=== PATIENT | female | born 1980 ===

== ENCOUNTER 2016-03-19 | Inpatient (IN) | END 2017-03-18 23:59 | disposition other institution (70) | DRG 189 | DX: J96.10 Chronic respiratory failure, unspecified whether with hypoxia or hypercapnia (principal); R40.3 Persistent vegetative state; R53.2 Functional quadriplegia; Z93.0 Tracheostomy status; R13.10 Dysphagia, unspecified; S12.000S Unspecified displaced fracture of first cervical vertebra, sequela; S12.100S Unspecified displaced fracture of second cervical vertebra, sequela; S12.200S Unspecified displaced fracture of third cervical vertebra, sequela; S12.300S Unspecified displaced fracture of fourth cervical vertebra, sequela; V89.2XXS Person injured in unspecified motor-vehicle accident, traffic, sequela; Z86.74 Personal history of sudden cardiac arrest; Z88.0 Allergy status to penicillin; Z93.1 Gastrostomy status; Z87.820 Personal history of traumatic brain injury; K21.9 Gastro-esophageal reflux disease without esophagitis; M24.50 Contracture, unspecified joint; I25.10 Atherosclerotic heart disease of native coronary artery without angina pectoris; D53.9 Nutritional anemia, unspecified; Z87.440 Personal history of urinary (tract) infections ==

== ENCOUNTER 2017-03-19 | Inpatient (IN) | END 2018-03-18 11:59 | disposition other institution (70) | DRG 189 | DX: J96.10 Chronic respiratory failure, unspecified whether with hypoxia or hypercapnia (principal); R53.2 Functional quadriplegia; R40.3 Persistent vegetative state; G93.40 Encephalopathy, unspecified; L03.113 Cellulitis of right upper limb; N39.0 Urinary tract infection, site not specified; R47.01 Aphasia; Z93.0 Tracheostomy status; R13.10 Dysphagia, unspecified; S12.000S Unspecified displaced fracture of first cervical vertebra, sequela; S12.100S Unspecified displaced fracture of second cervical vertebra, sequela; S12.200S Unspecified displaced fracture of third cervical vertebra, sequela; S12.300S Unspecified displaced fracture of fourth cervical vertebra, sequela; V89.2XXS Person injured in unspecified motor-vehicle accident, traffic, sequela; Z86.74 Personal history of sudden cardiac arrest; Z88.0 Allergy status to penicillin; Z93.1 Gastrostomy status; Z87.820 Personal history of traumatic brain injury; K21.9 Gastro-esophageal reflux disease without esophagitis; M24.50 Contracture, unspecified joint; I25.10 Atherosclerotic heart disease of native coronary artery without angina pectoris; D53.9 Nutritional anemia, unspecified; Z87.440 Personal history of urinary (tract) infections; D69.6 Thrombocytopenia, unspecified; K59.00 Constipation, unspecified; K80.20 Calculus of gallbladder without cholecystitis without obstruction; R21 Rash and other nonspecific skin eruption ==

== ENCOUNTER 2018-03-19 | Inpatient (IN) | END 2019-03-18 23:59 | disposition still patient (30) | DRG 189 | DX: J96.10 Chronic respiratory failure, unspecified whether with hypoxia or hypercapnia (principal); R53.2 Functional quadriplegia; R40.3 Persistent vegetative state; G93.40 Encephalopathy, unspecified; R47.01 Aphasia; Z93.0 Tracheostomy status; R13.10 Dysphagia, unspecified; S12.000S Unspecified displaced fracture of first cervical vertebra, sequela; S12.100S Unspecified displaced fracture of second cervical vertebra, sequela; S12.200S Unspecified displaced fracture of third cervical vertebra, sequela; S12.300S Unspecified displaced fracture of fourth cervical vertebra, sequela; V89.2XXS Person injured in unspecified motor-vehicle accident, traffic, sequela; Z86.74 Personal history of sudden cardiac arrest; Z88.0 Allergy status to penicillin; Z93.1 Gastrostomy status; Z87.820 Personal history of traumatic brain injury; K21.9 Gastro-esophageal reflux disease without esophagitis; M24.50 Contracture, unspecified joint; I25.10 Atherosclerotic heart disease of native coronary artery without angina pectoris; D53.9 Nutritional anemia, unspecified; Z87.440 Personal history of urinary (tract) infections; D69.6 Thrombocytopenia, unspecified; R21 Rash and other nonspecific skin eruption ==

== ENCOUNTER → 2020-03-18 23:59 | Inpatient (IN) | payer OTHER, MEDICARE ==
[2019-03-20] MEDS: MIDODRINE 10 MG PEG SCH ×2 (14:20→21:37)
[2019-03-20 14:34] VITALS: BP 103/61
[2019-03-20] MEDS: ACETAMINOPHEN 650 MG/20 ML UDC- SA PATIENTS-PAIN ONLY PEG SCH (16:42)
[2019-03-20] MEDS: TIZANIDINE HCL 4 MG TABLET PEG SCH (16:43)
[2019-03-20 20:00] VITALS: BP 102/64
[2019-03-20] MEDS: HYDROGEN PEROXIDE 3% 118 ML BOTTLE TP SCH (20:42)
[2019-03-20] MEDS: FERROUS SULFATE 330 MG/7.5 ML UDC- FOR SA ONLY GT SCH (21:33)
[2019-03-20] MEDS: NUTRISOURCE FIBER 4 GM PACKET PEG SCH (21:33)
[2019-03-20] MEDS: Z GUARD REMEDY PASTE 57 GM TUBE TOP SCH (21:36)
[2019-03-20] MEDS: PROTEIN SUPPLEMENT (PROSTAT) 30 ML LIQUID PEG SCH (21:36)
[2019-03-21] MEDS: TWOCAL HN 1,000 ML LIQUID PEG PRN (05:33)
[2019-03-21] MEDS: MIDODRINE 10 MG PEG SCH ×3 (05:34→21:02)
[2019-03-21] MEDS: OMEPRAZOLE 20 MG CAPSULE.DR GT SCH (05:34)
[2019-03-21 05:36] VITALS: BP 106/66
[2019-03-21] MEDS: TIZANIDINE HCL 4 MG TABLET PEG SCH ×2 (08:09→16:17)
[2019-03-21] MEDS: NUTRISOURCE FIBER 4 GM PACKET PEG SCH ×2 (08:09→20:03)
[2019-03-21] MEDS: PROTEIN SUPPLEMENT (PROSTAT) 30 ML LIQUID PEG SCH ×2 (08:09→20:03)
[2019-03-21] MEDS: FERROUS SULFATE 330 MG/7.5 ML UDC- FOR SA ONLY GT SCH ×2 (08:09→20:03)
[2019-03-21] MEDS: Z GUARD REMEDY PASTE 57 GM TUBE TOP SCH ×2 (08:10→20:03)
[2019-03-21] MEDS: HYDROGEN PEROXIDE 3% 118 ML BOTTLE TP SCH ×2 (09:57→21:40)
[2019-03-21 11:26] VITALS: BP 97/56
[2019-03-21] MEDS: ACETAMINOPHEN 650 MG/20 ML UDC- SA PATIENTS-PAIN ONLY PEG SCH (16:17)
[2019-03-21 20:16] VITALS: BP 91/48
[2019-03-22] MEDS: MULTIVIT, IRON, MIN NO. 8, FA TABLET GT SCH (05:35)
[2019-03-22] MEDS: MIDODRINE 10 MG PEG SCH ×3 (05:35→21:11)
[2019-03-22] MEDS: OMEPRAZOLE 20 MG CAPSULE.DR GT SCH (05:35)
[2019-03-22 07:47] VITALS: BP 93/57
[2019-03-22] MEDS: FERROUS SULFATE 330 MG/7.5 ML UDC- FOR SA ONLY GT SCH ×2 (09:05→20:19)
[2019-03-22] MEDS: Z GUARD REMEDY PASTE 57 GM TUBE TOP SCH ×2 (09:05→20:19)
[2019-03-22] MEDS: NUTRISOURCE FIBER 4 GM PACKET PEG SCH ×2 (09:05→20:19)
[2019-03-22] MEDS: PROTEIN SUPPLEMENT (PROSTAT) 30 ML LIQUID PEG SCH ×2 (09:05→20:19)
[2019-03-22] MEDS: TIZANIDINE HCL 4 MG TABLET PEG SCH ×2 (09:05→16:07)
[2019-03-22] MEDS: HYDROGEN PEROXIDE 3% 118 ML BOTTLE TP SCH ×2 (10:30→21:57)
[2019-03-22 13:30] VITALS: BP 91/54
[2019-03-22] MEDS: ACETAMINOPHEN 650 MG/20 ML UDC- SA PATIENTS-PAIN ONLY PEG SCH (16:08)
[2019-03-22] MEDS: TRIAMCINOLONE ACET 0.1% OINT 15 GM TUBE TP PRN (16:09)
[2019-03-22 20:16] VITALS: BP 113/69
--- NOTE | 2019-03-22 21:11 | NUR ---
2200 MIDODRINE 10MG TABLET HELD ORDERED DUE TO SBP GREATER THAN 110. BP IS 113/69, 66 HR. WILL CONTINUE TO MONITOR
[2019-03-22] MEDS: TWOCAL HN 1,000 ML LIQUID PEG PRN (21:49)
[2019-03-23] MEDS: OMEPRAZOLE 20 MG CAPSULE.DR GT SCH (05:36)
[2019-03-23] MEDS: MIDODRINE 10 MG PEG SCH ×3 (05:36→21:15)
[2019-03-23] MEDS: HYDROGEN PEROXIDE 3% 118 ML BOTTLE TP SCH ×2 (07:51→20:43)
[2019-03-23 08:03] VITALS: BP 122/71
[2019-03-23] MEDS: NUTRISOURCE FIBER 4 GM PACKET PEG SCH ×2 (08:58→21:15)
[2019-03-23] MEDS: Z GUARD REMEDY PASTE 57 GM TUBE TOP SCH ×2 (08:58→21:15)
[2019-03-23] MEDS: FERROUS SULFATE 330 MG/7.5 ML UDC- FOR SA ONLY GT SCH ×2 (08:58→21:15)
[2019-03-23] MEDS: PROTEIN SUPPLEMENT (PROSTAT) 30 ML LIQUID PEG SCH ×2 (08:58→21:15)
[2019-03-23] MEDS: TIZANIDINE HCL 4 MG TABLET PEG SCH ×2 (08:58→17:17)
[2019-03-23] MEDS: ACETAMINOPHEN 650 MG/20 ML UDC- SA PATIENTS-PAIN ONLY PEG SCH (17:17)
[2019-03-23 20:26] VITALS: BP 102/63
[2019-03-23] MEDS: DOCUSATE SODIUM 100 MG/10 ML LIQUID UDC GT PRN (21:15)
[2019-03-24] MEDS: OMEPRAZOLE 20 MG CAPSULE.DR GT SCH (05:39)
[2019-03-24] MEDS: MIDODRINE 10 MG PEG SCH ×3 (05:39→22:08)
[2019-03-24] MEDS: MULTIVIT, IRON, MIN NO. 8, FA TABLET GT SCH (05:40)
[2019-03-24 08:00] VITALS: BP 104/62
[2019-03-24] MEDS: TIZANIDINE HCL 4 MG TABLET PEG SCH ×2 (08:18→17:45)
[2019-03-24] MEDS: FERROUS SULFATE 330 MG/7.5 ML UDC- FOR SA ONLY GT SCH ×2 (08:18→20:46)
[2019-03-24] MEDS: NUTRISOURCE FIBER 4 GM PACKET PEG SCH ×2 (08:18→20:46)
[2019-03-24] MEDS: Z GUARD REMEDY PASTE 57 GM TUBE TOP SCH ×2 (08:18→20:46)
[2019-03-24] MEDS: PROTEIN SUPPLEMENT (PROSTAT) 30 ML LIQUID PEG SCH ×2 (08:18→20:46)
[2019-03-24] MEDS: HYDROGEN PEROXIDE 3% 118 ML BOTTLE TP SCH ×2 (09:00→21:18)
[2019-03-24] MEDS: ACETAMINOPHEN 650 MG/20 ML UDC- SA PATIENTS-PAIN ONLY PEG SCH (17:45)
[2019-03-24 20:05] VITALS: BP 100/60
[2019-03-25] MEDS: MIDODRINE 10 MG PEG SCH ×3 (05:49→21:48)
[2019-03-25] MEDS: OMEPRAZOLE 20 MG CAPSULE.DR GT SCH (05:49)
[2019-03-25 08:00] VITALS: BP 111/68
[2019-03-25] MEDS: HYDROGEN PEROXIDE 3% 118 ML BOTTLE TP SCH ×2 (09:00→21:27)
[2019-03-25] MEDS: FERROUS SULFATE 330 MG/7.5 ML UDC- FOR SA ONLY GT SCH ×2 (09:00→21:47)
[2019-03-25] MEDS: PROTEIN SUPPLEMENT (PROSTAT) 30 ML LIQUID PEG SCH ×2 (09:00→21:48)
[2019-03-25] MEDS: NUTRISOURCE FIBER 4 GM PACKET PEG SCH ×2 (09:00→21:48)
[2019-03-25] MEDS: TIZANIDINE HCL 4 MG TABLET PEG SCH ×2 (09:00→17:59)
[2019-03-25] MEDS: Z GUARD REMEDY PASTE 57 GM TUBE TOP SCH ×2 (09:00→21:48)
[2019-03-25] MEDS: ACETAMINOPHEN 650 MG/20 ML UDC- SA PATIENTS-PAIN ONLY PEG SCH (17:59)
[2019-03-25 19:51] VITALS: BP 100/57
[2019-03-26] MEDS: MULTIVIT, IRON, MIN NO. 8, FA TABLET GT SCH (06:15)
[2019-03-26] MEDS: OMEPRAZOLE 20 MG CAPSULE.DR GT SCH (06:15)
[2019-03-26] MEDS: MIDODRINE 10 MG PEG SCH ×3 (06:15→22:06)
[2019-03-26 08:00] VITALS: BP 109/64
[2019-03-26] MEDS: FERROUS SULFATE 330 MG/7.5 ML UDC- FOR SA ONLY GT SCH ×2 (08:14→21:00)
[2019-03-26] MEDS: Z GUARD REMEDY PASTE 57 GM TUBE TOP SCH ×2 (08:14→21:00)
[2019-03-26] MEDS: TIZANIDINE HCL 4 MG TABLET PEG SCH ×2 (08:14→17:13)
[2019-03-26] MEDS: NUTRISOURCE FIBER 4 GM PACKET PEG SCH ×2 (08:14→21:00)
[2019-03-26] MEDS: PROTEIN SUPPLEMENT (PROSTAT) 30 ML LIQUID PEG SCH ×2 (08:14→21:00)
[2019-03-26] MEDS: HYDROGEN PEROXIDE 3% 118 ML BOTTLE TP SCH ×2 (09:23→20:52)
--- NOTE | 2019-03-26 15:05 | NUR ---
1:45pm: JEY met with patient's mother Morena today and obtained signatures on all annual admission paperwork for patient's new chart. The paperwork included: Conditions of Admission, Patient Rights Acknowledgement, An Important Message from Medicare about your Rights, Documentation of Preferred Intensity of Care, Voluntary Prior Express Consent Form, Race and Ethnicity Patient Self-Identification, and the [facility] Agreement. JEY offered Morena a copy of the signed forms, and Morena declined stating that she has copies from previous signings. For assessment/quarterly information, see patient's previous chart #[id number].
[2019-03-26] MEDS: ACETAMINOPHEN 650 MG/20 ML UDC- SA PATIENTS-PAIN ONLY PEG SCH (17:13)
[2019-03-26 20:02] VITALS: BP 97/53
[2019-03-27] MEDS: TWOCAL HN 1,000 ML LIQUID PEG PRN (04:00)
[2019-03-27] MEDS: OMEPRAZOLE 20 MG CAPSULE.DR GT SCH (05:59)
[2019-03-27] MEDS: MIDODRINE 10 MG PEG SCH ×3 (06:00→21:38)
[2019-03-27 08:04] VITALS: BP 111/54
[2019-03-27] MEDS: PROTEIN SUPPLEMENT (PROSTAT) 30 ML LIQUID PEG SCH ×2 (08:55→21:37)
[2019-03-27] MEDS: NUTRISOURCE FIBER 4 GM PACKET PEG SCH ×2 (08:55→21:37)
[2019-03-27] MEDS: FERROUS SULFATE 330 MG/7.5 ML UDC- FOR SA ONLY GT SCH ×2 (08:55→21:37)
[2019-03-27] MEDS: Z GUARD REMEDY PASTE 57 GM TUBE TOP SCH ×2 (08:55→21:37)
[2019-03-27] MEDS: TIZANIDINE HCL 4 MG TABLET PEG SCH ×2 (08:55→16:11)
[2019-03-27] MEDS: HYDROGEN PEROXIDE 3% 118 ML BOTTLE TP SCH ×2 (09:00→21:00)
[2019-03-27 14:23] VITALS: BP 96/53
[2019-03-27] MEDS: ACETAMINOPHEN 650 MG/20 ML UDC- SA PATIENTS-PAIN ONLY PEG SCH (16:11)
[2019-03-27] MEDS: POLYVINYL ALCOHOL OPHT DROPS 15 ML BOTTLE EACHEYE PRN (17:06)
[2019-03-27] MEDS: TRIAMCINOLONE ACET 0.1% OINT 15 GM TUBE TP PRN (17:06)
[2019-03-27 20:34] VITALS: BP 106/61
[2019-03-28] MEDS: MIDODRINE 10 MG PEG SCH ×3 (05:58→21:40)
[2019-03-28] MEDS: OMEPRAZOLE 20 MG CAPSULE.DR GT SCH (05:58)
[2019-03-28] MEDS: MULTIVIT, IRON, MIN NO. 8, FA TABLET GT SCH (05:59)
[2019-03-28 08:05] VITALS: BP 97/57
[2019-03-28] MEDS: Z GUARD REMEDY PASTE 57 GM TUBE TOP SCH ×2 (08:33→21:40)
[2019-03-28] MEDS: NUTRISOURCE FIBER 4 GM PACKET PEG SCH ×2 (08:33→21:40)
[2019-03-28] MEDS: FERROUS SULFATE 330 MG/7.5 ML UDC- FOR SA ONLY GT SCH ×2 (08:33→21:40)
[2019-03-28] MEDS: TIZANIDINE HCL 4 MG TABLET PEG SCH ×2 (08:33→16:31)
[2019-03-28] MEDS: PROTEIN SUPPLEMENT (PROSTAT) 30 ML LIQUID PEG SCH ×2 (08:33→21:40)
[2019-03-28] MEDS: HYDROGEN PEROXIDE 3% 118 ML BOTTLE TP SCH ×2 (09:00→21:17)
[2019-03-28 14:48] VITALS: BP 98/64
[2019-03-28] MEDS: ACETAMINOPHEN 650 MG/20 ML UDC- SA PATIENTS-PAIN ONLY PEG SCH (16:31)
[2019-03-28 20:07] VITALS: BP 99/55
[2019-03-29] MEDS: TWOCAL HN 1,000 ML LIQUID PEG PRN (04:33)
[2019-03-29] MEDS: MIDODRINE 10 MG PEG SCH ×3 (05:13→21:24)
[2019-03-29] MEDS: OMEPRAZOLE 20 MG CAPSULE.DR GT SCH (05:13)
[2019-03-29 08:00] VITALS: BP 117/64
[2019-03-29] MEDS: FERROUS SULFATE 330 MG/7.5 ML UDC- FOR SA ONLY GT SCH ×2 (08:30→21:21)
[2019-03-29] MEDS: PROTEIN SUPPLEMENT (PROSTAT) 30 ML LIQUID PEG SCH ×2 (08:30→21:22)
[2019-03-29] MEDS: Z GUARD REMEDY PASTE 57 GM TUBE TOP SCH ×2 (08:30→21:22)
[2019-03-29] MEDS: TIZANIDINE HCL 4 MG TABLET PEG SCH ×2 (08:30→17:36)
[2019-03-29] MEDS: NUTRISOURCE FIBER 4 GM PACKET PEG SCH ×2 (08:30→21:22)
[2019-03-29] MEDS: POLYVINYL ALCOHOL OPHT DROPS 15 ML BOTTLE EACHEYE PRN (08:30)
[2019-03-29] MEDS: TRIAMCINOLONE ACET 0.1% OINT 15 GM TUBE TP PRN (08:31)
[2019-03-29] MEDS: HYDROGEN PEROXIDE 3% 118 ML BOTTLE TP SCH ×2 (09:39→20:54)
[2019-03-29 10:34] VITALS: BP 117/64
[2019-03-29 14:13] VITALS: BP 98/60
[2019-03-29] MEDS: ACETAMINOPHEN 650 MG/20 ML UDC- SA PATIENTS-PAIN ONLY PEG SCH (17:36)
[2019-03-30] MEDS: MULTIVIT, IRON, MIN NO. 8, FA TABLET GT SCH (06:07)
[2019-03-30] MEDS: OMEPRAZOLE 20 MG CAPSULE.DR GT SCH (06:07)
[2019-03-30] MEDS: MIDODRINE 10 MG PEG SCH ×3 (06:07→21:10)
[2019-03-30 08:00] VITALS: BP 101/66
[2019-03-30] MEDS: Z GUARD REMEDY PASTE 57 GM TUBE TOP SCH ×2 (08:44→21:10)
[2019-03-30] MEDS: TIZANIDINE HCL 4 MG TABLET PEG SCH ×2 (08:44→16:56)
[2019-03-30] MEDS: NUTRISOURCE FIBER 4 GM PACKET PEG SCH ×2 (08:44→21:10)
[2019-03-30] MEDS: FERROUS SULFATE 330 MG/7.5 ML UDC- FOR SA ONLY GT SCH ×2 (08:44→21:10)
[2019-03-30] MEDS: PROTEIN SUPPLEMENT (PROSTAT) 30 ML LIQUID PEG SCH ×2 (08:44→21:10)
[2019-03-30] MEDS: HYDROGEN PEROXIDE 3% 118 ML BOTTLE TP SCH ×2 (10:06→20:52)
[2019-03-30] MEDS: ACETAMINOPHEN 650 MG/20 ML UDC- SA PATIENTS-PAIN ONLY PEG SCH (16:56)
[2019-03-30 19:53] VITALS: BP 97/49
[2019-03-31] MEDS: OMEPRAZOLE 20 MG CAPSULE.DR GT SCH (05:35)
[2019-03-31] MEDS: MIDODRINE 10 MG PEG SCH ×3 (05:35→22:00)
[2019-03-31 08:00] VITALS: BP 109/66
[2019-03-31] MEDS: HYDROGEN PEROXIDE 3% 118 ML BOTTLE TP SCH ×2 (09:00→20:16)
[2019-03-31] MEDS: FERROUS SULFATE 330 MG/7.5 ML UDC- FOR SA ONLY GT SCH ×2 (09:32→21:50)
[2019-03-31] MEDS: Z GUARD REMEDY PASTE 57 GM TUBE TOP SCH ×2 (09:32→21:50)
[2019-03-31] MEDS: PROTEIN SUPPLEMENT (PROSTAT) 30 ML LIQUID PEG SCH ×2 (09:32→21:50)
[2019-03-31] MEDS: TIZANIDINE HCL 4 MG TABLET PEG SCH ×2 (09:32→16:34)
[2019-03-31] MEDS: NUTRISOURCE FIBER 4 GM PACKET PEG SCH ×2 (09:32→21:50)
[2019-03-31 14:44] VITALS: BP 109/60
--- NOTE | 2019-03-31 15:42 | NUR ---
SW notified patient's mother Morena via email that the next IDT meeting for the patient is scheduled for 04/08/2019 at 11am.
[2019-03-31] MEDS: ACETAMINOPHEN 650 MG/20 ML UDC- SA PATIENTS-PAIN ONLY PEG SCH (16:34)
[2019-03-31 20:21] VITALS: BP 97/50
[2019-04-01 05:05] VITALS: BP 97/58
[2019-04-01] MEDS: OMEPRAZOLE 20 MG CAPSULE.DR GT SCH (05:09)
[2019-04-01] MEDS: MIDODRINE 10 MG PEG SCH ×3 (05:09→21:51)
[2019-04-01] MEDS: MULTIVIT, IRON, MIN NO. 8, FA TABLET GT SCH (05:37)
[2019-04-01 08:00] VITALS: BP 113/73
[2019-04-01] MEDS: NUTRISOURCE FIBER 4 GM PACKET PEG SCH ×2 (08:49→21:51)
[2019-04-01] MEDS: TIZANIDINE HCL 4 MG TABLET PEG SCH ×2 (08:49→16:00)
[2019-04-01] MEDS: FERROUS SULFATE 330 MG/7.5 ML UDC- FOR SA ONLY GT SCH ×2 (08:49→21:51)
[2019-04-01] MEDS: PROTEIN SUPPLEMENT (PROSTAT) 30 ML LIQUID PEG SCH ×2 (08:49→21:51)
[2019-04-01] MEDS: Z GUARD REMEDY PASTE 57 GM TUBE TOP SCH ×2 (08:49→21:51)
[2019-04-01] MEDS: HYDROGEN PEROXIDE 3% 118 ML BOTTLE TP SCH ×2 (09:00→20:56)
[2019-04-01] MEDS: ACETAMINOPHEN 650 MG/20 ML UDC- SA PATIENTS-PAIN ONLY PEG SCH (16:00)
[2019-04-01 19:47] VITALS: BP 91/60
[2019-04-02] MEDS: MIDODRINE 10 MG PEG SCH ×3 (06:05→22:22)
[2019-04-02] MEDS: OMEPRAZOLE 20 MG CAPSULE.DR GT SCH (06:05)
[2019-04-02 07:56] VITALS: BP 91/45
[2019-04-02] MEDS: TIZANIDINE HCL 4 MG TABLET PEG SCH ×2 (08:42→16:08)
[2019-04-02] MEDS: NUTRISOURCE FIBER 4 GM PACKET PEG SCH ×2 (08:42→20:32)
[2019-04-02] MEDS: PROTEIN SUPPLEMENT (PROSTAT) 30 ML LIQUID PEG SCH ×2 (08:42→20:33)
[2019-04-02] MEDS: Z GUARD REMEDY PASTE 57 GM TUBE TOP SCH ×2 (08:42→20:33)
[2019-04-02] MEDS: FERROUS SULFATE 330 MG/7.5 ML UDC- FOR SA ONLY GT SCH ×2 (08:42→20:27)
[2019-04-02] MEDS: HYDROGEN PEROXIDE 3% 118 ML BOTTLE TP SCH ×2 (08:57→21:10)
[2019-04-02] MEDS: ACETAMINOPHEN 650 MG/20 ML UDC- SA PATIENTS-PAIN ONLY PEG SCH (16:08)
[2019-04-02 20:09] VITALS: BP 93/51
[2019-04-03] MEDS: OMEPRAZOLE 20 MG CAPSULE.DR GT SCH (05:11)
[2019-04-03] MEDS: MIDODRINE 10 MG PEG SCH ×3 (05:12→21:48)
[2019-04-03] MEDS: MULTIVIT, IRON, MIN NO. 8, FA TABLET GT SCH (05:31)
[2019-04-03 08:00] VITALS: BP 120/60
[2019-04-03] MEDS: TIZANIDINE HCL 4 MG TABLET PEG SCH ×2 (08:52→17:28)
[2019-04-03] MEDS: PROTEIN SUPPLEMENT (PROSTAT) 30 ML LIQUID PEG SCH ×2 (08:52→20:33)
[2019-04-03] MEDS: FERROUS SULFATE 330 MG/7.5 ML UDC- FOR SA ONLY GT SCH ×2 (08:52→20:33)
[2019-04-03] MEDS: NUTRISOURCE FIBER 4 GM PACKET PEG SCH ×2 (08:52→20:33)
[2019-04-03] MEDS: Z GUARD REMEDY PASTE 57 GM TUBE TOP SCH ×2 (08:53→20:33)
[2019-04-03] MEDS: HYDROGEN PEROXIDE 3% 118 ML BOTTLE TP SCH ×2 (09:50→21:26)
[2019-04-03 14:17] VITALS: BP 109/58
[2019-04-03] MEDS: ACETAMINOPHEN 650 MG/20 ML UDC- SA PATIENTS-PAIN ONLY PEG SCH (17:28)
[2019-04-03] MEDS: POLYVINYL ALCOHOL OPHT DROPS 15 ML BOTTLE EACHEYE PRN (18:41)
[2019-04-03 20:19] VITALS: BP 125/69
[2019-04-04] MEDS: TWOCAL HN 1,000 ML LIQUID PEG PRN (04:19)
[2019-04-04] MEDS: OMEPRAZOLE 20 MG CAPSULE.DR GT SCH (05:37)
[2019-04-04] MEDS: MIDODRINE 10 MG PEG SCH ×3 (05:37→22:43)
[2019-04-04 08:00] VITALS: BP 110/64
[2019-04-04] MEDS: FERROUS SULFATE 330 MG/7.5 ML UDC- FOR SA ONLY GT SCH ×2 (08:35→20:18)
[2019-04-04] MEDS: NUTRISOURCE FIBER 4 GM PACKET PEG SCH ×2 (08:36→20:18)
[2019-04-04] MEDS: TIZANIDINE HCL 4 MG TABLET PEG SCH ×2 (08:36→17:06)
[2019-04-04] MEDS: PROTEIN SUPPLEMENT (PROSTAT) 30 ML LIQUID PEG SCH ×2 (08:36→20:18)
[2019-04-04] MEDS: Z GUARD REMEDY PASTE 57 GM TUBE TOP SCH ×2 (08:37→20:18)
[2019-04-04] MEDS: HYDROGEN PEROXIDE 3% 118 ML BOTTLE TP SCH ×2 (10:00→21:27)
[2019-04-04] MEDS: ACETAMINOPHEN 650 MG/20 ML UDC- SA PATIENTS-PAIN ONLY PEG SCH (17:06)
[2019-04-04 20:49] VITALS: BP 110/61
[2019-04-05] MEDS: MIDODRINE 10 MG PEG SCH ×3 (05:15→21:23)
[2019-04-05] MEDS: OMEPRAZOLE 20 MG CAPSULE.DR GT SCH (05:15)
[2019-04-05 05:16] VITALS: BP 94/54
[2019-04-05] MEDS: MULTIVIT, IRON, MIN NO. 8, FA TABLET GT SCH (06:02)
[2019-04-05 08:00] VITALS: BP 110/61
[2019-04-05] MEDS: HYDROGEN PEROXIDE 3% 118 ML BOTTLE TP SCH ×2 (08:06→21:02)
[2019-04-05] MEDS: PROTEIN SUPPLEMENT (PROSTAT) 30 ML LIQUID PEG SCH ×2 (08:16→20:15)
[2019-04-05] MEDS: Z GUARD REMEDY PASTE 57 GM TUBE TOP SCH ×2 (08:16→20:15)
[2019-04-05] MEDS: TIZANIDINE HCL 4 MG TABLET PEG SCH ×2 (08:16→17:37)
[2019-04-05] MEDS: NUTRISOURCE FIBER 4 GM PACKET PEG SCH ×2 (08:16→20:15)
[2019-04-05] MEDS: FERROUS SULFATE 330 MG/7.5 ML UDC- FOR SA ONLY GT SCH ×2 (08:16→20:15)
[2019-04-05 13:00] VITALS: BP 122/74
[2019-04-05] MEDS: ACETAMINOPHEN 650 MG/20 ML UDC- SA PATIENTS-PAIN ONLY PEG SCH (17:37)
[2019-04-05 20:19] VITALS: BP 106/57
[2019-04-06] MEDS: TWOCAL HN 1,000 ML LIQUID PEG PRN (02:11)
[2019-04-06] MEDS: TRIAMCINOLONE ACET 0.1% OINT 15 GM TUBE TP PRN (04:19)
[2019-04-06] MEDS: MIDODRINE 10 MG PEG SCH ×3 (05:23→21:39)
[2019-04-06] MEDS: OMEPRAZOLE 20 MG CAPSULE.DR GT SCH (05:23)
[2019-04-06 05:24] VITALS: BP 120/63
[2019-04-06] MEDS: PROTEIN SUPPLEMENT (PROSTAT) 30 ML LIQUID PEG SCH ×2 (08:17→20:40)
[2019-04-06] MEDS: NUTRISOURCE FIBER 4 GM PACKET PEG SCH ×2 (08:17→20:40)
[2019-04-06] MEDS: TIZANIDINE HCL 4 MG TABLET PEG SCH ×2 (08:17→17:04)
[2019-04-06] MEDS: Z GUARD REMEDY PASTE 57 GM TUBE TOP SCH ×2 (08:17→20:40)
[2019-04-06] MEDS: FERROUS SULFATE 330 MG/7.5 ML UDC- FOR SA ONLY GT SCH ×2 (08:17→20:40)
[2019-04-06 08:30] VITALS: BP 112/67
[2019-04-06] MEDS: HYDROGEN PEROXIDE 3% 118 ML BOTTLE TP SCH ×2 (10:00→20:50)
[2019-04-06 13:30] VITALS: BP 106/64
[2019-04-06] MEDS: ACETAMINOPHEN 650 MG/20 ML UDC- SA PATIENTS-PAIN ONLY PEG SCH (17:04)
[2019-04-06 20:42] VITALS: BP 101/54
[2019-04-07] MEDS: OMEPRAZOLE 20 MG CAPSULE.DR GT SCH (05:07)
[2019-04-07 05:08] VITALS: BP 114/64
[2019-04-07] MEDS: MIDODRINE 10 MG PEG SCH ×3 (05:08→21:33)
[2019-04-07] MEDS: MULTIVIT, IRON, MIN NO. 8, FA TABLET GT SCH (06:09)
[2019-04-07 08:00] VITALS: BP 114/63
[2019-04-07] MEDS: HYDROGEN PEROXIDE 3% 118 ML BOTTLE TP SCH ×2 (09:00→21:09)
[2019-04-07] MEDS: PROTEIN SUPPLEMENT (PROSTAT) 30 ML LIQUID PEG SCH ×2 (09:03→21:33)
[2019-04-07] MEDS: NUTRISOURCE FIBER 4 GM PACKET PEG SCH ×2 (09:03→21:33)
[2019-04-07] MEDS: FERROUS SULFATE 330 MG/7.5 ML UDC- FOR SA ONLY GT SCH ×2 (09:03→21:33)
[2019-04-07] MEDS: TIZANIDINE HCL 4 MG TABLET PEG SCH ×2 (09:04→16:04)
[2019-04-07] MEDS: Z GUARD REMEDY PASTE 57 GM TUBE TOP SCH ×2 (09:04→21:33)
[2019-04-07 14:04] VITALS: BP 92/59
[2019-04-07] MEDS: POLYVINYL ALCOHOL OPHT DROPS 15 ML BOTTLE EACHEYE PRN (16:05)
[2019-04-07] MEDS: ACETAMINOPHEN 650 MG/20 ML UDC- SA PATIENTS-PAIN ONLY PEG SCH (16:05)
[2019-04-07] MEDS: TRIAMCINOLONE ACET 0.1% OINT 15 GM TUBE TP PRN (16:05)
[2019-04-07 20:37] VITALS: BP 111/59
[2019-04-08 06:04] VITALS: BP 107/62
[2019-04-08] MEDS: OMEPRAZOLE 20 MG CAPSULE.DR GT SCH (06:04)
[2019-04-08] MEDS: MIDODRINE 10 MG PEG SCH ×3 (06:04→21:57)
[2019-04-08] MEDS: TWOCAL HN 1,000 ML LIQUID PEG PRN (06:07)
[2019-04-08 08:00] VITALS: BP 122/62
[2019-04-08] MEDS: TIZANIDINE HCL 4 MG TABLET PEG SCH ×2 (08:51→16:23)
[2019-04-08] MEDS: NUTRISOURCE FIBER 4 GM PACKET PEG SCH ×2 (08:51→21:56)
[2019-04-08] MEDS: FERROUS SULFATE 330 MG/7.5 ML UDC- FOR SA ONLY GT SCH ×2 (08:51→21:56)
[2019-04-08] MEDS: TRIAMCINOLONE ACET 0.1% OINT 15 GM TUBE TP PRN (08:51)
[2019-04-08] MEDS: Z GUARD REMEDY PASTE 57 GM TUBE TOP SCH ×2 (08:51→21:57)
[2019-04-08] MEDS: PROTEIN SUPPLEMENT (PROSTAT) 30 ML LIQUID PEG SCH ×2 (08:51→21:57)
[2019-04-08] MEDS: HYDROGEN PEROXIDE 3% 118 ML BOTTLE TP SCH ×2 (09:00→21:13)
[2019-04-08 14:26] VITALS: BP 98/60
--- NOTE | 2019-04-08 14:56 | NUR ---
INTERDISCIPLINARY PLAN OF CARE CONFERENCE was held today. Patient's mother Morena was invited to the meeting, but this SW was informed by BENTLEY Wolfe this morning that Morena called and informed Yaneth that she would not be able to attend the meeting, and that she had no concerns at this time. Dr. Caraballo and the Interdisciplinary Team reviewed the current plan of care in detail. RN reported on patient's current medical condition. No major changes in condition were reported. See RN IDT conference notes. See also all other disciplines IDT notes and physician's progress notes for additional details.
[2019-04-08] MEDS: ACETAMINOPHEN 650 MG/20 ML UDC- SA PATIENTS-PAIN ONLY PEG SCH (16:24)
[2019-04-08 23:38] VITALS: BP 94/45
[2019-04-09] MEDS: MULTIVIT, IRON, MIN NO. 8, FA TABLET GT SCH (06:07)
[2019-04-09] MEDS: MIDODRINE 10 MG PEG SCH ×3 (06:07→22:12)
[2019-04-09] MEDS: OMEPRAZOLE 20 MG CAPSULE.DR GT SCH (06:07)
[2019-04-09 08:00] VITALS: BP 121/71
[2019-04-09] MEDS: PROTEIN SUPPLEMENT (PROSTAT) 30 ML LIQUID PEG SCH ×2 (08:55→21:00)
[2019-04-09] MEDS: TIZANIDINE HCL 4 MG TABLET PEG SCH ×2 (08:55→17:01)
[2019-04-09] MEDS: FERROUS SULFATE 330 MG/7.5 ML UDC- FOR SA ONLY GT SCH ×2 (08:55→21:00)
[2019-04-09] MEDS: NUTRISOURCE FIBER 4 GM PACKET PEG SCH ×2 (08:55→21:00)
[2019-04-09] MEDS: Z GUARD REMEDY PASTE 57 GM TUBE TOP SCH ×2 (08:56→21:00)
[2019-04-09] MEDS: HYDROGEN PEROXIDE 3% 118 ML BOTTLE TP SCH ×2 (09:00→20:59)
[2019-04-09 13:56] VITALS: BP 98/50
[2019-04-09] MEDS: ACETAMINOPHEN 650 MG/20 ML UDC- SA PATIENTS-PAIN ONLY PEG SCH (17:01)
[2019-04-09 20:25] VITALS: BP 90/53
[2019-04-10] MEDS: MIDODRINE 10 MG PEG SCH ×3 (05:03→22:26)
[2019-04-10] MEDS: OMEPRAZOLE 20 MG CAPSULE.DR GT SCH (05:03)
[2019-04-10] MEDS: TWOCAL HN 1,000 ML LIQUID PEG PRN (06:07)
[2019-04-10 08:30] VITALS: BP 120/70
[2019-04-10] MEDS: Z GUARD REMEDY PASTE 57 GM TUBE TOP SCH ×2 (08:40→20:29)
[2019-04-10] MEDS: TIZANIDINE HCL 4 MG TABLET PEG SCH ×2 (08:40→17:17)
[2019-04-10] MEDS: NUTRISOURCE FIBER 4 GM PACKET PEG SCH ×2 (08:40→20:29)
[2019-04-10] MEDS: FERROUS SULFATE 330 MG/7.5 ML UDC- FOR SA ONLY GT SCH ×2 (08:40→20:29)
[2019-04-10] MEDS: PROTEIN SUPPLEMENT (PROSTAT) 30 ML LIQUID PEG SCH ×2 (08:40→20:29)
[2019-04-10] MEDS: HYDROGEN PEROXIDE 3% 118 ML BOTTLE TP SCH ×2 (09:46→20:53)
[2019-04-10 14:22] VITALS: BP 94/67
[2019-04-10] MEDS: ACETAMINOPHEN 650 MG/20 ML UDC- SA PATIENTS-PAIN ONLY PEG SCH (17:17)
[2019-04-10 20:52] VITALS: BP 91/60
[2019-04-11] MEDS: MIDODRINE 10 MG PEG SCH ×3 (05:41→21:48)
[2019-04-11] MEDS: MULTIVIT, IRON, MIN NO. 8, FA TABLET GT SCH (05:41)
[2019-04-11] MEDS: OMEPRAZOLE 20 MG CAPSULE.DR GT SCH (05:41)
[2019-04-11 08:03] VITALS: BP 101/56
[2019-04-11] MEDS: Z GUARD REMEDY PASTE 57 GM TUBE TOP SCH ×2 (08:30→20:12)
[2019-04-11] MEDS: TIZANIDINE HCL 4 MG TABLET PEG SCH ×2 (08:30→17:20)
[2019-04-11] MEDS: NUTRISOURCE FIBER 4 GM PACKET PEG SCH ×2 (08:30→20:12)
[2019-04-11] MEDS: FERROUS SULFATE 330 MG/7.5 ML UDC- FOR SA ONLY GT SCH ×2 (08:30→20:12)
[2019-04-11] MEDS: PROTEIN SUPPLEMENT (PROSTAT) 30 ML LIQUID PEG SCH ×2 (08:30→20:12)
[2019-04-11] MEDS: HYDROGEN PEROXIDE 3% 118 ML BOTTLE TP SCH ×2 (09:00→20:55)
[2019-04-11 14:00] VITALS: BP 90/62
[2019-04-11] MEDS: ACETAMINOPHEN 650 MG/20 ML UDC- SA PATIENTS-PAIN ONLY PEG SCH (17:20)
[2019-04-11 20:49] VITALS: BP 95/53
[2019-04-12] MEDS: MIDODRINE 10 MG PEG SCH ×3 (05:06→21:12)
[2019-04-12] MEDS: OMEPRAZOLE 20 MG CAPSULE.DR GT SCH (05:06)
[2019-04-12] MEDS: TWOCAL HN 1,000 ML LIQUID PEG PRN (05:07)
[2019-04-12 08:03] VITALS: BP 127/94
[2019-04-12] MEDS: TIZANIDINE HCL 4 MG TABLET PEG SCH ×2 (09:09→16:44)
[2019-04-12] MEDS: FERROUS SULFATE 330 MG/7.5 ML UDC- FOR SA ONLY GT SCH ×2 (09:09→21:10)
[2019-04-12] MEDS: PROTEIN SUPPLEMENT (PROSTAT) 30 ML LIQUID PEG SCH ×2 (09:09→21:10)
[2019-04-12] MEDS: Z GUARD REMEDY PASTE 57 GM TUBE TOP SCH ×2 (09:09→21:12)
[2019-04-12] MEDS: NUTRISOURCE FIBER 4 GM PACKET PEG SCH ×2 (09:09→21:10)
[2019-04-12] MEDS: HYDROGEN PEROXIDE 3% 118 ML BOTTLE TP SCH ×2 (09:21→21:12)
[2019-04-12 14:12] VITALS: BP 111/63
[2019-04-12] MEDS: ACETAMINOPHEN 650 MG/20 ML UDC- SA PATIENTS-PAIN ONLY PEG SCH (16:44)
[2019-04-12 20:44] VITALS: BP 96/57
[2019-04-13] MEDS: MIDODRINE 10 MG PEG SCH ×3 (05:18→22:00)
[2019-04-13] MEDS: OMEPRAZOLE 20 MG CAPSULE.DR GT SCH (05:18)
[2019-04-13] MEDS: MULTIVIT, IRON, MIN NO. 8, FA TABLET GT SCH (05:33)
[2019-04-13] MEDS: HYDROGEN PEROXIDE 3% 118 ML BOTTLE TP SCH ×2 (08:30→20:57)
[2019-04-13] MEDS: NUTRISOURCE FIBER 4 GM PACKET PEG SCH ×2 (08:43→20:38)
[2019-04-13] MEDS: PROTEIN SUPPLEMENT (PROSTAT) 30 ML LIQUID PEG SCH ×2 (08:43→20:38)
[2019-04-13] MEDS: TIZANIDINE HCL 4 MG TABLET PEG SCH ×2 (08:43→16:42)
[2019-04-13] MEDS: Z GUARD REMEDY PASTE 57 GM TUBE TOP SCH ×2 (08:43→20:38)
[2019-04-13] MEDS: FERROUS SULFATE 330 MG/7.5 ML UDC- FOR SA ONLY GT SCH ×2 (08:43→20:38)
[2019-04-13 11:00] VITALS: BP 104/65
[2019-04-13] MEDS: ACETAMINOPHEN 650 MG/20 ML UDC- SA PATIENTS-PAIN ONLY PEG SCH (16:42)
[2019-04-13 21:11] VITALS: BP 118/60
[2019-04-14] MEDS: MIDODRINE 10 MG PEG SCH ×3 (05:32→21:47)
[2019-04-14] MEDS: OMEPRAZOLE 20 MG CAPSULE.DR GT SCH (05:32)
[2019-04-14] MEDS: TWOCAL HN 1,000 ML LIQUID PEG PRN (05:32)
[2019-04-14 08:00] VITALS: BP 122/49
--- NOTE | 2019-04-14 08:41 | NUR ---
Pharmacy Update from 04/08/19 IDT Meeting VS: Temp 98.2 BP 107/62 HR 86 LABS: (from 09/13/18, no new labs) Wbc 8.5 H/H 13/39.5 Plt 226 Na 137 K 3.9 Cl 102 CO2 27 BUN/SCr 12/0.5 BS 90 Ca 8.7 phos 3.3 Mg 2.1 MEDICATION USE REVIEWED: > Pt not on any anti-epileptic or anti-psych medications > Pt on Midodrine 10mg q8hr ATC with parameters for hold SBP >110 > PRN MED USAGE: (Dec) Tylenol for pain used x 3 Tylenol for temp used x 0 Artificial tears used x 2 Docusate PRN x2 NEW ORDERS NOTED: > NA Patient reviewed and discussed at IDT with no medication issues at this time, remains stable on current medications. No further rx recs at this time, will continue to follow
[2019-04-14] MEDS: HYDROGEN PEROXIDE 3% 118 ML BOTTLE TP SCH ×2 (09:00→21:52)
--- NOTE | 2019-04-14 09:07 | NUR ---
SEEN AND EXAMINED BY LORENZO Jones AND WITH DIONISIOO.
[2019-04-14] MEDS: FERROUS SULFATE 330 MG/7.5 ML UDC- FOR SA ONLY GT SCH ×2 (09:39→20:39)
[2019-04-14] MEDS: NUTRISOURCE FIBER 4 GM PACKET PEG SCH ×2 (09:39→20:39)
[2019-04-14] MEDS: PROTEIN SUPPLEMENT (PROSTAT) 30 ML LIQUID PEG SCH ×2 (09:39→20:39)
[2019-04-14] MEDS: TIZANIDINE HCL 4 MG TABLET PEG SCH ×2 (09:39→17:00)
[2019-04-14] MEDS: Z GUARD REMEDY PASTE 57 GM TUBE TOP SCH ×2 (09:40→20:39)
--- NOTE | 2019-04-14 16:25 | NUR ---
4:05pm: Patient's mother Morena came in to meet with this SW today. Morena informed this SW that she plans to move to the [facility] area in the next month or two, and would like to move the patient closer to her once she moves. Morena asked this SW if SW can provide her with a list of subacute facilities in the following areas: [facility], [place], and [place]. SW agreed to look into these resources and provided them to Morena in order to Morena to explore her options and pick a subacute facility that she would want the patient to be transferred to. Morena expressed agreement.
[2019-04-14] MEDS: ACETAMINOPHEN 650 MG/20 ML UDC- SA PATIENTS-PAIN ONLY PEG SCH (17:00)
[2019-04-14 22:10] VITALS: BP 100/65
[2019-04-15] MEDS: MIDODRINE 10 MG PEG SCH ×3 (05:01→21:12)
[2019-04-15] MEDS: OMEPRAZOLE 20 MG CAPSULE.DR GT SCH (05:01)
[2019-04-15] MEDS: MULTIVIT, IRON, MIN NO. 8, FA TABLET GT SCH (06:06)
[2019-04-15 08:00] VITALS: BP 104/63
[2019-04-15] MEDS: HYDROGEN PEROXIDE 3% 118 ML BOTTLE TP SCH ×2 (09:00→21:07)
[2019-04-15] MEDS: TIZANIDINE HCL 4 MG TABLET PEG SCH ×2 (09:26→17:35)
[2019-04-15] MEDS: NUTRISOURCE FIBER 4 GM PACKET PEG SCH ×2 (09:26→21:11)
[2019-04-15] MEDS: Z GUARD REMEDY PASTE 57 GM TUBE TOP SCH ×2 (09:26→21:12)
[2019-04-15] MEDS: PROTEIN SUPPLEMENT (PROSTAT) 30 ML LIQUID PEG SCH ×2 (09:26→21:12)
[2019-04-15] MEDS: FERROUS SULFATE 330 MG/7.5 ML UDC- FOR SA ONLY GT SCH ×2 (09:26→21:12)
--- NOTE | 2019-04-15 11:08 | NUR ---
JEY received a voicemail message this morning from Wendy at Dr. Santana's office [phone], who stated that Dr. Santana will be coming in later today for patient's annual eye exam. JEY called patient's mother Morena [phone] and asked her if she was fine with patient having an eye exam by the irish moss gatherer. Morena stated that she was fine with patient getting an eye exam, but that she did not want patient to be assessed for eyeglasses because it was not something that patient would benefit from. JEY expressed understanding. JEY to inform Dr. Santana of above during eye exam.
--- NOTE | 2019-04-15 11:41 | NUR ---
JEY informed Cloth Finisher Pj Artis that patient's mother Morena is requesting to transfer patient to another subacute facility that will be closer to the city that she will be moving to, which will be [place]. Pj expressed understanding. JEY also spoke with GHULAM Gunter to Dr. Wu, and informed her of patient's mother's request to transfer patient to another subacute closer to her once she moves to [place]. Doris expressed understanding. SW to work with patient's mother, physician's, and interdisciplinary team for all discharge planning arrangements.
--- NOTE | 2019-04-15 14:51 | NUR ---
Patient seen today by Dr. Santana for her routine eye exam. See optometry notes for details.
[2019-04-15] MEDS: ACETAMINOPHEN 650 MG/20 ML UDC- SA PATIENTS-PAIN ONLY PEG SCH (17:35)
[2019-04-15 20:03] VITALS: BP 106/62
[2019-04-16] MEDS: TWOCAL HN 1,000 ML LIQUID PEG PRN (05:25)
[2019-04-16] MEDS: MIDODRINE 10 MG PEG SCH ×3 (05:25→22:51)
[2019-04-16] MEDS: OMEPRAZOLE 20 MG CAPSULE.DR GT SCH (05:25)
[2019-04-16] MEDS: HYDROGEN PEROXIDE 3% 118 ML BOTTLE TP SCH ×2 (08:16→21:07)
[2019-04-16] MEDS: PROTEIN SUPPLEMENT (PROSTAT) 30 ML LIQUID PEG SCH ×2 (09:25→20:06)
[2019-04-16] MEDS: NUTRISOURCE FIBER 4 GM PACKET PEG SCH ×2 (09:25→20:06)
[2019-04-16] MEDS: FERROUS SULFATE 330 MG/7.5 ML UDC- FOR SA ONLY GT SCH ×2 (09:25→20:06)
[2019-04-16] MEDS: Z GUARD REMEDY PASTE 57 GM TUBE TOP SCH ×2 (09:26→20:06)
[2019-04-16] MEDS: TIZANIDINE HCL 4 MG TABLET PEG SCH ×2 (09:26→16:14)
[2019-04-16] MEDS: TRIAMCINOLONE ACET 0.1% OINT 15 GM TUBE TP PRN (09:26)
[2019-04-16] MEDS: POLYVINYL ALCOHOL OPHT DROPS 15 ML BOTTLE EACHEYE PRN (09:26)
[2019-04-16] MEDS: ACETAMINOPHEN 650 MG/20 ML UDC- SA PATIENTS-PAIN ONLY PEG PRN (09:27)
[2019-04-16 14:14] VITALS: BP 93/52
[2019-04-16 14:55] VITALS: BP 117/55
[2019-04-16] MEDS: ACETAMINOPHEN 650 MG/20 ML UDC- SA PATIENTS-PAIN ONLY PEG SCH (16:15)
[2019-04-16 20:00] VITALS: BP 90/47
[2019-04-17] MEDS: OMEPRAZOLE 20 MG CAPSULE.DR GT SCH (05:07)
[2019-04-17] MEDS: MIDODRINE 10 MG PEG SCH ×3 (05:07→22:20)
[2019-04-17] MEDS: MULTIVIT, IRON, MIN NO. 8, FA TABLET GT SCH (05:40)
[2019-04-17] MEDS: TWOCAL HN 1,000 ML LIQUID PEG PRN (05:41)
[2019-04-17 08:30] VITALS: BP 107/60
[2019-04-17] MEDS: NUTRISOURCE FIBER 4 GM PACKET PEG SCH ×2 (08:33→20:50)
[2019-04-17] MEDS: PROTEIN SUPPLEMENT (PROSTAT) 30 ML LIQUID PEG SCH ×2 (08:33→20:50)
[2019-04-17] MEDS: TIZANIDINE HCL 4 MG TABLET PEG SCH ×2 (08:33→17:05)
[2019-04-17] MEDS: FERROUS SULFATE 330 MG/7.5 ML UDC- FOR SA ONLY GT SCH ×2 (08:33→20:50)
[2019-04-17] MEDS: Z GUARD REMEDY PASTE 57 GM TUBE TOP SCH ×2 (08:33→20:50)
[2019-04-17] MEDS: HYDROGEN PEROXIDE 3% 118 ML BOTTLE TP SCH ×2 (09:31→21:56)
[2019-04-17] MEDS: ACETAMINOPHEN 650 MG/20 ML UDC- SA PATIENTS-PAIN ONLY PEG SCH (17:05)
[2019-04-17 22:16] VITALS: BP 96/54
[2019-04-18] MEDS: TWOCAL HN 1,000 ML LIQUID PEG PRN (01:02)
[2019-04-18] MEDS: OMEPRAZOLE 20 MG CAPSULE.DR GT SCH (05:36)
[2019-04-18] MEDS: MIDODRINE 10 MG PEG SCH ×3 (05:36→21:12)
[2019-04-18 05:37] VITALS: BP 98/63
[2019-04-18 08:02] VITALS: BP 101/59
[2019-04-18] MEDS: TIZANIDINE HCL 4 MG TABLET PEG SCH ×2 (08:30→17:18)
[2019-04-18] MEDS: NUTRISOURCE FIBER 4 GM PACKET PEG SCH ×2 (08:30→20:41)
[2019-04-18] MEDS: Z GUARD REMEDY PASTE 57 GM TUBE TOP SCH ×2 (08:30→20:41)
[2019-04-18] MEDS: FERROUS SULFATE 330 MG/7.5 ML UDC- FOR SA ONLY GT SCH ×2 (08:30→20:40)
[2019-04-18] MEDS: PROTEIN SUPPLEMENT (PROSTAT) 30 ML LIQUID PEG SCH ×2 (08:30→20:41)
[2019-04-18] MEDS: HYDROGEN PEROXIDE 3% 118 ML BOTTLE TP SCH ×2 (10:30→21:00)
[2019-04-18] MEDS: ACETAMINOPHEN 650 MG/20 ML UDC- SA PATIENTS-PAIN ONLY PEG SCH (17:18)
[2019-04-18 21:12] VITALS: BP 96/51
[2019-04-19 05:31] VITALS: BP 92/60
[2019-04-19] MEDS: MIDODRINE 10 MG PEG SCH ×3 (05:31→22:02)
[2019-04-19] MEDS: MULTIVIT, IRON, MIN NO. 8, FA TABLET GT SCH (05:31)
[2019-04-19] MEDS: OMEPRAZOLE 20 MG CAPSULE.DR GT SCH (05:31)
[2019-04-19 08:03] VITALS: BP 104/54
[2019-04-19] MEDS: Z GUARD REMEDY PASTE 57 GM TUBE TOP SCH ×2 (09:03→21:00)
[2019-04-19] MEDS: PROTEIN SUPPLEMENT (PROSTAT) 30 ML LIQUID PEG SCH ×2 (09:03→21:00)
[2019-04-19] MEDS: NUTRISOURCE FIBER 4 GM PACKET PEG SCH ×2 (09:03→21:00)
[2019-04-19] MEDS: TIZANIDINE HCL 4 MG TABLET PEG SCH ×2 (09:03→16:59)
[2019-04-19] MEDS: FERROUS SULFATE 330 MG/7.5 ML UDC- FOR SA ONLY GT SCH ×2 (09:03→21:00)
[2019-04-19] MEDS: HYDROGEN PEROXIDE 3% 118 ML BOTTLE TP SCH ×2 (09:56→21:28)
[2019-04-19 14:00] VITALS: BP 111/64
[2019-04-19] MEDS: ACETAMINOPHEN 650 MG/20 ML UDC- SA PATIENTS-PAIN ONLY PEG SCH (16:59)
[2019-04-19 21:00] VITALS: BP 91/47
[2019-04-20] MEDS: TWOCAL HN 1,000 ML LIQUID PEG PRN (04:25)
[2019-04-20 05:17] VITALS: BP 98/52
[2019-04-20] MEDS: OMEPRAZOLE 20 MG CAPSULE.DR GT SCH (05:17)
[2019-04-20] MEDS: MIDODRINE 10 MG PEG SCH ×3 (05:17→21:04)
[2019-04-20 08:03] VITALS: BP 94/63
[2019-04-20] MEDS: Z GUARD REMEDY PASTE 57 GM TUBE TOP SCH ×2 (08:59→20:56)
[2019-04-20] MEDS: PROTEIN SUPPLEMENT (PROSTAT) 30 ML LIQUID PEG SCH ×2 (08:59→20:55)
[2019-04-20] MEDS: FERROUS SULFATE 330 MG/7.5 ML UDC- FOR SA ONLY GT SCH ×2 (08:59→20:55)
[2019-04-20] MEDS: TIZANIDINE HCL 4 MG TABLET PEG SCH ×2 (08:59→17:49)
[2019-04-20] MEDS: NUTRISOURCE FIBER 4 GM PACKET PEG SCH ×2 (08:59→20:55)
[2019-04-20] MEDS: HYDROGEN PEROXIDE 3% 118 ML BOTTLE TP SCH ×2 (09:00→20:56)
[2019-04-20 13:09] VITALS: BP 117/70
[2019-04-20] MEDS: ACETAMINOPHEN 650 MG/20 ML UDC- SA PATIENTS-PAIN ONLY PEG SCH (17:49)
[2019-04-20 23:00] VITALS: BP 105/51
[2019-04-21] MEDS: MIDODRINE 10 MG PEG SCH ×3 (05:05→22:04)
[2019-04-21] MEDS: OMEPRAZOLE 20 MG CAPSULE.DR GT SCH (05:05)
[2019-04-21] MEDS: MULTIVIT, IRON, MIN NO. 8, FA TABLET GT SCH (05:42)
[2019-04-21 08:00] VITALS: BP 99/57
[2019-04-21] MEDS: HYDROGEN PEROXIDE 3% 118 ML BOTTLE TP SCH ×2 (09:00→21:09)
[2019-04-21] MEDS: FERROUS SULFATE 330 MG/7.5 ML UDC- FOR SA ONLY GT SCH ×2 (09:15→21:00)
[2019-04-21] MEDS: PROTEIN SUPPLEMENT (PROSTAT) 30 ML LIQUID PEG SCH ×2 (09:16→21:00)
[2019-04-21] MEDS: NUTRISOURCE FIBER 4 GM PACKET PEG SCH ×2 (09:16→21:00)
[2019-04-21] MEDS: Z GUARD REMEDY PASTE 57 GM TUBE TOP SCH ×2 (09:16→21:00)
[2019-04-21] MEDS: TIZANIDINE HCL 4 MG TABLET PEG SCH ×2 (09:16→17:34)
[2019-04-21 14:12] VITALS: BP 98/64
[2019-04-21] MEDS: ACETAMINOPHEN 650 MG/20 ML UDC- SA PATIENTS-PAIN ONLY PEG SCH (17:34)
[2019-04-21 19:49] VITALS: BP 94/51
--- NOTE | 2019-04-21 20:00 | NUR ---
VSS 98.4-72-18 BP 99/57. SATS 100%. COLOR GOOD. PATIENT IS NONVERBAL WITH EYES OPEN. BOBBILEY #4 TRACHED TO 28% TRACH MIST MASK. SKIN WARM, DRY, AND INTACT. NO CPR. ABDOMEN SOFTLY DISTENDED WITH +BOWEL SOUNDS. G TUBE INTACT AND PATENT FOR TWACOMA 2.0 @ 25 CC/HOUR--[id number]--MHVUIDC CONTINUES WITHOUT INTERRUPTION. INCONTINENT OF BOWEL AND BLADDER. NO SIGNS OF ACUTE CARDIAC/RESPIRATORY DISTRESS OR SUPPRESSION.
[2019-04-22] MEDS: MIDODRINE 10 MG PEG SCH ×3 (06:32→21:58)
[2019-04-22] MEDS: OMEPRAZOLE 20 MG CAPSULE.DR GT SCH (06:32)
[2019-04-22 08:00] VITALS: BP 113/68
[2019-04-22] MEDS: Z GUARD REMEDY PASTE 57 GM TUBE TOP SCH ×2 (09:00→21:58)
[2019-04-22] MEDS: NUTRISOURCE FIBER 4 GM PACKET PEG SCH ×2 (09:00→21:58)
[2019-04-22] MEDS: FERROUS SULFATE 330 MG/7.5 ML UDC- FOR SA ONLY GT SCH ×2 (09:00→21:58)
[2019-04-22] MEDS: HYDROGEN PEROXIDE 3% 118 ML BOTTLE TP SCH ×2 (09:00→21:29)
[2019-04-22] MEDS: TIZANIDINE HCL 4 MG TABLET PEG SCH ×2 (09:00→16:26)
[2019-04-22] MEDS: PROTEIN SUPPLEMENT (PROSTAT) 30 ML LIQUID PEG SCH ×2 (09:00→21:58)
--- NOTE | 2019-04-22 15:33 | NUR ---
JEY met with patient's mother Morena today. JEY and Morena further discussed Morena's plan to move, and in turn Morena's plan to move patient to a subacute facility closer to where Morena moves ([facility]). JEY provided Morena with a list of [facility] Subacute Providers for the entire [facility], highlighting the ones that are located in [facility]: 1) [facility], [address] [place] 2) [facility], [address] [place] 3) [facility], [address] [place] 4) [facility], [address] 5) [facility], [address] [place] 6) [facility], [address] A copy of the above list was filed in patient's file in this SW's office. Morena stated that she was looking at the month of June as a possible time frame of when she would want to try and move patient to another facility. JEY informed patient's mother to visit the facilities before making any decision to transfer the patient in order to make sure she is able to choose the facility of her liking, and Morena expressed understanding and agreement.
[2019-04-22] MEDS: ACETAMINOPHEN 650 MG/20 ML UDC- SA PATIENTS-PAIN ONLY PEG SCH (16:26)
[2019-04-22 22:53] VITALS: BP 109/64
[2019-04-23] MEDS: MIDODRINE 10 MG PEG SCH ×3 (05:31→21:41)
[2019-04-23] MEDS: OMEPRAZOLE 20 MG CAPSULE.DR GT SCH (05:31)
[2019-04-23] MEDS: MULTIVIT, IRON, MIN NO. 8, FA TABLET GT SCH (05:31)
[2019-04-23 05:32] VITALS: BP 98/65
[2019-04-23 08:00] VITALS: BP 120/65
[2019-04-23] MEDS: HYDROGEN PEROXIDE 3% 118 ML BOTTLE TP SCH ×2 (08:01→20:54)
[2019-04-23] MEDS: NUTRISOURCE FIBER 4 GM PACKET PEG SCH ×2 (09:01→21:41)
[2019-04-23] MEDS: PROTEIN SUPPLEMENT (PROSTAT) 30 ML LIQUID PEG SCH ×2 (09:01→21:41)
[2019-04-23] MEDS: TIZANIDINE HCL 4 MG TABLET PEG SCH ×2 (09:01→16:21)
[2019-04-23] MEDS: FERROUS SULFATE 330 MG/7.5 ML UDC- FOR SA ONLY GT SCH ×2 (09:01→21:41)
[2019-04-23] MEDS: Z GUARD REMEDY PASTE 57 GM TUBE TOP SCH ×2 (09:02→21:41)
[2019-04-23] MEDS: ACETAMINOPHEN 650 MG/20 ML UDC- SA PATIENTS-PAIN ONLY PEG SCH (16:21)
[2019-04-23 20:05] VITALS: BP 90/55
[2019-04-24 05:14] VITALS: BP 106/57
[2019-04-24] MEDS: TWOCAL HN 1,000 ML LIQUID PEG PRN (05:22)
[2019-04-24] MEDS: OMEPRAZOLE 20 MG CAPSULE.DR GT SCH (06:07)
[2019-04-24] MEDS: MIDODRINE 10 MG PEG SCH ×3 (06:07→21:25)
[2019-04-24] MEDS: DOCUSATE SODIUM 100 MG/10 ML LIQUID UDC GT PRN (06:31)
[2019-04-24 08:00] VITALS: BP 117/60
[2019-04-24] MEDS: HYDROGEN PEROXIDE 3% 118 ML BOTTLE TP SCH ×2 (09:00→21:33)
[2019-04-24] MEDS: FERROUS SULFATE 330 MG/7.5 ML UDC- FOR SA ONLY GT SCH ×2 (09:11→21:25)
[2019-04-24] MEDS: PROTEIN SUPPLEMENT (PROSTAT) 30 ML LIQUID PEG SCH ×2 (09:12→21:25)
[2019-04-24] MEDS: TIZANIDINE HCL 4 MG TABLET PEG SCH ×2 (09:12→16:15)
[2019-04-24] MEDS: NUTRISOURCE FIBER 4 GM PACKET PEG SCH ×2 (09:12→21:25)
[2019-04-24] MEDS: Z GUARD REMEDY PASTE 57 GM TUBE TOP SCH ×2 (09:12→21:25)
[2019-04-24 14:25] VITALS: BP 93/51
[2019-04-24] MEDS: ACETAMINOPHEN 650 MG/20 ML UDC- SA PATIENTS-PAIN ONLY PEG SCH (16:14)
[2019-04-24 20:26] VITALS: BP 102/53
[2019-04-25 05:32] VITALS: BP 102/78
[2019-04-25] MEDS: OMEPRAZOLE 20 MG CAPSULE.DR GT SCH (06:00)
[2019-04-25] MEDS: MULTIVIT, IRON, MIN NO. 8, FA TABLET GT SCH (06:00)
[2019-04-25] MEDS: MIDODRINE 10 MG PEG SCH ×3 (06:00→21:21)
[2019-04-25] MEDS: Z GUARD REMEDY PASTE 57 GM TUBE TOP SCH ×2 (08:27→21:21)
[2019-04-25] MEDS: NUTRISOURCE FIBER 4 GM PACKET PEG SCH ×2 (08:27→21:21)
[2019-04-25] MEDS: FERROUS SULFATE 330 MG/7.5 ML UDC- FOR SA ONLY GT SCH ×2 (08:27→21:21)
[2019-04-25] MEDS: PROTEIN SUPPLEMENT (PROSTAT) 30 ML LIQUID PEG SCH ×2 (08:27→21:21)
[2019-04-25] MEDS: TIZANIDINE HCL 4 MG TABLET PEG SCH ×2 (08:27→17:36)
[2019-04-25] MEDS: TRIAMCINOLONE ACET 0.1% OINT 15 GM TUBE TP PRN (08:28)
[2019-04-25] MEDS: POLYVINYL ALCOHOL OPHT DROPS 15 ML BOTTLE EACHEYE PRN (08:29)
[2019-04-25] MEDS: HYDROGEN PEROXIDE 3% 118 ML BOTTLE TP SCH ×2 (09:06→20:31)
[2019-04-25 14:14] VITALS: BP 97/56
[2019-04-25] MEDS: ACETAMINOPHEN 650 MG/20 ML UDC- SA PATIENTS-PAIN ONLY PEG SCH (17:36)
[2019-04-25 20:57] VITALS: BP 112/53
--- NOTE | 2019-04-25 21:22 | NUR ---
2200 MIDODRINE 10MG TABLET NOT GIVEN ORDERED DUE TO SBP GREATER THAN 110. BP IS 112/53, HR IS 83. NO S/S OF PAIN OR DISCOMFORT. NO FACIAL GRIMACING. WILL CONTINUE TO MONITOR.
[2019-04-25] MEDS: TWOCAL HN 1,000 ML LIQUID PEG PRN (21:51)
[2019-04-26] MEDS: MIDODRINE 10 MG PEG SCH ×3 (05:07→21:56)
[2019-04-26] MEDS: OMEPRAZOLE 20 MG CAPSULE.DR GT SCH (05:07)
[2019-04-26 08:30] VITALS: BP 111/62
[2019-04-26] MEDS: HYDROGEN PEROXIDE 3% 118 ML BOTTLE TP SCH ×2 (09:00→21:00)
[2019-04-26] MEDS: PROTEIN SUPPLEMENT (PROSTAT) 30 ML LIQUID PEG SCH ×2 (09:05→20:11)
[2019-04-26] MEDS: Z GUARD REMEDY PASTE 57 GM TUBE TOP SCH ×2 (09:05→20:11)
[2019-04-26] MEDS: NUTRISOURCE FIBER 4 GM PACKET PEG SCH ×2 (09:05→20:11)
[2019-04-26] MEDS: FERROUS SULFATE 330 MG/7.5 ML UDC- FOR SA ONLY GT SCH ×2 (09:05→20:11)
[2019-04-26] MEDS: TIZANIDINE HCL 4 MG TABLET PEG SCH ×2 (09:05→16:14)
[2019-04-26] MEDS: ACETAMINOPHEN 650 MG/20 ML UDC- SA PATIENTS-PAIN ONLY PEG SCH (16:14)
[2019-04-26] MEDS: TRIAMCINOLONE ACET 0.1% OINT 15 GM TUBE TP PRN (16:14)
[2019-04-26] MEDS: POLYVINYL ALCOHOL OPHT DROPS 15 ML BOTTLE EACHEYE PRN (16:14)
[2019-04-26 19:59] VITALS: BP 110/57
[2019-04-27] MEDS: OMEPRAZOLE 20 MG CAPSULE.DR GT SCH (05:44)
[2019-04-27] MEDS: MIDODRINE 10 MG PEG SCH ×3 (05:44→21:17)
[2019-04-27] MEDS: MULTIVIT, IRON, MIN NO. 8, FA TABLET GT SCH (05:46)
[2019-04-27] MEDS: DOCUSATE SODIUM 100 MG/10 ML LIQUID UDC GT PRN (06:27)
[2019-04-27 08:00] VITALS: BP 104/62
[2019-04-27] MEDS: HYDROGEN PEROXIDE 3% 118 ML BOTTLE TP SCH ×2 (08:03→20:50)
[2019-04-27] MEDS: PROTEIN SUPPLEMENT (PROSTAT) 30 ML LIQUID PEG SCH ×2 (08:32→20:06)
[2019-04-27] MEDS: FERROUS SULFATE 330 MG/7.5 ML UDC- FOR SA ONLY GT SCH ×2 (08:32→20:06)
[2019-04-27] MEDS: NUTRISOURCE FIBER 4 GM PACKET PEG SCH ×2 (08:32→20:06)
[2019-04-27] MEDS: Z GUARD REMEDY PASTE 57 GM TUBE TOP SCH ×2 (08:32→20:07)
[2019-04-27] MEDS: TIZANIDINE HCL 4 MG TABLET PEG SCH ×2 (08:32→16:42)
[2019-04-27] MEDS: ACETAMINOPHEN 650 MG/20 ML UDC- SA PATIENTS-PAIN ONLY PEG SCH (16:42)
[2019-04-27 19:41] VITALS: BP 98/54
[2019-04-28] MEDS: OMEPRAZOLE 20 MG CAPSULE.DR GT SCH (05:19)
[2019-04-28] MEDS: MIDODRINE 10 MG PEG SCH ×3 (05:19→22:21)
[2019-04-28 08:00] VITALS: BP 110/65
[2019-04-28] MEDS: TIZANIDINE HCL 4 MG TABLET PEG SCH ×2 (08:57→17:51)
[2019-04-28] MEDS: NUTRISOURCE FIBER 4 GM PACKET PEG SCH ×2 (08:57→21:00)
[2019-04-28] MEDS: FERROUS SULFATE 330 MG/7.5 ML UDC- FOR SA ONLY GT SCH ×2 (08:57→21:00)
[2019-04-28] MEDS: Z GUARD REMEDY PASTE 57 GM TUBE TOP SCH ×2 (08:57→21:00)
[2019-04-28] MEDS: PROTEIN SUPPLEMENT (PROSTAT) 30 ML LIQUID PEG SCH ×2 (08:57→21:00)
[2019-04-28] MEDS: HYDROGEN PEROXIDE 3% 118 ML BOTTLE TP SCH ×2 (09:59→21:09)
--- NOTE | 2019-04-28 14:02 | NUR ---
SW notified patient's mother Morena via email that the next IDT meeting for the patient has been scheduled for 05/06/2019 at 11am.
[2019-04-28] MEDS: ACETAMINOPHEN 650 MG/20 ML UDC- SA PATIENTS-PAIN ONLY PEG SCH (17:51)
[2019-04-28 20:02] VITALS: BP 93/53
[2019-04-29 06:19] VITALS: BP 103/62
[2019-04-29] MEDS: MULTIVIT, IRON, MIN NO. 8, FA TABLET GT SCH (06:19)
[2019-04-29] MEDS: MIDODRINE 10 MG PEG SCH ×3 (06:19→21:28)
[2019-04-29] MEDS: OMEPRAZOLE 20 MG CAPSULE.DR GT SCH (06:19)
[2019-04-29] MEDS: DOCUSATE SODIUM 100 MG/10 ML LIQUID UDC GT PRN (06:40)
[2019-04-29 08:00] VITALS: BP 111/51
--- NOTE | 2019-04-29 08:20 | NUR ---
New orders noted for dulcolax 10 mg supp per rectum daily prn for constipation.
[2019-04-29] MEDS: HYDROGEN PEROXIDE 3% 118 ML BOTTLE TP SCH ×2 (09:00→20:42)
[2019-04-29] MEDS: Z GUARD REMEDY PASTE 57 GM TUBE TOP SCH ×2 (09:14→20:12)
[2019-04-29] MEDS: NUTRISOURCE FIBER 4 GM PACKET PEG SCH ×2 (09:14→20:12)
[2019-04-29] MEDS: TIZANIDINE HCL 4 MG TABLET PEG SCH ×2 (09:14→16:11)
[2019-04-29] MEDS: FERROUS SULFATE 330 MG/7.5 ML UDC- FOR SA ONLY GT SCH ×2 (09:14→20:12)
[2019-04-29] MEDS: PROTEIN SUPPLEMENT (PROSTAT) 30 ML LIQUID PEG SCH ×2 (09:14→20:12)
[2019-04-29] MEDS: BISACODYL 10 MG SUPP.RECT RC PRN (09:15)
[2019-04-29 13:40] VITALS: BP 93/58
[2019-04-29] MEDS: TWOCAL HN 1,000 ML LIQUID PEG PRN (16:11)
[2019-04-29] MEDS: ACETAMINOPHEN 650 MG/20 ML UDC- SA PATIENTS-PAIN ONLY PEG SCH (16:12)
[2019-04-29 19:37] VITALS: BP 112/53
[2019-04-30] MEDS: OMEPRAZOLE 20 MG CAPSULE.DR GT SCH (05:22)
[2019-04-30] MEDS: MIDODRINE 10 MG PEG SCH ×3 (05:22→21:04)
[2019-04-30 08:00] VITALS: BP 93/55
[2019-04-30] MEDS: TIZANIDINE HCL 4 MG TABLET PEG SCH ×2 (08:21→16:37)
[2019-04-30] MEDS: Z GUARD REMEDY PASTE 57 GM TUBE TOP SCH ×2 (08:21→20:07)
[2019-04-30] MEDS: PROTEIN SUPPLEMENT (PROSTAT) 30 ML LIQUID PEG SCH ×2 (08:21→20:06)
[2019-04-30] MEDS: FERROUS SULFATE 330 MG/7.5 ML UDC- FOR SA ONLY GT SCH ×2 (08:21→20:06)
[2019-04-30] MEDS: NUTRISOURCE FIBER 4 GM PACKET PEG SCH ×2 (08:21→20:06)
[2019-04-30] MEDS: HYDROGEN PEROXIDE 3% 118 ML BOTTLE TP SCH ×2 (09:00→21:34)
[2019-04-30 13:51] VITALS: BP 98/60
[2019-04-30] MEDS: ACETAMINOPHEN 650 MG/20 ML UDC- SA PATIENTS-PAIN ONLY PEG SCH (16:38)
[2019-04-30 20:00] VITALS: BP 90/58
[2019-05-01] MEDS: OMEPRAZOLE 20 MG CAPSULE.DR GT SCH (05:20)
[2019-05-01] MEDS: MIDODRINE 10 MG PEG SCH ×3 (05:21→21:47)
[2019-05-01] MEDS: MULTIVIT, IRON, MIN NO. 8, FA TABLET GT SCH (05:36)
[2019-05-01 08:00] VITALS: BP 104/61
[2019-05-01] MEDS: FERROUS SULFATE 330 MG/7.5 ML UDC- FOR SA ONLY GT SCH ×2 (09:13→21:47)
[2019-05-01] MEDS: Z GUARD REMEDY PASTE 57 GM TUBE TOP SCH ×2 (09:14→21:47)
[2019-05-01] MEDS: TIZANIDINE HCL 4 MG TABLET PEG SCH ×2 (09:14→16:40)
[2019-05-01] MEDS: NUTRISOURCE FIBER 4 GM PACKET PEG SCH ×2 (09:14→21:47)
[2019-05-01] MEDS: PROTEIN SUPPLEMENT (PROSTAT) 30 ML LIQUID PEG SCH ×2 (09:14→21:47)
[2019-05-01] MEDS: HYDROGEN PEROXIDE 3% 118 ML BOTTLE TP SCH ×2 (09:40→21:06)
[2019-05-01 14:43] VITALS: BP 128/66
[2019-05-01] MEDS: ACETAMINOPHEN 650 MG/20 ML UDC- SA PATIENTS-PAIN ONLY PEG SCH (16:40)
[2019-05-01] MEDS: TWOCAL HN 1,000 ML LIQUID PEG PRN (17:55)
[2019-05-01 19:58] VITALS: BP 110/66
[2019-05-02] MEDS: MIDODRINE 10 MG PEG SCH ×3 (06:00→21:07)
[2019-05-02] MEDS: OMEPRAZOLE 20 MG CAPSULE.DR GT SCH (06:22)
[2019-05-02 06:23] VITALS: BP 112/58
[2019-05-02 08:05] VITALS: BP 116/57
[2019-05-02] MEDS: TIZANIDINE HCL 4 MG TABLET PEG SCH ×2 (08:14→16:08)
[2019-05-02] MEDS: FERROUS SULFATE 330 MG/7.5 ML UDC- FOR SA ONLY GT SCH ×2 (08:14→21:07)
[2019-05-02] MEDS: PROTEIN SUPPLEMENT (PROSTAT) 30 ML LIQUID PEG SCH ×2 (08:14→21:07)
[2019-05-02] MEDS: NUTRISOURCE FIBER 4 GM PACKET PEG SCH ×2 (08:14→21:07)
[2019-05-02] MEDS: Z GUARD REMEDY PASTE 57 GM TUBE TOP SCH ×2 (08:14→21:07)
[2019-05-02] MEDS: HYDROGEN PEROXIDE 3% 118 ML BOTTLE TP SCH ×2 (09:00→20:31)
[2019-05-02 11:30] VITALS: BP 116/57
[2019-05-02] MEDS: ACETAMINOPHEN 650 MG/20 ML UDC- SA PATIENTS-PAIN ONLY PEG SCH (16:08)
--- NOTE | 2019-05-02 16:54 | NUR ---
JEY met with patient's mother Morena, to follow-up on discharge planning. Morena stated that she has decided not to move the patient to a facility in [facility], and instead will continue to keep patient at [facility]. Morena asked this SW if discharge planning can be cancelled, and SW stated that she will notify clinic charge nurse to inform the patient's physician about cancelling discharge planning. Morena expressed agreement and thanked this SW. JEY met with clinic charge nurse Ernie, and informed him that patient's mother has decided against moving patient to another facility and asked Ernie if he can notify the patient's physician about the cancellation in discharge. Ernie expressed agreement. JEY also met with Metal Filer Pj Artis and informed him of above.
[2019-05-02 19:51] VITALS: BP 117/73
[2019-05-03] MEDS: MIDODRINE 10 MG PEG SCH ×3 (05:01→21:03)
[2019-05-03] MEDS: OMEPRAZOLE 20 MG CAPSULE.DR GT SCH (05:01)
[2019-05-03] MEDS: MULTIVIT, IRON, MIN NO. 8, FA TABLET GT SCH (05:37)
[2019-05-03 08:00] VITALS: BP 110/64
[2019-05-03] MEDS: Z GUARD REMEDY PASTE 57 GM TUBE TOP SCH ×2 (08:42→21:03)
[2019-05-03] MEDS: TIZANIDINE HCL 4 MG TABLET PEG SCH ×2 (08:42→16:03)
[2019-05-03] MEDS: NUTRISOURCE FIBER 4 GM PACKET PEG SCH ×2 (08:42→21:03)
[2019-05-03] MEDS: PROTEIN SUPPLEMENT (PROSTAT) 30 ML LIQUID PEG SCH ×2 (08:42→21:03)
[2019-05-03] MEDS: FERROUS SULFATE 330 MG/7.5 ML UDC- FOR SA ONLY GT SCH ×2 (08:42→21:03)
[2019-05-03] MEDS: HYDROGEN PEROXIDE 3% 118 ML BOTTLE TP SCH ×2 (09:00→21:35)
[2019-05-03 13:28] VITALS: BP 122/70
[2019-05-03] MEDS: TWOCAL HN 1,000 ML LIQUID PEG PRN (14:56)
[2019-05-03] MEDS: ACETAMINOPHEN 650 MG/20 ML UDC- SA PATIENTS-PAIN ONLY PEG SCH (16:03)
[2019-05-03 20:51] VITALS: BP 123/66
[2019-05-04] MEDS: OMEPRAZOLE 20 MG CAPSULE.DR GT SCH (05:03)
[2019-05-04] MEDS: MIDODRINE 10 MG PEG SCH ×3 (05:04→21:12)
[2019-05-04 08:04] VITALS: BP 98/62
[2019-05-04] MEDS: NUTRISOURCE FIBER 4 GM PACKET PEG SCH ×2 (08:50→21:11)
[2019-05-04] MEDS: FERROUS SULFATE 330 MG/7.5 ML UDC- FOR SA ONLY GT SCH ×2 (08:50→21:11)
[2019-05-04] MEDS: PROTEIN SUPPLEMENT (PROSTAT) 30 ML LIQUID PEG SCH ×2 (08:50→21:11)
[2019-05-04] MEDS: TIZANIDINE HCL 4 MG TABLET PEG SCH ×2 (08:50→16:15)
[2019-05-04] MEDS: Z GUARD REMEDY PASTE 57 GM TUBE TOP SCH ×2 (08:50→21:12)
[2019-05-04] MEDS: HYDROGEN PEROXIDE 3% 118 ML BOTTLE TP SCH ×2 (09:00→20:30)
[2019-05-04 14:00] VITALS: BP 104/56
[2019-05-04] MEDS: ACETAMINOPHEN 650 MG/20 ML UDC- SA PATIENTS-PAIN ONLY PEG SCH (16:15)
[2019-05-04 20:20] VITALS: BP 100/60
[2019-05-05] MEDS: TWOCAL HN 1,000 ML LIQUID PEG PRN (03:48)
[2019-05-05] MEDS: MIDODRINE 10 MG PEG SCH ×3 (05:06→21:22)
[2019-05-05] MEDS: OMEPRAZOLE 20 MG CAPSULE.DR GT SCH (05:06)
[2019-05-05] MEDS: MULTIVIT, IRON, MIN NO. 8, FA TABLET GT SCH (06:03)
--- NOTE | 2019-05-05 07:45 | NUR ---
Seen by Doris PARMAR, notified mother's patient decided not to continue with discharge planning, order given to d/c discharge planning.
[2019-05-05 08:04] VITALS: BP 108/59
[2019-05-05] MEDS: HYDROGEN PEROXIDE 3% 118 ML BOTTLE TP SCH ×2 (08:10→21:00)
[2019-05-05] MEDS: FERROUS SULFATE 330 MG/7.5 ML UDC- FOR SA ONLY GT SCH ×2 (08:35→21:22)
[2019-05-05] MEDS: TIZANIDINE HCL 4 MG TABLET PEG SCH ×2 (08:36→17:08)
[2019-05-05] MEDS: PROTEIN SUPPLEMENT (PROSTAT) 30 ML LIQUID PEG SCH ×2 (08:36→21:22)
[2019-05-05] MEDS: Z GUARD REMEDY PASTE 57 GM TUBE TOP SCH ×2 (08:36→21:22)
[2019-05-05] MEDS: NUTRISOURCE FIBER 4 GM PACKET PEG SCH ×2 (08:36→21:22)
[2019-05-05 14:50] VITALS: BP 106/67
[2019-05-05] MEDS: diphenhydrAMINE 25 MG/10 ML UDC GT PRN (16:00)
--- NOTE | 2019-05-05 16:51 | NUR ---
Rashes noted, after cream bought by Mother was applied, Dr. Alarcon notified, Benadryl 25mg pgt q6hrs prn ordered, will continue monitoring.
[2019-05-05] MEDS: ACETAMINOPHEN 650 MG/20 ML UDC- SA PATIENTS-PAIN ONLY PEG SCH (17:08)
[2019-05-05] MEDS: TRIAMCINOLONE ACET 0.1% OINT 15 GM TUBE TP PRN (17:09)
[2019-05-05 21:13] VITALS: BP 117/71
[2019-05-06] MEDS: MIDODRINE 10 MG PEG SCH ×3 (05:11→21:45)
[2019-05-06] MEDS: OMEPRAZOLE 20 MG CAPSULE.DR GT SCH (05:11)
[2019-05-06 08:05] VITALS: BP 113/65
[2019-05-06] MEDS: diphenhydrAMINE 25 MG/10 ML UDC GT PRN ×3 (08:31→20:00)
[2019-05-06] MEDS: PROTEIN SUPPLEMENT (PROSTAT) 30 ML LIQUID PEG SCH ×2 (08:31→21:43)
[2019-05-06] MEDS: TIZANIDINE HCL 4 MG TABLET PEG SCH ×2 (08:31→16:23)
[2019-05-06] MEDS: FERROUS SULFATE 330 MG/7.5 ML UDC- FOR SA ONLY GT SCH ×2 (08:31→21:43)
[2019-05-06] MEDS: NUTRISOURCE FIBER 4 GM PACKET PEG SCH ×2 (08:31→21:43)
[2019-05-06] MEDS: Z GUARD REMEDY PASTE 57 GM TUBE TOP SCH ×2 (08:32→21:44)
[2019-05-06] MEDS: HYDROGEN PEROXIDE 3% 118 ML BOTTLE TP SCH ×2 (09:44→21:10)
--- NOTE | 2019-05-06 10:10 | NUR ---
patient continues with rashes on face and neck, Benadryl given as ordered, mother aware, will continued monitoring.
[2019-05-06 13:40] VITALS: BP 101/70
[2019-05-06] MEDS: TRIAMCINOLONE ACET 0.1% OINT 15 GM TUBE TP PRN (14:05)
--- NOTE | 2019-05-06 14:27 | NUR ---
Pharmacy Update from Today's 05/06/19 IDT Meeting VS: Temp 97.7 BP 117/71 HR 78 LABS: (from 09/13/18, no new labs) Wbc 8.5 H/H 13/39.5 Plt 226 Na 137 K 3.9 Cl 102 CO2 27 BUN/SCr 12/0.5 BS 90 Ca 8.7 phos 3.3 Mg 2.1 MEDICATION USE REVIEWED: > Pt not on any anti-epileptic or anti-psych medications > Pt on Midodrine 10mg q8hr ATC with parameters for hold SBP >110 > PRN MED USAGE: (Mar) Tylenol for pain used x 0 Tylenol for temp used x 0 Artificial tears used x 4 Docusate PRN x1 Bisacodyl PRN used x 1 (added 04/29) Benadryl PRN used x 1 (added 05/05) NEW ORDERS NOTED: > Benadryl 25mg PRN added 05/05. Pt noted with mild facial rash after being OOP with mother. Per mother, she applied moisterizer which may have caused rash. Currently resolving Patient reviewed and discussed at IDT with no medication issues at this time, remains stable on current medications. Rx inquired on mother's moisterizing product and rec'd for f/u with mother not to apply own products without first asking staff/pharmacy. Although not medicated, derm sensitivity reactions still may occur. Team in agreement, aware and follows as well. Benadryl effective per RNs. Will monitor
--- NOTE | 2019-05-06 14:59 | NUR ---
INTERDISCIPLINARY PLAN OF CARE CONFERENCE was held today. Patient's mother Morena was unable to attend the meeting. Dr. Caraballo and the Interdisciplinary Team reviewed the current plan of care in detail. RN reported on patient's current medical condition and treatment for facial rashes. No major changes were reported in patient's condition. See RN IDT conference notes. SW reported that patient's mother's has changed her mind with wanting to transfer patient to a subacute facility in the [place] area, therefore DC planning orders have been cancelled at this time. See all disciplines IDT notes and physician's progress notes for additional details.
[2019-05-06] MEDS: ACETAMINOPHEN 650 MG/20 ML UDC- SA PATIENTS-PAIN ONLY PEG SCH (16:23)
[2019-05-06 20:19] VITALS: BP 116/67
[2019-05-07] MEDS: diphenhydrAMINE 25 MG/10 ML UDC GT PRN ×2 (03:30→10:30)
[2019-05-07] MEDS: OMEPRAZOLE 20 MG CAPSULE.DR GT SCH (05:30)
[2019-05-07] MEDS: MIDODRINE 10 MG PEG SCH ×3 (05:33→22:23)
[2019-05-07] MEDS: MULTIVIT, IRON, MIN NO. 8, FA TABLET GT SCH (05:33)
[2019-05-07 08:05] VITALS: BP 110/62
[2019-05-07] MEDS: TRIAMCINOLONE ACET 0.1% OINT 15 GM TUBE TP PRN (08:19)
[2019-05-07] MEDS: TIZANIDINE HCL 4 MG TABLET PEG SCH ×2 (08:19→16:48)
[2019-05-07] MEDS: FERROUS SULFATE 330 MG/7.5 ML UDC- FOR SA ONLY GT SCH ×2 (08:19→20:51)
[2019-05-07] MEDS: NUTRISOURCE FIBER 4 GM PACKET PEG SCH ×2 (08:19→20:52)
[2019-05-07] MEDS: Z GUARD REMEDY PASTE 57 GM TUBE TOP SCH ×2 (08:19→20:52)
[2019-05-07] MEDS: PROTEIN SUPPLEMENT (PROSTAT) 30 ML LIQUID PEG SCH ×2 (08:19→20:52)
[2019-05-07] MEDS: HYDROGEN PEROXIDE 3% 118 ML BOTTLE TP SCH ×2 (09:00→21:42)
[2019-05-07 14:05] VITALS: BP 107/60
[2019-05-07] MEDS: ACETAMINOPHEN 650 MG/20 ML UDC- SA PATIENTS-PAIN ONLY PEG SCH (16:48)
--- NOTE | 2019-05-07 18:00 | NUR ---
on close observation for rashes on face .
[2019-05-07 20:08] VITALS: BP 100/59
[2019-05-08] MEDS: MIDODRINE 10 MG PEG SCH ×3 (05:17→21:49)
[2019-05-08] MEDS: OMEPRAZOLE 20 MG CAPSULE.DR GT SCH (05:17)
[2019-05-08 08:06] VITALS: BP 98/60
[2019-05-08] MEDS: TIZANIDINE HCL 4 MG TABLET PEG SCH ×2 (08:17→17:04)
[2019-05-08] MEDS: FERROUS SULFATE 330 MG/7.5 ML UDC- FOR SA ONLY GT SCH ×2 (08:17→20:28)
[2019-05-08] MEDS: NUTRISOURCE FIBER 4 GM PACKET PEG SCH ×2 (08:17→20:28)
[2019-05-08] MEDS: PROTEIN SUPPLEMENT (PROSTAT) 30 ML LIQUID PEG SCH ×2 (08:17→20:28)
[2019-05-08] MEDS: Z GUARD REMEDY PASTE 57 GM TUBE TOP SCH ×2 (08:17→20:28)
[2019-05-08] MEDS: HYDROGEN PEROXIDE 3% 118 ML BOTTLE TP SCH ×2 (09:00→21:55)
[2019-05-08] MEDS: ACETAMINOPHEN 650 MG/20 ML UDC- SA PATIENTS-PAIN ONLY PEG SCH (17:04)
[2019-05-08 20:17] VITALS: BP 111/68
[2019-05-09] MEDS: TWOCAL HN 1,000 ML LIQUID PEG PRN (04:49)
[2019-05-09 05:07] VITALS: BP 102/65
[2019-05-09] MEDS: MIDODRINE 10 MG PEG SCH ×3 (05:07→21:37)
[2019-05-09] MEDS: OMEPRAZOLE 20 MG CAPSULE.DR GT SCH (05:07)
[2019-05-09] MEDS: MULTIVIT, IRON, MIN NO. 8, FA TABLET GT SCH (06:04)
[2019-05-09 08:06] VITALS: BP 103/66
[2019-05-09] MEDS: PROTEIN SUPPLEMENT (PROSTAT) 30 ML LIQUID PEG SCH ×2 (08:55→20:26)
[2019-05-09] MEDS: TIZANIDINE HCL 4 MG TABLET PEG SCH ×2 (08:55→17:09)
[2019-05-09] MEDS: NUTRISOURCE FIBER 4 GM PACKET PEG SCH ×2 (08:55→20:26)
[2019-05-09] MEDS: Z GUARD REMEDY PASTE 57 GM TUBE TOP SCH ×2 (08:55→20:26)
[2019-05-09] MEDS: FERROUS SULFATE 330 MG/7.5 ML UDC- FOR SA ONLY GT SCH ×2 (08:55→20:26)
[2019-05-09] MEDS: HYDROGEN PEROXIDE 3% 118 ML BOTTLE TP SCH ×2 (09:18→20:35)
[2019-05-09] MEDS: ACETAMINOPHEN 650 MG/20 ML UDC- SA PATIENTS-PAIN ONLY PEG SCH (17:09)
[2019-05-09 20:23] VITALS: BP 117/59
[2019-05-10 05:51] VITALS: BP 95/51
[2019-05-10] MEDS: MIDODRINE 10 MG PEG SCH ×3 (05:51→21:08)
[2019-05-10] MEDS: OMEPRAZOLE 20 MG CAPSULE.DR GT SCH (05:51)
[2019-05-10] MEDS: HYDROGEN PEROXIDE 3% 118 ML BOTTLE TP SCH ×2 (07:47→21:00)
[2019-05-10 08:02] VITALS: BP 111/64
[2019-05-10] MEDS: NUTRISOURCE FIBER 4 GM PACKET PEG SCH ×2 (08:40→20:29)
[2019-05-10] MEDS: FERROUS SULFATE 330 MG/7.5 ML UDC- FOR SA ONLY GT SCH ×2 (08:40→20:29)
[2019-05-10] MEDS: PROTEIN SUPPLEMENT (PROSTAT) 30 ML LIQUID PEG SCH ×2 (08:40→20:29)
[2019-05-10] MEDS: Z GUARD REMEDY PASTE 57 GM TUBE TOP SCH ×2 (08:42→20:29)
[2019-05-10] MEDS: TIZANIDINE HCL 4 MG TABLET PEG SCH ×2 (08:42→17:20)
[2019-05-10] MEDS: ACETAMINOPHEN 650 MG/20 ML UDC- SA PATIENTS-PAIN ONLY PEG SCH (17:20)
[2019-05-10 20:19] VITALS: BP 108/66
[2019-05-10] MEDS: TWOCAL HN 1,000 ML LIQUID PEG PRN (20:32)
[2019-05-11 05:07] VITALS: BP 103/63
[2019-05-11] MEDS: OMEPRAZOLE 20 MG CAPSULE.DR GT SCH (05:07)
[2019-05-11] MEDS: MIDODRINE 10 MG PEG SCH ×3 (05:07→22:00)
[2019-05-11] MEDS: MULTIVIT, IRON, MIN NO. 8, FA TABLET GT SCH (05:33)
[2019-05-11 08:00] VITALS: BP 99/63
[2019-05-11] MEDS: FERROUS SULFATE 330 MG/7.5 ML UDC- FOR SA ONLY GT SCH ×2 (09:10→20:43)
[2019-05-11] MEDS: PROTEIN SUPPLEMENT (PROSTAT) 30 ML LIQUID PEG SCH ×2 (09:10→20:43)
[2019-05-11] MEDS: NUTRISOURCE FIBER 4 GM PACKET PEG SCH ×2 (09:10→20:43)
[2019-05-11] MEDS: Z GUARD REMEDY PASTE 57 GM TUBE TOP SCH ×2 (09:11→20:43)
[2019-05-11] MEDS: TIZANIDINE HCL 4 MG TABLET PEG SCH ×2 (09:11→16:42)
[2019-05-11] MEDS: HYDROGEN PEROXIDE 3% 118 ML BOTTLE TP SCH ×2 (09:45→21:23)
--- NOTE | 2019-05-11 12:00 | NUR ---
SEEN BY YADIEL Prieto AND WITH DIONISIOO.
[2019-05-11] MEDS: ACETAMINOPHEN 650 MG/20 ML UDC- SA PATIENTS-PAIN ONLY PEG SCH (16:41)
[2019-05-11 20:34] VITALS: BP 123/71
[2019-05-12] MEDS: OMEPRAZOLE 20 MG CAPSULE.DR GT SCH (05:15)
[2019-05-12] MEDS: MIDODRINE 10 MG PEG SCH ×3 (05:16→21:08)
[2019-05-12 08:00] VITALS: BP 118/70
--- NOTE | 2019-05-12 08:34 | NUR ---
SEEN AND EXAMINED BY LORENZO Jones AND WITH DIONISIOO.
[2019-05-12] MEDS: HYDROGEN PEROXIDE 3% 118 ML BOTTLE TP SCH ×2 (09:00→21:09)
[2019-05-12] MEDS: NUTRISOURCE FIBER 4 GM PACKET PEG SCH ×2 (09:09→21:08)
[2019-05-12] MEDS: TIZANIDINE HCL 4 MG TABLET PEG SCH ×2 (09:09→17:11)
[2019-05-12] MEDS: PROTEIN SUPPLEMENT (PROSTAT) 30 ML LIQUID PEG SCH ×2 (09:09→21:08)
[2019-05-12] MEDS: FERROUS SULFATE 330 MG/7.5 ML UDC- FOR SA ONLY GT SCH ×2 (09:09→21:08)
[2019-05-12] MEDS: Z GUARD REMEDY PASTE 57 GM TUBE TOP SCH ×2 (09:10→21:08)
[2019-05-12] MEDS: ACETAMINOPHEN 650 MG/20 ML UDC- SA PATIENTS-PAIN ONLY PEG SCH (17:11)
[2019-05-12] MEDS: TWOCAL HN 1,000 ML LIQUID PEG PRN (18:06)
[2019-05-12 20:45] VITALS: BP 109/50
[2019-05-13] MEDS: OMEPRAZOLE 20 MG CAPSULE.DR GT SCH (05:35)
[2019-05-13] MEDS: MIDODRINE 10 MG PEG SCH ×3 (05:35→21:48)
[2019-05-13] MEDS: MULTIVIT, IRON, MIN NO. 8, FA TABLET GT SCH (05:36)
[2019-05-13 08:00] VITALS: BP 106/65
[2019-05-13] MEDS: NUTRISOURCE FIBER 4 GM PACKET PEG SCH ×2 (08:32→21:47)
[2019-05-13] MEDS: TIZANIDINE HCL 4 MG TABLET PEG SCH ×2 (08:32→17:11)
[2019-05-13] MEDS: FERROUS SULFATE 330 MG/7.5 ML UDC- FOR SA ONLY GT SCH ×2 (08:32→21:47)
[2019-05-13] MEDS: PROTEIN SUPPLEMENT (PROSTAT) 30 ML LIQUID PEG SCH ×2 (08:32→21:47)
[2019-05-13] MEDS: Z GUARD REMEDY PASTE 57 GM TUBE TOP SCH ×2 (08:33→21:47)
[2019-05-13] MEDS: HYDROGEN PEROXIDE 3% 118 ML BOTTLE TP SCH ×2 (09:00→21:04)
[2019-05-13] MEDS: ACETAMINOPHEN 650 MG/20 ML UDC- SA PATIENTS-PAIN ONLY PEG SCH (17:11)
[2019-05-13 20:17] VITALS: BP 116/59
[2019-05-14] MEDS: MIDODRINE 10 MG PEG SCH ×3 (05:28→21:21)
[2019-05-14] MEDS: OMEPRAZOLE 20 MG CAPSULE.DR GT SCH (05:28)
[2019-05-14 08:00] VITALS: BP 120/63
[2019-05-14] MEDS: FERROUS SULFATE 330 MG/7.5 ML UDC- FOR SA ONLY GT SCH ×2 (08:41→21:20)
[2019-05-14] MEDS: NUTRISOURCE FIBER 4 GM PACKET PEG SCH ×2 (08:42→21:20)
[2019-05-14] MEDS: TIZANIDINE HCL 4 MG TABLET PEG SCH ×2 (08:42→16:45)
[2019-05-14] MEDS: PROTEIN SUPPLEMENT (PROSTAT) 30 ML LIQUID PEG SCH ×2 (08:42→21:20)
[2019-05-14] MEDS: Z GUARD REMEDY PASTE 57 GM TUBE TOP SCH ×2 (08:42→21:20)
[2019-05-14] MEDS: HYDROGEN PEROXIDE 3% 118 ML BOTTLE TP SCH ×2 (09:51→20:51)
[2019-05-14] MEDS: TWOCAL HN 1,000 ML LIQUID PEG PRN (16:45)
[2019-05-14] MEDS: ACETAMINOPHEN 650 MG/20 ML UDC- SA PATIENTS-PAIN ONLY PEG SCH (16:45)
[2019-05-14 20:56] VITALS: BP 116/65
[2019-05-15 05:43] VITALS: BP 127/65
[2019-05-15] MEDS: OMEPRAZOLE 20 MG CAPSULE.DR GT SCH (05:44)
[2019-05-15] MEDS: MIDODRINE 10 MG PEG SCH ×3 (05:44→21:42)
[2019-05-15] MEDS: MULTIVIT, IRON, MIN NO. 8, FA TABLET GT SCH (05:45)
[2019-05-15 08:00] VITALS: BP 119/63
[2019-05-15] MEDS: HYDROGEN PEROXIDE 3% 118 ML BOTTLE TP SCH ×2 (09:06→21:50)
[2019-05-15] MEDS: PROTEIN SUPPLEMENT (PROSTAT) 30 ML LIQUID PEG SCH ×2 (09:20→21:41)
[2019-05-15] MEDS: NUTRISOURCE FIBER 4 GM PACKET PEG SCH ×2 (09:20→21:41)
[2019-05-15] MEDS: TIZANIDINE HCL 4 MG TABLET PEG SCH ×2 (09:20→17:17)
[2019-05-15] MEDS: Z GUARD REMEDY PASTE 57 GM TUBE TOP SCH ×2 (09:20→21:41)
[2019-05-15] MEDS: FERROUS SULFATE 330 MG/7.5 ML UDC- FOR SA ONLY GT SCH ×2 (09:20→21:41)
[2019-05-15] MEDS: ACETAMINOPHEN 650 MG/20 ML UDC- SA PATIENTS-PAIN ONLY PEG SCH (17:17)
[2019-05-15 20:33] VITALS: BP 118/74
[2019-05-16 05:44] VITALS: BP 106/53
[2019-05-16] MEDS: MIDODRINE 10 MG PEG SCH ×3 (05:54→21:20)
[2019-05-16] MEDS: OMEPRAZOLE 20 MG CAPSULE.DR GT SCH (05:54)
[2019-05-16] MEDS: TIZANIDINE HCL 4 MG TABLET PEG SCH ×2 (08:22→17:24)
[2019-05-16] MEDS: FERROUS SULFATE 330 MG/7.5 ML UDC- FOR SA ONLY GT SCH ×2 (08:22→20:28)
[2019-05-16] MEDS: NUTRISOURCE FIBER 4 GM PACKET PEG SCH ×2 (08:22→20:28)
[2019-05-16] MEDS: PROTEIN SUPPLEMENT (PROSTAT) 30 ML LIQUID PEG SCH ×2 (08:22→20:28)
[2019-05-16] MEDS: Z GUARD REMEDY PASTE 57 GM TUBE TOP SCH ×2 (08:23→20:28)
[2019-05-16] MEDS: HYDROGEN PEROXIDE 3% 118 ML BOTTLE TP SCH ×2 (09:00→21:23)
[2019-05-16 11:37] VITALS: BP 98/57
--- NOTE | 2019-05-16 16:38 | NUR ---
SW met with patient's mother Morena today and provided her with patient's annual [facility] Redetermination Form, which this SW received via mail earlier this week. The form is due back to [facility] by 06/27/2019. Morena stated she would complete the form. About 30 minutes later, Morena returned the completed form to this SW. SW will mail the completed form to [facility].
[2019-05-16] MEDS: ACETAMINOPHEN 650 MG/20 ML UDC- SA PATIENTS-PAIN ONLY PEG SCH (17:24)
[2019-05-16] MEDS: TWOCAL HN 1,000 ML LIQUID PEG PRN (17:24)
[2019-05-16 19:59] VITALS: BP 90/57
[2019-05-17] MEDS: OMEPRAZOLE 20 MG CAPSULE.DR GT SCH (05:37)
[2019-05-17] MEDS: MULTIVIT, IRON, MIN NO. 8, FA TABLET GT SCH (05:37)
[2019-05-17] MEDS: MIDODRINE 10 MG PEG SCH ×3 (05:37→21:10)
[2019-05-17] MEDS: HYDROGEN PEROXIDE 3% 118 ML BOTTLE TP SCH ×2 (08:27→21:00)
[2019-05-17] MEDS: Z GUARD REMEDY PASTE 57 GM TUBE TOP SCH ×2 (08:42→20:07)
[2019-05-17] MEDS: NUTRISOURCE FIBER 4 GM PACKET PEG SCH ×2 (08:42→20:07)
[2019-05-17] MEDS: TIZANIDINE HCL 4 MG TABLET PEG SCH ×2 (08:42→16:34)
[2019-05-17] MEDS: PROTEIN SUPPLEMENT (PROSTAT) 30 ML LIQUID PEG SCH ×2 (08:42→20:07)
[2019-05-17] MEDS: FERROUS SULFATE 330 MG/7.5 ML UDC- FOR SA ONLY GT SCH ×2 (08:42→20:07)
--- NOTE | 2019-05-17 11:00 | NUR ---
Seen by Dr. Wu, with no new orders.
[2019-05-17 11:40] VITALS: BP 101/55
[2019-05-17] MEDS: ACETAMINOPHEN 650 MG/20 ML UDC- SA PATIENTS-PAIN ONLY PEG SCH (16:34)
[2019-05-17 22:40] VITALS: BP 98/58
[2019-05-18] MEDS: MIDODRINE 10 MG PEG SCH ×3 (05:08→21:18)
[2019-05-18] MEDS: OMEPRAZOLE 20 MG CAPSULE.DR GT SCH (05:08)
[2019-05-18 08:09] VITALS: BP 104/65
[2019-05-18] MEDS: TIZANIDINE HCL 4 MG TABLET PEG SCH ×2 (09:20→17:10)
[2019-05-18] MEDS: Z GUARD REMEDY PASTE 57 GM TUBE TOP SCH ×2 (09:20→20:03)
[2019-05-18] MEDS: FERROUS SULFATE 330 MG/7.5 ML UDC- FOR SA ONLY GT SCH ×2 (09:20→20:03)
[2019-05-18] MEDS: PROTEIN SUPPLEMENT (PROSTAT) 30 ML LIQUID PEG SCH ×2 (09:20→20:03)
[2019-05-18] MEDS: NUTRISOURCE FIBER 4 GM PACKET PEG SCH ×2 (09:20→20:03)
[2019-05-18] MEDS: HYDROGEN PEROXIDE 3% 118 ML BOTTLE TP SCH ×2 (10:49→20:38)
[2019-05-18] MEDS: TWOCAL HN 1,000 ML LIQUID PEG PRN (15:55)
[2019-05-18] MEDS: ACETAMINOPHEN 650 MG/20 ML UDC- SA PATIENTS-PAIN ONLY PEG SCH (17:10)
[2019-05-18 22:27] VITALS: BP 92/51
[2019-05-19] MEDS: MIDODRINE 10 MG PEG SCH ×3 (05:41→21:49)
[2019-05-19] MEDS: OMEPRAZOLE 20 MG CAPSULE.DR GT SCH (05:41)
[2019-05-19] MEDS: MULTIVIT, IRON, MIN NO. 8, FA TABLET GT SCH (05:41)
[2019-05-19 08:00] VITALS: BP 107/63
[2019-05-19] MEDS: FERROUS SULFATE 330 MG/7.5 ML UDC- FOR SA ONLY GT SCH ×2 (08:29→20:32)
[2019-05-19] MEDS: Z GUARD REMEDY PASTE 57 GM TUBE TOP SCH ×2 (08:30→20:32)
[2019-05-19] MEDS: TIZANIDINE HCL 4 MG TABLET PEG SCH ×2 (08:30→16:21)
[2019-05-19] MEDS: PROTEIN SUPPLEMENT (PROSTAT) 30 ML LIQUID PEG SCH ×2 (08:30→20:32)
[2019-05-19] MEDS: TRIAMCINOLONE ACET 0.1% OINT 15 GM TUBE TP PRN (08:30)
[2019-05-19] MEDS: NUTRISOURCE FIBER 4 GM PACKET PEG SCH ×2 (08:30→20:32)
[2019-05-19] MEDS: POLYVINYL ALCOHOL OPHT DROPS 15 ML BOTTLE EACHEYE PRN (08:31)
[2019-05-19] MEDS: HYDROGEN PEROXIDE 3% 118 ML BOTTLE TP SCH ×2 (09:00→21:02)
[2019-05-19 14:25] VITALS: BP 93/51
[2019-05-19] MEDS: ACETAMINOPHEN 650 MG/20 ML UDC- SA PATIENTS-PAIN ONLY PEG SCH (16:22)
--- NOTE | 2019-05-19 16:32 | NUR ---
SW mailed patient's annual [facility] Redetermination Form today. The form was mailed to: [facility] [address] [address] A copy of the form was filed in patient's file in this SW's office.
[2019-05-19 23:13] VITALS: BP 98/46
[2019-05-20] MEDS: OMEPRAZOLE 20 MG CAPSULE.DR GT SCH (05:06)
[2019-05-20] MEDS: MIDODRINE 10 MG PEG SCH ×3 (05:07→21:37)
[2019-05-20 08:00] VITALS: BP 99/62
[2019-05-20] MEDS: HYDROGEN PEROXIDE 3% 118 ML BOTTLE TP SCH ×2 (08:07→21:57)
[2019-05-20] MEDS: NUTRISOURCE FIBER 4 GM PACKET PEG SCH ×2 (08:20→21:37)
[2019-05-20] MEDS: PROTEIN SUPPLEMENT (PROSTAT) 30 ML LIQUID PEG SCH ×2 (08:20→21:37)
[2019-05-20] MEDS: Z GUARD REMEDY PASTE 57 GM TUBE TOP SCH ×2 (08:20→21:37)
[2019-05-20] MEDS: TRIAMCINOLONE ACET 0.1% OINT 15 GM TUBE TP PRN (08:20)
[2019-05-20] MEDS: TIZANIDINE HCL 4 MG TABLET PEG SCH ×2 (08:20→16:05)
[2019-05-20] MEDS: FERROUS SULFATE 330 MG/7.5 ML UDC- FOR SA ONLY GT SCH ×2 (08:20→21:37)
[2019-05-20] MEDS: POLYVINYL ALCOHOL OPHT DROPS 15 ML BOTTLE EACHEYE PRN (08:21)
[2019-05-20 13:15] VITALS: BP 90/63
[2019-05-20] MEDS: TWOCAL HN 1,000 ML LIQUID PEG PRN (13:16)
[2019-05-20] MEDS: ACETAMINOPHEN 650 MG/20 ML UDC- SA PATIENTS-PAIN ONLY PEG SCH (16:06)
[2019-05-20 20:00] VITALS: BP 111/67
--- NOTE | 2019-05-20 22:00 | NUR ---
Midodrine 10 mg held b/p 111/67
[2019-05-21] MEDS: MIDODRINE 10 MG PEG SCH ×3 (05:32→22:02)
[2019-05-21] MEDS: OMEPRAZOLE 20 MG CAPSULE.DR GT SCH (05:32)
[2019-05-21] MEDS: MULTIVIT, IRON, MIN NO. 8, FA TABLET GT SCH (05:33)
[2019-05-21] MEDS: HYDROGEN PEROXIDE 3% 118 ML BOTTLE TP SCH ×2 (07:42→21:23)
[2019-05-21 08:00] VITALS: BP 110/67
[2019-05-21] MEDS: NUTRISOURCE FIBER 4 GM PACKET PEG SCH ×2 (08:11→21:00)
[2019-05-21] MEDS: PROTEIN SUPPLEMENT (PROSTAT) 30 ML LIQUID PEG SCH ×2 (08:11→21:00)
[2019-05-21] MEDS: Z GUARD REMEDY PASTE 57 GM TUBE TOP SCH ×2 (08:11→21:00)
[2019-05-21] MEDS: TIZANIDINE HCL 4 MG TABLET PEG SCH ×2 (08:11→16:23)
[2019-05-21] MEDS: FERROUS SULFATE 330 MG/7.5 ML UDC- FOR SA ONLY GT SCH ×2 (08:11→21:00)
[2019-05-21] MEDS: ACETAMINOPHEN 650 MG/20 ML UDC- SA PATIENTS-PAIN ONLY PEG SCH (16:23)
[2019-05-21 21:15] VITALS: BP 100/59
[2019-05-22] MEDS: OMEPRAZOLE 20 MG CAPSULE.DR GT SCH (05:34)
[2019-05-22] MEDS: MIDODRINE 10 MG PEG SCH ×3 (05:34→22:07)
[2019-05-22 07:30] VITALS: BP 109/62
[2019-05-22] MEDS: NUTRISOURCE FIBER 4 GM PACKET PEG SCH ×2 (08:39→20:22)
[2019-05-22] MEDS: FERROUS SULFATE 330 MG/7.5 ML UDC- FOR SA ONLY GT SCH ×2 (08:39→20:22)
[2019-05-22] MEDS: PROTEIN SUPPLEMENT (PROSTAT) 30 ML LIQUID PEG SCH ×2 (08:39→20:22)
[2019-05-22] MEDS: TIZANIDINE HCL 4 MG TABLET PEG SCH ×2 (08:39→17:00)
[2019-05-22] MEDS: Z GUARD REMEDY PASTE 57 GM TUBE TOP SCH ×2 (08:40→20:22)
[2019-05-22] MEDS: HYDROGEN PEROXIDE 3% 118 ML BOTTLE TP SCH ×2 (08:50→20:32)
[2019-05-22] MEDS: ACETAMINOPHEN 650 MG/20 ML UDC- SA PATIENTS-PAIN ONLY PEG SCH (17:00)
--- NOTE | 2019-05-22 19:05 | NUR ---
SEEN BY DR. FRANK AND NNO.
[2019-05-22 20:00] VITALS: BP 93/56
[2019-05-23] MEDS: TWOCAL HN 1,000 ML LIQUID PEG PRN (01:20)
[2019-05-23] MEDS: OMEPRAZOLE 20 MG CAPSULE.DR GT SCH (06:04)
[2019-05-23] MEDS: MULTIVIT, IRON, MIN NO. 8, FA TABLET GT SCH (06:04)
[2019-05-23] MEDS: MIDODRINE 10 MG PEG SCH ×3 (06:04→21:26)
[2019-05-23 08:30] VITALS: BP 102/62
[2019-05-23] MEDS: PROTEIN SUPPLEMENT (PROSTAT) 30 ML LIQUID PEG SCH ×2 (08:39→21:26)
[2019-05-23] MEDS: TIZANIDINE HCL 4 MG TABLET PEG SCH ×2 (08:39→16:07)
[2019-05-23] MEDS: FERROUS SULFATE 330 MG/7.5 ML UDC- FOR SA ONLY GT SCH ×2 (08:39→21:26)
[2019-05-23] MEDS: NUTRISOURCE FIBER 4 GM PACKET PEG SCH ×2 (08:39→21:26)
[2019-05-23] MEDS: Z GUARD REMEDY PASTE 57 GM TUBE TOP SCH ×2 (08:39→21:26)
[2019-05-23] MEDS: HYDROGEN PEROXIDE 3% 118 ML BOTTLE TP SCH ×2 (09:00→21:32)
[2019-05-23] MEDS: ACETAMINOPHEN 650 MG/20 ML UDC- SA PATIENTS-PAIN ONLY PEG SCH (16:07)
[2019-05-23 20:08] VITALS: BP 117/65
[2019-05-24 05:04] VITALS: BP 112/65
[2019-05-24] MEDS: OMEPRAZOLE 20 MG CAPSULE.DR GT SCH (05:04)
[2019-05-24] MEDS: MIDODRINE 10 MG PEG SCH ×3 (05:04→22:00)
[2019-05-24] MEDS: HYDROGEN PEROXIDE 3% 118 ML BOTTLE TP SCH ×2 (07:49→21:45)
[2019-05-24 08:30] VITALS: BP 105/61
[2019-05-24] MEDS: FERROUS SULFATE 330 MG/7.5 ML UDC- FOR SA ONLY GT SCH ×2 (08:52→20:43)
[2019-05-24] MEDS: NUTRISOURCE FIBER 4 GM PACKET PEG SCH ×2 (08:52→20:43)
[2019-05-24] MEDS: PROTEIN SUPPLEMENT (PROSTAT) 30 ML LIQUID PEG SCH ×2 (08:54→20:43)
[2019-05-24] MEDS: TIZANIDINE HCL 4 MG TABLET PEG SCH ×2 (08:55→16:29)
[2019-05-24] MEDS: Z GUARD REMEDY PASTE 57 GM TUBE TOP SCH ×2 (08:55→20:43)
[2019-05-24 13:30] VITALS: BP 98/55
[2019-05-24] MEDS: ACETAMINOPHEN 650 MG/20 ML UDC- SA PATIENTS-PAIN ONLY PEG SCH (16:29)
[2019-05-24 20:18] VITALS: BP 127/54
[2019-05-25 05:17] VITALS: BP 122/70
[2019-05-25] MEDS: OMEPRAZOLE 20 MG CAPSULE.DR GT SCH (05:17)
[2019-05-25] MEDS: MIDODRINE 10 MG PEG SCH ×3 (05:17→21:37)
[2019-05-25] MEDS: MULTIVIT, IRON, MIN NO. 8, FA TABLET GT SCH (06:21)
[2019-05-25 08:00] VITALS: BP 112/71
[2019-05-25] MEDS: TIZANIDINE HCL 4 MG TABLET PEG SCH ×2 (08:07→16:07)
[2019-05-25] MEDS: NUTRISOURCE FIBER 4 GM PACKET PEG SCH ×2 (08:07→21:36)
[2019-05-25] MEDS: PROTEIN SUPPLEMENT (PROSTAT) 30 ML LIQUID PEG SCH ×2 (08:07→21:36)
[2019-05-25] MEDS: FERROUS SULFATE 330 MG/7.5 ML UDC- FOR SA ONLY GT SCH ×2 (08:07→21:36)
[2019-05-25] MEDS: Z GUARD REMEDY PASTE 57 GM TUBE TOP SCH ×2 (08:08→21:37)
[2019-05-25] MEDS: HYDROGEN PEROXIDE 3% 118 ML BOTTLE TP SCH ×2 (08:48→20:58)
[2019-05-25] MEDS: ACETAMINOPHEN 650 MG/20 ML UDC- SA PATIENTS-PAIN ONLY PEG SCH (16:07)
[2019-05-25] MEDS: TWOCAL HN 1,000 ML LIQUID PEG PRN (17:35)
[2019-05-25 20:35] VITALS: BP 91/51
[2019-05-26] MEDS: OMEPRAZOLE 20 MG CAPSULE.DR GT SCH (05:38)
[2019-05-26] MEDS: MIDODRINE 10 MG PEG SCH ×3 (05:39→21:41)
[2019-05-26 08:00] VITALS: BP 107/60
[2019-05-26] MEDS: PROTEIN SUPPLEMENT (PROSTAT) 30 ML LIQUID PEG SCH ×2 (08:33→21:40)
[2019-05-26] MEDS: NUTRISOURCE FIBER 4 GM PACKET PEG SCH ×2 (08:33→21:40)
[2019-05-26] MEDS: FERROUS SULFATE 330 MG/7.5 ML UDC- FOR SA ONLY GT SCH ×2 (08:33→21:40)
[2019-05-26] MEDS: Z GUARD REMEDY PASTE 57 GM TUBE TOP SCH ×2 (08:34→21:41)
[2019-05-26] MEDS: TIZANIDINE HCL 4 MG TABLET PEG SCH ×2 (08:34→16:49)
[2019-05-26] MEDS: HYDROGEN PEROXIDE 3% 118 ML BOTTLE TP SCH ×2 (09:44→21:04)
[2019-05-26] MEDS: ACETAMINOPHEN 650 MG/20 ML UDC- SA PATIENTS-PAIN ONLY PEG SCH (16:49)
[2019-05-26 20:00] VITALS: BP 96/49
[2019-05-27] MEDS: MIDODRINE 10 MG PEG SCH ×3 (05:50→21:44)
[2019-05-27] MEDS: OMEPRAZOLE 20 MG CAPSULE.DR GT SCH (05:50)
[2019-05-27] MEDS: MULTIVIT, IRON, MIN NO. 8, FA TABLET GT SCH (05:50)
[2019-05-27 08:00] VITALS: BP 105/59
[2019-05-27] MEDS: FERROUS SULFATE 330 MG/7.5 ML UDC- FOR SA ONLY GT SCH ×2 (08:30→21:43)
[2019-05-27] MEDS: TIZANIDINE HCL 4 MG TABLET PEG SCH ×2 (08:31→16:47)
[2019-05-27] MEDS: Z GUARD REMEDY PASTE 57 GM TUBE TOP SCH ×2 (08:31→21:43)
[2019-05-27] MEDS: NUTRISOURCE FIBER 4 GM PACKET PEG SCH ×2 (08:31→21:43)
[2019-05-27] MEDS: PROTEIN SUPPLEMENT (PROSTAT) 30 ML LIQUID PEG SCH ×2 (08:31→21:43)
[2019-05-27] MEDS: HYDROGEN PEROXIDE 3% 118 ML BOTTLE TP SCH ×2 (09:45→20:50)
[2019-05-27] MEDS: ACETAMINOPHEN 650 MG/20 ML UDC- SA PATIENTS-PAIN ONLY PEG SCH (16:47)
[2019-05-27 19:36] VITALS: BP 96/62
[2019-05-28] MEDS: MIDODRINE 10 MG PEG SCH ×3 (05:25→21:23)
[2019-05-28] MEDS: OMEPRAZOLE 20 MG CAPSULE.DR GT SCH (05:25)
[2019-05-28] MEDS: TWOCAL HN 1,000 ML LIQUID PEG PRN (07:21)
[2019-05-28] MEDS: HYDROGEN PEROXIDE 3% 118 ML BOTTLE TP SCH ×2 (07:40→20:44)
[2019-05-28] MEDS: TIZANIDINE HCL 4 MG TABLET PEG SCH ×2 (08:30→16:28)
[2019-05-28] MEDS: Z GUARD REMEDY PASTE 57 GM TUBE TOP SCH ×2 (08:30→20:57)
[2019-05-28] MEDS: NUTRISOURCE FIBER 4 GM PACKET PEG SCH ×2 (08:30→20:57)
[2019-05-28] MEDS: PROTEIN SUPPLEMENT (PROSTAT) 30 ML LIQUID PEG SCH ×2 (08:30→20:57)
[2019-05-28] MEDS: FERROUS SULFATE 330 MG/7.5 ML UDC- FOR SA ONLY GT SCH ×2 (08:30→20:57)
[2019-05-28 11:42] VITALS: BP 107/52
[2019-05-28] MEDS: ACETAMINOPHEN 650 MG/20 ML UDC- SA PATIENTS-PAIN ONLY PEG SCH (16:28)
[2019-05-28 20:22] VITALS: BP 112/67
[2019-05-29 05:00] VITALS: BP 119/75
[2019-05-29] MEDS: MULTIVIT, IRON, MIN NO. 8, FA TABLET GT SCH (05:36)
[2019-05-29] MEDS: OMEPRAZOLE 20 MG CAPSULE.DR GT SCH (05:36)
[2019-05-29] MEDS: MIDODRINE 10 MG PEG SCH ×3 (05:37→22:00)
[2019-05-29 08:04] VITALS: BP 110/58
[2019-05-29] MEDS: FERROUS SULFATE 330 MG/7.5 ML UDC- FOR SA ONLY GT SCH ×2 (08:30→20:53)
[2019-05-29] MEDS: NUTRISOURCE FIBER 4 GM PACKET PEG SCH ×2 (08:30→20:53)
[2019-05-29] MEDS: PROTEIN SUPPLEMENT (PROSTAT) 30 ML LIQUID PEG SCH ×2 (08:31→20:53)
[2019-05-29] MEDS: TIZANIDINE HCL 4 MG TABLET PEG SCH ×2 (08:32→16:31)
[2019-05-29] MEDS: Z GUARD REMEDY PASTE 57 GM TUBE TOP SCH ×2 (08:32→20:53)
[2019-05-29] MEDS: HYDROGEN PEROXIDE 3% 118 ML BOTTLE TP SCH ×2 (09:53→21:22)
[2019-05-29] MEDS: ACETAMINOPHEN 650 MG/20 ML UDC- SA PATIENTS-PAIN ONLY PEG SCH (16:30)
[2019-05-29 20:25] VITALS: BP 114/66
[2019-05-30] MEDS: TWOCAL HN 1,000 ML LIQUID PEG PRN (04:49)
[2019-05-30] MEDS: OMEPRAZOLE 20 MG CAPSULE.DR GT SCH (05:13)
[2019-05-30 05:14] VITALS: BP 103/60
[2019-05-30] MEDS: MIDODRINE 10 MG PEG SCH ×3 (05:14→22:01)
[2019-05-30 08:03] VITALS: BP 106/53
[2019-05-30] MEDS: FERROUS SULFATE 330 MG/7.5 ML UDC- FOR SA ONLY GT SCH ×2 (08:55→20:45)
[2019-05-30] MEDS: NUTRISOURCE FIBER 4 GM PACKET PEG SCH ×2 (08:55→20:45)
[2019-05-30] MEDS: PROTEIN SUPPLEMENT (PROSTAT) 30 ML LIQUID PEG SCH ×2 (08:56→20:45)
[2019-05-30] MEDS: TIZANIDINE HCL 4 MG TABLET PEG SCH ×2 (08:57→17:24)
[2019-05-30] MEDS: Z GUARD REMEDY PASTE 57 GM TUBE TOP SCH ×2 (08:57→20:45)
[2019-05-30] MEDS: HYDROGEN PEROXIDE 3% 118 ML BOTTLE TP SCH ×2 (09:00→21:23)
[2019-05-30] MEDS: ACETAMINOPHEN 650 MG/20 ML UDC- SA PATIENTS-PAIN ONLY PEG SCH (17:24)
--- NOTE | 2019-05-30 19:08 | NUR ---
This SW spoke with patient's mother Morena [phone] and informed her that per CDC and [facility] decision to minimize the risk of subacute residents becoming sick with the COVID-19 virus, visitation to [facility] will be suspended, effective immediately, and until further notice. Morena expressed understanding.
[2019-05-30 21:59] VITALS: BP 91/57
[2019-05-31] MEDS: OMEPRAZOLE 20 MG CAPSULE.DR GT SCH (05:16)
[2019-05-31] MEDS: MIDODRINE 10 MG PEG SCH ×3 (05:16→21:49)
[2019-05-31 05:17] VITALS: BP 102/60
[2019-05-31] MEDS: BISACODYL 10 MG SUPP.RECT RC PRN (05:22)
[2019-05-31] MEDS: MULTIVIT, IRON, MIN NO. 8, FA TABLET GT SCH (05:53)
--- NOTE | 2019-05-31 08:00 | NUR ---
No respiratory distress noted ,afebrile temp 98.2,no changes of condition.
[2019-05-31] MEDS: FERROUS SULFATE 330 MG/7.5 ML UDC- FOR SA ONLY GT SCH ×2 (08:56→21:48)
[2019-05-31] MEDS: NUTRISOURCE FIBER 4 GM PACKET PEG SCH ×2 (08:57→21:48)
[2019-05-31] MEDS: Z GUARD REMEDY PASTE 57 GM TUBE TOP SCH ×2 (08:57→21:48)
[2019-05-31] MEDS: TIZANIDINE HCL 4 MG TABLET PEG SCH ×2 (08:57→16:30)
[2019-05-31] MEDS: PROTEIN SUPPLEMENT (PROSTAT) 30 ML LIQUID PEG SCH ×2 (08:57→21:48)
[2019-05-31] MEDS: HYDROGEN PEROXIDE 3% 118 ML BOTTLE TP SCH ×2 (10:10→22:20)
[2019-05-31 13:59] VITALS: BP 98/61
[2019-05-31] MEDS: ACETAMINOPHEN 650 MG/20 ML UDC- SA PATIENTS-PAIN ONLY PEG SCH (16:30)
[2019-05-31 18:07] VITALS: BP 99/58
--- NOTE | 2019-05-31 21:45 | NUR ---
Temperature is 98.3, trach is intact and patent, no respiratory distress noted, 02 sat is 99% on 28% fi02, kept clean and comfortable.
[2019-05-31 22:04] VITALS: BP 98/58
[2019-06-01] MEDS: TWOCAL HN 1,000 ML LIQUID PEG PRN (03:53)
[2019-06-01 05:48] VITALS: BP 90/54
[2019-06-01] MEDS: OMEPRAZOLE 20 MG CAPSULE.DR GT SCH (05:48)
[2019-06-01] MEDS: MIDODRINE 10 MG PEG SCH ×3 (05:48→22:27)
[2019-06-01 08:30] VITALS: BP 103/65
[2019-06-01] MEDS: NUTRISOURCE FIBER 4 GM PACKET PEG SCH ×2 (09:32→20:43)
[2019-06-01] MEDS: Z GUARD REMEDY PASTE 57 GM TUBE TOP SCH ×2 (09:32→20:43)
[2019-06-01] MEDS: TIZANIDINE HCL 4 MG TABLET PEG SCH ×2 (09:32→17:45)
[2019-06-01] MEDS: PROTEIN SUPPLEMENT (PROSTAT) 30 ML LIQUID PEG SCH ×2 (09:32→20:43)
[2019-06-01] MEDS: FERROUS SULFATE 330 MG/7.5 ML UDC- FOR SA ONLY GT SCH ×2 (09:32→20:43)
[2019-06-01] MEDS: HYDROGEN PEROXIDE 3% 118 ML BOTTLE TP SCH ×2 (11:00→20:54)
--- NOTE | 2019-06-01 17:40 | NUR ---
Afebrile temp 97.7,no respiratory distress noted,suctioned as needed,enteral feeding tolerated well,no gastric residual noted,condition unchanged.
[2019-06-01] MEDS: ACETAMINOPHEN 650 MG/20 ML UDC- SA PATIENTS-PAIN ONLY PEG SCH (17:45)
--- NOTE | 2019-06-01 22:25 | NUR ---
Afebrile, temperature is 98.7 Fahrenheit, trach is intact and patent, 02 sat is 99%, no respiratory distress noted, kept clean and comfortable.
[2019-06-01 23:00] VITALS: BP 94/55
[2019-06-02] MEDS: OMEPRAZOLE 20 MG CAPSULE.DR GT SCH (05:06)
[2019-06-02] MEDS: MIDODRINE 10 MG PEG SCH ×3 (05:07→21:46)
[2019-06-02] MEDS: MULTIVIT, IRON, MIN NO. 8, FA TABLET GT SCH (05:42)
[2019-06-02] MEDS: NUTRISOURCE FIBER 4 GM PACKET PEG SCH ×2 (08:29→20:57)
[2019-06-02] MEDS: Z GUARD REMEDY PASTE 57 GM TUBE TOP SCH ×2 (08:29→20:57)
[2019-06-02] MEDS: FERROUS SULFATE 330 MG/7.5 ML UDC- FOR SA ONLY GT SCH ×2 (08:29→20:57)
[2019-06-02] MEDS: PROTEIN SUPPLEMENT (PROSTAT) 30 ML LIQUID PEG SCH ×2 (08:29→20:57)
[2019-06-02] MEDS: TIZANIDINE HCL 4 MG TABLET PEG SCH ×2 (08:29→17:19)
[2019-06-02 08:30] VITALS: BP 99/61
[2019-06-02] MEDS: HYDROGEN PEROXIDE 3% 118 ML BOTTLE TP SCH ×2 (09:40→20:52)
--- NOTE | 2019-06-02 11:27 | NUR ---
JEY received patient's annual Adolescent Psychiatrist Payee Report form today. JEY notified Logan Tuan in the accounting department and forwarded the form to him via interoffice mail.
--- NOTE | 2019-06-02 14:49 | NUR ---
Patient stable, no acute respiratory distress noted, repositioned q2hrs for comfort.
[2019-06-02] MEDS: ACETAMINOPHEN 650 MG/20 ML UDC- SA PATIENTS-PAIN ONLY PEG SCH (17:20)
[2019-06-02 20:32] VITALS: BP 105/62
--- NOTE | 2019-06-02 21:45 | NUR ---
Temperature is 98.4, no SOB, no signs of any respiratory distress noted, 02 sat is 100% on 28% fi02. Patient is stable, turned and repositioned, kept clean and comfortable.
[2019-06-03] MEDS: MIDODRINE 10 MG PEG SCH ×3 (05:23→21:12)
[2019-06-03] MEDS: OMEPRAZOLE 20 MG CAPSULE.DR GT SCH (05:23)
[2019-06-03] MEDS: HYDROGEN PEROXIDE 3% 118 ML BOTTLE TP SCH ×2 (08:23→20:54)
[2019-06-03] MEDS: Z GUARD REMEDY PASTE 57 GM TUBE TOP SCH ×2 (08:26→21:12)
[2019-06-03] MEDS: NUTRISOURCE FIBER 4 GM PACKET PEG SCH ×2 (08:26→21:12)
[2019-06-03] MEDS: TIZANIDINE HCL 4 MG TABLET PEG SCH ×2 (08:26→17:00)
[2019-06-03] MEDS: PROTEIN SUPPLEMENT (PROSTAT) 30 ML LIQUID PEG SCH ×2 (08:26→21:12)
[2019-06-03] MEDS: FERROUS SULFATE 330 MG/7.5 ML UDC- FOR SA ONLY GT SCH ×2 (08:26→21:12)
[2019-06-03] MEDS: ACETAMINOPHEN 650 MG/20 ML UDC- SA PATIENTS-PAIN ONLY PEG SCH (17:00)
[2019-06-03] MEDS: TWOCAL HN 1,000 ML LIQUID PEG PRN (18:14)
--- NOTE | 2019-06-03 18:32 | NUR ---
No acute respiratory distress ,trach connected to p mist 28 %,no increase secretions,afebrile temperature 98.4.
[2019-06-03 20:00] VITALS: BP 111/68
[2019-06-04] MEDS: MIDODRINE 10 MG PEG SCH ×3 (05:18→22:18)
[2019-06-04] MEDS: OMEPRAZOLE 20 MG CAPSULE.DR GT SCH (05:18)
[2019-06-04 05:23] VITALS: BP 107/68
[2019-06-04] MEDS: MULTIVIT, IRON, MIN NO. 8, FA TABLET GT SCH (05:38)
[2019-06-04] MEDS: FERROUS SULFATE 330 MG/7.5 ML UDC- FOR SA ONLY GT SCH ×2 (08:23→20:55)
[2019-06-04] MEDS: Z GUARD REMEDY PASTE 57 GM TUBE TOP SCH ×2 (08:24→20:55)
[2019-06-04] MEDS: PROTEIN SUPPLEMENT (PROSTAT) 30 ML LIQUID PEG SCH ×2 (08:24→20:55)
[2019-06-04] MEDS: TIZANIDINE HCL 4 MG TABLET PEG SCH ×2 (08:24→16:48)
[2019-06-04] MEDS: NUTRISOURCE FIBER 4 GM PACKET PEG SCH ×2 (08:24→20:55)
[2019-06-04] MEDS: HYDROGEN PEROXIDE 3% 118 ML BOTTLE TP SCH ×2 (09:24→21:59)
[2019-06-04 11:48] VITALS: BP 120/67
[2019-06-04 14:25] VITALS: BP 99/56
[2019-06-04] MEDS: ACETAMINOPHEN 650 MG/20 ML UDC- SA PATIENTS-PAIN ONLY PEG SCH (16:48)
--- NOTE | 2019-06-04 18:36 | NUR ---
In stable condition,no respiratory distress,trach connected to p mist,afebrile temp 97.3.Bedside phone call by mother.assisted by the nurse.
[2019-06-04 20:00] VITALS: BP 99/61
[2019-06-05] MEDS: OMEPRAZOLE 20 MG CAPSULE.DR GT SCH (05:41)
[2019-06-05] MEDS: MIDODRINE 10 MG PEG SCH ×3 (05:41→21:52)
[2019-06-05 05:54] VITALS: BP 116/57
[2019-06-05 08:30] VITALS: BP 106/68
[2019-06-05] MEDS: FERROUS SULFATE 330 MG/7.5 ML UDC- FOR SA ONLY GT SCH ×2 (08:53→21:51)
[2019-06-05] MEDS: TIZANIDINE HCL 4 MG TABLET PEG SCH ×2 (08:54→16:26)
[2019-06-05] MEDS: Z GUARD REMEDY PASTE 57 GM TUBE TOP SCH ×2 (08:54→21:51)
[2019-06-05] MEDS: NUTRISOURCE FIBER 4 GM PACKET PEG SCH ×2 (08:54→21:51)
[2019-06-05] MEDS: PROTEIN SUPPLEMENT (PROSTAT) 30 ML LIQUID PEG SCH ×2 (08:54→21:51)
[2019-06-05] MEDS: HYDROGEN PEROXIDE 3% 118 ML BOTTLE TP SCH ×2 (09:50→21:37)
[2019-06-05 14:34] VITALS: BP 97/63
--- NOTE | 2019-06-05 15:13 | NUR ---
9:05am: JEY received a call from Danna Mckee, medical case manager at [facility], requesting information on patient's trust account/bank statement. Danna asked if this SW could fax her the patient's most recent bank statement and most current bank balance. JEY stated that she will work with the business office in order to obtain this information and then will fax it to her. Danna provided SW with her fax number, . Danna also asked that SW put the patient's on the fax face sheet and Danna's ID number [id number]. Danna provided this SW with the call center phone number [phone] and stated that a message can be left for Danna at the call center and that she would then return the call the next business day. JEY contacted budget accountant Logan Gonsales and Solution Director Morenita Quispe and informed them both of the information request stated above. Logan Dickerson and Morenita stated that they would provide SW with this information as soon as possible. Once JEY receives this information, JEY will then fax it to Danna Mckee at [facility].
[2019-06-05] MEDS: ACETAMINOPHEN 650 MG/20 ML UDC- SA PATIENTS-PAIN ONLY PEG SCH (16:25)
[2019-06-05] MEDS: TWOCAL HN 1,000 ML LIQUID PEG PRN (17:05)
[2019-06-05 20:00] VITALS: BP 106/54
[2019-06-06 05:05] VITALS: BP 115/70
[2019-06-06] MEDS: MIDODRINE 10 MG PEG SCH ×3 (05:38→21:08)
[2019-06-06] MEDS: OMEPRAZOLE 20 MG CAPSULE.DR GT SCH (05:38)
[2019-06-06] MEDS: MULTIVIT, IRON, MIN NO. 8, FA TABLET GT SCH (05:39)
[2019-06-06 08:02] VITALS: BP 99/62
[2019-06-06] MEDS: FERROUS SULFATE 330 MG/7.5 ML UDC- FOR SA ONLY GT SCH ×2 (09:18→20:20)
[2019-06-06] MEDS: Z GUARD REMEDY PASTE 57 GM TUBE TOP SCH ×2 (09:19→20:20)
[2019-06-06] MEDS: PROTEIN SUPPLEMENT (PROSTAT) 30 ML LIQUID PEG SCH ×2 (09:19→20:20)
[2019-06-06] MEDS: TIZANIDINE HCL 4 MG TABLET PEG SCH ×2 (09:19→17:33)
[2019-06-06] MEDS: NUTRISOURCE FIBER 4 GM PACKET PEG SCH ×2 (09:19→20:20)
[2019-06-06] MEDS: HYDROGEN PEROXIDE 3% 118 ML BOTTLE TP SCH ×2 (09:56→21:15)
[2019-06-06] MEDS: ACETAMINOPHEN 650 MG/20 ML UDC- SA PATIENTS-PAIN ONLY PEG SCH (17:33)
--- NOTE | 2019-06-06 18:07 | NUR ---
JEY received a copy of patient's April bank statement and a copy of the most recent SOC payment, dated 06/03/2019. JEY faxed this information to Danna Mckee at [facility] (fax # [phone]), per her request during phone call with this JEY yesterday (see SS note dated 06/04). Addendum: 06/06/19 at 1809 by LOS KHANNA Bank statement and copy of most recent SOC payment was received from CFO [employer].
[2019-06-06] MEDS: BISACODYL 10 MG SUPP.RECT RC PRN (18:48)
[2019-06-06 20:00] VITALS: BP 96/59
[2019-06-07] MEDS: OMEPRAZOLE 20 MG CAPSULE.DR GT SCH (05:28)
[2019-06-07] MEDS: MIDODRINE 10 MG PEG SCH ×3 (05:28→21:46)
[2019-06-07 07:59] VITALS: BP 108/57
[2019-06-07] MEDS: FERROUS SULFATE 330 MG/7.5 ML UDC- FOR SA ONLY GT SCH ×2 (09:00→21:44)
[2019-06-07] MEDS: HYDROGEN PEROXIDE 3% 118 ML BOTTLE TP SCH ×2 (09:00→20:57)
[2019-06-07] MEDS: PROTEIN SUPPLEMENT (PROSTAT) 30 ML LIQUID PEG SCH ×2 (09:01→21:44)
[2019-06-07] MEDS: Z GUARD REMEDY PASTE 57 GM TUBE TOP SCH ×2 (09:01→21:44)
[2019-06-07] MEDS: TIZANIDINE HCL 4 MG TABLET PEG SCH ×2 (09:01→17:22)
[2019-06-07] MEDS: NUTRISOURCE FIBER 4 GM PACKET PEG SCH ×2 (09:01→21:44)
--- NOTE | 2019-06-07 13:00 | NUR ---
SEEN BY DR. LYNNE AND WITH NNO.
[2019-06-07] MEDS: ACETAMINOPHEN 650 MG/20 ML UDC- SA PATIENTS-PAIN ONLY PEG SCH (17:22)
[2019-06-07 20:32] VITALS: BP 95/59
[2019-06-08] MEDS: MIDODRINE 10 MG PEG SCH ×3 (05:44→22:00)
[2019-06-08] MEDS: TWOCAL HN 1,000 ML LIQUID PEG PRN (05:45)
[2019-06-08] MEDS: MULTIVIT, IRON, MIN NO. 8, FA TABLET GT SCH (05:45)
[2019-06-08] MEDS: OMEPRAZOLE 20 MG CAPSULE.DR GT SCH (05:45)
[2019-06-08 08:00] VITALS: BP 121/61
[2019-06-08] MEDS: TIZANIDINE HCL 4 MG TABLET PEG SCH ×2 (08:12→17:28)
[2019-06-08] MEDS: NUTRISOURCE FIBER 4 GM PACKET PEG SCH ×2 (08:12→20:57)
[2019-06-08] MEDS: PROTEIN SUPPLEMENT (PROSTAT) 30 ML LIQUID PEG SCH ×2 (08:12→20:57)
[2019-06-08] MEDS: FERROUS SULFATE 330 MG/7.5 ML UDC- FOR SA ONLY GT SCH ×2 (08:12→20:57)
[2019-06-08] MEDS: Z GUARD REMEDY PASTE 57 GM TUBE TOP SCH ×2 (08:12→20:57)
--- NOTE | 2019-06-08 08:39 | NUR ---
SEEN BY ALICIA COTTO N.P. AND WITH NNO.
[2019-06-08] MEDS: HYDROGEN PEROXIDE 3% 118 ML BOTTLE TP SCH ×2 (09:10→21:15)
[2019-06-08] MEDS: ACETAMINOPHEN 650 MG/20 ML UDC- SA PATIENTS-PAIN ONLY PEG SCH (17:28)
[2019-06-08 20:57] VITALS: BP 120/62
[2019-06-09] MEDS: OMEPRAZOLE 20 MG CAPSULE.DR GT SCH (05:00)
[2019-06-09] MEDS: MIDODRINE 10 MG PEG SCH ×3 (05:01→21:03)
[2019-06-09 08:00] VITALS: BP 114/68
[2019-06-09] MEDS: FERROUS SULFATE 330 MG/7.5 ML UDC- FOR SA ONLY GT SCH ×2 (08:32→21:01)
[2019-06-09] MEDS: NUTRISOURCE FIBER 4 GM PACKET PEG SCH ×2 (08:32→21:01)
[2019-06-09] MEDS: PROTEIN SUPPLEMENT (PROSTAT) 30 ML LIQUID PEG SCH ×2 (08:32→21:02)
[2019-06-09] MEDS: TIZANIDINE HCL 4 MG TABLET PEG SCH ×2 (08:32→16:01)
[2019-06-09] MEDS: Z GUARD REMEDY PASTE 57 GM TUBE TOP SCH ×2 (08:32→21:02)
[2019-06-09] MEDS: HYDROGEN PEROXIDE 3% 118 ML BOTTLE TP SCH ×2 (09:00→21:00)
[2019-06-09] MEDS: ACETAMINOPHEN 650 MG/20 ML UDC- SA PATIENTS-PAIN ONLY PEG SCH (16:01)
[2019-06-09 20:57] VITALS: BP 113/67
[2019-06-10] MEDS: TWOCAL HN 1,000 ML LIQUID PEG PRN (02:51)
[2019-06-10] MEDS: OMEPRAZOLE 20 MG CAPSULE.DR GT SCH (05:08)
[2019-06-10] MEDS: MIDODRINE 10 MG PEG SCH ×3 (05:09→21:17)
[2019-06-10] MEDS: MULTIVIT, IRON, MIN NO. 8, FA TABLET GT SCH (05:33)
[2019-06-10 08:00] VITALS: BP 119/70
[2019-06-10] MEDS: FERROUS SULFATE 330 MG/7.5 ML UDC- FOR SA ONLY GT SCH ×2 (08:27→21:15)
[2019-06-10] MEDS: PROTEIN SUPPLEMENT (PROSTAT) 30 ML LIQUID PEG SCH ×2 (08:28→21:16)
[2019-06-10] MEDS: TIZANIDINE HCL 4 MG TABLET PEG SCH ×2 (08:28→17:17)
[2019-06-10] MEDS: NUTRISOURCE FIBER 4 GM PACKET PEG SCH ×2 (08:28→21:16)
[2019-06-10] MEDS: Z GUARD REMEDY PASTE 57 GM TUBE TOP SCH ×2 (08:28→21:16)
[2019-06-10] MEDS: HYDROGEN PEROXIDE 3% 118 ML BOTTLE TP SCH ×2 (09:00→20:57)
[2019-06-10 14:28] VITALS: BP 98/63
--- NOTE | 2019-06-10 15:27 | NUR ---
Pharmacy Update from Today's 06/10/19 IDT Meeting VS: Temp 98.5 BP 119/70 HR 101 LABS: (from 09/13/18, no new labs) Wbc 8.5 H/H 13/39.5 Plt 226 Na 137 K 3.9 Cl 102 CO2 27 BUN/SCr 12/0.5 BS 90 Ca 8.7 phos 3.3 Mg 2.1 MEDICATION USE REVIEWED: > Pt not on any anti-epileptic or anti-psych medications > Pt on Midodrine 10mg q8hr ATC with parameters for hold SBP >110 > PRN MED USAGE: (Apr) Tylenol for pain used x 0 Tylenol for temp used x 0 Artificial tears used x 2 Docusate PRN x 3 Bisacodyl PRN used x 1 Benadryl PRN used x 6 (for resolved rxn from family's moisterizer while OOP) NEW ORDERS NOTED: > NA Patient reviewed and discussed at IDT with no medication issues at this time, remains stable on current medications. No further recommendations per rx at this time. Will continue to follow
--- NOTE | 2019-06-10 15:46 | NUR ---
INTERDISCIPLINARY PLAN OF CARE CONFERENCE was held today. Patient's mother was unable to attend the meeting, however had informed this SW via email that she did not have any concerns at this time. Dr. Caraballo and the Interdisciplinary Team reviewed the current plan of care in detail. RN reported on patient's medical condition. See RN IDT conference notes. No major changes in condition were reported. See also all other disciplines IDT notes and physician's progress notes for additional details.
[2019-06-10] MEDS: ACETAMINOPHEN 650 MG/20 ML UDC- SA PATIENTS-PAIN ONLY PEG SCH (17:17)
[2019-06-10 20:17] VITALS: BP 113/60
[2019-06-11] MEDS: OMEPRAZOLE 20 MG CAPSULE.DR GT SCH (05:43)
[2019-06-11] MEDS: MIDODRINE 10 MG PEG SCH ×3 (05:43→21:44)
[2019-06-11 08:05] VITALS: BP 94/60
[2019-06-11] MEDS: HYDROGEN PEROXIDE 3% 118 ML BOTTLE TP SCH ×2 (08:27→20:46)
[2019-06-11] MEDS: PROTEIN SUPPLEMENT (PROSTAT) 30 ML LIQUID PEG SCH ×2 (09:00→21:44)
[2019-06-11] MEDS: TIZANIDINE HCL 4 MG TABLET PEG SCH ×2 (09:00→16:31)
[2019-06-11] MEDS: FERROUS SULFATE 330 MG/7.5 ML UDC- FOR SA ONLY GT SCH ×2 (09:00→21:44)
[2019-06-11] MEDS: Z GUARD REMEDY PASTE 57 GM TUBE TOP SCH ×2 (09:00→21:44)
[2019-06-11] MEDS: NUTRISOURCE FIBER 4 GM PACKET PEG SCH ×2 (09:00→21:44)
[2019-06-11] MEDS: ACETAMINOPHEN 650 MG/20 ML UDC- SA PATIENTS-PAIN ONLY PEG SCH (16:31)
[2019-06-11] MEDS: DOCUSATE SODIUM 100 MG/10 ML LIQUID UDC GT PRN (18:49)
[2019-06-11 20:51] VITALS: BP 107/65
[2019-06-11 21:44] VITALS: BP 107/65
[2019-06-12] MEDS: MIDODRINE 10 MG PEG SCH ×3 (05:08→21:25)
[2019-06-12] MEDS: OMEPRAZOLE 20 MG CAPSULE.DR GT SCH (05:08)
[2019-06-12 05:09] VITALS: BP 100/60
[2019-06-12] MEDS: MULTIVIT, IRON, MIN NO. 8, FA TABLET GT SCH (06:59)
[2019-06-12 08:08] VITALS: BP 105/62
[2019-06-12] MEDS: Z GUARD REMEDY PASTE 57 GM TUBE TOP SCH ×2 (08:20→21:25)
[2019-06-12] MEDS: NUTRISOURCE FIBER 4 GM PACKET PEG SCH ×2 (08:20→21:25)
[2019-06-12] MEDS: PROTEIN SUPPLEMENT (PROSTAT) 30 ML LIQUID PEG SCH ×2 (08:20→21:25)
[2019-06-12] MEDS: TIZANIDINE HCL 4 MG TABLET PEG SCH ×2 (08:20→17:39)
[2019-06-12] MEDS: FERROUS SULFATE 330 MG/7.5 ML UDC- FOR SA ONLY GT SCH ×2 (08:20→21:25)
[2019-06-12] MEDS: HYDROGEN PEROXIDE 3% 118 ML BOTTLE TP SCH ×2 (09:00→20:49)
[2019-06-12 14:39] VITALS: BP 103/64
--- NOTE | 2019-06-12 15:02 | NUR ---
JEY spoke with patient's mother Morena today [phone] to check in on how she was doing with the current pandemic, and if she had any concerns/questions regarding the patient. Morena stated she was doing well, and was remaining at home and avoiding any social contact. Morena stated being in contact with the nurses on a daily basis in order to check in on her daughter, and not having any concerns at this time. Morena expressed gratitude to this SW and all the nurses for taking such good care of her daughter during this time that she cannot come to visit her. SW thanked Morena for her kind words and stated that she would relay this message to the nurses. SW reminded Morena of the option to video chat, and Morena stated she wanted to do so. JEY referred Morena to patient's nurse Maryann, who coordinated the video chat between Morena and the patient.
[2019-06-12] MEDS: ACETAMINOPHEN 650 MG/20 ML UDC- SA PATIENTS-PAIN ONLY PEG SCH (17:39)
[2019-06-12 20:15] VITALS: BP 92/54
[2019-06-13] MEDS: OMEPRAZOLE 20 MG CAPSULE.DR GT SCH (05:49)
[2019-06-13] MEDS: MIDODRINE 10 MG PEG SCH ×3 (05:49→22:00)
[2019-06-13] MEDS: FERROUS SULFATE 330 MG/7.5 ML UDC- FOR SA ONLY GT SCH ×2 (08:41→21:00)
[2019-06-13] MEDS: PROTEIN SUPPLEMENT (PROSTAT) 30 ML LIQUID PEG SCH ×2 (08:41→21:00)
[2019-06-13] MEDS: NUTRISOURCE FIBER 4 GM PACKET PEG SCH ×2 (08:41→21:00)
[2019-06-13] MEDS: TIZANIDINE HCL 4 MG TABLET PEG SCH ×2 (08:41→17:20)
[2019-06-13] MEDS: Z GUARD REMEDY PASTE 57 GM TUBE TOP SCH ×2 (08:41→21:00)
[2019-06-13] MEDS: HYDROGEN PEROXIDE 3% 118 ML BOTTLE TP SCH ×2 (09:00→20:57)
[2019-06-13 14:48] VITALS: BP 95/55
--- NOTE | 2019-06-13 16:16 | NUR ---
This and Subacute Maintenance Pipefitter Pio Boone provided an update to patient's mother Morena via email that per advisement from [facility], [facility], and CDC, visitation restrictions will continue to remain in place for all termite exterminator care facilities in order to protect the health and safety of residents and staff. Therefore [facility] will continue to restrict all visitations, until further notice.
[2019-06-13] MEDS: ACETAMINOPHEN 650 MG/20 ML UDC- SA PATIENTS-PAIN ONLY PEG SCH (17:21)
[2019-06-13 20:20] VITALS: BP 108/64
[2019-06-13 22:00] VITALS: BP 98/61
[2019-06-14] MEDS: OMEPRAZOLE 20 MG CAPSULE.DR GT SCH (05:27)
[2019-06-14] MEDS: MIDODRINE 10 MG PEG SCH ×3 (05:28→22:03)
[2019-06-14 05:33] VITALS: BP 94/56
[2019-06-14] MEDS: MULTIVIT, IRON, MIN NO. 8, FA TABLET GT SCH (05:33)
[2019-06-14] MEDS: HYDROGEN PEROXIDE 3% 118 ML BOTTLE TP SCH ×2 (08:10→21:10)
[2019-06-14] MEDS: FERROUS SULFATE 330 MG/7.5 ML UDC- FOR SA ONLY GT SCH ×2 (09:01→21:00)
[2019-06-14] MEDS: NUTRISOURCE FIBER 4 GM PACKET PEG SCH ×2 (09:01→21:00)
[2019-06-14] MEDS: PROTEIN SUPPLEMENT (PROSTAT) 30 ML LIQUID PEG SCH ×2 (09:01→21:00)
[2019-06-14] MEDS: Z GUARD REMEDY PASTE 57 GM TUBE TOP SCH ×2 (09:01→21:00)
[2019-06-14] MEDS: TIZANIDINE HCL 4 MG TABLET PEG SCH ×2 (09:01→17:17)
[2019-06-14] MEDS: TWOCAL HN 1,000 ML LIQUID PEG PRN (09:19)
[2019-06-14 10:30] VITALS: BP 95/59
[2019-06-14 14:08] VITALS: BP 85/45
[2019-06-14] MEDS: ACETAMINOPHEN 650 MG/20 ML UDC- SA PATIENTS-PAIN ONLY PEG SCH (17:17)
[2019-06-14 20:20] VITALS: BP 98/61
[2019-06-15 05:04] VITALS: BP 93/55
[2019-06-15] MEDS: MIDODRINE 10 MG PEG SCH ×3 (05:07→21:29)
[2019-06-15] MEDS: OMEPRAZOLE 20 MG CAPSULE.DR GT SCH (05:07)
[2019-06-15 08:03] VITALS: BP 109/60
[2019-06-15] MEDS: HYDROGEN PEROXIDE 3% 118 ML BOTTLE TP SCH ×2 (08:29→20:27)
[2019-06-15] MEDS: Z GUARD REMEDY PASTE 57 GM TUBE TOP SCH ×2 (09:01→21:29)
[2019-06-15] MEDS: NUTRISOURCE FIBER 4 GM PACKET PEG SCH ×2 (09:01→21:29)
[2019-06-15] MEDS: TIZANIDINE HCL 4 MG TABLET PEG SCH ×2 (09:01→17:45)
[2019-06-15] MEDS: PROTEIN SUPPLEMENT (PROSTAT) 30 ML LIQUID PEG SCH ×2 (09:01→21:29)
[2019-06-15] MEDS: FERROUS SULFATE 330 MG/7.5 ML UDC- FOR SA ONLY GT SCH ×2 (09:01→21:29)
[2019-06-15] MEDS: ACETAMINOPHEN 650 MG/20 ML UDC- SA PATIENTS-PAIN ONLY PEG SCH (17:45)
[2019-06-15 20:09] VITALS: BP 107/63
[2019-06-16] MEDS: MIDODRINE 10 MG PEG SCH ×3 (06:00→21:07)
[2019-06-16] MEDS: MULTIVIT, IRON, MIN NO. 8, FA TABLET GT SCH (06:10)
[2019-06-16] MEDS: OMEPRAZOLE 20 MG CAPSULE.DR GT SCH (06:10)
[2019-06-16 08:05] VITALS: BP 107/59
[2019-06-16] MEDS: NUTRISOURCE FIBER 4 GM PACKET PEG SCH ×2 (08:34→21:07)
[2019-06-16] MEDS: Z GUARD REMEDY PASTE 57 GM TUBE TOP SCH ×2 (08:34→21:07)
[2019-06-16] MEDS: TIZANIDINE HCL 4 MG TABLET PEG SCH ×2 (08:34→17:00)
[2019-06-16] MEDS: FERROUS SULFATE 330 MG/7.5 ML UDC- FOR SA ONLY GT SCH ×2 (08:34→21:06)
[2019-06-16] MEDS: PROTEIN SUPPLEMENT (PROSTAT) 30 ML LIQUID PEG SCH ×2 (08:34→21:07)
[2019-06-16] MEDS: HYDROGEN PEROXIDE 3% 118 ML BOTTLE TP SCH ×2 (09:36→20:48)
[2019-06-16] MEDS: ACETAMINOPHEN 650 MG/20 ML UDC- SA PATIENTS-PAIN ONLY PEG SCH (17:00)
[2019-06-16] MEDS: TWOCAL HN 1,000 ML LIQUID PEG PRN (18:14)
[2019-06-16 20:28] VITALS: BP 100/57
[2019-06-17] MEDS: OMEPRAZOLE 20 MG CAPSULE.DR GT SCH (05:06)
[2019-06-17] MEDS: MIDODRINE 10 MG PEG SCH ×3 (05:06→21:24)
[2019-06-17 08:05] VITALS: BP 101/51
--- NOTE | 2019-06-17 08:30 | NUR ---
Seen and examined by Rosalind LANE,no new orders .
[2019-06-17] MEDS: HYDROGEN PEROXIDE 3% 118 ML BOTTLE TP SCH ×2 (09:35→21:53)
[2019-06-17] MEDS: PROTEIN SUPPLEMENT (PROSTAT) 30 ML LIQUID PEG SCH ×2 (09:54→21:24)
[2019-06-17] MEDS: FERROUS SULFATE 330 MG/7.5 ML UDC- FOR SA ONLY GT SCH ×2 (09:54→21:23)
[2019-06-17] MEDS: NUTRISOURCE FIBER 4 GM PACKET PEG SCH ×2 (09:54→21:23)
[2019-06-17] MEDS: TIZANIDINE HCL 4 MG TABLET PEG SCH ×2 (09:54→17:00)
[2019-06-17] MEDS: Z GUARD REMEDY PASTE 57 GM TUBE TOP SCH ×2 (09:54→21:24)
[2019-06-17] MEDS: ACETAMINOPHEN 650 MG/20 ML UDC- SA PATIENTS-PAIN ONLY PEG SCH (17:00)
[2019-06-17] MEDS: BISACODYL 10 MG SUPP.RECT RC PRN (18:20)
[2019-06-17 20:59] VITALS: BP 95/54
[2019-06-18] MEDS: TWOCAL HN 1,000 ML LIQUID PEG PRN (05:00)
[2019-06-18] MEDS: MULTIVIT, IRON, MIN NO. 8, FA TABLET GT SCH (05:45)
[2019-06-18] MEDS: MIDODRINE 10 MG PEG SCH ×3 (05:45→21:32)
[2019-06-18] MEDS: OMEPRAZOLE 20 MG CAPSULE.DR GT SCH (05:45)
[2019-06-18] MEDS: NUTRISOURCE FIBER 4 GM PACKET PEG SCH ×2 (08:45→21:31)
[2019-06-18] MEDS: FERROUS SULFATE 330 MG/7.5 ML UDC- FOR SA ONLY GT SCH ×2 (08:45→21:31)
[2019-06-18] MEDS: Z GUARD REMEDY PASTE 57 GM TUBE TOP SCH ×2 (08:45→21:32)
[2019-06-18] MEDS: TIZANIDINE HCL 4 MG TABLET PEG SCH ×2 (08:45→16:50)
[2019-06-18] MEDS: PROTEIN SUPPLEMENT (PROSTAT) 30 ML LIQUID PEG SCH ×2 (08:45→21:32)
[2019-06-18] MEDS: HYDROGEN PEROXIDE 3% 118 ML BOTTLE TP SCH ×2 (09:46→21:34)
[2019-06-18 11:52] VITALS: BP 115/55
--- NOTE | 2019-06-18 14:00 | NUR ---
Ip Paralegal care done by Dr Morfin.
[2019-06-18] MEDS: ACETAMINOPHEN 650 MG/20 ML UDC- SA PATIENTS-PAIN ONLY PEG SCH (16:50)
--- NOTE | 2019-06-18 18:16 | NUR ---
Seen and examined by Dr Wu with no new orders.
[2019-06-18 20:41] VITALS: BP 91/51
[2019-06-19] MEDS: MIDODRINE 10 MG PEG SCH ×3 (05:57→21:42)
[2019-06-19] MEDS: OMEPRAZOLE 20 MG CAPSULE.DR GT SCH (05:57)
[2019-06-19 08:06] VITALS: BP 109/60
[2019-06-19] MEDS: TIZANIDINE HCL 4 MG TABLET PEG SCH ×2 (08:36→17:22)
[2019-06-19] MEDS: FERROUS SULFATE 330 MG/7.5 ML UDC- FOR SA ONLY GT SCH ×2 (08:36→21:40)
[2019-06-19] MEDS: NUTRISOURCE FIBER 4 GM PACKET PEG SCH ×2 (08:36→21:41)
[2019-06-19] MEDS: Z GUARD REMEDY PASTE 57 GM TUBE TOP SCH ×2 (08:36→21:41)
[2019-06-19] MEDS: PROTEIN SUPPLEMENT (PROSTAT) 30 ML LIQUID PEG SCH ×2 (08:36→21:41)
[2019-06-19] MEDS: HYDROGEN PEROXIDE 3% 118 ML BOTTLE TP SCH ×2 (10:00→20:58)
[2019-06-19] MEDS: ACETAMINOPHEN 650 MG/20 ML UDC- SA PATIENTS-PAIN ONLY PEG SCH (17:22)
[2019-06-19 20:56] VITALS: BP 108/60
[2019-06-20] MEDS: TWOCAL HN 1,000 ML LIQUID PEG PRN (05:11)
[2019-06-20] MEDS: MULTIVIT, IRON, MIN NO. 8, FA TABLET GT SCH (05:49)
[2019-06-20] MEDS: OMEPRAZOLE 20 MG CAPSULE.DR GT SCH (05:49)
[2019-06-20] MEDS: MIDODRINE 10 MG PEG SCH ×3 (05:49→21:06)
[2019-06-20] MEDS: NUTRISOURCE FIBER 4 GM PACKET PEG SCH ×2 (08:16→20:07)
[2019-06-20] MEDS: FERROUS SULFATE 330 MG/7.5 ML UDC- FOR SA ONLY GT SCH ×2 (08:16→20:07)
[2019-06-20] MEDS: Z GUARD REMEDY PASTE 57 GM TUBE TOP SCH ×2 (08:16→20:07)
[2019-06-20] MEDS: TIZANIDINE HCL 4 MG TABLET PEG SCH ×2 (08:16→17:06)
[2019-06-20] MEDS: PROTEIN SUPPLEMENT (PROSTAT) 30 ML LIQUID PEG SCH ×2 (08:16→20:07)
[2019-06-20] MEDS: HYDROGEN PEROXIDE 3% 118 ML BOTTLE TP SCH ×2 (09:00→21:21)
--- NOTE | 2019-06-20 09:58 | NUR ---
SEEN BY ALICIA COTTO N.P. AND WITH NNO.
[2019-06-20] MEDS: ACETAMINOPHEN 650 MG/20 ML UDC- SA PATIENTS-PAIN ONLY PEG SCH (17:06)
[2019-06-20 20:34] VITALS: BP 123/61
--- NOTE | 2019-06-20 21:07 | NUR ---
2200 MIDODRINE 10MG TABLET HELD DUE TO SBP GREATER THAN 110 ORDERED. BP: 123/61, HR: 71. WILL CONTINUE TO MONITOR.
[2019-06-21] MEDS: OMEPRAZOLE 20 MG CAPSULE.DR GT SCH (05:31)
[2019-06-21] MEDS: MIDODRINE 10 MG PEG SCH ×3 (05:31→21:04)
[2019-06-21] MEDS: BISACODYL 10 MG SUPP.RECT RC PRN (06:32)
[2019-06-21 08:00] VITALS: BP 107/64
[2019-06-21] MEDS: HYDROGEN PEROXIDE 3% 118 ML BOTTLE TP SCH ×2 (08:10→19:20)
[2019-06-21] MEDS: NUTRISOURCE FIBER 4 GM PACKET PEG SCH ×2 (08:33→20:05)
[2019-06-21] MEDS: PROTEIN SUPPLEMENT (PROSTAT) 30 ML LIQUID PEG SCH ×2 (08:33→20:05)
[2019-06-21] MEDS: FERROUS SULFATE 330 MG/7.5 ML UDC- FOR SA ONLY GT SCH ×2 (08:33→20:05)
[2019-06-21] MEDS: Z GUARD REMEDY PASTE 57 GM TUBE TOP SCH ×2 (08:33→20:05)
[2019-06-21] MEDS: TIZANIDINE HCL 4 MG TABLET PEG SCH ×2 (08:33→16:48)
--- NOTE | 2019-06-21 16:45 | NUR ---
Pt's mother had a face time with her daughter, with no complaints noted. Pt. remains comfortable and with no significant changes.
[2019-06-21] MEDS: ACETAMINOPHEN 650 MG/20 ML UDC- SA PATIENTS-PAIN ONLY PEG SCH (16:48)
[2019-06-21 19:48] VITALS: BP 128/69
--- NOTE | 2019-06-21 21:04 | NUR ---
2200 MIDODRINE 10MG TABLET HELD ORDERED DUE TO SBP GREATER THAN 110. BP: 128/69, HR: 81. WILL CONTINUE TO MONITOR.
--- NOTE | 2019-06-21 21:44 | NUR ---
Seen and examined by Marta Guerin NP with no new orders.
[2019-06-21] MEDS: TWOCAL HN 1,000 ML LIQUID PEG PRN (23:00)
[2019-06-22] MEDS: OMEPRAZOLE 20 MG CAPSULE.DR GT SCH (05:40)
[2019-06-22] MEDS: MIDODRINE 10 MG PEG SCH ×3 (05:40→21:08)
[2019-06-22] MEDS: MULTIVIT, IRON, MIN NO. 8, FA TABLET GT SCH (05:41)
[2019-06-22 08:05] VITALS: BP 113/62
[2019-06-22] MEDS: PROTEIN SUPPLEMENT (PROSTAT) 30 ML LIQUID PEG SCH ×2 (08:44→20:04)
[2019-06-22] MEDS: FERROUS SULFATE 330 MG/7.5 ML UDC- FOR SA ONLY GT SCH ×2 (08:44→20:04)
[2019-06-22] MEDS: TIZANIDINE HCL 4 MG TABLET PEG SCH ×2 (08:44→17:00)
[2019-06-22] MEDS: Z GUARD REMEDY PASTE 57 GM TUBE TOP SCH ×2 (08:44→20:04)
[2019-06-22] MEDS: NUTRISOURCE FIBER 4 GM PACKET PEG SCH ×2 (08:44→20:04)
[2019-06-22] MEDS: HYDROGEN PEROXIDE 3% 118 ML BOTTLE TP SCH ×2 (09:24→20:23)
--- NOTE | 2019-06-22 16:30 | NUR ---
Face time provided for the pt. and her mother, no complaints. Pt. remains comfortable and with no significant changes noted.
[2019-06-22] MEDS: ACETAMINOPHEN 650 MG/20 ML UDC- SA PATIENTS-PAIN ONLY PEG SCH (17:00)
[2019-06-22 20:04] VITALS: BP 111/74
[2019-06-23] MEDS: MIDODRINE 10 MG PEG SCH ×3 (05:44→22:17)
[2019-06-23] MEDS: OMEPRAZOLE 20 MG CAPSULE.DR GT SCH (05:44)
[2019-06-23 08:05] VITALS: BP 113/62
[2019-06-23] MEDS: FERROUS SULFATE 330 MG/7.5 ML UDC- FOR SA ONLY GT SCH ×2 (09:14→20:51)
[2019-06-23] MEDS: PROTEIN SUPPLEMENT (PROSTAT) 30 ML LIQUID PEG SCH ×2 (09:14→20:51)
[2019-06-23] MEDS: NUTRISOURCE FIBER 4 GM PACKET PEG SCH ×2 (09:14→20:51)
[2019-06-23] MEDS: Z GUARD REMEDY PASTE 57 GM TUBE TOP SCH ×2 (09:15→20:52)
[2019-06-23] MEDS: TIZANIDINE HCL 4 MG TABLET PEG SCH ×2 (09:15→16:34)
[2019-06-23] MEDS: HYDROGEN PEROXIDE 3% 118 ML BOTTLE TP SCH ×2 (09:15→21:07)
--- NOTE | 2019-06-23 10:24 | NUR ---
SEEN AND ASSESSED BY DR. LYNNE AND WITH NNO.
[2019-06-23] MEDS: ACETAMINOPHEN 650 MG/20 ML UDC- SA PATIENTS-PAIN ONLY PEG SCH (16:33)
[2019-06-23 19:58] VITALS: BP 91/56
[2019-06-23 22:00] VITALS: BP 97/58
[2019-06-24] MEDS: TWOCAL HN 1,000 ML LIQUID PEG PRN (05:00)
[2019-06-24] MEDS: OMEPRAZOLE 20 MG CAPSULE.DR GT SCH (05:15)
[2019-06-24] MEDS: MIDODRINE 10 MG PEG SCH ×3 (05:15→21:17)
[2019-06-24] MEDS: MULTIVIT, IRON, MIN NO. 8, FA TABLET GT SCH (05:16)
[2019-06-24 05:17] VITALS: BP 100/52
[2019-06-24 08:03] VITALS: BP 119/71
[2019-06-24] MEDS: FERROUS SULFATE 330 MG/7.5 ML UDC- FOR SA ONLY GT SCH ×2 (08:57→20:23)
[2019-06-24] MEDS: NUTRISOURCE FIBER 4 GM PACKET PEG SCH ×2 (08:57→20:23)
[2019-06-24] MEDS: Z GUARD REMEDY PASTE 57 GM TUBE TOP SCH ×2 (08:58→20:23)
[2019-06-24] MEDS: TIZANIDINE HCL 4 MG TABLET PEG SCH ×2 (08:58→16:59)
[2019-06-24] MEDS: PROTEIN SUPPLEMENT (PROSTAT) 30 ML LIQUID PEG SCH ×2 (08:58→20:23)
[2019-06-24] MEDS: HYDROGEN PEROXIDE 3% 118 ML BOTTLE TP SCH ×2 (09:43→21:13)
[2019-06-24] MEDS: ACETAMINOPHEN 650 MG/20 ML UDC- SA PATIENTS-PAIN ONLY PEG SCH (16:59)
[2019-06-24] MEDS: DOCUSATE SODIUM 100 MG/10 ML LIQUID UDC GT PRN (18:59)
[2019-06-24] MEDS: BISACODYL 10 MG SUPP.RECT RC PRN (19:01)
[2019-06-24] MEDS: TRIAMCINOLONE ACET 0.1% OINT 15 GM TUBE TP PRN (19:03)
[2019-06-24 20:18] VITALS: BP 101/50
[2019-06-25] MEDS: MIDODRINE 10 MG PEG SCH ×3 (05:11→21:46)
[2019-06-25] MEDS: OMEPRAZOLE 20 MG CAPSULE.DR GT SCH (05:11)
[2019-06-25] MEDS: FERROUS SULFATE 330 MG/7.5 ML UDC- FOR SA ONLY GT SCH ×2 (08:54→21:45)
[2019-06-25] MEDS: Z GUARD REMEDY PASTE 57 GM TUBE TOP SCH ×2 (08:55→21:46)
[2019-06-25] MEDS: NUTRISOURCE FIBER 4 GM PACKET PEG SCH ×2 (08:55→21:45)
[2019-06-25] MEDS: PROTEIN SUPPLEMENT (PROSTAT) 30 ML LIQUID PEG SCH ×2 (08:55→21:46)
[2019-06-25] MEDS: TIZANIDINE HCL 4 MG TABLET PEG SCH ×2 (08:55→16:46)
[2019-06-25] MEDS: HYDROGEN PEROXIDE 3% 118 ML BOTTLE TP SCH ×2 (09:40→21:37)
[2019-06-25 16:45] VITALS: BP 106/58
[2019-06-25] MEDS: ACETAMINOPHEN 650 MG/20 ML UDC- SA PATIENTS-PAIN ONLY PEG SCH (16:46)
[2019-06-25 20:24] VITALS: BP 107/57
[2019-06-26 05:30] VITALS: BP 89/57
[2019-06-26] MEDS: MULTIVIT, IRON, MIN NO. 8, FA TABLET GT SCH (05:48)
[2019-06-26] MEDS: OMEPRAZOLE 20 MG CAPSULE.DR GT SCH (05:48)
[2019-06-26] MEDS: MIDODRINE 10 MG PEG SCH ×3 (05:48→22:12)
[2019-06-26 07:30] VITALS: BP 110/50
[2019-06-26] MEDS: HYDROGEN PEROXIDE 3% 118 ML BOTTLE TP SCH ×2 (08:31→21:09)
[2019-06-26] MEDS: Z GUARD REMEDY PASTE 57 GM TUBE TOP SCH ×2 (09:36→21:00)
[2019-06-26] MEDS: TIZANIDINE HCL 4 MG TABLET PEG SCH ×2 (09:36→16:10)
[2019-06-26] MEDS: NUTRISOURCE FIBER 4 GM PACKET PEG SCH ×2 (09:36→21:00)
[2019-06-26] MEDS: PROTEIN SUPPLEMENT (PROSTAT) 30 ML LIQUID PEG SCH ×2 (09:36→21:00)
[2019-06-26] MEDS: FERROUS SULFATE 330 MG/7.5 ML UDC- FOR SA ONLY GT SCH ×2 (09:41→21:00)
[2019-06-26] MEDS: ACETAMINOPHEN 650 MG/20 ML UDC- SA PATIENTS-PAIN ONLY PEG SCH (16:10)
--- NOTE | 2019-06-26 16:38 | NUR ---
2:10pm: JEY called patient's mother Morena [phone], in response to an email Morena had sent this SW. JEY was able to connect with Morena, and Morena was receptive to talking to this SW. Morena wanted to discuss some of the things she had been seeing in the media regarding LTC facilities and the spread of COVID-19. This SW allowed Morena to express her thoughts and feelings, validated Morena's feelings, and assured Morena that the facility continues to take all necessary precautions to ensure the safety of the patients and the staff. Morena expressed gratitude to this SW for "giving me some piece of mind", and stated "I'm glad to hear that everyone is doing well there. SW then checked in with Morena to see how she was doing, and whether she needed any community resources for herself. Morena stated she was doing well, and had everything she needed. Morena stated she was doing little projects throughout the house to keep herself busy, and was in constant communication with her son, who is supportive of her. SW reminded Morena to continue to use phone calls and FaceTime as a way to remain in contact with the patient, and Morena said that she was greatly for the FaceTime because "I can see that my daughter is well". Morena thanked this SW for her time. SW reminded Morena that SW is available for any further questions or concerns she may have, and Morena expressed understanding.
[2019-06-26 20:12] VITALS: BP 105/67
[2019-06-27] MEDS: OMEPRAZOLE 20 MG CAPSULE.DR GT SCH (05:17)
[2019-06-27 05:18] VITALS: BP 110/63
[2019-06-27] MEDS: MIDODRINE 10 MG PEG SCH ×3 (05:18→22:18)
[2019-06-27] MEDS: Z GUARD REMEDY PASTE 57 GM TUBE TOP SCH ×2 (08:42→21:00)
[2019-06-27] MEDS: PROTEIN SUPPLEMENT (PROSTAT) 30 ML LIQUID PEG SCH ×2 (08:42→21:00)
[2019-06-27] MEDS: TIZANIDINE HCL 4 MG TABLET PEG SCH ×2 (08:42→17:36)
[2019-06-27] MEDS: NUTRISOURCE FIBER 4 GM PACKET PEG SCH ×2 (08:42→21:00)
[2019-06-27] MEDS: FERROUS SULFATE 330 MG/7.5 ML UDC- FOR SA ONLY GT SCH ×2 (08:42→21:00)
[2019-06-27 08:45] VITALS: BP 124/72
[2019-06-27] MEDS: HYDROGEN PEROXIDE 3% 118 ML BOTTLE TP SCH ×2 (09:14→21:17)
--- NOTE | 2019-06-27 15:00 | NUR ---
nursing notes: provided facetime for patient with mother.
[2019-06-27 15:13] VITALS: BP 102/68
[2019-06-27] MEDS: BISACODYL 10 MG SUPP.RECT RC PRN (15:55)
[2019-06-27] MEDS: ACETAMINOPHEN 650 MG/20 ML UDC- SA PATIENTS-PAIN ONLY PEG SCH (17:36)
[2019-06-27 22:00] VITALS: BP 90/47
[2019-06-28] MEDS: MIDODRINE 10 MG PEG SCH ×3 (05:15→21:45)
[2019-06-28] MEDS: OMEPRAZOLE 20 MG CAPSULE.DR GT SCH (05:15)
[2019-06-28] MEDS: TWOCAL HN 1,000 ML LIQUID PEG PRN (05:15)
[2019-06-28] MEDS: MULTIVIT, IRON, MIN NO. 8, FA TABLET GT SCH (06:21)
[2019-06-28 06:22] VITALS: BP 100/53
[2019-06-28] MEDS: HYDROGEN PEROXIDE 3% 118 ML BOTTLE TP SCH ×2 (07:55→21:23)
[2019-06-28] MEDS: TIZANIDINE HCL 4 MG TABLET PEG SCH ×2 (08:00→16:25)
[2019-06-28] MEDS: FERROUS SULFATE 330 MG/7.5 ML UDC- FOR SA ONLY GT SCH ×2 (08:00→21:45)
[2019-06-28] MEDS: NUTRISOURCE FIBER 4 GM PACKET PEG SCH ×2 (08:00→21:45)
[2019-06-28] MEDS: PROTEIN SUPPLEMENT (PROSTAT) 30 ML LIQUID PEG SCH ×2 (08:00→21:45)
[2019-06-28] MEDS: Z GUARD REMEDY PASTE 57 GM TUBE TOP SCH ×2 (08:01→21:45)
[2019-06-28 08:02] VITALS: BP 119/57
[2019-06-28 14:17] VITALS: BP 111/70
--- NOTE | 2019-06-28 15:40 | NUR ---
nursing notes: provided facetime for patient with mother. patient stable, no signs of pain or distress noted at this time.
[2019-06-28] MEDS: ACETAMINOPHEN 650 MG/20 ML UDC- SA PATIENTS-PAIN ONLY PEG SCH (16:25)
[2019-06-28 22:33] VITALS: BP 98/54
[2019-06-29] MEDS: MIDODRINE 10 MG PEG SCH ×3 (05:12→21:16)
[2019-06-29] MEDS: OMEPRAZOLE 20 MG CAPSULE.DR GT SCH (05:12)
[2019-06-29 05:47] VITALS: BP 100/64
[2019-06-29 08:00] VITALS: BP 109/60
[2019-06-29] MEDS: FERROUS SULFATE 330 MG/7.5 ML UDC- FOR SA ONLY GT SCH ×2 (08:27→21:16)
[2019-06-29] MEDS: NUTRISOURCE FIBER 4 GM PACKET PEG SCH ×2 (08:27→21:16)
[2019-06-29] MEDS: PROTEIN SUPPLEMENT (PROSTAT) 30 ML LIQUID PEG SCH ×2 (08:28→21:16)
[2019-06-29] MEDS: Z GUARD REMEDY PASTE 57 GM TUBE TOP SCH ×2 (08:28→21:16)
[2019-06-29] MEDS: TIZANIDINE HCL 4 MG TABLET PEG SCH ×2 (08:28→17:00)
[2019-06-29] MEDS: HYDROGEN PEROXIDE 3% 118 ML BOTTLE TP SCH ×2 (09:25→21:46)
[2019-06-29] MEDS: ACETAMINOPHEN 650 MG/20 ML UDC- SA PATIENTS-PAIN ONLY PEG SCH (17:00)
[2019-06-29 22:53] VITALS: BP 90/46
[2019-06-30] MEDS: OMEPRAZOLE 20 MG CAPSULE.DR GT SCH (05:21)
[2019-06-30] MEDS: TWOCAL HN 1,000 ML LIQUID PEG PRN (05:21)
[2019-06-30] MEDS: MIDODRINE 10 MG PEG SCH ×3 (05:21→21:26)
[2019-06-30] MEDS: MULTIVIT, IRON, MIN NO. 8, FA TABLET GT SCH (05:40)
[2019-06-30 08:00] VITALS: BP 101/62
[2019-06-30] MEDS: TIZANIDINE HCL 4 MG TABLET PEG SCH ×2 (08:52→16:31)
[2019-06-30] MEDS: NUTRISOURCE FIBER 4 GM PACKET PEG SCH ×2 (08:52→20:18)
[2019-06-30] MEDS: PROTEIN SUPPLEMENT (PROSTAT) 30 ML LIQUID PEG SCH ×2 (08:52→20:18)
[2019-06-30] MEDS: Z GUARD REMEDY PASTE 57 GM TUBE TOP SCH ×2 (08:52→20:18)
[2019-06-30] MEDS: FERROUS SULFATE 330 MG/7.5 ML UDC- FOR SA ONLY GT SCH ×2 (08:52→20:18)
[2019-06-30] MEDS: HYDROGEN PEROXIDE 3% 118 ML BOTTLE TP SCH ×2 (09:51→21:13)
[2019-06-30 14:28] VITALS: BP 120/71
[2019-06-30] MEDS: ACETAMINOPHEN 650 MG/20 ML UDC- SA PATIENTS-PAIN ONLY PEG SCH (16:31)
[2019-06-30 20:24] VITALS: BP 134/68
[2019-07-01] MEDS: OMEPRAZOLE 20 MG CAPSULE.DR GT SCH (05:11)
[2019-07-01] MEDS: MIDODRINE 10 MG PEG SCH ×3 (05:11→21:45)
[2019-07-01] MEDS: TIZANIDINE HCL 4 MG TABLET PEG SCH ×2 (08:03→17:25)
[2019-07-01] MEDS: NUTRISOURCE FIBER 4 GM PACKET PEG SCH ×2 (08:03→21:45)
[2019-07-01] MEDS: FERROUS SULFATE 330 MG/7.5 ML UDC- FOR SA ONLY GT SCH ×2 (08:03→21:45)
[2019-07-01] MEDS: Z GUARD REMEDY PASTE 57 GM TUBE TOP SCH ×2 (08:03→21:45)
[2019-07-01] MEDS: PROTEIN SUPPLEMENT (PROSTAT) 30 ML LIQUID PEG SCH ×2 (08:03→21:45)
[2019-07-01 08:05] VITALS: BP 115/58
[2019-07-01] MEDS: HYDROGEN PEROXIDE 3% 118 ML BOTTLE TP SCH ×2 (09:00→20:28)
--- NOTE | 2019-07-01 16:04 | NUR ---
JEY notified patient's mother Morena via email that the next IDT meeting for the patient has been scheduled for 07/08/2019 at 11am. JEY asked Morena to respond to this SW and let her know if Morena would like to participate in the meeting via conference call. JEY waiting to hear back from Morena.
[2019-07-01] MEDS: ACETAMINOPHEN 650 MG/20 ML UDC- SA PATIENTS-PAIN ONLY PEG SCH (17:25)
[2019-07-01 22:08] VITALS: BP 97/60
[2019-07-02] MEDS: OMEPRAZOLE 20 MG CAPSULE.DR GT SCH (05:23)
[2019-07-02] MEDS: MIDODRINE 10 MG PEG SCH ×3 (05:23→21:39)
[2019-07-02 05:24] VITALS: BP 99/59
[2019-07-02] MEDS: MULTIVIT, IRON, MIN NO. 8, FA TABLET GT SCH (05:31)
[2019-07-02] MEDS: TWOCAL HN 1,000 ML LIQUID PEG PRN (05:31)
[2019-07-02 08:00] VITALS: BP 119/60
[2019-07-02] MEDS: FERROUS SULFATE 330 MG/7.5 ML UDC- FOR SA ONLY GT SCH ×2 (08:26→21:37)
[2019-07-02] MEDS: NUTRISOURCE FIBER 4 GM PACKET PEG SCH ×2 (08:27→21:37)
[2019-07-02] MEDS: TIZANIDINE HCL 4 MG TABLET PEG SCH ×2 (08:27→17:32)
[2019-07-02] MEDS: PROTEIN SUPPLEMENT (PROSTAT) 30 ML LIQUID PEG SCH ×2 (08:27→21:37)
[2019-07-02] MEDS: Z GUARD REMEDY PASTE 57 GM TUBE TOP SCH ×2 (08:29→21:39)
[2019-07-02] MEDS: HYDROGEN PEROXIDE 3% 118 ML BOTTLE TP SCH ×2 (09:50→21:16)
[2019-07-02 14:07] VITALS: BP 96/54
[2019-07-02] MEDS: ACETAMINOPHEN 650 MG/20 ML UDC- SA PATIENTS-PAIN ONLY PEG SCH (17:32)
[2019-07-02 20:00] VITALS: BP 107/61
[2019-07-03 05:00] VITALS: BP 118/63
[2019-07-03] MEDS: MIDODRINE 10 MG PEG SCH ×3 (06:03→21:46)
[2019-07-03] MEDS: OMEPRAZOLE 20 MG CAPSULE.DR GT SCH (06:03)
[2019-07-03] MEDS: HYDROGEN PEROXIDE 3% 118 ML BOTTLE TP SCH ×2 (07:45→21:08)
[2019-07-03] MEDS: FERROUS SULFATE 330 MG/7.5 ML UDC- FOR SA ONLY GT SCH ×2 (08:00→21:46)
[2019-07-03] MEDS: NUTRISOURCE FIBER 4 GM PACKET PEG SCH ×2 (08:01→21:46)
[2019-07-03] MEDS: TIZANIDINE HCL 4 MG TABLET PEG SCH ×2 (08:01→17:03)
[2019-07-03] MEDS: Z GUARD REMEDY PASTE 57 GM TUBE TOP SCH ×2 (08:01→21:46)
[2019-07-03] MEDS: PROTEIN SUPPLEMENT (PROSTAT) 30 ML LIQUID PEG SCH ×2 (08:01→21:46)
--- NOTE | 2019-07-03 12:02 | NUR ---
JEY received an email from patient's mother Morena, in response to the email this JEY had sent Morena yesterday notifying her of the IDT meeting. Morena stated that she had no concerns or questions at this time for the meeting, and was very appreciative of everything the staff was doing to take care of the patient during this time that Morena is not able to visit.
[2019-07-03 14:21] VITALS: BP 98/51
--- NOTE | 2019-07-03 16:17 | NUR ---
Provided FT for pt with mother, Morena.
[2019-07-03] MEDS: ACETAMINOPHEN 650 MG/20 ML UDC- SA PATIENTS-PAIN ONLY PEG SCH (17:03)
[2019-07-03 20:00] VITALS: BP_SYST 113
[2019-07-04] MEDS: TWOCAL HN 1,000 ML LIQUID PEG PRN (04:28)
[2019-07-04] MEDS: OMEPRAZOLE 20 MG CAPSULE.DR GT SCH (05:57)
[2019-07-04] MEDS: MIDODRINE 10 MG PEG SCH ×3 (05:57→21:09)
[2019-07-04 05:58] VITALS: BP 130/78
[2019-07-04] MEDS: MULTIVIT, IRON, MIN NO. 8, FA TABLET GT SCH (05:58)
[2019-07-04 08:04] VITALS: BP 107/69
[2019-07-04] MEDS: Z GUARD REMEDY PASTE 57 GM TUBE TOP SCH ×2 (08:31→20:06)
[2019-07-04] MEDS: HYDROGEN PEROXIDE 3% 118 ML BOTTLE TP SCH ×2 (08:31→21:23)
[2019-07-04] MEDS: NUTRISOURCE FIBER 4 GM PACKET PEG SCH ×2 (08:31→20:06)
[2019-07-04] MEDS: PROTEIN SUPPLEMENT (PROSTAT) 30 ML LIQUID PEG SCH ×2 (08:31→20:06)
[2019-07-04] MEDS: TIZANIDINE HCL 4 MG TABLET PEG SCH ×2 (08:32→16:43)
[2019-07-04] MEDS: FERROUS SULFATE 330 MG/7.5 ML UDC- FOR SA ONLY GT SCH ×2 (08:33→20:06)
[2019-07-04] MEDS: ACETAMINOPHEN 650 MG/20 ML UDC- SA PATIENTS-PAIN ONLY PEG SCH (16:41)
[2019-07-04 20:10] VITALS: BP 131/75
--- NOTE | 2019-07-04 21:10 | NUR ---
2200 MIDODRINE 10MG TABLET HELD ORDERED DUE TO SBP GREATER THAN 110. BP" 131/75, HR: 88. WILL CONTINUE TO MONITOR.
[2019-07-05] MEDS: OMEPRAZOLE 20 MG CAPSULE.DR GT SCH (05:28)
[2019-07-05] MEDS: MIDODRINE 10 MG PEG SCH ×3 (05:28→21:08)
[2019-07-05 07:44] VITALS: BP 99/55
[2019-07-05] MEDS: FERROUS SULFATE 330 MG/7.5 ML UDC- FOR SA ONLY GT SCH ×2 (08:24→20:08)
[2019-07-05] MEDS: Z GUARD REMEDY PASTE 57 GM TUBE TOP SCH ×2 (08:24→20:08)
[2019-07-05] MEDS: NUTRISOURCE FIBER 4 GM PACKET PEG SCH ×2 (08:24→20:08)
[2019-07-05] MEDS: PROTEIN SUPPLEMENT (PROSTAT) 30 ML LIQUID PEG SCH ×2 (08:24→20:08)
[2019-07-05] MEDS: TIZANIDINE HCL 4 MG TABLET PEG SCH ×2 (08:24→17:06)
[2019-07-05] MEDS: HYDROGEN PEROXIDE 3% 118 ML BOTTLE TP SCH ×2 (09:00→20:51)
--- NOTE | 2019-07-05 14:10 | NUR ---
Provided face time for pt. and her mother with no complaints noted. Pt. remains comfortable and with signs of pain noted.
[2019-07-05] MEDS: ACETAMINOPHEN 650 MG/20 ML UDC- SA PATIENTS-PAIN ONLY PEG SCH (17:06)
[2019-07-05 19:45] VITALS: BP 120/64
--- NOTE | 2019-07-05 21:08 | NUR ---
2200 MIDODRINE 10MG TABLET HELD ORDERED DUE TO SBP GREATER THAN 110. BP: 120/64, HR: 76. WILL CONTINUE TO MONITOR.
[2019-07-06] MEDS: TWOCAL HN 1,000 ML LIQUID PEG PRN (03:11)
[2019-07-06] MEDS: OMEPRAZOLE 20 MG CAPSULE.DR GT SCH (05:41)
[2019-07-06] MEDS: MIDODRINE 10 MG PEG SCH ×3 (05:41→21:12)
[2019-07-06] MEDS: MULTIVIT, IRON, MIN NO. 8, FA TABLET GT SCH (05:41)
--- NOTE | 2019-07-06 05:41 | NUR ---
0600 MIDODRINE 10MG TABLET HELD ORDERED DUE TO SBP GREATER THAN 110. BP: 111/74, HR:82. WILL CONTINUE TO MONITOR.
[2019-07-06 08:00] VITALS: BP 110/58
[2019-07-06] MEDS: HYDROGEN PEROXIDE 3% 118 ML BOTTLE TP SCH ×2 (09:00→21:17)
[2019-07-06] MEDS: Z GUARD REMEDY PASTE 57 GM TUBE TOP SCH ×2 (09:24→20:04)
[2019-07-06] MEDS: PROTEIN SUPPLEMENT (PROSTAT) 30 ML LIQUID PEG SCH ×2 (09:24→20:04)
[2019-07-06] MEDS: NUTRISOURCE FIBER 4 GM PACKET PEG SCH ×2 (09:24→20:04)
[2019-07-06] MEDS: TIZANIDINE HCL 4 MG TABLET PEG SCH ×2 (09:27→16:34)
[2019-07-06] MEDS: FERROUS SULFATE 330 MG/7.5 ML UDC- FOR SA ONLY GT SCH ×2 (09:29→20:04)
[2019-07-06 13:52] VITALS: BP 104/65
--- NOTE | 2019-07-06 16:31 | NUR ---
Pt able to Skype with Mother. All needs attended to promptly. Will continue to monitor.
[2019-07-06] MEDS: ACETAMINOPHEN 650 MG/20 ML UDC- SA PATIENTS-PAIN ONLY PEG SCH (16:35)
[2019-07-06 19:55] VITALS: BP 121/75
--- NOTE | 2019-07-06 21:13 | NUR ---
2200 MIDODRINE 10MG TABLET HELD ORDERED DUE TO SBP GREATER THAN 110. BP: 121/75, HR: 69. WILL CONTINUE TO MONITOR.
[2019-07-06 22:33] VITALS: BP 131/76
[2019-07-07] VITALS (11 sets, daily range): BP systolic 98–130; BP diastolic 65–77
[2019-07-07] MEDS: OMEPRAZOLE 20 MG CAPSULE.DR GT SCH (05:28)
[2019-07-07] MEDS: MIDODRINE 10 MG PEG SCH ×4 (05:28→21:20)
[2019-07-07] MEDS: HYDROGEN PEROXIDE 3% 118 ML BOTTLE TP SCH ×2 (09:00→21:18)
[2019-07-07] MEDS: PROTEIN SUPPLEMENT (PROSTAT) 30 ML LIQUID PEG SCH ×2 (09:20→21:18)
[2019-07-07] MEDS: TIZANIDINE HCL 4 MG TABLET PEG SCH ×2 (09:20→18:00)
[2019-07-07] MEDS: NUTRISOURCE FIBER 4 GM PACKET PEG SCH ×2 (09:20→21:18)
[2019-07-07] MEDS: FERROUS SULFATE 330 MG/7.5 ML UDC- FOR SA ONLY GT SCH ×2 (09:20→21:18)
[2019-07-07] MEDS: Z GUARD REMEDY PASTE 57 GM TUBE TOP SCH ×2 (09:20→21:18)
[2019-07-07] MEDS: ACETAMINOPHEN 650 MG/20 ML UDC- SA PATIENTS-PAIN ONLY PEG SCH (18:00)
[2019-07-08] MEDS: OMEPRAZOLE 20 MG CAPSULE.DR GT SCH (05:20)
[2019-07-08] MEDS: MIDODRINE 10 MG PEG SCH ×3 (05:20→21:51)
[2019-07-08] MEDS: MULTIVIT, IRON, MIN NO. 8, FA TABLET GT SCH (05:48)
[2019-07-08 08:00] VITALS: BP 116/74
[2019-07-08] MEDS: TIZANIDINE HCL 4 MG TABLET PEG SCH ×2 (08:33→16:59)
[2019-07-08] MEDS: PROTEIN SUPPLEMENT (PROSTAT) 30 ML LIQUID PEG SCH ×2 (08:33→21:51)
[2019-07-08] MEDS: FERROUS SULFATE 330 MG/7.5 ML UDC- FOR SA ONLY GT SCH ×2 (08:33→21:51)
[2019-07-08] MEDS: NUTRISOURCE FIBER 4 GM PACKET PEG SCH ×2 (08:33→21:51)
[2019-07-08] MEDS: Z GUARD REMEDY PASTE 57 GM TUBE TOP SCH ×2 (08:33→21:51)
[2019-07-08] MEDS: HYDROGEN PEROXIDE 3% 118 ML BOTTLE TP SCH ×2 (09:00→21:24)
[2019-07-08 14:10] VITALS: BP 114/63
[2019-07-08] MEDS: TWOCAL HN 1,000 ML LIQUID PEG PRN (14:28)
--- NOTE | 2019-07-08 14:40 | NUR ---
INTERDISCIPLINARY PLAN OF CARE CONFERENCE was held today. Patient's mother informed this SW that she had no concerns and therefore did not participate in the meeting. Dr. Caraballo and the Interdisciplinary Team reviewed the current plan of care in detail. RN reported on patient's medical condition. See RN IDT conference notes. No major changes in condition were reported. See also all other disciplines IDT notes and physician's progress notes for additional details.
--- NOTE | 2019-07-08 15:27 | NUR ---
Pharmacy Update from Today's 07/08/19 IDT Meeting VS: Temp 98.2 BP 114/68 HR 81 LABS: (from 09/13/18, no new labs) Wbc 8.5 H/H 13/39.5 Plt 226 Na 137 K 3.9 Cl 102 CO2 27 BUN/SCr 12/0.5 BS 90 Ca 8.7 phos 3.3 Mg 2.1 MEDICATION USE REVIEWED: > Pt not on any anti-epileptic or anti-psych medications > Pt on Midodrine 10mg q8hr ATC with parameters for hold SBP >110 > PRN MED USAGE: (May) Tylenol for pain used x 0 Tylenol for temp used x 0 Artificial tears used x 2 Docusate PRN x 1 Bisacodyl PRN used x 2 Benadryl PRN used x 0 (for resolved rxn from family's moisterizer while OOP) NEW ORDERS NOTED: > NA Patient reviewed and discussed at IDT with no medication issues at this time, remains stable on current medications. No further recommendations per rx at this time. Will continue to follow
[2019-07-08] MEDS: ACETAMINOPHEN 650 MG/20 ML UDC- SA PATIENTS-PAIN ONLY PEG SCH (16:59)
[2019-07-08 20:07] VITALS: BP 113/68
--- NOTE | 2019-07-08 21:52 | NUR ---
Midodrine 10mg held b/p 113/68
[2019-07-09] MEDS: ACETAMINOPHEN 650 MG/20 ML UDC- SA PATIENTS-PAIN ONLY PEG PRN ×2 (03:30→08:36)
[2019-07-09] MEDS: MIDODRINE 10 MG PEG SCH ×3 (05:54→21:58)
[2019-07-09] MEDS: OMEPRAZOLE 20 MG CAPSULE.DR GT SCH (05:54)
[2019-07-09 08:00] VITALS: BP 121/76
--- NOTE | 2019-07-09 08:00 | NUR ---
patient in bed with one coughing episode noted, temperature 97.6 at this time. no sob noted,saturation 99%. will continue monitoring.
--- NOTE | 2019-07-09 08:00 | NUR ---
Reported by the night nurse Tic ,noted pt has some cough during the night will report to Dr sierra.
[2019-07-09] MEDS: PROTEIN SUPPLEMENT (PROSTAT) 30 ML LIQUID PEG SCH ×2 (08:35→21:58)
[2019-07-09] MEDS: NUTRISOURCE FIBER 4 GM PACKET PEG SCH ×2 (08:35→21:58)
[2019-07-09] MEDS: TIZANIDINE HCL 4 MG TABLET PEG SCH ×2 (08:35→16:52)
[2019-07-09] MEDS: FERROUS SULFATE 330 MG/7.5 ML UDC- FOR SA ONLY GT SCH ×2 (08:35→21:58)
[2019-07-09] MEDS: Z GUARD REMEDY PASTE 57 GM TUBE TOP SCH ×2 (08:35→21:58)
[2019-07-09] MEDS: HYDROGEN PEROXIDE 3% 118 ML BOTTLE TP SCH ×2 (09:00→20:49)
--- NOTE | 2019-07-09 09:00 | NUR ---
Dr Wu aware of pt condition,episodes of cough ,with new orders noted and carried out.
--- NOTE | 2019-07-09 09:30 | NUR ---
Spoke to nabil Pt's mom regarding pt condition,with on and off cough,increase HR ,and temp 99.2 last night,aware of Dr Wu's new orders,she agreed with the plan of care.
[2019-07-09 09:52] LABS: BASOPHILS % (AUTO) 0.4 % (0.0-2.0); EOSINOPHILS % (AUTO) 0.4 % (0.0-7.0); HEMOGLOBIN 13.1 g/dL (10.9-14.3); LYMPHOCYTES # (AUTO) 1.2 K/uL (20.0-40.0); LYMPHOCYTES % (AUTO) 15.6 % (20.5-51.5); MEAN CORPUSCULAR HEMOGLOBIN 31.5 uug (24.7-32.8); MEAN CORPUSCULAR HGB CONC 34 g/dL (32.3-35.6); MONOCYTES # (AUTO) 0.5 K/uL (2.0-10.0); NEUTROPHILS # (AUTO) 5.7 K/uL (1.8-8.9); NEUTROPHILS % (AUTO) 76.6 % (38.5-71.5); PLATELET COUNT (AUTO) 219 K/uL (179-408); RED BLOOD CELL COUNT(AUTO) 4.15 MIL/uL (3.63-4.92); WHITE BLOOD COUNT (AUTO) 7.5 K/uL (3.8-11.8)
[2019-07-09 10:50] LABS: BILIRUBIN,TOTAL 0.7 mg/dL (0.2-1.0); CREATININE 0.6 mg/dL (0.6-1.3); POTASSIUM 3.5 mmol/L (3.5-5.1); TOTAL PROTEIN, SERUM 7.5 g/dL (6.4-8.2)
[2019-07-09] MEDS: TRIAMCINOLONE ACET 0.1% OINT 15 GM TUBE TP PRN (10:56)
[2019-07-09] MEDS: POLYVINYL ALCOHOL OPHT DROPS 15 ML BOTTLE EACHEYE PRN (10:56)
[2019-07-09 11:13] LABS: *BILIRUBIN,URIN NEGATIVE (NEGATIVE); *BLOOD, URINE NEGATIVE (NEGATIVE); *CLARITY,URINE CLEAR (CLEAR); *COLOR,URINE YELLOW (YELLOW); *KETONES,URINE NEGATIVE (NEGATIVE); LEUKOCYTE ESTERASE ,URINE NEGATIVE (NEGATIVE); NITRITE, URINE NEGATIVE (NEGATIVE); UGLUCOSE NEGATIVE (NEGATIVE)
[2019-07-09 11:25] LABS: BACTERIA,URINE NONE SEEN /HPF (NONE SEEN); RBC,URINE 0-3 /HPF (0-3); SQUAMOUS EPITHELIAL CELL,UR FEW /HPF (NONE SEEN); URINE AMORPHOUS URATE FEW /HPF; WBC,URINE 0-3 /HPF (0-3)
[2019-07-09 11:26] LABS: MUCUS,URINE FEW /LPF (0-FEW)
--- NOTE | 2019-07-09 13:39 | NUR ---
11:16am: JEY received a call from patient's mother Morena [phone], who expressed "I'm not too well today" after learning from the nurse that patient has a low grade fever today and a cough (see RN notes). Morena expressed the need to reach out to this SW just to express her feelings and for some social support. SW allowed Morena to express her feelings, validated Morena's feelings, and also provided supportive counseling. Morena inquired about what testing will be done for the patient in order to identify the reason for her fever and cough. JEY stated that SW was informed by nursing that the patient's doctor was aware of patient's symptoms and that the doctor has orders test that the doctor felt were necessary at this time, and that nursing would contact Morena with all test results once they were completed. Morena expressed understanding and agreement. Morena also thanked SW for her time, and expressed feeling better and supported after having the opportunity to speak with this SW. SW reminded Morena that SW is available for ongoing support, as needed, and Morena expressed understanding and thanked this SW. SW also to follow-up, as needed.
[2019-07-09 14:00] VITALS: BP 109/70
--- NOTE | 2019-07-09 14:14 | NUR ---
Dr Wu aware of the labs results,and CXR result,no new orders noted.Spoke to Morena,pt's mom aware of the cxr and labs results,and aware we going to monitor closely.
[2019-07-09] MEDS: ACETAMINOPHEN 650 MG/20 ML UDC- SA PATIENTS-PAIN ONLY PEG SCH (16:53)
--- NOTE | 2019-07-09 18:30 | NUR ---
patient's temperature 98.8, HR 91, no sob noted, no coughing episode noted at this time. will continue monitoring.
[2019-07-09 20:03] VITALS: BP 97/59
[2019-07-10] MEDS: TWOCAL HN 1,000 ML LIQUID PEG PRN (06:00)
[2019-07-10] MEDS: OMEPRAZOLE 20 MG CAPSULE.DR GT SCH (06:08)
[2019-07-10] MEDS: MIDODRINE 10 MG PEG SCH ×3 (06:08→22:09)
[2019-07-10] MEDS: MULTIVIT, IRON, MIN NO. 8, FA TABLET GT SCH (06:09)
[2019-07-10 08:00] VITALS: BP 103/59
[2019-07-10] MEDS: PROTEIN SUPPLEMENT (PROSTAT) 30 ML LIQUID PEG SCH ×2 (08:35→21:00)
[2019-07-10] MEDS: NUTRISOURCE FIBER 4 GM PACKET PEG SCH ×2 (08:35→21:00)
[2019-07-10] MEDS: HYDROGEN PEROXIDE 3% 118 ML BOTTLE TP SCH ×2 (08:35→20:47)
[2019-07-10] MEDS: Z GUARD REMEDY PASTE 57 GM TUBE TOP SCH ×2 (08:35→21:00)
[2019-07-10] MEDS: FERROUS SULFATE 330 MG/7.5 ML UDC- FOR SA ONLY GT SCH ×2 (08:35→21:00)
[2019-07-10] MEDS: TIZANIDINE HCL 4 MG TABLET PEG SCH ×2 (08:36→17:15)
[2019-07-10] MEDS: ACETAMINOPHEN 650 MG/20 ML UDC- SA PATIENTS-PAIN ONLY PEG SCH (17:15)
[2019-07-10 20:07] VITALS: BP 104/61
[2019-07-11] MEDS: OMEPRAZOLE 20 MG CAPSULE.DR GT SCH (05:24)
[2019-07-11] MEDS: MIDODRINE 10 MG PEG SCH ×3 (05:25→21:28)
--- NOTE | 2019-07-11 05:27 | NUR ---
held jono b/p 115/62
[2019-07-11 08:03] VITALS: BP 105/64
[2019-07-11 08:05] VITALS: BP 101/57
[2019-07-11] MEDS: Z GUARD REMEDY PASTE 57 GM TUBE TOP SCH ×2 (08:28→20:51)
[2019-07-11] MEDS: NUTRISOURCE FIBER 4 GM PACKET PEG SCH ×2 (08:28→20:51)
[2019-07-11] MEDS: FERROUS SULFATE 330 MG/7.5 ML UDC- FOR SA ONLY GT SCH ×2 (08:28→20:50)
[2019-07-11] MEDS: TIZANIDINE HCL 4 MG TABLET PEG SCH ×2 (08:28→17:07)
[2019-07-11] MEDS: PROTEIN SUPPLEMENT (PROSTAT) 30 ML LIQUID PEG SCH ×2 (08:28→20:51)
[2019-07-11] MEDS: HYDROGEN PEROXIDE 3% 118 ML BOTTLE TP SCH ×2 (09:34→20:51)
[2019-07-11] MEDS: ACETAMINOPHEN 650 MG/20 ML UDC- SA PATIENTS-PAIN ONLY PEG SCH (17:07)
[2019-07-11 20:01] VITALS: BP 99/61
[2019-07-12] MEDS: OMEPRAZOLE 20 MG CAPSULE.DR GT SCH (05:53)
[2019-07-12] MEDS: MULTIVIT, IRON, MIN NO. 8, FA TABLET GT SCH (05:54)
[2019-07-12] MEDS: MIDODRINE 10 MG PEG SCH ×3 (05:54→22:04)
[2019-07-12 08:00] VITALS: BP 110/67
[2019-07-12] MEDS: HYDROGEN PEROXIDE 3% 118 ML BOTTLE TP SCH ×2 (08:24→21:22)
[2019-07-12] MEDS: NUTRISOURCE FIBER 4 GM PACKET PEG SCH ×2 (08:44→20:18)
[2019-07-12] MEDS: FERROUS SULFATE 330 MG/7.5 ML UDC- FOR SA ONLY GT SCH ×2 (08:44→20:18)
[2019-07-12] MEDS: PROTEIN SUPPLEMENT (PROSTAT) 30 ML LIQUID PEG SCH ×2 (08:44→20:18)
[2019-07-12] MEDS: Z GUARD REMEDY PASTE 57 GM TUBE TOP SCH ×2 (08:44→20:18)
[2019-07-12] MEDS: TIZANIDINE HCL 4 MG TABLET PEG SCH ×2 (08:44→16:00)
[2019-07-12] MEDS: ACETAMINOPHEN 650 MG/20 ML UDC- SA PATIENTS-PAIN ONLY PEG SCH (16:00)
[2019-07-12 19:52] VITALS: BP 100/62
[2019-07-13] MEDS: MIDODRINE 10 MG PEG SCH ×3 (05:35→21:21)
[2019-07-13] MEDS: OMEPRAZOLE 20 MG CAPSULE.DR GT SCH (05:35)
[2019-07-13 05:36] VITALS: BP 107/66
[2019-07-13 08:05] VITALS: BP 113/68
[2019-07-13] MEDS: HYDROGEN PEROXIDE 3% 118 ML BOTTLE TP SCH ×2 (08:20→21:21)
[2019-07-13] MEDS: FERROUS SULFATE 330 MG/7.5 ML UDC- FOR SA ONLY GT SCH ×2 (09:13→21:20)
[2019-07-13] MEDS: NUTRISOURCE FIBER 4 GM PACKET PEG SCH ×2 (09:13→21:20)
[2019-07-13] MEDS: PROTEIN SUPPLEMENT (PROSTAT) 30 ML LIQUID PEG SCH ×2 (09:13→21:20)
[2019-07-13] MEDS: Z GUARD REMEDY PASTE 57 GM TUBE TOP SCH ×2 (09:13→21:20)
[2019-07-13] MEDS: TIZANIDINE HCL 4 MG TABLET PEG SCH ×2 (09:13→17:00)
[2019-07-13] MEDS: ACETAMINOPHEN 650 MG/20 ML UDC- SA PATIENTS-PAIN ONLY PEG SCH (17:00)
[2019-07-13 20:57] VITALS: BP 112/67
[2019-07-14] MEDS: MIDODRINE 10 MG PEG SCH ×3 (06:00→21:50)
[2019-07-14] MEDS: MULTIVIT, IRON, MIN NO. 8, FA TABLET GT SCH (06:03)
[2019-07-14] MEDS: OMEPRAZOLE 20 MG CAPSULE.DR GT SCH (06:03)
[2019-07-14] MEDS: TWOCAL HN 1,000 ML LIQUID PEG PRN (06:56)
[2019-07-14 08:05] VITALS: BP 121/62
[2019-07-14] MEDS: NUTRISOURCE FIBER 4 GM PACKET PEG SCH ×2 (08:28→21:49)
[2019-07-14] MEDS: TIZANIDINE HCL 4 MG TABLET PEG SCH ×2 (08:28→17:00)
[2019-07-14] MEDS: PROTEIN SUPPLEMENT (PROSTAT) 30 ML LIQUID PEG SCH ×2 (08:28→21:50)
[2019-07-14] MEDS: FERROUS SULFATE 330 MG/7.5 ML UDC- FOR SA ONLY GT SCH ×2 (08:28→21:49)
[2019-07-14] MEDS: Z GUARD REMEDY PASTE 57 GM TUBE TOP SCH ×2 (08:29→21:50)
[2019-07-14] MEDS: HYDROGEN PEROXIDE 3% 118 ML BOTTLE TP SCH ×2 (09:11→21:36)
--- NOTE | 2019-07-14 09:33 | NUR ---
Seen by Batsheva Velasco, no new orders given at this time.
[2019-07-14] MEDS: ACETAMINOPHEN 650 MG/20 ML UDC- SA PATIENTS-PAIN ONLY PEG SCH (17:00)
[2019-07-14 20:23] VITALS: BP 123/62
[2019-07-15] MEDS: OMEPRAZOLE 20 MG CAPSULE.DR GT SCH (05:33)
[2019-07-15] MEDS: MIDODRINE 10 MG PEG SCH ×4 (05:33→21:24)
[2019-07-15 08:05] VITALS: BP 113/68
[2019-07-15] MEDS: PROTEIN SUPPLEMENT (PROSTAT) 30 ML LIQUID PEG SCH ×2 (08:50→21:19)
[2019-07-15] MEDS: NUTRISOURCE FIBER 4 GM PACKET PEG SCH ×2 (08:50→21:19)
[2019-07-15] MEDS: FERROUS SULFATE 330 MG/7.5 ML UDC- FOR SA ONLY GT SCH ×2 (08:50→21:19)
[2019-07-15] MEDS: Z GUARD REMEDY PASTE 57 GM TUBE TOP SCH ×2 (08:51→21:19)
[2019-07-15] MEDS: TIZANIDINE HCL 4 MG TABLET PEG SCH ×2 (08:51→16:47)
[2019-07-15] MEDS: HYDROGEN PEROXIDE 3% 118 ML BOTTLE TP SCH ×2 (09:41→21:37)
[2019-07-15] MEDS: ACETAMINOPHEN 650 MG/20 ML UDC- SA PATIENTS-PAIN ONLY PEG SCH (16:47)
[2019-07-15 20:17] VITALS: BP 114/65
[2019-07-16] MEDS: MIDODRINE 10 MG PEG SCH ×3 (05:20→22:03)
[2019-07-16] MEDS: OMEPRAZOLE 20 MG CAPSULE.DR GT SCH (05:20)
[2019-07-16] MEDS: MULTIVIT, IRON, MIN NO. 8, FA TABLET GT SCH (06:49)
[2019-07-16] MEDS: TWOCAL HN 1,000 ML LIQUID PEG PRN (06:51)
[2019-07-16] MEDS: FERROUS SULFATE 330 MG/7.5 ML UDC- FOR SA ONLY GT SCH ×2 (08:32→21:00)
[2019-07-16] MEDS: TIZANIDINE HCL 4 MG TABLET PEG SCH ×2 (08:33→17:03)
[2019-07-16] MEDS: NUTRISOURCE FIBER 4 GM PACKET PEG SCH ×2 (08:33→21:00)
[2019-07-16] MEDS: PROTEIN SUPPLEMENT (PROSTAT) 30 ML LIQUID PEG SCH ×2 (08:33→21:00)
[2019-07-16] MEDS: Z GUARD REMEDY PASTE 57 GM TUBE TOP SCH ×2 (08:34→21:00)
[2019-07-16] MEDS: HYDROGEN PEROXIDE 3% 118 ML BOTTLE TP SCH ×2 (09:02→20:56)
[2019-07-16 10:59] VITALS: BP 119/74
[2019-07-16] MEDS: ACETAMINOPHEN 650 MG/20 ML UDC- SA PATIENTS-PAIN ONLY PEG SCH (17:02)
[2019-07-16 21:36] VITALS: BP 105/51
[2019-07-16 22:04] VITALS: BP 105/51
--- NOTE | 2019-07-16 22:45 | NUR ---
Noted with menstrual flow at this time, no signs of any pain or discomfort noted, kept clean and comfortable.
[2019-07-17] MEDS: OMEPRAZOLE 20 MG CAPSULE.DR GT SCH (05:22)
[2019-07-17] MEDS: MIDODRINE 10 MG PEG SCH ×3 (05:22→22:02)
[2019-07-17 07:40] VITALS: BP 105/65
[2019-07-17] MEDS: Z GUARD REMEDY PASTE 57 GM TUBE TOP SCH ×2 (09:00→21:00)
[2019-07-17] MEDS: PROTEIN SUPPLEMENT (PROSTAT) 30 ML LIQUID PEG SCH ×2 (09:00→21:00)
[2019-07-17] MEDS: HYDROGEN PEROXIDE 3% 118 ML BOTTLE TP SCH ×2 (09:00→21:17)
[2019-07-17] MEDS: FERROUS SULFATE 330 MG/7.5 ML UDC- FOR SA ONLY GT SCH ×2 (09:00→21:00)
[2019-07-17] MEDS: NUTRISOURCE FIBER 4 GM PACKET PEG SCH ×2 (09:00→21:00)
[2019-07-17] MEDS: TIZANIDINE HCL 4 MG TABLET PEG SCH ×2 (09:00→17:22)
--- NOTE | 2019-07-17 09:20 | NUR ---
SEEN BY YADIEL Doll AND WITH DIONISIOO.
[2019-07-17] MEDS: ACETAMINOPHEN 650 MG/20 ML UDC- SA PATIENTS-PAIN ONLY PEG SCH (17:22)
[2019-07-17 20:08] VITALS: BP 88/51
[2019-07-18] MEDS: TWOCAL HN 1,000 ML LIQUID PEG PRN (02:52)
[2019-07-18 05:28] VITALS: BP 98/58
[2019-07-18] MEDS: MIDODRINE 10 MG PEG SCH ×3 (05:28→21:45)
[2019-07-18] MEDS: OMEPRAZOLE 20 MG CAPSULE.DR GT SCH (05:28)
[2019-07-18] MEDS: MULTIVIT, IRON, MIN NO. 8, FA TABLET GT SCH (05:31)
[2019-07-18 08:02] VITALS: BP 88/40
[2019-07-18] MEDS: PROTEIN SUPPLEMENT (PROSTAT) 30 ML LIQUID PEG SCH ×2 (08:28→21:45)
[2019-07-18] MEDS: Z GUARD REMEDY PASTE 57 GM TUBE TOP SCH ×2 (08:28→21:45)
[2019-07-18] MEDS: NUTRISOURCE FIBER 4 GM PACKET PEG SCH ×2 (08:28→21:45)
[2019-07-18] MEDS: TIZANIDINE HCL 4 MG TABLET PEG SCH ×2 (08:32→16:59)
[2019-07-18] MEDS: FERROUS SULFATE 330 MG/7.5 ML UDC- FOR SA ONLY GT SCH ×2 (08:33→21:45)
[2019-07-18] MEDS: HYDROGEN PEROXIDE 3% 118 ML BOTTLE TP SCH ×2 (09:59→21:44)
[2019-07-18 11:28] VITALS: BP 88/40
[2019-07-18] MEDS: ACETAMINOPHEN 650 MG/20 ML UDC- SA PATIENTS-PAIN ONLY PEG PRN (13:55)
--- NOTE | 2019-07-18 14:30 | NUR ---
Provided FaceTime for Pt with her family. Pt repositioned for comfort. Will continue to monitor.
--- NOTE | 2019-07-18 15:00 | NUR ---
SEEN BY DR. LYNNE AND WITH NNO.
[2019-07-18] MEDS: ACETAMINOPHEN 650 MG/20 ML UDC- SA PATIENTS-PAIN ONLY PEG SCH (17:00)
[2019-07-18 20:00] VITALS: BP 84/46
[2019-07-18 21:45] VITALS: BP 94/56
[2019-07-19 05:30] VITALS: BP 98/56
[2019-07-19] MEDS: OMEPRAZOLE 20 MG CAPSULE.DR GT SCH (05:30)
[2019-07-19] MEDS: MIDODRINE 10 MG PEG SCH ×3 (05:30→21:11)
[2019-07-19] MEDS: HYDROGEN PEROXIDE 3% 118 ML BOTTLE TP SCH ×2 (08:45→21:53)
[2019-07-19] MEDS: TIZANIDINE HCL 4 MG TABLET PEG SCH ×2 (08:51→17:56)
[2019-07-19] MEDS: NUTRISOURCE FIBER 4 GM PACKET PEG SCH ×2 (08:51→21:11)
[2019-07-19] MEDS: Z GUARD REMEDY PASTE 57 GM TUBE TOP SCH ×2 (08:51→21:11)
[2019-07-19] MEDS: FERROUS SULFATE 330 MG/7.5 ML UDC- FOR SA ONLY GT SCH ×2 (08:51→21:11)
[2019-07-19] MEDS: PROTEIN SUPPLEMENT (PROSTAT) 30 ML LIQUID PEG SCH ×2 (08:51→21:11)
[2019-07-19 12:07] VITALS: BP 104/58
[2019-07-19 13:57] VITALS: BP 118/65
[2019-07-19] MEDS: ACETAMINOPHEN 650 MG/20 ML UDC- SA PATIENTS-PAIN ONLY PEG SCH (17:56)
[2019-07-19 20:00] VITALS: BP 100/52
[2019-07-20] MEDS: TWOCAL HN 1,000 ML LIQUID PEG PRN (02:38)
[2019-07-20 05:05] VITALS: BP 102/60
[2019-07-20] MEDS: MIDODRINE 10 MG PEG SCH ×3 (05:05→21:54)
[2019-07-20] MEDS: OMEPRAZOLE 20 MG CAPSULE.DR GT SCH (05:05)
[2019-07-20] MEDS: MULTIVIT, IRON, MIN NO. 8, FA TABLET GT SCH (05:30)
[2019-07-20 08:07] VITALS: BP 124/68
[2019-07-20] MEDS: HYDROGEN PEROXIDE 3% 118 ML BOTTLE TP SCH ×2 (08:41→21:24)
[2019-07-20] MEDS: FERROUS SULFATE 330 MG/7.5 ML UDC- FOR SA ONLY GT SCH ×2 (08:46→21:54)
[2019-07-20] MEDS: NUTRISOURCE FIBER 4 GM PACKET PEG SCH ×2 (08:46→21:54)
[2019-07-20] MEDS: PROTEIN SUPPLEMENT (PROSTAT) 30 ML LIQUID PEG SCH ×2 (08:46→21:54)
[2019-07-20] MEDS: Z GUARD REMEDY PASTE 57 GM TUBE TOP SCH ×2 (08:46→21:54)
[2019-07-20] MEDS: TIZANIDINE HCL 4 MG TABLET PEG SCH ×2 (08:46→17:27)
--- NOTE | 2019-07-20 09:06 | NUR ---
SEEN BY YADIEL Prieto AND WITH DIONISIOO.
--- NOTE | 2019-07-20 15:15 | NUR ---
Provided face time to pt and her mother with no complaints noted. Kept pt. clean and comfortable with no signs of pain noted
[2019-07-20] MEDS: ACETAMINOPHEN 650 MG/20 ML UDC- SA PATIENTS-PAIN ONLY PEG SCH (17:27)
[2019-07-20 20:28] VITALS: BP 92/56
[2019-07-21] MEDS: OMEPRAZOLE 20 MG CAPSULE.DR GT SCH (05:06)
[2019-07-21] MEDS: MIDODRINE 10 MG PEG SCH ×3 (05:35→21:54)
[2019-07-21 07:56] VITALS: BP 109/62
[2019-07-21] MEDS: Z GUARD REMEDY PASTE 57 GM TUBE TOP SCH ×2 (08:21→21:54)
[2019-07-21] MEDS: NUTRISOURCE FIBER 4 GM PACKET PEG SCH ×2 (08:21→21:54)
[2019-07-21] MEDS: TIZANIDINE HCL 4 MG TABLET PEG SCH ×2 (08:21→16:20)
[2019-07-21] MEDS: PROTEIN SUPPLEMENT (PROSTAT) 30 ML LIQUID PEG SCH ×2 (08:21→21:54)
[2019-07-21] MEDS: FERROUS SULFATE 330 MG/7.5 ML UDC- FOR SA ONLY GT SCH ×2 (08:21→21:54)
[2019-07-21] MEDS: HYDROGEN PEROXIDE 3% 118 ML BOTTLE TP SCH ×2 (09:00→21:28)
--- NOTE | 2019-07-21 11:55 | NUR ---
SEEN BY DR. LYNNE AND WITH NNO.
[2019-07-21] MEDS: ACETAMINOPHEN 650 MG/20 ML UDC- SA PATIENTS-PAIN ONLY PEG SCH (16:20)
[2019-07-21 20:30] VITALS: BP 113/57
[2019-07-22] MEDS: TWOCAL HN 1,000 ML LIQUID PEG PRN (04:28)
[2019-07-22] MEDS: MIDODRINE 10 MG PEG SCH ×3 (05:36→21:09)
[2019-07-22] MEDS: OMEPRAZOLE 20 MG CAPSULE.DR GT SCH (05:36)
[2019-07-22] MEDS: MULTIVIT, IRON, MIN NO. 8, FA TABLET GT SCH (05:36)
[2019-07-22 07:32] VITALS: BP 118/69
[2019-07-22] MEDS: Z GUARD REMEDY PASTE 57 GM TUBE TOP SCH ×2 (09:00→21:08)
[2019-07-22] MEDS: PROTEIN SUPPLEMENT (PROSTAT) 30 ML LIQUID PEG SCH ×2 (09:00→21:08)
[2019-07-22] MEDS: FERROUS SULFATE 330 MG/7.5 ML UDC- FOR SA ONLY GT SCH ×2 (09:00→21:08)
[2019-07-22] MEDS: TIZANIDINE HCL 4 MG TABLET PEG SCH ×2 (09:00→17:00)
[2019-07-22] MEDS: NUTRISOURCE FIBER 4 GM PACKET PEG SCH ×2 (09:00→21:08)
[2019-07-22] MEDS: HYDROGEN PEROXIDE 3% 118 ML BOTTLE TP SCH ×2 (09:57→20:42)
[2019-07-22 13:36] VITALS: BP 86/52
[2019-07-22] MEDS: ACETAMINOPHEN 650 MG/20 ML UDC- SA PATIENTS-PAIN ONLY PEG SCH (17:00)
[2019-07-22 20:00] VITALS: BP 110/63
[2019-07-23] MEDS: OMEPRAZOLE 20 MG CAPSULE.DR GT SCH (05:14)
[2019-07-23] MEDS: MIDODRINE 10 MG PEG SCH ×3 (05:14→22:00)
[2019-07-23] MEDS: HYDROGEN PEROXIDE 3% 118 ML BOTTLE TP SCH ×2 (07:45→21:39)
[2019-07-23 07:52] VITALS: BP 120/63
[2019-07-23 07:54] VITALS: BP 118/66
[2019-07-23] MEDS: FERROUS SULFATE 330 MG/7.5 ML UDC- FOR SA ONLY GT SCH ×2 (08:23→21:59)
[2019-07-23] MEDS: TIZANIDINE HCL 4 MG TABLET PEG SCH ×2 (08:24→17:35)
[2019-07-23] MEDS: PROTEIN SUPPLEMENT (PROSTAT) 30 ML LIQUID PEG SCH ×2 (08:24→21:59)
[2019-07-23] MEDS: NUTRISOURCE FIBER 4 GM PACKET PEG SCH ×2 (08:24→21:59)
[2019-07-23] MEDS: Z GUARD REMEDY PASTE 57 GM TUBE TOP SCH ×2 (08:25→21:59)
--- NOTE | 2019-07-23 11:53 | NUR ---
SW received a Notice of Action letter from [facility], providing information on changes to patient's share of cost. JEY scanned and email this letter to Logan Gonsales in the accounting department. Original letter was filed in patient's file in this SW's office.
[2019-07-23 14:35] VITALS: BP 100/64
--- NOTE | 2019-07-23 16:30 | NUR ---
Facetime provided with mother at this time.
[2019-07-23] MEDS: ACETAMINOPHEN 650 MG/20 ML UDC- SA PATIENTS-PAIN ONLY PEG SCH (17:35)
[2019-07-23 20:00] VITALS: BP 106/68
[2019-07-24] MEDS: OMEPRAZOLE 20 MG CAPSULE.DR GT SCH (05:05)
[2019-07-24] MEDS: MIDODRINE 10 MG PEG SCH ×3 (05:05→21:27)
[2019-07-24] MEDS: MULTIVIT, IRON, MIN NO. 8, FA TABLET GT SCH (05:05)
[2019-07-24 07:51] VITALS: BP 99/60
[2019-07-24] MEDS: PROTEIN SUPPLEMENT (PROSTAT) 30 ML LIQUID PEG SCH ×2 (08:01→21:27)
[2019-07-24] MEDS: Z GUARD REMEDY PASTE 57 GM TUBE TOP SCH ×2 (08:01→21:27)
[2019-07-24] MEDS: FERROUS SULFATE 330 MG/7.5 ML UDC- FOR SA ONLY GT SCH ×2 (08:01→21:27)
[2019-07-24] MEDS: TIZANIDINE HCL 4 MG TABLET PEG SCH ×2 (08:01→17:29)
[2019-07-24] MEDS: NUTRISOURCE FIBER 4 GM PACKET PEG SCH ×2 (08:01→21:27)
[2019-07-24] MEDS: HYDROGEN PEROXIDE 3% 118 ML BOTTLE TP SCH ×2 (10:00→21:01)
[2019-07-24] MEDS: TWOCAL HN 1,000 ML LIQUID PEG PRN (11:47)
--- NOTE | 2019-07-24 16:00 | NUR ---
Provided FaceTime with pt's mother, Morena at this time.
[2019-07-24] MEDS: ACETAMINOPHEN 650 MG/20 ML UDC- SA PATIENTS-PAIN ONLY PEG SCH (17:30)
[2019-07-24 20:00] VITALS: BP 109/71
[2019-07-25 05:07] VITALS: BP 101/67
[2019-07-25] MEDS: OMEPRAZOLE 20 MG CAPSULE.DR GT SCH (05:08)
[2019-07-25] MEDS: MIDODRINE 10 MG PEG SCH ×3 (05:08→21:32)
[2019-07-25] MEDS: HYDROGEN PEROXIDE 3% 118 ML BOTTLE TP SCH ×2 (08:22→21:18)
[2019-07-25] MEDS: FERROUS SULFATE 330 MG/7.5 ML UDC- FOR SA ONLY GT SCH ×2 (08:51→21:32)
[2019-07-25] MEDS: NUTRISOURCE FIBER 4 GM PACKET PEG SCH ×2 (08:51→21:32)
[2019-07-25] MEDS: PROTEIN SUPPLEMENT (PROSTAT) 30 ML LIQUID PEG SCH ×2 (08:59→21:32)
[2019-07-25] MEDS: TIZANIDINE HCL 4 MG TABLET PEG SCH ×2 (08:59→17:10)
[2019-07-25] MEDS: Z GUARD REMEDY PASTE 57 GM TUBE TOP SCH ×2 (09:00→21:32)
[2019-07-25 12:09] VITALS: BP 108/57
[2019-07-25 12:11] VITALS: BP 108/57
--- NOTE | 2019-07-25 16:30 | NUR ---
Provided facetime to Pt with mother Morena.
[2019-07-25] MEDS: ACETAMINOPHEN 650 MG/20 ML UDC- SA PATIENTS-PAIN ONLY PEG SCH (17:10)
[2019-07-25 20:22] VITALS: BP 93/48
[2019-07-26 05:22] VITALS: BP 108/62
[2019-07-26] MEDS: MIDODRINE 10 MG PEG SCH ×3 (05:22→21:49)
[2019-07-26] MEDS: OMEPRAZOLE 20 MG CAPSULE.DR GT SCH (05:22)
[2019-07-26] MEDS: MULTIVIT, IRON, MIN NO. 8, FA TABLET GT SCH (05:35)
[2019-07-26 07:56] VITALS: BP 106/58
[2019-07-26] MEDS: HYDROGEN PEROXIDE 3% 118 ML BOTTLE TP SCH ×2 (08:47→21:40)
[2019-07-26] MEDS: TIZANIDINE HCL 4 MG TABLET PEG SCH ×2 (09:40→17:59)
[2019-07-26] MEDS: PROTEIN SUPPLEMENT (PROSTAT) 30 ML LIQUID PEG SCH ×2 (09:40→21:49)
[2019-07-26] MEDS: NUTRISOURCE FIBER 4 GM PACKET PEG SCH ×2 (09:40→21:49)
[2019-07-26] MEDS: FERROUS SULFATE 330 MG/7.5 ML UDC- FOR SA ONLY GT SCH ×2 (09:40→21:49)
[2019-07-26] MEDS: Z GUARD REMEDY PASTE 57 GM TUBE TOP SCH ×2 (09:41→21:49)
[2019-07-26] MEDS: TWOCAL HN 1,000 ML LIQUID PEG PRN (13:03)
--- NOTE | 2019-07-26 16:30 | NUR ---
Provided facetime for Patient with mother Morena.
[2019-07-26] MEDS: ACETAMINOPHEN 650 MG/20 ML UDC- SA PATIENTS-PAIN ONLY PEG SCH (17:58)
[2019-07-26 22:29] VITALS: BP 91/50
[2019-07-27 05:07] VITALS: BP 99/54
[2019-07-27] MEDS: MIDODRINE 10 MG PEG SCH ×3 (05:07→22:11)
[2019-07-27] MEDS: OMEPRAZOLE 20 MG CAPSULE.DR GT SCH (05:07)
[2019-07-27 07:52] VITALS: BP 113/71
[2019-07-27] MEDS: HYDROGEN PEROXIDE 3% 118 ML BOTTLE TP SCH ×2 (08:05→20:47)
[2019-07-27] MEDS: TIZANIDINE HCL 4 MG TABLET PEG SCH ×2 (09:38→17:14)
[2019-07-27] MEDS: Z GUARD REMEDY PASTE 57 GM TUBE TOP SCH ×2 (09:38→20:47)
[2019-07-27] MEDS: NUTRISOURCE FIBER 4 GM PACKET PEG SCH ×2 (09:38→20:47)
[2019-07-27] MEDS: FERROUS SULFATE 330 MG/7.5 ML UDC- FOR SA ONLY GT SCH ×2 (09:38→20:47)
[2019-07-27] MEDS: PROTEIN SUPPLEMENT (PROSTAT) 30 ML LIQUID PEG SCH ×2 (09:38→20:47)
--- NOTE | 2019-07-27 15:30 | NUR ---
Provided facetime to patient with mother Morena.
[2019-07-27] MEDS: ACETAMINOPHEN 650 MG/20 ML UDC- SA PATIENTS-PAIN ONLY PEG SCH (17:14)
[2019-07-27 22:38] VITALS: BP 93/52
[2019-07-28] MEDS: MIDODRINE 10 MG PEG SCH ×3 (06:00→21:12)
[2019-07-28] MEDS: OMEPRAZOLE 20 MG CAPSULE.DR GT SCH (06:44)
[2019-07-28] MEDS: MULTIVIT, IRON, MIN NO. 8, FA TABLET GT SCH (06:44)
[2019-07-28 07:35] VITALS: BP 102/66
[2019-07-28] MEDS: PROTEIN SUPPLEMENT (PROSTAT) 30 ML LIQUID PEG SCH ×2 (08:27→21:12)
[2019-07-28] MEDS: NUTRISOURCE FIBER 4 GM PACKET PEG SCH ×2 (08:27→21:12)
[2019-07-28] MEDS: Z GUARD REMEDY PASTE 57 GM TUBE TOP SCH ×2 (08:27→21:12)
[2019-07-28] MEDS: TIZANIDINE HCL 4 MG TABLET PEG SCH ×2 (08:27→16:00)
[2019-07-28] MEDS: FERROUS SULFATE 330 MG/7.5 ML UDC- FOR SA ONLY GT SCH ×2 (08:27→21:11)
[2019-07-28] MEDS: HYDROGEN PEROXIDE 3% 118 ML BOTTLE TP SCH ×2 (09:12→21:05)
--- NOTE | 2019-07-28 09:30 | NUR ---
Seen by Batsheva Velasco with no new order.
--- NOTE | 2019-07-28 10:00 | NUR ---
Seen Marta Kulkarni, with no new order.
[2019-07-28 14:21] VITALS: BP 109/60
[2019-07-28] MEDS: ACETAMINOPHEN 650 MG/20 ML UDC- SA PATIENTS-PAIN ONLY PEG SCH (16:00)
--- NOTE | 2019-07-28 16:00 | NUR ---
Ft done with pt's mother.
[2019-07-28] MEDS: POLYVINYL ALCOHOL OPHT DROPS 15 ML BOTTLE EACHEYE PRN (17:06)
[2019-07-28] MEDS: TRIAMCINOLONE ACET 0.1% OINT 15 GM TUBE TP PRN (17:06)
[2019-07-28 20:02] VITALS: BP 99/54
[2019-07-28] MEDS: TWOCAL HN 1,000 ML LIQUID PEG PRN (22:43)
[2019-07-29] MEDS: OMEPRAZOLE 20 MG CAPSULE.DR GT SCH (05:43)
[2019-07-29] MEDS: MIDODRINE 10 MG PEG SCH ×3 (05:44→21:25)
[2019-07-29 06:50] VITALS: BP 116/63
[2019-07-29 07:31] VITALS: BP 118/63
[2019-07-29] MEDS: Z GUARD REMEDY PASTE 57 GM TUBE TOP SCH ×2 (08:54→21:25)
[2019-07-29] MEDS: PROTEIN SUPPLEMENT (PROSTAT) 30 ML LIQUID PEG SCH ×2 (08:54→21:24)
[2019-07-29] MEDS: TIZANIDINE HCL 4 MG TABLET PEG SCH ×2 (08:54→17:00)
[2019-07-29] MEDS: NUTRISOURCE FIBER 4 GM PACKET PEG SCH ×2 (08:54→21:24)
[2019-07-29] MEDS: FERROUS SULFATE 330 MG/7.5 ML UDC- FOR SA ONLY GT SCH ×2 (08:54→21:24)
[2019-07-29] MEDS: HYDROGEN PEROXIDE 3% 118 ML BOTTLE TP SCH ×2 (09:29→20:54)
[2019-07-29 13:00] VITALS: BP 96/55
--- NOTE | 2019-07-29 13:38 | NUR ---
12:03pm: JEY emailed patient's mother Morena and informed her that the next IDT meeting for the patient has been scheduled for 08/05/2019 at 11am. JEY asked Morena to let this SW know if Morena would like to participate in the meeting via speaker phone.
--- NOTE | 2019-07-29 14:03 | NUR ---
JEY received an email response back from patient's mother Morena, stating that she would like to participate in the IDT meeting on 08/05/19. JEY sent Morena another email, asking her to be available between 11am-12pm on 08/04 in order to receive the call when JEY contacts Morena during the meeting.
--- NOTE | 2019-07-29 15:45 | NUR ---
FT DONE WITH PT'S MOTHER.
[2019-07-29] MEDS: ACETAMINOPHEN 650 MG/20 ML UDC- SA PATIENTS-PAIN ONLY PEG SCH (17:00)
[2019-07-29] MEDS: POLYVINYL ALCOHOL OPHT DROPS 15 ML BOTTLE EACHEYE PRN (17:13)
[2019-07-29] MEDS: TRIAMCINOLONE ACET 0.1% OINT 15 GM TUBE TP PRN (17:13)
[2019-07-29 20:03] VITALS: BP 91/50
[2019-07-30] MEDS: MIDODRINE 10 MG PEG SCH ×3 (05:25→22:07)
[2019-07-30] MEDS: OMEPRAZOLE 20 MG CAPSULE.DR GT SCH (05:25)
[2019-07-30 05:26] VITALS: BP 115/61
[2019-07-30] MEDS: MULTIVIT, IRON, MIN NO. 8, FA TABLET GT SCH (05:39)
[2019-07-30 07:48] VITALS: BP 104/57
[2019-07-30] MEDS: FERROUS SULFATE 330 MG/7.5 ML UDC- FOR SA ONLY GT SCH ×2 (08:25→20:38)
[2019-07-30] MEDS: TIZANIDINE HCL 4 MG TABLET PEG SCH ×2 (08:26→17:00)
[2019-07-30] MEDS: PROTEIN SUPPLEMENT (PROSTAT) 30 ML LIQUID PEG SCH ×2 (08:26→20:38)
[2019-07-30] MEDS: Z GUARD REMEDY PASTE 57 GM TUBE TOP SCH ×2 (08:26→20:38)
[2019-07-30] MEDS: NUTRISOURCE FIBER 4 GM PACKET PEG SCH ×2 (08:26→20:38)
[2019-07-30] MEDS: HYDROGEN PEROXIDE 3% 118 ML BOTTLE TP SCH ×2 (08:28→20:39)
[2019-07-30 14:34] VITALS: BP 99/60
[2019-07-30] MEDS: ACETAMINOPHEN 650 MG/20 ML UDC- SA PATIENTS-PAIN ONLY PEG SCH (17:00)
[2019-07-30] MEDS: TRIAMCINOLONE ACET 0.1% OINT 15 GM TUBE TP PRN (17:10)
[2019-07-30 19:57] VITALS: BP 92/51
[2019-07-31] MEDS: TWOCAL HN 1,000 ML LIQUID PEG PRN (02:25)
[2019-07-31] MEDS: MIDODRINE 10 MG PEG SCH ×3 (05:09→22:02)
[2019-07-31] MEDS: OMEPRAZOLE 20 MG CAPSULE.DR GT SCH (05:09)
[2019-07-31 07:38] VITALS: BP 92/57
[2019-07-31] MEDS: Z GUARD REMEDY PASTE 57 GM TUBE TOP SCH ×2 (08:06→20:05)
[2019-07-31] MEDS: PROTEIN SUPPLEMENT (PROSTAT) 30 ML LIQUID PEG SCH ×2 (08:06→20:05)
[2019-07-31] MEDS: NUTRISOURCE FIBER 4 GM PACKET PEG SCH ×2 (08:06→20:05)
[2019-07-31] MEDS: FERROUS SULFATE 330 MG/7.5 ML UDC- FOR SA ONLY GT SCH ×2 (08:06→20:05)
[2019-07-31] MEDS: TIZANIDINE HCL 4 MG TABLET PEG SCH ×2 (08:06→16:57)
[2019-07-31] MEDS: HYDROGEN PEROXIDE 3% 118 ML BOTTLE TP SCH ×2 (09:00→21:06)
--- NOTE | 2019-07-31 09:10 | NUR ---
PT. SEEN AND EXAMINED BY DR. LYNNE AND WITH NNO.
--- NOTE | 2019-07-31 11:12 | NUR ---
JEY called patient's mother Morena [phone] this morning in response to an email message Morena had sent this SW, inquiring about updates on the visitation restrictions for subacute. SW checked in on Morena to see how she was continuing to cope during the current pandemic. Morena described some of her feelings and thoughts, along with some of the psychosocial stressors associated with her son's family that she has been dealing with. SW allowed time for Morena to express herself, providing validation and supportive counseling. JEY also provided education on feelings of loss and grief associated with a crisis, and the effects social isolation can have on an individuals mental and emotional well-being. Morena was receptive to the education and supportive counseling provided, and appropriately engaged in the dialogue, sharing feelings and life experiences. JEY explored strategies that Morena has been using to help support her mental and emotional well-being, and Morena described turning to restorationist, being in regular contact with friends by telephone, and virtual get-togethers with hoahaoism members have been very helpful . JEY commended Morena on her efforts, and encouraged her to continue using these strategies. JEY then addressed Morena's questions pertaining to the visitation restrictions, stating that at this time [facility] has not provided any updates on when the restrictions would be lifted. Morena expressed understanding, and stated that although it has been difficult for her to be away from her daughter, she was very appreciative of the staff's ongoing efforts with taking care of her daughter and keeping her safe. Morena also expressed gratitude for the daily video chats that she is able to do with her daughter, which she states "seeing my daughter being taken care of so well gives me peace of mind". JEY thanked Morena for her positive feedback. Morena thanked JEY for her time and support. JEY reminded Morena that JEY will call her again on Friday 08/04 in order for Morena to participate in the IDT meeting. Morena expressed agreement. JEY will continue to be available to Morena, as needed.
[2019-07-31 14:18] VITALS: BP 100/58
--- NOTE | 2019-07-31 16:45 | NUR ---
provided facetime for patient with mother. patient stable no signs of pain or discomfort noted at this time.
[2019-07-31] MEDS: ACETAMINOPHEN 650 MG/20 ML UDC- SA PATIENTS-PAIN ONLY PEG SCH (16:57)
[2019-07-31 20:00] VITALS: BP 103/57
[2019-08-01] MEDS: MIDODRINE 10 MG PEG SCH ×3 (05:19→21:19)
[2019-08-01] MEDS: OMEPRAZOLE 20 MG CAPSULE.DR GT SCH (05:19)
[2019-08-01 05:20] VITALS: BP 108/45
[2019-08-01] MEDS: MULTIVIT, IRON, MIN NO. 8, FA TABLET GT SCH (05:30)
[2019-08-01 07:51] VITALS: BP 95/53
[2019-08-01] MEDS: HYDROGEN PEROXIDE 3% 118 ML BOTTLE TP SCH ×2 (08:16→21:06)
[2019-08-01] MEDS: NUTRISOURCE FIBER 4 GM PACKET PEG SCH ×2 (08:32→20:26)
[2019-08-01] MEDS: PROTEIN SUPPLEMENT (PROSTAT) 30 ML LIQUID PEG SCH ×2 (08:32→20:26)
[2019-08-01] MEDS: TIZANIDINE HCL 4 MG TABLET PEG SCH ×2 (08:33→16:10)
[2019-08-01] MEDS: Z GUARD REMEDY PASTE 57 GM TUBE TOP SCH ×2 (08:33→20:26)
[2019-08-01] MEDS: FERROUS SULFATE 330 MG/7.5 ML UDC- FOR SA ONLY GT SCH ×2 (08:33→20:26)
[2019-08-01] MEDS: ACETAMINOPHEN 650 MG/20 ML UDC- SA PATIENTS-PAIN ONLY PEG SCH (16:10)
[2019-08-01 20:00] VITALS: BP 120/70
--- NOTE | 2019-08-01 21:19 | NUR ---
2200 MIDODRINE 10MG TABLET VIA GT HELD ORDERED DUE TO SBP GREATER THAN 110. BP: 138/70, HR: 55. WILL CONTINUE TO MONITOR.
[2019-08-01] MEDS: TWOCAL HN 1,000 ML LIQUID PEG PRN (23:15)
[2019-08-02] MEDS: MIDODRINE 10 MG PEG SCH ×3 (05:17→21:20)
[2019-08-02] MEDS: OMEPRAZOLE 20 MG CAPSULE.DR GT SCH (05:17)
[2019-08-02 07:47] VITALS: BP 98/56
[2019-08-02] MEDS: HYDROGEN PEROXIDE 3% 118 ML BOTTLE TP SCH ×2 (08:36→21:00)
[2019-08-02] MEDS: FERROUS SULFATE 330 MG/7.5 ML UDC- FOR SA ONLY GT SCH ×2 (09:05→20:40)
[2019-08-02] MEDS: TIZANIDINE HCL 4 MG TABLET PEG SCH ×2 (09:06→17:13)
[2019-08-02] MEDS: NUTRISOURCE FIBER 4 GM PACKET PEG SCH ×2 (09:06→20:40)
[2019-08-02] MEDS: PROTEIN SUPPLEMENT (PROSTAT) 30 ML LIQUID PEG SCH ×2 (09:06→20:40)
[2019-08-02] MEDS: Z GUARD REMEDY PASTE 57 GM TUBE TOP SCH ×2 (09:06→20:40)
[2019-08-02] MEDS: ACETAMINOPHEN 650 MG/20 ML UDC- SA PATIENTS-PAIN ONLY PEG SCH (17:13)
[2019-08-02 20:21] VITALS: BP 124/68
--- NOTE | 2019-08-02 21:20 | NUR ---
2200 MIDODRINE 10MG TABLET HELD ORDERED DUE TO SBP GREATER THAN 110. BP: 124/68, HR: 70. WILL CONTINUE TO MONITOR.
[2019-08-03] MEDS: OMEPRAZOLE 20 MG CAPSULE.DR GT SCH (05:36)
[2019-08-03] MEDS: MIDODRINE 10 MG PEG SCH ×3 (05:36→21:14)
[2019-08-03] MEDS: MULTIVIT, IRON, MIN NO. 8, FA TABLET GT SCH (05:37)
[2019-08-03 07:32] VITALS: BP 111/64
[2019-08-03] MEDS: FERROUS SULFATE 330 MG/7.5 ML UDC- FOR SA ONLY GT SCH ×2 (08:26→20:42)
[2019-08-03] MEDS: NUTRISOURCE FIBER 4 GM PACKET PEG SCH ×2 (08:27→20:42)
[2019-08-03] MEDS: Z GUARD REMEDY PASTE 57 GM TUBE TOP SCH ×2 (08:27→20:42)
[2019-08-03] MEDS: PROTEIN SUPPLEMENT (PROSTAT) 30 ML LIQUID PEG SCH ×2 (08:27→20:42)
[2019-08-03] MEDS: TIZANIDINE HCL 4 MG TABLET PEG SCH ×2 (08:27→16:33)
[2019-08-03] MEDS: HYDROGEN PEROXIDE 3% 118 ML BOTTLE TP SCH ×2 (09:00→21:09)
[2019-08-03] MEDS: ACETAMINOPHEN 650 MG/20 ML UDC- SA PATIENTS-PAIN ONLY PEG SCH (16:33)
[2019-08-03] MEDS: TWOCAL HN 1,000 ML LIQUID PEG PRN (19:17)
[2019-08-03 20:43] VITALS: BP 102/69
[2019-08-04] MEDS: MIDODRINE 10 MG PEG SCH ×3 (05:24→21:31)
[2019-08-04] MEDS: OMEPRAZOLE 20 MG CAPSULE.DR GT SCH (05:24)
[2019-08-04 07:46] VITALS: BP 120/67
[2019-08-04] MEDS: FERROUS SULFATE 330 MG/7.5 ML UDC- FOR SA ONLY GT SCH ×2 (08:03→21:30)
[2019-08-04] MEDS: PROTEIN SUPPLEMENT (PROSTAT) 30 ML LIQUID PEG SCH ×2 (08:04→21:30)
[2019-08-04] MEDS: Z GUARD REMEDY PASTE 57 GM TUBE TOP SCH ×2 (08:04→21:30)
[2019-08-04] MEDS: NUTRISOURCE FIBER 4 GM PACKET PEG SCH ×2 (08:04→21:30)
[2019-08-04] MEDS: TIZANIDINE HCL 4 MG TABLET PEG SCH ×2 (08:04→17:16)
[2019-08-04] MEDS: HYDROGEN PEROXIDE 3% 118 ML BOTTLE TP SCH ×2 (09:06→21:28)
--- NOTE | 2019-08-04 09:54 | NUR ---
SEEN BY ALICIA MILES [facility].
--- NOTE | 2019-08-04 12:13 | NUR ---
JEY sent patient's mother Morena an email informing her that effective August 04, video chats with the patient will be done through ZOOM.
[2019-08-04] MEDS: ACETAMINOPHEN 650 MG/20 ML UDC- SA PATIENTS-PAIN ONLY PEG SCH (17:16)
[2019-08-04 20:30] VITALS: BP 99/63
[2019-08-05] MEDS: MIDODRINE 10 MG PEG SCH ×3 (05:05→21:39)
[2019-08-05] MEDS: OMEPRAZOLE 20 MG CAPSULE.DR GT SCH (05:05)
[2019-08-05] MEDS: MULTIVIT, IRON, MIN NO. 8, FA TABLET GT SCH (05:06)
[2019-08-05 07:38] VITALS: BP 113/67
[2019-08-05] MEDS: FERROUS SULFATE 330 MG/7.5 ML UDC- FOR SA ONLY GT SCH ×2 (08:15→21:38)
[2019-08-05] MEDS: TIZANIDINE HCL 4 MG TABLET PEG SCH ×2 (08:16→17:44)
[2019-08-05] MEDS: NUTRISOURCE FIBER 4 GM PACKET PEG SCH ×2 (08:16→21:38)
[2019-08-05] MEDS: Z GUARD REMEDY PASTE 57 GM TUBE TOP SCH ×2 (08:16→21:39)
[2019-08-05] MEDS: PROTEIN SUPPLEMENT (PROSTAT) 30 ML LIQUID PEG SCH ×2 (08:16→21:38)
[2019-08-05] MEDS: HYDROGEN PEROXIDE 3% 118 ML BOTTLE TP SCH ×2 (09:47→19:09)
--- NOTE | 2019-08-05 10:25 | NUR ---
SW received a voicemail message from patient's mother Morena stating that she would not be available to participate in today's IDT meeting, even thought she had agreed to do so last week. In the same voicemail message, Morena expressed not having any concerns and stated being thankful for the ongoing care that staff have been providing the patient.
--- NOTE | 2019-08-05 13:00 | NUR ---
INTERDISCIPLINARY PLAN OF CARE CONFERENCE was held today. Patient's mother Morena was not available to participate in the meeting. Dr. Caraballo and the Interdisciplinary Team reviewed the current plan of care in detail. RN reported on patient's current medical condition, stating there were not major change in patient's condition. See RN IDT conference notes. See all also other disciplines IDT notes and physician's progress notes for additional details.
[2019-08-05 14:37] VITALS: BP 98/57
--- NOTE | 2019-08-05 14:41 | NUR ---
Pharmacy Update from Today's 08/05/19 IDT Meeting VS: Temp 98.7 BP 113/67 HR 84 LABS: (from 07/09/19) Wbc 7.5 H/H 13.1/39 Plt 219 Na 135 K 3.5 Cl 100 CO2 30 BUN/SCr 16/0.6 BS 100 Ca 8.9 MEDICATION USE REVIEWED: > Pt not on any anti-epileptic or anti-psych medications > Pt on Midodrine 10mg q8hr ATC with parameters for hold SBP >110 > PRN MED USAGE: (June) Tylenol for pain used x 2 Tylenol for temp used x 0 Artificial tears used x 1 Docusate PRN x 0 Bisacodyl PRN used x 3 Benadryl PRN used x 0 (for resolved rxn from family's moisturizer while OOP) NEW ORDERS NOTED: > NA Patient reviewed and discussed at IDT with no medication issues at this time, remains stable on current medications. Rx recommended for benadryl PRN d/c as originally ordered for a possible reaction to family's home brought moisturizer while OOP, since resolved and likely no longer needed. facilities planner noted, will f/u with primary MD for d/c orders as appropriate. No other recs at this time, will continue to follow
--- NOTE | 2019-08-05 16:16 | NUR ---
Video chat provided with pt's mother at this time.
[2019-08-05] MEDS: ACETAMINOPHEN 650 MG/20 ML UDC- SA PATIENTS-PAIN ONLY PEG SCH (17:44)
[2019-08-05] MEDS: TWOCAL HN 1,000 ML LIQUID PEG PRN (17:59)
[2019-08-05 20:05] VITALS: BP 109/51
[2019-08-06] MEDS: MIDODRINE 10 MG PEG SCH ×3 (06:00→21:49)
[2019-08-06] MEDS: OMEPRAZOLE 20 MG CAPSULE.DR GT SCH (06:06)
--- NOTE | 2019-08-06 06:07 | NUR ---
Midodrine 10 mg gtube held B/P1
[2019-08-06 07:47] VITALS: BP 103/72
[2019-08-06] MEDS: FERROUS SULFATE 330 MG/7.5 ML UDC- FOR SA ONLY GT SCH ×2 (08:10→21:49)
[2019-08-06] MEDS: Z GUARD REMEDY PASTE 57 GM TUBE TOP SCH ×2 (08:11→21:49)
[2019-08-06] MEDS: PROTEIN SUPPLEMENT (PROSTAT) 30 ML LIQUID PEG SCH ×2 (08:11→21:49)
[2019-08-06] MEDS: TIZANIDINE HCL 4 MG TABLET PEG SCH ×2 (08:11→17:20)
[2019-08-06] MEDS: NUTRISOURCE FIBER 4 GM PACKET PEG SCH ×2 (08:11→21:49)
[2019-08-06] MEDS: HYDROGEN PEROXIDE 3% 118 ML BOTTLE TP SCH ×2 (09:23→21:45)
[2019-08-06 14:16] VITALS: BP 105/60
[2019-08-06] MEDS: ACETAMINOPHEN 650 MG/20 ML UDC- SA PATIENTS-PAIN ONLY PEG SCH (17:20)
[2019-08-06 20:02] VITALS: BP 106/53
[2019-08-07] MEDS: MULTIVIT, IRON, MIN NO. 8, FA TABLET GT SCH (06:06)
[2019-08-07] MEDS: OMEPRAZOLE 20 MG CAPSULE.DR GT SCH (06:06)
[2019-08-07] MEDS: MIDODRINE 10 MG PEG SCH ×3 (06:06→21:46)
[2019-08-07 07:38] VITALS: BP 107/53
[2019-08-07] MEDS: PROTEIN SUPPLEMENT (PROSTAT) 30 ML LIQUID PEG SCH ×2 (08:43→21:46)
[2019-08-07] MEDS: Z GUARD REMEDY PASTE 57 GM TUBE TOP SCH ×2 (08:43→21:46)
[2019-08-07] MEDS: FERROUS SULFATE 330 MG/7.5 ML UDC- FOR SA ONLY GT SCH ×2 (08:43→21:46)
[2019-08-07] MEDS: TIZANIDINE HCL 4 MG TABLET PEG SCH ×2 (08:43→17:31)
[2019-08-07] MEDS: NUTRISOURCE FIBER 4 GM PACKET PEG SCH ×2 (08:43→21:46)
[2019-08-07] MEDS: HYDROGEN PEROXIDE 3% 118 ML BOTTLE TP SCH ×2 (09:00→21:14)
--- NOTE | 2019-08-07 16:00 | NUR ---
Resident provided video chat with her mother with no problems, pt remains comfortable with no signs of pain or discomfort.
[2019-08-07] MEDS: ACETAMINOPHEN 650 MG/20 ML UDC- SA PATIENTS-PAIN ONLY PEG SCH (17:31)
[2019-08-07 20:11] VITALS: BP 99/60
[2019-08-08] MEDS: MIDODRINE 10 MG PEG SCH ×3 (05:27→21:05)
[2019-08-08] MEDS: OMEPRAZOLE 20 MG CAPSULE.DR GT SCH (05:27)
[2019-08-08 07:28] VITALS: BP 112/69
[2019-08-08] MEDS: TIZANIDINE HCL 4 MG TABLET PEG SCH ×2 (09:12→17:02)
[2019-08-08] MEDS: PROTEIN SUPPLEMENT (PROSTAT) 30 ML LIQUID PEG SCH ×2 (09:12→21:05)
[2019-08-08] MEDS: Z GUARD REMEDY PASTE 57 GM TUBE TOP SCH ×2 (09:12→21:05)
[2019-08-08] MEDS: NUTRISOURCE FIBER 4 GM PACKET PEG SCH ×2 (09:12→21:05)
[2019-08-08] MEDS: FERROUS SULFATE 330 MG/7.5 ML UDC- FOR SA ONLY GT SCH ×2 (09:12→21:05)
[2019-08-08] MEDS: HYDROGEN PEROXIDE 3% 118 ML BOTTLE TP SCH ×2 (09:28→21:10)
--- NOTE | 2019-08-08 14:00 | NUR ---
Provided video chat to pt. and his with no problem, kept pt. clean and comfortable no signs of pain or discomfort noted.
[2019-08-08] MEDS: ACETAMINOPHEN 650 MG/20 ML UDC- SA PATIENTS-PAIN ONLY PEG SCH (17:02)
--- NOTE | 2019-08-08 17:41 | NUR ---
Seen by Dr. Alarcon with no new order.
[2019-08-08 20:22] VITALS: BP 99/69
[2019-08-09] MEDS: MIDODRINE 10 MG PEG SCH ×3 (06:00→21:19)
[2019-08-09] MEDS: OMEPRAZOLE 20 MG CAPSULE.DR GT SCH (06:18)
[2019-08-09] MEDS: MULTIVIT, IRON, MIN NO. 8, FA TABLET GT SCH (06:19)
[2019-08-09 06:47] VITALS: BP 117/67
[2019-08-09 08:02] VITALS: BP 108/61
[2019-08-09] MEDS: NUTRISOURCE FIBER 4 GM PACKET PEG SCH ×2 (08:57→21:18)
[2019-08-09] MEDS: FERROUS SULFATE 330 MG/7.5 ML UDC- FOR SA ONLY GT SCH ×2 (08:57→21:18)
[2019-08-09] MEDS: PROTEIN SUPPLEMENT (PROSTAT) 30 ML LIQUID PEG SCH ×2 (08:57→21:18)
[2019-08-09] MEDS: Z GUARD REMEDY PASTE 57 GM TUBE TOP SCH ×2 (08:58→21:18)
[2019-08-09] MEDS: TIZANIDINE HCL 4 MG TABLET PEG SCH ×2 (08:58→17:25)
[2019-08-09] MEDS: HYDROGEN PEROXIDE 3% 118 ML BOTTLE TP SCH ×2 (10:10→21:23)
[2019-08-09 13:00] VITALS: BP 94/64
--- NOTE | 2019-08-09 15:45 | NUR ---
video chat done with pt's mother Morena.
[2019-08-09] MEDS: ACETAMINOPHEN 650 MG/20 ML UDC- SA PATIENTS-PAIN ONLY PEG SCH (17:25)
[2019-08-09] MEDS: TWOCAL HN 1,000 ML LIQUID PEG PRN (17:45)
[2019-08-09 19:47] VITALS: BP 100/61
[2019-08-10 05:06] VITALS: BP 97/61
[2019-08-10] MEDS: MIDODRINE 10 MG PEG SCH ×3 (05:06→21:20)
[2019-08-10] MEDS: OMEPRAZOLE 20 MG CAPSULE.DR GT SCH (05:06)
[2019-08-10 07:30] VITALS: BP 107/55
[2019-08-10] MEDS: Z GUARD REMEDY PASTE 57 GM TUBE TOP SCH ×2 (09:12→21:20)
[2019-08-10] MEDS: ACETAMINOPHEN 650 MG/20 ML UDC- SA PATIENTS-PAIN ONLY PEG SCH ×2 (09:12→17:00)
[2019-08-10] MEDS: TIZANIDINE HCL 4 MG TABLET PEG SCH ×2 (09:12→17:00)
[2019-08-10] MEDS: NUTRISOURCE FIBER 4 GM PACKET PEG SCH ×2 (09:12→21:19)
[2019-08-10] MEDS: FERROUS SULFATE 330 MG/7.5 ML UDC- FOR SA ONLY GT SCH ×2 (09:12→21:19)
[2019-08-10] MEDS: PROTEIN SUPPLEMENT (PROSTAT) 30 ML LIQUID PEG SCH ×2 (09:12→21:20)
[2019-08-10] MEDS: HYDROGEN PEROXIDE 3% 118 ML BOTTLE TP SCH ×2 (09:46→20:36)
--- NOTE | 2019-08-10 18:49 | NUR ---
Pt. v/s WNL. No respiratory distress at this time. Video chat provided. Family appreciated the effort.
[2019-08-10 21:09] VITALS: BP 108/60
[2019-08-11] MEDS: MIDODRINE 10 MG PEG SCH ×3 (05:10→21:26)
[2019-08-11] MEDS: OMEPRAZOLE 20 MG CAPSULE.DR GT SCH (05:10)
[2019-08-11] MEDS: MULTIVIT, IRON, MIN NO. 8, FA TABLET GT SCH (05:30)
[2019-08-11] MEDS: TWOCAL HN 1,000 ML LIQUID PEG PRN (06:37)
[2019-08-11 07:27] VITALS: BP 124/68
[2019-08-11] MEDS: TIZANIDINE HCL 4 MG TABLET PEG SCH ×2 (08:59→17:48)
[2019-08-11] MEDS: PROTEIN SUPPLEMENT (PROSTAT) 30 ML LIQUID PEG SCH ×2 (08:59→21:25)
[2019-08-11] MEDS: NUTRISOURCE FIBER 4 GM PACKET PEG SCH ×2 (08:59→21:25)
[2019-08-11] MEDS: FERROUS SULFATE 330 MG/7.5 ML UDC- FOR SA ONLY GT SCH ×2 (08:59→21:25)
[2019-08-11] MEDS: Z GUARD REMEDY PASTE 57 GM TUBE TOP SCH ×2 (08:59→21:25)
[2019-08-11] MEDS: HYDROGEN PEROXIDE 3% 118 ML BOTTLE TP SCH ×2 (09:22→21:44)
--- NOTE | 2019-08-11 16:39 | NUR ---
Pt.'s v/s WNL. Pt is comfortable and no respiratory distress at this time. Video chat provided with the family. Family expressed appreciation with the effort done.
[2019-08-11 21:03] VITALS: BP 110/67
[2019-08-12] MEDS: OMEPRAZOLE 20 MG CAPSULE.DR GT SCH (05:45)
[2019-08-12] MEDS: MIDODRINE 10 MG PEG SCH ×3 (05:45→21:28)
[2019-08-12 07:22] VITALS: BP 101/66
[2019-08-12] MEDS: FERROUS SULFATE 330 MG/7.5 ML UDC- FOR SA ONLY GT SCH ×2 (09:12→21:28)
[2019-08-12] MEDS: PROTEIN SUPPLEMENT (PROSTAT) 30 ML LIQUID PEG SCH ×2 (09:12→21:28)
[2019-08-12] MEDS: NUTRISOURCE FIBER 4 GM PACKET PEG SCH ×2 (09:12→21:28)
[2019-08-12] MEDS: Z GUARD REMEDY PASTE 57 GM TUBE TOP SCH ×2 (09:13→21:28)
[2019-08-12] MEDS: TIZANIDINE HCL 4 MG TABLET PEG SCH ×2 (09:13→17:56)
[2019-08-12] MEDS: HYDROGEN PEROXIDE 3% 118 ML BOTTLE TP SCH ×2 (09:19→20:39)
--- NOTE | 2019-08-12 16:29 | NUR ---
Pt.'s vital signs w/in normal range. No s/s of respiratory distress at this time. Video chat provided with the family. Family verbalized appreciation of all the efforts done by the staff.
[2019-08-12] MEDS: ACETAMINOPHEN 650 MG/20 ML UDC- SA PATIENTS-PAIN ONLY PEG SCH (17:56)
[2019-08-12 20:21] VITALS: BP 113/80
[2019-08-13] MEDS: TWOCAL HN 1,000 ML LIQUID PEG PRN (02:12)
[2019-08-13] MEDS: MIDODRINE 10 MG PEG SCH ×3 (05:04→22:27)
[2019-08-13] MEDS: OMEPRAZOLE 20 MG CAPSULE.DR GT SCH (05:04)
[2019-08-13] MEDS: MULTIVIT, IRON, MIN NO. 8, FA TABLET GT SCH (05:46)
[2019-08-13 07:56] VITALS: BP 96/59
[2019-08-13] MEDS: PROTEIN SUPPLEMENT (PROSTAT) 30 ML LIQUID PEG SCH ×2 (08:56→20:41)
[2019-08-13] MEDS: NUTRISOURCE FIBER 4 GM PACKET PEG SCH ×2 (08:56→20:41)
[2019-08-13] MEDS: Z GUARD REMEDY PASTE 57 GM TUBE TOP SCH ×2 (08:56→20:41)
[2019-08-13] MEDS: TIZANIDINE HCL 4 MG TABLET PEG SCH ×2 (08:56→17:00)
[2019-08-13] MEDS: FERROUS SULFATE 330 MG/7.5 ML UDC- FOR SA ONLY GT SCH ×2 (08:56→20:41)
[2019-08-13] MEDS: HYDROGEN PEROXIDE 3% 118 ML BOTTLE TP SCH ×2 (10:00→21:12)
[2019-08-13] MEDS: ACETAMINOPHEN 650 MG/20 ML UDC- SA PATIENTS-PAIN ONLY PEG SCH (17:00)
--- NOTE | 2019-08-13 17:10 | NUR ---
New orders to do the Baseline [facility] Covid 19 test requirement.
[2019-08-13 20:00] VITALS: BP 94/61
[2019-08-14] MEDS: MIDODRINE 10 MG PEG SCH ×3 (05:29→21:36)
[2019-08-14] MEDS: OMEPRAZOLE 20 MG CAPSULE.DR GT SCH (05:29)
[2019-08-14 07:55] VITALS: BP 105/65
[2019-08-14] MEDS: PROTEIN SUPPLEMENT (PROSTAT) 30 ML LIQUID PEG SCH ×2 (09:15→21:35)
[2019-08-14] MEDS: FERROUS SULFATE 330 MG/7.5 ML UDC- FOR SA ONLY GT SCH ×2 (09:15→21:35)
[2019-08-14] MEDS: TIZANIDINE HCL 4 MG TABLET PEG SCH ×2 (09:15→16:10)
[2019-08-14] MEDS: NUTRISOURCE FIBER 4 GM PACKET PEG SCH ×2 (09:15→21:35)
[2019-08-14] MEDS: Z GUARD REMEDY PASTE 57 GM TUBE TOP SCH ×2 (09:15→21:35)
[2019-08-14] MEDS: HYDROGEN PEROXIDE 3% 118 ML BOTTLE TP SCH ×2 (09:23→21:28)
[2019-08-14] MEDS: ACETAMINOPHEN 650 MG/20 ML UDC- SA PATIENTS-PAIN ONLY PEG SCH (16:10)
[2019-08-14 20:00] VITALS: BP 116/66
[2019-08-15] MEDS: TWOCAL HN 1,000 ML LIQUID PEG PRN (03:49)
[2019-08-15 05:19] VITALS: BP 98/60
[2019-08-15] MEDS: MIDODRINE 10 MG PEG SCH ×3 (05:21→21:33)
[2019-08-15] MEDS: OMEPRAZOLE 20 MG CAPSULE.DR GT SCH (05:21)
[2019-08-15] MEDS: MULTIVIT, IRON, MIN NO. 8, FA TABLET GT SCH (05:32)
[2019-08-15 07:48] VITALS: BP 112/67
[2019-08-15] MEDS: FERROUS SULFATE 330 MG/7.5 ML UDC- FOR SA ONLY GT SCH ×2 (08:25→21:33)
[2019-08-15] MEDS: NUTRISOURCE FIBER 4 GM PACKET PEG SCH ×2 (08:26→21:33)
[2019-08-15] MEDS: PROTEIN SUPPLEMENT (PROSTAT) 30 ML LIQUID PEG SCH ×2 (08:26→21:33)
[2019-08-15] MEDS: TIZANIDINE HCL 4 MG TABLET PEG SCH ×2 (08:26→17:42)
[2019-08-15] MEDS: Z GUARD REMEDY PASTE 57 GM TUBE TOP SCH ×2 (08:27→21:33)
[2019-08-15] MEDS: HYDROGEN PEROXIDE 3% 118 ML BOTTLE TP SCH ×2 (09:00→21:37)
--- NOTE | 2019-08-15 11:03 | NUR ---
PT. WAS NEGATIVE FOR COVID 19.
[2019-08-15] MEDS: ACETAMINOPHEN 650 MG/20 ML UDC- SA PATIENTS-PAIN ONLY PEG SCH (17:42)
[2019-08-15 20:03] VITALS: BP 97/60
[2019-08-16] MEDS: OMEPRAZOLE 20 MG CAPSULE.DR GT SCH (05:45)
[2019-08-16] MEDS: MIDODRINE 10 MG PEG SCH ×3 (05:45→21:31)
[2019-08-16 05:57] VITALS: BP 99/63
[2019-08-16] MEDS: HYDROGEN PEROXIDE 3% 118 ML BOTTLE TP SCH ×2 (07:16→21:00)
[2019-08-16 07:42] VITALS: BP 96/57
[2019-08-16] MEDS: FERROUS SULFATE 330 MG/7.5 ML UDC- FOR SA ONLY GT SCH ×2 (09:32→21:31)
[2019-08-16] MEDS: TIZANIDINE HCL 4 MG TABLET PEG SCH ×2 (09:32→17:15)
[2019-08-16] MEDS: Z GUARD REMEDY PASTE 57 GM TUBE TOP SCH ×2 (09:32→21:31)
[2019-08-16] MEDS: PROTEIN SUPPLEMENT (PROSTAT) 30 ML LIQUID PEG SCH ×2 (09:32→21:31)
[2019-08-16] MEDS: NUTRISOURCE FIBER 4 GM PACKET PEG SCH ×2 (09:32→21:31)
[2019-08-16] MEDS: ACETAMINOPHEN 650 MG/20 ML UDC- SA PATIENTS-PAIN ONLY PEG SCH (17:18)
[2019-08-16 19:55] VITALS: BP 108/69
[2019-08-17] MEDS: TWOCAL HN 1,000 ML LIQUID PEG PRN (02:40)
[2019-08-17] MEDS: OMEPRAZOLE 20 MG CAPSULE.DR GT SCH (05:18)
[2019-08-17] MEDS: MIDODRINE 10 MG PEG SCH ×3 (05:18→21:10)
[2019-08-17 05:19] VITALS: BP 112/70
[2019-08-17] MEDS: MULTIVIT, IRON, MIN NO. 8, FA TABLET GT SCH (05:55)
[2019-08-17 08:02] VITALS: BP 104/66
[2019-08-17] MEDS: FERROUS SULFATE 330 MG/7.5 ML UDC- FOR SA ONLY GT SCH ×2 (08:38→21:10)
[2019-08-17] MEDS: Z GUARD REMEDY PASTE 57 GM TUBE TOP SCH ×2 (08:39→21:10)
[2019-08-17] MEDS: NUTRISOURCE FIBER 4 GM PACKET PEG SCH ×2 (08:39→21:10)
[2019-08-17] MEDS: PROTEIN SUPPLEMENT (PROSTAT) 30 ML LIQUID PEG SCH ×2 (08:39→21:10)
[2019-08-17] MEDS: TIZANIDINE HCL 4 MG TABLET PEG SCH ×2 (08:39→16:55)
[2019-08-17] MEDS: HYDROGEN PEROXIDE 3% 118 ML BOTTLE TP SCH ×2 (09:12→21:27)
[2019-08-17] MEDS: ACETAMINOPHEN 650 MG/20 ML UDC- SA PATIENTS-PAIN ONLY PEG SCH (16:55)
[2019-08-17 19:54] VITALS: BP 99/61
[2019-08-18] MEDS: OMEPRAZOLE 20 MG CAPSULE.DR GT SCH (05:31)
[2019-08-18] MEDS: MIDODRINE 10 MG PEG SCH ×3 (05:31→21:03)
[2019-08-18 06:49] VITALS: BP 112/59
[2019-08-18 07:27] VITALS: BP 115/67
[2019-08-18] MEDS: FERROUS SULFATE 330 MG/7.5 ML UDC- FOR SA ONLY GT SCH ×2 (08:19→21:02)
[2019-08-18] MEDS: PROTEIN SUPPLEMENT (PROSTAT) 30 ML LIQUID PEG SCH ×2 (08:20→21:02)
[2019-08-18] MEDS: Z GUARD REMEDY PASTE 57 GM TUBE TOP SCH ×2 (08:20→21:02)
[2019-08-18] MEDS: NUTRISOURCE FIBER 4 GM PACKET PEG SCH ×2 (08:20→21:02)
[2019-08-18] MEDS: TIZANIDINE HCL 4 MG TABLET PEG SCH ×2 (08:20→16:38)
[2019-08-18] MEDS: HYDROGEN PEROXIDE 3% 118 ML BOTTLE TP SCH ×2 (09:39→21:39)
--- NOTE | 2019-08-18 16:00 | NUR ---
Assisted video chat with mother at this time.
[2019-08-18] MEDS: ACETAMINOPHEN 650 MG/20 ML UDC- SA PATIENTS-PAIN ONLY PEG SCH (16:38)
[2019-08-18 20:09] VITALS: BP 97/61
[2019-08-18] MEDS: NEOMY/BACITRA/POLYMYXIN B OINT UD PACKET TP SCH (21:03)
[2019-08-18] MEDS: TWOCAL HN 1,000 ML LIQUID PEG PRN (23:00)
[2019-08-19] MEDS: MULTIVIT, IRON, MIN NO. 8, FA TABLET GT SCH (06:33)
[2019-08-19] MEDS: OMEPRAZOLE 20 MG CAPSULE.DR GT SCH (06:33)
[2019-08-19] MEDS: MIDODRINE 10 MG PEG SCH ×3 (06:33→21:41)
[2019-08-19 07:33] VITALS: BP 99/59
[2019-08-19] MEDS: NUTRISOURCE FIBER 4 GM PACKET PEG SCH ×2 (08:58→21:40)
[2019-08-19] MEDS: PROTEIN SUPPLEMENT (PROSTAT) 30 ML LIQUID PEG SCH ×2 (08:58→21:40)
[2019-08-19] MEDS: NEOMY/BACITRA/POLYMYXIN B OINT UD PACKET TP SCH ×2 (08:58→21:41)
[2019-08-19] MEDS: FERROUS SULFATE 330 MG/7.5 ML UDC- FOR SA ONLY GT SCH ×2 (08:58→21:40)
[2019-08-19] MEDS: TIZANIDINE HCL 4 MG TABLET PEG SCH ×2 (08:58→17:04)
[2019-08-19] MEDS: Z GUARD REMEDY PASTE 57 GM TUBE TOP SCH ×2 (08:58→21:40)
[2019-08-19] MEDS: HYDROGEN PEROXIDE 3% 118 ML BOTTLE TP SCH ×2 (09:08→21:22)
--- NOTE | 2019-08-19 13:52 | NUR ---
11:17am: This SW contacted patient's mother Morena to check-in on her. Morena was receptive to speaking with this SW. Morena inquired about any updated regarding when the facility will be opened to visitors, and JEY stated that there have not been any changes made by [facility] regarding the visitations, and therefore the restrictions continue to remain in place. Morena expressed understanding and thanked staff for all there work with taking care of her daughter during these times, but also expressed missing her daughter. SW empathized with Morena, allowed Morena to express her thoughts and feelings. Morena also discussed her ongoing efforts with adjusting to her new social environment and life cycle transition. SW provided Morena with supportive counseling and commended her on her ongoing efforts. Towards the end of this conversation, nursing administrator Pio Boone joined the conversation. Pio spoke with Morena, and reported to her that during routine G-tube care this morning, a small lifeless insect was found in between the layers of the gauge used with the G-tube. Morena expressed gratitude to Pio for informing her of this. Pio explained that for precautionary purposes, patient's room would be thoroughly cleaned, per facility policy. Morena expressed understanding and thanked Pio for taking the necessary measures. Morena expressed the realization that this was not necessary a fault of the subacute facility, but that it could also have been a packing oversight from the rail doweling machine operator. Morena presented calm, and understanding, and thanked Pio for the information and the immediate response with tending to the matter.
[2019-08-19] MEDS: ACETAMINOPHEN 650 MG/20 ML UDC- SA PATIENTS-PAIN ONLY PEG SCH (17:04)
[2019-08-19 19:52] VITALS: BP 102/59
[2019-08-20] MEDS: MIDODRINE 10 MG PEG SCH ×3 (05:43→22:21)
[2019-08-20] MEDS: OMEPRAZOLE 20 MG CAPSULE.DR GT SCH (05:43)
[2019-08-20 05:44] VITALS: BP 109/78
[2019-08-20 07:47] VITALS: BP 110/60
[2019-08-20] MEDS: NEOMY/BACITRA/POLYMYXIN B OINT UD PACKET TP SCH ×2 (09:19→20:02)
[2019-08-20] MEDS: NUTRISOURCE FIBER 4 GM PACKET PEG SCH ×2 (09:19→20:02)
[2019-08-20] MEDS: Z GUARD REMEDY PASTE 57 GM TUBE TOP SCH ×2 (09:19→20:02)
[2019-08-20] MEDS: FERROUS SULFATE 330 MG/7.5 ML UDC- FOR SA ONLY GT SCH ×2 (09:19→20:02)
[2019-08-20] MEDS: TIZANIDINE HCL 4 MG TABLET PEG SCH ×2 (09:19→17:30)
[2019-08-20] MEDS: PROTEIN SUPPLEMENT (PROSTAT) 30 ML LIQUID PEG SCH ×2 (09:19→20:02)
[2019-08-20] MEDS: HYDROGEN PEROXIDE 3% 118 ML BOTTLE TP SCH ×2 (09:24→21:23)
--- NOTE | 2019-08-20 16:05 | NUR ---
Provided video chat for pt and her mother with no problems noted, kept pt clean and comfortable with no signs of pain noted.
[2019-08-20] MEDS: ACETAMINOPHEN 650 MG/20 ML UDC- SA PATIENTS-PAIN ONLY PEG SCH (17:30)
[2019-08-20 20:30] VITALS: BP 97/55
[2019-08-21] MEDS: MIDODRINE 10 MG PEG SCH ×3 (05:58→21:28)
[2019-08-21] MEDS: OMEPRAZOLE 20 MG CAPSULE.DR GT SCH (05:58)
[2019-08-21] MEDS: MULTIVIT, IRON, MIN NO. 8, FA TABLET GT SCH (05:58)
[2019-08-21 06:00] VITALS: BP 109/60
[2019-08-21 07:36] VITALS: BP 104/56
[2019-08-21] MEDS: FERROUS SULFATE 330 MG/7.5 ML UDC- FOR SA ONLY GT SCH ×2 (08:31→21:27)
[2019-08-21] MEDS: NUTRISOURCE FIBER 4 GM PACKET PEG SCH ×2 (08:31→21:27)
[2019-08-21] MEDS: TIZANIDINE HCL 4 MG TABLET PEG SCH ×2 (08:31→16:55)
[2019-08-21] MEDS: Z GUARD REMEDY PASTE 57 GM TUBE TOP SCH ×2 (08:31→21:28)
[2019-08-21] MEDS: PROTEIN SUPPLEMENT (PROSTAT) 30 ML LIQUID PEG SCH ×2 (08:31→21:27)
[2019-08-21] MEDS: NEOMY/BACITRA/POLYMYXIN B OINT UD PACKET TP SCH ×2 (08:31→21:28)
[2019-08-21] MEDS: HYDROGEN PEROXIDE 3% 118 ML BOTTLE TP SCH ×2 (10:00→21:30)
[2019-08-21] MEDS: ACETAMINOPHEN 650 MG/20 ML UDC- SA PATIENTS-PAIN ONLY PEG SCH (16:55)
[2019-08-21 20:00] VITALS: BP 90/51
[2019-08-22 06:14] VITALS: BP 95/58
[2019-08-22] MEDS: OMEPRAZOLE 20 MG CAPSULE.DR GT SCH (06:14)
[2019-08-22] MEDS: MIDODRINE 10 MG PEG SCH ×3 (06:14→21:08)
[2019-08-22 07:36] VITALS: BP 119/64
[2019-08-22] MEDS: TIZANIDINE HCL 4 MG TABLET PEG SCH ×2 (08:42→17:19)
[2019-08-22] MEDS: NUTRISOURCE FIBER 4 GM PACKET PEG SCH ×2 (08:42→20:09)
[2019-08-22] MEDS: PROTEIN SUPPLEMENT (PROSTAT) 30 ML LIQUID PEG SCH ×2 (08:42→20:09)
[2019-08-22] MEDS: FERROUS SULFATE 330 MG/7.5 ML UDC- FOR SA ONLY GT SCH ×2 (08:42→20:09)
[2019-08-22] MEDS: NEOMY/BACITRA/POLYMYXIN B OINT UD PACKET TP SCH ×2 (08:43→20:09)
[2019-08-22] MEDS: Z GUARD REMEDY PASTE 57 GM TUBE TOP SCH ×2 (08:43→20:09)
[2019-08-22] MEDS: HYDROGEN PEROXIDE 3% 118 ML BOTTLE TP SCH ×2 (09:00→21:25)
[2019-08-22] MEDS: ACETAMINOPHEN 650 MG/20 ML UDC- SA PATIENTS-PAIN ONLY PEG SCH (17:19)
[2019-08-22] MEDS: TWOCAL HN 1,000 ML LIQUID PEG PRN (17:39)
[2019-08-22 22:25] VITALS: BP 94/52
[2019-08-23] MEDS: MIDODRINE 10 MG PEG SCH ×3 (05:38→21:03)
[2019-08-23] MEDS: MULTIVIT, IRON, MIN NO. 8, FA TABLET GT SCH (05:38)
[2019-08-23] MEDS: OMEPRAZOLE 20 MG CAPSULE.DR GT SCH (06:03)
[2019-08-23] MEDS: HYDROGEN PEROXIDE 3% 118 ML BOTTLE TP SCH ×2 (07:17→21:45)
[2019-08-23 07:53] VITALS: BP 104/68
[2019-08-23] MEDS: FERROUS SULFATE 330 MG/7.5 ML UDC- FOR SA ONLY GT SCH ×2 (08:28→20:03)
[2019-08-23] MEDS: Z GUARD REMEDY PASTE 57 GM TUBE TOP SCH ×2 (08:28→20:03)
[2019-08-23] MEDS: NEOMY/BACITRA/POLYMYXIN B OINT UD PACKET TP SCH ×2 (08:28→20:03)
[2019-08-23] MEDS: TIZANIDINE HCL 4 MG TABLET PEG SCH ×2 (08:28→16:16)
[2019-08-23] MEDS: PROTEIN SUPPLEMENT (PROSTAT) 30 ML LIQUID PEG SCH ×2 (08:28→20:03)
[2019-08-23] MEDS: NUTRISOURCE FIBER 4 GM PACKET PEG SCH ×2 (08:28→20:03)
[2019-08-23 14:51] VITALS: BP 118/64
[2019-08-23] MEDS: ACETAMINOPHEN 650 MG/20 ML UDC- SA PATIENTS-PAIN ONLY PEG SCH (16:16)
[2019-08-23 22:36] VITALS: BP 95/48
[2019-08-24] MEDS: OMEPRAZOLE 20 MG CAPSULE.DR GT SCH (05:26)
[2019-08-24] MEDS: MIDODRINE 10 MG PEG SCH ×3 (05:26→21:10)
[2019-08-24 08:05] VITALS: BP 122/59
[2019-08-24] MEDS: PROTEIN SUPPLEMENT (PROSTAT) 30 ML LIQUID PEG SCH ×2 (08:30→20:43)
[2019-08-24] MEDS: TIZANIDINE HCL 4 MG TABLET PEG SCH ×2 (08:30→17:24)
[2019-08-24] MEDS: NUTRISOURCE FIBER 4 GM PACKET PEG SCH ×2 (08:30→20:43)
[2019-08-24] MEDS: FERROUS SULFATE 330 MG/7.5 ML UDC- FOR SA ONLY GT SCH ×2 (08:30→20:43)
[2019-08-24] MEDS: NEOMY/BACITRA/POLYMYXIN B OINT UD PACKET TP SCH ×2 (08:30→20:43)
[2019-08-24] MEDS: Z GUARD REMEDY PASTE 57 GM TUBE TOP SCH ×2 (08:30→20:43)
[2019-08-24] MEDS: BISACODYL 10 MG SUPP.RECT RC PRN (08:47)
[2019-08-24] MEDS: HYDROGEN PEROXIDE 3% 118 ML BOTTLE TP SCH ×2 (09:11→21:13)
[2019-08-24 13:57] VITALS: BP 112/60
[2019-08-24] MEDS: ACETAMINOPHEN 650 MG/20 ML UDC- SA PATIENTS-PAIN ONLY PEG SCH (17:24)
[2019-08-24] MEDS: TWOCAL HN 1,000 ML LIQUID PEG PRN (22:17)
[2019-08-24 22:38] VITALS: BP 93/55
[2019-08-25] MEDS: OMEPRAZOLE 20 MG CAPSULE.DR GT SCH (05:24)
[2019-08-25] MEDS: MIDODRINE 10 MG PEG SCH ×3 (05:24→21:47)
[2019-08-25] MEDS: MULTIVIT, IRON, MIN NO. 8, FA TABLET GT SCH (05:32)
[2019-08-25 07:32] VITALS: BP 105/66
[2019-08-25] MEDS: PROTEIN SUPPLEMENT (PROSTAT) 30 ML LIQUID PEG SCH ×2 (08:37→21:46)
[2019-08-25] MEDS: TIZANIDINE HCL 4 MG TABLET PEG SCH ×2 (08:37→17:10)
[2019-08-25] MEDS: FERROUS SULFATE 330 MG/7.5 ML UDC- FOR SA ONLY GT SCH ×2 (08:37→21:46)
[2019-08-25] MEDS: NUTRISOURCE FIBER 4 GM PACKET PEG SCH ×2 (08:37→21:46)
[2019-08-25] MEDS: TRIAMCINOLONE ACET 0.1% OINT 15 GM TUBE TP PRN (08:38)
[2019-08-25] MEDS: NEOMY/BACITRA/POLYMYXIN B OINT UD PACKET TP SCH ×2 (08:38→21:47)
[2019-08-25] MEDS: Z GUARD REMEDY PASTE 57 GM TUBE TOP SCH ×2 (08:38→21:46)
[2019-08-25] MEDS: HYDROGEN PEROXIDE 3% 118 ML BOTTLE TP SCH ×2 (09:00→21:22)
[2019-08-25 12:59] VITALS: BP 96/63
--- NOTE | 2019-08-25 15:30 | NUR ---
VIDEO CHAT DONE WITH PATIENT'S MOTHER AT THIS TIME.
[2019-08-25] MEDS: ACETAMINOPHEN 650 MG/20 ML UDC- SA PATIENTS-PAIN ONLY PEG SCH (17:11)
[2019-08-25 19:55] VITALS: BP 96/55
[2019-08-26] MEDS: MIDODRINE 10 MG PEG SCH ×3 (06:22→21:51)
[2019-08-26] MEDS: OMEPRAZOLE 20 MG CAPSULE.DR GT SCH (06:22)
[2019-08-26 06:23] VITALS: BP 108/70
[2019-08-26 08:04] VITALS: BP 114/68
[2019-08-26] MEDS: PROTEIN SUPPLEMENT (PROSTAT) 30 ML LIQUID PEG SCH ×2 (08:19→21:50)
[2019-08-26] MEDS: FERROUS SULFATE 330 MG/7.5 ML UDC- FOR SA ONLY GT SCH ×2 (08:19→21:49)
[2019-08-26] MEDS: NUTRISOURCE FIBER 4 GM PACKET PEG SCH ×2 (08:19→21:50)
[2019-08-26] MEDS: TIZANIDINE HCL 4 MG TABLET PEG SCH ×2 (08:20→16:32)
[2019-08-26] MEDS: TRIAMCINOLONE ACET 0.1% OINT 15 GM TUBE TP PRN (08:20)
[2019-08-26] MEDS: Z GUARD REMEDY PASTE 57 GM TUBE TOP SCH ×2 (08:20→21:50)
[2019-08-26] MEDS: NEOMY/BACITRA/POLYMYXIN B OINT UD PACKET TP SCH ×2 (08:20→21:50)
[2019-08-26] MEDS: POLYVINYL ALCOHOL OPHT DROPS 15 ML BOTTLE EACHEYE PRN (08:20)
[2019-08-26] MEDS: HYDROGEN PEROXIDE 3% 118 ML BOTTLE TP SCH ×2 (09:33→21:10)
[2019-08-26 14:30] VITALS: BP 105/70
--- NOTE | 2019-08-26 16:00 | NUR ---
video chat done with pt's mother at this time.
[2019-08-26] MEDS: ACETAMINOPHEN 650 MG/20 ML UDC- SA PATIENTS-PAIN ONLY PEG SCH (16:50)
[2019-08-26 19:54] VITALS: BP 91/50
[2019-08-27] MEDS: TWOCAL HN 1,000 ML LIQUID PEG PRN (05:15)
[2019-08-27] MEDS: OMEPRAZOLE 20 MG CAPSULE.DR GT SCH (05:45)
[2019-08-27] MEDS: MULTIVIT, IRON, MIN NO. 8, FA TABLET GT SCH (05:45)
[2019-08-27] MEDS: MIDODRINE 10 MG PEG SCH ×3 (05:45→22:06)
--- NOTE | 2019-08-27 07:15 | NUR ---
RIGHT ARM RASH NOTED, TRIAMCINOLONE 0.1 % OINTMENT APPLIED ORDERED. WILL CONTINUE MONITORING.
[2019-08-27] MEDS: TRIAMCINOLONE ACET 0.1% OINT 15 GM TUBE TP PRN (07:30)
[2019-08-27 07:57] VITALS: BP 95/51
[2019-08-27] MEDS: FERROUS SULFATE 330 MG/7.5 ML UDC- FOR SA ONLY GT SCH ×2 (08:40→21:00)
[2019-08-27] MEDS: Z GUARD REMEDY PASTE 57 GM TUBE TOP SCH ×2 (08:41→21:00)
[2019-08-27] MEDS: NUTRISOURCE FIBER 4 GM PACKET PEG SCH ×2 (08:41→21:00)
[2019-08-27] MEDS: NEOMY/BACITRA/POLYMYXIN B OINT UD PACKET TP SCH ×2 (08:41→21:00)
[2019-08-27] MEDS: PROTEIN SUPPLEMENT (PROSTAT) 30 ML LIQUID PEG SCH ×2 (08:41→21:00)
[2019-08-27] MEDS: TIZANIDINE HCL 4 MG TABLET PEG SCH ×2 (08:41→16:57)
[2019-08-27] MEDS: HYDROGEN PEROXIDE 3% 118 ML BOTTLE TP SCH ×2 (09:06→21:27)
[2019-08-27 14:20] VITALS: BP 95/60
--- NOTE | 2019-08-27 15:30 | NUR ---
video chat done with Morena patient's mother.
[2019-08-27] MEDS: ACETAMINOPHEN 650 MG/20 ML UDC- SA PATIENTS-PAIN ONLY PEG SCH (16:58)
[2019-08-27] MEDS: POLYVINYL ALCOHOL OPHT DROPS 15 ML BOTTLE EACHEYE PRN (16:58)
[2019-08-27 19:55] VITALS: BP 94/51
[2019-08-28] MEDS: OMEPRAZOLE 20 MG CAPSULE.DR GT SCH (05:43)
[2019-08-28] MEDS: MIDODRINE 10 MG PEG SCH ×3 (05:43→22:26)
[2019-08-28 07:49] VITALS: BP 96/54
[2019-08-28] MEDS: NUTRISOURCE FIBER 4 GM PACKET PEG SCH ×2 (08:27→20:03)
[2019-08-28] MEDS: Z GUARD REMEDY PASTE 57 GM TUBE TOP SCH ×2 (08:27→20:03)
[2019-08-28] MEDS: FERROUS SULFATE 330 MG/7.5 ML UDC- FOR SA ONLY GT SCH ×2 (08:27→20:03)
[2019-08-28] MEDS: TIZANIDINE HCL 4 MG TABLET PEG SCH ×2 (08:27→17:25)
[2019-08-28] MEDS: PROTEIN SUPPLEMENT (PROSTAT) 30 ML LIQUID PEG SCH ×2 (08:27→20:03)
[2019-08-28] MEDS: NEOMY/BACITRA/POLYMYXIN B OINT UD PACKET TP SCH ×2 (08:27→20:03)
[2019-08-28] MEDS: HYDROGEN PEROXIDE 3% 118 ML BOTTLE TP SCH ×2 (10:00→21:31)
[2019-08-28 13:52] VITALS: BP 99/66
[2019-08-28] MEDS: ACETAMINOPHEN 650 MG/20 ML UDC- SA PATIENTS-PAIN ONLY PEG SCH (17:25)
[2019-08-29] MEDS: TWOCAL HN 1,000 ML LIQUID PEG PRN (05:00)
[2019-08-29] MEDS: OMEPRAZOLE 20 MG CAPSULE.DR GT SCH (05:50)
[2019-08-29] MEDS: MULTIVIT, IRON, MIN NO. 8, FA TABLET GT SCH (05:50)
[2019-08-29] MEDS: MIDODRINE 10 MG PEG SCH ×3 (05:50→21:46)
[2019-08-29 07:47] VITALS: BP 102/53
[2019-08-29] MEDS: NUTRISOURCE FIBER 4 GM PACKET PEG SCH ×2 (08:28→21:45)
[2019-08-29] MEDS: TIZANIDINE HCL 4 MG TABLET PEG SCH ×2 (08:28→16:25)
[2019-08-29] MEDS: FERROUS SULFATE 330 MG/7.5 ML UDC- FOR SA ONLY GT SCH ×2 (08:28→21:45)
[2019-08-29] MEDS: PROTEIN SUPPLEMENT (PROSTAT) 30 ML LIQUID PEG SCH ×2 (08:28→21:45)
[2019-08-29] MEDS: Z GUARD REMEDY PASTE 57 GM TUBE TOP SCH ×2 (08:29→21:45)
[2019-08-29] MEDS: NEOMY/BACITRA/POLYMYXIN B OINT UD PACKET TP SCH ×2 (08:29→21:46)
[2019-08-29] MEDS: HYDROGEN PEROXIDE 3% 118 ML BOTTLE TP SCH ×2 (09:00→21:35)
[2019-08-29 14:14] VITALS: BP 92/56
[2019-08-29] MEDS: ACETAMINOPHEN 650 MG/20 ML UDC- SA PATIENTS-PAIN ONLY PEG SCH (16:25)
[2019-08-29 20:10] VITALS: BP 98/53
[2019-08-30] MEDS: OMEPRAZOLE 20 MG CAPSULE.DR GT SCH (06:55)
[2019-08-30] MEDS: MIDODRINE 10 MG PEG SCH ×3 (06:55→22:29)
[2019-08-30 07:13] VITALS: BP 106/58
[2019-08-30 07:46] VITALS: BP 94/57
[2019-08-30] MEDS: NUTRISOURCE FIBER 4 GM PACKET PEG SCH ×2 (09:01→20:46)
[2019-08-30] MEDS: PROTEIN SUPPLEMENT (PROSTAT) 30 ML LIQUID PEG SCH ×2 (09:01→20:46)
[2019-08-30] MEDS: FERROUS SULFATE 330 MG/7.5 ML UDC- FOR SA ONLY GT SCH ×2 (09:01→20:46)
[2019-08-30] MEDS: Z GUARD REMEDY PASTE 57 GM TUBE TOP SCH ×2 (09:02→20:46)
[2019-08-30] MEDS: TIZANIDINE HCL 4 MG TABLET PEG SCH ×2 (09:02→17:01)
[2019-08-30] MEDS: NEOMY/BACITRA/POLYMYXIN B OINT UD PACKET TP SCH ×2 (09:02→20:46)
[2019-08-30] MEDS: HYDROGEN PEROXIDE 3% 118 ML BOTTLE TP SCH ×2 (09:20→21:06)
[2019-08-30 13:00] VITALS: BP 97/57
[2019-08-30] MEDS: ACETAMINOPHEN 650 MG/20 ML UDC- SA PATIENTS-PAIN ONLY PEG SCH (17:01)
[2019-08-30 20:00] VITALS: BP 106/56
[2019-08-31] MEDS: MIDODRINE 10 MG PEG SCH ×3 (05:34→21:47)
[2019-08-31] MEDS: OMEPRAZOLE 20 MG CAPSULE.DR GT SCH (05:34)
[2019-08-31] MEDS: MULTIVIT, IRON, MIN NO. 8, FA TABLET GT SCH (05:34)
[2019-08-31] MEDS: TIZANIDINE HCL 4 MG TABLET PEG SCH ×2 (08:47→17:56)
[2019-08-31] MEDS: PROTEIN SUPPLEMENT (PROSTAT) 30 ML LIQUID PEG SCH ×2 (08:47→21:46)
[2019-08-31] MEDS: NUTRISOURCE FIBER 4 GM PACKET PEG SCH ×2 (08:47→21:46)
[2019-08-31] MEDS: FERROUS SULFATE 330 MG/7.5 ML UDC- FOR SA ONLY GT SCH ×2 (08:47→21:46)
[2019-08-31] MEDS: Z GUARD REMEDY PASTE 57 GM TUBE TOP SCH ×2 (08:47→21:46)
[2019-08-31] MEDS: NEOMY/BACITRA/POLYMYXIN B OINT UD PACKET TP SCH ×2 (08:48→21:47)
[2019-08-31 08:58] VITALS: BP 101/58
[2019-08-31] MEDS: HYDROGEN PEROXIDE 3% 118 ML BOTTLE TP SCH ×2 (09:51→21:45)
[2019-08-31] MEDS: ACETAMINOPHEN 650 MG/20 ML UDC- SA PATIENTS-PAIN ONLY PEG SCH (17:57)
[2019-08-31] MEDS: TWOCAL HN 1,000 ML LIQUID PEG PRN (17:59)
--- NOTE | 2019-08-31 18:17 | NUR ---
Pt stable stable at this time. No resp distress. Video chat provided with the family. Family verbalized gratitude.
[2019-08-31 21:04] VITALS: BP 100/52
[2019-09-01] MEDS: OMEPRAZOLE 20 MG CAPSULE.DR GT SCH (05:36)
[2019-09-01] MEDS: MIDODRINE 10 MG PEG SCH ×3 (05:36→21:20)
--- NOTE | 2019-09-01 06:26 | NUR ---
Seen by Marta Guerin NP with no new orders.
[2019-09-01 07:49] VITALS: BP 121/71
[2019-09-01] MEDS: PROTEIN SUPPLEMENT (PROSTAT) 30 ML LIQUID PEG SCH ×2 (08:47→21:19)
[2019-09-01] MEDS: FERROUS SULFATE 330 MG/7.5 ML UDC- FOR SA ONLY GT SCH ×2 (08:47→21:19)
[2019-09-01] MEDS: NUTRISOURCE FIBER 4 GM PACKET PEG SCH ×2 (08:47→21:19)
[2019-09-01] MEDS: NEOMY/BACITRA/POLYMYXIN B OINT UD PACKET TP SCH (08:48)
[2019-09-01] MEDS: TIZANIDINE HCL 4 MG TABLET PEG SCH ×2 (08:48→17:58)
[2019-09-01] MEDS: Z GUARD REMEDY PASTE 57 GM TUBE TOP SCH ×2 (08:48→21:20)
[2019-09-01] MEDS: HYDROGEN PEROXIDE 3% 118 ML BOTTLE TP SCH ×2 (10:00→21:38)
[2019-09-01] MEDS: ACETAMINOPHEN 650 MG/20 ML UDC- SA PATIENTS-PAIN ONLY PEG SCH (17:58)
[2019-09-01 20:43] VITALS: BP 102/56
[2019-09-02] MEDS: OMEPRAZOLE 20 MG CAPSULE.DR GT SCH (05:49)
[2019-09-02] MEDS: MIDODRINE 10 MG PEG SCH ×3 (05:49→21:24)
[2019-09-02] MEDS: MULTIVIT, IRON, MIN NO. 8, FA TABLET GT SCH (05:49)
[2019-09-02 07:53] VITALS: BP 105/58
[2019-09-02] MEDS: HYDROGEN PEROXIDE 3% 118 ML BOTTLE TP SCH ×2 (09:00→21:11)
[2019-09-02] MEDS: NUTRISOURCE FIBER 4 GM PACKET PEG SCH ×2 (09:04→21:23)
[2019-09-02] MEDS: FERROUS SULFATE 330 MG/7.5 ML UDC- FOR SA ONLY GT SCH ×2 (09:04→21:23)
[2019-09-02] MEDS: PROTEIN SUPPLEMENT (PROSTAT) 30 ML LIQUID PEG SCH ×2 (09:05→21:23)
[2019-09-02] MEDS: TIZANIDINE HCL 4 MG TABLET PEG SCH ×2 (09:05→16:57)
[2019-09-02] MEDS: Z GUARD REMEDY PASTE 57 GM TUBE TOP SCH ×2 (09:05→21:23)
--- NOTE | 2019-09-02 15:33 | NUR ---
JEY informed patient's mother Morena via email that the next IDT meeting for the patient is scheduled for 09/09/2019 at 11am. JEY asked Morena to replay to the email and let this SW know if Morena would like to participate in the meeting thru speaker phone.
--- NOTE | 2019-09-02 16:43 | NUR ---
Pt's v/s wnl. Video chat provided with the family. Family verbalized appreciation on the effort done of the whole staff.
[2019-09-02] MEDS: ACETAMINOPHEN 650 MG/20 ML UDC- SA PATIENTS-PAIN ONLY PEG SCH (16:56)
[2019-09-02 20:16] VITALS: BP 87/52
[2019-09-02 21:00] VITALS: BP 104/60
[2019-09-03] MEDS: MIDODRINE 10 MG PEG SCH ×3 (06:09→21:14)
[2019-09-03] MEDS: OMEPRAZOLE 20 MG CAPSULE.DR GT SCH (06:09)
[2019-09-03] MEDS: HYDROGEN PEROXIDE 3% 118 ML BOTTLE TP SCH ×2 (07:27→21:14)
[2019-09-03 07:38] VITALS: BP 101/59
[2019-09-03] MEDS: FERROUS SULFATE 330 MG/7.5 ML UDC- FOR SA ONLY GT SCH ×2 (09:01→21:14)
[2019-09-03] MEDS: NUTRISOURCE FIBER 4 GM PACKET PEG SCH ×2 (09:01→21:14)
[2019-09-03] MEDS: Z GUARD REMEDY PASTE 57 GM TUBE TOP SCH ×2 (09:02→21:14)
[2019-09-03] MEDS: TIZANIDINE HCL 4 MG TABLET PEG SCH ×2 (09:02→17:00)
[2019-09-03] MEDS: PROTEIN SUPPLEMENT (PROSTAT) 30 ML LIQUID PEG SCH ×2 (09:02→21:14)
--- NOTE | 2019-09-03 12:42 | NUR ---
JEY received patient's C D Still Operator Payee Report form from [facility]. JEY informed facility junior staff accountant Logan Gonsales via email regarding receipt of this form, and that this SW will be forwarding the form to him via interoffice mail, in order for Logan Dickerson to complete it. Logan Dickerson responded back via email stating that he will complete the form upon receipt. JEY put the form in the interoffice mail, addressed to Logan Gonsales.
--- NOTE | 2019-09-03 15:30 | NUR ---
VIDEO CHAT DONE VIA ZOOM X 5 MIN. WITH PT'S MOTHER.
[2019-09-03] MEDS: ACETAMINOPHEN 650 MG/20 ML UDC- SA PATIENTS-PAIN ONLY PEG SCH (17:59)
[2019-09-03 20:17] VITALS: BP 91/87
[2019-09-04 06:00] VITALS: BP 106/60
[2019-09-04] MEDS: OMEPRAZOLE 20 MG CAPSULE.DR GT SCH (06:38)
[2019-09-04] MEDS: MIDODRINE 10 MG PEG SCH ×3 (06:38→22:06)
[2019-09-04] MEDS: MULTIVIT, IRON, MIN NO. 8, FA TABLET GT SCH (06:38)
[2019-09-04 07:27] VITALS: BP 94/57
[2019-09-04] MEDS: NUTRISOURCE FIBER 4 GM PACKET PEG SCH ×2 (08:47→21:00)
[2019-09-04] MEDS: Z GUARD REMEDY PASTE 57 GM TUBE TOP SCH ×2 (08:49→21:00)
[2019-09-04] MEDS: FERROUS SULFATE 330 MG/7.5 ML UDC- FOR SA ONLY GT SCH ×2 (08:49→21:00)
[2019-09-04] MEDS: TIZANIDINE HCL 4 MG TABLET PEG SCH ×2 (08:49→16:13)
[2019-09-04] MEDS: PROTEIN SUPPLEMENT (PROSTAT) 30 ML LIQUID PEG SCH ×2 (08:52→21:00)
[2019-09-04] MEDS: HYDROGEN PEROXIDE 3% 118 ML BOTTLE TP SCH ×2 (10:00→21:00)
--- NOTE | 2019-09-04 10:28 | NUR ---
JEY informed patient mother Morena, via email, that patient received a stimulus check from the government, directly deposited into her trust account with the hospital. JEY also informed Morena that the money can by used to purchase any personal items or services for the patient that would be of support for her ongoing care at the subacute facility.
--- NOTE | 2019-09-04 11:36 | NUR ---
JEY received an email response back from patient's mother Morena, in response to the email this SW sent Morena earlier today regarding the stimulus check. Morena thanked this SW for notifying her regarding the stimulus check, and stated that she will look into items and services for her daughter that would be beneficial to her ongoing stay in the subacute facility. Morena stated she will let SW know once she comes up with some suggestions.
[2019-09-04] MEDS: ACETAMINOPHEN 650 MG/20 ML UDC- SA PATIENTS-PAIN ONLY PEG SCH (16:13)
[2019-09-04 20:03] VITALS: BP 100/66
[2019-09-05] MEDS: MIDODRINE 10 MG PEG SCH ×3 (06:21→21:49)
[2019-09-05] MEDS: OMEPRAZOLE 20 MG CAPSULE.DR GT SCH (06:21)
[2019-09-05 07:42] VITALS: BP 89/56
[2019-09-05] MEDS: NUTRISOURCE FIBER 4 GM PACKET PEG SCH ×2 (09:28→21:49)
[2019-09-05] MEDS: TIZANIDINE HCL 4 MG TABLET PEG SCH ×2 (09:28→17:15)
[2019-09-05] MEDS: PROTEIN SUPPLEMENT (PROSTAT) 30 ML LIQUID PEG SCH ×2 (09:28→21:49)
[2019-09-05] MEDS: FERROUS SULFATE 330 MG/7.5 ML UDC- FOR SA ONLY GT SCH ×2 (09:28→21:49)
[2019-09-05] MEDS: Z GUARD REMEDY PASTE 57 GM TUBE TOP SCH ×2 (09:30→21:49)
[2019-09-05] MEDS: HYDROGEN PEROXIDE 3% 118 ML BOTTLE TP SCH ×2 (09:52→21:18)
[2019-09-05] MEDS: ACETAMINOPHEN 650 MG/20 ML UDC- SA PATIENTS-PAIN ONLY PEG SCH (17:15)
[2019-09-05 22:15] VITALS: BP 98/48
[2019-09-06] MEDS: TWOCAL HN 1,000 ML LIQUID PEG PRN (04:00)
[2019-09-06] MEDS: MIDODRINE 10 MG PEG SCH ×3 (05:56→21:09)
[2019-09-06] MEDS: MULTIVIT, IRON, MIN NO. 8, FA TABLET GT SCH (05:56)
[2019-09-06] MEDS: OMEPRAZOLE 20 MG CAPSULE.DR GT SCH (05:56)
[2019-09-06 05:57] VITALS: BP 100/56
[2019-09-06] MEDS: NUTRISOURCE FIBER 4 GM PACKET PEG SCH ×2 (08:03→21:09)
[2019-09-06] MEDS: TIZANIDINE HCL 4 MG TABLET PEG SCH ×2 (08:03→17:21)
[2019-09-06] MEDS: FERROUS SULFATE 330 MG/7.5 ML UDC- FOR SA ONLY GT SCH ×2 (08:03→21:09)
[2019-09-06] MEDS: PROTEIN SUPPLEMENT (PROSTAT) 30 ML LIQUID PEG SCH ×2 (08:03→21:09)
[2019-09-06] MEDS: Z GUARD REMEDY PASTE 57 GM TUBE TOP SCH ×2 (08:03→21:09)
[2019-09-06] MEDS: HYDROGEN PEROXIDE 3% 118 ML BOTTLE TP SCH ×2 (09:00→21:00)
--- NOTE | 2019-09-06 16:30 | NUR ---
Assisted with video chat with pt's mother at this time.
[2019-09-06] MEDS: ACETAMINOPHEN 650 MG/20 ML UDC- SA PATIENTS-PAIN ONLY PEG SCH (17:21)
[2019-09-06 22:48] VITALS: BP 101/59
[2019-09-07] MEDS: OMEPRAZOLE 20 MG CAPSULE.DR GT SCH (05:02)
[2019-09-07] MEDS: MIDODRINE 10 MG PEG SCH ×3 (05:02→22:00)
[2019-09-07] MEDS: PROTEIN SUPPLEMENT (PROSTAT) 30 ML LIQUID PEG SCH ×2 (08:11→20:58)
[2019-09-07] MEDS: FERROUS SULFATE 330 MG/7.5 ML UDC- FOR SA ONLY GT SCH ×2 (08:11→20:58)
[2019-09-07] MEDS: TIZANIDINE HCL 4 MG TABLET PEG SCH ×2 (08:11→17:21)
[2019-09-07] MEDS: NUTRISOURCE FIBER 4 GM PACKET PEG SCH ×2 (08:11→20:58)
[2019-09-07] MEDS: Z GUARD REMEDY PASTE 57 GM TUBE TOP SCH ×2 (08:11→20:58)
[2019-09-07] MEDS: HYDROGEN PEROXIDE 3% 118 ML BOTTLE TP SCH ×2 (10:00→21:51)
[2019-09-07 14:33] VITALS: BP 105/58
[2019-09-07] MEDS: ACETAMINOPHEN 650 MG/20 ML UDC- SA PATIENTS-PAIN ONLY PEG SCH (17:21)
[2019-09-07 23:18] VITALS: BP 112/56
[2019-09-08] MEDS: MIDODRINE 10 MG PEG SCH ×3 (05:54→22:11)
[2019-09-08] MEDS: OMEPRAZOLE 20 MG CAPSULE.DR GT SCH (05:54)
[2019-09-08] MEDS: MULTIVIT, IRON, MIN NO. 8, FA TABLET GT SCH (05:54)
[2019-09-08 07:00] VITALS: BP 115/53
[2019-09-08 07:53] VITALS: BP 109/67
[2019-09-08] MEDS: Z GUARD REMEDY PASTE 57 GM TUBE TOP SCH ×2 (08:07→20:29)
[2019-09-08] MEDS: FERROUS SULFATE 330 MG/7.5 ML UDC- FOR SA ONLY GT SCH ×2 (08:07→20:29)
[2019-09-08] MEDS: NUTRISOURCE FIBER 4 GM PACKET PEG SCH ×2 (08:07→20:29)
[2019-09-08] MEDS: PROTEIN SUPPLEMENT (PROSTAT) 30 ML LIQUID PEG SCH ×2 (08:07→20:29)
[2019-09-08] MEDS: TIZANIDINE HCL 4 MG TABLET PEG SCH ×2 (08:07→17:27)
[2019-09-08] MEDS: HYDROGEN PEROXIDE 3% 118 ML BOTTLE TP SCH ×2 (09:00→21:29)
--- NOTE | 2019-09-08 14:22 | NUR ---
SW received another email from patient's mother Morena, who stated that she would like to look into the Eye tracking communication device for her daughter. Morena stated that she would like to use the stimulus check towards purchasing this device, and that once the visitation restrictions are lifted, she will work with this SW to coordinate the evaluation and purchasing of the Eye tracking communication device.
--- NOTE | 2019-09-08 15:15 | NUR ---
ZOOM MEETING PROVIDED TO PATIENT'S MOTHER, DEMETRICE.
[2019-09-08] MEDS: ACETAMINOPHEN 650 MG/20 ML UDC- SA PATIENTS-PAIN ONLY PEG SCH (17:27)
[2019-09-08 20:01] VITALS: BP 103/60
[2019-09-09] MEDS: MIDODRINE 10 MG PEG SCH ×3 (06:38→21:35)
[2019-09-09] MEDS: OMEPRAZOLE 20 MG CAPSULE.DR GT SCH (06:38)
[2019-09-09 06:57] VITALS: BP 109/52
[2019-09-09 07:43] VITALS: BP 114/65
[2019-09-09] MEDS: HYDROGEN PEROXIDE 3% 118 ML BOTTLE TP SCH ×2 (09:07→21:28)
[2019-09-09] MEDS: FERROUS SULFATE 330 MG/7.5 ML UDC- FOR SA ONLY GT SCH ×2 (09:24→21:34)
[2019-09-09] MEDS: PROTEIN SUPPLEMENT (PROSTAT) 30 ML LIQUID PEG SCH ×2 (09:24→21:34)
[2019-09-09] MEDS: NUTRISOURCE FIBER 4 GM PACKET PEG SCH ×2 (09:24→21:34)
[2019-09-09] MEDS: Z GUARD REMEDY PASTE 57 GM TUBE TOP SCH ×2 (09:26→21:35)
[2019-09-09] MEDS: TIZANIDINE HCL 4 MG TABLET PEG SCH ×2 (09:26→16:57)
--- NOTE | 2019-09-09 15:10 | NUR ---
INTERDISCIPLINARY PLAN OF CARE CONFERENCE was held today. Patient's mother was not available to participate in the meeting. Dr. Caraballo and the Interdisciplinary Team reviewed the current plan of care in detail. RN reported on patient's medical condition. No major changes in condition were reported. See RN IDT conference notes. See also all other disciplines IDT notes and physician's progress notes for additional details.
--- NOTE | 2019-09-09 16:10 | NUR ---
Zoom meeting provided for the patient and her mother.
--- NOTE | 2019-09-09 16:33 | NUR ---
Pharmacy Update from Today's 09/09/19 IDT Meeting VS: Temp 99 BP 115/53 HR 101 LABS: (from 07/09/19, no new labs) Wbc 7.5 H/H 13.1/39 Plt 219 Na 135 K 3.5 Cl 100 CO2 30 BUN/SCr 16/0.6 BS 100 Ca 8.9 MEDICATION USE REVIEWED: > Pt not on any anti-epileptic or anti-psych medications > Pt on Midodrine 10mg q8hr ATC with parameters for hold SBP >110 > PRN MED USAGE: (July) Tylenol for pain used x 1 Tylenol for temp used x 0 Artificial tears used x 2 Docusate PRN x 0 Bisacodyl PRN used x 0 Benadryl PRN used x 0 (for resolved rxn from family's moisturizer while OOP) NEW ORDERS NOTED: > Per Rx rec, Benadryl PRN d/c'd 08/11 Patient reviewed and discussed at IDT with no medication issues at this time, remains stable on current medications. PRN benadryl d/c'd per rx rec as was from temporary reaction of lotion from home now resolved. No further recommendations at this time, will continue to follow
[2019-09-09] MEDS: ACETAMINOPHEN 650 MG/20 ML UDC- SA PATIENTS-PAIN ONLY PEG SCH (17:53)
[2019-09-09 20:03] VITALS: BP 100/64
[2019-09-09 21:36] VITALS: BP 98/64
[2019-09-10] MEDS: OMEPRAZOLE 20 MG CAPSULE.DR GT SCH (05:13)
[2019-09-10] MEDS: MIDODRINE 10 MG PEG SCH ×3 (05:13→21:37)
[2019-09-10] MEDS: TWOCAL HN 1,000 ML LIQUID PEG PRN (05:13)
[2019-09-10] MEDS: MULTIVIT, IRON, MIN NO. 8, FA TABLET GT SCH (05:58)
[2019-09-10] MEDS: HYDROGEN PEROXIDE 3% 118 ML BOTTLE TP SCH ×2 (07:29→21:15)
[2019-09-10 07:50] VITALS: BP 111/65
[2019-09-10] MEDS: NUTRISOURCE FIBER 4 GM PACKET PEG SCH ×2 (08:03→21:37)
[2019-09-10] MEDS: PROTEIN SUPPLEMENT (PROSTAT) 30 ML LIQUID PEG SCH ×2 (08:03→21:37)
[2019-09-10] MEDS: Z GUARD REMEDY PASTE 57 GM TUBE TOP SCH ×2 (08:03→21:37)
[2019-09-10] MEDS: TIZANIDINE HCL 4 MG TABLET PEG SCH ×2 (08:04→17:00)
[2019-09-10] MEDS: FERROUS SULFATE 330 MG/7.5 ML UDC- FOR SA ONLY GT SCH ×2 (08:05→21:37)
[2019-09-10] MEDS: DOCUSATE SODIUM 100 MG/10 ML LIQUID UDC GT PRN (09:15)
--- NOTE | 2019-09-10 16:40 | NUR ---
Pt assisted to Zoom with her family/mother. All needs attended to, will continue to monitor.
[2019-09-10] MEDS: ACETAMINOPHEN 650 MG/20 ML UDC- SA PATIENTS-PAIN ONLY PEG SCH (17:00)
[2019-09-10 20:25] VITALS: BP 90/57
[2019-09-11 06:00] VITALS: BP 121/62
[2019-09-11] MEDS: MIDODRINE 10 MG PEG SCH ×3 (06:00→21:37)
[2019-09-11] MEDS: OMEPRAZOLE 20 MG CAPSULE.DR GT SCH (06:00)
[2019-09-11 07:41] VITALS: BP 112/63
[2019-09-11] MEDS: NUTRISOURCE FIBER 4 GM PACKET PEG SCH ×2 (09:07→21:37)
[2019-09-11] MEDS: Z GUARD REMEDY PASTE 57 GM TUBE TOP SCH ×2 (09:07→21:37)
[2019-09-11] MEDS: FERROUS SULFATE 330 MG/7.5 ML UDC- FOR SA ONLY GT SCH ×2 (09:07→21:37)
[2019-09-11] MEDS: TIZANIDINE HCL 4 MG TABLET PEG SCH ×2 (09:07→16:25)
[2019-09-11] MEDS: PROTEIN SUPPLEMENT (PROSTAT) 30 ML LIQUID PEG SCH ×2 (09:07→21:37)
[2019-09-11] MEDS: HYDROGEN PEROXIDE 3% 118 ML BOTTLE TP SCH ×2 (10:10→21:00)
--- NOTE | 2019-09-11 16:00 | NUR ---
Provided video chat to pt. and her mother with no problem, pt kept clean and comfortable, all needs attended and anticipated.
[2019-09-11] MEDS: ACETAMINOPHEN 650 MG/20 ML UDC- SA PATIENTS-PAIN ONLY PEG SCH (16:25)
[2019-09-11 20:00] VITALS: BP 91/57
[2019-09-12] MEDS: TWOCAL HN 1,000 ML LIQUID PEG PRN (05:24)
[2019-09-12] MEDS: OMEPRAZOLE 20 MG CAPSULE.DR GT SCH (05:27)
[2019-09-12] MEDS: MIDODRINE 10 MG PEG SCH ×3 (05:27→21:03)
[2019-09-12 05:30] VITALS: BP 86/65
[2019-09-12] MEDS: MULTIVIT, IRON, MIN NO. 8, FA TABLET GT SCH (05:57)
[2019-09-12 07:37] VITALS: BP 112/59
[2019-09-12] MEDS: FERROUS SULFATE 330 MG/7.5 ML UDC- FOR SA ONLY GT SCH ×2 (08:28→20:02)
[2019-09-12] MEDS: NUTRISOURCE FIBER 4 GM PACKET PEG SCH ×2 (08:28→20:02)
[2019-09-12] MEDS: PROTEIN SUPPLEMENT (PROSTAT) 30 ML LIQUID PEG SCH ×2 (08:29→20:02)
[2019-09-12] MEDS: TIZANIDINE HCL 4 MG TABLET PEG SCH ×2 (08:29→16:47)
[2019-09-12] MEDS: Z GUARD REMEDY PASTE 57 GM TUBE TOP SCH ×2 (08:30→20:02)
[2019-09-12] MEDS: HYDROGEN PEROXIDE 3% 118 ML BOTTLE TP SCH ×2 (09:50→19:00)
[2019-09-12 14:00] VITALS: BP 105/61
--- NOTE | 2019-09-12 16:00 | NUR ---
Video chat provided with pts mother.
[2019-09-12] MEDS: ACETAMINOPHEN 650 MG/20 ML UDC- SA PATIENTS-PAIN ONLY PEG SCH (16:48)
--- NOTE | 2019-09-12 18:00 | NUR ---
SEEN AND EXAMINED BY DR. FRANK AND WITH NNO.
[2019-09-12 20:16] VITALS: BP 116/59
--- NOTE | 2019-09-12 21:04 | NUR ---
2200 MIDODRINE 10MG TABLET HELD ORDERED DUE TO SBP GREATER THAN 110. BP: 116/59, HR: 73. WILL CONTINUE TO MONITOR.
[2019-09-13] MEDS: MIDODRINE 10 MG PEG SCH ×3 (05:13→21:17)
[2019-09-13] MEDS: OMEPRAZOLE 20 MG CAPSULE.DR GT SCH (05:13)
[2019-09-13 07:31] VITALS: BP 112/61
[2019-09-13] MEDS: HYDROGEN PEROXIDE 3% 118 ML BOTTLE TP SCH ×2 (07:56→21:56)
[2019-09-13] MEDS: TIZANIDINE HCL 4 MG TABLET PEG SCH ×2 (08:55→17:33)
[2019-09-13] MEDS: NUTRISOURCE FIBER 4 GM PACKET PEG SCH ×2 (08:55→20:04)
[2019-09-13] MEDS: Z GUARD REMEDY PASTE 57 GM TUBE TOP SCH ×2 (08:55→20:05)
[2019-09-13] MEDS: PROTEIN SUPPLEMENT (PROSTAT) 30 ML LIQUID PEG SCH ×2 (08:55→20:05)
[2019-09-13] MEDS: FERROUS SULFATE 330 MG/7.5 ML UDC- FOR SA ONLY GT SCH ×2 (08:55→20:04)
[2019-09-13] MEDS: ACETAMINOPHEN 650 MG/20 ML UDC- SA PATIENTS-PAIN ONLY PEG SCH (17:33)
[2019-09-13 20:22] VITALS: BP 99/62
[2019-09-13] MEDS: TWOCAL HN 1,000 ML LIQUID PEG PRN (22:40)
[2019-09-14] MEDS: MIDODRINE 10 MG PEG SCH ×3 (05:32→21:08)
[2019-09-14] MEDS: OMEPRAZOLE 20 MG CAPSULE.DR GT SCH (05:32)
[2019-09-14] MEDS: MULTIVIT, IRON, MIN NO. 8, FA TABLET GT SCH (05:32)
[2019-09-14 08:07] VITALS: BP 101/57
[2019-09-14] MEDS: HYDROGEN PEROXIDE 3% 118 ML BOTTLE TP SCH ×2 (08:18→21:18)
[2019-09-14] MEDS: FERROUS SULFATE 330 MG/7.5 ML UDC- FOR SA ONLY GT SCH ×2 (08:46→20:11)
[2019-09-14] MEDS: PROTEIN SUPPLEMENT (PROSTAT) 30 ML LIQUID PEG SCH ×2 (08:46→20:11)
[2019-09-14] MEDS: Z GUARD REMEDY PASTE 57 GM TUBE TOP SCH ×2 (08:46→20:11)
[2019-09-14] MEDS: TIZANIDINE HCL 4 MG TABLET PEG SCH ×2 (08:46→17:19)
[2019-09-14] MEDS: NUTRISOURCE FIBER 4 GM PACKET PEG SCH ×2 (08:46→20:11)
[2019-09-14] MEDS: ACETAMINOPHEN 650 MG/20 ML UDC- SA PATIENTS-PAIN ONLY PEG SCH (17:19)
[2019-09-14 20:04] VITALS: BP 93/54
[2019-09-15] MEDS: OMEPRAZOLE 20 MG CAPSULE.DR GT SCH (05:30)
[2019-09-15] MEDS: MIDODRINE 10 MG PEG SCH ×3 (05:30→21:40)
--- NOTE | 2019-09-15 05:30 | NUR ---
0600 MIDODRINE 10MG TABLET HELD ORDERED DUE TO SBP GREATER THAN 110. BP: 118/78, HR: 91. WILL CONTINUE TO MONITOR.
[2019-09-15 07:38] VITALS: BP 112/65
[2019-09-15] MEDS: FERROUS SULFATE 330 MG/7.5 ML UDC- FOR SA ONLY GT SCH ×2 (08:48→21:40)
[2019-09-15] MEDS: NUTRISOURCE FIBER 4 GM PACKET PEG SCH ×2 (08:48→21:40)
[2019-09-15] MEDS: PROTEIN SUPPLEMENT (PROSTAT) 30 ML LIQUID PEG SCH ×2 (08:48→21:40)
[2019-09-15] MEDS: Z GUARD REMEDY PASTE 57 GM TUBE TOP SCH ×2 (08:49→21:40)
[2019-09-15] MEDS: TIZANIDINE HCL 4 MG TABLET PEG SCH ×2 (08:49→17:16)
[2019-09-15] MEDS: HYDROGEN PEROXIDE 3% 118 ML BOTTLE TP SCH ×2 (09:00→21:19)
--- NOTE | 2019-09-15 10:00 | NUR ---
SEEN BY ALICIA COTTO N.P. AND WITH NNO.
[2019-09-15] MEDS: ACETAMINOPHEN 650 MG/20 ML UDC- SA PATIENTS-PAIN ONLY PEG SCH (17:16)
[2019-09-15 20:36] VITALS: BP 103/63
[2019-09-16] MEDS: TWOCAL HN 1,000 ML LIQUID PEG PRN (04:58)
[2019-09-16] MEDS: OMEPRAZOLE 20 MG CAPSULE.DR GT SCH (05:13)
[2019-09-16] MEDS: MULTIVIT, IRON, MIN NO. 8, FA TABLET GT SCH (05:13)
[2019-09-16] MEDS: MIDODRINE 10 MG PEG SCH ×3 (05:13→21:30)
[2019-09-16 05:14] VITALS: BP 98/61
[2019-09-16 07:28] VITALS: BP 108/66
[2019-09-16] MEDS: FERROUS SULFATE 330 MG/7.5 ML UDC- FOR SA ONLY GT SCH ×2 (08:43→21:28)
[2019-09-16] MEDS: NUTRISOURCE FIBER 4 GM PACKET PEG SCH ×2 (08:43→21:29)
[2019-09-16] MEDS: PROTEIN SUPPLEMENT (PROSTAT) 30 ML LIQUID PEG SCH ×2 (08:43→21:30)
[2019-09-16] MEDS: TIZANIDINE HCL 4 MG TABLET PEG SCH ×2 (08:43→17:00)
[2019-09-16] MEDS: Z GUARD REMEDY PASTE 57 GM TUBE TOP SCH ×2 (08:44→21:30)
[2019-09-16] MEDS: HYDROGEN PEROXIDE 3% 118 ML BOTTLE TP SCH ×2 (09:35→21:49)
[2019-09-16 14:30] VITALS: BP 107/65
--- NOTE | 2019-09-16 16:00 | NUR ---
Video chat assisted with pt's, mother.
[2019-09-16] MEDS: ACETAMINOPHEN 650 MG/20 ML UDC- SA PATIENTS-PAIN ONLY PEG SCH (17:00)
[2019-09-16 20:10] VITALS: BP 92/61
--- NOTE | 2019-09-16 20:23 | NUR ---
SEEN BY ALICIA COTTO N.P. AND WITH NNO.
[2019-09-17] MEDS: OMEPRAZOLE 20 MG CAPSULE.DR GT SCH (05:31)
[2019-09-17] MEDS: MIDODRINE 10 MG PEG SCH ×3 (05:31→22:00)
[2019-09-17] MEDS: FERROUS SULFATE 330 MG/7.5 ML UDC- FOR SA ONLY GT SCH ×2 (08:21→21:58)
[2019-09-17] MEDS: Z GUARD REMEDY PASTE 57 GM TUBE TOP SCH ×2 (08:22→21:59)
[2019-09-17] MEDS: PROTEIN SUPPLEMENT (PROSTAT) 30 ML LIQUID PEG SCH ×2 (08:22→21:59)
[2019-09-17] MEDS: TIZANIDINE HCL 4 MG TABLET PEG SCH ×2 (08:22→17:03)
[2019-09-17] MEDS: NUTRISOURCE FIBER 4 GM PACKET PEG SCH ×2 (08:22→21:59)
[2019-09-17] MEDS: HYDROGEN PEROXIDE 3% 118 ML BOTTLE TP SCH ×2 (08:45→21:25)
[2019-09-17 14:00] VITALS: BP 102/58
--- NOTE | 2019-09-17 16:15 | NUR ---
Video chat provided with pt's mother.
[2019-09-17] MEDS: ACETAMINOPHEN 650 MG/20 ML UDC- SA PATIENTS-PAIN ONLY PEG SCH (17:02)
[2019-09-17 20:29] VITALS: BP 113/65
[2019-09-18] MEDS: MIDODRINE 10 MG PEG SCH ×3 (05:28→21:49)
[2019-09-18] MEDS: OMEPRAZOLE 20 MG CAPSULE.DR GT SCH (05:28)
[2019-09-18] MEDS: TWOCAL HN 1,000 ML LIQUID PEG PRN (05:29)
[2019-09-18] MEDS: MULTIVIT, IRON, MIN NO. 8, FA TABLET GT SCH (05:30)
[2019-09-18 07:37] VITALS: BP 97/61
[2019-09-18] MEDS: HYDROGEN PEROXIDE 3% 118 ML BOTTLE TP SCH ×2 (09:00→19:08)
[2019-09-18] MEDS: FERROUS SULFATE 330 MG/7.5 ML UDC- FOR SA ONLY GT SCH ×2 (09:15→21:48)
[2019-09-18] MEDS: TIZANIDINE HCL 4 MG TABLET PEG SCH ×2 (09:15→17:03)
[2019-09-18] MEDS: PROTEIN SUPPLEMENT (PROSTAT) 30 ML LIQUID PEG SCH ×2 (09:15→21:48)
[2019-09-18] MEDS: NUTRISOURCE FIBER 4 GM PACKET PEG SCH ×2 (09:15→21:48)
[2019-09-18] MEDS: Z GUARD REMEDY PASTE 57 GM TUBE TOP SCH ×2 (09:16→21:48)
[2019-09-18 14:09] VITALS: BP 98/58
[2019-09-18] MEDS: ACETAMINOPHEN 650 MG/20 ML UDC- SA PATIENTS-PAIN ONLY PEG SCH (17:06)
[2019-09-18 19:46] VITALS: BP 96/56
[2019-09-19] MEDS: OMEPRAZOLE 20 MG CAPSULE.DR GT SCH (05:50)
[2019-09-19] MEDS: MIDODRINE 10 MG PEG SCH ×3 (05:50→21:47)
[2019-09-19 07:23] VITALS: BP 99/84
[2019-09-19] MEDS: FERROUS SULFATE 330 MG/7.5 ML UDC- FOR SA ONLY GT SCH ×2 (08:19→21:47)
[2019-09-19] MEDS: NUTRISOURCE FIBER 4 GM PACKET PEG SCH ×2 (08:21→21:47)
[2019-09-19] MEDS: PROTEIN SUPPLEMENT (PROSTAT) 30 ML LIQUID PEG SCH ×2 (08:21→21:47)
[2019-09-19] MEDS: TIZANIDINE HCL 4 MG TABLET PEG SCH ×2 (08:23→17:17)
[2019-09-19] MEDS: Z GUARD REMEDY PASTE 57 GM TUBE TOP SCH ×2 (08:24→21:47)
[2019-09-19] MEDS: HYDROGEN PEROXIDE 3% 118 ML BOTTLE TP SCH ×2 (10:00→21:45)
[2019-09-19] MEDS: ACETAMINOPHEN 650 MG/20 ML UDC- SA PATIENTS-PAIN ONLY PEG SCH (17:17)
[2019-09-19 22:00] VITALS: BP 95/48
[2019-09-20] MEDS: OMEPRAZOLE 20 MG CAPSULE.DR GT SCH (05:30)
[2019-09-20] MEDS: MIDODRINE 10 MG PEG SCH ×3 (05:30→21:02)
[2019-09-20] MEDS: MULTIVIT, IRON, MIN NO. 8, FA TABLET GT SCH (05:31)
[2019-09-20 06:00] VITALS: BP 103/56
[2019-09-20] MEDS: TWOCAL HN 1,000 ML LIQUID PEG PRN (06:42)
[2019-09-20] MEDS: PROTEIN SUPPLEMENT (PROSTAT) 30 ML LIQUID PEG SCH ×2 (08:00→20:52)
[2019-09-20] MEDS: NUTRISOURCE FIBER 4 GM PACKET PEG SCH ×2 (08:00→20:52)
[2019-09-20] MEDS: Z GUARD REMEDY PASTE 57 GM TUBE TOP SCH ×2 (08:00→20:52)
[2019-09-20] MEDS: TIZANIDINE HCL 4 MG TABLET PEG SCH ×2 (08:00→16:46)
[2019-09-20] MEDS: FERROUS SULFATE 330 MG/7.5 ML UDC- FOR SA ONLY GT SCH ×2 (08:00→20:52)
[2019-09-20] MEDS: HYDROGEN PEROXIDE 3% 118 ML BOTTLE TP SCH ×2 (09:50→21:50)
[2019-09-20 13:39] VITALS: BP 114/62
[2019-09-20] MEDS: ACETAMINOPHEN 650 MG/20 ML UDC- SA PATIENTS-PAIN ONLY PEG SCH (16:46)
[2019-09-20 23:25] VITALS: BP 98/57
[2019-09-21] MEDS: MIDODRINE 10 MG PEG SCH ×3 (05:13→21:51)
[2019-09-21] MEDS: OMEPRAZOLE 20 MG CAPSULE.DR GT SCH (05:13)
[2019-09-21 07:53] VITALS: BP 107/63
[2019-09-21] MEDS: PROTEIN SUPPLEMENT (PROSTAT) 30 ML LIQUID PEG SCH ×2 (08:42→21:50)
[2019-09-21] MEDS: NUTRISOURCE FIBER 4 GM PACKET PEG SCH ×2 (08:42→21:50)
[2019-09-21] MEDS: FERROUS SULFATE 330 MG/7.5 ML UDC- FOR SA ONLY GT SCH ×2 (08:42→21:50)
[2019-09-21] MEDS: Z GUARD REMEDY PASTE 57 GM TUBE TOP SCH ×2 (08:42→21:51)
[2019-09-21] MEDS: TIZANIDINE HCL 4 MG TABLET PEG SCH ×2 (08:42→16:38)
[2019-09-21] MEDS: HYDROGEN PEROXIDE 3% 118 ML BOTTLE TP SCH ×2 (09:00→21:18)
--- NOTE | 2019-09-21 10:50 | NUR ---
Seen by Marta LANE no new orders noted.
[2019-09-21 14:42] VITALS: BP 121/78
[2019-09-21] MEDS: ACETAMINOPHEN 650 MG/20 ML UDC- SA PATIENTS-PAIN ONLY PEG SCH (16:38)
[2019-09-21 20:31] VITALS: BP 105/62
[2019-09-22] MEDS: OMEPRAZOLE 20 MG CAPSULE.DR GT SCH (05:51)
[2019-09-22] MEDS: MIDODRINE 10 MG PEG SCH ×3 (05:52→21:14)
[2019-09-22] MEDS: MULTIVIT, IRON, MIN NO. 8, FA TABLET GT SCH (05:52)
[2019-09-22] MEDS: TWOCAL HN 1,000 ML LIQUID PEG PRN (06:52)
[2019-09-22 07:28] VITALS: BP 113/56
[2019-09-22] MEDS: FERROUS SULFATE 330 MG/7.5 ML UDC- FOR SA ONLY GT SCH ×2 (08:52→21:13)
[2019-09-22] MEDS: TIZANIDINE HCL 4 MG TABLET PEG SCH ×2 (08:53→17:00)
[2019-09-22] MEDS: NUTRISOURCE FIBER 4 GM PACKET PEG SCH ×2 (08:53→21:13)
[2019-09-22] MEDS: Z GUARD REMEDY PASTE 57 GM TUBE TOP SCH ×2 (08:53→21:14)
[2019-09-22] MEDS: PROTEIN SUPPLEMENT (PROSTAT) 30 ML LIQUID PEG SCH ×2 (08:53→21:13)
[2019-09-22] MEDS: HYDROGEN PEROXIDE 3% 118 ML BOTTLE TP SCH ×2 (09:00→21:47)
[2019-09-22 14:21] VITALS: BP 96/63
[2019-09-22] MEDS: ACETAMINOPHEN 650 MG/20 ML UDC- SA PATIENTS-PAIN ONLY PEG SCH (17:00)
[2019-09-22 20:15] VITALS: BP 104/63
[2019-09-23] MEDS: MIDODRINE 10 MG PEG SCH ×3 (05:33→21:55)
[2019-09-23] MEDS: OMEPRAZOLE 20 MG CAPSULE.DR GT SCH (05:33)
[2019-09-23 07:34] VITALS: BP 108/65
[2019-09-23] MEDS: NUTRISOURCE FIBER 4 GM PACKET PEG SCH ×2 (08:33→21:54)
[2019-09-23] MEDS: FERROUS SULFATE 330 MG/7.5 ML UDC- FOR SA ONLY GT SCH ×2 (08:33→21:54)
[2019-09-23] MEDS: PROTEIN SUPPLEMENT (PROSTAT) 30 ML LIQUID PEG SCH ×2 (08:33→21:54)
[2019-09-23] MEDS: Z GUARD REMEDY PASTE 57 GM TUBE TOP SCH ×2 (08:33→21:54)
[2019-09-23] MEDS: TIZANIDINE HCL 4 MG TABLET PEG SCH ×2 (08:33→16:30)
[2019-09-23] MEDS: HYDROGEN PEROXIDE 3% 118 ML BOTTLE TP SCH ×2 (09:38→21:00)
[2019-09-23 14:09] VITALS: BP 99/70
--- NOTE | 2019-09-23 16:00 | NUR ---
VIDEO CHAT DONE WITH PT'S MOTHER.
[2019-09-23] MEDS: ACETAMINOPHEN 650 MG/20 ML UDC- SA PATIENTS-PAIN ONLY PEG SCH (16:31)
[2019-09-23 20:22] VITALS: BP 98/58
[2019-09-24] MEDS: TWOCAL HN 1,000 ML LIQUID PEG PRN (02:46)
[2019-09-24] MEDS: OMEPRAZOLE 20 MG CAPSULE.DR GT SCH (05:52)
[2019-09-24] MEDS: MULTIVIT, IRON, MIN NO. 8, FA TABLET GT SCH (05:53)
[2019-09-24] MEDS: MIDODRINE 10 MG PEG SCH ×3 (05:53→21:50)
[2019-09-24 07:40] VITALS: BP 101/55
[2019-09-24] MEDS: PROTEIN SUPPLEMENT (PROSTAT) 30 ML LIQUID PEG SCH ×2 (08:34→21:49)
[2019-09-24] MEDS: Z GUARD REMEDY PASTE 57 GM TUBE TOP SCH ×2 (08:34→21:49)
[2019-09-24] MEDS: FERROUS SULFATE 330 MG/7.5 ML UDC- FOR SA ONLY GT SCH ×2 (08:34→21:49)
[2019-09-24] MEDS: TIZANIDINE HCL 4 MG TABLET PEG SCH ×2 (08:34→17:27)
[2019-09-24] MEDS: NUTRISOURCE FIBER 4 GM PACKET PEG SCH ×2 (08:34→21:49)
[2019-09-24] MEDS: HYDROGEN PEROXIDE 3% 118 ML BOTTLE TP SCH ×2 (09:00→21:51)
[2019-09-24 14:14] VITALS: BP 95/59
[2019-09-24] MEDS: ACETAMINOPHEN 650 MG/20 ML UDC- SA PATIENTS-PAIN ONLY PEG SCH (17:28)
[2019-09-24 20:00] VITALS: BP 106/62
[2019-09-25] MEDS: MIDODRINE 10 MG PEG SCH ×3 (06:13→21:52)
[2019-09-25] MEDS: OMEPRAZOLE 20 MG CAPSULE.DR GT SCH (06:13)
[2019-09-25 06:14] VITALS: BP 104/63
[2019-09-25 08:00] VITALS: BP 115/60
[2019-09-25] MEDS: PROTEIN SUPPLEMENT (PROSTAT) 30 ML LIQUID PEG SCH ×2 (08:40→21:51)
[2019-09-25] MEDS: NUTRISOURCE FIBER 4 GM PACKET PEG SCH ×2 (08:40→21:51)
[2019-09-25] MEDS: TIZANIDINE HCL 4 MG TABLET PEG SCH ×2 (08:40→17:27)
[2019-09-25] MEDS: FERROUS SULFATE 330 MG/7.5 ML UDC- FOR SA ONLY GT SCH ×2 (08:40→21:51)
[2019-09-25] MEDS: Z GUARD REMEDY PASTE 57 GM TUBE TOP SCH ×2 (08:40→21:52)
[2019-09-25] MEDS: HYDROGEN PEROXIDE 3% 118 ML BOTTLE TP SCH ×2 (09:00→21:25)
[2019-09-25 13:05] VITALS: BP 92/61
--- NOTE | 2019-09-25 16:00 | NUR ---
provided zoom time for patient with mother. patient stable no signs of pain or discomfort noted at this time, will continue to monitor.
[2019-09-25] MEDS: ACETAMINOPHEN 650 MG/20 ML UDC- SA PATIENTS-PAIN ONLY PEG SCH (17:27)
[2019-09-25 20:00] VITALS: BP 109/63
[2019-09-26] MEDS: TWOCAL HN 1,000 ML LIQUID PEG PRN (03:48)
[2019-09-26 05:22] VITALS: BP 111/63
[2019-09-26] MEDS: OMEPRAZOLE 20 MG CAPSULE.DR GT SCH (05:22)
[2019-09-26] MEDS: MIDODRINE 10 MG PEG SCH ×3 (05:22→21:42)
[2019-09-26] MEDS: MULTIVIT, IRON, MIN NO. 8, FA TABLET GT SCH (05:43)
[2019-09-26 07:32] VITALS: BP 110/64
[2019-09-26] MEDS: FERROUS SULFATE 330 MG/7.5 ML UDC- FOR SA ONLY GT SCH ×2 (08:21→21:41)
[2019-09-26] MEDS: NUTRISOURCE FIBER 4 GM PACKET PEG SCH ×2 (08:21→21:41)
[2019-09-26] MEDS: PROTEIN SUPPLEMENT (PROSTAT) 30 ML LIQUID PEG SCH ×2 (08:21→21:42)
[2019-09-26] MEDS: Z GUARD REMEDY PASTE 57 GM TUBE TOP SCH ×2 (08:21→21:42)
[2019-09-26] MEDS: TIZANIDINE HCL 4 MG TABLET PEG SCH ×2 (08:21→16:07)
--- NOTE | 2019-09-26 08:58 | NUR ---
SEEN AND EXAMINED BY ALICIA COTTO N.P. AND WITH NNO.
[2019-09-26] MEDS: HYDROGEN PEROXIDE 3% 118 ML BOTTLE TP SCH ×2 (09:00→21:37)
[2019-09-26 14:50] VITALS: BP 102/67
--- NOTE | 2019-09-26 16:00 | NUR ---
provided zoom time for patient with mother. patient stable no signs of pain or discomfort noted at this time will continue to monitor.
[2019-09-26] MEDS: ACETAMINOPHEN 650 MG/20 ML UDC- SA PATIENTS-PAIN ONLY PEG SCH (16:06)
[2019-09-26 20:00] VITALS: BP 109/71
[2019-09-27] MEDS: OMEPRAZOLE 20 MG CAPSULE.DR GT SCH (05:03)
[2019-09-27] MEDS: MIDODRINE 10 MG PEG SCH ×3 (05:03→21:45)
[2019-09-27 05:04] VITALS: BP 95/57
[2019-09-27 07:34] VITALS: BP 110/64
[2019-09-27] MEDS: PROTEIN SUPPLEMENT (PROSTAT) 30 ML LIQUID PEG SCH ×2 (08:22→21:44)
[2019-09-27] MEDS: FERROUS SULFATE 330 MG/7.5 ML UDC- FOR SA ONLY GT SCH ×2 (08:22→21:44)
[2019-09-27] MEDS: NUTRISOURCE FIBER 4 GM PACKET PEG SCH ×2 (08:22→21:44)
[2019-09-27] MEDS: TIZANIDINE HCL 4 MG TABLET PEG SCH ×2 (08:22→16:21)
[2019-09-27] MEDS: Z GUARD REMEDY PASTE 57 GM TUBE TOP SCH ×2 (08:23→21:45)
[2019-09-27] MEDS: HYDROGEN PEROXIDE 3% 118 ML BOTTLE TP SCH ×2 (09:14→21:12)
[2019-09-27 14:08] VITALS: BP 94/58
--- NOTE | 2019-09-27 16:00 | NUR ---
provided zoom for patient with mother. patient stable, no signs of pain or discomfort noted at this time. will continue to monitor.
[2019-09-27] MEDS: ACETAMINOPHEN 650 MG/20 ML UDC- SA PATIENTS-PAIN ONLY PEG SCH (16:21)
[2019-09-27 20:00] VITALS: BP 121/66
[2019-09-28] MEDS: TWOCAL HN 1,000 ML LIQUID PEG PRN (01:59)
[2019-09-28 05:15] VITALS: BP 107/62
[2019-09-28] MEDS: MIDODRINE 10 MG PEG SCH ×3 (05:15→22:05)
[2019-09-28] MEDS: OMEPRAZOLE 20 MG CAPSULE.DR GT SCH (05:15)
[2019-09-28] MEDS: MULTIVIT, IRON, MIN NO. 8, FA TABLET GT SCH (05:30)
[2019-09-28 07:46] VITALS: BP 119/74
[2019-09-28] MEDS: FERROUS SULFATE 330 MG/7.5 ML UDC- FOR SA ONLY GT SCH ×2 (08:36→20:45)
[2019-09-28] MEDS: NUTRISOURCE FIBER 4 GM PACKET PEG SCH ×2 (08:36→20:45)
[2019-09-28] MEDS: PROTEIN SUPPLEMENT (PROSTAT) 30 ML LIQUID PEG SCH ×2 (08:37→20:45)
[2019-09-28] MEDS: Z GUARD REMEDY PASTE 57 GM TUBE TOP SCH ×2 (08:38→20:45)
[2019-09-28] MEDS: TIZANIDINE HCL 4 MG TABLET PEG SCH ×2 (08:38→16:35)
[2019-09-28] MEDS: HYDROGEN PEROXIDE 3% 118 ML BOTTLE TP SCH ×2 (09:37→21:02)
--- NOTE | 2019-09-28 16:15 | NUR ---
provided zoom for patient with mother. patient stable, no signs of pain or discomfort noted at this time. will continue to monitor.
[2019-09-28] MEDS: ACETAMINOPHEN 650 MG/20 ML UDC- SA PATIENTS-PAIN ONLY PEG SCH (16:36)
[2019-09-28 20:03] VITALS: BP 95/55
[2019-09-29] MEDS: OMEPRAZOLE 20 MG CAPSULE.DR GT SCH (06:21)
[2019-09-29] MEDS: MIDODRINE 10 MG PEG SCH ×3 (06:21→22:05)
[2019-09-29 07:44] VITALS: BP 106/62
[2019-09-29] MEDS: HYDROGEN PEROXIDE 3% 118 ML BOTTLE TP SCH ×2 (08:09→21:16)
[2019-09-29] MEDS: TIZANIDINE HCL 4 MG TABLET PEG SCH ×2 (08:31→17:12)
[2019-09-29] MEDS: PROTEIN SUPPLEMENT (PROSTAT) 30 ML LIQUID PEG SCH ×2 (08:31→20:48)
[2019-09-29] MEDS: NUTRISOURCE FIBER 4 GM PACKET PEG SCH ×2 (08:31→20:48)
[2019-09-29] MEDS: FERROUS SULFATE 330 MG/7.5 ML UDC- FOR SA ONLY GT SCH ×2 (08:31→20:48)
[2019-09-29] MEDS: Z GUARD REMEDY PASTE 57 GM TUBE TOP SCH ×2 (08:31→20:48)
[2019-09-29] MEDS: ACETAMINOPHEN 650 MG/20 ML UDC- SA PATIENTS-PAIN ONLY PEG SCH (17:12)
--- NOTE | 2019-09-29 18:22 | NUR ---
ZOOM MEETING PROVIDED TO PATIENT'S MOTHER.
[2019-09-29 20:05] VITALS: BP 93/55
[2019-09-30] MEDS: OMEPRAZOLE 20 MG CAPSULE.DR GT SCH (06:10)
[2019-09-30] MEDS: MIDODRINE 10 MG PEG SCH ×3 (06:11→21:42)
[2019-09-30] MEDS: MULTIVIT, IRON, MIN NO. 8, FA TABLET GT SCH (06:11)
[2019-09-30 06:27] VITALS: BP 99/66
[2019-09-30] MEDS: TWOCAL HN 1,000 ML LIQUID PEG PRN (06:57)
[2019-09-30 07:28] VITALS: BP 109/59
[2019-09-30] MEDS: FERROUS SULFATE 330 MG/7.5 ML UDC- FOR SA ONLY GT SCH ×2 (08:26→21:41)
[2019-09-30] MEDS: Z GUARD REMEDY PASTE 57 GM TUBE TOP SCH ×2 (08:26→21:41)
[2019-09-30] MEDS: TIZANIDINE HCL 4 MG TABLET PEG SCH ×2 (08:26→17:18)
[2019-09-30] MEDS: PROTEIN SUPPLEMENT (PROSTAT) 30 ML LIQUID PEG SCH ×2 (08:26→21:41)
[2019-09-30] MEDS: NUTRISOURCE FIBER 4 GM PACKET PEG SCH ×2 (08:26→21:41)
[2019-09-30] MEDS: HYDROGEN PEROXIDE 3% 118 ML BOTTLE TP SCH ×2 (09:00→21:17)
[2019-09-30] MEDS: ACETAMINOPHEN 650 MG/20 ML UDC- SA PATIENTS-PAIN ONLY PEG SCH (17:18)
--- NOTE | 2019-09-30 18:23 | NUR ---
ZOOM MEETING PROVIDED TO PATIENT'S MOTHER.
[2019-09-30 19:54] VITALS: BP 95/59
[2019-10-01] MEDS: OMEPRAZOLE 20 MG CAPSULE.DR GT SCH (05:58)
[2019-10-01] MEDS: MIDODRINE 10 MG PEG SCH ×3 (05:58→21:46)
[2019-10-01 05:59] VITALS: BP 99/61
[2019-10-01 07:48] VITALS: BP 97/68
[2019-10-01] MEDS: HYDROGEN PEROXIDE 3% 118 ML BOTTLE TP SCH ×2 (08:18→21:00)
[2019-10-01] MEDS: FERROUS SULFATE 330 MG/7.5 ML UDC- FOR SA ONLY GT SCH ×2 (08:49→21:42)
[2019-10-01] MEDS: NUTRISOURCE FIBER 4 GM PACKET PEG SCH ×2 (08:50→21:43)
[2019-10-01] MEDS: PROTEIN SUPPLEMENT (PROSTAT) 30 ML LIQUID PEG SCH ×2 (08:50→21:43)
[2019-10-01] MEDS: TIZANIDINE HCL 4 MG TABLET PEG SCH ×2 (08:50→17:10)
[2019-10-01] MEDS: Z GUARD REMEDY PASTE 57 GM TUBE TOP SCH ×2 (08:52→21:46)
[2019-10-01] MEDS: ACETAMINOPHEN 650 MG/20 ML UDC- SA PATIENTS-PAIN ONLY PEG SCH (17:11)
[2019-10-01 20:08] VITALS: BP 102/56
[2019-10-02] MEDS: TWOCAL HN 1,000 ML LIQUID PEG PRN (03:04)
[2019-10-02 05:55] VITALS: BP 102/58
[2019-10-02] MEDS: OMEPRAZOLE 20 MG CAPSULE.DR GT SCH (05:57)
[2019-10-02] MEDS: MULTIVIT, IRON, MIN NO. 8, FA TABLET GT SCH (05:57)
[2019-10-02] MEDS: MIDODRINE 10 MG PEG SCH ×3 (05:57→21:51)
[2019-10-02 07:46] VITALS: BP 98/66
[2019-10-02] MEDS: NUTRISOURCE FIBER 4 GM PACKET PEG SCH ×2 (08:06→21:51)
[2019-10-02] MEDS: FERROUS SULFATE 330 MG/7.5 ML UDC- FOR SA ONLY GT SCH ×2 (08:06→21:51)
[2019-10-02] MEDS: PROTEIN SUPPLEMENT (PROSTAT) 30 ML LIQUID PEG SCH ×2 (08:06→21:51)
[2019-10-02] MEDS: TIZANIDINE HCL 4 MG TABLET PEG SCH ×2 (08:07→16:57)
[2019-10-02] MEDS: Z GUARD REMEDY PASTE 57 GM TUBE TOP SCH ×2 (08:08→21:51)
[2019-10-02] MEDS: HYDROGEN PEROXIDE 3% 118 ML BOTTLE TP SCH ×2 (09:35→21:47)
[2019-10-02] MEDS: ACETAMINOPHEN 650 MG/20 ML UDC- SA PATIENTS-PAIN ONLY PEG SCH (16:57)
[2019-10-02 20:34] VITALS: BP 100/65
--- NOTE | 2019-10-02 21:53 | NUR ---
NOTIFIED RESPONSIBLE REPUBLICAN, DEMETRICE RAMACHANDRAN, OF COVID-19 POSSIBLE EXPOSURE AND TESTING PLAN. RESPONSIBLE REPUBLICAN VERBALIZED UNDERSTANDING.
--- NOTE | 2019-10-03 02:00 | NUR ---
New order for COVID-19 test per [facility] COVID-19 requirement.
[2019-10-03] MEDS: MIDODRINE 10 MG PEG SCH ×3 (05:40→21:12)
[2019-10-03] MEDS: OMEPRAZOLE 20 MG CAPSULE.DR GT SCH (05:40)
[2019-10-03 05:41] VITALS: BP 103/60
[2019-10-03 07:53] VITALS: BP 98/58
[2019-10-03] MEDS: NUTRISOURCE FIBER 4 GM PACKET PEG SCH ×2 (08:46→20:07)
[2019-10-03] MEDS: PROTEIN SUPPLEMENT (PROSTAT) 30 ML LIQUID PEG SCH ×2 (08:46→20:07)
[2019-10-03] MEDS: FERROUS SULFATE 330 MG/7.5 ML UDC- FOR SA ONLY GT SCH ×2 (08:46→20:07)
[2019-10-03] MEDS: Z GUARD REMEDY PASTE 57 GM TUBE TOP SCH ×2 (08:47→20:07)
[2019-10-03] MEDS: TIZANIDINE HCL 4 MG TABLET PEG SCH ×2 (08:47→17:24)
[2019-10-03] MEDS: HYDROGEN PEROXIDE 3% 118 ML BOTTLE TP SCH ×2 (09:00→21:45)
[2019-10-03] MEDS: ACETAMINOPHEN 650 MG/20 ML UDC- SA PATIENTS-PAIN ONLY PEG SCH (17:24)
[2019-10-03 20:03] VITALS: BP 117/68
--- NOTE | 2019-10-03 21:13 | NUR ---
2200 MIDODRINE 10MG TABLET HELD ORDERED DUE TO SBP GREATER THAN 110. BP: 117/68, HR: 95. WILL CONTINUE TO MONITOR.
[2019-10-03] MEDS: TWOCAL HN 1,000 ML LIQUID PEG PRN (21:51)
[2019-10-04] MEDS: OMEPRAZOLE 20 MG CAPSULE.DR GT SCH (05:40)
[2019-10-04] MEDS: MIDODRINE 10 MG PEG SCH ×3 (05:40→21:05)
[2019-10-04] MEDS: MULTIVIT, IRON, MIN NO. 8, FA TABLET GT SCH (05:41)
[2019-10-04 08:00] VITALS: BP 113/64
[2019-10-04] MEDS: TIZANIDINE HCL 4 MG TABLET PEG SCH ×2 (09:35→17:57)
[2019-10-04] MEDS: NUTRISOURCE FIBER 4 GM PACKET PEG SCH ×2 (09:35→20:12)
[2019-10-04] MEDS: FERROUS SULFATE 330 MG/7.5 ML UDC- FOR SA ONLY GT SCH ×2 (09:35→20:12)
[2019-10-04] MEDS: PROTEIN SUPPLEMENT (PROSTAT) 30 ML LIQUID PEG SCH ×2 (09:35→20:12)
[2019-10-04] MEDS: Z GUARD REMEDY PASTE 57 GM TUBE TOP SCH ×2 (09:36→20:12)
[2019-10-04] MEDS: HYDROGEN PEROXIDE 3% 118 ML BOTTLE TP SCH ×2 (09:50→21:27)
[2019-10-04] MEDS: ACETAMINOPHEN 650 MG/20 ML UDC- SA PATIENTS-PAIN ONLY PEG SCH (17:57)
[2019-10-04 20:40] VITALS: BP 107/62
[2019-10-05] MEDS: MIDODRINE 10 MG PEG SCH ×3 (05:38→21:16)
[2019-10-05] MEDS: OMEPRAZOLE 20 MG CAPSULE.DR GT SCH (05:38)
[2019-10-05 07:46] VITALS: BP 108/61
[2019-10-05] MEDS: FERROUS SULFATE 330 MG/7.5 ML UDC- FOR SA ONLY GT SCH ×2 (08:05→20:11)
[2019-10-05] MEDS: Z GUARD REMEDY PASTE 57 GM TUBE TOP SCH ×2 (08:06→20:11)
[2019-10-05] MEDS: NUTRISOURCE FIBER 4 GM PACKET PEG SCH ×2 (08:06→20:11)
[2019-10-05] MEDS: TIZANIDINE HCL 4 MG TABLET PEG SCH ×2 (08:06→17:23)
[2019-10-05] MEDS: PROTEIN SUPPLEMENT (PROSTAT) 30 ML LIQUID PEG SCH ×2 (08:06→20:11)
[2019-10-05] MEDS: HYDROGEN PEROXIDE 3% 118 ML BOTTLE TP SCH ×2 (09:16→21:23)
[2019-10-05] MEDS: ACETAMINOPHEN 650 MG/20 ML UDC- SA PATIENTS-PAIN ONLY PEG SCH (17:23)
[2019-10-05 20:10] VITALS: BP 106/62
[2019-10-05] MEDS: TWOCAL HN 1,000 ML LIQUID PEG PRN (21:23)
[2019-10-06] MEDS: MULTIVIT, IRON, MIN NO. 8, FA TABLET GT SCH (05:32)
[2019-10-06] MEDS: MIDODRINE 10 MG PEG SCH ×3 (05:32→21:51)
[2019-10-06] MEDS: OMEPRAZOLE 20 MG CAPSULE.DR GT SCH (05:32)
[2019-10-06] MEDS: HYDROGEN PEROXIDE 3% 118 ML BOTTLE TP SCH ×2 (07:14→21:00)
[2019-10-06 07:42] VITALS: BP 96/63
[2019-10-06] MEDS: FERROUS SULFATE 330 MG/7.5 ML UDC- FOR SA ONLY GT SCH ×2 (08:32→21:50)
[2019-10-06] MEDS: NUTRISOURCE FIBER 4 GM PACKET PEG SCH ×2 (08:33→21:50)
[2019-10-06] MEDS: Z GUARD REMEDY PASTE 57 GM TUBE TOP SCH ×2 (08:33→21:50)
[2019-10-06] MEDS: TIZANIDINE HCL 4 MG TABLET PEG SCH ×2 (08:33→17:27)
[2019-10-06] MEDS: PROTEIN SUPPLEMENT (PROSTAT) 30 ML LIQUID PEG SCH ×2 (08:33→21:50)
--- NOTE | 2019-10-06 15:39 | NUR ---
ZOOM PROVIDED TO MOTHER
[2019-10-06] MEDS: ACETAMINOPHEN 650 MG/20 ML UDC- SA PATIENTS-PAIN ONLY PEG SCH (17:27)
[2019-10-06 20:23] VITALS: BP 105/55
[2019-10-07] MEDS: OMEPRAZOLE 20 MG CAPSULE.DR GT SCH (05:33)
[2019-10-07] MEDS: MIDODRINE 10 MG PEG SCH ×3 (05:36→21:18)
[2019-10-07 07:35] VITALS: BP 106/58
[2019-10-07] MEDS: FERROUS SULFATE 330 MG/7.5 ML UDC- FOR SA ONLY GT SCH ×2 (08:07→21:18)
[2019-10-07] MEDS: PROTEIN SUPPLEMENT (PROSTAT) 30 ML LIQUID PEG SCH ×2 (08:07→21:18)
[2019-10-07] MEDS: NUTRISOURCE FIBER 4 GM PACKET PEG SCH ×2 (08:07→21:18)
[2019-10-07] MEDS: TIZANIDINE HCL 4 MG TABLET PEG SCH ×2 (08:08→16:02)
[2019-10-07] MEDS: Z GUARD REMEDY PASTE 57 GM TUBE TOP SCH ×2 (08:08→21:18)
[2019-10-07] MEDS: HYDROGEN PEROXIDE 3% 118 ML BOTTLE TP SCH ×2 (09:50→21:04)
[2019-10-07 13:10] VITALS: BP 118/68
[2019-10-07] MEDS: ACETAMINOPHEN 650 MG/20 ML UDC- SA PATIENTS-PAIN ONLY PEG SCH (16:02)
--- NOTE | 2019-10-07 16:20 | NUR ---
Mother notified result was negative for covid19.
--- NOTE | 2019-10-07 17:09 | NUR ---
INTERDISCIPLINARY PLAN OF CARE CONFERENCE was held today. Patient's mother did not participate in the meeting. Dr. Caraballo and the Interdisciplinary team reviewed the current plan of care in detail. RN reported on patient's current medical condition, stating that there have been no changes in condition at this time. See RN IDT conference notes. See also all other disciplines IDT notes and physician's progress notes for additional details.
[2019-10-07 20:27] VITALS: BP 121/71
--- NOTE | 2019-10-07 21:18 | NUR ---
Pauly held b/p12
[2019-10-08] MEDS: TWOCAL HN 1,000 ML LIQUID PEG PRN (05:49)
[2019-10-08] MEDS: OMEPRAZOLE 20 MG CAPSULE.DR GT SCH (05:49)
[2019-10-08] MEDS: MULTIVIT, IRON, MIN NO. 8, FA TABLET GT SCH (05:49)
[2019-10-08] MEDS: MIDODRINE 10 MG PEG SCH ×3 (05:49→22:18)
[2019-10-08] MEDS: PROTEIN SUPPLEMENT (PROSTAT) 30 ML LIQUID PEG SCH ×2 (08:18→20:11)
[2019-10-08] MEDS: NUTRISOURCE FIBER 4 GM PACKET PEG SCH ×2 (08:18→20:11)
[2019-10-08] MEDS: TIZANIDINE HCL 4 MG TABLET PEG SCH ×2 (08:18→16:33)
[2019-10-08] MEDS: FERROUS SULFATE 330 MG/7.5 ML UDC- FOR SA ONLY GT SCH ×2 (08:18→20:11)
[2019-10-08] MEDS: Z GUARD REMEDY PASTE 57 GM TUBE TOP SCH ×2 (08:18→20:11)
[2019-10-08] MEDS: HYDROGEN PEROXIDE 3% 118 ML BOTTLE TP SCH ×2 (08:37→21:06)
[2019-10-08 10:00] VITALS: BP 107/63
--- NOTE | 2019-10-08 15:49 | NUR ---
NOTIFIED RESPONSIBLE CONSTITUTION PARTY, DEMETRICE RAMACHANDRAN, OF COVID-19 TESTING PLAN. RESPONSIBLE CONSTITUTION PARTY VERBALIZED UNDERSTANDING.
[2019-10-08] MEDS: ACETAMINOPHEN 650 MG/20 ML UDC- SA PATIENTS-PAIN ONLY PEG SCH (16:33)
--- NOTE | 2019-10-08 16:52 | NUR ---
New order for COVID-19 test per [facility] COVID-19 requirement.
[2019-10-08 20:00] VITALS: BP 102/66
--- NOTE | 2019-10-08 20:46 | NUR ---
paul elena n.p. was in, no new orders.
[2019-10-09] MEDS: OMEPRAZOLE 20 MG CAPSULE.DR GT SCH (05:34)
[2019-10-09] MEDS: MIDODRINE 10 MG PEG SCH ×3 (05:34→22:10)
[2019-10-09] MEDS: HYDROGEN PEROXIDE 3% 118 ML BOTTLE TP SCH ×2 (07:40→19:21)
[2019-10-09 07:46] VITALS: BP 110/62
[2019-10-09] MEDS: Z GUARD REMEDY PASTE 57 GM TUBE TOP SCH ×2 (08:33→20:07)
[2019-10-09] MEDS: PROTEIN SUPPLEMENT (PROSTAT) 30 ML LIQUID PEG SCH ×2 (08:33→20:07)
[2019-10-09] MEDS: TIZANIDINE HCL 4 MG TABLET PEG SCH ×2 (08:33→16:08)
[2019-10-09] MEDS: FERROUS SULFATE 330 MG/7.5 ML UDC- FOR SA ONLY GT SCH ×2 (08:33→20:07)
[2019-10-09] MEDS: NUTRISOURCE FIBER 4 GM PACKET PEG SCH ×2 (08:33→20:07)
--- NOTE | 2019-10-09 15:50 | NUR ---
Provided video chat to pt. and her mother with no problem, pt remains comfortable and all needs attended and anticipated.
[2019-10-09] MEDS: ACETAMINOPHEN 650 MG/20 ML UDC- SA PATIENTS-PAIN ONLY PEG SCH (16:08)
--- NOTE | 2019-10-09 19:13 | NUR ---
PT'S MOTHER AWARE AND IN AGREEMENT RE: COVID 19 TESTING TOMORROW.
[2019-10-09 20:19] VITALS: BP 101/67
[2019-10-10] MEDS: OMEPRAZOLE 20 MG CAPSULE.DR GT SCH (05:37)
[2019-10-10] MEDS: MIDODRINE 10 MG PEG SCH ×3 (05:37→22:29)
[2019-10-10] MEDS: MULTIVIT, IRON, MIN NO. 8, FA TABLET GT SCH (05:39)
[2019-10-10 08:28] VITALS: BP 120/63
[2019-10-10] MEDS: TIZANIDINE HCL 4 MG TABLET PEG SCH ×2 (08:45→17:06)
[2019-10-10] MEDS: BISACODYL 10 MG SUPP.RECT RC PRN (08:45)
[2019-10-10] MEDS: NUTRISOURCE FIBER 4 GM PACKET PEG SCH ×2 (08:45→21:00)
[2019-10-10] MEDS: PROTEIN SUPPLEMENT (PROSTAT) 30 ML LIQUID PEG SCH ×2 (08:45→21:00)
[2019-10-10] MEDS: FERROUS SULFATE 330 MG/7.5 ML UDC- FOR SA ONLY GT SCH ×2 (08:45→21:00)
[2019-10-10] MEDS: Z GUARD REMEDY PASTE 57 GM TUBE TOP SCH ×2 (08:45→21:00)
[2019-10-10] MEDS: HYDROGEN PEROXIDE 3% 118 ML BOTTLE TP SCH ×2 (09:39→21:59)
[2019-10-10] MEDS: TWOCAL HN 1,000 ML LIQUID PEG PRN (13:50)
[2019-10-10] MEDS: ACETAMINOPHEN 650 MG/20 ML UDC- SA PATIENTS-PAIN ONLY PEG SCH (17:06)
[2019-10-10 22:00] VITALS: BP 100/68
[2019-10-11] MEDS: MIDODRINE 10 MG PEG SCH ×3 (06:00→22:06)
[2019-10-11] MEDS: OMEPRAZOLE 20 MG CAPSULE.DR GT SCH (06:15)
[2019-10-11 07:39] VITALS: BP 105/66
[2019-10-11] MEDS: PROTEIN SUPPLEMENT (PROSTAT) 30 ML LIQUID PEG SCH ×2 (08:32→20:08)
[2019-10-11] MEDS: FERROUS SULFATE 330 MG/7.5 ML UDC- FOR SA ONLY GT SCH ×2 (08:32→20:06)
[2019-10-11] MEDS: NUTRISOURCE FIBER 4 GM PACKET PEG SCH ×2 (08:32→20:08)
[2019-10-11] MEDS: Z GUARD REMEDY PASTE 57 GM TUBE TOP SCH ×2 (08:33→20:08)
[2019-10-11] MEDS: TIZANIDINE HCL 4 MG TABLET PEG SCH ×2 (08:33→17:32)
[2019-10-11] MEDS: HYDROGEN PEROXIDE 3% 118 ML BOTTLE TP SCH ×2 (09:00→20:08)
[2019-10-11] MEDS: ACETAMINOPHEN 650 MG/20 ML UDC- SA PATIENTS-PAIN ONLY PEG SCH (17:32)
[2019-10-11 23:10] VITALS: BP 100/64
[2019-10-12] MEDS: OMEPRAZOLE 20 MG CAPSULE.DR GT SCH (05:51)
[2019-10-12] MEDS: MULTIVIT, IRON, MIN NO. 8, FA TABLET GT SCH (05:51)
[2019-10-12] MEDS: MIDODRINE 10 MG PEG SCH ×3 (05:55→21:51)
[2019-10-12 07:39] VITALS: BP 122/70
[2019-10-12] MEDS: NUTRISOURCE FIBER 4 GM PACKET PEG SCH ×2 (08:10→21:50)
[2019-10-12] MEDS: PROTEIN SUPPLEMENT (PROSTAT) 30 ML LIQUID PEG SCH ×2 (08:10→21:50)
[2019-10-12] MEDS: FERROUS SULFATE 330 MG/7.5 ML UDC- FOR SA ONLY GT SCH ×2 (08:10→21:50)
[2019-10-12] MEDS: TIZANIDINE HCL 4 MG TABLET PEG SCH ×2 (08:10→17:22)
[2019-10-12] MEDS: Z GUARD REMEDY PASTE 57 GM TUBE TOP SCH ×2 (08:11→21:50)
[2019-10-12] MEDS: HYDROGEN PEROXIDE 3% 118 ML BOTTLE TP SCH ×2 (09:00→21:02)
[2019-10-12] MEDS: TWOCAL HN 1,000 ML LIQUID PEG PRN (11:11)
--- NOTE | 2019-10-12 15:48 | NUR ---
zoom provided to mother.
--- NOTE | 2019-10-12 16:09 | NUR ---
PT'S MOTHER AWARE THAT PY. IS NEGATIVE FOR COVID 19.
[2019-10-12] MEDS: ACETAMINOPHEN 650 MG/20 ML UDC- SA PATIENTS-PAIN ONLY PEG SCH (17:22)
[2019-10-12 20:47] VITALS: BP 103/59
[2019-10-13] MEDS: OMEPRAZOLE 20 MG CAPSULE.DR GT SCH (05:33)
[2019-10-13] MEDS: MIDODRINE 10 MG PEG SCH ×3 (05:33→21:11)
[2019-10-13 07:45] VITALS: BP 107/59
[2019-10-13] MEDS: FERROUS SULFATE 330 MG/7.5 ML UDC- FOR SA ONLY GT SCH ×2 (08:05→21:10)
[2019-10-13] MEDS: NUTRISOURCE FIBER 4 GM PACKET PEG SCH ×2 (08:06→21:10)
[2019-10-13] MEDS: PROTEIN SUPPLEMENT (PROSTAT) 30 ML LIQUID PEG SCH ×2 (08:06→21:10)
[2019-10-13] MEDS: TIZANIDINE HCL 4 MG TABLET PEG SCH ×2 (08:06→16:38)
[2019-10-13] MEDS: Z GUARD REMEDY PASTE 57 GM TUBE TOP SCH ×2 (08:06→21:10)
[2019-10-13 08:13] VITALS: BP 107/59
--- NOTE | 2019-10-13 09:00 | NUR ---
SEEN BY DR. LYNNE AND WITH NNO.
[2019-10-13] MEDS: HYDROGEN PEROXIDE 3% 118 ML BOTTLE TP SCH ×2 (09:26→21:26)
[2019-10-13] MEDS: ACETAMINOPHEN 650 MG/20 ML UDC- SA PATIENTS-PAIN ONLY PEG SCH (16:38)
[2019-10-13 21:08] VITALS: BP 107/64
[2019-10-14] MEDS: TWOCAL HN 1,000 ML LIQUID PEG PRN (03:00)
[2019-10-14] MEDS: MULTIVIT, IRON, MIN NO. 8, FA TABLET GT SCH (06:27)
[2019-10-14] MEDS: OMEPRAZOLE 20 MG CAPSULE.DR GT SCH (06:27)
[2019-10-14] MEDS: MIDODRINE 10 MG PEG SCH ×3 (06:27→21:13)
[2019-10-14 07:43] VITALS: BP 106/64
[2019-10-14] MEDS: FERROUS SULFATE 330 MG/7.5 ML UDC- FOR SA ONLY GT SCH ×2 (08:38→21:12)
[2019-10-14] MEDS: NUTRISOURCE FIBER 4 GM PACKET PEG SCH ×2 (08:38→21:13)
[2019-10-14] MEDS: PROTEIN SUPPLEMENT (PROSTAT) 30 ML LIQUID PEG SCH ×2 (08:38→21:13)
[2019-10-14] MEDS: Z GUARD REMEDY PASTE 57 GM TUBE TOP SCH ×2 (08:38→21:13)
[2019-10-14] MEDS: TIZANIDINE HCL 4 MG TABLET PEG SCH ×2 (08:38→16:33)
[2019-10-14] MEDS: HYDROGEN PEROXIDE 3% 118 ML BOTTLE TP SCH ×2 (09:39→20:58)
[2019-10-14] MEDS: ACETAMINOPHEN 650 MG/20 ML UDC- SA PATIENTS-PAIN ONLY PEG SCH (16:33)
[2019-10-14 20:37] VITALS: BP 107/63
[2019-10-15] MEDS: OMEPRAZOLE 20 MG CAPSULE.DR GT SCH (05:05)
[2019-10-15] MEDS: MIDODRINE 10 MG PEG SCH ×3 (05:05→21:58)
[2019-10-15 07:45] VITALS: BP 123/57
[2019-10-15] MEDS: PROTEIN SUPPLEMENT (PROSTAT) 30 ML LIQUID PEG SCH ×2 (08:46→20:46)
[2019-10-15] MEDS: TIZANIDINE HCL 4 MG TABLET PEG SCH ×2 (08:46→16:07)
[2019-10-15] MEDS: FERROUS SULFATE 330 MG/7.5 ML UDC- FOR SA ONLY GT SCH ×2 (08:46→20:46)
[2019-10-15] MEDS: Z GUARD REMEDY PASTE 57 GM TUBE TOP SCH ×2 (08:46→20:47)
[2019-10-15] MEDS: NUTRISOURCE FIBER 4 GM PACKET PEG SCH ×2 (08:46→20:46)
[2019-10-15] MEDS: HYDROGEN PEROXIDE 3% 118 ML BOTTLE TP SCH ×2 (09:00→21:10)
[2019-10-15] MEDS: ACETAMINOPHEN 650 MG/20 ML UDC- SA PATIENTS-PAIN ONLY PEG SCH (16:07)
--- NOTE | 2019-10-15 16:40 | NUR ---
Provided video chat to pt. and her mother with no problem, pt. kept clean and comfortable, all needs attended and anticipated.
[2019-10-15 20:47] VITALS: BP 101/64
[2019-10-16] MEDS: OMEPRAZOLE 20 MG CAPSULE.DR GT SCH (05:37)
[2019-10-16] MEDS: MULTIVIT, IRON, MIN NO. 8, FA TABLET GT SCH (05:37)
[2019-10-16] MEDS: MIDODRINE 10 MG PEG SCH ×3 (05:37→22:25)
[2019-10-16 07:37] VITALS: BP 101/58
[2019-10-16] MEDS: FERROUS SULFATE 330 MG/7.5 ML UDC- FOR SA ONLY GT SCH ×2 (08:18→21:00)
[2019-10-16] MEDS: TIZANIDINE HCL 4 MG TABLET PEG SCH ×2 (08:19→16:59)
[2019-10-16] MEDS: PROTEIN SUPPLEMENT (PROSTAT) 30 ML LIQUID PEG SCH ×2 (08:19→21:00)
[2019-10-16] MEDS: NUTRISOURCE FIBER 4 GM PACKET PEG SCH ×2 (08:19→21:00)
[2019-10-16] MEDS: Z GUARD REMEDY PASTE 57 GM TUBE TOP SCH ×2 (08:20→21:00)
[2019-10-16] MEDS: HYDROGEN PEROXIDE 3% 118 ML BOTTLE TP SCH ×2 (09:50→21:29)
[2019-10-16 13:24] VITALS: BP 99/60
[2019-10-16] MEDS: ACETAMINOPHEN 650 MG/20 ML UDC- SA PATIENTS-PAIN ONLY PEG SCH (16:59)
[2019-10-16] MEDS: POLYVINYL ALCOHOL OPHT DROPS 15 ML BOTTLE EACHEYE PRN (17:00)
[2019-10-16] MEDS: TRIAMCINOLONE ACET 0.1% OINT 15 GM TUBE TP PRN (17:00)
[2019-10-16 20:00] VITALS: BP 103/70
[2019-10-16] MEDS: TWOCAL HN 1,000 ML LIQUID PEG PRN (20:00)
[2019-10-17] MEDS: OMEPRAZOLE 20 MG CAPSULE.DR GT SCH (05:24)
[2019-10-17] MEDS: MIDODRINE 10 MG PEG SCH ×3 (05:24→21:46)
[2019-10-17 05:25] VITALS: BP 104/61
[2019-10-17 07:30] VITALS: BP 111/69
[2019-10-17] MEDS: FERROUS SULFATE 330 MG/7.5 ML UDC- FOR SA ONLY GT SCH ×2 (08:13→21:46)
[2019-10-17] MEDS: Z GUARD REMEDY PASTE 57 GM TUBE TOP SCH ×2 (08:13→21:46)
[2019-10-17] MEDS: NUTRISOURCE FIBER 4 GM PACKET PEG SCH ×2 (08:13→21:46)
[2019-10-17] MEDS: TIZANIDINE HCL 4 MG TABLET PEG SCH ×2 (08:13→17:06)
[2019-10-17] MEDS: PROTEIN SUPPLEMENT (PROSTAT) 30 ML LIQUID PEG SCH ×2 (08:13→21:46)
[2019-10-17] MEDS: TRIAMCINOLONE ACET 0.1% OINT 15 GM TUBE TP PRN (08:14)
[2019-10-17] MEDS: HYDROGEN PEROXIDE 3% 118 ML BOTTLE TP SCH ×2 (09:50→21:40)
[2019-10-17 14:39] VITALS: BP 91/56
[2019-10-17] MEDS: ACETAMINOPHEN 650 MG/20 ML UDC- SA PATIENTS-PAIN ONLY PEG SCH (17:06)
[2019-10-17 21:47] VITALS: BP 98/56
[2019-10-17 22:47] VITALS: BP 98/56
[2019-10-18] MEDS: TWOCAL HN 1,000 ML LIQUID PEG PRN (02:37)
[2019-10-18 05:48] VITALS: BP 116/70
[2019-10-18] MEDS: OMEPRAZOLE 20 MG CAPSULE.DR GT SCH (05:48)
[2019-10-18] MEDS: MULTIVIT, IRON, MIN NO. 8, FA TABLET GT SCH (05:48)
[2019-10-18] MEDS: MIDODRINE 10 MG PEG SCH ×3 (05:48→21:23)
[2019-10-18 07:44] VITALS: BP 116/60
[2019-10-18] MEDS: PROTEIN SUPPLEMENT (PROSTAT) 30 ML LIQUID PEG SCH ×2 (08:46→21:23)
[2019-10-18] MEDS: Z GUARD REMEDY PASTE 57 GM TUBE TOP SCH ×2 (08:46→21:23)
[2019-10-18] MEDS: TIZANIDINE HCL 4 MG TABLET PEG SCH ×2 (08:46→16:02)
[2019-10-18] MEDS: FERROUS SULFATE 330 MG/7.5 ML UDC- FOR SA ONLY GT SCH ×2 (08:46→21:23)
[2019-10-18] MEDS: NUTRISOURCE FIBER 4 GM PACKET PEG SCH ×2 (08:46→21:23)
[2019-10-18] MEDS: HYDROGEN PEROXIDE 3% 118 ML BOTTLE TP SCH ×2 (09:42→21:40)
[2019-10-18 14:17] VITALS: BP 105/66
[2019-10-18] MEDS: ACETAMINOPHEN 650 MG/20 ML UDC- SA PATIENTS-PAIN ONLY PEG SCH (16:02)
[2019-10-18 21:00] VITALS: BP 104/59
[2019-10-18 23:02] VITALS: BP 104/59
[2019-10-19] MEDS: OMEPRAZOLE 20 MG CAPSULE.DR GT SCH (05:42)
[2019-10-19] MEDS: MIDODRINE 10 MG PEG SCH ×3 (05:42→22:46)
[2019-10-19 05:43] VITALS: BP 94/52
[2019-10-19 07:55] VITALS: BP 96/57
[2019-10-19] MEDS: NUTRISOURCE FIBER 4 GM PACKET PEG SCH ×2 (08:06→20:58)
[2019-10-19] MEDS: PROTEIN SUPPLEMENT (PROSTAT) 30 ML LIQUID PEG SCH ×2 (08:06→20:58)
[2019-10-19] MEDS: FERROUS SULFATE 330 MG/7.5 ML UDC- FOR SA ONLY GT SCH ×2 (08:06→20:58)
[2019-10-19] MEDS: Z GUARD REMEDY PASTE 57 GM TUBE TOP SCH ×2 (08:07→20:58)
[2019-10-19] MEDS: TIZANIDINE HCL 4 MG TABLET PEG SCH ×2 (08:07→17:45)
[2019-10-19] MEDS: HYDROGEN PEROXIDE 3% 118 ML BOTTLE TP SCH ×2 (09:00→21:50)
--- NOTE | 2019-10-19 16:39 | NUR ---
ZOOM PROVIDED TO MOTHER.
[2019-10-19] MEDS: ACETAMINOPHEN 650 MG/20 ML UDC- SA PATIENTS-PAIN ONLY PEG SCH (17:45)
[2019-10-19 22:37] VITALS: BP 108/55
[2019-10-20] MEDS: MIDODRINE 10 MG PEG SCH ×3 (05:37→22:00)
[2019-10-20] MEDS: OMEPRAZOLE 20 MG CAPSULE.DR GT SCH (05:37)
[2019-10-20] MEDS: MULTIVIT, IRON, MIN NO. 8, FA TABLET GT SCH (05:37)
[2019-10-20 07:40] VITALS: BP 121/74
[2019-10-20] MEDS: FERROUS SULFATE 330 MG/7.5 ML UDC- FOR SA ONLY GT SCH ×2 (08:21→20:41)
[2019-10-20] MEDS: NUTRISOURCE FIBER 4 GM PACKET PEG SCH ×2 (08:21→20:41)
[2019-10-20] MEDS: TIZANIDINE HCL 4 MG TABLET PEG SCH ×2 (08:22→17:17)
[2019-10-20] MEDS: Z GUARD REMEDY PASTE 57 GM TUBE TOP SCH ×2 (08:22→20:41)
[2019-10-20] MEDS: PROTEIN SUPPLEMENT (PROSTAT) 30 ML LIQUID PEG SCH ×2 (08:22→20:41)
[2019-10-20] MEDS: TWOCAL HN 1,000 ML LIQUID PEG PRN (08:45)
[2019-10-20] MEDS: HYDROGEN PEROXIDE 3% 118 ML BOTTLE TP SCH ×2 (09:17→21:21)
[2019-10-20] MEDS: ACETAMINOPHEN 650 MG/20 ML UDC- SA PATIENTS-PAIN ONLY PEG SCH (17:17)
[2019-10-20 20:18] VITALS: BP 115/67
[2019-10-21] MEDS: OMEPRAZOLE 20 MG CAPSULE.DR GT SCH (05:16)
[2019-10-21] MEDS: MIDODRINE 10 MG PEG SCH ×3 (05:16→21:56)
[2019-10-21 06:00] VITALS: BP 107/63
[2019-10-21 07:41] VITALS: BP 105/68
[2019-10-21] MEDS: NUTRISOURCE FIBER 4 GM PACKET PEG SCH ×2 (08:49→21:56)
[2019-10-21] MEDS: Z GUARD REMEDY PASTE 57 GM TUBE TOP SCH ×2 (08:49→21:56)
[2019-10-21] MEDS: FERROUS SULFATE 330 MG/7.5 ML UDC- FOR SA ONLY GT SCH ×2 (08:49→21:56)
[2019-10-21] MEDS: PROTEIN SUPPLEMENT (PROSTAT) 30 ML LIQUID PEG SCH ×2 (08:49→21:56)
[2019-10-21] MEDS: TIZANIDINE HCL 4 MG TABLET PEG SCH ×2 (08:49→16:27)
[2019-10-21] MEDS: HYDROGEN PEROXIDE 3% 118 ML BOTTLE TP SCH ×2 (09:00→20:58)
[2019-10-21] MEDS: ACETAMINOPHEN 650 MG/20 ML UDC- SA PATIENTS-PAIN ONLY PEG SCH (16:27)
[2019-10-21 20:23] VITALS: BP 117/59
[2019-10-22] MEDS: TWOCAL HN 1,000 ML LIQUID PEG PRN (04:00)
[2019-10-22] MEDS: OMEPRAZOLE 20 MG CAPSULE.DR GT SCH (05:17)
[2019-10-22 05:20] VITALS: BP 114/67
[2019-10-22] MEDS: MIDODRINE 10 MG PEG SCH ×3 (05:20→21:50)
[2019-10-22] MEDS: MULTIVIT, IRON, MIN NO. 8, FA TABLET GT SCH (05:30)
[2019-10-22 08:00] VITALS: BP 108/57
[2019-10-22] MEDS: HYDROGEN PEROXIDE 3% 118 ML BOTTLE TP SCH ×2 (09:00→21:45)
[2019-10-22] MEDS: NUTRISOURCE FIBER 4 GM PACKET PEG SCH ×2 (09:05→21:50)
[2019-10-22] MEDS: FERROUS SULFATE 330 MG/7.5 ML UDC- FOR SA ONLY GT SCH ×2 (09:05→21:50)
[2019-10-22] MEDS: PROTEIN SUPPLEMENT (PROSTAT) 30 ML LIQUID PEG SCH ×2 (09:05→21:50)
[2019-10-22] MEDS: DOCUSATE SODIUM 100 MG/10 ML LIQUID UDC GT SCH (09:05)
[2019-10-22] MEDS: Z GUARD REMEDY PASTE 57 GM TUBE TOP SCH ×2 (09:06→21:50)
[2019-10-22] MEDS: TIZANIDINE HCL 4 MG TABLET PEG SCH ×2 (09:06→17:02)
[2019-10-22 14:45] VITALS: BP 117/64
[2019-10-22] MEDS: ACETAMINOPHEN 650 MG/20 ML UDC- SA PATIENTS-PAIN ONLY PEG SCH (17:02)
[2019-10-22 20:18] VITALS: BP 94/57
[2019-10-23 05:07] VITALS: BP 97/60
[2019-10-23] MEDS: MIDODRINE 10 MG PEG SCH ×3 (05:25→21:59)
[2019-10-23] MEDS: OMEPRAZOLE 20 MG CAPSULE.DR GT SCH (05:25)
[2019-10-23 07:42] VITALS: BP 121/63
[2019-10-23] MEDS: NUTRISOURCE FIBER 4 GM PACKET PEG SCH ×2 (08:23→21:59)
[2019-10-23] MEDS: DOCUSATE SODIUM 100 MG/10 ML LIQUID UDC GT SCH (08:23)
[2019-10-23] MEDS: FERROUS SULFATE 330 MG/7.5 ML UDC- FOR SA ONLY GT SCH ×2 (08:23→21:59)
[2019-10-23] MEDS: PROTEIN SUPPLEMENT (PROSTAT) 30 ML LIQUID PEG SCH ×2 (08:24→21:59)
[2019-10-23] MEDS: Z GUARD REMEDY PASTE 57 GM TUBE TOP SCH ×2 (08:24→21:59)
[2019-10-23] MEDS: TIZANIDINE HCL 4 MG TABLET PEG SCH ×2 (08:24→16:12)
[2019-10-23] MEDS: HYDROGEN PEROXIDE 3% 118 ML BOTTLE TP SCH ×2 (09:50→21:53)
[2019-10-23 13:30] VITALS: BP 92/60
[2019-10-23] MEDS: ACETAMINOPHEN 650 MG/20 ML UDC- SA PATIENTS-PAIN ONLY PEG SCH (16:12)
[2019-10-23 20:00] VITALS: BP 109/66
[2019-10-24] MEDS: TWOCAL HN 1,000 ML LIQUID PEG PRN (06:03)
[2019-10-24] MEDS: OMEPRAZOLE 20 MG CAPSULE.DR GT SCH (06:03)
[2019-10-24] MEDS: MULTIVIT, IRON, MIN NO. 8, FA TABLET GT SCH (06:03)
[2019-10-24] MEDS: MIDODRINE 10 MG PEG SCH ×3 (06:03→21:19)
[2019-10-24 07:46] VITALS: BP 104/65
[2019-10-24] MEDS: DOCUSATE SODIUM 100 MG/10 ML LIQUID UDC GT SCH (08:45)
[2019-10-24] MEDS: FERROUS SULFATE 330 MG/7.5 ML UDC- FOR SA ONLY GT SCH ×2 (08:45→20:13)
[2019-10-24] MEDS: NUTRISOURCE FIBER 4 GM PACKET PEG SCH ×2 (08:46→20:13)
[2019-10-24] MEDS: PROTEIN SUPPLEMENT (PROSTAT) 30 ML LIQUID PEG SCH ×2 (08:47→20:13)
[2019-10-24] MEDS: Z GUARD REMEDY PASTE 57 GM TUBE TOP SCH ×2 (08:48→20:13)
[2019-10-24] MEDS: TIZANIDINE HCL 4 MG TABLET PEG SCH ×2 (08:48→17:12)
[2019-10-24] MEDS: HYDROGEN PEROXIDE 3% 118 ML BOTTLE TP SCH ×2 (09:24→21:00)
[2019-10-24] MEDS: ACETAMINOPHEN 650 MG/20 ML UDC- SA PATIENTS-PAIN ONLY PEG SCH (17:12)
--- NOTE | 2019-10-24 17:20 | NUR ---
SEEN BY DR. LYNNE AND WITH NNO.
--- NOTE | 2019-10-24 17:28 | NUR ---
zoom meeting provided to patient's mother.
[2019-10-24 20:00] VITALS: BP 100/56
[2019-10-25] MEDS: OMEPRAZOLE 20 MG CAPSULE.DR GT SCH (05:32)
[2019-10-25] MEDS: MIDODRINE 10 MG PEG SCH ×3 (05:32→21:24)
[2019-10-25 07:49] VITALS: BP 109/62
[2019-10-25] MEDS: HYDROGEN PEROXIDE 3% 118 ML BOTTLE TP SCH ×2 (09:00→21:23)
[2019-10-25] MEDS: NUTRISOURCE FIBER 4 GM PACKET PEG SCH ×2 (09:59→21:23)
[2019-10-25] MEDS: DOCUSATE SODIUM 100 MG/10 ML LIQUID UDC GT SCH (09:59)
[2019-10-25] MEDS: TIZANIDINE HCL 4 MG TABLET PEG SCH ×2 (09:59→17:34)
[2019-10-25] MEDS: FERROUS SULFATE 330 MG/7.5 ML UDC- FOR SA ONLY GT SCH ×2 (09:59→21:23)
[2019-10-25] MEDS: PROTEIN SUPPLEMENT (PROSTAT) 30 ML LIQUID PEG SCH ×2 (09:59→21:23)
[2019-10-25] MEDS: Z GUARD REMEDY PASTE 57 GM TUBE TOP SCH ×2 (09:59→21:23)
[2019-10-25] MEDS: ACETAMINOPHEN 650 MG/20 ML UDC- SA PATIENTS-PAIN ONLY PEG SCH (17:34)
[2019-10-25 20:19] VITALS: BP 131/51
[2019-10-26] MEDS: OMEPRAZOLE 20 MG CAPSULE.DR GT SCH (05:08)
[2019-10-26] MEDS: MULTIVIT, IRON, MIN NO. 8, FA TABLET GT SCH (05:08)
[2019-10-26] MEDS: MIDODRINE 10 MG PEG SCH ×3 (05:09→22:00)
[2019-10-26 05:10] VITALS: BP 95/58
[2019-10-26 07:37] VITALS: BP 102/52
[2019-10-26] MEDS: FERROUS SULFATE 330 MG/7.5 ML UDC- FOR SA ONLY GT SCH ×2 (08:38→20:57)
[2019-10-26] MEDS: DOCUSATE SODIUM 100 MG/10 ML LIQUID UDC GT SCH (08:38)
[2019-10-26] MEDS: NUTRISOURCE FIBER 4 GM PACKET PEG SCH ×2 (08:39→20:57)
[2019-10-26] MEDS: PROTEIN SUPPLEMENT (PROSTAT) 30 ML LIQUID PEG SCH ×2 (08:39→20:57)
[2019-10-26] MEDS: Z GUARD REMEDY PASTE 57 GM TUBE TOP SCH ×2 (08:40→20:57)
[2019-10-26] MEDS: TIZANIDINE HCL 4 MG TABLET PEG SCH ×2 (08:40→17:24)
[2019-10-26] MEDS: HYDROGEN PEROXIDE 3% 118 ML BOTTLE TP SCH ×2 (09:16→21:13)
--- NOTE | 2019-10-26 15:30 | NUR ---
Provided video chat to pt and her mother with no problem noted, Kept pt. clean and comfortable, all needs attended.
[2019-10-26] MEDS: ACETAMINOPHEN 650 MG/20 ML UDC- SA PATIENTS-PAIN ONLY PEG SCH (17:24)
[2019-10-26 20:14] VITALS: BP 126/64
[2019-10-27] MEDS: OMEPRAZOLE 20 MG CAPSULE.DR GT SCH (05:22)
[2019-10-27] MEDS: MIDODRINE 10 MG PEG SCH ×3 (05:23→22:27)
[2019-10-27 06:47] VITALS: BP 100/60
[2019-10-27 07:49] VITALS: BP 104/63
[2019-10-27] MEDS: Z GUARD REMEDY PASTE 57 GM TUBE TOP SCH ×2 (08:17→20:51)
[2019-10-27] MEDS: TIZANIDINE HCL 4 MG TABLET PEG SCH ×2 (08:17→16:13)
[2019-10-27] MEDS: NUTRISOURCE FIBER 4 GM PACKET PEG SCH ×2 (08:17→20:51)
[2019-10-27] MEDS: PROTEIN SUPPLEMENT (PROSTAT) 30 ML LIQUID PEG SCH ×2 (08:17→20:51)
[2019-10-27] MEDS: FERROUS SULFATE 330 MG/7.5 ML UDC- FOR SA ONLY GT SCH ×2 (08:17→20:51)
[2019-10-27] MEDS: DOCUSATE SODIUM 100 MG/10 ML LIQUID UDC GT SCH (08:17)
[2019-10-27] MEDS: HYDROGEN PEROXIDE 3% 118 ML BOTTLE TP SCH ×2 (09:00→20:50)
[2019-10-27] MEDS: ACETAMINOPHEN 650 MG/20 ML UDC- SA PATIENTS-PAIN ONLY PEG SCH (16:13)
[2019-10-27 20:35] VITALS: BP 103/64
[2019-10-28] MEDS: OMEPRAZOLE 20 MG CAPSULE.DR GT SCH (05:11)
[2019-10-28] MEDS: MIDODRINE 10 MG PEG SCH ×3 (05:11→21:54)
[2019-10-28] MEDS: MULTIVIT, IRON, MIN NO. 8, FA TABLET GT SCH (06:39)
[2019-10-28] MEDS: TWOCAL HN 1,000 ML LIQUID PEG PRN (06:54)
[2019-10-28 07:25] VITALS: BP 106/62
[2019-10-28] MEDS: Z GUARD REMEDY PASTE 57 GM TUBE TOP SCH ×2 (08:23→20:01)
[2019-10-28] MEDS: NUTRISOURCE FIBER 4 GM PACKET PEG SCH ×2 (08:23→20:00)
[2019-10-28] MEDS: FERROUS SULFATE 330 MG/7.5 ML UDC- FOR SA ONLY GT SCH ×2 (08:23→20:00)
[2019-10-28] MEDS: DOCUSATE SODIUM 100 MG/10 ML LIQUID UDC GT SCH (08:23)
[2019-10-28] MEDS: PROTEIN SUPPLEMENT (PROSTAT) 30 ML LIQUID PEG SCH ×2 (08:23→20:00)
[2019-10-28] MEDS: TIZANIDINE HCL 4 MG TABLET PEG SCH ×2 (08:23→16:39)
--- NOTE | 2019-10-28 08:30 | NUR ---
Seen and examined by Dr Wu with no new orders noted.
[2019-10-28] MEDS: HYDROGEN PEROXIDE 3% 118 ML BOTTLE TP SCH ×2 (09:36→21:04)
[2019-10-28] MEDS: ACETAMINOPHEN 650 MG/20 ML UDC- SA PATIENTS-PAIN ONLY PEG SCH (16:39)
[2019-10-28 20:00] VITALS: BP 102/61
[2019-10-29] MEDS: OMEPRAZOLE 20 MG CAPSULE.DR GT SCH (05:26)
[2019-10-29] MEDS: MIDODRINE 10 MG PEG SCH ×3 (05:26→22:15)
[2019-10-29] MEDS: TIZANIDINE HCL 4 MG TABLET PEG SCH ×2 (08:36→16:09)
[2019-10-29] MEDS: NUTRISOURCE FIBER 4 GM PACKET PEG SCH ×2 (08:36→20:06)
[2019-10-29] MEDS: PROTEIN SUPPLEMENT (PROSTAT) 30 ML LIQUID PEG SCH ×2 (08:36→20:06)
[2019-10-29] MEDS: FERROUS SULFATE 330 MG/7.5 ML UDC- FOR SA ONLY GT SCH ×2 (08:36→20:06)
[2019-10-29] MEDS: DOCUSATE SODIUM 100 MG/10 ML LIQUID UDC GT SCH (08:36)
[2019-10-29] MEDS: Z GUARD REMEDY PASTE 57 GM TUBE TOP SCH ×2 (08:36→20:06)
[2019-10-29] MEDS: HYDROGEN PEROXIDE 3% 118 ML BOTTLE TP SCH ×2 (09:52→21:45)
[2019-10-29 12:22] VITALS: BP 107/71
[2019-10-29] MEDS: ACETAMINOPHEN 650 MG/20 ML UDC- SA PATIENTS-PAIN ONLY PEG SCH (16:09)
[2019-10-29 20:09] VITALS: BP 101/59
[2019-10-30] MEDS: TWOCAL HN 1,000 ML LIQUID PEG PRN (05:00)
[2019-10-30] MEDS: MIDODRINE 10 MG PEG SCH ×3 (05:35→21:59)
[2019-10-30] MEDS: MULTIVIT, IRON, MIN NO. 8, FA TABLET GT SCH (05:35)
[2019-10-30] MEDS: OMEPRAZOLE 20 MG CAPSULE.DR GT SCH (05:35)
[2019-10-30] MEDS: HYDROGEN PEROXIDE 3% 118 ML BOTTLE TP SCH ×2 (07:16→20:52)
[2019-10-30 07:30] VITALS: BP 92/51
[2019-10-30] MEDS: NUTRISOURCE FIBER 4 GM PACKET PEG SCH ×2 (08:37→20:01)
[2019-10-30] MEDS: TIZANIDINE HCL 4 MG TABLET PEG SCH ×2 (08:37→17:10)
[2019-10-30] MEDS: FERROUS SULFATE 330 MG/7.5 ML UDC- FOR SA ONLY GT SCH ×2 (08:37→20:01)
[2019-10-30] MEDS: PROTEIN SUPPLEMENT (PROSTAT) 30 ML LIQUID PEG SCH ×2 (08:37→20:01)
[2019-10-30] MEDS: DOCUSATE SODIUM 100 MG/10 ML LIQUID UDC GT SCH (08:37)
[2019-10-30] MEDS: Z GUARD REMEDY PASTE 57 GM TUBE TOP SCH ×2 (08:37→20:01)
--- NOTE | 2019-10-30 15:00 | NUR ---
Provided video chat to pt and her mother with no problem noted, pt remians comfortable, all needs attended and anticipated.
[2019-10-30] MEDS: ACETAMINOPHEN 650 MG/20 ML UDC- SA PATIENTS-PAIN ONLY PEG SCH (17:10)
[2019-10-30 20:00] VITALS: BP 93/51
[2019-10-31] MEDS: MIDODRINE 10 MG PEG SCH ×3 (05:42→21:04)
[2019-10-31] MEDS: OMEPRAZOLE 20 MG CAPSULE.DR GT SCH (05:42)
[2019-10-31 07:29] VITALS: BP 113/69
[2019-10-31] MEDS: NUTRISOURCE FIBER 4 GM PACKET PEG SCH ×2 (08:36→20:03)
[2019-10-31] MEDS: FERROUS SULFATE 330 MG/7.5 ML UDC- FOR SA ONLY GT SCH ×2 (08:36→20:03)
[2019-10-31] MEDS: TIZANIDINE HCL 4 MG TABLET PEG SCH ×2 (08:36→17:17)
[2019-10-31] MEDS: DOCUSATE SODIUM 100 MG/10 ML LIQUID UDC GT SCH (08:36)
[2019-10-31] MEDS: PROTEIN SUPPLEMENT (PROSTAT) 30 ML LIQUID PEG SCH ×2 (08:36→20:03)
[2019-10-31] MEDS: Z GUARD REMEDY PASTE 57 GM TUBE TOP SCH ×2 (08:37→20:03)
[2019-10-31] MEDS: HYDROGEN PEROXIDE 3% 118 ML BOTTLE TP SCH ×2 (09:00→21:45)
[2019-10-31] MEDS: ACETAMINOPHEN 650 MG/20 ML UDC- SA PATIENTS-PAIN ONLY PEG SCH (17:17)
[2019-10-31 20:17] VITALS: BP 98/57
[2019-10-31] MEDS: TWOCAL HN 1,000 ML LIQUID PEG PRN (22:22)
[2019-11-01] MEDS: OMEPRAZOLE 20 MG CAPSULE.DR GT SCH (05:32)
[2019-11-01] MEDS: MULTIVIT, IRON, MIN NO. 8, FA TABLET GT SCH (05:32)
[2019-11-01] MEDS: MIDODRINE 10 MG PEG SCH ×3 (05:32→21:20)
[2019-11-01 07:57] VITALS: BP 120/64
[2019-11-01] MEDS: NUTRISOURCE FIBER 4 GM PACKET PEG SCH ×2 (08:46→21:20)
[2019-11-01] MEDS: Z GUARD REMEDY PASTE 57 GM TUBE TOP SCH ×2 (08:46→21:20)
[2019-11-01] MEDS: FERROUS SULFATE 330 MG/7.5 ML UDC- FOR SA ONLY GT SCH ×2 (08:46→21:20)
[2019-11-01] MEDS: DOCUSATE SODIUM 100 MG/10 ML LIQUID UDC GT SCH (08:46)
[2019-11-01] MEDS: PROTEIN SUPPLEMENT (PROSTAT) 30 ML LIQUID PEG SCH ×2 (08:46→21:20)
[2019-11-01] MEDS: TIZANIDINE HCL 4 MG TABLET PEG SCH ×2 (08:46→16:39)
[2019-11-01] MEDS: HYDROGEN PEROXIDE 3% 118 ML BOTTLE TP SCH ×2 (08:48→21:48)
[2019-11-01 14:42] VITALS: BP 98/56
--- NOTE | 2019-11-01 16:35 | NUR ---
Assisted video chat with pt's mother at this time. Mother was thankful and happy with staff for caring for pt.
[2019-11-01] MEDS: ACETAMINOPHEN 650 MG/20 ML UDC- SA PATIENTS-PAIN ONLY PEG SCH (16:39)
--- NOTE | 2019-11-01 17:44 | NUR ---
Mother informed result for covid19 test was negative.
[2019-11-01 20:00] VITALS: BP 91/58
[2019-11-02 06:15] VITALS: BP 95/56
[2019-11-02] MEDS: OMEPRAZOLE 20 MG CAPSULE.DR GT SCH (06:15)
[2019-11-02] MEDS: MIDODRINE 10 MG PEG SCH ×3 (06:15→21:48)
[2019-11-02 07:34] VITALS: BP 100/60
[2019-11-02] MEDS: DOCUSATE SODIUM 100 MG/10 ML LIQUID UDC GT SCH (08:55)
[2019-11-02] MEDS: Z GUARD REMEDY PASTE 57 GM TUBE TOP SCH ×2 (08:56→21:48)
[2019-11-02] MEDS: PROTEIN SUPPLEMENT (PROSTAT) 30 ML LIQUID PEG SCH ×2 (08:56→21:48)
[2019-11-02] MEDS: NUTRISOURCE FIBER 4 GM PACKET PEG SCH ×2 (08:56→21:48)
[2019-11-02] MEDS: TIZANIDINE HCL 4 MG TABLET PEG SCH ×2 (08:56→17:14)
[2019-11-02] MEDS: FERROUS SULFATE 330 MG/7.5 ML UDC- FOR SA ONLY GT SCH ×2 (08:56→21:48)
[2019-11-02] MEDS: HYDROGEN PEROXIDE 3% 118 ML BOTTLE TP SCH ×2 (09:30→20:40)
--- NOTE | 2019-11-02 15:31 | NUR ---
ZOOM PROVIDED TO MOTHER.
--- NOTE | 2019-11-02 16:32 | NUR ---
Covid19 test done.
[2019-11-02] MEDS: ACETAMINOPHEN 650 MG/20 ML UDC- SA PATIENTS-PAIN ONLY PEG SCH (17:14)
[2019-11-02] MEDS: TWOCAL HN 1,000 ML LIQUID PEG PRN (18:22)
[2019-11-02 20:06] VITALS: BP 95/53
[2019-11-03] MEDS: MIDODRINE 10 MG PEG SCH ×3 (05:07→21:41)
[2019-11-03] MEDS: OMEPRAZOLE 20 MG CAPSULE.DR GT SCH (05:07)
[2019-11-03] MEDS: MULTIVIT, IRON, MIN NO. 8, FA TABLET GT SCH (05:42)
[2019-11-03] MEDS: HYDROGEN PEROXIDE 3% 118 ML BOTTLE TP SCH ×2 (07:30→20:55)
[2019-11-03 07:37] VITALS: BP 112/64
[2019-11-03] MEDS: DOCUSATE SODIUM 100 MG/10 ML LIQUID UDC GT SCH (08:29)
[2019-11-03] MEDS: TIZANIDINE HCL 4 MG TABLET PEG SCH ×2 (08:29→17:11)
[2019-11-03] MEDS: NUTRISOURCE FIBER 4 GM PACKET PEG SCH ×2 (08:29→21:40)
[2019-11-03] MEDS: PROTEIN SUPPLEMENT (PROSTAT) 30 ML LIQUID PEG SCH ×2 (08:29→21:41)
[2019-11-03] MEDS: FERROUS SULFATE 330 MG/7.5 ML UDC- FOR SA ONLY GT SCH ×2 (08:29→21:40)
[2019-11-03] MEDS: Z GUARD REMEDY PASTE 57 GM TUBE TOP SCH ×2 (08:29→21:41)
--- NOTE | 2019-11-03 16:05 | NUR ---
JEY called patient's mother Morena [phone] and informed her of possible COVID-19 exposure and testing plan for the current week and next week, as mandated by [facility] regulations. Morena expressed understanding and appreciation for the call and the information provided.
--- NOTE | 2019-11-03 17:03 | NUR ---
JEY received a form from [facility], titled Request for Information form. JEY notified Logan Gonsales in the accounting department, and JEY forwarded the form to him via interoffice mail.
[2019-11-03] MEDS: ACETAMINOPHEN 650 MG/20 ML UDC- SA PATIENTS-PAIN ONLY PEG SCH (17:11)
[2019-11-03 20:16] VITALS: BP 103/58
[2019-11-04] MEDS: OMEPRAZOLE 20 MG CAPSULE.DR GT SCH (05:48)
[2019-11-04] MEDS: MIDODRINE 10 MG PEG SCH ×3 (05:48→21:51)
[2019-11-04 07:24] VITALS: BP 92/60
[2019-11-04] MEDS: FERROUS SULFATE 330 MG/7.5 ML UDC- FOR SA ONLY GT SCH ×2 (08:27→21:51)
[2019-11-04] MEDS: NUTRISOURCE FIBER 4 GM PACKET PEG SCH ×2 (08:27→21:51)
[2019-11-04] MEDS: PROTEIN SUPPLEMENT (PROSTAT) 30 ML LIQUID PEG SCH ×2 (08:28→21:51)
[2019-11-04] MEDS: Z GUARD REMEDY PASTE 57 GM TUBE TOP SCH ×2 (08:29→21:51)
[2019-11-04] MEDS: TIZANIDINE HCL 4 MG TABLET PEG SCH ×2 (08:29→17:27)
[2019-11-04] MEDS: DOCUSATE SODIUM 100 MG/10 ML LIQUID UDC GT SCH (08:33)
[2019-11-04] MEDS: HYDROGEN PEROXIDE 3% 118 ML BOTTLE TP SCH ×2 (09:38→21:40)
[2019-11-04 14:45] VITALS: BP 114/65
[2019-11-04] MEDS: TWOCAL HN 1,000 ML LIQUID PEG PRN (15:37)
--- NOTE | 2019-11-04 16:00 | NUR ---
Provided zoom chat to pt. and her mother with no problem, pt. kept clean and comfortable, all needs attended and anticipated.
[2019-11-04] MEDS: ACETAMINOPHEN 650 MG/20 ML UDC- SA PATIENTS-PAIN ONLY PEG SCH (17:27)
--- NOTE | 2019-11-04 17:58 | NUR ---
Pt's Mother Morena informed results for Covid 19 are negative.
[2019-11-04 20:00] VITALS: BP 95/47
[2019-11-05] MEDS: MULTIVIT, IRON, MIN NO. 8, FA TABLET GT SCH (05:34)
[2019-11-05] MEDS: OMEPRAZOLE 20 MG CAPSULE.DR GT SCH (05:34)
[2019-11-05] MEDS: MIDODRINE 10 MG PEG SCH ×3 (05:34→21:09)
[2019-11-05 08:00] VITALS: BP 98/60
[2019-11-05] MEDS: DOCUSATE SODIUM 100 MG/10 ML LIQUID UDC GT SCH (08:07)
[2019-11-05] MEDS: FERROUS SULFATE 330 MG/7.5 ML UDC- FOR SA ONLY GT SCH ×2 (08:08→20:38)
[2019-11-05] MEDS: NUTRISOURCE FIBER 4 GM PACKET PEG SCH ×2 (08:08→20:39)
[2019-11-05] MEDS: Z GUARD REMEDY PASTE 57 GM TUBE TOP SCH ×2 (08:08→20:39)
[2019-11-05] MEDS: TIZANIDINE HCL 4 MG TABLET PEG SCH ×2 (08:08→16:45)
[2019-11-05] MEDS: PROTEIN SUPPLEMENT (PROSTAT) 30 ML LIQUID PEG SCH ×2 (08:08→20:39)
[2019-11-05] MEDS: HYDROGEN PEROXIDE 3% 118 ML BOTTLE TP SCH ×2 (09:55→20:08)
[2019-11-05 14:24] VITALS: BP 98/57
--- NOTE | 2019-11-05 15:30 | NUR ---
JEY sent patient's mother Morena an email informing her that the next IDT meeting for the patient is scheduled for 11/05/2019 at 11am, and inviting her to join the meeting through speaker phone. JEY will wait to hear back from Morena about whether she is available to participate.
--- NOTE | 2019-11-05 16:00 | NUR ---
Assisted with video chat with mother at this time. Mother, was thankful and happy with staff regarding pt's quality of care for her daughter.
[2019-11-05] MEDS: ACETAMINOPHEN 650 MG/20 ML UDC- SA PATIENTS-PAIN ONLY PEG SCH (16:45)
[2019-11-05 20:54] VITALS: BP 107/63
[2019-11-06] MEDS: TWOCAL HN 1,000 ML LIQUID PEG PRN (03:39)
[2019-11-06] MEDS: MIDODRINE 10 MG PEG SCH ×3 (05:14→21:58)
[2019-11-06] MEDS: OMEPRAZOLE 20 MG CAPSULE.DR GT SCH (05:14)
[2019-11-06 07:54] VITALS: BP 116/64
[2019-11-06] MEDS: NUTRISOURCE FIBER 4 GM PACKET PEG SCH ×2 (08:26→21:57)
[2019-11-06] MEDS: Z GUARD REMEDY PASTE 57 GM TUBE TOP SCH ×2 (08:26→21:57)
[2019-11-06] MEDS: DOCUSATE SODIUM 100 MG/10 ML LIQUID UDC GT SCH (08:26)
[2019-11-06] MEDS: TIZANIDINE HCL 4 MG TABLET PEG SCH ×2 (08:26→17:01)
[2019-11-06] MEDS: PROTEIN SUPPLEMENT (PROSTAT) 30 ML LIQUID PEG SCH ×2 (08:26→21:57)
[2019-11-06] MEDS: FERROUS SULFATE 330 MG/7.5 ML UDC- FOR SA ONLY GT SCH ×2 (08:26→21:57)
[2019-11-06] MEDS: HYDROGEN PEROXIDE 3% 118 ML BOTTLE TP SCH ×2 (09:00→21:03)
[2019-11-06 14:19] VITALS: BP 95/56
[2019-11-06] MEDS: ACETAMINOPHEN 650 MG/20 ML UDC- SA PATIENTS-PAIN ONLY PEG SCH (17:01)
[2019-11-06 20:00] VITALS: BP 106/58
[2019-11-07 05:28] VITALS: BP 98/54
[2019-11-07] MEDS: MIDODRINE 10 MG PEG SCH ×3 (05:28→21:42)
[2019-11-07] MEDS: OMEPRAZOLE 20 MG CAPSULE.DR GT SCH (05:28)
[2019-11-07] MEDS: MULTIVIT, IRON, MIN NO. 8, FA TABLET GT SCH (05:34)
[2019-11-07 07:36] VITALS: BP 116/60
[2019-11-07] MEDS: HYDROGEN PEROXIDE 3% 118 ML BOTTLE TP SCH ×2 (08:40→21:45)
[2019-11-07] MEDS: NUTRISOURCE FIBER 4 GM PACKET PEG SCH ×2 (08:48→21:42)
[2019-11-07] MEDS: DOCUSATE SODIUM 100 MG/10 ML LIQUID UDC GT SCH (08:48)
[2019-11-07] MEDS: FERROUS SULFATE 330 MG/7.5 ML UDC- FOR SA ONLY GT SCH ×2 (08:48→21:42)
[2019-11-07] MEDS: PROTEIN SUPPLEMENT (PROSTAT) 30 ML LIQUID PEG SCH ×2 (08:49→21:42)
[2019-11-07] MEDS: Z GUARD REMEDY PASTE 57 GM TUBE TOP SCH ×2 (08:50→21:42)
[2019-11-07] MEDS: TIZANIDINE HCL 4 MG TABLET PEG SCH ×2 (08:50→16:21)
--- NOTE | 2019-11-07 10:00 | NUR ---
SEEN BY ANGEL Prieto AND WITH DIONISIOO.
--- NOTE | 2019-11-07 15:00 | NUR ---
SEEN BY DR. LYNNE AND WITH NNO.
--- NOTE | 2019-11-07 16:02 | NUR ---
provided zoom time for patient with mother, patient stable, no signs of pain or distress noted. will continue to monitor.
[2019-11-07] MEDS: ACETAMINOPHEN 650 MG/20 ML UDC- SA PATIENTS-PAIN ONLY PEG SCH (16:23)
[2019-11-07 22:00] VITALS: BP 98/59
[2019-11-08] MEDS: TWOCAL HN 1,000 ML LIQUID PEG PRN (02:34)
[2019-11-08 05:25] VITALS: BP 102/60
[2019-11-08] MEDS: OMEPRAZOLE 20 MG CAPSULE.DR GT SCH (05:26)
[2019-11-08] MEDS: MIDODRINE 10 MG PEG SCH ×4 (05:26→21:31)
[2019-11-08 07:36] VITALS: BP 110/61
[2019-11-08] MEDS: HYDROGEN PEROXIDE 3% 118 ML BOTTLE TP SCH ×2 (08:10→21:26)
[2019-11-08] MEDS: NUTRISOURCE FIBER 4 GM PACKET PEG SCH ×2 (09:15→21:31)
[2019-11-08] MEDS: FERROUS SULFATE 330 MG/7.5 ML UDC- FOR SA ONLY GT SCH ×2 (09:15→21:31)
[2019-11-08] MEDS: PROTEIN SUPPLEMENT (PROSTAT) 30 ML LIQUID PEG SCH ×2 (09:15→21:31)
[2019-11-08] MEDS: DOCUSATE SODIUM 100 MG/10 ML LIQUID UDC GT SCH (09:15)
[2019-11-08] MEDS: TIZANIDINE HCL 4 MG TABLET PEG SCH ×2 (09:25→16:29)
[2019-11-08] MEDS: Z GUARD REMEDY PASTE 57 GM TUBE TOP SCH ×2 (09:25→21:31)
--- NOTE | 2019-11-08 15:45 | NUR ---
provided zoom time for patient with mother, patient stable, no signs of pain or distress noted. will continue to monitor.
[2019-11-08] MEDS: ACETAMINOPHEN 650 MG/20 ML UDC- SA PATIENTS-PAIN ONLY PEG SCH (16:29)
[2019-11-08 20:30] VITALS: BP 97/51
[2019-11-09] MEDS: OMEPRAZOLE 20 MG CAPSULE.DR GT SCH (05:20)
[2019-11-09] MEDS: MIDODRINE 10 MG PEG SCH ×3 (05:20→22:28)
[2019-11-09 05:21] VITALS: BP 103/59
[2019-11-09] MEDS: MULTIVIT, IRON, MIN NO. 8, FA TABLET GT SCH (05:38)
[2019-11-09 08:00] VITALS: BP 103/59
[2019-11-09] MEDS: HYDROGEN PEROXIDE 3% 118 ML BOTTLE TP SCH ×2 (08:42→19:11)
[2019-11-09] MEDS: DOCUSATE SODIUM 100 MG/10 ML LIQUID UDC GT SCH (08:48)
[2019-11-09] MEDS: FERROUS SULFATE 330 MG/7.5 ML UDC- FOR SA ONLY GT SCH ×2 (08:48→20:45)
[2019-11-09] MEDS: PROTEIN SUPPLEMENT (PROSTAT) 30 ML LIQUID PEG SCH ×2 (08:49→20:45)
[2019-11-09] MEDS: Z GUARD REMEDY PASTE 57 GM TUBE TOP SCH ×2 (08:49→20:45)
[2019-11-09] MEDS: TIZANIDINE HCL 4 MG TABLET PEG SCH ×2 (08:49→17:53)
[2019-11-09] MEDS: NUTRISOURCE FIBER 4 GM PACKET PEG SCH ×2 (08:49→20:45)
[2019-11-09] MEDS: ACETAMINOPHEN 650 MG/20 ML UDC- SA PATIENTS-PAIN ONLY PEG SCH (17:53)
[2019-11-09 20:46] VITALS: BP 108/60
[2019-11-10] MEDS: MIDODRINE 10 MG PEG SCH ×3 (05:41→21:02)
[2019-11-10] MEDS: OMEPRAZOLE 20 MG CAPSULE.DR GT SCH (05:41)
[2019-11-10 07:22] VITALS: BP 109/62
[2019-11-10 07:38] VITALS: BP 96/58
[2019-11-10] MEDS: PROTEIN SUPPLEMENT (PROSTAT) 30 ML LIQUID PEG SCH ×2 (09:00→21:02)
[2019-11-10] MEDS: FERROUS SULFATE 330 MG/7.5 ML UDC- FOR SA ONLY GT SCH ×2 (09:00→21:02)
[2019-11-10] MEDS: TIZANIDINE HCL 4 MG TABLET PEG SCH ×2 (09:00→17:00)
[2019-11-10] MEDS: NUTRISOURCE FIBER 4 GM PACKET PEG SCH ×2 (09:00→21:02)
[2019-11-10] MEDS: Z GUARD REMEDY PASTE 57 GM TUBE TOP SCH ×2 (09:00→21:02)
[2019-11-10] MEDS: DOCUSATE SODIUM 100 MG/10 ML LIQUID UDC GT SCH (09:00)
[2019-11-10] MEDS: HYDROGEN PEROXIDE 3% 118 ML BOTTLE TP SCH ×2 (09:34→21:07)
--- NOTE | 2019-11-10 15:30 | NUR ---
NEW ORDER CARRIED OUT FOR COVID 19 TEST.
--- NOTE | 2019-11-10 16:20 | NUR ---
Family was informed about the covid-19 test to be done with the pt. Family verbalized understanding.
[2019-11-10] MEDS: ACETAMINOPHEN 650 MG/20 ML UDC- SA PATIENTS-PAIN ONLY PEG SCH (17:00)
[2019-11-10 20:13] VITALS: BP 99/60
[2019-11-11] MEDS: MIDODRINE 10 MG PEG SCH ×3 (06:24→21:04)
[2019-11-11] MEDS: OMEPRAZOLE 20 MG CAPSULE.DR GT SCH (06:24)
[2019-11-11] MEDS: MULTIVIT, IRON, MIN NO. 8, FA TABLET GT SCH (06:25)
[2019-11-11 06:44] VITALS: BP 106/60
[2019-11-11 07:24] VITALS: BP 114/60
[2019-11-11] MEDS: HYDROGEN PEROXIDE 3% 118 ML BOTTLE TP SCH ×2 (09:07→20:51)
[2019-11-11] MEDS: TIZANIDINE HCL 4 MG TABLET PEG SCH ×2 (09:18→17:00)
[2019-11-11] MEDS: FERROUS SULFATE 330 MG/7.5 ML UDC- FOR SA ONLY GT SCH ×2 (09:18→20:50)
[2019-11-11] MEDS: PROTEIN SUPPLEMENT (PROSTAT) 30 ML LIQUID PEG SCH ×2 (09:18→20:51)
[2019-11-11] MEDS: Z GUARD REMEDY PASTE 57 GM TUBE TOP SCH ×2 (09:18→20:51)
[2019-11-11] MEDS: DOCUSATE SODIUM 100 MG/10 ML LIQUID UDC GT SCH (09:18)
[2019-11-11] MEDS: NUTRISOURCE FIBER 4 GM PACKET PEG SCH ×2 (09:18→20:51)
--- NOTE | 2019-11-11 15:42 | NUR ---
INTERDISCIPLINARY PLAN OF CARE CONFERENCE was held today. Patient's mother was not available to participate in the meeting. Dr. Caraballo and the Interdisciplinary Team reviewed the current plan of care in detail. RN reported on patient's medical condition. See RN IDT conference notes. No major changes in medical condition were reported by nursing or by other disciplines. See all other disciplines IDT notes and physician's progress notes for additional details.
[2019-11-11] MEDS: ACETAMINOPHEN 650 MG/20 ML UDC- SA PATIENTS-PAIN ONLY PEG SCH (17:00)
[2019-11-11 20:16] VITALS: BP 115/61
[2019-11-12] MEDS: OMEPRAZOLE 20 MG CAPSULE.DR GT SCH (05:05)
[2019-11-12] MEDS: MIDODRINE 10 MG PEG SCH ×3 (05:09→22:00)
[2019-11-12] MEDS: TWOCAL HN 1,000 ML LIQUID PEG PRN (05:09)
[2019-11-12 08:00] VITALS: BP 95/57
[2019-11-12] MEDS: DOCUSATE SODIUM 100 MG/10 ML LIQUID UDC GT SCH (08:41)
[2019-11-12] MEDS: NUTRISOURCE FIBER 4 GM PACKET PEG SCH ×2 (08:42→20:47)
[2019-11-12] MEDS: FERROUS SULFATE 330 MG/7.5 ML UDC- FOR SA ONLY GT SCH ×2 (08:42→20:47)
[2019-11-12] MEDS: Z GUARD REMEDY PASTE 57 GM TUBE TOP SCH ×2 (08:44→20:47)
[2019-11-12] MEDS: TIZANIDINE HCL 4 MG TABLET PEG SCH ×2 (08:44→17:18)
[2019-11-12] MEDS: PROTEIN SUPPLEMENT (PROSTAT) 30 ML LIQUID PEG SCH ×2 (08:44→20:47)
[2019-11-12] MEDS: HYDROGEN PEROXIDE 3% 118 ML BOTTLE TP SCH ×2 (09:00→20:53)
[2019-11-12] MEDS: ACETAMINOPHEN 650 MG/20 ML UDC- SA PATIENTS-PAIN ONLY PEG SCH (17:18)
--- NOTE | 2019-11-12 18:34 | NUR ---
Morena Duran's mother notified COVID 19 results is negative.
[2019-11-12 20:13] VITALS: BP 102/64
[2019-11-13 05:30] VITALS: BP 103/65
[2019-11-13] MEDS: MIDODRINE 10 MG PEG SCH ×3 (05:30→21:15)
[2019-11-13] MEDS: MULTIVIT, IRON, MIN NO. 8, FA TABLET GT SCH (05:30)
[2019-11-13] MEDS: OMEPRAZOLE 20 MG CAPSULE.DR GT SCH (05:30)
[2019-11-13 07:46] VITALS: BP 101/59
[2019-11-13] MEDS: Z GUARD REMEDY PASTE 57 GM TUBE TOP SCH ×2 (08:54→20:33)
[2019-11-13] MEDS: TIZANIDINE HCL 4 MG TABLET PEG SCH ×2 (08:54→17:14)
[2019-11-13] MEDS: FERROUS SULFATE 330 MG/7.5 ML UDC- FOR SA ONLY GT SCH ×2 (08:54→20:33)
[2019-11-13] MEDS: DOCUSATE SODIUM 100 MG/10 ML LIQUID UDC GT SCH (08:54)
[2019-11-13] MEDS: NUTRISOURCE FIBER 4 GM PACKET PEG SCH ×2 (08:54→20:33)
[2019-11-13] MEDS: PROTEIN SUPPLEMENT (PROSTAT) 30 ML LIQUID PEG SCH ×2 (08:54→20:33)
[2019-11-13] MEDS: HYDROGEN PEROXIDE 3% 118 ML BOTTLE TP SCH ×2 (10:00→20:33)
--- NOTE | 2019-11-13 16:30 | NUR ---
Provided video chat to pt. and her mother with no problem, pt. remains comfortable, all needs attended and anticipated.
[2019-11-13] MEDS: ACETAMINOPHEN 650 MG/20 ML UDC- SA PATIENTS-PAIN ONLY PEG SCH (17:14)
[2019-11-13 22:27] VITALS: BP 102/61
[2019-11-14 05:01] VITALS: BP 122/61
[2019-11-14] MEDS: MIDODRINE 10 MG PEG SCH ×3 (05:01→21:10)
[2019-11-14] MEDS: OMEPRAZOLE 20 MG CAPSULE.DR GT SCH (05:01)
[2019-11-14 07:50] VITALS: BP 131/74
[2019-11-14] MEDS: FERROUS SULFATE 330 MG/7.5 ML UDC- FOR SA ONLY GT SCH ×2 (08:26→20:11)
[2019-11-14] MEDS: DOCUSATE SODIUM 100 MG/10 ML LIQUID UDC GT SCH (08:26)
[2019-11-14] MEDS: PROTEIN SUPPLEMENT (PROSTAT) 30 ML LIQUID PEG SCH ×2 (08:27→20:11)
[2019-11-14] MEDS: TIZANIDINE HCL 4 MG TABLET PEG SCH ×2 (08:27→17:00)
[2019-11-14] MEDS: NUTRISOURCE FIBER 4 GM PACKET PEG SCH ×2 (08:27→20:11)
[2019-11-14] MEDS: Z GUARD REMEDY PASTE 57 GM TUBE TOP SCH ×2 (08:28→20:11)
[2019-11-14] MEDS: HYDROGEN PEROXIDE 3% 118 ML BOTTLE TP SCH ×2 (09:00→21:31)
[2019-11-14] MEDS: ACETAMINOPHEN 650 MG/20 ML UDC- SA PATIENTS-PAIN ONLY PEG SCH (17:00)
[2019-11-14 20:52] VITALS: BP 106/50
[2019-11-15] MEDS: OMEPRAZOLE 20 MG CAPSULE.DR GT SCH (05:36)
[2019-11-15] MEDS: MULTIVIT, IRON, MIN NO. 8, FA TABLET GT SCH (05:36)
[2019-11-15] MEDS: MIDODRINE 10 MG PEG SCH ×3 (05:36→21:10)
[2019-11-15 08:00] VITALS: BP 100/70
[2019-11-15] MEDS: DOCUSATE SODIUM 100 MG/10 ML LIQUID UDC GT SCH (08:52)
[2019-11-15] MEDS: FERROUS SULFATE 330 MG/7.5 ML UDC- FOR SA ONLY GT SCH ×2 (08:53→20:08)
[2019-11-15] MEDS: NUTRISOURCE FIBER 4 GM PACKET PEG SCH ×2 (08:53→20:09)
[2019-11-15] MEDS: Z GUARD REMEDY PASTE 57 GM TUBE TOP SCH ×2 (08:54→20:09)
[2019-11-15] MEDS: TIZANIDINE HCL 4 MG TABLET PEG SCH ×2 (08:54→17:50)
[2019-11-15] MEDS: PROTEIN SUPPLEMENT (PROSTAT) 30 ML LIQUID PEG SCH ×2 (08:54→20:09)
[2019-11-15] MEDS: HYDROGEN PEROXIDE 3% 118 ML BOTTLE TP SCH ×2 (09:00→21:22)
[2019-11-15] MEDS: ACETAMINOPHEN 650 MG/20 ML UDC- SA PATIENTS-PAIN ONLY PEG SCH (17:50)
[2019-11-15 20:05] VITALS: BP 102/64
[2019-11-15] MEDS: TWOCAL HN 1,000 ML LIQUID PEG PRN (22:49)
[2019-11-16] MEDS: MIDODRINE 10 MG PEG SCH ×3 (05:28→21:13)
[2019-11-16] MEDS: OMEPRAZOLE 20 MG CAPSULE.DR GT SCH (05:28)
[2019-11-16 08:08] VITALS: BP 96/60
[2019-11-16] MEDS: PROTEIN SUPPLEMENT (PROSTAT) 30 ML LIQUID PEG SCH ×2 (08:40→20:04)
[2019-11-16] MEDS: NUTRISOURCE FIBER 4 GM PACKET PEG SCH ×2 (08:40→20:04)
[2019-11-16] MEDS: TIZANIDINE HCL 4 MG TABLET PEG SCH ×2 (08:40→17:20)
[2019-11-16] MEDS: DOCUSATE SODIUM 100 MG/10 ML LIQUID UDC GT SCH (08:40)
[2019-11-16] MEDS: Z GUARD REMEDY PASTE 57 GM TUBE TOP SCH ×2 (08:40→20:04)
[2019-11-16] MEDS: FERROUS SULFATE 330 MG/7.5 ML UDC- FOR SA ONLY GT SCH ×2 (08:40→20:04)
[2019-11-16] MEDS: HYDROGEN PEROXIDE 3% 118 ML BOTTLE TP SCH ×2 (09:00→21:40)
[2019-11-16] MEDS: ACETAMINOPHEN 650 MG/20 ML UDC- SA PATIENTS-PAIN ONLY PEG SCH (17:20)
[2019-11-16 20:09] VITALS: BP 111/72
--- NOTE | 2019-11-16 21:13 | NUR ---
2200 MIDODRINE 10MG TABLET HELD ORDERED DUE TO SBP GREATER THAN 110. BP: 111/72, HR: 81. WILL CONTINUE TO MONITOR.
[2019-11-17] MEDS: OMEPRAZOLE 20 MG CAPSULE.DR GT SCH (05:30)
[2019-11-17] MEDS: MIDODRINE 10 MG PEG SCH ×3 (05:30→21:40)
[2019-11-17] MEDS: MULTIVIT, IRON, MIN NO. 8, FA TABLET GT SCH (05:31)
[2019-11-17 07:39] VITALS: BP 97/49
[2019-11-17] MEDS: HYDROGEN PEROXIDE 3% 118 ML BOTTLE TP SCH ×2 (07:45→21:57)
[2019-11-17] MEDS: DOCUSATE SODIUM 100 MG/10 ML LIQUID UDC GT SCH (08:36)
[2019-11-17] MEDS: PROTEIN SUPPLEMENT (PROSTAT) 30 ML LIQUID PEG SCH ×2 (08:36→21:39)
[2019-11-17] MEDS: FERROUS SULFATE 330 MG/7.5 ML UDC- FOR SA ONLY GT SCH ×2 (08:36→21:39)
[2019-11-17] MEDS: TIZANIDINE HCL 4 MG TABLET PEG SCH ×2 (08:36→16:36)
[2019-11-17] MEDS: Z GUARD REMEDY PASTE 57 GM TUBE TOP SCH ×2 (08:36→21:39)
[2019-11-17] MEDS: NUTRISOURCE FIBER 4 GM PACKET PEG SCH ×2 (08:36→21:39)
[2019-11-17] MEDS: ACETAMINOPHEN 650 MG/20 ML UDC- SA PATIENTS-PAIN ONLY PEG SCH (16:36)
[2019-11-17 20:05] VITALS: BP 92/54
[2019-11-18 05:50] VITALS: BP 100/55
[2019-11-18] MEDS: MIDODRINE 10 MG PEG SCH ×3 (05:50→22:19)
[2019-11-18] MEDS: OMEPRAZOLE 20 MG CAPSULE.DR GT SCH (05:50)
[2019-11-18] MEDS: TWOCAL HN 1,000 ML LIQUID PEG PRN (05:51)
[2019-11-18 07:42] VITALS: BP 109/66
[2019-11-18] MEDS: Z GUARD REMEDY PASTE 57 GM TUBE TOP SCH ×2 (09:08→20:14)
[2019-11-18] MEDS: DOCUSATE SODIUM 100 MG/10 ML LIQUID UDC GT SCH (09:08)
[2019-11-18] MEDS: PROTEIN SUPPLEMENT (PROSTAT) 30 ML LIQUID PEG SCH ×2 (09:08→20:14)
[2019-11-18] MEDS: TIZANIDINE HCL 4 MG TABLET PEG SCH ×2 (09:08→17:21)
[2019-11-18] MEDS: NUTRISOURCE FIBER 4 GM PACKET PEG SCH ×2 (09:08→20:14)
[2019-11-18] MEDS: FERROUS SULFATE 330 MG/7.5 ML UDC- FOR SA ONLY GT SCH ×2 (09:08→20:14)
[2019-11-18] MEDS: HYDROGEN PEROXIDE 3% 118 ML BOTTLE TP SCH ×2 (09:35→21:32)
--- NOTE | 2019-11-18 15:30 | NUR ---
Provided video chat to pt. and her mother with no problem, pt remains comfortable all needs attended and anticipated.
[2019-11-18] MEDS: ACETAMINOPHEN 650 MG/20 ML UDC- SA PATIENTS-PAIN ONLY PEG SCH (17:21)
[2019-11-18 20:02] VITALS: BP 100/60
[2019-11-19 06:00] VITALS: BP 104/60
[2019-11-19] MEDS: MIDODRINE 10 MG PEG SCH ×3 (06:43→22:56)
[2019-11-19] MEDS: OMEPRAZOLE 20 MG CAPSULE.DR GT SCH (06:43)
[2019-11-19] MEDS: MULTIVIT, IRON, MIN NO. 8, FA TABLET GT SCH (06:44)
[2019-11-19 08:07] VITALS: BP 106/58
[2019-11-19] MEDS: Z GUARD REMEDY PASTE 57 GM TUBE TOP SCH ×2 (08:44→20:23)
[2019-11-19] MEDS: DOCUSATE SODIUM 100 MG/10 ML LIQUID UDC GT SCH (08:44)
[2019-11-19] MEDS: NUTRISOURCE FIBER 4 GM PACKET PEG SCH ×2 (08:44→20:23)
[2019-11-19] MEDS: PROTEIN SUPPLEMENT (PROSTAT) 30 ML LIQUID PEG SCH ×2 (08:44→20:23)
[2019-11-19] MEDS: FERROUS SULFATE 330 MG/7.5 ML UDC- FOR SA ONLY GT SCH ×2 (08:44→20:23)
[2019-11-19] MEDS: TIZANIDINE HCL 4 MG TABLET PEG SCH ×2 (08:45→16:03)
[2019-11-19] MEDS: HYDROGEN PEROXIDE 3% 118 ML BOTTLE TP SCH ×2 (09:00→21:00)
[2019-11-19] MEDS: ACETAMINOPHEN 650 MG/20 ML UDC- SA PATIENTS-PAIN ONLY PEG SCH (16:04)
[2019-11-19 20:10] VITALS: BP 98/67
[2019-11-20 06:00] VITALS: BP 103/62
[2019-11-20] MEDS: MIDODRINE 10 MG PEG SCH ×3 (06:33→22:04)
[2019-11-20] MEDS: TWOCAL HN 1,000 ML LIQUID PEG PRN (06:33)
[2019-11-20] MEDS: OMEPRAZOLE 20 MG CAPSULE.DR GT SCH (06:33)
[2019-11-20 07:56] VITALS: BP 91/56
[2019-11-20] MEDS: DOCUSATE SODIUM 100 MG/10 ML LIQUID UDC GT SCH (08:57)
[2019-11-20] MEDS: NUTRISOURCE FIBER 4 GM PACKET PEG SCH ×2 (09:00→21:00)
[2019-11-20] MEDS: FERROUS SULFATE 330 MG/7.5 ML UDC- FOR SA ONLY GT SCH ×2 (09:00→21:00)
[2019-11-20] MEDS: PROTEIN SUPPLEMENT (PROSTAT) 30 ML LIQUID PEG SCH ×2 (09:00→21:00)
[2019-11-20] MEDS: HYDROGEN PEROXIDE 3% 118 ML BOTTLE TP SCH ×2 (09:00→21:09)
--- NOTE | 2019-11-20 09:00 | NUR ---
SEEN BY DR. LYNNE AND WITH NNO.
[2019-11-20] MEDS: Z GUARD REMEDY PASTE 57 GM TUBE TOP SCH ×2 (09:01→21:00)
[2019-11-20] MEDS: TIZANIDINE HCL 4 MG TABLET PEG SCH ×2 (09:01→16:20)
--- NOTE | 2019-11-20 16:10 | NUR ---
Provided video chat for patient and her mother.
[2019-11-20] MEDS: ACETAMINOPHEN 650 MG/20 ML UDC- SA PATIENTS-PAIN ONLY PEG SCH (16:20)
[2019-11-20 20:00] VITALS: BP 108/63
[2019-11-21 05:03] VITALS: BP 102/57
[2019-11-21] MEDS: MIDODRINE 10 MG PEG SCH ×3 (05:03→21:45)
[2019-11-21] MEDS: OMEPRAZOLE 20 MG CAPSULE.DR GT SCH (05:03)
[2019-11-21] MEDS: MULTIVIT, IRON, MIN NO. 8, FA TABLET GT SCH (05:37)
[2019-11-21 07:55] VITALS: BP 99/62
[2019-11-21] MEDS: NUTRISOURCE FIBER 4 GM PACKET PEG SCH ×2 (08:23→21:45)
[2019-11-21] MEDS: FERROUS SULFATE 330 MG/7.5 ML UDC- FOR SA ONLY GT SCH ×2 (08:23→21:45)
[2019-11-21] MEDS: TIZANIDINE HCL 4 MG TABLET PEG SCH ×2 (08:23→16:34)
[2019-11-21] MEDS: PROTEIN SUPPLEMENT (PROSTAT) 30 ML LIQUID PEG SCH ×2 (08:23→21:45)
[2019-11-21] MEDS: DOCUSATE SODIUM 100 MG/10 ML LIQUID UDC GT SCH (08:23)
[2019-11-21] MEDS: Z GUARD REMEDY PASTE 57 GM TUBE TOP SCH ×2 (08:24→21:45)
[2019-11-21] MEDS: HYDROGEN PEROXIDE 3% 118 ML BOTTLE TP SCH ×2 (09:00→21:45)
[2019-11-21] MEDS: ACETAMINOPHEN 650 MG/20 ML UDC- SA PATIENTS-PAIN ONLY PEG SCH (16:34)
[2019-11-21 23:11] VITALS: BP 96/48
[2019-11-22] MEDS: TWOCAL HN 1,000 ML LIQUID PEG PRN (03:40)
[2019-11-22] MEDS: OMEPRAZOLE 20 MG CAPSULE.DR GT SCH (05:29)
[2019-11-22] MEDS: MIDODRINE 10 MG PEG SCH ×3 (05:29→21:06)
[2019-11-22 05:30] VITALS: BP 100/58
[2019-11-22 07:45] VITALS: BP 120/63
[2019-11-22] MEDS: PROTEIN SUPPLEMENT (PROSTAT) 30 ML LIQUID PEG SCH ×2 (08:19→21:06)
[2019-11-22] MEDS: DOCUSATE SODIUM 100 MG/10 ML LIQUID UDC GT SCH (08:19)
[2019-11-22] MEDS: FERROUS SULFATE 330 MG/7.5 ML UDC- FOR SA ONLY GT SCH ×2 (08:19→21:06)
[2019-11-22] MEDS: NUTRISOURCE FIBER 4 GM PACKET PEG SCH ×2 (08:19→21:06)
[2019-11-22] MEDS: TIZANIDINE HCL 4 MG TABLET PEG SCH ×2 (08:20→16:01)
[2019-11-22] MEDS: Z GUARD REMEDY PASTE 57 GM TUBE TOP SCH ×2 (08:20→21:06)
[2019-11-22] MEDS: HYDROGEN PEROXIDE 3% 118 ML BOTTLE TP SCH ×2 (09:09→21:21)
[2019-11-22] MEDS: ACETAMINOPHEN 650 MG/20 ML UDC- SA PATIENTS-PAIN ONLY PEG SCH (16:01)
[2019-11-22 23:02] VITALS: BP 96/54
[2019-11-23] MEDS: MULTIVIT, IRON, MIN NO. 8, FA TABLET GT SCH (05:38)
[2019-11-23] MEDS: OMEPRAZOLE 20 MG CAPSULE.DR GT SCH (05:38)
[2019-11-23] MEDS: MIDODRINE 10 MG PEG SCH ×3 (05:38→22:30)
[2019-11-23 07:36] VITALS: BP 105/58
[2019-11-23] MEDS: DOCUSATE SODIUM 100 MG/10 ML LIQUID UDC GT SCH (08:28)
[2019-11-23] MEDS: PROTEIN SUPPLEMENT (PROSTAT) 30 ML LIQUID PEG SCH ×2 (08:29→20:47)
[2019-11-23] MEDS: NUTRISOURCE FIBER 4 GM PACKET PEG SCH ×2 (08:29→20:47)
[2019-11-23] MEDS: Z GUARD REMEDY PASTE 57 GM TUBE TOP SCH ×2 (08:29→20:48)
[2019-11-23] MEDS: FERROUS SULFATE 330 MG/7.5 ML UDC- FOR SA ONLY GT SCH ×2 (08:29→20:47)
[2019-11-23] MEDS: TIZANIDINE HCL 4 MG TABLET PEG SCH ×2 (08:29→17:24)
[2019-11-23] MEDS: HYDROGEN PEROXIDE 3% 118 ML BOTTLE TP SCH ×2 (08:52→21:33)
[2019-11-23] MEDS: ACETAMINOPHEN 650 MG/20 ML UDC- SA PATIENTS-PAIN ONLY PEG SCH (17:24)
[2019-11-23 23:14] VITALS: BP 93/50
[2019-11-24] MEDS: OMEPRAZOLE 20 MG CAPSULE.DR GT SCH (05:31)
[2019-11-24] MEDS: MIDODRINE 10 MG PEG SCH ×3 (05:31→21:32)
[2019-11-24] MEDS: TWOCAL HN 1,000 ML LIQUID PEG PRN (07:07)
[2019-11-24 07:37] VITALS: BP 120/79
[2019-11-24] MEDS: HYDROGEN PEROXIDE 3% 118 ML BOTTLE TP SCH ×2 (08:26→21:31)
[2019-11-24] MEDS: FERROUS SULFATE 330 MG/7.5 ML UDC- FOR SA ONLY GT SCH ×2 (08:40→20:51)
[2019-11-24] MEDS: DOCUSATE SODIUM 100 MG/10 ML LIQUID UDC GT SCH (08:40)
[2019-11-24] MEDS: NUTRISOURCE FIBER 4 GM PACKET PEG SCH ×2 (08:41→20:51)
[2019-11-24] MEDS: TIZANIDINE HCL 4 MG TABLET PEG SCH ×2 (08:41→16:16)
[2019-11-24] MEDS: PROTEIN SUPPLEMENT (PROSTAT) 30 ML LIQUID PEG SCH ×2 (08:41→20:51)
[2019-11-24] MEDS: Z GUARD REMEDY PASTE 57 GM TUBE TOP SCH ×2 (08:41→20:51)
--- NOTE | 2019-11-24 16:00 | NUR ---
ZOOM PROVIDED TO MOTHER
[2019-11-24] MEDS: ACETAMINOPHEN 650 MG/20 ML UDC- SA PATIENTS-PAIN ONLY PEG SCH (16:16)
[2019-11-24 20:19] VITALS: BP 114/65
[2019-11-24 20:24] VITALS: BP 101/52
[2019-11-25] MEDS: MULTIVIT, IRON, MIN NO. 8, FA TABLET GT SCH (04:48)
[2019-11-25] MEDS: OMEPRAZOLE 20 MG CAPSULE.DR GT SCH (04:48)
[2019-11-25] MEDS: MIDODRINE 10 MG PEG SCH ×3 (04:48→21:25)
[2019-11-25 06:19] VITALS: BP 101/61
[2019-11-25] MEDS: HYDROGEN PEROXIDE 3% 118 ML BOTTLE TP SCH ×2 (07:16→21:45)
[2019-11-25 07:24] VITALS: BP 114/71
[2019-11-25] MEDS: DOCUSATE SODIUM 100 MG/10 ML LIQUID UDC GT SCH (08:46)
[2019-11-25] MEDS: FERROUS SULFATE 330 MG/7.5 ML UDC- FOR SA ONLY GT SCH ×2 (08:47→21:25)
[2019-11-25] MEDS: PROTEIN SUPPLEMENT (PROSTAT) 30 ML LIQUID PEG SCH ×2 (08:47→21:25)
[2019-11-25] MEDS: NUTRISOURCE FIBER 4 GM PACKET PEG SCH ×2 (08:47→21:25)
[2019-11-25] MEDS: TIZANIDINE HCL 4 MG TABLET PEG SCH ×2 (08:48→17:00)
[2019-11-25] MEDS: Z GUARD REMEDY PASTE 57 GM TUBE TOP SCH ×2 (08:49→21:25)
[2019-11-25] MEDS: TRIAMCINOLONE ACET 0.1% OINT 15 GM TUBE TP PRN (08:49)
[2019-11-25 13:54] VITALS: BP 92/62
[2019-11-25] MEDS: ACETAMINOPHEN 650 MG/20 ML UDC- SA PATIENTS-PAIN ONLY PEG SCH (17:00)
[2019-11-25 20:00] VITALS: BP 79/51
--- NOTE | 2019-11-25 21:45 | NUR ---
Received patient in stable respiratory condition on cool aerosol 28% FiO2. No SOB noted. Trach care done. Airway is patent and secured. Ambubag and spare trach at bedside. Will continue to monitor.
[2019-11-26] MEDS: OMEPRAZOLE 20 MG CAPSULE.DR GT SCH (06:50)
[2019-11-26] MEDS: MIDODRINE 10 MG PEG SCH ×3 (06:50→22:26)
[2019-11-26 07:48] VITALS: BP 124/63
[2019-11-26] MEDS: DOCUSATE SODIUM 100 MG/10 ML LIQUID UDC GT SCH (08:20)
[2019-11-26] MEDS: FERROUS SULFATE 330 MG/7.5 ML UDC- FOR SA ONLY GT SCH ×2 (08:21→20:35)
[2019-11-26] MEDS: TIZANIDINE HCL 4 MG TABLET PEG SCH ×2 (08:21→16:06)
[2019-11-26] MEDS: NUTRISOURCE FIBER 4 GM PACKET PEG SCH ×2 (08:21→20:35)
[2019-11-26] MEDS: TRIAMCINOLONE ACET 0.1% OINT 15 GM TUBE TP PRN (08:21)
[2019-11-26] MEDS: PROTEIN SUPPLEMENT (PROSTAT) 30 ML LIQUID PEG SCH ×2 (08:21→20:35)
[2019-11-26] MEDS: Z GUARD REMEDY PASTE 57 GM TUBE TOP SCH ×2 (08:21→20:36)
[2019-11-26] MEDS: POLYVINYL ALCOHOL OPHT DROPS 15 ML BOTTLE EACHEYE PRN (08:22)
[2019-11-26] MEDS: HYDROGEN PEROXIDE 3% 118 ML BOTTLE TP SCH ×2 (09:00→19:18)
[2019-11-26 13:44] VITALS: BP 92/55
[2019-11-26] MEDS: TWOCAL HN 1,000 ML LIQUID PEG PRN (15:49)
[2019-11-26] MEDS: ACETAMINOPHEN 650 MG/20 ML UDC- SA PATIENTS-PAIN ONLY PEG SCH (16:07)
[2019-11-26 20:13] VITALS: BP 101/56
[2019-11-26 20:35] VITALS: BP 101/56
[2019-11-27] MEDS: OMEPRAZOLE 20 MG CAPSULE.DR GT SCH (06:03)
[2019-11-27] MEDS: MIDODRINE 10 MG PEG SCH ×3 (06:04→22:05)
[2019-11-27] MEDS: MULTIVIT, IRON, MIN NO. 8, FA TABLET GT SCH (06:04)
[2019-11-27 07:38] VITALS: BP 120/63
[2019-11-27] MEDS: DOCUSATE SODIUM 100 MG/10 ML LIQUID UDC GT SCH (09:10)
[2019-11-27] MEDS: PROTEIN SUPPLEMENT (PROSTAT) 30 ML LIQUID PEG SCH ×2 (09:10→21:00)
[2019-11-27] MEDS: Z GUARD REMEDY PASTE 57 GM TUBE TOP SCH ×2 (09:10→21:00)
[2019-11-27] MEDS: FERROUS SULFATE 330 MG/7.5 ML UDC- FOR SA ONLY GT SCH ×2 (09:10→21:00)
[2019-11-27] MEDS: NUTRISOURCE FIBER 4 GM PACKET PEG SCH ×2 (09:10→21:00)
[2019-11-27] MEDS: TIZANIDINE HCL 4 MG TABLET PEG SCH ×2 (09:10→17:15)
[2019-11-27] MEDS: HYDROGEN PEROXIDE 3% 118 ML BOTTLE TP SCH ×2 (09:46→21:08)
[2019-11-27 13:24] VITALS: BP 122/68
[2019-11-27] MEDS: ACETAMINOPHEN 650 MG/20 ML UDC- SA PATIENTS-PAIN ONLY PEG SCH (17:15)
[2019-11-27] MEDS: TRIAMCINOLONE ACET 0.1% OINT 15 GM TUBE TP PRN (18:05)
[2019-11-27 20:08] VITALS: BP 112/63
[2019-11-28] MEDS: OMEPRAZOLE 20 MG CAPSULE.DR GT SCH (05:41)
[2019-11-28] MEDS: MIDODRINE 10 MG PEG SCH ×3 (05:41→21:27)
[2019-11-28 07:37] VITALS: BP 117/62
[2019-11-28] MEDS: DOCUSATE SODIUM 100 MG/10 ML LIQUID UDC GT SCH (08:36)
[2019-11-28] MEDS: FERROUS SULFATE 330 MG/7.5 ML UDC- FOR SA ONLY GT SCH ×2 (08:36→21:27)
[2019-11-28] MEDS: NUTRISOURCE FIBER 4 GM PACKET PEG SCH ×2 (08:37→21:27)
[2019-11-28] MEDS: PROTEIN SUPPLEMENT (PROSTAT) 30 ML LIQUID PEG SCH ×2 (08:37→21:27)
[2019-11-28] MEDS: TIZANIDINE HCL 4 MG TABLET PEG SCH ×2 (08:37→17:50)
[2019-11-28] MEDS: Z GUARD REMEDY PASTE 57 GM TUBE TOP SCH ×2 (08:39→21:27)
[2019-11-28] MEDS: HYDROGEN PEROXIDE 3% 118 ML BOTTLE TP SCH ×2 (09:02→21:23)
[2019-11-28] MEDS: TWOCAL HN 1,000 ML LIQUID PEG PRN (12:00)
[2019-11-28] MEDS: ACETAMINOPHEN 650 MG/20 ML UDC- SA PATIENTS-PAIN ONLY PEG SCH (17:50)
[2019-11-28 20:11] VITALS: BP 90/56
[2019-11-29] MEDS: OMEPRAZOLE 20 MG CAPSULE.DR GT SCH (05:03)
[2019-11-29] MEDS: MIDODRINE 10 MG PEG SCH ×3 (05:03→22:00)
[2019-11-29] MEDS: MULTIVIT, IRON, MIN NO. 8, FA TABLET GT SCH (05:40)
[2019-11-29 08:06] VITALS: BP 116/64
[2019-11-29] MEDS: FERROUS SULFATE 330 MG/7.5 ML UDC- FOR SA ONLY GT SCH ×2 (09:03→20:31)
[2019-11-29] MEDS: DOCUSATE SODIUM 100 MG/10 ML LIQUID UDC GT SCH (09:03)
[2019-11-29] MEDS: NUTRISOURCE FIBER 4 GM PACKET PEG SCH ×2 (09:05→20:31)
[2019-11-29] MEDS: Z GUARD REMEDY PASTE 57 GM TUBE TOP SCH ×2 (09:06→20:32)
[2019-11-29] MEDS: PROTEIN SUPPLEMENT (PROSTAT) 30 ML LIQUID PEG SCH ×2 (09:06→20:31)
[2019-11-29] MEDS: TIZANIDINE HCL 4 MG TABLET PEG SCH ×2 (09:06→17:23)
[2019-11-29] MEDS: HYDROGEN PEROXIDE 3% 118 ML BOTTLE TP SCH ×2 (09:30→20:32)
[2019-11-29] MEDS: ACETAMINOPHEN 650 MG/20 ML UDC- SA PATIENTS-PAIN ONLY PEG SCH (17:23)
[2019-11-29 20:10] VITALS: BP 127/69
[2019-11-30] MEDS: OMEPRAZOLE 20 MG CAPSULE.DR GT SCH (05:03)
[2019-11-30] MEDS: MIDODRINE 10 MG PEG SCH ×3 (05:03→21:16)
[2019-11-30] MEDS: HYDROGEN PEROXIDE 3% 118 ML BOTTLE TP SCH ×2 (07:39→20:06)
[2019-11-30 07:41] VITALS: BP 114/63
[2019-11-30] MEDS: NUTRISOURCE FIBER 4 GM PACKET PEG SCH ×2 (08:35→20:06)
[2019-11-30] MEDS: FERROUS SULFATE 330 MG/7.5 ML UDC- FOR SA ONLY GT SCH ×2 (08:35→20:06)
[2019-11-30] MEDS: DOCUSATE SODIUM 100 MG/10 ML LIQUID UDC GT SCH (08:35)
[2019-11-30] MEDS: PROTEIN SUPPLEMENT (PROSTAT) 30 ML LIQUID PEG SCH ×2 (08:36→20:06)
[2019-11-30] MEDS: TIZANIDINE HCL 4 MG TABLET PEG SCH ×2 (08:36→17:19)
[2019-11-30] MEDS: Z GUARD REMEDY PASTE 57 GM TUBE TOP SCH ×2 (08:36→20:06)
[2019-11-30] MEDS: TWOCAL HN 1,000 ML LIQUID PEG PRN (13:12)
[2019-11-30] MEDS: ACETAMINOPHEN 650 MG/20 ML UDC- SA PATIENTS-PAIN ONLY PEG SCH (17:19)
[2019-11-30 20:10] VITALS: BP 101/64
[2019-12-01] MEDS: OMEPRAZOLE 20 MG CAPSULE.DR GT SCH (05:08)
[2019-12-01 05:23] VITALS: BP 112/68
[2019-12-01] MEDS: MIDODRINE 10 MG PEG SCH ×3 (05:23→21:22)
[2019-12-01] MEDS: MULTIVIT, IRON, MIN NO. 8, FA TABLET GT SCH (05:34)
[2019-12-01 07:52] VITALS: BP 112/50
[2019-12-01] MEDS: HYDROGEN PEROXIDE 3% 118 ML BOTTLE TP SCH ×2 (07:55→21:23)
[2019-12-01] MEDS: Z GUARD REMEDY PASTE 57 GM TUBE TOP SCH ×2 (08:36→21:21)
[2019-12-01] MEDS: NUTRISOURCE FIBER 4 GM PACKET PEG SCH ×2 (08:36→21:21)
[2019-12-01] MEDS: TIZANIDINE HCL 4 MG TABLET PEG SCH ×2 (08:36→16:39)
[2019-12-01] MEDS: PROTEIN SUPPLEMENT (PROSTAT) 30 ML LIQUID PEG SCH ×2 (08:36→21:21)
[2019-12-01] MEDS: FERROUS SULFATE 330 MG/7.5 ML UDC- FOR SA ONLY GT SCH ×2 (08:36→21:21)
[2019-12-01] MEDS: DOCUSATE SODIUM 100 MG/10 ML LIQUID UDC GT SCH (08:36)
[2019-12-01] MEDS: ACETAMINOPHEN 650 MG/20 ML UDC- SA PATIENTS-PAIN ONLY PEG SCH (16:39)
[2019-12-01 20:04] VITALS: BP 133/67
[2019-12-02] MEDS: OMEPRAZOLE 20 MG CAPSULE.DR GT SCH (06:18)
[2019-12-02] MEDS: MIDODRINE 10 MG PEG SCH ×3 (06:18→21:34)
[2019-12-02 07:30] VITALS: BP 108/61
[2019-12-02] MEDS: PROTEIN SUPPLEMENT (PROSTAT) 30 ML LIQUID PEG SCH ×2 (08:30→21:33)
[2019-12-02] MEDS: FERROUS SULFATE 330 MG/7.5 ML UDC- FOR SA ONLY GT SCH ×2 (08:30→21:33)
[2019-12-02] MEDS: TIZANIDINE HCL 4 MG TABLET PEG SCH ×2 (08:30→17:07)
[2019-12-02] MEDS: NUTRISOURCE FIBER 4 GM PACKET PEG SCH ×2 (08:30→21:33)
[2019-12-02] MEDS: Z GUARD REMEDY PASTE 57 GM TUBE TOP SCH ×2 (08:30→21:34)
[2019-12-02] MEDS: DOCUSATE SODIUM 100 MG/10 ML LIQUID UDC GT SCH (08:30)
[2019-12-02] MEDS: HYDROGEN PEROXIDE 3% 118 ML BOTTLE TP SCH ×2 (08:39→21:54)
--- NOTE | 2019-12-02 16:30 | NUR ---
Provided video chat to pt. and her mother with no problem, kept pt. clean and comfortable , all needs attended and anticipated.
[2019-12-02] MEDS: ACETAMINOPHEN 650 MG/20 ML UDC- SA PATIENTS-PAIN ONLY PEG SCH (17:07)
[2019-12-02 20:36] VITALS: BP 124/77
[2019-12-03] MEDS: MIDODRINE 10 MG PEG SCH ×3 (06:00→22:04)
[2019-12-03] MEDS: MULTIVIT, IRON, MIN NO. 8, FA TABLET GT SCH (06:11)
[2019-12-03] MEDS: OMEPRAZOLE 20 MG CAPSULE.DR GT SCH (06:11)
[2019-12-03 07:50] VITALS: BP 110/64
[2019-12-03] MEDS: DOCUSATE SODIUM 100 MG/10 ML LIQUID UDC GT SCH (08:28)
[2019-12-03] MEDS: NUTRISOURCE FIBER 4 GM PACKET PEG SCH ×2 (08:29→20:17)
[2019-12-03] MEDS: PROTEIN SUPPLEMENT (PROSTAT) 30 ML LIQUID PEG SCH ×2 (08:29→20:17)
[2019-12-03] MEDS: FERROUS SULFATE 330 MG/7.5 ML UDC- FOR SA ONLY GT SCH ×2 (08:29→20:17)
[2019-12-03] MEDS: Z GUARD REMEDY PASTE 57 GM TUBE TOP SCH ×2 (08:30→20:19)
[2019-12-03] MEDS: TIZANIDINE HCL 4 MG TABLET PEG SCH ×2 (08:30→16:12)
[2019-12-03] MEDS: HYDROGEN PEROXIDE 3% 118 ML BOTTLE TP SCH ×2 (09:15→21:06)
[2019-12-03] MEDS: ACETAMINOPHEN 650 MG/20 ML UDC- SA PATIENTS-PAIN ONLY PEG SCH (16:12)
[2019-12-03 20:00] VITALS: BP 91/51
[2019-12-04] MEDS: OMEPRAZOLE 20 MG CAPSULE.DR GT SCH (05:37)
[2019-12-04 05:38] VITALS: BP 95/53
[2019-12-04] MEDS: MIDODRINE 10 MG PEG SCH ×3 (05:38→21:42)
[2019-12-04 07:41] VITALS: BP 120/64
[2019-12-04] MEDS: DOCUSATE SODIUM 100 MG/10 ML LIQUID UDC GT SCH (08:24)
[2019-12-04] MEDS: PROTEIN SUPPLEMENT (PROSTAT) 30 ML LIQUID PEG SCH ×2 (08:30→21:42)
[2019-12-04] MEDS: NUTRISOURCE FIBER 4 GM PACKET PEG SCH ×2 (08:30→21:42)
[2019-12-04] MEDS: FERROUS SULFATE 330 MG/7.5 ML UDC- FOR SA ONLY GT SCH ×2 (08:30→21:41)
[2019-12-04] MEDS: TIZANIDINE HCL 4 MG TABLET PEG SCH ×2 (08:31→17:57)
[2019-12-04] MEDS: Z GUARD REMEDY PASTE 57 GM TUBE TOP SCH ×2 (08:32→21:42)
[2019-12-04] MEDS: HYDROGEN PEROXIDE 3% 118 ML BOTTLE TP SCH ×2 (10:00→21:50)
--- NOTE | 2019-12-04 12:33 | NUR ---
JEY called patient's mother Morena [phone], who was available to speak with this SW. JEY informed Morena that the next IDT meeting for the patient has been scheduled for 12/09/2019 at 11am. JEY asked Morena if she wanted to participate by speaker phone, and Morena stated that she would like to. JEY informed Morena to be available between 11am-12pm to receive this SW's call during the meeting. Morena expressed understanding and agreement. JEY also checked in with Morena to see how she was feeling, and if she had any concerns at this time. Morena stated that she did not have any concerns, and continues to be happy with the care the nurses are providing the patient. Morena stated that she is in communication with the nurses on a daily basis, and communicates with the patient via ZOOM almost every day. Morena stated that she has also found self-care activities that help her manage her thoughts and feelings during this pandemic. JEY commended Morena for her efforts with self-care. Morena expressed appreciation for all the nurses and the entire subacute staff. JEY thanked Morena for her feedback. JEY informed Morean that SW received a call from [facility] [employer] [facility] stating that patient's Medicare group has switched from [employer] to [employer], effective 10/18/2019. Morena stated that she can contact them and ask why the change had occurred since she hadn't authorized the switch. JEY provided Morena with the name and phone number of the solar sales representative and assessor from [employer] that contacted this SW: Zita, .
--- NOTE | 2019-12-04 17:31 | NUR ---
SEEN BY DR. FRANK AND WITH NNO.
[2019-12-04] MEDS: ACETAMINOPHEN 650 MG/20 ML UDC- SA PATIENTS-PAIN ONLY PEG SCH (17:57)
[2019-12-04 20:00] VITALS: BP 99/56
[2019-12-05] MEDS: OMEPRAZOLE 20 MG CAPSULE.DR GT SCH (05:03)
[2019-12-05 05:04] VITALS: BP 118/68
[2019-12-05] MEDS: MIDODRINE 10 MG PEG SCH ×3 (05:04→21:55)
[2019-12-05] MEDS: MULTIVIT, IRON, MIN NO. 8, FA TABLET GT SCH (05:31)
--- NOTE | 2019-12-05 07:30 | NUR ---
SEEN BY ALICIA COTTO N.P. AND WITH NNO.
[2019-12-05 07:51] VITALS: BP 103/64
[2019-12-05] MEDS: DOCUSATE SODIUM 100 MG/10 ML LIQUID UDC GT SCH (08:28)
[2019-12-05] MEDS: Z GUARD REMEDY PASTE 57 GM TUBE TOP SCH ×2 (08:28→21:55)
[2019-12-05] MEDS: TIZANIDINE HCL 4 MG TABLET PEG SCH ×2 (08:28→16:29)
[2019-12-05] MEDS: NUTRISOURCE FIBER 4 GM PACKET PEG SCH ×2 (08:28→21:54)
[2019-12-05] MEDS: FERROUS SULFATE 330 MG/7.5 ML UDC- FOR SA ONLY GT SCH ×2 (08:28→21:54)
[2019-12-05] MEDS: PROTEIN SUPPLEMENT (PROSTAT) 30 ML LIQUID PEG SCH ×2 (08:28→21:54)
[2019-12-05] MEDS: HYDROGEN PEROXIDE 3% 118 ML BOTTLE TP SCH ×2 (09:15→21:09)
--- NOTE | 2019-12-05 11:47 | NUR ---
Patient's mother Morena asked this SW to assist her with calling patient's insurance health plan to discuss the change in the health plan, from [employer] to [employer]. This SW and patient's mother Morena called [employer] [phone] and spoke with Skye Ferro. Skye Ferro informed this SW and Morena that patient is part of [facility], and transferred the call to the [facility] department [phone]. This SW and Morena spoke with Tayla in the [facility] department (call ID # [id number]), and explained to Tayla that patient's health plan was recently switched to [employer] without anyone's knowledge or authorization, and that patient's mother is requesting to reinstate patient's insurance back to how it was with [employer]. Patient's ID # was provided to Talya: [id number]. Tayla stated that there was no authorized front office representative listed in patient's file, and therefore Tayla would not be able to provide any information or make any changes to patient's file at this time. Tayla asked for proof of authorized representation. JEY stated that JEY can fax conservatorship paperwork to Tayla. Tayla expressed agreement, and stated that it would take 2-3 days to process the conservatorship paperwork that is submitted, and then this SW and Morena can call [employer] [facility] back in order to work on reinstating patient's insurance back to how it was before. aTyla provided the fax # [phone]. JEY faxed patient's conservatorship paperwork to [phone], ATTN: [employer] Department. SW and patient's mother Morena to follow-up next week.
--- NOTE | 2019-12-05 16:00 | NUR ---
SEEN BY DR. LYNNE AND WITH NNO.
--- NOTE | 2019-12-05 16:00 | NUR ---
zoom provided to pt's mother.
[2019-12-05] MEDS: ACETAMINOPHEN 650 MG/20 ML UDC- SA PATIENTS-PAIN ONLY PEG SCH (16:29)
[2019-12-05 20:04] VITALS: BP 104/61
[2019-12-06] MEDS: TWOCAL HN 1,000 ML LIQUID PEG PRN (03:04)
[2019-12-06] MEDS: MIDODRINE 10 MG PEG SCH ×3 (05:22→21:34)
[2019-12-06] MEDS: OMEPRAZOLE 20 MG CAPSULE.DR GT SCH (05:22)
[2019-12-06 05:23] VITALS: BP 107/62
[2019-12-06] MEDS: HYDROGEN PEROXIDE 3% 118 ML BOTTLE TP SCH ×2 (07:36→21:08)
[2019-12-06 08:00] VITALS: BP 105/62
[2019-12-06] MEDS: DOCUSATE SODIUM 100 MG/10 ML LIQUID UDC GT SCH (08:49)
[2019-12-06] MEDS: FERROUS SULFATE 330 MG/7.5 ML UDC- FOR SA ONLY GT SCH ×2 (08:50→21:34)
[2019-12-06] MEDS: NUTRISOURCE FIBER 4 GM PACKET PEG SCH ×2 (08:50→21:34)
[2019-12-06] MEDS: TIZANIDINE HCL 4 MG TABLET PEG SCH ×2 (08:50→16:23)
[2019-12-06] MEDS: PROTEIN SUPPLEMENT (PROSTAT) 30 ML LIQUID PEG SCH ×2 (08:50→21:34)
[2019-12-06] MEDS: Z GUARD REMEDY PASTE 57 GM TUBE TOP SCH ×2 (08:50→21:34)
[2019-12-06 14:25] VITALS: BP 98/56
--- NOTE | 2019-12-06 16:00 | NUR ---
Zoom provided with pt's mother.
[2019-12-06] MEDS: ACETAMINOPHEN 650 MG/20 ML UDC- SA PATIENTS-PAIN ONLY PEG SCH (16:23)
[2019-12-06 20:16] VITALS: BP 93/65
[2019-12-07 05:25] VITALS: BP 98/62
[2019-12-07] MEDS: MIDODRINE 10 MG PEG SCH ×3 (05:25→22:06)
[2019-12-07] MEDS: OMEPRAZOLE 20 MG CAPSULE.DR GT SCH (05:25)
[2019-12-07] MEDS: MULTIVIT, IRON, MIN NO. 8, FA TABLET GT SCH (05:32)
[2019-12-07 07:46] VITALS: BP 108/58
[2019-12-07] MEDS: TIZANIDINE HCL 4 MG TABLET PEG SCH ×2 (09:00→16:33)
[2019-12-07] MEDS: NUTRISOURCE FIBER 4 GM PACKET PEG SCH ×2 (09:00→21:00)
[2019-12-07] MEDS: FERROUS SULFATE 330 MG/7.5 ML UDC- FOR SA ONLY GT SCH ×2 (09:00→21:00)
[2019-12-07] MEDS: PROTEIN SUPPLEMENT (PROSTAT) 30 ML LIQUID PEG SCH ×2 (09:00→21:00)
[2019-12-07] MEDS: Z GUARD REMEDY PASTE 57 GM TUBE TOP SCH ×2 (09:00→21:00)
[2019-12-07] MEDS: HYDROGEN PEROXIDE 3% 118 ML BOTTLE TP SCH ×2 (09:00→20:36)
[2019-12-07] MEDS: DOCUSATE SODIUM 100 MG/10 ML LIQUID UDC GT SCH (09:00)
--- NOTE | 2019-12-07 15:45 | NUR ---
ZOOM VIRTUAL VIDEO WITH THE MOTHER AND PT'S BROTHER IN THE ROOM FOR A GOOD 20MINUTES. PT APPEARS TO BE TIRED.
[2019-12-07] MEDS: ACETAMINOPHEN 650 MG/20 ML UDC- SA PATIENTS-PAIN ONLY PEG SCH (16:33)
[2019-12-07 20:07] VITALS: BP 92/52
[2019-12-08] MEDS: OMEPRAZOLE 20 MG CAPSULE.DR GT SCH (05:45)
[2019-12-08] MEDS: MIDODRINE 10 MG PEG SCH ×3 (05:45→22:00)
[2019-12-08] MEDS: HYDROGEN PEROXIDE 3% 118 ML BOTTLE TP SCH ×2 (07:24→21:13)
[2019-12-08 07:27] VITALS: BP 114/70
[2019-12-08] MEDS: FERROUS SULFATE 330 MG/7.5 ML UDC- FOR SA ONLY GT SCH ×2 (08:50→21:00)
[2019-12-08] MEDS: DOCUSATE SODIUM 100 MG/10 ML LIQUID UDC GT SCH (08:50)
[2019-12-08] MEDS: TIZANIDINE HCL 4 MG TABLET PEG SCH ×2 (08:50→17:26)
[2019-12-08] MEDS: NUTRISOURCE FIBER 4 GM PACKET PEG SCH ×2 (08:50→21:00)
[2019-12-08] MEDS: PROTEIN SUPPLEMENT (PROSTAT) 30 ML LIQUID PEG SCH ×2 (08:50→21:00)
[2019-12-08] MEDS: Z GUARD REMEDY PASTE 57 GM TUBE TOP SCH ×2 (08:50→21:00)
[2019-12-08] MEDS: TWOCAL HN 1,000 ML LIQUID PEG PRN (12:53)
[2019-12-08] MEDS: ACETAMINOPHEN 650 MG/20 ML UDC- SA PATIENTS-PAIN ONLY PEG SCH (17:26)
[2019-12-08 20:03] VITALS: BP 118/59
[2019-12-09] MEDS: MIDODRINE 10 MG PEG SCH ×3 (05:39→21:01)
[2019-12-09] MEDS: MULTIVIT, IRON, MIN NO. 8, FA TABLET GT SCH (05:39)
[2019-12-09] MEDS: OMEPRAZOLE 20 MG CAPSULE.DR GT SCH (05:39)
[2019-12-09 07:02] VITALS: BP 108/62
[2019-12-09 07:27] VITALS: BP 122/78
[2019-12-09] MEDS: HYDROGEN PEROXIDE 3% 118 ML BOTTLE TP SCH ×2 (09:01→20:59)
[2019-12-09] MEDS: DOCUSATE SODIUM 100 MG/10 ML LIQUID UDC GT SCH (09:45)
[2019-12-09] MEDS: FERROUS SULFATE 330 MG/7.5 ML UDC- FOR SA ONLY GT SCH ×2 (09:45→20:59)
[2019-12-09] MEDS: PROTEIN SUPPLEMENT (PROSTAT) 30 ML LIQUID PEG SCH ×2 (09:45→20:59)
[2019-12-09] MEDS: TIZANIDINE HCL 4 MG TABLET PEG SCH ×2 (09:45→17:36)
[2019-12-09] MEDS: NUTRISOURCE FIBER 4 GM PACKET PEG SCH ×2 (09:45→20:59)
[2019-12-09] MEDS: Z GUARD REMEDY PASTE 57 GM TUBE TOP SCH ×2 (09:46→20:59)
--- NOTE | 2019-12-09 16:24 | NUR ---
INTERDISCIPLINARY PLAN OF CARE CONFERENCE was held today. Patient's mother Morena was contacted during the meeting, in order for her to participate by speaker phone, however Morena was not available. Dr. Caraballo and the Interdisciplinary Team reviewed the current plan of care in detail. RN reported on patient's medical condition. See RN IDT conference notes. No major changes in medical condition were reported by nursing or by other disciplines. See all other disciplines IDT notes and physician's progress notes for additional details.
[2019-12-09] MEDS: ACETAMINOPHEN 650 MG/20 ML UDC- SA PATIENTS-PAIN ONLY PEG SCH (17:36)
[2019-12-09 20:28] VITALS: BP 117/72
[2019-12-10] MEDS: TWOCAL HN 1,000 ML LIQUID PEG PRN (04:30)
[2019-12-10] MEDS: OMEPRAZOLE 20 MG CAPSULE.DR GT SCH (05:29)
[2019-12-10] MEDS: MIDODRINE 10 MG PEG SCH ×4 (05:29→21:33)
[2019-12-10 07:35] VITALS: BP 107/73
[2019-12-10] MEDS: HYDROGEN PEROXIDE 3% 118 ML BOTTLE TP SCH ×2 (08:26→20:48)
[2019-12-10] MEDS: NUTRISOURCE FIBER 4 GM PACKET PEG SCH ×2 (08:52→21:31)
[2019-12-10] MEDS: PROTEIN SUPPLEMENT (PROSTAT) 30 ML LIQUID PEG SCH ×2 (08:52→21:31)
[2019-12-10] MEDS: DOCUSATE SODIUM 100 MG/10 ML LIQUID UDC GT SCH (08:52)
[2019-12-10] MEDS: FERROUS SULFATE 330 MG/7.5 ML UDC- FOR SA ONLY GT SCH ×2 (08:52→21:31)
[2019-12-10] MEDS: TIZANIDINE HCL 4 MG TABLET PEG SCH ×2 (08:52→17:59)
[2019-12-10] MEDS: Z GUARD REMEDY PASTE 57 GM TUBE TOP SCH ×2 (08:52→21:31)
--- NOTE | 2019-12-10 11:30 | NUR ---
ZOOM VIRTUAL VIDEO WITH THE MOTHER AND PT'S BROTHER. PATIENT AWAKE NOT IN ANY DISTRESS
[2019-12-10] MEDS: ACETAMINOPHEN 650 MG/20 ML UDC- SA PATIENTS-PAIN ONLY PEG SCH (17:59)
[2019-12-10 20:37] VITALS: BP 105/62
[2019-12-11] MEDS: OMEPRAZOLE 20 MG CAPSULE.DR GT SCH (05:37)
[2019-12-11] MEDS: MULTIVIT, IRON, MIN NO. 8, FA TABLET GT SCH (05:37)
[2019-12-11] MEDS: MIDODRINE 10 MG PEG SCH ×3 (05:42→21:52)
[2019-12-11 07:30] VITALS: BP 105/60
[2019-12-11] MEDS: Z GUARD REMEDY PASTE 57 GM TUBE TOP SCH ×2 (09:00→21:52)
[2019-12-11] MEDS: FERROUS SULFATE 330 MG/7.5 ML UDC- FOR SA ONLY GT SCH ×2 (09:00→21:51)
[2019-12-11] MEDS: DOCUSATE SODIUM 100 MG/10 ML LIQUID UDC GT SCH (09:00)
[2019-12-11] MEDS: PROTEIN SUPPLEMENT (PROSTAT) 30 ML LIQUID PEG SCH ×2 (09:00→21:52)
[2019-12-11] MEDS: NUTRISOURCE FIBER 4 GM PACKET PEG SCH ×2 (09:00→21:51)
[2019-12-11] MEDS: TIZANIDINE HCL 4 MG TABLET PEG SCH ×2 (09:00→17:24)
[2019-12-11] MEDS: HYDROGEN PEROXIDE 3% 118 ML BOTTLE TP SCH ×2 (09:31→21:02)
[2019-12-11] MEDS: ACETAMINOPHEN 650 MG/20 ML UDC- SA PATIENTS-PAIN ONLY PEG SCH (17:24)
[2019-12-11 20:00] VITALS: BP 105/55
[2019-12-12] MEDS: TWOCAL HN 1,000 ML LIQUID PEG PRN (05:00)
[2019-12-12] MEDS: OMEPRAZOLE 20 MG CAPSULE.DR GT SCH (05:43)
[2019-12-12] MEDS: MIDODRINE 10 MG PEG SCH ×3 (05:43→21:14)
[2019-12-12 07:43] VITALS: BP 110/65
[2019-12-12] MEDS: PROTEIN SUPPLEMENT (PROSTAT) 30 ML LIQUID PEG SCH ×2 (08:52→20:07)
[2019-12-12] MEDS: TIZANIDINE HCL 4 MG TABLET PEG SCH ×2 (08:52→17:40)
[2019-12-12] MEDS: DOCUSATE SODIUM 100 MG/10 ML LIQUID UDC GT SCH (08:52)
[2019-12-12] MEDS: Z GUARD REMEDY PASTE 57 GM TUBE TOP SCH ×2 (08:52→20:07)
[2019-12-12] MEDS: FERROUS SULFATE 330 MG/7.5 ML UDC- FOR SA ONLY GT SCH ×2 (08:52→20:07)
[2019-12-12] MEDS: NUTRISOURCE FIBER 4 GM PACKET PEG SCH ×2 (08:52→20:07)
[2019-12-12] MEDS: HYDROGEN PEROXIDE 3% 118 ML BOTTLE TP SCH ×2 (08:57→21:45)
[2019-12-12] MEDS: ACETAMINOPHEN 650 MG/20 ML UDC- SA PATIENTS-PAIN ONLY PEG SCH (17:40)
[2019-12-12 20:10] VITALS: BP 97/47
--- NOTE | 2019-12-12 21:45 | NUR ---
Patient received in stable respiratory condition on cool aerosol 28% FiO2. Ambubag and spare trach at bedside. Airway is patent and secured. Suctioned PRN. No SOB noted. Will continue to monitor.
[2019-12-13] MEDS: MULTIVIT, IRON, MIN NO. 8, FA TABLET GT SCH (05:35)
[2019-12-13] MEDS: OMEPRAZOLE 20 MG CAPSULE.DR GT SCH (05:35)
[2019-12-13] MEDS: MIDODRINE 10 MG PEG SCH ×3 (05:35→21:14)
[2019-12-13 08:01] VITALS: BP 110/60
[2019-12-13] MEDS: DOCUSATE SODIUM 100 MG/10 ML LIQUID UDC GT SCH (08:16)
[2019-12-13] MEDS: FERROUS SULFATE 330 MG/7.5 ML UDC- FOR SA ONLY GT SCH ×2 (08:16→20:05)
[2019-12-13] MEDS: TIZANIDINE HCL 4 MG TABLET PEG SCH ×2 (08:26→17:39)
[2019-12-13] MEDS: PROTEIN SUPPLEMENT (PROSTAT) 30 ML LIQUID PEG SCH ×2 (08:26→20:05)
[2019-12-13] MEDS: Z GUARD REMEDY PASTE 57 GM TUBE TOP SCH ×2 (08:26→20:05)
[2019-12-13] MEDS: NUTRISOURCE FIBER 4 GM PACKET PEG SCH ×2 (08:26→20:05)
[2019-12-13] MEDS: HYDROGEN PEROXIDE 3% 118 ML BOTTLE TP SCH ×2 (10:00→21:33)
[2019-12-13] MEDS: ACETAMINOPHEN 650 MG/20 ML UDC- SA PATIENTS-PAIN ONLY PEG SCH (17:39)
[2019-12-13 20:19] VITALS: BP 90/49
[2019-12-14] MEDS: TWOCAL HN 1,000 ML LIQUID PEG PRN (03:00)
[2019-12-14] MEDS: MIDODRINE 10 MG PEG SCH ×3 (05:08→21:10)
[2019-12-14] MEDS: OMEPRAZOLE 20 MG CAPSULE.DR GT SCH (05:08)
[2019-12-14 07:44] VITALS: BP 110/63
[2019-12-14] MEDS: DOCUSATE SODIUM 100 MG/10 ML LIQUID UDC GT SCH (08:39)
[2019-12-14] MEDS: FERROUS SULFATE 330 MG/7.5 ML UDC- FOR SA ONLY GT SCH ×2 (08:39→20:06)
[2019-12-14] MEDS: NUTRISOURCE FIBER 4 GM PACKET PEG SCH ×2 (08:40→20:06)
[2019-12-14] MEDS: TIZANIDINE HCL 4 MG TABLET PEG SCH ×2 (08:40→17:07)
[2019-12-14] MEDS: PROTEIN SUPPLEMENT (PROSTAT) 30 ML LIQUID PEG SCH ×2 (08:40→20:06)
[2019-12-14] MEDS: Z GUARD REMEDY PASTE 57 GM TUBE TOP SCH ×2 (08:40→20:06)
[2019-12-14] MEDS: HYDROGEN PEROXIDE 3% 118 ML BOTTLE TP SCH ×2 (09:00→21:27)
[2019-12-14] MEDS: ACETAMINOPHEN 650 MG/20 ML UDC- SA PATIENTS-PAIN ONLY PEG SCH (17:07)
[2019-12-14 20:13] VITALS: BP 112/60
--- NOTE | 2019-12-14 21:10 | NUR ---
2200 MIDODRINE 10MG TABLET HELD ORDERED DUE TO SBP GREATER THAN 110. BP: 112/60, HR: 89. WILL CONTINUE TO MONITOR.
[2019-12-15] MEDS: OMEPRAZOLE 20 MG CAPSULE.DR GT SCH (05:38)
[2019-12-15] MEDS: MULTIVIT, IRON, MIN NO. 8, FA TABLET GT SCH (05:38)
[2019-12-15] MEDS: MIDODRINE 10 MG PEG SCH ×3 (05:38→22:00)
[2019-12-15 07:34] VITALS: BP 105/40
[2019-12-15] MEDS: PROTEIN SUPPLEMENT (PROSTAT) 30 ML LIQUID PEG SCH ×2 (08:24→20:15)
[2019-12-15] MEDS: FERROUS SULFATE 330 MG/7.5 ML UDC- FOR SA ONLY GT SCH ×2 (08:24→20:15)
[2019-12-15] MEDS: DOCUSATE SODIUM 100 MG/10 ML LIQUID UDC GT SCH (08:24)
[2019-12-15] MEDS: NUTRISOURCE FIBER 4 GM PACKET PEG SCH ×2 (08:24→20:15)
[2019-12-15] MEDS: Z GUARD REMEDY PASTE 57 GM TUBE TOP SCH ×2 (08:24→20:16)
[2019-12-15] MEDS: TIZANIDINE HCL 4 MG TABLET PEG SCH ×2 (08:24→17:07)
[2019-12-15] MEDS: HYDROGEN PEROXIDE 3% 118 ML BOTTLE TP SCH ×2 (09:00→20:16)
--- NOTE | 2019-12-15 16:30 | NUR ---
Provided video chat to pt. and her mother and brother with no problem noted, pt kept clean and comfortable.
[2019-12-15] MEDS: ACETAMINOPHEN 650 MG/20 ML UDC- SA PATIENTS-PAIN ONLY PEG SCH (17:07)
[2019-12-15 20:10] VITALS: BP 124/70
[2019-12-16] MEDS: MIDODRINE 10 MG PEG SCH ×3 (05:02→21:49)
[2019-12-16] MEDS: OMEPRAZOLE 20 MG CAPSULE.DR GT SCH (05:02)
[2019-12-16 07:26] VITALS: BP 118/68
[2019-12-16] MEDS: PROTEIN SUPPLEMENT (PROSTAT) 30 ML LIQUID PEG SCH ×2 (08:44→21:49)
[2019-12-16] MEDS: TIZANIDINE HCL 4 MG TABLET PEG SCH ×2 (08:44→17:23)
[2019-12-16] MEDS: FERROUS SULFATE 330 MG/7.5 ML UDC- FOR SA ONLY GT SCH ×2 (08:44→21:49)
[2019-12-16] MEDS: DOCUSATE SODIUM 100 MG/10 ML LIQUID UDC GT SCH (08:44)
[2019-12-16] MEDS: NUTRISOURCE FIBER 4 GM PACKET PEG SCH ×2 (08:44→21:49)
[2019-12-16] MEDS: Z GUARD REMEDY PASTE 57 GM TUBE TOP SCH ×2 (08:44→21:49)
[2019-12-16] MEDS: HYDROGEN PEROXIDE 3% 118 ML BOTTLE TP SCH ×2 (08:57→19:14)
--- NOTE | 2019-12-16 17:00 | NUR ---
,Per Mother is okay to give Flu shot to her daughter.
[2019-12-16] MEDS: ACETAMINOPHEN 650 MG/20 ML UDC- SA PATIENTS-PAIN ONLY PEG SCH (17:23)
[2019-12-16 20:55] VITALS: BP 101/69
[2019-12-17 05:02] VITALS: BP 110/62
[2019-12-17] MEDS: MULTIVIT, IRON, MIN NO. 8, FA TABLET GT SCH (05:44)
[2019-12-17] MEDS: MIDODRINE 10 MG PEG SCH ×3 (05:44→21:48)
[2019-12-17] MEDS: OMEPRAZOLE 20 MG CAPSULE.DR GT SCH (05:44)
[2019-12-17 07:26] VITALS: BP 108/69
[2019-12-17] MEDS: DOCUSATE SODIUM 100 MG/10 ML LIQUID UDC GT SCH (08:30)
[2019-12-17] MEDS: PROTEIN SUPPLEMENT (PROSTAT) 30 ML LIQUID PEG SCH ×2 (08:32→21:47)
[2019-12-17] MEDS: FERROUS SULFATE 330 MG/7.5 ML UDC- FOR SA ONLY GT SCH ×2 (08:32→21:47)
[2019-12-17] MEDS: NUTRISOURCE FIBER 4 GM PACKET PEG SCH ×2 (08:32→21:47)
[2019-12-17] MEDS: TIZANIDINE HCL 4 MG TABLET PEG SCH ×2 (08:34→16:31)
[2019-12-17] MEDS: Z GUARD REMEDY PASTE 57 GM TUBE TOP SCH ×2 (08:34→21:47)
[2019-12-17] MEDS: HYDROGEN PEROXIDE 3% 118 ML BOTTLE TP SCH ×2 (09:00→21:34)
[2019-12-17] MEDS: ACETAMINOPHEN 650 MG/20 ML UDC- SA PATIENTS-PAIN ONLY PEG SCH (16:31)
--- NOTE | 2019-12-17 16:33 | NUR ---
3:05pm: JEY assisted patient's mother Morena [phone] with following up on patient's insurance status. This SW and Morena had called [facility] department [phone] on 12/04 in order to reinstate patient's insurance with the same [facility] medical group, after patient's insurance had switched patient's medical group to [employer] without Morena's knowledge. This SW had faxed over conservatorship paperwork to [facility] on 12/04 in order to update patient's records and to establish Morena has patient's legal associate sales representative. JEY and Morena called [facility] [phone] and spoke with Michele. Michele confirmed that [facility] had been received and uploaded on 12/07, confirming Morena as the legal associate sales representative for the patient. This JEY and Morena then proceeded with requesting patient's insurance be reinstated with the same medical group that patient had prior to the change on 10/17. The previous medical group was [facility], which is what patient's mother Morena wanted reinstated. Michele entered this request into their system, however stated that at this time he would not be able to complete the processing of this request because the request needed to be forwarded to the enrollment department for review. Michele stated that the reason for the review was because the reinstatement of the previous medical group resulted in the change of the primary physician to Christina Guerin, [id number], [place], [place], , and therefore it needed to be reviewed and approved by the enrollment department. Morena and this SW expressed understanding. Michele stated that he has put in the change request to go into effect as of 12/18/2019, but it was pending the review process, which Michele stated could take 5-7 business days. Michele stated that he put in a request for a call back to either this SW or patient's mother Morena for the outcome of the review process. This SW and patient's mother Morena will wait for a call back. The reference number for this call is [id number].
[2019-12-17] MEDS: TWOCAL HN 1,000 ML LIQUID PEG PRN (17:17)
[2019-12-17 20:04] VITALS: BP 124/65
[2019-12-18] MEDS: OMEPRAZOLE 20 MG CAPSULE.DR GT SCH (05:58)
[2019-12-18] MEDS: MIDODRINE 10 MG PEG SCH ×3 (05:58→22:10)
[2019-12-18 05:59] VITALS: BP 107/66
[2019-12-18 08:04] VITALS: BP 103/67
[2019-12-18] MEDS: PROTEIN SUPPLEMENT (PROSTAT) 30 ML LIQUID PEG SCH ×2 (09:05→21:00)
[2019-12-18] MEDS: NUTRISOURCE FIBER 4 GM PACKET PEG SCH ×2 (09:05→21:00)
[2019-12-18] MEDS: Z GUARD REMEDY PASTE 57 GM TUBE TOP SCH ×2 (09:05→21:00)
[2019-12-18] MEDS: FERROUS SULFATE 330 MG/7.5 ML UDC- FOR SA ONLY GT SCH ×2 (09:05→21:00)
[2019-12-18] MEDS: DOCUSATE SODIUM 100 MG/10 ML LIQUID UDC GT SCH (09:05)
[2019-12-18] MEDS: TIZANIDINE HCL 4 MG TABLET PEG SCH ×2 (09:05→17:45)
[2019-12-18] MEDS: HYDROGEN PEROXIDE 3% 118 ML BOTTLE TP SCH ×2 (09:06→21:00)
--- NOTE | 2019-12-18 16:00 | NUR ---
had zoom time with mother at this time.
[2019-12-18] MEDS: ACETAMINOPHEN 650 MG/20 ML UDC- SA PATIENTS-PAIN ONLY PEG SCH (17:45)
--- NOTE | 2019-12-18 19:22 | NUR ---
NEW ORDER OBTAINED FROM DR. LYNNE FOR FLU VACCINE.
[2019-12-18 20:00] VITALS: BP 88/52
[2019-12-19] MEDS: MIDODRINE 10 MG PEG SCH ×3 (05:05→21:08)
[2019-12-19] MEDS: OMEPRAZOLE 20 MG CAPSULE.DR GT SCH (05:05)
[2019-12-19] MEDS: MULTIVIT, IRON, MIN NO. 8, FA TABLET GT SCH (06:37)
[2019-12-19 08:12] VITALS: BP 101/55
[2019-12-19] MEDS: DOCUSATE SODIUM 100 MG/10 ML LIQUID UDC GT SCH (08:15)
[2019-12-19] MEDS: NUTRISOURCE FIBER 4 GM PACKET PEG SCH ×2 (08:16→21:07)
[2019-12-19] MEDS: PROTEIN SUPPLEMENT (PROSTAT) 30 ML LIQUID PEG SCH ×2 (08:16→21:07)
[2019-12-19] MEDS: TIZANIDINE HCL 4 MG TABLET PEG SCH ×2 (08:16→16:43)
[2019-12-19] MEDS: FERROUS SULFATE 330 MG/7.5 ML UDC- FOR SA ONLY GT SCH ×2 (08:16→21:07)
[2019-12-19] MEDS: Z GUARD REMEDY PASTE 57 GM TUBE TOP SCH ×2 (08:17→21:08)
[2019-12-19] MEDS: HYDROGEN PEROXIDE 3% 118 ML BOTTLE TP SCH ×2 (09:17→19:24)
[2019-12-19 13:39] VITALS: BP 99/54
--- NOTE | 2019-12-19 14:00 | NUR ---
Video chat provided to pt's mother.
[2019-12-19] MEDS: ACETAMINOPHEN 650 MG/20 ML UDC- SA PATIENTS-PAIN ONLY PEG SCH (16:43)
--- NOTE | 2019-12-19 18:44 | NUR ---
NO A/R TO FLU VACCINE ,AFEBRILE.
[2019-12-19 22:29] VITALS: BP 102/61
--- NOTE | 2019-12-19 22:57 | NUR ---
Afebrile, no adverse reactions noted from the flu vaccine.
[2019-12-20] MEDS: OMEPRAZOLE 20 MG CAPSULE.DR GT SCH (05:35)
[2019-12-20] MEDS: MIDODRINE 10 MG PEG SCH ×3 (05:35→21:58)
[2019-12-20 07:20] VITALS: BP 101/53
[2019-12-20 07:42] VITALS: BP 100/66
[2019-12-20] MEDS: HYDROGEN PEROXIDE 3% 118 ML BOTTLE TP SCH ×2 (08:48→21:00)
[2019-12-20] MEDS: DOCUSATE SODIUM 100 MG/10 ML LIQUID UDC GT SCH (08:58)
[2019-12-20] MEDS: FERROUS SULFATE 330 MG/7.5 ML UDC- FOR SA ONLY GT SCH ×2 (08:58→20:08)
[2019-12-20] MEDS: NUTRISOURCE FIBER 4 GM PACKET PEG SCH ×2 (08:59→20:08)
[2019-12-20] MEDS: TIZANIDINE HCL 4 MG TABLET PEG SCH ×2 (08:59→16:34)
[2019-12-20] MEDS: PROTEIN SUPPLEMENT (PROSTAT) 30 ML LIQUID PEG SCH ×2 (08:59→20:08)
[2019-12-20] MEDS: Z GUARD REMEDY PASTE 57 GM TUBE TOP SCH ×2 (09:00→20:08)
[2019-12-20 14:15] VITALS: BP 100/60
--- NOTE | 2019-12-20 16:11 | NUR ---
Video chat provided with pt's mother.
[2019-12-20] MEDS: ACETAMINOPHEN 650 MG/20 ML UDC- SA PATIENTS-PAIN ONLY PEG SCH (16:34)
--- NOTE | 2019-12-20 18:00 | NUR ---
NO A/R TO FLU VACCINE ,AFEBRILE.
--- NOTE | 2019-12-20 21:52 | NUR ---
Afebrile, no adverse reactions from flu vaccine, no redness on injection site.
[2019-12-20 22:23] VITALS: BP 101/56
[2019-12-21 05:15] VITALS: BP 106/62
[2019-12-21] MEDS: MULTIVIT, IRON, MIN NO. 8, FA TABLET GT SCH (06:37)
[2019-12-21] MEDS: MIDODRINE 10 MG PEG SCH ×3 (06:37→21:06)
[2019-12-21] MEDS: OMEPRAZOLE 20 MG CAPSULE.DR GT SCH (06:37)
[2019-12-21 07:45] VITALS: BP 116/56
[2019-12-21] MEDS: Z GUARD REMEDY PASTE 57 GM TUBE TOP SCH ×2 (08:27→21:06)
[2019-12-21] MEDS: FERROUS SULFATE 330 MG/7.5 ML UDC- FOR SA ONLY GT SCH ×2 (08:27→21:06)
[2019-12-21] MEDS: DOCUSATE SODIUM 100 MG/10 ML LIQUID UDC GT SCH (08:27)
[2019-12-21] MEDS: TIZANIDINE HCL 4 MG TABLET PEG SCH ×2 (08:27→16:13)
[2019-12-21] MEDS: NUTRISOURCE FIBER 4 GM PACKET PEG SCH ×2 (08:27→21:06)
[2019-12-21] MEDS: PROTEIN SUPPLEMENT (PROSTAT) 30 ML LIQUID PEG SCH ×2 (08:27→21:06)
[2019-12-21] MEDS: HYDROGEN PEROXIDE 3% 118 ML BOTTLE TP SCH ×2 (09:09→21:40)
--- NOTE | 2019-12-21 13:27 | NUR ---
SEEN BY DR. LYNNE AND WITH NNO.
--- NOTE | 2019-12-21 13:51 | NUR ---
NO A/R TO FLU VACCINE ,AFEBRILE.
[2019-12-21] MEDS: ACETAMINOPHEN 650 MG/20 ML UDC- SA PATIENTS-PAIN ONLY PEG SCH (16:13)
[2019-12-21] MEDS: TWOCAL HN 1,000 ML LIQUID PEG PRN (16:13)
[2019-12-21 22:34] VITALS: BP 103/56
[2019-12-22] MEDS: MIDODRINE 10 MG PEG SCH ×3 (05:09→21:48)
[2019-12-22] MEDS: OMEPRAZOLE 20 MG CAPSULE.DR GT SCH (05:09)
--- NOTE | 2019-12-22 07:06 | NUR ---
No A/R to flu vaccine, afebrile.
[2019-12-22] MEDS: FERROUS SULFATE 330 MG/7.5 ML UDC- FOR SA ONLY GT SCH ×2 (08:24→21:48)
[2019-12-22] MEDS: DOCUSATE SODIUM 100 MG/10 ML LIQUID UDC GT SCH (08:24)
[2019-12-22] MEDS: PROTEIN SUPPLEMENT (PROSTAT) 30 ML LIQUID PEG SCH ×2 (08:25→21:48)
[2019-12-22] MEDS: NUTRISOURCE FIBER 4 GM PACKET PEG SCH ×2 (08:25→21:48)
[2019-12-22] MEDS: Z GUARD REMEDY PASTE 57 GM TUBE TOP SCH ×2 (08:26→21:48)
[2019-12-22] MEDS: TIZANIDINE HCL 4 MG TABLET PEG SCH ×2 (08:26→17:21)
[2019-12-22] MEDS: HYDROGEN PEROXIDE 3% 118 ML BOTTLE TP SCH ×2 (09:13→21:39)
--- NOTE | 2019-12-22 10:00 | NUR ---
SEEN BY YADIEL Doll AND WITH DIONISIOO.
[2019-12-22] MEDS: ACETAMINOPHEN 650 MG/20 ML UDC- SA PATIENTS-PAIN ONLY PEG SCH (17:21)
[2019-12-22 20:05] VITALS: BP 116/62
[2019-12-23] MEDS: MIDODRINE 10 MG PEG SCH ×3 (05:50→21:39)
[2019-12-23] MEDS: OMEPRAZOLE 20 MG CAPSULE.DR GT SCH (05:50)
[2019-12-23] MEDS: MULTIVIT, IRON, MIN NO. 8, FA TABLET GT SCH (05:50)
[2019-12-23 07:24] VITALS: BP 96/57
[2019-12-23] MEDS: DOCUSATE SODIUM 100 MG/10 ML LIQUID UDC GT SCH (08:15)
[2019-12-23] MEDS: FERROUS SULFATE 330 MG/7.5 ML UDC- FOR SA ONLY GT SCH ×2 (08:16→21:39)
[2019-12-23] MEDS: NUTRISOURCE FIBER 4 GM PACKET PEG SCH ×2 (08:16→21:39)
[2019-12-23] MEDS: PROTEIN SUPPLEMENT (PROSTAT) 30 ML LIQUID PEG SCH ×2 (08:16→21:39)
[2019-12-23] MEDS: Z GUARD REMEDY PASTE 57 GM TUBE TOP SCH ×2 (08:17→21:39)
[2019-12-23] MEDS: TIZANIDINE HCL 4 MG TABLET PEG SCH ×2 (08:17→16:46)
[2019-12-23] MEDS: HYDROGEN PEROXIDE 3% 118 ML BOTTLE TP SCH ×2 (09:26→21:22)
[2019-12-23 13:03] VITALS: BP 91/58
--- NOTE | 2019-12-23 13:30 | NUR ---
video chat done with patient's mother at this time.
[2019-12-23] MEDS: ACETAMINOPHEN 650 MG/20 ML UDC- SA PATIENTS-PAIN ONLY PEG SCH (16:47)
[2019-12-23] MEDS: POLYVINYL ALCOHOL OPHT DROPS 15 ML BOTTLE EACHEYE PRN (17:05)
[2019-12-23] MEDS: TRIAMCINOLONE ACET 0.1% OINT 15 GM TUBE TP PRN (17:05)
[2019-12-23 20:40] VITALS: BP 93/59
[2019-12-24] MEDS: TWOCAL HN 1,000 ML LIQUID PEG PRN (01:42)
[2019-12-24] MEDS: OMEPRAZOLE 20 MG CAPSULE.DR GT SCH (05:11)
[2019-12-24] MEDS: MIDODRINE 10 MG PEG SCH ×3 (05:11→21:28)
[2019-12-24] MEDS: HYDROGEN PEROXIDE 3% 118 ML BOTTLE TP SCH ×2 (07:10→21:40)
[2019-12-24 07:35] VITALS: BP 110/62
[2019-12-24] MEDS: NUTRISOURCE FIBER 4 GM PACKET PEG SCH ×2 (08:39→21:23)
[2019-12-24] MEDS: POLYVINYL ALCOHOL OPHT DROPS 15 ML BOTTLE EACHEYE PRN (08:39)
[2019-12-24] MEDS: Z GUARD REMEDY PASTE 57 GM TUBE TOP SCH ×2 (08:39→21:28)
[2019-12-24] MEDS: TIZANIDINE HCL 4 MG TABLET PEG SCH ×2 (08:39→16:31)
[2019-12-24] MEDS: DOCUSATE SODIUM 100 MG/10 ML LIQUID UDC GT SCH (08:39)
[2019-12-24] MEDS: TRIAMCINOLONE ACET 0.1% OINT 15 GM TUBE TP PRN (08:39)
[2019-12-24] MEDS: FERROUS SULFATE 330 MG/7.5 ML UDC- FOR SA ONLY GT SCH ×2 (08:39→21:23)
[2019-12-24] MEDS: PROTEIN SUPPLEMENT (PROSTAT) 30 ML LIQUID PEG SCH ×2 (08:39→21:23)
[2019-12-24 14:00] VITALS: BP 98/67
--- NOTE | 2019-12-24 14:30 | NUR ---
new orders noted for skin irritation above GT site.
[2019-12-24] MEDS: NEOMY/BACITRA/POLYMYXIN B OINT UD PACKET TP SCH ×2 (16:30→21:28)
[2019-12-24] MEDS: ACETAMINOPHEN 650 MG/20 ML UDC- SA PATIENTS-PAIN ONLY PEG SCH (16:31)
[2019-12-24 19:40] VITALS: BP 95/53
--- NOTE | 2019-12-24 22:11 | NUR ---
Seen and examined by Marta Guerin Np with no new orders.
[2019-12-25] MEDS: MIDODRINE 10 MG PEG SCH ×3 (05:18→22:00)
[2019-12-25] MEDS: OMEPRAZOLE 20 MG CAPSULE.DR GT SCH (05:18)
[2019-12-25] MEDS: MULTIVIT, IRON, MIN NO. 8, FA TABLET GT SCH (05:41)
[2019-12-25 07:21] VITALS: BP 110/64
[2019-12-25] MEDS: TIZANIDINE HCL 4 MG TABLET PEG SCH ×2 (09:03→17:11)
[2019-12-25] MEDS: DOCUSATE SODIUM 100 MG/10 ML LIQUID UDC GT SCH (09:03)
[2019-12-25] MEDS: NEOMY/BACITRA/POLYMYXIN B OINT UD PACKET TP SCH ×2 (09:03→20:36)
[2019-12-25] MEDS: NUTRISOURCE FIBER 4 GM PACKET PEG SCH ×2 (09:03→20:35)
[2019-12-25] MEDS: Z GUARD REMEDY PASTE 57 GM TUBE TOP SCH ×2 (09:03→20:35)
[2019-12-25] MEDS: PROTEIN SUPPLEMENT (PROSTAT) 30 ML LIQUID PEG SCH ×2 (09:03→20:35)
[2019-12-25] MEDS: FERROUS SULFATE 330 MG/7.5 ML UDC- FOR SA ONLY GT SCH ×2 (09:03→20:35)
[2019-12-25] MEDS: HYDROGEN PEROXIDE 3% 118 ML BOTTLE TP SCH ×2 (09:29→21:29)
[2019-12-25 14:00] VITALS: BP 99/57
[2019-12-25] MEDS: ACETAMINOPHEN 650 MG/20 ML UDC- SA PATIENTS-PAIN ONLY PEG SCH (17:11)
[2019-12-25 19:58] VITALS: BP 95/57
--- NOTE | 2019-12-25 20:40 | NUR ---
CALLED [employer], DEMETRICE RAMACHANDRAN ON [phone] AND INFORMED HER OF POSSIBLE COVID-19 EXPOSURE ON THE SUBACUTE UNIT AND THE FOLLOW UP TESTING PLAN FOR THE NEXT 14 DAYS, MANDATED BY [facility] REGULATIONS. ALSO NOTIFIED DEMETRICE THAT NURSING WILL CALL HER WITH THE RESULT IT BECOMES AVAILABLE. DEMETRICE EXPRESSED UNDERSTANDING.
--- NOTE | 2019-12-26 01:21 | NUR ---
Patient is afebrile, No respiratory distress noted, 02 sat is 98%, will continue monitor.
[2019-12-26] MEDS: OMEPRAZOLE 20 MG CAPSULE.DR GT SCH (06:12)
[2019-12-26] MEDS: MIDODRINE 10 MG PEG SCH ×3 (06:12→21:28)
[2019-12-26 06:13] VITALS: BP 104/63
[2019-12-26] MEDS: TWOCAL HN 1,000 ML LIQUID PEG PRN (06:59)
[2019-12-26] MEDS: HYDROGEN PEROXIDE 3% 118 ML BOTTLE TP SCH ×2 (07:26→21:50)
[2019-12-26 08:16] VITALS: BP 100/58
[2019-12-26] MEDS: TIZANIDINE HCL 4 MG TABLET PEG SCH ×2 (08:38→16:44)
[2019-12-26] MEDS: PROTEIN SUPPLEMENT (PROSTAT) 30 ML LIQUID PEG SCH ×2 (08:38→21:28)
[2019-12-26] MEDS: Z GUARD REMEDY PASTE 57 GM TUBE TOP SCH ×2 (08:38→21:28)
[2019-12-26] MEDS: FERROUS SULFATE 330 MG/7.5 ML UDC- FOR SA ONLY GT SCH ×2 (08:38→21:28)
[2019-12-26] MEDS: DOCUSATE SODIUM 100 MG/10 ML LIQUID UDC GT SCH (08:38)
[2019-12-26] MEDS: NEOMY/BACITRA/POLYMYXIN B OINT UD PACKET TP SCH ×2 (08:38→21:28)
[2019-12-26] MEDS: NUTRISOURCE FIBER 4 GM PACKET PEG SCH ×2 (08:38→21:28)
[2019-12-26 13:39] VITALS: BP 111/62
[2019-12-26] MEDS: ACETAMINOPHEN 650 MG/20 ML UDC- SA PATIENTS-PAIN ONLY PEG SCH (16:44)
[2019-12-26 20:10] VITALS: BP 100/58
[2019-12-27] MEDS: OMEPRAZOLE 20 MG CAPSULE.DR GT SCH (05:17)
[2019-12-27] MEDS: MIDODRINE 10 MG PEG SCH ×3 (05:17→22:13)
[2019-12-27] MEDS: MULTIVIT, IRON, MIN NO. 8, FA TABLET GT SCH (05:58)
[2019-12-27 07:33] VITALS: BP 111/66
[2019-12-27] MEDS: TIZANIDINE HCL 4 MG TABLET PEG SCH ×2 (08:10→17:28)
[2019-12-27] MEDS: FERROUS SULFATE 330 MG/7.5 ML UDC- FOR SA ONLY GT SCH ×2 (08:10→20:10)
[2019-12-27] MEDS: Z GUARD REMEDY PASTE 57 GM TUBE TOP SCH ×2 (08:10→20:10)
[2019-12-27] MEDS: NEOMY/BACITRA/POLYMYXIN B OINT UD PACKET TP SCH ×2 (08:10→20:10)
[2019-12-27] MEDS: DOCUSATE SODIUM 100 MG/10 ML LIQUID UDC GT SCH (08:10)
[2019-12-27] MEDS: PROTEIN SUPPLEMENT (PROSTAT) 30 ML LIQUID PEG SCH ×2 (08:10→20:10)
[2019-12-27] MEDS: NUTRISOURCE FIBER 4 GM PACKET PEG SCH ×2 (08:10→20:10)
[2019-12-27] MEDS: HYDROGEN PEROXIDE 3% 118 ML BOTTLE TP SCH ×2 (09:00→21:05)
[2019-12-27 14:22] VITALS: BP 93/59
[2019-12-27] MEDS: ACETAMINOPHEN 650 MG/20 ML UDC- SA PATIENTS-PAIN ONLY PEG SCH (17:28)
[2019-12-27 20:11] VITALS: BP 98/55
[2019-12-27 22:00] VITALS: BP 98/55
[2019-12-28] MEDS: TWOCAL HN 1,000 ML LIQUID PEG PRN (03:15)
[2019-12-28 05:13] VITALS: BP 100/58
[2019-12-28] MEDS: OMEPRAZOLE 20 MG CAPSULE.DR GT SCH (05:13)
[2019-12-28] MEDS: MIDODRINE 10 MG PEG SCH ×3 (05:13→21:02)
[2019-12-28] MEDS: HYDROGEN PEROXIDE 3% 118 ML BOTTLE TP SCH ×2 (07:41→21:30)
[2019-12-28 07:52] VITALS: BP 93/78
[2019-12-28] MEDS: DOCUSATE SODIUM 100 MG/10 ML LIQUID UDC GT SCH (09:09)
[2019-12-28] MEDS: FERROUS SULFATE 330 MG/7.5 ML UDC- FOR SA ONLY GT SCH ×2 (09:09→21:02)
[2019-12-28] MEDS: NEOMY/BACITRA/POLYMYXIN B OINT UD PACKET TP SCH ×2 (09:10→21:02)
[2019-12-28] MEDS: Z GUARD REMEDY PASTE 57 GM TUBE TOP SCH ×2 (09:10→21:02)
[2019-12-28] MEDS: PROTEIN SUPPLEMENT (PROSTAT) 30 ML LIQUID PEG SCH ×2 (09:10→21:02)
[2019-12-28] MEDS: TIZANIDINE HCL 4 MG TABLET PEG SCH ×2 (09:10→17:00)
[2019-12-28] MEDS: NUTRISOURCE FIBER 4 GM PACKET PEG SCH ×2 (09:10→21:02)
[2019-12-28] MEDS: ACETAMINOPHEN 650 MG/20 ML UDC- SA PATIENTS-PAIN ONLY PEG SCH (17:00)
[2019-12-28 20:14] VITALS: BP 90/59
[2019-12-29] MEDS: OMEPRAZOLE 20 MG CAPSULE.DR GT SCH (06:02)
[2019-12-29] MEDS: MIDODRINE 10 MG PEG SCH ×3 (06:02→21:09)
[2019-12-29] MEDS: MULTIVIT, IRON, MIN NO. 8, FA TABLET GT SCH (06:02)
[2019-12-29 07:10] VITALS: BP 102/62
[2019-12-29 07:32] VITALS: BP 114/61
[2019-12-29] MEDS: FERROUS SULFATE 330 MG/7.5 ML UDC- FOR SA ONLY GT SCH ×2 (08:45→21:09)
[2019-12-29] MEDS: NUTRISOURCE FIBER 4 GM PACKET PEG SCH ×2 (08:45→21:09)
[2019-12-29] MEDS: TIZANIDINE HCL 4 MG TABLET PEG SCH ×2 (08:45→17:53)
[2019-12-29] MEDS: PROTEIN SUPPLEMENT (PROSTAT) 30 ML LIQUID PEG SCH ×2 (08:45→21:09)
[2019-12-29] MEDS: NEOMY/BACITRA/POLYMYXIN B OINT UD PACKET TP SCH ×2 (08:45→21:09)
[2019-12-29] MEDS: DOCUSATE SODIUM 100 MG/10 ML LIQUID UDC GT SCH (08:45)
[2019-12-29] MEDS: Z GUARD REMEDY PASTE 57 GM TUBE TOP SCH ×2 (08:45→21:09)
[2019-12-29] MEDS: HYDROGEN PEROXIDE 3% 118 ML BOTTLE TP SCH ×2 (09:15→21:23)
[2019-12-29] MEDS: ACETAMINOPHEN 650 MG/20 ML UDC- SA PATIENTS-PAIN ONLY PEG SCH (17:53)
[2019-12-29 20:06] VITALS: BP 101/62
[2019-12-30] MEDS: MIDODRINE 10 MG PEG SCH ×3 (05:44→21:52)
[2019-12-30] MEDS: OMEPRAZOLE 20 MG CAPSULE.DR GT SCH (05:44)
[2019-12-30 07:07] VITALS: BP 113/66
[2019-12-30] MEDS: HYDROGEN PEROXIDE 3% 118 ML BOTTLE TP SCH ×2 (07:37→21:00)
[2019-12-30 07:54] VITALS: BP 106/52
[2019-12-30] MEDS: FERROUS SULFATE 330 MG/7.5 ML UDC- FOR SA ONLY GT SCH ×2 (08:20→21:49)
[2019-12-30] MEDS: PROTEIN SUPPLEMENT (PROSTAT) 30 ML LIQUID PEG SCH ×2 (08:20→21:51)
[2019-12-30] MEDS: NUTRISOURCE FIBER 4 GM PACKET PEG SCH ×2 (08:20→21:45)
[2019-12-30] MEDS: DOCUSATE SODIUM 100 MG/10 ML LIQUID UDC GT SCH (08:20)
[2019-12-30] MEDS: TIZANIDINE HCL 4 MG TABLET PEG SCH ×2 (08:20→17:44)
[2019-12-30] MEDS: NEOMY/BACITRA/POLYMYXIN B OINT UD PACKET TP SCH ×2 (08:21→21:52)
[2019-12-30] MEDS: Z GUARD REMEDY PASTE 57 GM TUBE TOP SCH ×2 (08:21→21:52)
[2019-12-30] MEDS: ACETAMINOPHEN 650 MG/20 ML UDC- SA PATIENTS-PAIN ONLY PEG SCH ×2 (17:45→18:45)
[2019-12-30 20:01] VITALS: BP 99/57
--- NOTE | 2019-12-30 21:06 | NUR ---
nabil nelson, mother notified covid 19 is negative.
[2019-12-31] MEDS: MIDODRINE 10 MG PEG SCH ×3 (05:47→21:33)
[2019-12-31] MEDS: MULTIVIT, IRON, MIN NO. 8, FA TABLET GT SCH (05:47)
[2019-12-31] MEDS: OMEPRAZOLE 20 MG CAPSULE.DR GT SCH (05:47)
[2019-12-31 05:48] VITALS: BP 112/62
--- NOTE | 2019-12-31 06:21 | NUR ---
marge elena n.p. was in, no new orders.
[2019-12-31 07:43] VITALS: BP 120/64
[2019-12-31] MEDS: FERROUS SULFATE 330 MG/7.5 ML UDC- FOR SA ONLY GT SCH ×2 (08:42→21:33)
[2019-12-31] MEDS: PROTEIN SUPPLEMENT (PROSTAT) 30 ML LIQUID PEG SCH ×2 (08:42→21:33)
[2019-12-31] MEDS: NUTRISOURCE FIBER 4 GM PACKET PEG SCH ×2 (08:42→21:33)
[2019-12-31] MEDS: Z GUARD REMEDY PASTE 57 GM TUBE TOP SCH ×2 (08:43→21:33)
[2019-12-31] MEDS: NEOMY/BACITRA/POLYMYXIN B OINT UD PACKET TP SCH ×2 (08:43→21:33)
[2019-12-31] MEDS: TIZANIDINE HCL 4 MG TABLET PEG SCH ×2 (08:43→17:10)
[2019-12-31] MEDS: HYDROGEN PEROXIDE 3% 118 ML BOTTLE TP SCH ×2 (09:00→09:29)
[2019-12-31] MEDS: DOCUSATE SODIUM 100 MG/10 ML LIQUID UDC GT SCH (09:03)
[2019-12-31] MEDS: ACETAMINOPHEN 650 MG/20 ML UDC- SA PATIENTS-PAIN ONLY PEG SCH (17:09)
[2019-12-31 19:47] VITALS: BP 92/48
[2020-01-01 05:14] VITALS: BP 102/56
[2020-01-01] MEDS: OMEPRAZOLE 20 MG CAPSULE.DR GT SCH (05:14)
[2020-01-01] MEDS: MIDODRINE 10 MG PEG SCH ×3 (05:14→21:52)
[2020-01-01 07:38] VITALS: BP 120/64
[2020-01-01] MEDS: HYDROGEN PEROXIDE 3% 118 ML BOTTLE TP SCH ×3 (08:31→21:13)
[2020-01-01] MEDS: TIZANIDINE HCL 4 MG TABLET PEG SCH ×2 (08:34→17:14)
[2020-01-01] MEDS: NUTRISOURCE FIBER 4 GM PACKET PEG SCH ×2 (08:34→21:52)
[2020-01-01] MEDS: Z GUARD REMEDY PASTE 57 GM TUBE TOP SCH ×2 (08:34→21:52)
[2020-01-01] MEDS: NEOMY/BACITRA/POLYMYXIN B OINT UD PACKET TP SCH ×2 (08:34→21:52)
[2020-01-01] MEDS: FERROUS SULFATE 330 MG/7.5 ML UDC- FOR SA ONLY GT SCH ×2 (08:34→21:52)
[2020-01-01] MEDS: DOCUSATE SODIUM 100 MG/10 ML LIQUID UDC GT SCH (08:34)
[2020-01-01] MEDS: PROTEIN SUPPLEMENT (PROSTAT) 30 ML LIQUID PEG SCH ×2 (08:34→21:52)
--- NOTE | 2020-01-01 16:10 | NUR ---
ZOOM VIRTUAL VIDEO WITH THE MOTHER
[2020-01-01] MEDS: ACETAMINOPHEN 650 MG/20 ML UDC- SA PATIENTS-PAIN ONLY PEG SCH (17:14)
--- NOTE | 2020-01-01 18:34 | NUR ---
SEEN BY DR. FRANK AND WITH NNO.
[2020-01-01 23:01] VITALS: BP 100/67
[2020-01-02] MEDS: TWOCAL HN 1,000 ML LIQUID PEG PRN (00:46)
[2020-01-02] MEDS: MULTIVIT, IRON, MIN NO. 8, FA TABLET GT SCH (05:41)
[2020-01-02] MEDS: OMEPRAZOLE 20 MG CAPSULE.DR GT SCH (05:41)
[2020-01-02] MEDS: MIDODRINE 10 MG PEG SCH ×3 (05:41→21:04)
[2020-01-02 07:51] VITALS: BP 103/66
[2020-01-02] MEDS: FERROUS SULFATE 330 MG/7.5 ML UDC- FOR SA ONLY GT SCH ×2 (08:16→20:06)
[2020-01-02] MEDS: DOCUSATE SODIUM 100 MG/10 ML LIQUID UDC GT SCH (08:16)
[2020-01-02] MEDS: TIZANIDINE HCL 4 MG TABLET PEG SCH ×2 (08:16→16:19)
[2020-01-02] MEDS: PROTEIN SUPPLEMENT (PROSTAT) 30 ML LIQUID PEG SCH ×2 (08:16→20:06)
[2020-01-02] MEDS: NUTRISOURCE FIBER 4 GM PACKET PEG SCH ×2 (08:16→20:06)
[2020-01-02] MEDS: Z GUARD REMEDY PASTE 57 GM TUBE TOP SCH ×2 (08:17→20:06)
[2020-01-02] MEDS: NEOMY/BACITRA/POLYMYXIN B OINT UD PACKET TP SCH ×2 (08:17→20:06)
[2020-01-02] MEDS: HYDROGEN PEROXIDE 3% 118 ML BOTTLE TP SCH ×2 (09:45→21:20)
[2020-01-02] MEDS: ACETAMINOPHEN 650 MG/20 ML UDC- SA PATIENTS-PAIN ONLY PEG SCH (16:19)
--- NOTE | 2020-01-02 18:51 | NUR ---
zoom meeting provided to PT's mother
[2020-01-02 22:31] VITALS: BP 98/58
[2020-01-03] MEDS: OMEPRAZOLE 20 MG CAPSULE.DR GT SCH (05:40)
[2020-01-03] MEDS: MIDODRINE 10 MG PEG SCH ×4 (05:40→21:20)
[2020-01-03 07:42] VITALS: BP 101/53
[2020-01-03] MEDS: DOCUSATE SODIUM 100 MG/10 ML LIQUID UDC GT SCH (08:55)
[2020-01-03] MEDS: FERROUS SULFATE 330 MG/7.5 ML UDC- FOR SA ONLY GT SCH ×2 (08:55→20:06)
[2020-01-03] MEDS: Z GUARD REMEDY PASTE 57 GM TUBE TOP SCH ×2 (08:56→20:06)
[2020-01-03] MEDS: NEOMY/BACITRA/POLYMYXIN B OINT UD PACKET TP SCH ×2 (08:56→20:06)
[2020-01-03] MEDS: TIZANIDINE HCL 4 MG TABLET PEG SCH ×2 (08:56→17:39)
[2020-01-03] MEDS: PROTEIN SUPPLEMENT (PROSTAT) 30 ML LIQUID PEG SCH ×2 (08:56→20:06)
[2020-01-03] MEDS: NUTRISOURCE FIBER 4 GM PACKET PEG SCH ×2 (08:56→20:06)
[2020-01-03] MEDS: HYDROGEN PEROXIDE 3% 118 ML BOTTLE TP SCH ×2 (09:15→19:35)
[2020-01-03] MEDS: ACETAMINOPHEN 650 MG/20 ML UDC- SA PATIENTS-PAIN ONLY PEG SCH (17:39)
[2020-01-03 23:00] VITALS: BP 93/52
[2020-01-04] MEDS: TWOCAL HN 1,000 ML LIQUID PEG PRN (04:22)
[2020-01-04] MEDS: OMEPRAZOLE 20 MG CAPSULE.DR GT SCH (05:42)
[2020-01-04] MEDS: MIDODRINE 10 MG PEG SCH ×3 (05:43→21:18)
[2020-01-04] MEDS: MULTIVIT, IRON, MIN NO. 8, FA TABLET GT SCH (05:43)
[2020-01-04 07:39] VITALS: BP 103/70
[2020-01-04] MEDS: DOCUSATE SODIUM 100 MG/10 ML LIQUID UDC GT SCH (08:44)
[2020-01-04] MEDS: NUTRISOURCE FIBER 4 GM PACKET PEG SCH ×2 (08:45→20:20)
[2020-01-04] MEDS: TIZANIDINE HCL 4 MG TABLET PEG SCH ×2 (08:45→17:22)
[2020-01-04] MEDS: PROTEIN SUPPLEMENT (PROSTAT) 30 ML LIQUID PEG SCH ×2 (08:45→20:20)
[2020-01-04] MEDS: FERROUS SULFATE 330 MG/7.5 ML UDC- FOR SA ONLY GT SCH ×2 (08:45→20:20)
[2020-01-04] MEDS: Z GUARD REMEDY PASTE 57 GM TUBE TOP SCH ×2 (08:46→20:20)
[2020-01-04] MEDS: NEOMY/BACITRA/POLYMYXIN B OINT UD PACKET TP SCH ×2 (08:46→20:20)
[2020-01-04] MEDS: HYDROGEN PEROXIDE 3% 118 ML BOTTLE TP SCH ×2 (09:08→21:03)
[2020-01-04] MEDS: ACETAMINOPHEN 650 MG/20 ML UDC- SA PATIENTS-PAIN ONLY PEG SCH (17:21)
[2020-01-04 22:51] VITALS: BP 93/56
[2020-01-05] MEDS: MIDODRINE 10 MG PEG SCH ×3 (05:50→21:20)
[2020-01-05] MEDS: OMEPRAZOLE 20 MG CAPSULE.DR GT SCH (05:50)
[2020-01-05] MEDS: BISACODYL 10 MG SUPP.RECT RC PRN (06:32)
[2020-01-05 07:41] VITALS: BP 104/58
[2020-01-05] MEDS: DOCUSATE SODIUM 100 MG/10 ML LIQUID UDC GT SCH (08:31)
[2020-01-05] MEDS: TIZANIDINE HCL 4 MG TABLET PEG SCH ×2 (08:31→17:24)
[2020-01-05] MEDS: FERROUS SULFATE 330 MG/7.5 ML UDC- FOR SA ONLY GT SCH ×2 (08:31→20:08)
[2020-01-05] MEDS: PROTEIN SUPPLEMENT (PROSTAT) 30 ML LIQUID PEG SCH ×2 (08:31→20:08)
[2020-01-05] MEDS: Z GUARD REMEDY PASTE 57 GM TUBE TOP SCH ×2 (08:31→20:08)
[2020-01-05] MEDS: NEOMY/BACITRA/POLYMYXIN B OINT UD PACKET TP SCH ×2 (08:31→20:08)
[2020-01-05] MEDS: NUTRISOURCE FIBER 4 GM PACKET PEG SCH ×2 (08:31→20:08)
[2020-01-05] MEDS: HYDROGEN PEROXIDE 3% 118 ML BOTTLE TP SCH ×2 (09:00→21:00)
[2020-01-05] MEDS: ACETAMINOPHEN 650 MG/20 ML UDC- SA PATIENTS-PAIN ONLY PEG SCH (17:23)
--- NOTE | 2020-01-05 18:46 | NUR ---
NEW ORDER WAS CARRIED OUT FROM DR. LYNNE FOR COVID 19 TEST PER [facility] REQUIREMENT.PT'S MOTHER IN AGREEMENT.
[2020-01-05 20:31] VITALS: BP 86/52
[2020-01-06] MEDS: MIDODRINE 10 MG PEG SCH ×3 (05:32→21:41)
[2020-01-06] MEDS: MULTIVIT, IRON, MIN NO. 8, FA TABLET GT SCH (05:32)
[2020-01-06] MEDS: TWOCAL HN 1,000 ML LIQUID PEG PRN (05:32)
[2020-01-06] MEDS: OMEPRAZOLE 20 MG CAPSULE.DR GT SCH (05:32)
[2020-01-06 07:29] VITALS: BP 112/53
[2020-01-06] MEDS: HYDROGEN PEROXIDE 3% 118 ML BOTTLE TP SCH ×2 (09:00→21:12)
[2020-01-06] MEDS: Z GUARD REMEDY PASTE 57 GM TUBE TOP SCH ×2 (09:35→21:41)
[2020-01-06] MEDS: PROTEIN SUPPLEMENT (PROSTAT) 30 ML LIQUID PEG SCH ×2 (09:35→21:40)
[2020-01-06] MEDS: FERROUS SULFATE 330 MG/7.5 ML UDC- FOR SA ONLY GT SCH ×2 (09:35→21:39)
[2020-01-06] MEDS: DOCUSATE SODIUM 100 MG/10 ML LIQUID UDC GT SCH (09:35)
[2020-01-06] MEDS: TIZANIDINE HCL 4 MG TABLET PEG SCH ×2 (09:35→16:13)
[2020-01-06] MEDS: NUTRISOURCE FIBER 4 GM PACKET PEG SCH ×2 (09:35→21:40)
[2020-01-06] MEDS: NEOMY/BACITRA/POLYMYXIN B OINT UD PACKET TP SCH (09:35)
--- NOTE | 2020-01-06 14:12 | NUR ---
JEY notified patient's mother Morena, via email, that the next IDT meeting for the patient is scheduled for 01/13/2020 at 11am. JEY invited Morena to participate in the meeting, and asked Morena to let this SW know if she would like to participate.
[2020-01-06] MEDS: ACETAMINOPHEN 650 MG/20 ML UDC- SA PATIENTS-PAIN ONLY PEG SCH (16:13)
--- NOTE | 2020-01-06 19:14 | NUR ---
Covid19 test results negative.
[2020-01-06 20:00] VITALS: BP 124/71
--- NOTE | 2020-01-06 21:41 | NUR ---
Midodrine 10 mg held B/P 124/71
[2020-01-07] MEDS: MIDODRINE 10 MG PEG SCH ×3 (05:23→22:00)
[2020-01-07] MEDS: OMEPRAZOLE 20 MG CAPSULE.DR GT SCH (05:23)
--- NOTE | 2020-01-07 06:43 | NUR ---
Afebrile, no signs of any distress, staff cut patient nails, no bleeding noted.
[2020-01-07 07:36] VITALS: BP 111/62
[2020-01-07] MEDS: FERROUS SULFATE 330 MG/7.5 ML UDC- FOR SA ONLY GT SCH ×2 (08:02→20:08)
[2020-01-07] MEDS: NUTRISOURCE FIBER 4 GM PACKET PEG SCH ×2 (08:02→20:08)
[2020-01-07] MEDS: DOCUSATE SODIUM 100 MG/10 ML LIQUID UDC GT SCH (08:02)
[2020-01-07] MEDS: Z GUARD REMEDY PASTE 57 GM TUBE TOP SCH ×2 (08:03→20:08)
[2020-01-07] MEDS: PROTEIN SUPPLEMENT (PROSTAT) 30 ML LIQUID PEG SCH ×2 (08:03→20:08)
[2020-01-07] MEDS: TIZANIDINE HCL 4 MG TABLET PEG SCH ×2 (08:03→16:45)
[2020-01-07] MEDS: HYDROGEN PEROXIDE 3% 118 ML BOTTLE TP SCH ×2 (09:00→21:40)
--- NOTE | 2020-01-07 12:08 | NUR ---
JEY received an email from patient's mother Morena, in response to the email this JEY had sent Morena on 01/05 inviting Morena to participate in the IDT meeting on 01/12. Morena stated that she will try to be available to participate in the meeting. JEY emailed Morena and asked her to be available between 11am-12pm to receive this JEY's call.
[2020-01-07] MEDS: ACETAMINOPHEN 650 MG/20 ML UDC- SA PATIENTS-PAIN ONLY PEG SCH (16:45)
[2020-01-07 20:00] VITALS: BP 119/66
--- NOTE | 2020-01-07 22:18 | NUR ---
Midodrine held B/P 119/66
[2020-01-08] MEDS: ACETAMINOPHEN 650 MG/20 ML UDC- SA PATIENTS-PAIN ONLY PEG PRN (03:53)
[2020-01-08] MEDS: TWOCAL HN 1,000 ML LIQUID PEG PRN (03:53)
[2020-01-08] MEDS: OMEPRAZOLE 20 MG CAPSULE.DR GT SCH (05:09)
[2020-01-08] MEDS: MIDODRINE 10 MG PEG SCH ×3 (05:09→21:30)
[2020-01-08] MEDS: MULTIVIT, IRON, MIN NO. 8, FA TABLET GT SCH (06:20)
[2020-01-08 07:37] VITALS: BP 99/56
[2020-01-08] MEDS: HYDROGEN PEROXIDE 3% 118 ML BOTTLE TP SCH ×2 (07:41→21:13)
[2020-01-08] MEDS: DOCUSATE SODIUM 100 MG/10 ML LIQUID UDC GT SCH (08:52)
[2020-01-08] MEDS: Z GUARD REMEDY PASTE 57 GM TUBE TOP SCH ×2 (08:52→21:30)
[2020-01-08] MEDS: PROTEIN SUPPLEMENT (PROSTAT) 30 ML LIQUID PEG SCH ×2 (08:52→21:30)
[2020-01-08] MEDS: NUTRISOURCE FIBER 4 GM PACKET PEG SCH ×2 (08:52→21:30)
[2020-01-08] MEDS: FERROUS SULFATE 330 MG/7.5 ML UDC- FOR SA ONLY GT SCH ×2 (08:52→21:30)
[2020-01-08] MEDS: TIZANIDINE HCL 4 MG TABLET PEG SCH ×2 (08:52→16:38)
[2020-01-08 13:07] VITALS: BP 112/57
[2020-01-08] MEDS: ACETAMINOPHEN 650 MG/20 ML UDC- SA PATIENTS-PAIN ONLY PEG SCH (16:38)
[2020-01-08 20:00] VITALS: BP 103/64
[2020-01-09] MEDS: MIDODRINE 10 MG PEG SCH ×3 (05:37→21:08)
[2020-01-09] MEDS: OMEPRAZOLE 20 MG CAPSULE.DR GT SCH (05:37)
[2020-01-09] MEDS: HYDROGEN PEROXIDE 3% 118 ML BOTTLE TP SCH ×2 (07:31→21:29)
[2020-01-09 07:32] VITALS: BP 101/68
[2020-01-09] MEDS: DOCUSATE SODIUM 100 MG/10 ML LIQUID UDC GT SCH (08:25)
[2020-01-09] MEDS: PROTEIN SUPPLEMENT (PROSTAT) 30 ML LIQUID PEG SCH ×2 (08:26→21:08)
[2020-01-09] MEDS: Z GUARD REMEDY PASTE 57 GM TUBE TOP SCH ×2 (08:26→21:08)
[2020-01-09] MEDS: NUTRISOURCE FIBER 4 GM PACKET PEG SCH ×2 (08:26→21:08)
[2020-01-09] MEDS: FERROUS SULFATE 330 MG/7.5 ML UDC- FOR SA ONLY GT SCH ×2 (08:26→21:08)
[2020-01-09] MEDS: TIZANIDINE HCL 4 MG TABLET PEG SCH ×2 (08:26→16:38)
[2020-01-09 14:17] VITALS: BP 106/63
--- NOTE | 2020-01-09 16:30 | NUR ---
Video chat done with pt's mother.
[2020-01-09] MEDS: ACETAMINOPHEN 650 MG/20 ML UDC- SA PATIENTS-PAIN ONLY PEG SCH (16:38)
[2020-01-09] MEDS: TWOCAL HN 1,000 ML LIQUID PEG PRN (18:22)
[2020-01-09 20:00] VITALS: BP 119/65
[2020-01-10] MEDS: OMEPRAZOLE 20 MG CAPSULE.DR GT SCH (05:24)
[2020-01-10] MEDS: MIDODRINE 10 MG PEG SCH ×3 (05:25→21:43)
[2020-01-10] MEDS: MULTIVIT, IRON, MIN NO. 8, FA TABLET GT SCH (05:36)
[2020-01-10 07:12] VITALS: BP 128/73
[2020-01-10 07:30] VITALS: BP 136/74
[2020-01-10] MEDS: DOCUSATE SODIUM 100 MG/10 ML LIQUID UDC GT SCH (08:45)
[2020-01-10] MEDS: FERROUS SULFATE 330 MG/7.5 ML UDC- FOR SA ONLY GT SCH ×2 (08:47→20:53)
[2020-01-10] MEDS: PROTEIN SUPPLEMENT (PROSTAT) 30 ML LIQUID PEG SCH ×2 (08:48→20:52)
[2020-01-10] MEDS: NUTRISOURCE FIBER 4 GM PACKET PEG SCH ×2 (08:48→20:52)
[2020-01-10] MEDS: TIZANIDINE HCL 4 MG TABLET PEG SCH ×2 (08:48→16:49)
[2020-01-10] MEDS: Z GUARD REMEDY PASTE 57 GM TUBE TOP SCH ×2 (08:49→20:52)
[2020-01-10] MEDS: HYDROGEN PEROXIDE 3% 118 ML BOTTLE TP SCH ×2 (09:00→21:28)
[2020-01-10 14:43] VITALS: BP 105/70
--- NOTE | 2020-01-10 15:30 | NUR ---
video chat done with pt's mother.
[2020-01-10] MEDS: TRIAMCINOLONE ACET 0.1% OINT 15 GM TUBE TP PRN (16:52)
[2020-01-10] MEDS: ACETAMINOPHEN 650 MG/20 ML UDC- SA PATIENTS-PAIN ONLY PEG SCH (16:52)
[2020-01-10 20:00] VITALS: BP 117/52
[2020-01-11] MEDS: MIDODRINE 10 MG PEG SCH ×3 (05:37→21:56)
[2020-01-11] MEDS: OMEPRAZOLE 20 MG CAPSULE.DR GT SCH (05:37)
[2020-01-11 08:24] VITALS: BP 95/56
[2020-01-11] MEDS: TIZANIDINE HCL 4 MG TABLET PEG SCH ×2 (08:39→16:12)
[2020-01-11] MEDS: NUTRISOURCE FIBER 4 GM PACKET PEG SCH ×2 (08:39→21:55)
[2020-01-11] MEDS: PROTEIN SUPPLEMENT (PROSTAT) 30 ML LIQUID PEG SCH ×2 (08:39→21:55)
[2020-01-11] MEDS: FERROUS SULFATE 330 MG/7.5 ML UDC- FOR SA ONLY GT SCH ×2 (08:39→21:55)
[2020-01-11] MEDS: DOCUSATE SODIUM 100 MG/10 ML LIQUID UDC GT SCH (08:39)
[2020-01-11] MEDS: Z GUARD REMEDY PASTE 57 GM TUBE TOP SCH ×2 (08:40→21:55)
[2020-01-11] MEDS: HYDROGEN PEROXIDE 3% 118 ML BOTTLE TP SCH ×2 (10:10→21:50)
[2020-01-11] MEDS: ACETAMINOPHEN 650 MG/20 ML UDC- SA PATIENTS-PAIN ONLY PEG SCH (16:12)
[2020-01-11 20:32] VITALS: BP 104/65
[2020-01-12] MEDS: OMEPRAZOLE 20 MG CAPSULE.DR GT SCH (05:32)
[2020-01-12] MEDS: MIDODRINE 10 MG PEG SCH ×3 (05:34→21:14)
[2020-01-12] MEDS: MULTIVIT, IRON, MIN NO. 8, FA TABLET GT SCH (05:35)
[2020-01-12 07:30] VITALS: BP 95/55
[2020-01-12] MEDS: DOCUSATE SODIUM 100 MG/10 ML LIQUID UDC GT SCH (08:10)
[2020-01-12] MEDS: FERROUS SULFATE 330 MG/7.5 ML UDC- FOR SA ONLY GT SCH ×2 (08:13→21:13)
[2020-01-12] MEDS: Z GUARD REMEDY PASTE 57 GM TUBE TOP SCH ×2 (08:14→21:13)
[2020-01-12] MEDS: NUTRISOURCE FIBER 4 GM PACKET PEG SCH ×2 (08:14→21:13)
[2020-01-12] MEDS: PROTEIN SUPPLEMENT (PROSTAT) 30 ML LIQUID PEG SCH ×2 (08:14→21:13)
[2020-01-12] MEDS: TIZANIDINE HCL 4 MG TABLET PEG SCH ×2 (08:14→16:17)
[2020-01-12] MEDS: HYDROGEN PEROXIDE 3% 118 ML BOTTLE TP SCH ×2 (09:00→21:43)
[2020-01-12] MEDS: ACETAMINOPHEN 650 MG/20 ML UDC- SA PATIENTS-PAIN ONLY PEG SCH (16:17)
[2020-01-12 22:36] VITALS: BP 103/50
[2020-01-13] MEDS: MIDODRINE 10 MG PEG SCH ×3 (05:58→21:37)
[2020-01-13] MEDS: OMEPRAZOLE 20 MG CAPSULE.DR GT SCH (05:58)
[2020-01-13] MEDS: HYDROGEN PEROXIDE 3% 118 ML BOTTLE TP SCH ×2 (07:09→21:58)
[2020-01-13 07:42] VITALS: BP 103/66
[2020-01-13] MEDS: TIZANIDINE HCL 4 MG TABLET PEG SCH ×2 (08:18→16:08)
[2020-01-13] MEDS: DOCUSATE SODIUM 100 MG/10 ML LIQUID UDC GT SCH (08:18)
[2020-01-13] MEDS: PROTEIN SUPPLEMENT (PROSTAT) 30 ML LIQUID PEG SCH ×2 (08:18→21:37)
[2020-01-13] MEDS: FERROUS SULFATE 330 MG/7.5 ML UDC- FOR SA ONLY GT SCH ×2 (08:18→21:37)
[2020-01-13] MEDS: NUTRISOURCE FIBER 4 GM PACKET PEG SCH ×2 (08:18→21:37)
[2020-01-13] MEDS: Z GUARD REMEDY PASTE 57 GM TUBE TOP SCH ×2 (08:18→21:37)
[2020-01-13 14:07] VITALS: BP 94/62
--- NOTE | 2020-01-13 15:43 | NUR ---
INTERDISCIPLINARY PLAN OF CARE CONFERENCE was held today. Patient's mother Morena was called during the meeting, but she was not available participate. Dr. Caraballo and the Interdisciplinary team reviewed the current plan of care in detail. RN reported on the patient's medical condition. No major changes in condition were reported by RN or by the other disciplines. See RN IDT conference notes. See also all other disciplines IDT notes and physician's progress notes for additional details.
[2020-01-13] MEDS: ACETAMINOPHEN 650 MG/20 ML UDC- SA PATIENTS-PAIN ONLY PEG SCH (16:08)
[2020-01-13 20:59] VITALS: BP 112/64
[2020-01-14] MEDS: TWOCAL HN 1,000 ML LIQUID PEG PRN (02:06)
[2020-01-14] MEDS: MIDODRINE 10 MG PEG SCH ×3 (05:36→22:00)
[2020-01-14] MEDS: OMEPRAZOLE 20 MG CAPSULE.DR GT SCH (05:36)
[2020-01-14] MEDS: MULTIVIT, IRON, MIN NO. 8, FA TABLET GT SCH (05:36)
[2020-01-14 07:50] VITALS: BP 114/64
[2020-01-14] MEDS: HYDROGEN PEROXIDE 3% 118 ML BOTTLE TP SCH ×2 (09:00→21:12)
[2020-01-14] MEDS: PROTEIN SUPPLEMENT (PROSTAT) 30 ML LIQUID PEG SCH ×2 (09:19→21:00)
[2020-01-14] MEDS: Z GUARD REMEDY PASTE 57 GM TUBE TOP SCH ×2 (09:19→21:00)
[2020-01-14] MEDS: DOCUSATE SODIUM 100 MG/10 ML LIQUID UDC GT SCH (09:19)
[2020-01-14] MEDS: NUTRISOURCE FIBER 4 GM PACKET PEG SCH ×2 (09:19→21:00)
[2020-01-14] MEDS: FERROUS SULFATE 330 MG/7.5 ML UDC- FOR SA ONLY GT SCH ×2 (09:19→21:00)
[2020-01-14] MEDS: TIZANIDINE HCL 4 MG TABLET PEG SCH ×2 (09:19→16:41)
[2020-01-14 12:57] VITALS: BP 109/68
--- NOTE | 2020-01-14 15:25 | NUR ---
video chat done with pt's mother.
[2020-01-14] MEDS: ACETAMINOPHEN 650 MG/20 ML UDC- SA PATIENTS-PAIN ONLY PEG SCH (16:45)
[2020-01-14 20:04] VITALS: BP 115/63
[2020-01-15] MEDS: OMEPRAZOLE 20 MG CAPSULE.DR GT SCH (06:00)
[2020-01-15] MEDS: MIDODRINE 10 MG PEG SCH ×3 (06:00→21:49)
[2020-01-15 07:59] VITALS: BP 106/61
[2020-01-15] MEDS: NUTRISOURCE FIBER 4 GM PACKET PEG SCH ×2 (08:22→20:04)
[2020-01-15] MEDS: FERROUS SULFATE 330 MG/7.5 ML UDC- FOR SA ONLY GT SCH ×2 (08:22→20:04)
[2020-01-15] MEDS: Z GUARD REMEDY PASTE 57 GM TUBE TOP SCH ×2 (08:22→20:04)
[2020-01-15] MEDS: DOCUSATE SODIUM 100 MG/10 ML LIQUID UDC GT SCH (08:22)
[2020-01-15] MEDS: TIZANIDINE HCL 4 MG TABLET PEG SCH ×2 (08:22→16:10)
[2020-01-15] MEDS: PROTEIN SUPPLEMENT (PROSTAT) 30 ML LIQUID PEG SCH ×2 (08:22→20:04)
[2020-01-15] MEDS: HYDROGEN PEROXIDE 3% 118 ML BOTTLE TP SCH ×2 (09:29→21:13)
[2020-01-15 13:58] VITALS: BP 108/55
[2020-01-15] MEDS: TWOCAL HN 1,000 ML LIQUID PEG PRN (13:58)
[2020-01-15] MEDS: ACETAMINOPHEN 650 MG/20 ML UDC- SA PATIENTS-PAIN ONLY PEG SCH (16:10)
[2020-01-15 22:09] VITALS: BP 95/61
[2020-01-16] MEDS: OMEPRAZOLE 20 MG CAPSULE.DR GT SCH (06:11)
[2020-01-16] MEDS: MIDODRINE 10 MG PEG SCH ×3 (06:11→21:09)
[2020-01-16] MEDS: MULTIVIT, IRON, MIN NO. 8, FA TABLET GT SCH (06:12)
[2020-01-16] MEDS: HYDROGEN PEROXIDE 3% 118 ML BOTTLE TP SCH ×2 (07:12→21:00)
[2020-01-16] MEDS: DOCUSATE SODIUM 100 MG/10 ML LIQUID UDC GT SCH (08:43)
[2020-01-16] MEDS: Z GUARD REMEDY PASTE 57 GM TUBE TOP SCH ×2 (08:43→21:09)
[2020-01-16] MEDS: TIZANIDINE HCL 4 MG TABLET PEG SCH ×2 (08:43→17:08)
[2020-01-16] MEDS: PROTEIN SUPPLEMENT (PROSTAT) 30 ML LIQUID PEG SCH ×2 (08:43→21:09)
[2020-01-16] MEDS: FERROUS SULFATE 330 MG/7.5 ML UDC- FOR SA ONLY GT SCH ×2 (08:43→21:09)
[2020-01-16] MEDS: NUTRISOURCE FIBER 4 GM PACKET PEG SCH ×2 (08:43→21:09)
[2020-01-16 14:05] VITALS: BP 117/60
[2020-01-16] MEDS: ACETAMINOPHEN 650 MG/20 ML UDC- SA PATIENTS-PAIN ONLY PEG SCH (17:08)
[2020-01-16 22:06] VITALS: BP 102/60
[2020-01-16] MEDS: TWOCAL HN 1,000 ML LIQUID PEG PRN (22:19)
[2020-01-17] MEDS: OMEPRAZOLE 20 MG CAPSULE.DR GT SCH (05:23)
[2020-01-17 06:05] VITALS: BP 109/62
[2020-01-17] MEDS: MIDODRINE 10 MG PEG SCH ×3 (06:05→22:28)
[2020-01-17 07:33] VITALS: BP 122/62
[2020-01-17] MEDS: HYDROGEN PEROXIDE 3% 118 ML BOTTLE TP SCH ×2 (07:45→21:32)
[2020-01-17] MEDS: DOCUSATE SODIUM 100 MG/10 ML LIQUID UDC GT SCH (08:32)
[2020-01-17] MEDS: FERROUS SULFATE 330 MG/7.5 ML UDC- FOR SA ONLY GT SCH ×2 (08:32→21:00)
[2020-01-17] MEDS: NUTRISOURCE FIBER 4 GM PACKET PEG SCH ×2 (08:33→21:00)
[2020-01-17] MEDS: PROTEIN SUPPLEMENT (PROSTAT) 30 ML LIQUID PEG SCH ×2 (08:33→21:00)
[2020-01-17] MEDS: TIZANIDINE HCL 4 MG TABLET PEG SCH ×2 (08:33→17:11)
[2020-01-17] MEDS: Z GUARD REMEDY PASTE 57 GM TUBE TOP SCH ×2 (08:34→21:00)
[2020-01-17] MEDS: TRIAMCINOLONE ACET 0.1% OINT 15 GM TUBE TP PRN (10:43)
[2020-01-17] MEDS: BISACODYL 10 MG SUPP.RECT RC PRN (10:43)
[2020-01-17 14:26] VITALS: BP 108/69
[2020-01-17] MEDS: ACETAMINOPHEN 650 MG/20 ML UDC- SA PATIENTS-PAIN ONLY PEG SCH (17:11)
[2020-01-17 22:32] VITALS: BP 98/55
[2020-01-18] MEDS: TWOCAL HN 1,000 ML LIQUID PEG PRN (04:20)
[2020-01-18] MEDS: MULTIVIT, IRON, MIN NO. 8, FA TABLET GT SCH (05:47)
[2020-01-18] MEDS: MIDODRINE 10 MG PEG SCH ×3 (05:47→21:04)
[2020-01-18] MEDS: OMEPRAZOLE 20 MG CAPSULE.DR GT SCH (05:47)
[2020-01-18 07:28] VITALS: BP 111/62
[2020-01-18] MEDS: HYDROGEN PEROXIDE 3% 118 ML BOTTLE TP SCH ×2 (07:54→21:08)
[2020-01-18] MEDS: DOCUSATE SODIUM 100 MG/10 ML LIQUID UDC GT SCH (08:31)
[2020-01-18] MEDS: Z GUARD REMEDY PASTE 57 GM TUBE TOP SCH ×2 (08:34→21:04)
[2020-01-18] MEDS: FERROUS SULFATE 330 MG/7.5 ML UDC- FOR SA ONLY GT SCH ×2 (08:34→21:03)
[2020-01-18] MEDS: NUTRISOURCE FIBER 4 GM PACKET PEG SCH ×2 (08:34→21:03)
[2020-01-18] MEDS: PROTEIN SUPPLEMENT (PROSTAT) 30 ML LIQUID PEG SCH ×2 (08:34→21:03)
[2020-01-18] MEDS: TIZANIDINE HCL 4 MG TABLET PEG SCH ×2 (08:34→17:04)
--- NOTE | 2020-01-18 15:27 | NUR ---
NEW ORDER WAS CARRIED OUT FROM DR. LYNNE FOR COVID 19 TEST PER [facility] REQUIREMENT AND PT'S MOTHER NOTIFIED AND IN AGREEMENT.
[2020-01-18] MEDS: ACETAMINOPHEN 650 MG/20 ML UDC- SA PATIENTS-PAIN ONLY PEG SCH (17:04)
--- NOTE | 2020-01-18 18:13 | NUR ---
Video chat provided with pt. and family. No concerns verbalized at this time. Will continue to monitor.
[2020-01-18 22:41] VITALS: BP 92/48
[2020-01-19] MEDS: OMEPRAZOLE 20 MG CAPSULE.DR GT SCH (05:47)
[2020-01-19] MEDS: MIDODRINE 10 MG PEG SCH ×3 (05:47→22:13)
[2020-01-19 07:01] VITALS: BP 105/51
[2020-01-19 08:00] VITALS: BP 115/64
[2020-01-19] MEDS: PROTEIN SUPPLEMENT (PROSTAT) 30 ML LIQUID PEG SCH ×2 (08:58→20:36)
[2020-01-19] MEDS: DOCUSATE SODIUM 100 MG/10 ML LIQUID UDC GT SCH (08:58)
[2020-01-19] MEDS: NUTRISOURCE FIBER 4 GM PACKET PEG SCH ×2 (08:58→20:36)
[2020-01-19] MEDS: TIZANIDINE HCL 4 MG TABLET PEG SCH ×2 (08:58→17:32)
[2020-01-19] MEDS: Z GUARD REMEDY PASTE 57 GM TUBE TOP SCH ×2 (08:58→20:36)
[2020-01-19] MEDS: FERROUS SULFATE 330 MG/7.5 ML UDC- FOR SA ONLY GT SCH ×2 (08:58→20:36)
[2020-01-19] MEDS: HYDROGEN PEROXIDE 3% 118 ML BOTTLE TP SCH ×2 (09:42→21:54)
--- NOTE | 2020-01-19 15:58 | NUR ---
PT'S MOTHER WAS NOTIFIED RE:NEGATIVE RESULT FOR COVID 19 TEST.
[2020-01-19] MEDS: ACETAMINOPHEN 650 MG/20 ML UDC- SA PATIENTS-PAIN ONLY PEG SCH (17:32)
--- NOTE | 2020-01-19 18:44 | NUR ---
Video chat provided with the pt. and family(mother). No concerns verbalized by the family.
[2020-01-19 22:26] VITALS: BP 95/51
[2020-01-20] MEDS: OMEPRAZOLE 20 MG CAPSULE.DR GT SCH (05:32)
[2020-01-20] MEDS: MIDODRINE 10 MG PEG SCH ×3 (05:32→21:56)
[2020-01-20] MEDS: MULTIVIT, IRON, MIN NO. 8, FA TABLET GT SCH (05:32)
[2020-01-20 07:00] VITALS: BP 106/62
[2020-01-20 07:37] VITALS: BP 126/59
[2020-01-20] MEDS: NUTRISOURCE FIBER 4 GM PACKET PEG SCH ×2 (08:48→21:56)
[2020-01-20] MEDS: PROTEIN SUPPLEMENT (PROSTAT) 30 ML LIQUID PEG SCH ×2 (08:48→21:56)
[2020-01-20] MEDS: TIZANIDINE HCL 4 MG TABLET PEG SCH ×2 (08:48→17:51)
[2020-01-20] MEDS: FERROUS SULFATE 330 MG/7.5 ML UDC- FOR SA ONLY GT SCH ×2 (08:48→21:56)
[2020-01-20] MEDS: Z GUARD REMEDY PASTE 57 GM TUBE TOP SCH ×2 (08:48→21:56)
[2020-01-20] MEDS: DOCUSATE SODIUM 100 MG/10 ML LIQUID UDC GT SCH (08:48)
[2020-01-20] MEDS: HYDROGEN PEROXIDE 3% 118 ML BOTTLE TP SCH ×2 (09:49→21:29)
[2020-01-20] MEDS: ACETAMINOPHEN 650 MG/20 ML UDC- SA PATIENTS-PAIN ONLY PEG SCH (17:51)
[2020-01-20] MEDS: TWOCAL HN 1,000 ML LIQUID PEG PRN (17:58)
[2020-01-20 20:05] VITALS: BP 89/48
[2020-01-21 03:36] VITALS: BP 120/58
[2020-01-21] MEDS: OMEPRAZOLE 20 MG CAPSULE.DR GT SCH (05:39)
[2020-01-21] MEDS: MIDODRINE 10 MG PEG SCH ×3 (05:39→21:52)
[2020-01-21 07:27] VITALS: BP 119/68
[2020-01-21] MEDS: HYDROGEN PEROXIDE 3% 118 ML BOTTLE TP SCH ×2 (08:10→20:36)
[2020-01-21] MEDS: FERROUS SULFATE 330 MG/7.5 ML UDC- FOR SA ONLY GT SCH ×2 (09:17→21:52)
[2020-01-21] MEDS: DOCUSATE SODIUM 100 MG/10 ML LIQUID UDC GT SCH (09:17)
[2020-01-21] MEDS: NUTRISOURCE FIBER 4 GM PACKET PEG SCH ×2 (09:18→21:52)
[2020-01-21] MEDS: PROTEIN SUPPLEMENT (PROSTAT) 30 ML LIQUID PEG SCH ×2 (09:18→21:52)
[2020-01-21] MEDS: TIZANIDINE HCL 4 MG TABLET PEG SCH ×2 (09:18→17:00)
[2020-01-21] MEDS: Z GUARD REMEDY PASTE 57 GM TUBE TOP SCH ×2 (09:20→21:52)
[2020-01-21 15:16] VITALS: BP 109/68
[2020-01-21] MEDS: ACETAMINOPHEN 650 MG/20 ML UDC- SA PATIENTS-PAIN ONLY PEG SCH (17:00)
[2020-01-21 20:00] VITALS: BP 121/70
[2020-01-22] MEDS: MIDODRINE 10 MG PEG SCH ×3 (05:26→21:41)
[2020-01-22] MEDS: OMEPRAZOLE 20 MG CAPSULE.DR GT SCH (05:26)
[2020-01-22] MEDS: MULTIVIT, IRON, MIN NO. 8, FA TABLET GT SCH (05:33)
[2020-01-22 07:33] VITALS: BP 90/58
[2020-01-22] MEDS: DOCUSATE SODIUM 100 MG/10 ML LIQUID UDC GT SCH (08:29)
[2020-01-22] MEDS: FERROUS SULFATE 330 MG/7.5 ML UDC- FOR SA ONLY GT SCH ×2 (08:29→21:41)
[2020-01-22] MEDS: NUTRISOURCE FIBER 4 GM PACKET PEG SCH ×2 (08:30→21:41)
[2020-01-22] MEDS: PROTEIN SUPPLEMENT (PROSTAT) 30 ML LIQUID PEG SCH ×2 (08:30→21:41)
[2020-01-22] MEDS: Z GUARD REMEDY PASTE 57 GM TUBE TOP SCH ×2 (08:31→21:41)
[2020-01-22] MEDS: TIZANIDINE HCL 4 MG TABLET PEG SCH ×2 (08:31→17:08)
[2020-01-22] MEDS: HYDROGEN PEROXIDE 3% 118 ML BOTTLE TP SCH ×2 (09:00→21:17)
[2020-01-22 13:19] VITALS: BP 113/64
[2020-01-22] MEDS: ACETAMINOPHEN 650 MG/20 ML UDC- SA PATIENTS-PAIN ONLY PEG SCH (17:08)
[2020-01-22 20:00] VITALS: BP 110/69
[2020-01-23 05:49] VITALS: BP 102/62
[2020-01-23] MEDS: OMEPRAZOLE 20 MG CAPSULE.DR GT SCH (05:49)
[2020-01-23] MEDS: MIDODRINE 10 MG PEG SCH ×3 (05:49→21:08)
[2020-01-23 07:41] VITALS: BP 102/55
[2020-01-23] MEDS: HYDROGEN PEROXIDE 3% 118 ML BOTTLE TP SCH ×2 (08:19→21:26)
[2020-01-23] MEDS: FERROUS SULFATE 330 MG/7.5 ML UDC- FOR SA ONLY GT SCH ×2 (08:23→20:09)
[2020-01-23] MEDS: DOCUSATE SODIUM 100 MG/10 ML LIQUID UDC GT SCH (08:23)
[2020-01-23] MEDS: NUTRISOURCE FIBER 4 GM PACKET PEG SCH ×2 (08:23→20:09)
[2020-01-23] MEDS: TIZANIDINE HCL 4 MG TABLET PEG SCH ×2 (08:23→16:22)
[2020-01-23] MEDS: Z GUARD REMEDY PASTE 57 GM TUBE TOP SCH ×2 (08:23→20:09)
[2020-01-23] MEDS: PROTEIN SUPPLEMENT (PROSTAT) 30 ML LIQUID PEG SCH ×2 (08:23→20:09)
[2020-01-23 13:23] VITALS: BP 116/63
[2020-01-23] MEDS: ACETAMINOPHEN 650 MG/20 ML UDC- SA PATIENTS-PAIN ONLY PEG SCH (16:22)
[2020-01-23 20:31] VITALS: BP 104/49
[2020-01-23] MEDS: TWOCAL HN 1,000 ML LIQUID PEG PRN (22:40)
[2020-01-24] MEDS: OMEPRAZOLE 20 MG CAPSULE.DR GT SCH (05:48)
[2020-01-24] MEDS: MIDODRINE 10 MG PEG SCH ×3 (05:48→21:05)
[2020-01-24] MEDS: MULTIVIT, IRON, MIN NO. 8, FA TABLET GT SCH (05:48)
[2020-01-24 07:45] VITALS: BP 111/68
[2020-01-24] MEDS: DOCUSATE SODIUM 100 MG/10 ML LIQUID UDC GT SCH (08:40)
[2020-01-24] MEDS: PROTEIN SUPPLEMENT (PROSTAT) 30 ML LIQUID PEG SCH ×2 (08:40→20:16)
[2020-01-24] MEDS: FERROUS SULFATE 330 MG/7.5 ML UDC- FOR SA ONLY GT SCH ×2 (08:40→20:16)
[2020-01-24] MEDS: NUTRISOURCE FIBER 4 GM PACKET PEG SCH ×2 (08:40→20:16)
[2020-01-24] MEDS: TIZANIDINE HCL 4 MG TABLET PEG SCH ×2 (08:40→16:37)
[2020-01-24] MEDS: Z GUARD REMEDY PASTE 57 GM TUBE TOP SCH ×2 (08:41→20:16)
[2020-01-24] MEDS: HYDROGEN PEROXIDE 3% 118 ML BOTTLE TP SCH ×2 (09:14→21:18)
[2020-01-24 13:05] VITALS: BP 106/69
[2020-01-24] MEDS: ACETAMINOPHEN 650 MG/20 ML UDC- SA PATIENTS-PAIN ONLY PEG SCH (16:37)
[2020-01-24 20:51] VITALS: BP 99/57
[2020-01-25] MEDS: MIDODRINE 10 MG PEG SCH ×3 (05:53→21:13)
[2020-01-25] MEDS: OMEPRAZOLE 20 MG CAPSULE.DR GT SCH (05:53)
[2020-01-25 07:56] VITALS: BP 117/61
[2020-01-25] MEDS: DOCUSATE SODIUM 100 MG/10 ML LIQUID UDC GT SCH (08:43)
[2020-01-25] MEDS: FERROUS SULFATE 330 MG/7.5 ML UDC- FOR SA ONLY GT SCH ×2 (08:43→20:08)
[2020-01-25] MEDS: PROTEIN SUPPLEMENT (PROSTAT) 30 ML LIQUID PEG SCH ×2 (08:44→20:08)
[2020-01-25] MEDS: TIZANIDINE HCL 4 MG TABLET PEG SCH ×2 (08:44→17:48)
[2020-01-25] MEDS: NUTRISOURCE FIBER 4 GM PACKET PEG SCH ×2 (08:44→20:08)
[2020-01-25] MEDS: Z GUARD REMEDY PASTE 57 GM TUBE TOP SCH ×2 (08:45→20:08)
[2020-01-25] MEDS: HYDROGEN PEROXIDE 3% 118 ML BOTTLE TP SCH ×2 (09:40→19:22)
[2020-01-25 13:42] VITALS: BP 98/56
--- NOTE | 2020-01-25 15:34 | NUR ---
Video chat provided with pts mother, Morena.
[2020-01-25] MEDS: ACETAMINOPHEN 650 MG/20 ML UDC- SA PATIENTS-PAIN ONLY PEG SCH (17:48)
[2020-01-25 18:30] VITALS: BP 88/55
--- NOTE | 2020-01-25 18:41 | NUR ---
Covid 19 test done today.per [facility] requirement.Responsible [employer] party notified.
[2020-01-25 19:25] VITALS: BP 88/55
[2020-01-26] MEDS: MIDODRINE 10 MG PEG SCH ×3 (05:55→22:00)
[2020-01-26] MEDS: MULTIVIT, IRON, MIN NO. 8, FA TABLET GT SCH (05:55)
[2020-01-26] MEDS: OMEPRAZOLE 20 MG CAPSULE.DR GT SCH (05:55)
[2020-01-26] MEDS: HYDROGEN PEROXIDE 3% 118 ML BOTTLE TP SCH ×2 (07:08→21:08)
[2020-01-26 07:39] VITALS: BP 120/69
[2020-01-26] MEDS: DOCUSATE SODIUM 100 MG/10 ML LIQUID UDC GT SCH (08:11)
[2020-01-26] MEDS: NUTRISOURCE FIBER 4 GM PACKET PEG SCH ×2 (08:12→20:23)
[2020-01-26] MEDS: PROTEIN SUPPLEMENT (PROSTAT) 30 ML LIQUID PEG SCH ×2 (08:12→20:23)
[2020-01-26] MEDS: TIZANIDINE HCL 4 MG TABLET PEG SCH ×2 (08:12→16:17)
[2020-01-26] MEDS: FERROUS SULFATE 330 MG/7.5 ML UDC- FOR SA ONLY GT SCH ×2 (08:12→20:23)
[2020-01-26] MEDS: Z GUARD REMEDY PASTE 57 GM TUBE TOP SCH ×2 (08:13→20:24)
[2020-01-26] MEDS: ACETAMINOPHEN 650 MG/20 ML UDC- SA PATIENTS-PAIN ONLY PEG SCH (16:17)
[2020-01-26 20:24] VITALS: BP 115/66
[2020-01-27] MEDS: OMEPRAZOLE 20 MG CAPSULE.DR GT SCH (05:26)
[2020-01-27] MEDS: MIDODRINE 10 MG PEG SCH ×3 (05:26→21:57)
[2020-01-27 07:44] VITALS: BP 101/62
--- NOTE | 2020-01-27 08:40 | NUR ---
SHIFT REPORT Recv'd report from night nurse. Pt. in stable condition with b/l arms wrapped around pillows. G-Tube intact and patent with no s/s of infection and feeding running at 25mL/hr. Bed low, bed alarm on, and call spencer within reach.
[2020-01-27] MEDS: TIZANIDINE HCL 4 MG TABLET PEG SCH ×2 (09:00→16:29)
[2020-01-27] MEDS: FERROUS SULFATE 330 MG/7.5 ML UDC- FOR SA ONLY GT SCH ×2 (09:00→21:57)
[2020-01-27] MEDS: DOCUSATE SODIUM 100 MG/10 ML LIQUID UDC GT SCH (09:00)
[2020-01-27] MEDS: NUTRISOURCE FIBER 4 GM PACKET PEG SCH ×2 (09:00→21:57)
[2020-01-27] MEDS: PROTEIN SUPPLEMENT (PROSTAT) 30 ML LIQUID PEG SCH ×2 (09:00→21:57)
[2020-01-27] MEDS: Z GUARD REMEDY PASTE 57 GM TUBE TOP SCH ×2 (09:00→21:57)
[2020-01-27] MEDS: HYDROGEN PEROXIDE 3% 118 ML BOTTLE TP SCH ×2 (09:00→21:00)
[2020-01-27] MEDS: ACETAMINOPHEN 650 MG/20 ML UDC- SA PATIENTS-PAIN ONLY PEG SCH (16:27)
--- NOTE | 2020-01-27 19:40 | NUR ---
END OF SHIFT REPORT Report given to Sirisha. Endorsed pt. in stable condition. No change in pt. status.
[2020-01-27 20:00] VITALS: BP 103/65
[2020-01-27] MEDS: TWOCAL HN 1,000 ML LIQUID PEG PRN (23:30)
[2020-01-28] MEDS: OMEPRAZOLE 20 MG CAPSULE.DR GT SCH (06:08)
[2020-01-28] MEDS: MULTIVIT, IRON, MIN NO. 8, FA TABLET GT SCH (06:09)
[2020-01-28] MEDS: MIDODRINE 10 MG PEG SCH ×3 (06:09→22:12)
[2020-01-28 07:46] VITALS: BP 105/65
[2020-01-28] MEDS: FERROUS SULFATE 330 MG/7.5 ML UDC- FOR SA ONLY GT SCH ×2 (09:34→21:00)
[2020-01-28] MEDS: TIZANIDINE HCL 4 MG TABLET PEG SCH ×2 (09:34→17:05)
[2020-01-28] MEDS: PROTEIN SUPPLEMENT (PROSTAT) 30 ML LIQUID PEG SCH ×2 (09:34→21:00)
[2020-01-28] MEDS: NUTRISOURCE FIBER 4 GM PACKET PEG SCH ×2 (09:34→21:00)
[2020-01-28] MEDS: DOCUSATE SODIUM 100 MG/10 ML LIQUID UDC GT SCH (09:34)
[2020-01-28] MEDS: Z GUARD REMEDY PASTE 57 GM TUBE TOP SCH ×2 (09:34→21:00)
[2020-01-28] MEDS: HYDROGEN PEROXIDE 3% 118 ML BOTTLE TP SCH ×2 (09:50→21:47)
--- NOTE | 2020-01-28 14:00 | NUR ---
nabil nelson, mother notified covid 19 is negative.
[2020-01-28] MEDS: ACETAMINOPHEN 650 MG/20 ML UDC- SA PATIENTS-PAIN ONLY PEG SCH (17:05)
[2020-01-28 22:51] VITALS: BP 107/51
[2020-01-29] MEDS: MIDODRINE 10 MG PEG SCH ×3 (05:53→21:47)
[2020-01-29] MEDS: OMEPRAZOLE 20 MG CAPSULE.DR GT SCH (05:53)
[2020-01-29 08:02] VITALS: BP 108/66
[2020-01-29] MEDS: PROTEIN SUPPLEMENT (PROSTAT) 30 ML LIQUID PEG SCH ×2 (09:32→21:46)
[2020-01-29] MEDS: TIZANIDINE HCL 4 MG TABLET PEG SCH ×2 (09:32→17:06)
[2020-01-29] MEDS: NUTRISOURCE FIBER 4 GM PACKET PEG SCH ×2 (09:32→21:46)
[2020-01-29] MEDS: DOCUSATE SODIUM 100 MG/10 ML LIQUID UDC GT SCH (09:32)
[2020-01-29] MEDS: Z GUARD REMEDY PASTE 57 GM TUBE TOP SCH ×2 (09:32→21:46)
[2020-01-29] MEDS: FERROUS SULFATE 330 MG/7.5 ML UDC- FOR SA ONLY GT SCH ×2 (09:32→21:46)
[2020-01-29] MEDS: HYDROGEN PEROXIDE 3% 118 ML BOTTLE TP SCH ×2 (09:59→21:37)
[2020-01-29] MEDS: ACETAMINOPHEN 650 MG/20 ML UDC- SA PATIENTS-PAIN ONLY PEG SCH (17:06)
[2020-01-29 22:40] VITALS: BP 108/75
[2020-01-30] MEDS: MIDODRINE 10 MG PEG SCH ×3 (05:39→21:30)
[2020-01-30] MEDS: OMEPRAZOLE 20 MG CAPSULE.DR GT SCH (05:39)
[2020-01-30] MEDS: MULTIVIT, IRON, MIN NO. 8, FA TABLET GT SCH (05:39)
[2020-01-30 07:37] VITALS: BP 98/74
[2020-01-30] MEDS: FERROUS SULFATE 330 MG/7.5 ML UDC- FOR SA ONLY GT SCH ×2 (08:16→21:29)
[2020-01-30] MEDS: DOCUSATE SODIUM 100 MG/10 ML LIQUID UDC GT SCH (08:16)
[2020-01-30] MEDS: NUTRISOURCE FIBER 4 GM PACKET PEG SCH ×2 (08:18→21:29)
[2020-01-30] MEDS: TIZANIDINE HCL 4 MG TABLET PEG SCH ×2 (08:19→17:09)
[2020-01-30] MEDS: Z GUARD REMEDY PASTE 57 GM TUBE TOP SCH ×2 (08:19→21:29)
[2020-01-30] MEDS: PROTEIN SUPPLEMENT (PROSTAT) 30 ML LIQUID PEG SCH ×2 (08:19→21:29)
[2020-01-30] MEDS: HYDROGEN PEROXIDE 3% 118 ML BOTTLE TP SCH ×2 (08:41→21:20)
--- NOTE | 2020-01-30 12:00 | NUR ---
SEEN BY DR. LYNNE AND WITH NNO.
[2020-01-30 14:28] VITALS: BP 102/56
[2020-01-30] MEDS: ACETAMINOPHEN 650 MG/20 ML UDC- SA PATIENTS-PAIN ONLY PEG SCH (17:12)
[2020-01-30 22:23] VITALS: BP 94/48
[2020-01-31 05:01] VITALS: BP 96/50
[2020-01-31] MEDS: OMEPRAZOLE 20 MG CAPSULE.DR GT SCH (05:02)
[2020-01-31] MEDS: MIDODRINE 10 MG PEG SCH ×3 (05:02→21:16)
[2020-01-31 07:41] VITALS: BP 97/65
[2020-01-31] MEDS: HYDROGEN PEROXIDE 3% 118 ML BOTTLE TP SCH ×2 (07:50→21:39)
[2020-01-31] MEDS: Z GUARD REMEDY PASTE 57 GM TUBE TOP SCH ×2 (09:00→21:16)
[2020-01-31] MEDS: DOCUSATE SODIUM 100 MG/10 ML LIQUID UDC GT SCH (09:59)
[2020-01-31] MEDS: FERROUS SULFATE 330 MG/7.5 ML UDC- FOR SA ONLY GT SCH ×2 (09:59→21:16)
[2020-01-31] MEDS: NUTRISOURCE FIBER 4 GM PACKET PEG SCH ×2 (09:59→21:16)
[2020-01-31] MEDS: PROTEIN SUPPLEMENT (PROSTAT) 30 ML LIQUID PEG SCH ×2 (09:59→21:16)
[2020-01-31] MEDS: TIZANIDINE HCL 4 MG TABLET PEG SCH ×2 (09:59→17:31)
[2020-01-31] MEDS: ACETAMINOPHEN 650 MG/20 ML UDC- SA PATIENTS-PAIN ONLY PEG SCH (17:31)
[2020-01-31 23:02] VITALS: BP 104/55
[2020-02-01] MEDS: MIDODRINE 10 MG PEG SCH ×3 (06:00→22:27)
[2020-02-01] MEDS: MULTIVIT, IRON, MIN NO. 8, FA TABLET GT SCH (06:12)
[2020-02-01] MEDS: OMEPRAZOLE 20 MG CAPSULE.DR GT SCH (06:12)
[2020-02-01 06:13] VITALS: BP 111/65
[2020-02-01 07:39] VITALS: BP 100/60
[2020-02-01] MEDS: HYDROGEN PEROXIDE 3% 118 ML BOTTLE TP SCH ×2 (07:45→20:21)
[2020-02-01] MEDS: DOCUSATE SODIUM 100 MG/10 ML LIQUID UDC GT SCH (09:07)
[2020-02-01] MEDS: FERROUS SULFATE 330 MG/7.5 ML UDC- FOR SA ONLY GT SCH ×2 (09:08→20:21)
[2020-02-01] MEDS: NUTRISOURCE FIBER 4 GM PACKET PEG SCH ×2 (09:09→20:21)
[2020-02-01] MEDS: PROTEIN SUPPLEMENT (PROSTAT) 30 ML LIQUID PEG SCH ×2 (09:09→20:21)
[2020-02-01] MEDS: Z GUARD REMEDY PASTE 57 GM TUBE TOP SCH ×2 (09:13→20:21)
[2020-02-01] MEDS: TIZANIDINE HCL 4 MG TABLET PEG SCH ×2 (09:13→17:45)
[2020-02-01] MEDS: ACETAMINOPHEN 650 MG/20 ML UDC- SA PATIENTS-PAIN ONLY PEG SCH (17:45)
[2020-02-01 19:56] VITALS: BP 90/49
[2020-02-02] MEDS: OMEPRAZOLE 20 MG CAPSULE.DR GT SCH (05:35)
[2020-02-02 05:38] VITALS: BP 113/53
[2020-02-02] MEDS: MIDODRINE 10 MG PEG SCH ×3 (05:38→21:22)
--- NOTE | 2020-02-02 07:13 | NUR ---
Will test patient for COVID-19 today.
[2020-02-02] MEDS: HYDROGEN PEROXIDE 3% 118 ML BOTTLE TP SCH ×2 (07:18→21:52)
[2020-02-02 07:31] VITALS: BP 112/60
[2020-02-02] MEDS: Z GUARD REMEDY PASTE 57 GM TUBE TOP SCH ×2 (09:23→21:22)
[2020-02-02] MEDS: DOCUSATE SODIUM 100 MG/10 ML LIQUID UDC GT SCH (09:23)
[2020-02-02] MEDS: TIZANIDINE HCL 4 MG TABLET PEG SCH ×2 (09:23→16:29)
[2020-02-02] MEDS: NUTRISOURCE FIBER 4 GM PACKET PEG SCH ×2 (09:23→21:22)
[2020-02-02] MEDS: PROTEIN SUPPLEMENT (PROSTAT) 30 ML LIQUID PEG SCH ×2 (09:23→21:22)
[2020-02-02] MEDS: FERROUS SULFATE 330 MG/7.5 ML UDC- FOR SA ONLY GT SCH ×2 (09:23→21:22)
--- NOTE | 2020-02-02 15:37 | NUR ---
PT. WAS SEEN NAD EXAMINED BY DR. LYNNE AND WITH NNO.
--- NOTE | 2020-02-02 16:15 | NUR ---
Provided video chat to pt and her mother with no problem noted. Pt remains comfortable, all needs attended and anticipated.
[2020-02-02] MEDS: ACETAMINOPHEN 650 MG/20 ML UDC- SA PATIENTS-PAIN ONLY PEG SCH (16:29)
--- NOTE | 2020-02-02 17:34 | NUR ---
NO COVID 19 TEST REQUIRED TODAY PER [facility] TODAY AND PT'S MOTHER AWARE.
[2020-02-02 19:51] VITALS: BP 97/55
[2020-02-03] MEDS: MIDODRINE 10 MG PEG SCH ×3 (06:07→21:17)
[2020-02-03] MEDS: OMEPRAZOLE 20 MG CAPSULE.DR GT SCH (06:07)
[2020-02-03] MEDS: MULTIVIT, IRON, MIN NO. 8, FA TABLET GT SCH (06:07)
[2020-02-03 07:30] VITALS: BP 114/60
[2020-02-03 08:00] VITALS: BP 114/60
[2020-02-03] MEDS: FERROUS SULFATE 330 MG/7.5 ML UDC- FOR SA ONLY GT SCH ×2 (08:41→21:17)
[2020-02-03] MEDS: DOCUSATE SODIUM 100 MG/10 ML LIQUID UDC GT SCH (08:41)
[2020-02-03] MEDS: NUTRISOURCE FIBER 4 GM PACKET PEG SCH ×2 (08:42→21:17)
[2020-02-03] MEDS: PROTEIN SUPPLEMENT (PROSTAT) 30 ML LIQUID PEG SCH ×2 (08:59→21:17)
[2020-02-03] MEDS: TIZANIDINE HCL 4 MG TABLET PEG SCH ×2 (08:59→17:58)
[2020-02-03] MEDS: HYDROGEN PEROXIDE 3% 118 ML BOTTLE TP SCH ×2 (09:24→21:07)
[2020-02-03] MEDS: Z GUARD REMEDY PASTE 57 GM TUBE TOP SCH ×2 (09:51→21:17)
--- NOTE | 2020-02-03 14:07 | NUR ---
INTERDISCIPLINARY PLAN OF CARE CONFERENCE was held today. Patient's mother was not available to participate in the meeting. Dr. Caraballo and the Interdisciplinary team reviewed the current plan of care in detail. RN reported on the patient's medical condition. No major changes in patient's condition were reported by RN or by the other disciplines. See RN IDT conference notes. See also all other disciplines IDT notes and physician's progress notes for additional details.
[2020-02-03] MEDS: ACETAMINOPHEN 650 MG/20 ML UDC- SA PATIENTS-PAIN ONLY PEG SCH (17:58)
[2020-02-03 20:00] VITALS: BP 87/46
[2020-02-04] MEDS: TWOCAL HN 1,000 ML LIQUID PEG PRN (01:31)
[2020-02-04] MEDS: OMEPRAZOLE 20 MG CAPSULE.DR GT SCH (05:51)
[2020-02-04] MEDS: MIDODRINE 10 MG PEG SCH ×3 (05:52→21:11)
[2020-02-04 07:19] VITALS: BP 109/55
[2020-02-04] MEDS: HYDROGEN PEROXIDE 3% 118 ML BOTTLE TP SCH ×2 (08:04→21:20)
[2020-02-04] MEDS: FERROUS SULFATE 330 MG/7.5 ML UDC- FOR SA ONLY GT SCH ×2 (09:05→20:12)
[2020-02-04] MEDS: PROTEIN SUPPLEMENT (PROSTAT) 30 ML LIQUID PEG SCH ×2 (09:05→20:12)
[2020-02-04] MEDS: NUTRISOURCE FIBER 4 GM PACKET PEG SCH ×2 (09:05→20:12)
[2020-02-04] MEDS: DOCUSATE SODIUM 100 MG/10 ML LIQUID UDC GT SCH (09:05)
[2020-02-04] MEDS: Z GUARD REMEDY PASTE 57 GM TUBE TOP SCH ×2 (09:06→20:12)
[2020-02-04] MEDS: TIZANIDINE HCL 4 MG TABLET PEG SCH ×2 (09:06→17:40)
[2020-02-04] MEDS: ACETAMINOPHEN 650 MG/20 ML UDC- SA PATIENTS-PAIN ONLY PEG SCH (17:40)
[2020-02-04 20:02] VITALS: BP 121/56
[2020-02-05] MEDS: TWOCAL HN 1,000 ML LIQUID PEG PRN (02:12)
[2020-02-05] MEDS: MIDODRINE 10 MG PEG SCH ×3 (05:19→21:49)
[2020-02-05] MEDS: OMEPRAZOLE 20 MG CAPSULE.DR GT SCH (05:19)
[2020-02-05] MEDS: MULTIVIT, IRON, MIN NO. 8, FA TABLET GT SCH (05:56)
[2020-02-05 07:48] VITALS: BP 113/61
[2020-02-05] MEDS: DOCUSATE SODIUM 100 MG/10 ML LIQUID UDC GT SCH (08:46)
[2020-02-05] MEDS: NUTRISOURCE FIBER 4 GM PACKET PEG SCH ×2 (08:46→21:49)
[2020-02-05] MEDS: FERROUS SULFATE 330 MG/7.5 ML UDC- FOR SA ONLY GT SCH ×2 (08:46→21:49)
[2020-02-05] MEDS: TIZANIDINE HCL 4 MG TABLET PEG SCH ×2 (08:48→17:37)
[2020-02-05] MEDS: PROTEIN SUPPLEMENT (PROSTAT) 30 ML LIQUID PEG SCH ×2 (08:48→21:49)
[2020-02-05] MEDS: Z GUARD REMEDY PASTE 57 GM TUBE TOP SCH ×2 (08:49→21:49)
[2020-02-05] MEDS: HYDROGEN PEROXIDE 3% 118 ML BOTTLE TP SCH ×2 (09:22→21:53)
[2020-02-05] MEDS: ACETAMINOPHEN 650 MG/20 ML UDC- SA PATIENTS-PAIN ONLY PEG SCH (17:37)
[2020-02-05 20:00] VITALS: BP 116/69
[2020-02-06 05:25] VITALS: BP 110/58
[2020-02-06] MEDS: MIDODRINE 10 MG PEG SCH ×3 (05:25→21:38)
[2020-02-06] MEDS: OMEPRAZOLE 20 MG CAPSULE.DR GT SCH (05:25)
[2020-02-06 07:52] VITALS: BP 107/62
[2020-02-06] MEDS: FERROUS SULFATE 330 MG/7.5 ML UDC- FOR SA ONLY GT SCH ×2 (08:27→21:38)
[2020-02-06] MEDS: DOCUSATE SODIUM 100 MG/10 ML LIQUID UDC GT SCH (08:27)
[2020-02-06] MEDS: Z GUARD REMEDY PASTE 57 GM TUBE TOP SCH ×2 (08:28→21:38)
[2020-02-06] MEDS: NUTRISOURCE FIBER 4 GM PACKET PEG SCH ×2 (08:28→21:38)
[2020-02-06] MEDS: PROTEIN SUPPLEMENT (PROSTAT) 30 ML LIQUID PEG SCH ×2 (08:28→21:38)
[2020-02-06] MEDS: TIZANIDINE HCL 4 MG TABLET PEG SCH ×2 (08:28→16:50)
[2020-02-06] MEDS: HYDROGEN PEROXIDE 3% 118 ML BOTTLE TP SCH ×2 (09:02→21:45)
[2020-02-06 13:26] VITALS: BP 103/65
--- NOTE | 2020-02-06 16:07 | NUR ---
Video chat provided with pt's mother.
[2020-02-06] MEDS: ACETAMINOPHEN 650 MG/20 ML UDC- SA PATIENTS-PAIN ONLY PEG SCH (16:50)
[2020-02-06 20:00] VITALS: BP 106/60
[2020-02-07 05:33] VITALS: BP 98/55
[2020-02-07] MEDS: MULTIVIT, IRON, MIN NO. 8, FA TABLET GT SCH (05:33)
[2020-02-07] MEDS: MIDODRINE 10 MG PEG SCH ×3 (05:33→21:45)
[2020-02-07] MEDS: OMEPRAZOLE 20 MG CAPSULE.DR GT SCH (05:33)
[2020-02-07 07:30] VITALS: BP 97/59
[2020-02-07] MEDS: HYDROGEN PEROXIDE 3% 118 ML BOTTLE TP SCH ×2 (09:05→21:38)
[2020-02-07] MEDS: DOCUSATE SODIUM 100 MG/10 ML LIQUID UDC GT SCH (09:13)
[2020-02-07] MEDS: FERROUS SULFATE 330 MG/7.5 ML UDC- FOR SA ONLY GT SCH ×2 (09:13→21:44)
[2020-02-07] MEDS: NUTRISOURCE FIBER 4 GM PACKET PEG SCH ×2 (09:14→21:44)
[2020-02-07] MEDS: PROTEIN SUPPLEMENT (PROSTAT) 30 ML LIQUID PEG SCH ×2 (09:14→21:45)
[2020-02-07] MEDS: Z GUARD REMEDY PASTE 57 GM TUBE TOP SCH ×2 (09:15→21:45)
[2020-02-07] MEDS: TIZANIDINE HCL 4 MG TABLET PEG SCH ×2 (09:15→17:12)
[2020-02-07 14:18] VITALS: BP 107/62
[2020-02-07] MEDS: ACETAMINOPHEN 650 MG/20 ML UDC- SA PATIENTS-PAIN ONLY PEG SCH (17:12)
[2020-02-07 20:00] VITALS: BP 108/58
[2020-02-08] MEDS: TWOCAL HN 1,000 ML LIQUID PEG PRN (05:00)
[2020-02-08] MEDS: OMEPRAZOLE 20 MG CAPSULE.DR GT SCH (05:08)
[2020-02-08 05:09] VITALS: BP 100/56
[2020-02-08] MEDS: MIDODRINE 10 MG PEG SCH ×3 (05:09→21:06)
[2020-02-08 07:48] VITALS: BP 93/46
[2020-02-08] MEDS: FERROUS SULFATE 330 MG/7.5 ML UDC- FOR SA ONLY GT SCH ×2 (09:17→21:06)
[2020-02-08] MEDS: NUTRISOURCE FIBER 4 GM PACKET PEG SCH ×2 (09:17→21:06)
[2020-02-08] MEDS: PROTEIN SUPPLEMENT (PROSTAT) 30 ML LIQUID PEG SCH ×2 (09:17→21:06)
[2020-02-08] MEDS: DOCUSATE SODIUM 100 MG/10 ML LIQUID UDC GT SCH (09:17)
[2020-02-08] MEDS: TIZANIDINE HCL 4 MG TABLET PEG SCH ×2 (09:17→17:00)
[2020-02-08] MEDS: Z GUARD REMEDY PASTE 57 GM TUBE TOP SCH ×2 (09:17→21:06)
[2020-02-08] MEDS: HYDROGEN PEROXIDE 3% 118 ML BOTTLE TP SCH ×2 (09:21→20:40)
[2020-02-08 14:32] VITALS: BP 113/64
[2020-02-08] MEDS: ACETAMINOPHEN 650 MG/20 ML UDC- SA PATIENTS-PAIN ONLY PEG SCH (17:00)
[2020-02-08 20:30] VITALS: BP 112/60
[2020-02-09] MEDS: MULTIVIT, IRON, MIN NO. 8, FA TABLET GT SCH (05:47)
[2020-02-09] MEDS: MIDODRINE 10 MG PEG SCH ×3 (05:47→22:15)
[2020-02-09] MEDS: OMEPRAZOLE 20 MG CAPSULE.DR GT SCH (05:47)
[2020-02-09 07:16] VITALS: BP 120/61
[2020-02-09 08:00] VITALS: BP 115/76
[2020-02-09] MEDS: HYDROGEN PEROXIDE 3% 118 ML BOTTLE TP SCH ×2 (08:21→19:18)
[2020-02-09] MEDS: DOCUSATE SODIUM 100 MG/10 ML LIQUID UDC GT SCH (08:50)
[2020-02-09] MEDS: NUTRISOURCE FIBER 4 GM PACKET PEG SCH ×2 (08:50→20:47)
[2020-02-09] MEDS: FERROUS SULFATE 330 MG/7.5 ML UDC- FOR SA ONLY GT SCH ×2 (08:50→20:47)
[2020-02-09] MEDS: PROTEIN SUPPLEMENT (PROSTAT) 30 ML LIQUID PEG SCH ×2 (08:52→20:47)
[2020-02-09] MEDS: TIZANIDINE HCL 4 MG TABLET PEG SCH ×2 (08:52→17:00)
[2020-02-09] MEDS: Z GUARD REMEDY PASTE 57 GM TUBE TOP SCH ×2 (08:53→20:47)
[2020-02-09 14:24] VITALS: BP 105/58
--- NOTE | 2020-02-09 16:00 | NUR ---
video chat done with pt's mother and older brother.
[2020-02-09] MEDS: ACETAMINOPHEN 650 MG/20 ML UDC- SA PATIENTS-PAIN ONLY PEG SCH (17:00)
[2020-02-09 20:13] VITALS: BP 90/52
[2020-02-10] MEDS: TWOCAL HN 1,000 ML LIQUID PEG PRN (02:17)
[2020-02-10] MEDS: MIDODRINE 10 MG PEG SCH ×3 (06:14→21:28)
[2020-02-10] MEDS: OMEPRAZOLE 20 MG CAPSULE.DR GT SCH (06:14)
[2020-02-10 06:19] VITALS: BP 108/64
[2020-02-10 07:47] VITALS: BP 120/74
[2020-02-10] MEDS: TIZANIDINE HCL 4 MG TABLET PEG SCH ×2 (08:17→17:03)
[2020-02-10] MEDS: Z GUARD REMEDY PASTE 57 GM TUBE TOP SCH ×2 (08:17→21:28)
[2020-02-10] MEDS: DOCUSATE SODIUM 100 MG/10 ML LIQUID UDC GT SCH (08:17)
[2020-02-10] MEDS: FERROUS SULFATE 330 MG/7.5 ML UDC- FOR SA ONLY GT SCH ×2 (08:17→21:28)
[2020-02-10] MEDS: PROTEIN SUPPLEMENT (PROSTAT) 30 ML LIQUID PEG SCH ×2 (08:17→21:28)
[2020-02-10] MEDS: NUTRISOURCE FIBER 4 GM PACKET PEG SCH ×2 (08:17→21:28)
[2020-02-10] MEDS: HYDROGEN PEROXIDE 3% 118 ML BOTTLE TP SCH ×2 (09:40→20:33)
[2020-02-10 14:07] VITALS: BP 108/62
[2020-02-10] MEDS: ACETAMINOPHEN 650 MG/20 ML UDC- SA PATIENTS-PAIN ONLY PEG SCH (17:03)
[2020-02-10 21:10] VITALS: BP 103/59
[2020-02-11] MEDS: MIDODRINE 10 MG PEG SCH ×3 (05:28→21:29)
[2020-02-11] MEDS: OMEPRAZOLE 20 MG CAPSULE.DR GT SCH (05:28)
[2020-02-11] MEDS: MULTIVIT, IRON, MIN NO. 8, FA TABLET GT SCH (05:36)
[2020-02-11 07:47] VITALS: BP 116/61
[2020-02-11] MEDS: DOCUSATE SODIUM 100 MG/10 ML LIQUID UDC GT SCH (08:21)
[2020-02-11] MEDS: TIZANIDINE HCL 4 MG TABLET PEG SCH ×2 (08:22→16:44)
[2020-02-11] MEDS: PROTEIN SUPPLEMENT (PROSTAT) 30 ML LIQUID PEG SCH ×2 (08:22→21:28)
[2020-02-11] MEDS: FERROUS SULFATE 330 MG/7.5 ML UDC- FOR SA ONLY GT SCH ×2 (08:22→21:28)
[2020-02-11] MEDS: NUTRISOURCE FIBER 4 GM PACKET PEG SCH ×2 (08:22→21:28)
[2020-02-11] MEDS: Z GUARD REMEDY PASTE 57 GM TUBE TOP SCH ×2 (08:23→21:28)
[2020-02-11] MEDS: HYDROGEN PEROXIDE 3% 118 ML BOTTLE TP SCH ×2 (09:36→21:02)
--- NOTE | 2020-02-11 16:00 | NUR ---
Video chat provided with pt's mother.
[2020-02-11] MEDS: ACETAMINOPHEN 650 MG/20 ML UDC- SA PATIENTS-PAIN ONLY PEG SCH (16:44)
[2020-02-11] MEDS: TWOCAL HN 1,000 ML LIQUID PEG PRN (18:25)
[2020-02-11 20:00] VITALS: BP 102/60
[2020-02-12 05:06] VITALS: BP 104/48
[2020-02-12] MEDS: MIDODRINE 10 MG PEG SCH ×3 (06:05→21:21)
[2020-02-12] MEDS: OMEPRAZOLE 20 MG CAPSULE.DR GT SCH (06:05)
[2020-02-12 07:41] VITALS: BP 103/60
[2020-02-12] MEDS: TIZANIDINE HCL 4 MG TABLET PEG SCH ×2 (09:12→16:03)
[2020-02-12] MEDS: DOCUSATE SODIUM 100 MG/10 ML LIQUID UDC GT SCH (09:12)
[2020-02-12] MEDS: FERROUS SULFATE 330 MG/7.5 ML UDC- FOR SA ONLY GT SCH ×2 (09:12→21:20)
[2020-02-12] MEDS: NUTRISOURCE FIBER 4 GM PACKET PEG SCH ×2 (09:12→21:20)
[2020-02-12] MEDS: PROTEIN SUPPLEMENT (PROSTAT) 30 ML LIQUID PEG SCH ×2 (09:12→21:21)
[2020-02-12] MEDS: Z GUARD REMEDY PASTE 57 GM TUBE TOP SCH ×2 (09:12→21:21)
[2020-02-12] MEDS: HYDROGEN PEROXIDE 3% 118 ML BOTTLE TP SCH ×2 (09:46→21:28)
[2020-02-12] MEDS: ACETAMINOPHEN 650 MG/20 ML UDC- SA PATIENTS-PAIN ONLY PEG SCH (16:03)
[2020-02-12 20:00] VITALS: BP 115/64
[2020-02-13] MEDS: MIDODRINE 10 MG PEG SCH ×3 (05:37→21:31)
[2020-02-13] MEDS: MULTIVIT, IRON, MIN NO. 8, FA TABLET GT SCH (05:37)
[2020-02-13] MEDS: OMEPRAZOLE 20 MG CAPSULE.DR GT SCH (05:37)
[2020-02-13] MEDS: HYDROGEN PEROXIDE 3% 118 ML BOTTLE TP SCH ×2 (07:50→21:40)
[2020-02-13 07:54] VITALS: BP 117/61
[2020-02-13] MEDS: TIZANIDINE HCL 4 MG TABLET PEG SCH ×2 (08:06→16:22)
[2020-02-13] MEDS: NUTRISOURCE FIBER 4 GM PACKET PEG SCH ×2 (08:06→20:21)
[2020-02-13] MEDS: DOCUSATE SODIUM 100 MG/10 ML LIQUID UDC GT SCH (08:06)
[2020-02-13] MEDS: FERROUS SULFATE 330 MG/7.5 ML UDC- FOR SA ONLY GT SCH ×2 (08:06→20:21)
[2020-02-13] MEDS: PROTEIN SUPPLEMENT (PROSTAT) 30 ML LIQUID PEG SCH ×2 (08:06→20:21)
[2020-02-13] MEDS: Z GUARD REMEDY PASTE 57 GM TUBE TOP SCH ×2 (08:06→20:21)
[2020-02-13] MEDS: TWOCAL HN 1,000 ML LIQUID PEG PRN (12:11)
[2020-02-13 14:03] VITALS: BP 109/62
--- NOTE | 2020-02-13 15:30 | NUR ---
zoom provided for patient with mother.
[2020-02-13] MEDS: ACETAMINOPHEN 650 MG/20 ML UDC- SA PATIENTS-PAIN ONLY PEG SCH (16:21)
[2020-02-13 19:30] VITALS: BP 101/61
[2020-02-14] MEDS: OMEPRAZOLE 20 MG CAPSULE.DR GT SCH (05:14)
[2020-02-14] MEDS: MIDODRINE 10 MG PEG SCH ×3 (05:14→21:17)
[2020-02-14 07:46] VITALS: BP 100/43
[2020-02-14] MEDS: HYDROGEN PEROXIDE 3% 118 ML BOTTLE TP SCH ×2 (09:00→21:40)
[2020-02-14] MEDS: TIZANIDINE HCL 4 MG TABLET PEG SCH ×2 (09:14→16:52)
[2020-02-14] MEDS: Z GUARD REMEDY PASTE 57 GM TUBE TOP SCH ×2 (09:14→20:07)
[2020-02-14] MEDS: FERROUS SULFATE 330 MG/7.5 ML UDC- FOR SA ONLY GT SCH ×2 (09:14→20:07)
[2020-02-14] MEDS: DOCUSATE SODIUM 100 MG/10 ML LIQUID UDC GT SCH (09:14)
[2020-02-14] MEDS: NUTRISOURCE FIBER 4 GM PACKET PEG SCH ×2 (09:14→20:07)
[2020-02-14] MEDS: PROTEIN SUPPLEMENT (PROSTAT) 30 ML LIQUID PEG SCH ×2 (09:14→20:07)
--- NOTE | 2020-02-14 15:18 | NUR ---
zoom provided for patient with mother.
[2020-02-14] MEDS: ACETAMINOPHEN 650 MG/20 ML UDC- SA PATIENTS-PAIN ONLY PEG SCH (16:52)
[2020-02-14 19:18] VITALS: BP 102/60
[2020-02-15] MEDS: TWOCAL HN 1,000 ML LIQUID PEG PRN (02:52)
[2020-02-15] MEDS: MULTIVIT, IRON, MIN NO. 8, FA TABLET GT SCH (05:39)
[2020-02-15] MEDS: MIDODRINE 10 MG PEG SCH ×3 (05:39→21:16)
[2020-02-15] MEDS: OMEPRAZOLE 20 MG CAPSULE.DR GT SCH (05:39)
[2020-02-15] MEDS: BISACODYL 10 MG SUPP.RECT RC PRN (06:34)
[2020-02-15 07:48] VITALS: BP 111/60
[2020-02-15] MEDS: FERROUS SULFATE 330 MG/7.5 ML UDC- FOR SA ONLY GT SCH ×2 (09:00→20:18)
[2020-02-15] MEDS: PROTEIN SUPPLEMENT (PROSTAT) 30 ML LIQUID PEG SCH ×2 (09:00→20:18)
[2020-02-15] MEDS: DOCUSATE SODIUM 100 MG/10 ML LIQUID UDC GT SCH (09:00)
[2020-02-15] MEDS: NUTRISOURCE FIBER 4 GM PACKET PEG SCH ×2 (09:00→20:18)
[2020-02-15] MEDS: TIZANIDINE HCL 4 MG TABLET PEG SCH ×2 (09:01→16:40)
[2020-02-15] MEDS: Z GUARD REMEDY PASTE 57 GM TUBE TOP SCH ×2 (09:01→20:18)
[2020-02-15] MEDS: HYDROGEN PEROXIDE 3% 118 ML BOTTLE TP SCH ×2 (09:54→21:04)
--- NOTE | 2020-02-15 12:15 | NUR ---
PT'S MOTHER WAS AWARE OF NEW ORDER FOR COVID [address] LYNNE PER [facility] REQUIREMENT AND IN AGREEMENT.
--- NOTE | 2020-02-15 16:08 | NUR ---
ZOOM PROVIDED TO MOTHER.
[2020-02-15] MEDS: ACETAMINOPHEN 650 MG/20 ML UDC- SA PATIENTS-PAIN ONLY PEG SCH (16:40)
[2020-02-15 19:35] VITALS: BP 91/62
[2020-02-16] MEDS: MIDODRINE 10 MG PEG SCH ×3 (05:13→22:00)
[2020-02-16] MEDS: OMEPRAZOLE 20 MG CAPSULE.DR GT SCH (05:13)
[2020-02-16 07:39] VITALS: BP 93/60
[2020-02-16] MEDS: DOCUSATE SODIUM 100 MG/10 ML LIQUID UDC GT SCH (08:25)
[2020-02-16] MEDS: PROTEIN SUPPLEMENT (PROSTAT) 30 ML LIQUID PEG SCH ×2 (08:26→20:09)
[2020-02-16] MEDS: NUTRISOURCE FIBER 4 GM PACKET PEG SCH ×2 (08:26→20:09)
[2020-02-16] MEDS: Z GUARD REMEDY PASTE 57 GM TUBE TOP SCH ×2 (08:26→20:09)
[2020-02-16] MEDS: TIZANIDINE HCL 4 MG TABLET PEG SCH ×2 (08:26→17:11)
[2020-02-16] MEDS: FERROUS SULFATE 330 MG/7.5 ML UDC- FOR SA ONLY GT SCH ×2 (08:26→20:09)
[2020-02-16] MEDS: HYDROGEN PEROXIDE 3% 118 ML BOTTLE TP SCH ×2 (09:50→20:09)
[2020-02-16] MEDS: ACETAMINOPHEN 650 MG/20 ML UDC- SA PATIENTS-PAIN ONLY PEG SCH (17:11)
[2020-02-16 20:00] VITALS: BP 128/74
[2020-02-16 22:31] VITALS: BP 128/75
[2020-02-17 05:27] VITALS: BP 107/61
[2020-02-17] MEDS: MULTIVIT, IRON, MIN NO. 8, FA TABLET GT SCH (05:27)
[2020-02-17] MEDS: OMEPRAZOLE 20 MG CAPSULE.DR GT SCH (05:27)
[2020-02-17] MEDS: MIDODRINE 10 MG PEG SCH ×3 (05:27→21:51)
[2020-02-17] MEDS: HYDROGEN PEROXIDE 3% 118 ML BOTTLE TP SCH ×2 (07:26→21:08)
[2020-02-17 07:38] VITALS: BP 94/60
[2020-02-17] MEDS: PROTEIN SUPPLEMENT (PROSTAT) 30 ML LIQUID PEG SCH ×2 (08:01→21:50)
[2020-02-17] MEDS: TIZANIDINE HCL 4 MG TABLET PEG SCH ×2 (08:01→16:50)
[2020-02-17] MEDS: NUTRISOURCE FIBER 4 GM PACKET PEG SCH ×2 (08:01→21:50)
[2020-02-17] MEDS: DOCUSATE SODIUM 100 MG/10 ML LIQUID UDC GT SCH (08:01)
[2020-02-17] MEDS: Z GUARD REMEDY PASTE 57 GM TUBE TOP SCH ×2 (08:01→21:51)
[2020-02-17] MEDS: FERROUS SULFATE 330 MG/7.5 ML UDC- FOR SA ONLY GT SCH ×2 (08:01→21:50)
--- NOTE | 2020-02-17 11:03 | NUR ---
MESSAGE WAS LEFT TO PT'S MOTHER RE: COVID 19 TEST NEGATIVE.
[2020-02-17 14:24] VITALS: BP 98/56
--- NOTE | 2020-02-17 15:30 | NUR ---
video chat done with pt's mother.
[2020-02-17] MEDS: ACETAMINOPHEN 650 MG/20 ML UDC- SA PATIENTS-PAIN ONLY PEG SCH (16:51)
--- NOTE | 2020-02-17 19:10 | NUR ---
Seen and examined by Dr Wu,no new orders.
[2020-02-17 19:51] VITALS: BP 96/63
[2020-02-18] MEDS: MIDODRINE 10 MG PEG SCH ×3 (05:32→22:27)
[2020-02-18] MEDS: OMEPRAZOLE 20 MG CAPSULE.DR GT SCH (05:32)
[2020-02-18 07:42] VITALS: BP 117/72
[2020-02-18] MEDS: PROTEIN SUPPLEMENT (PROSTAT) 30 ML LIQUID PEG SCH ×2 (08:41→21:00)
[2020-02-18] MEDS: TIZANIDINE HCL 4 MG TABLET PEG SCH ×2 (08:41→17:04)
[2020-02-18] MEDS: Z GUARD REMEDY PASTE 57 GM TUBE TOP SCH ×2 (08:41→21:00)
[2020-02-18] MEDS: FERROUS SULFATE 330 MG/7.5 ML UDC- FOR SA ONLY GT SCH ×2 (08:41→21:00)
[2020-02-18] MEDS: DOCUSATE SODIUM 100 MG/10 ML LIQUID UDC GT SCH (08:41)
[2020-02-18] MEDS: NUTRISOURCE FIBER 4 GM PACKET PEG SCH ×2 (08:41→21:00)
[2020-02-18] MEDS: HYDROGEN PEROXIDE 3% 118 ML BOTTLE TP SCH ×2 (09:00→20:59)
[2020-02-18] MEDS: ACETAMINOPHEN 650 MG/20 ML UDC- SA PATIENTS-PAIN ONLY PEG SCH (17:04)
[2020-02-18 19:56] VITALS: BP 95/55
[2020-02-19] MEDS: TWOCAL HN 1,000 ML LIQUID PEG PRN (03:00)
[2020-02-19] MEDS: MIDODRINE 10 MG PEG SCH ×3 (05:39→21:00)
[2020-02-19] MEDS: MULTIVIT, IRON, MIN NO. 8, FA TABLET GT SCH (05:39)
[2020-02-19] MEDS: OMEPRAZOLE 20 MG CAPSULE.DR GT SCH (05:39)
[2020-02-19 07:29] VITALS: BP 102/50
[2020-02-19] MEDS: HYDROGEN PEROXIDE 3% 118 ML BOTTLE TP SCH ×2 (07:55→21:40)
[2020-02-19] MEDS: PROTEIN SUPPLEMENT (PROSTAT) 30 ML LIQUID PEG SCH ×2 (09:16→20:59)
[2020-02-19] MEDS: NUTRISOURCE FIBER 4 GM PACKET PEG SCH ×2 (09:16→20:59)
[2020-02-19] MEDS: Z GUARD REMEDY PASTE 57 GM TUBE TOP SCH ×2 (09:16→21:00)
[2020-02-19] MEDS: FERROUS SULFATE 330 MG/7.5 ML UDC- FOR SA ONLY GT SCH ×2 (09:16→20:59)
[2020-02-19] MEDS: DOCUSATE SODIUM 100 MG/10 ML LIQUID UDC GT SCH (09:16)
[2020-02-19] MEDS: TIZANIDINE HCL 4 MG TABLET PEG SCH ×2 (09:16→17:09)
[2020-02-19] MEDS: ACETAMINOPHEN 650 MG/20 ML UDC- SA PATIENTS-PAIN ONLY PEG SCH (17:07)
--- NOTE | 2020-02-19 17:45 | NUR ---
CALLED AND NOTIFIED [employer] OF ANNUAL PPD TEST. NOTIFIED DEMETRICE OF THE PPD TEST, AND SHE OKAYED TO GIVE TEST.
[2020-02-19 20:19] VITALS: BP 92/53
[2020-02-20] MEDS: MIDODRINE 10 MG PEG SCH ×3 (05:11→22:34)
[2020-02-20] MEDS: OMEPRAZOLE 20 MG CAPSULE.DR GT SCH (05:11)
[2020-02-20 07:27] VITALS: BP 100/63
[2020-02-20] MEDS: FERROUS SULFATE 330 MG/7.5 ML UDC- FOR SA ONLY GT SCH ×2 (08:22→20:56)
[2020-02-20] MEDS: DOCUSATE SODIUM 100 MG/10 ML LIQUID UDC GT SCH (08:22)
[2020-02-20] MEDS: Z GUARD REMEDY PASTE 57 GM TUBE TOP SCH ×2 (08:23→20:53)
[2020-02-20] MEDS: TIZANIDINE HCL 4 MG TABLET PEG SCH ×2 (08:23→16:28)
[2020-02-20] MEDS: NUTRISOURCE FIBER 4 GM PACKET PEG SCH ×2 (08:23→20:53)
[2020-02-20] MEDS: PROTEIN SUPPLEMENT (PROSTAT) 30 ML LIQUID PEG SCH ×2 (08:23→20:53)
[2020-02-20] MEDS: HYDROGEN PEROXIDE 3% 118 ML BOTTLE TP SCH ×2 (09:40→21:45)
[2020-02-20 14:00] VITALS: BP 98/52
--- NOTE | 2020-02-20 16:00 | NUR ---
Video chat done with pt's mother.
[2020-02-20] MEDS: ACETAMINOPHEN 650 MG/20 ML UDC- SA PATIENTS-PAIN ONLY PEG SCH (16:28)
[2020-02-20 19:28] VITALS: BP 100/55
[2020-02-21] MEDS: TWOCAL HN 1,000 ML LIQUID PEG PRN (02:59)
[2020-02-21] MEDS: OMEPRAZOLE 20 MG CAPSULE.DR GT SCH (05:38)
[2020-02-21] MEDS: MIDODRINE 10 MG PEG SCH ×3 (05:38→21:07)
[2020-02-21] MEDS: MULTIVIT, IRON, MIN NO. 8, FA TABLET GT SCH (05:38)
[2020-02-21 07:54] VITALS: BP 120/60
[2020-02-21] MEDS: DOCUSATE SODIUM 100 MG/10 ML LIQUID UDC GT SCH (09:17)
[2020-02-21] MEDS: NUTRISOURCE FIBER 4 GM PACKET PEG SCH ×2 (09:18→20:22)
[2020-02-21] MEDS: Z GUARD REMEDY PASTE 57 GM TUBE TOP SCH ×2 (09:18→20:23)
[2020-02-21] MEDS: FERROUS SULFATE 330 MG/7.5 ML UDC- FOR SA ONLY GT SCH ×2 (09:18→20:22)
[2020-02-21] MEDS: TIZANIDINE HCL 4 MG TABLET PEG SCH ×2 (09:18→17:07)
[2020-02-21] MEDS: PROTEIN SUPPLEMENT (PROSTAT) 30 ML LIQUID PEG SCH ×2 (09:18→20:22)
[2020-02-21] MEDS: HYDROGEN PEROXIDE 3% 118 ML BOTTLE TP SCH ×2 (09:50→21:00)
[2020-02-21 13:11] VITALS: BP 99/50
--- NOTE | 2020-02-21 17:02 | NUR ---
Video chat done with pt's mother at this time.
[2020-02-21] MEDS: ACETAMINOPHEN 650 MG/20 ML UDC- SA PATIENTS-PAIN ONLY PEG SCH (17:07)
[2020-02-21 19:23] VITALS: BP 92/45
[2020-02-22 05:00] VITALS: BP 90/57
[2020-02-22] MEDS: MIDODRINE 10 MG PEG SCH ×3 (05:00→21:24)
[2020-02-22] MEDS: OMEPRAZOLE 20 MG CAPSULE.DR GT SCH (05:00)
[2020-02-22] MEDS: HYDROGEN PEROXIDE 3% 118 ML BOTTLE TP SCH ×2 (07:42→21:31)
[2020-02-22 07:51] VITALS: BP 105/57
[2020-02-22] MEDS: DOCUSATE SODIUM 100 MG/10 ML LIQUID UDC GT SCH (08:46)
[2020-02-22] MEDS: TIZANIDINE HCL 4 MG TABLET PEG SCH ×2 (08:53→17:28)
[2020-02-22] MEDS: FERROUS SULFATE 330 MG/7.5 ML UDC- FOR SA ONLY GT SCH ×2 (08:53→21:24)
[2020-02-22] MEDS: NUTRISOURCE FIBER 4 GM PACKET PEG SCH ×2 (08:53→21:24)
[2020-02-22] MEDS: PROTEIN SUPPLEMENT (PROSTAT) 30 ML LIQUID PEG SCH ×2 (08:53→21:24)
[2020-02-22] MEDS: Z GUARD REMEDY PASTE 57 GM TUBE TOP SCH ×2 (08:53→21:24)
[2020-02-22] MEDS: ACETAMINOPHEN 650 MG/20 ML UDC- SA PATIENTS-PAIN ONLY PEG SCH (17:29)
[2020-02-22 19:25] VITALS: BP 94/54
[2020-02-23] MEDS: TWOCAL HN 1,000 ML LIQUID PEG PRN (04:44)
[2020-02-23] MEDS: OMEPRAZOLE 20 MG CAPSULE.DR GT SCH (05:41)
[2020-02-23] MEDS: MIDODRINE 10 MG PEG SCH ×3 (05:41→21:08)
[2020-02-23] MEDS: MULTIVIT, IRON, MIN NO. 8, FA TABLET GT SCH (05:42)
[2020-02-23 07:42] VITALS: BP 115/60
[2020-02-23] MEDS: DOCUSATE SODIUM 100 MG/10 ML LIQUID UDC GT SCH (08:46)
[2020-02-23] MEDS: TIZANIDINE HCL 4 MG TABLET PEG SCH ×2 (08:46→17:17)
[2020-02-23] MEDS: NUTRISOURCE FIBER 4 GM PACKET PEG SCH ×2 (08:46→21:08)
[2020-02-23] MEDS: FERROUS SULFATE 330 MG/7.5 ML UDC- FOR SA ONLY GT SCH ×2 (08:46→21:08)
[2020-02-23] MEDS: PROTEIN SUPPLEMENT (PROSTAT) 30 ML LIQUID PEG SCH ×2 (08:46→21:08)
[2020-02-23] MEDS: Z GUARD REMEDY PASTE 57 GM TUBE TOP SCH ×2 (08:47→21:08)
[2020-02-23] MEDS: HYDROGEN PEROXIDE 3% 118 ML BOTTLE TP SCH ×2 (09:25→19:34)
--- NOTE | 2020-02-23 16:32 | NUR ---
Left message to Mother regarding covic19 test to be done today.
[2020-02-23] MEDS: ACETAMINOPHEN 650 MG/20 ML UDC- SA PATIENTS-PAIN ONLY PEG SCH (17:17)
--- NOTE | 2020-02-23 17:50 | NUR ---
Video chat provided with pt. and family (mother). Family verbalized no complaints. Pt. stable at this time. Will continue to monitor.
[2020-02-23 20:10] VITALS: BP 102/65
[2020-02-24] MEDS: OMEPRAZOLE 20 MG CAPSULE.DR GT SCH (05:41)
[2020-02-24] MEDS: MIDODRINE 10 MG PEG SCH ×3 (05:41→22:38)
[2020-02-24 07:33] VITALS: BP 120/67
[2020-02-24] MEDS: DOCUSATE SODIUM 100 MG/10 ML LIQUID UDC GT SCH (08:28)
[2020-02-24] MEDS: FERROUS SULFATE 330 MG/7.5 ML UDC- FOR SA ONLY GT SCH ×2 (08:28→20:56)
[2020-02-24] MEDS: NUTRISOURCE FIBER 4 GM PACKET PEG SCH ×2 (08:28→20:56)
[2020-02-24] MEDS: PROTEIN SUPPLEMENT (PROSTAT) 30 ML LIQUID PEG SCH ×2 (08:29→20:56)
[2020-02-24] MEDS: Z GUARD REMEDY PASTE 57 GM TUBE TOP SCH ×2 (08:29→20:56)
[2020-02-24] MEDS: TIZANIDINE HCL 4 MG TABLET PEG SCH ×2 (08:29→17:50)
[2020-02-24] MEDS: HYDROGEN PEROXIDE 3% 118 ML BOTTLE TP SCH ×2 (08:50→21:56)
[2020-02-24] MEDS: TWOCAL HN 1,000 ML LIQUID PEG PRN (15:41)
--- NOTE | 2020-02-24 16:04 | NUR ---
Video call provided with pt. and family(mother). No complaints or concerts at this time. Pt. stable and no respiratory distress at this time. Will continue to monitor.
[2020-02-24] MEDS: ACETAMINOPHEN 650 MG/20 ML UDC- SA PATIENTS-PAIN ONLY PEG SCH (17:50)
[2020-02-24 20:05] VITALS: BP 96/66
[2020-02-25] MEDS: MIDODRINE 10 MG PEG SCH ×3 (05:39→22:50)
[2020-02-25] MEDS: OMEPRAZOLE 20 MG CAPSULE.DR GT SCH (05:39)
[2020-02-25] MEDS: MULTIVIT, IRON, MIN NO. 8, FA TABLET GT SCH (05:40)
[2020-02-25] MEDS: HYDROGEN PEROXIDE 3% 118 ML BOTTLE TP SCH ×2 (07:40→21:38)
[2020-02-25 07:43] VITALS: BP 110/61
[2020-02-25] MEDS: DOCUSATE SODIUM 100 MG/10 ML LIQUID UDC GT SCH (09:09)
[2020-02-25] MEDS: FERROUS SULFATE 330 MG/7.5 ML UDC- FOR SA ONLY GT SCH ×2 (09:09→20:52)
[2020-02-25] MEDS: PROTEIN SUPPLEMENT (PROSTAT) 30 ML LIQUID PEG SCH ×2 (09:10→20:52)
[2020-02-25] MEDS: Z GUARD REMEDY PASTE 57 GM TUBE TOP SCH ×2 (09:10→20:52)
[2020-02-25] MEDS: TIZANIDINE HCL 4 MG TABLET PEG SCH ×2 (09:10→17:54)
[2020-02-25] MEDS: NUTRISOURCE FIBER 4 GM PACKET PEG SCH ×2 (09:10→20:52)
[2020-02-25] MEDS: ACETAMINOPHEN 650 MG/20 ML UDC- SA PATIENTS-PAIN ONLY PEG SCH (17:54)
--- NOTE | 2020-02-25 18:55 | NUR ---
Pt's mother Morena notified regarding Covid 19 results was negative.
[2020-02-25 20:07] VITALS: BP 84/42
[2020-02-26] MEDS: OMEPRAZOLE 20 MG CAPSULE.DR GT SCH (05:40)
[2020-02-26] MEDS: TWOCAL HN 1,000 ML LIQUID PEG PRN (05:41)
[2020-02-26] MEDS: MIDODRINE 10 MG PEG SCH ×3 (05:41→22:02)
[2020-02-26 07:30] VITALS: BP 112/52
[2020-02-26] MEDS: TIZANIDINE HCL 4 MG TABLET PEG SCH ×2 (08:02→17:29)
[2020-02-26] MEDS: PROTEIN SUPPLEMENT (PROSTAT) 30 ML LIQUID PEG SCH ×2 (08:02→21:00)
[2020-02-26] MEDS: FERROUS SULFATE 330 MG/7.5 ML UDC- FOR SA ONLY GT SCH ×2 (08:02→21:00)
[2020-02-26] MEDS: Z GUARD REMEDY PASTE 57 GM TUBE TOP SCH ×2 (08:02→21:00)
[2020-02-26] MEDS: DOCUSATE SODIUM 100 MG/10 ML LIQUID UDC GT SCH (08:02)
[2020-02-26] MEDS: NUTRISOURCE FIBER 4 GM PACKET PEG SCH ×2 (08:02→21:00)
[2020-02-26] MEDS: HYDROGEN PEROXIDE 3% 118 ML BOTTLE TP SCH ×2 (09:44→20:48)
--- NOTE | 2020-02-26 16:49 | NUR ---
SEEN BY DR. LYNNE AND ALICIA COTTO N.P. AND WITH NNO.
[2020-02-26] MEDS: ACETAMINOPHEN 650 MG/20 ML UDC- SA PATIENTS-PAIN ONLY PEG SCH (17:29)
[2020-02-26 22:02] VITALS: BP 101/55
[2020-02-27] MEDS: OMEPRAZOLE 20 MG CAPSULE.DR GT SCH (05:00)
[2020-02-27] MEDS: MIDODRINE 10 MG PEG SCH ×3 (05:00→21:54)
[2020-02-27 05:01] VITALS: BP 102/60
[2020-02-27] MEDS: MULTIVIT, IRON, MIN NO. 8, FA TABLET GT SCH (05:39)
[2020-02-27 08:00] VITALS: BP_SYST 121; BP_SYST 126; BP_DIAS 72
[2020-02-27] MEDS: DOCUSATE SODIUM 100 MG/10 ML LIQUID UDC GT SCH (08:06)
[2020-02-27] MEDS: TIZANIDINE HCL 4 MG TABLET PEG SCH ×2 (08:07→17:44)
[2020-02-27] MEDS: FERROUS SULFATE 330 MG/7.5 ML UDC- FOR SA ONLY GT SCH ×2 (08:07→21:53)
[2020-02-27] MEDS: PROTEIN SUPPLEMENT (PROSTAT) 30 ML LIQUID PEG SCH ×2 (08:07→21:53)
[2020-02-27] MEDS: NUTRISOURCE FIBER 4 GM PACKET PEG SCH ×2 (08:07→21:53)
[2020-02-27] MEDS: Z GUARD REMEDY PASTE 57 GM TUBE TOP SCH ×2 (08:09→21:53)
[2020-02-27] MEDS: HYDROGEN PEROXIDE 3% 118 ML BOTTLE TP SCH ×2 (09:00→21:59)
[2020-02-27 14:39] VITALS: BP 101/64
--- NOTE | 2020-02-27 15:46 | NUR ---
Video chat provided with pt's mother.
[2020-02-27] MEDS: ACETAMINOPHEN 650 MG/20 ML UDC- SA PATIENTS-PAIN ONLY PEG SCH (17:44)
[2020-02-27 20:18] VITALS: BP 90/57
[2020-02-28] MEDS: TWOCAL HN 1,000 ML LIQUID PEG PRN (01:57)
--- NOTE | 2020-02-28 02:15 | NUR ---
For COVID-19 testing as per [facility] requirement.
[2020-02-28 05:19] VITALS: BP 105/62
[2020-02-28] MEDS: OMEPRAZOLE 20 MG CAPSULE.DR GT SCH (05:19)
[2020-02-28] MEDS: MIDODRINE 10 MG PEG SCH ×3 (05:19→22:06)
[2020-02-28 07:38] VITALS: BP 119/64
[2020-02-28] MEDS: HYDROGEN PEROXIDE 3% 118 ML BOTTLE TP SCH ×2 (07:50→21:00)
--- NOTE | 2020-02-28 09:00 | NUR ---
PT'S MOTHER AWARE OF COVID 19 TEST FOR TODAY.
[2020-02-28] MEDS: DOCUSATE SODIUM 100 MG/10 ML LIQUID UDC GT SCH (09:03)
[2020-02-28] MEDS: PROTEIN SUPPLEMENT (PROSTAT) 30 ML LIQUID PEG SCH ×2 (09:03→21:00)
[2020-02-28] MEDS: FERROUS SULFATE 330 MG/7.5 ML UDC- FOR SA ONLY GT SCH ×2 (09:03→21:00)
[2020-02-28] MEDS: Z GUARD REMEDY PASTE 57 GM TUBE TOP SCH ×2 (09:03→21:00)
[2020-02-28] MEDS: NUTRISOURCE FIBER 4 GM PACKET PEG SCH ×2 (09:03→21:00)
[2020-02-28] MEDS: TIZANIDINE HCL 4 MG TABLET PEG SCH ×2 (09:03→17:45)
[2020-02-28] MEDS: ACETAMINOPHEN 650 MG/20 ML UDC- SA PATIENTS-PAIN ONLY PEG SCH (17:45)
[2020-02-28 20:27] VITALS: BP 98/55
[2020-02-29 05:11] VITALS: BP 105/62
[2020-02-29] MEDS: OMEPRAZOLE 20 MG CAPSULE.DR GT SCH (05:11)
[2020-02-29] MEDS: MIDODRINE 10 MG PEG SCH ×3 (05:11→22:40)
[2020-02-29] MEDS: MULTIVIT, IRON, MIN NO. 8, FA TABLET GT SCH (05:36)
[2020-02-29 07:30] VITALS: BP 120/61
[2020-02-29] MEDS: HYDROGEN PEROXIDE 3% 118 ML BOTTLE TP SCH ×2 (08:15→21:32)
[2020-02-29] MEDS: Z GUARD REMEDY PASTE 57 GM TUBE TOP SCH ×2 (08:31→20:49)
[2020-02-29] MEDS: FERROUS SULFATE 330 MG/7.5 ML UDC- FOR SA ONLY GT SCH ×2 (08:31→20:49)
[2020-02-29] MEDS: NUTRISOURCE FIBER 4 GM PACKET PEG SCH ×2 (08:31→20:49)
[2020-02-29] MEDS: PROTEIN SUPPLEMENT (PROSTAT) 30 ML LIQUID PEG SCH ×2 (08:31→20:49)
[2020-02-29] MEDS: DOCUSATE SODIUM 100 MG/10 ML LIQUID UDC GT SCH (08:31)
[2020-02-29] MEDS: TIZANIDINE HCL 4 MG TABLET PEG SCH ×2 (08:31→17:43)
--- NOTE | 2020-02-29 16:57 | NUR ---
PT'S MOTHER AWARE THAT PT'S COVID 19 TEST IS NEGATIVE.
[2020-02-29] MEDS: ACETAMINOPHEN 650 MG/20 ML UDC- SA PATIENTS-PAIN ONLY PEG SCH (17:42)
[2020-02-29 20:01] VITALS: BP 92/54
[2020-03-01] MEDS: OMEPRAZOLE 20 MG CAPSULE.DR GT SCH (05:35)
[2020-03-01] MEDS: MIDODRINE 10 MG PEG SCH ×3 (05:35→21:07)
[2020-03-01 07:45] VITALS: BP 98/53
[2020-03-01] MEDS: HYDROGEN PEROXIDE 3% 118 ML BOTTLE TP SCH ×2 (08:36→21:45)
[2020-03-01] MEDS: Z GUARD REMEDY PASTE 57 GM TUBE TOP SCH ×2 (09:00→21:06)
[2020-03-01] MEDS: DOCUSATE SODIUM 100 MG/10 ML LIQUID UDC GT SCH (09:00)
[2020-03-01] MEDS: FERROUS SULFATE 330 MG/7.5 ML UDC- FOR SA ONLY GT SCH ×2 (09:00→21:06)
[2020-03-01] MEDS: PROTEIN SUPPLEMENT (PROSTAT) 30 ML LIQUID PEG SCH ×2 (09:00→21:06)
[2020-03-01] MEDS: TIZANIDINE HCL 4 MG TABLET PEG SCH ×2 (09:00→17:37)
[2020-03-01] MEDS: NUTRISOURCE FIBER 4 GM PACKET PEG SCH ×2 (09:00→21:06)
--- NOTE | 2020-03-01 13:02 | NUR ---
BP 112/61
--- NOTE | 2020-03-01 15:45 | NUR ---
Video call provided with pt. and family MOTHER. No complaints / issues verbalized by the family. Pt. stable condition. Will continue to monitor.
[2020-03-01] MEDS: ACETAMINOPHEN 650 MG/20 ML UDC- SA PATIENTS-PAIN ONLY PEG SCH (17:37)
[2020-03-01] MEDS: TWOCAL HN 1,000 ML LIQUID PEG PRN (18:23)
[2020-03-01 20:02] VITALS: BP 90/53
[2020-03-02] MEDS: MIDODRINE 10 MG PEG SCH ×3 (05:56→21:47)
[2020-03-02] MEDS: MULTIVIT, IRON, MIN NO. 8, FA TABLET GT SCH (05:56)
[2020-03-02] MEDS: OMEPRAZOLE 20 MG CAPSULE.DR GT SCH (05:56)
[2020-03-02 07:14] VITALS: BP 104/59
[2020-03-02 07:28] VITALS: BP 113/54
[2020-03-02] MEDS: HYDROGEN PEROXIDE 3% 118 ML BOTTLE TP SCH ×2 (09:00→21:07)
[2020-03-02] MEDS: DOCUSATE SODIUM 100 MG/10 ML LIQUID UDC GT SCH (09:10)
[2020-03-02] MEDS: FERROUS SULFATE 330 MG/7.5 ML UDC- FOR SA ONLY GT SCH ×2 (09:10→21:46)
[2020-03-02] MEDS: NUTRISOURCE FIBER 4 GM PACKET PEG SCH ×2 (09:11→21:46)
[2020-03-02] MEDS: PROTEIN SUPPLEMENT (PROSTAT) 30 ML LIQUID PEG SCH ×2 (09:11→21:46)
[2020-03-02] MEDS: TIZANIDINE HCL 4 MG TABLET PEG SCH ×2 (09:12→17:11)
[2020-03-02] MEDS: Z GUARD REMEDY PASTE 57 GM TUBE TOP SCH ×2 (09:12→21:46)
[2020-03-02] MEDS: ACETAMINOPHEN 650 MG/20 ML UDC- SA PATIENTS-PAIN ONLY PEG SCH (17:11)
[2020-03-02 19:54] VITALS: BP 90/53
[2020-03-03] MEDS: OMEPRAZOLE 20 MG CAPSULE.DR GT SCH (05:42)
[2020-03-03] MEDS: MIDODRINE 10 MG PEG SCH ×3 (05:42→21:31)
[2020-03-03 05:43] VITALS: BP 121/56
--- NOTE | 2020-03-03 06:32 | NUR ---
Seen and examined by Marta Guerin NP with no new orders.
[2020-03-03 07:31] VITALS: BP 113/69
[2020-03-03] MEDS: DOCUSATE SODIUM 100 MG/10 ML LIQUID UDC GT SCH (08:27)
[2020-03-03] MEDS: FERROUS SULFATE 330 MG/7.5 ML UDC- FOR SA ONLY GT SCH ×2 (08:28→21:29)
[2020-03-03] MEDS: NUTRISOURCE FIBER 4 GM PACKET PEG SCH ×2 (08:28→21:31)
[2020-03-03] MEDS: Z GUARD REMEDY PASTE 57 GM TUBE TOP SCH ×2 (08:29→21:31)
[2020-03-03] MEDS: PROTEIN SUPPLEMENT (PROSTAT) 30 ML LIQUID PEG SCH ×2 (08:29→21:31)
[2020-03-03] MEDS: TIZANIDINE HCL 4 MG TABLET PEG SCH ×2 (08:29→16:55)
[2020-03-03] MEDS: HYDROGEN PEROXIDE 3% 118 ML BOTTLE TP SCH ×2 (09:49→21:45)
[2020-03-03 14:39] VITALS: BP 98/60
--- NOTE | 2020-03-03 15:30 | NUR ---
Video chat done with pt's mother.
[2020-03-03] MEDS: ACETAMINOPHEN 650 MG/20 ML UDC- SA PATIENTS-PAIN ONLY PEG SCH (16:55)
[2020-03-03 22:44] VITALS: BP 94/56
[2020-03-04] MEDS: MIDODRINE 10 MG PEG SCH ×3 (05:20→21:49)
[2020-03-04] MEDS: OMEPRAZOLE 20 MG CAPSULE.DR GT SCH (05:20)
[2020-03-04] MEDS: MULTIVIT, IRON, MIN NO. 8, FA TABLET GT SCH (06:46)
[2020-03-04 07:25] VITALS: BP 103/54
[2020-03-04] MEDS: HYDROGEN PEROXIDE 3% 118 ML BOTTLE TP SCH ×2 (07:56→21:00)
[2020-03-04] MEDS: DOCUSATE SODIUM 100 MG/10 ML LIQUID UDC GT SCH (08:24)
[2020-03-04] MEDS: FERROUS SULFATE 330 MG/7.5 ML UDC- FOR SA ONLY GT SCH ×2 (08:25→21:49)
[2020-03-04] MEDS: TIZANIDINE HCL 4 MG TABLET PEG SCH ×2 (08:25→17:22)
[2020-03-04] MEDS: PROTEIN SUPPLEMENT (PROSTAT) 30 ML LIQUID PEG SCH ×2 (08:25→21:49)
[2020-03-04] MEDS: NUTRISOURCE FIBER 4 GM PACKET PEG SCH ×2 (08:25→21:49)
[2020-03-04] MEDS: Z GUARD REMEDY PASTE 57 GM TUBE TOP SCH ×2 (08:25→21:49)
--- NOTE | 2020-03-04 10:28 | NUR ---
JEY notified patient's mother Morena, via email, that the next IDT meeting for the patient has been scheduled for 03/09 at 11am. JEY asked Morena to let this SW know if Morena would like to participate in the meeting by speaker phone.
--- NOTE | 2020-03-04 16:54 | NUR ---
Seen by Dr Wu,no new orders.
[2020-03-04] MEDS: ACETAMINOPHEN 650 MG/20 ML UDC- SA PATIENTS-PAIN ONLY PEG SCH (17:22)
[2020-03-04 19:39] VITALS: BP 96/55
[2020-03-05 05:19] VITALS: BP 95/58
[2020-03-05] MEDS: OMEPRAZOLE 20 MG CAPSULE.DR GT SCH (05:19)
[2020-03-05] MEDS: MIDODRINE 10 MG PEG SCH ×3 (05:19→21:10)
[2020-03-05] MEDS: HYDROGEN PEROXIDE 3% 118 ML BOTTLE TP SCH ×2 (07:19→21:31)
[2020-03-05 07:28] VITALS: BP 99/52
[2020-03-05] MEDS: DOCUSATE SODIUM 100 MG/10 ML LIQUID UDC GT SCH (08:30)
[2020-03-05] MEDS: NUTRISOURCE FIBER 4 GM PACKET PEG SCH ×2 (08:30→21:10)
[2020-03-05] MEDS: TIZANIDINE HCL 4 MG TABLET PEG SCH ×2 (08:30→17:21)
[2020-03-05] MEDS: FERROUS SULFATE 330 MG/7.5 ML UDC- FOR SA ONLY GT SCH ×2 (08:30→21:10)
[2020-03-05] MEDS: PROTEIN SUPPLEMENT (PROSTAT) 30 ML LIQUID PEG SCH ×2 (08:30→21:10)
[2020-03-05] MEDS: Z GUARD REMEDY PASTE 57 GM TUBE TOP SCH ×2 (08:31→21:10)
--- NOTE | 2020-03-05 11:16 | NUR ---
JEY received an email from patient's mother Morena, in response to the email this SW had sent Morena on 03/04, stating that she had no concerns at this time and did not feel the need to participate in the IDT meeting since she was in constant communication with the nurses and they have been providing Morena with regular updates on the patient. JEY emailed Morena back confirming receipt of her email and acknowledging her response.
[2020-03-05] MEDS: ACETAMINOPHEN 650 MG/20 ML UDC- SA PATIENTS-PAIN ONLY PEG SCH (17:21)
[2020-03-05] MEDS: TWOCAL HN 1,000 ML LIQUID PEG PRN (21:10)
[2020-03-05 22:14] VITALS: BP 94/58
[2020-03-06] MEDS: MIDODRINE 10 MG PEG SCH ×3 (05:30→22:00)
[2020-03-06] MEDS: OMEPRAZOLE 20 MG CAPSULE.DR GT SCH (05:30)
[2020-03-06] MEDS: MULTIVIT, IRON, MIN NO. 8, FA TABLET GT SCH (05:30)
[2020-03-06 07:34] VITALS: BP 110/63
[2020-03-06] MEDS: HYDROGEN PEROXIDE 3% 118 ML BOTTLE TP SCH ×2 (09:00→21:00)
[2020-03-06] MEDS: DOCUSATE SODIUM 100 MG/10 ML LIQUID UDC GT SCH (09:09)
[2020-03-06] MEDS: FERROUS SULFATE 330 MG/7.5 ML UDC- FOR SA ONLY GT SCH ×2 (09:10→20:28)
[2020-03-06] MEDS: NUTRISOURCE FIBER 4 GM PACKET PEG SCH ×2 (09:10→20:28)
[2020-03-06] MEDS: TIZANIDINE HCL 4 MG TABLET PEG SCH ×2 (09:11→16:54)
[2020-03-06] MEDS: PROTEIN SUPPLEMENT (PROSTAT) 30 ML LIQUID PEG SCH ×2 (09:11→20:28)
[2020-03-06] MEDS: Z GUARD REMEDY PASTE 57 GM TUBE TOP SCH ×2 (09:11→20:28)
[2020-03-06] MEDS: ACETAMINOPHEN 650 MG/20 ML UDC- SA PATIENTS-PAIN ONLY PEG SCH (16:54)
--- NOTE | 2020-03-06 17:35 | NUR ---
Video chat done with pt's mother.
[2020-03-06 22:07] VITALS: BP 94/54
[2020-03-07] MEDS: MIDODRINE 10 MG PEG SCH ×3 (05:20→21:56)
[2020-03-07] MEDS: OMEPRAZOLE 20 MG CAPSULE.DR GT SCH (05:20)
[2020-03-07 07:24] VITALS: BP 122/62
[2020-03-07] MEDS: HYDROGEN PEROXIDE 3% 118 ML BOTTLE TP SCH ×2 (07:30→19:44)
[2020-03-07] MEDS: FERROUS SULFATE 330 MG/7.5 ML UDC- FOR SA ONLY GT SCH ×2 (08:55→21:56)
[2020-03-07] MEDS: NUTRISOURCE FIBER 4 GM PACKET PEG SCH ×2 (08:55→21:56)
[2020-03-07] MEDS: Z GUARD REMEDY PASTE 57 GM TUBE TOP SCH ×2 (08:55→21:56)
[2020-03-07] MEDS: TIZANIDINE HCL 4 MG TABLET PEG SCH ×2 (08:55→17:26)
[2020-03-07] MEDS: DOCUSATE SODIUM 100 MG/10 ML LIQUID UDC GT SCH (08:55)
[2020-03-07] MEDS: PROTEIN SUPPLEMENT (PROSTAT) 30 ML LIQUID PEG SCH ×2 (08:55→21:56)
[2020-03-07 14:07] VITALS: BP 109/62
[2020-03-07] MEDS: ACETAMINOPHEN 650 MG/20 ML UDC- SA PATIENTS-PAIN ONLY PEG SCH (17:26)
--- NOTE | 2020-03-07 20:03 | NUR ---
Covid results negative ,Morena pt's mother notified.
[2020-03-07 23:28] VITALS: BP 98/58
[2020-03-08] MEDS: MIDODRINE 10 MG PEG SCH ×3 (06:21→21:51)
[2020-03-08] MEDS: MULTIVIT, IRON, MIN NO. 8, FA TABLET GT SCH (06:21)
[2020-03-08] MEDS: OMEPRAZOLE 20 MG CAPSULE.DR GT SCH (06:21)
[2020-03-08 06:22] VITALS: BP 103/55
[2020-03-08 07:48] VITALS: BP 128/61
[2020-03-08] MEDS: NUTRISOURCE FIBER 4 GM PACKET PEG SCH ×2 (09:12→20:32)
[2020-03-08] MEDS: FERROUS SULFATE 330 MG/7.5 ML UDC- FOR SA ONLY GT SCH ×2 (09:12→20:32)
[2020-03-08] MEDS: DOCUSATE SODIUM 100 MG/10 ML LIQUID UDC GT SCH (09:12)
[2020-03-08] MEDS: TIZANIDINE HCL 4 MG TABLET PEG SCH ×2 (09:13→16:23)
[2020-03-08] MEDS: Z GUARD REMEDY PASTE 57 GM TUBE TOP SCH ×2 (09:13→20:32)
[2020-03-08] MEDS: PROTEIN SUPPLEMENT (PROSTAT) 30 ML LIQUID PEG SCH ×2 (09:13→20:32)
[2020-03-08] MEDS: HYDROGEN PEROXIDE 3% 118 ML BOTTLE TP SCH ×2 (09:15→21:23)
--- NOTE | 2020-03-08 15:57 | NUR ---
ZOOM PROVIDED TO MOTHER.
[2020-03-08] MEDS: ACETAMINOPHEN 650 MG/20 ML UDC- SA PATIENTS-PAIN ONLY PEG SCH (16:23)
[2020-03-08 19:54] VITALS: BP 108/59
[2020-03-09] MEDS: OMEPRAZOLE 20 MG CAPSULE.DR GT SCH (05:34)
[2020-03-09] MEDS: MIDODRINE 10 MG PEG SCH ×3 (05:40→21:28)
[2020-03-09 07:51] VITALS: BP 103/58
[2020-03-09] MEDS: HYDROGEN PEROXIDE 3% 118 ML BOTTLE TP SCH ×2 (07:57→21:00)
[2020-03-09] MEDS: PROTEIN SUPPLEMENT (PROSTAT) 30 ML LIQUID PEG SCH ×2 (09:24→21:28)
[2020-03-09] MEDS: FERROUS SULFATE 330 MG/7.5 ML UDC- FOR SA ONLY GT SCH ×2 (09:24→21:28)
[2020-03-09] MEDS: NUTRISOURCE FIBER 4 GM PACKET PEG SCH ×2 (09:24→21:28)
[2020-03-09] MEDS: DOCUSATE SODIUM 100 MG/10 ML LIQUID UDC GT SCH (09:24)
[2020-03-09] MEDS: TIZANIDINE HCL 4 MG TABLET PEG SCH ×2 (09:24→16:02)
[2020-03-09] MEDS: Z GUARD REMEDY PASTE 57 GM TUBE TOP SCH ×2 (09:25→21:28)
[2020-03-09] MEDS: TWOCAL HN 1,000 ML LIQUID PEG PRN (10:49)
[2020-03-09 13:03] VITALS: BP 114/62
--- NOTE | 2020-03-09 15:09 | NUR ---
JEY received a call from Beny at [facility], case management department, . Beny wanted to complete patient's annual follow-up. Beny stated that Beny will be faxing over a request for patient's care plan, and JEY provided fax number to this JEY, . JEY will follow-up with the requested information once JEY receives the fax.
[2020-03-09] MEDS: ACETAMINOPHEN 650 MG/20 ML UDC- SA PATIENTS-PAIN ONLY PEG SCH (16:02)
--- NOTE | 2020-03-09 16:37 | NUR ---
INTERDISCIPLINARY PLAN OF CARE CONFERENCE was held today. Patient's mother stated that she did not have any concerns and therefore did not feel the need to participate in the meeting. Dr. Caraballo and the Interdisciplinary team reviewed the current plan of care in detail. RN reported on the patient's medical condition. No major changes in patient's condition were reported by RN or by the other disciplines. See RN IDT conference notes. See also all other disciplines IDT notes and physician's progress notes for additional details.
[2020-03-09 19:59] VITALS: BP 99/63
[2020-03-10] MEDS: MIDODRINE 10 MG PEG SCH ×3 (05:02→21:44)
[2020-03-10] MEDS: BISACODYL 10 MG SUPP.RECT RC PRN (05:45)
[2020-03-10] MEDS: OMEPRAZOLE 20 MG CAPSULE.DR GT SCH (05:46)
[2020-03-10] MEDS: MULTIVIT, IRON, MIN NO. 8, FA TABLET GT SCH (05:47)
[2020-03-10 07:39] VITALS: BP 114/62
[2020-03-10] MEDS: Z GUARD REMEDY PASTE 57 GM TUBE TOP SCH ×2 (09:55→21:44)
[2020-03-10] MEDS: FERROUS SULFATE 330 MG/7.5 ML UDC- FOR SA ONLY GT SCH ×2 (09:55→21:43)
[2020-03-10] MEDS: PROTEIN SUPPLEMENT (PROSTAT) 30 ML LIQUID PEG SCH ×2 (09:55→21:43)
[2020-03-10] MEDS: NUTRISOURCE FIBER 4 GM PACKET PEG SCH ×2 (09:55→21:43)
[2020-03-10] MEDS: TIZANIDINE HCL 4 MG TABLET PEG SCH ×2 (09:55→16:47)
[2020-03-10] MEDS: DOCUSATE SODIUM 100 MG/10 ML LIQUID UDC GT SCH (09:55)
[2020-03-10] MEDS: HYDROGEN PEROXIDE 3% 118 ML BOTTLE TP SCH ×2 (10:00→21:39)
--- NOTE | 2020-03-10 14:30 | NUR ---
PT. WAS SEEN AND EXAMINED BY DR. LYNNE AND WITH NNO.
--- NOTE | 2020-03-10 16:13 | NUR ---
JEY received via fax from patient's insurance, [employer], requesting the following information for patient's annual review: list of current medications current custodial care facility care plan JEY faxed the requested information to the [employer] case management department at [phone] (fax #).
[2020-03-10] MEDS: ACETAMINOPHEN 650 MG/20 ML UDC- SA PATIENTS-PAIN ONLY PEG SCH (16:46)
[2020-03-10 20:00] VITALS: BP 101/48
[2020-03-11] MEDS: TWOCAL HN 1,000 ML LIQUID PEG PRN (02:23)
[2020-03-11] MEDS: MIDODRINE 10 MG PEG SCH ×3 (06:09→22:00)
[2020-03-11] MEDS: OMEPRAZOLE 20 MG CAPSULE.DR GT SCH (06:09)
[2020-03-11 07:55] VITALS: BP 119/60
[2020-03-11] MEDS: FERROUS SULFATE 330 MG/7.5 ML UDC- FOR SA ONLY GT SCH ×2 (08:58→20:58)
[2020-03-11] MEDS: DOCUSATE SODIUM 100 MG/10 ML LIQUID UDC GT SCH (08:58)
[2020-03-11] MEDS: PROTEIN SUPPLEMENT (PROSTAT) 30 ML LIQUID PEG SCH ×2 (08:58→20:58)
[2020-03-11] MEDS: NUTRISOURCE FIBER 4 GM PACKET PEG SCH ×2 (08:58→20:58)
[2020-03-11] MEDS: TIZANIDINE HCL 4 MG TABLET PEG SCH ×2 (09:00→16:22)
[2020-03-11] MEDS: Z GUARD REMEDY PASTE 57 GM TUBE TOP SCH ×2 (09:00→20:58)
[2020-03-11] MEDS: HYDROGEN PEROXIDE 3% 118 ML BOTTLE TP SCH ×2 (10:00→21:07)
--- NOTE | 2020-03-11 13:31 | NUR ---
SPOKE WITH [employer], DEMETRICE RAMACHANDRAN, REGARDING COVID-19 VACCINE ADMINISTRATION. VERBAL CONSENT GIVEN BY DEMETRICE RAMACHANDRAN FOR PATIENT TO RECEIVE COVID-19 VACCINE.
[2020-03-11] MEDS: ACETAMINOPHEN 650 MG/20 ML UDC- SA PATIENTS-PAIN ONLY PEG SCH (16:21)
[2020-03-11 20:15] VITALS: BP 98/62
[2020-03-12] MEDS: MULTIVIT, IRON, MIN NO. 8, FA TABLET GT SCH (06:08)
[2020-03-12] MEDS: MIDODRINE 10 MG PEG SCH ×3 (06:08→22:33)
[2020-03-12] MEDS: OMEPRAZOLE 20 MG CAPSULE.DR GT SCH (06:08)
[2020-03-12 08:24] VITALS: BP 106/69
[2020-03-12] MEDS: HYDROGEN PEROXIDE 3% 118 ML BOTTLE TP SCH ×2 (09:02→21:59)
[2020-03-12] MEDS: DOCUSATE SODIUM 100 MG/10 ML LIQUID UDC GT SCH (09:49)
[2020-03-12] MEDS: FERROUS SULFATE 330 MG/7.5 ML UDC- FOR SA ONLY GT SCH ×2 (09:49→20:45)
[2020-03-12] MEDS: PROTEIN SUPPLEMENT (PROSTAT) 30 ML LIQUID PEG SCH ×2 (09:50→20:45)
[2020-03-12] MEDS: NUTRISOURCE FIBER 4 GM PACKET PEG SCH ×2 (09:50→20:45)
[2020-03-12] MEDS: TIZANIDINE HCL 4 MG TABLET PEG SCH ×2 (09:51→17:44)
[2020-03-12] MEDS: Z GUARD REMEDY PASTE 57 GM TUBE TOP SCH ×2 (09:51→20:45)
--- NOTE | 2020-03-12 11:30 | NUR ---
SEEN BY DR. LYNNE AND NNO.
[2020-03-12] MEDS: ACETAMINOPHEN 650 MG/20 ML UDC- SA PATIENTS-PAIN ONLY PEG SCH (17:44)
[2020-03-12] MEDS: TWOCAL HN 1,000 ML LIQUID PEG PRN (17:45)
[2020-03-12 19:30] VITALS: BP 105/69
[2020-03-13] MEDS: MIDODRINE 10 MG PEG SCH ×3 (06:22→21:20)
[2020-03-13] MEDS: OMEPRAZOLE 20 MG CAPSULE.DR GT SCH (06:22)
[2020-03-13 06:57] VITALS: BP 101/62
[2020-03-13] MEDS: HYDROGEN PEROXIDE 3% 118 ML BOTTLE TP SCH ×2 (07:44→21:13)
[2020-03-13 07:49] VITALS: BP 102/68
[2020-03-13] MEDS: NUTRISOURCE FIBER 4 GM PACKET PEG SCH ×2 (08:55→20:19)
[2020-03-13] MEDS: PROTEIN SUPPLEMENT (PROSTAT) 30 ML LIQUID PEG SCH ×2 (08:55→20:19)
[2020-03-13] MEDS: DOCUSATE SODIUM 100 MG/10 ML LIQUID UDC GT SCH (08:55)
[2020-03-13] MEDS: FERROUS SULFATE 330 MG/7.5 ML UDC- FOR SA ONLY GT SCH ×2 (08:55→20:19)
[2020-03-13] MEDS: TIZANIDINE HCL 4 MG TABLET PEG SCH ×2 (08:55→16:14)
[2020-03-13] MEDS: Z GUARD REMEDY PASTE 57 GM TUBE TOP SCH ×2 (08:55→20:19)
[2020-03-13] MEDS: ACETAMINOPHEN 650 MG/20 ML UDC- SA PATIENTS-PAIN ONLY PEG SCH (16:14)
--- NOTE | 2020-03-13 17:52 | NUR ---
PT'S MOTHER DEMETRICE WAS AWARE OF COVID 19 TEST IS NEGATIVE FROM 03/11/20.
[2020-03-13 20:00] VITALS: BP 106/62
[2020-03-14] MEDS: MIDODRINE 10 MG PEG SCH ×3 (05:30→21:01)
[2020-03-14] MEDS: OMEPRAZOLE 20 MG CAPSULE.DR GT SCH (05:30)
[2020-03-14] MEDS: MULTIVIT, IRON, MIN NO. 8, FA TABLET GT SCH (05:31)
[2020-03-14] MEDS: BISACODYL 10 MG SUPP.RECT RC PRN (06:25)
--- NOTE | 2020-03-14 06:25 | NUR ---
RESIDENT NOTED WITH NO BM X3 DAYS. ADMINISTERED DUCOLAX SUPPOSITORY ORDERED
[2020-03-14 07:54] VITALS: BP 105/61
[2020-03-14] MEDS: Z GUARD REMEDY PASTE 57 GM TUBE TOP SCH ×2 (08:10→20:19)
[2020-03-14] MEDS: PROTEIN SUPPLEMENT (PROSTAT) 30 ML LIQUID PEG SCH ×2 (08:10→20:19)
[2020-03-14] MEDS: TIZANIDINE HCL 4 MG TABLET PEG SCH ×2 (08:10→16:15)
[2020-03-14] MEDS: DOCUSATE SODIUM 100 MG/10 ML LIQUID UDC GT SCH (08:10)
[2020-03-14] MEDS: FERROUS SULFATE 330 MG/7.5 ML UDC- FOR SA ONLY GT SCH ×2 (08:10→20:19)
[2020-03-14] MEDS: NUTRISOURCE FIBER 4 GM PACKET PEG SCH ×2 (08:10→20:19)
[2020-03-14] MEDS: HYDROGEN PEROXIDE 3% 118 ML BOTTLE TP SCH ×2 (09:23→20:45)
[2020-03-14] MEDS: TWOCAL HN 1,000 ML LIQUID PEG PRN (11:04)
[2020-03-14] MEDS: ACETAMINOPHEN 650 MG/20 ML UDC- SA PATIENTS-PAIN ONLY PEG SCH (16:15)
[2020-03-14 20:45] VITALS: BP 93/55
[2020-03-15] MEDS: MIDODRINE 10 MG PEG SCH ×3 (05:33→21:16)
[2020-03-15] MEDS: OMEPRAZOLE 20 MG CAPSULE.DR GT SCH (05:33)
[2020-03-15 07:49] VITALS: BP 97/54
[2020-03-15] MEDS: DOCUSATE SODIUM 100 MG/10 ML LIQUID UDC GT SCH (08:25)
[2020-03-15] MEDS: FERROUS SULFATE 330 MG/7.5 ML UDC- FOR SA ONLY GT SCH ×2 (08:25→21:15)
[2020-03-15] MEDS: NUTRISOURCE FIBER 4 GM PACKET PEG SCH ×2 (08:26→21:15)
[2020-03-15] MEDS: PROTEIN SUPPLEMENT (PROSTAT) 30 ML LIQUID PEG SCH ×2 (08:26→21:15)
[2020-03-15] MEDS: Z GUARD REMEDY PASTE 57 GM TUBE TOP SCH ×2 (08:26→21:15)
[2020-03-15] MEDS: TIZANIDINE HCL 4 MG TABLET PEG SCH ×2 (08:26→17:25)
[2020-03-15] MEDS: HYDROGEN PEROXIDE 3% 118 ML BOTTLE TP SCH ×2 (09:00→21:53)
[2020-03-15 13:21] VITALS: BP 103/66
--- NOTE | 2020-03-15 16:00 | NUR ---
Video chat done with pt's mother.
[2020-03-15] MEDS: ACETAMINOPHEN 650 MG/20 ML UDC- SA PATIENTS-PAIN ONLY PEG SCH (17:25)
[2020-03-15 20:48] VITALS: BP 118/58
[2020-03-16] MEDS: OMEPRAZOLE 20 MG CAPSULE.DR GT SCH (05:14)
[2020-03-16] MEDS: TWOCAL HN 1,000 ML LIQUID PEG PRN (05:15)
[2020-03-16] MEDS: MIDODRINE 10 MG PEG SCH ×3 (05:15→22:15)
[2020-03-16] MEDS: MULTIVIT, IRON, MIN NO. 8, FA TABLET GT SCH (05:31)
[2020-03-16] MEDS: HYDROGEN PEROXIDE 3% 118 ML BOTTLE TP SCH ×2 (07:33→21:45)
[2020-03-16 07:56] VITALS: BP 111/71
[2020-03-16] MEDS: DOCUSATE SODIUM 100 MG/10 ML LIQUID UDC GT SCH (08:36)
[2020-03-16] MEDS: PROTEIN SUPPLEMENT (PROSTAT) 30 ML LIQUID PEG SCH ×2 (08:36→20:40)
[2020-03-16] MEDS: FERROUS SULFATE 330 MG/7.5 ML UDC- FOR SA ONLY GT SCH ×2 (08:36→20:39)
[2020-03-16] MEDS: NUTRISOURCE FIBER 4 GM PACKET PEG SCH ×2 (08:36→20:39)
[2020-03-16] MEDS: Z GUARD REMEDY PASTE 57 GM TUBE TOP SCH ×2 (08:37→20:40)
[2020-03-16] MEDS: TIZANIDINE HCL 4 MG TABLET PEG SCH ×2 (08:37→17:54)
[2020-03-16] MEDS: ACETAMINOPHEN 650 MG/20 ML UDC- SA PATIENTS-PAIN ONLY PEG SCH (17:54)
--- NOTE | 2020-03-16 18:57 | NUR ---
Video chat provided with the pt and family(mother). No complaints at this time.
[2020-03-16 19:48] VITALS: BP 91/55
--- NOTE | 2020-03-16 19:53 | NUR ---
New orders to Give COVID vaccine x 1 carried out.
[2020-03-17] MEDS: OMEPRAZOLE 20 MG CAPSULE.DR GT SCH (05:22)
[2020-03-17] MEDS: MIDODRINE 10 MG PEG SCH ×3 (05:23→22:10)
[2020-03-17 07:53] VITALS: BP 98/60
[2020-03-17] MEDS: FERROUS SULFATE 330 MG/7.5 ML UDC- FOR SA ONLY GT SCH ×2 (09:57→21:00)
[2020-03-17] MEDS: NUTRISOURCE FIBER 4 GM PACKET PEG SCH ×2 (09:57→21:00)
[2020-03-17] MEDS: PROTEIN SUPPLEMENT (PROSTAT) 30 ML LIQUID PEG SCH ×2 (09:57→21:00)
[2020-03-17] MEDS: DOCUSATE SODIUM 100 MG/10 ML LIQUID UDC GT SCH (09:57)
[2020-03-17] MEDS: Z GUARD REMEDY PASTE 57 GM TUBE TOP SCH ×2 (09:57→21:00)
[2020-03-17] MEDS: TIZANIDINE HCL 4 MG TABLET PEG SCH ×2 (09:57→16:52)
[2020-03-17] MEDS: HYDROGEN PEROXIDE 3% 118 ML BOTTLE TP SCH ×2 (10:09→21:45)
[2020-03-17] MEDS: ACETAMINOPHEN 650 MG/20 ML UDC- SA PATIENTS-PAIN ONLY PEG SCH (16:52)
--- NOTE | 2020-03-17 18:00 | NUR ---
Covid vaccine was given,no adverse reaction noted,pt's mother Morena notified.
[2020-03-17 20:09] VITALS: BP 125/81
[2020-03-17 20:17] VITALS: BP 94/53
[~2020-03-18] VITALS: Ht 170.2 cm; Wt 62.6 kg
[2020-03-18] MEDS: TWOCAL HN 1,000 ML LIQUID PEG PRN (02:00)
[2020-03-18] MEDS: OMEPRAZOLE 20 MG CAPSULE.DR GT SCH (05:51)
[2020-03-18] MEDS: MIDODRINE 10 MG PEG SCH ×3 (05:51→22:41)
[2020-03-18] MEDS: MULTIVIT, IRON, MIN NO. 8, FA TABLET GT SCH (05:52)
--- NOTE | 2020-03-18 05:54 | NUR ---
No noted side effects from covid vaccine
[2020-03-18 07:53] VITALS: BP 90/54
[2020-03-18] MEDS: HYDROGEN PEROXIDE 3% 118 ML BOTTLE TP SCH ×2 (09:00→18:43)
[2020-03-18] MEDS: TIZANIDINE HCL 4 MG TABLET PEG SCH ×2 (09:17→16:32)
[2020-03-18] MEDS: PROTEIN SUPPLEMENT (PROSTAT) 30 ML LIQUID PEG SCH ×2 (09:17→20:26)
[2020-03-18] MEDS: Z GUARD REMEDY PASTE 57 GM TUBE TOP SCH ×2 (09:17→20:26)
[2020-03-18] MEDS: FERROUS SULFATE 330 MG/7.5 ML UDC- FOR SA ONLY GT SCH ×2 (09:17→20:26)
[2020-03-18] MEDS: NUTRISOURCE FIBER 4 GM PACKET PEG SCH ×2 (09:17→20:26)
[2020-03-18] MEDS: DOCUSATE SODIUM 100 MG/10 ML LIQUID UDC GT SCH (09:17)
[2020-03-18 14:24] VITALS: BP 93/54
--- NOTE | 2020-03-18 15:30 | NUR ---
zoom provided for patient with mother.
[2020-03-18] MEDS: ACETAMINOPHEN 650 MG/20 ML UDC- SA PATIENTS-PAIN ONLY PEG SCH (16:32)
--- NOTE | 2020-03-18 18:34 | NUR ---
No side effects noted from covid vaccine.
[2020-03-18] MEDS: BISACODYL 10 MG SUPP.RECT RC PRN (18:59)
[2020-03-18 19:54] VITALS: BP 92/51
[~2020-03-18 23:59] MED LIST: ACET-2154 GT; ACETAMINOPHEN 650 MG/20 ML UDC- SA PATIENTS-FEVER ONLY PEG PRN; ALBU2.5V38 IH; ALBUTEROL SULFATE 2.5 MG/ 0.5 ML NEBU NEB PRN; COVID-19 VACC,MRNA(MODERNA)/PF 100 MCG/0.5 ML VIAL IM ONE; FERR325T28 GT; HYDROGEN PEROXIDE 3% 118 ML BOTTLE TP PRN; INFLUENZA VACCINE 2020-2021 0.5 ML DISP.SYRIN IM ONE; IPRA3AMP22 IH; IPRATROPIUM BROMIDE 0.5 MG/2.5 ML NEBU NEB PRN; MIDO5TAB4 GT; MULT-594 GT; TIZA6CAP GT; TUBERCULIN,PURIF.PROT.DERIV. 5 TU/0.1 ML TEST ID ONE; Z GUARD REMEDY PASTE 57 GM TUBE TOP PRN
--- NOTE | 2020-03-19 03:38 | NUR ---
Patient is afebrile, no signs of any adverse reactions noted from the COVID-19 vaccine.
[2020-03-19 05:43] VITALS: BP 100/60
[2020-03-19] MEDS: OMEPRAZOLE 20 MG CAPSULE.DR GT SCH (05:44)
[2020-03-19] MEDS: MIDODRINE 10 MG PEG SCH ×3 (05:44→21:56)
[2020-03-19 07:45] VITALS: BP 99/56
[2020-03-19] MEDS: FERROUS SULFATE 330 MG/7.5 ML UDC- FOR SA ONLY GT SCH ×2 (08:34→21:56)
[2020-03-19] MEDS: DOCUSATE SODIUM 100 MG/10 ML LIQUID UDC GT SCH (08:34)
[2020-03-19] MEDS: NUTRISOURCE FIBER 4 GM PACKET PEG SCH ×2 (08:34→21:56)
[2020-03-19] MEDS: PROTEIN SUPPLEMENT (PROSTAT) 30 ML LIQUID PEG SCH ×2 (08:35→21:56)
[2020-03-19] MEDS: TIZANIDINE HCL 4 MG TABLET PEG SCH ×2 (08:35→17:00)
[2020-03-19] MEDS: Z GUARD REMEDY PASTE 57 GM TUBE TOP SCH ×2 (08:36→21:56)
[2020-03-19] MEDS: HYDROGEN PEROXIDE 3% 118 ML BOTTLE TP SCH ×2 (09:00→21:50)
[2020-03-19] MEDS: ACETAMINOPHEN 650 MG/20 ML UDC- SA PATIENTS-PAIN ONLY PEG SCH (17:00)
--- NOTE | 2020-03-19 18:46 | NUR ---
Video call provided with pt. and family (mother). No complaints at this time. Pt. is afebrile. No s/s of any adverse reaction noted from covid-19 vaccine. Will continue to monitor
[2020-03-19 20:30] VITALS: BP 103/57
--- NOTE | 2020-03-19 23:17 | NUR ---
Patient is afebrile, no signs of adverse reaction from Covid-19 vaccine.
[2020-03-20] MEDS: OMEPRAZOLE 20 MG CAPSULE.DR GT SCH (05:11)
[2020-03-20] MEDS: MIDODRINE 10 MG PEG SCH ×3 (05:11→21:52)
[2020-03-20 05:12] VITALS: BP 102/57
[2020-03-20] MEDS: MULTIVIT, IRON, MIN NO. 8, FA TABLET GT SCH (05:33)
[2020-03-20] MEDS: BISACODYL 10 MG SUPP.RECT RC PRN (06:32)
[2020-03-20 07:46] VITALS: BP_SYST 64
[2020-03-20] MEDS: PROTEIN SUPPLEMENT (PROSTAT) 30 ML LIQUID PEG SCH ×2 (08:12→21:52)
[2020-03-20] MEDS: NUTRISOURCE FIBER 4 GM PACKET PEG SCH ×2 (08:12→21:52)
[2020-03-20] MEDS: DOCUSATE SODIUM 100 MG/10 ML LIQUID UDC GT SCH (08:12)
[2020-03-20] MEDS: FERROUS SULFATE 330 MG/7.5 ML UDC- FOR SA ONLY GT SCH ×2 (08:12→21:52)
[2020-03-20] MEDS: TIZANIDINE HCL 4 MG TABLET PEG SCH ×2 (08:13→17:04)
[2020-03-20] MEDS: Z GUARD REMEDY PASTE 57 GM TUBE TOP SCH ×2 (08:13→21:52)
[2020-03-20] MEDS: HYDROGEN PEROXIDE 3% 118 ML BOTTLE TP SCH ×2 (09:00→21:00)
[2020-03-20] MEDS: ACETAMINOPHEN 650 MG/20 ML UDC- SA PATIENTS-PAIN ONLY PEG SCH (17:04)
--- NOTE | 2020-03-20 18:40 | NUR ---
no rashes or adverse reaction from moderna covid vaccine observed.
[2020-03-20 20:01] VITALS: BP 104/54
[2020-03-21] MEDS: TWOCAL HN 1,000 ML LIQUID PEG PRN (03:40)
[2020-03-21] MEDS: MIDODRINE 10 MG PEG SCH ×3 (05:10→21:19)
[2020-03-21] MEDS: OMEPRAZOLE 20 MG CAPSULE.DR GT SCH (05:10)
[2020-03-21 05:11] VITALS: BP 94/53
[2020-03-21 08:18] VITALS: BP 91/53
[2020-03-21] MEDS: DOCUSATE SODIUM 100 MG/10 ML LIQUID UDC GT SCH (09:47)
[2020-03-21] MEDS: FERROUS SULFATE 330 MG/7.5 ML UDC- FOR SA ONLY GT SCH ×2 (09:47→21:18)
[2020-03-21] MEDS: NUTRISOURCE FIBER 4 GM PACKET PEG SCH ×2 (09:48→21:18)
[2020-03-21] MEDS: TIZANIDINE HCL 4 MG TABLET PEG SCH ×2 (09:48→17:28)
[2020-03-21] MEDS: Z GUARD REMEDY PASTE 57 GM TUBE TOP SCH ×2 (09:48→21:19)
[2020-03-21] MEDS: PROTEIN SUPPLEMENT (PROSTAT) 30 ML LIQUID PEG SCH ×2 (09:48→21:18)
[2020-03-21] MEDS: HYDROGEN PEROXIDE 3% 118 ML BOTTLE TP SCH ×2 (09:50→21:40)
[2020-03-21] MEDS: ACETAMINOPHEN 650 MG/20 ML UDC- SA PATIENTS-PAIN ONLY PEG SCH (17:28)
--- NOTE | 2020-03-21 17:51 | NUR ---
Seen and examined by Dr Wu,no new orders noted.
[2020-03-21 22:00] VITALS: BP 84/46
[2020-03-22] MEDS: MULTIVIT, IRON, MIN NO. 8, FA TABLET GT SCH (05:56)
[2020-03-22] MEDS: MIDODRINE 10 MG PEG SCH (05:56)
[2020-03-22] MEDS: OMEPRAZOLE 20 MG CAPSULE.DR GT SCH (05:56)
[2020-03-22 07:00] VITALS: BP 110/62
[2020-03-22 07:50] VITALS: BP 100/61
[2020-03-22 20:18] VITALS: BP 91/56
== END | disposition still patient (30) | DRG 189 ==
LOC: SA 03-19
PROVIDERS: ADMIT Specialist; ATTEND Specialist
DX: J96.10 Chronic respiratory failure, unspecified whether with hypoxia or hypercapnia (principal); R53.2 Functional quadriplegia; R40.3 Persistent vegetative state; R47.01 Aphasia; G93.1 Anoxic brain damage, not elsewhere classified; Z93.0 Tracheostomy status; Z86.74 Personal history of sudden cardiac arrest; R13.10 Dysphagia, unspecified; S12.000S Unspecified displaced fracture of first cervical vertebra, sequela; S12.100S Unspecified displaced fracture of second cervical vertebra, sequela; S12.200S Unspecified displaced fracture of third cervical vertebra, sequela; S12.300S Unspecified displaced fracture of fourth cervical vertebra, sequela; V89.2XXS Person injured in unspecified motor-vehicle accident, traffic, sequela; Z93.1 Gastrostomy status; Z87.820 Personal history of traumatic brain injury; K21.9 Gastro-esophageal reflux disease without esophagitis; M24.50 Contracture, unspecified joint; I25.10 Atherosclerotic heart disease of native coronary artery without angina pectoris; Z87.440 Personal history of urinary (tract) infections; D64.9 Anemia, unspecified; D69.6 Thrombocytopenia, unspecified; K59.00 Constipation, unspecified; Z88.0 Allergy status to penicillin; Z88.5 Allergy status to narcotic agent
CPT/HCPCS: 36415; 71045; 83550; 85025; 86580; 87086; 90686; A4663; C1758; G0008; Q0163; U0003

== ENCOUNTER 2020-03-19 | Inpatient (IN) | payer OTHER, MEDICARE ==
[~2020-03-19] VITALS: Ht 170.2 cm; Wt 63.1 kg
[~2020-03-19] MED LIST changes: -ACETAMINOPHEN 650 MG/20 ML UDC- SA PATIENTS-FEVER ONLY PEG PRN; -ALBUTEROL SULFATE 2.5 MG/ 0.5 ML NEBU NEB PRN; -COVID-19 VACC,MRNA(MODERNA)/PF 100 MCG/0.5 ML VIAL IM ONE; -HYDROGEN PEROXIDE 3% 118 ML BOTTLE TP PRN; -INFLUENZA VACCINE 2020-2021 0.5 ML DISP.SYRIN IM ONE; -IPRATROPIUM BROMIDE 0.5 MG/2.5 ML NEBU NEB PRN; -TUBERCULIN,PURIF.PROT.DERIV. 5 TU/0.1 ML TEST ID ONE; -Z GUARD REMEDY PASTE 57 GM TUBE TOP PRN
[2020-03-21] MEDS ORDERED: TWOCAL HN 1,000 ML LIQUID GT PRN (03:45)
[2020-03-22 08:00] VITALS: BP 100/61
[2020-03-22] MEDS ORDERED: HYDROGEN PEROXIDE 3% 118 ML BOTTLE TP PRN (10:15)
[2020-03-22] MEDS ORDERED: Z GUARD REMEDY PASTE 57 GM TUBE TOP PRN (10:15)
[2020-03-22] MEDS ORDERED: ALBUTEROL SULFATE 2.5 MG/ 0.5 ML NEBU NEB PRN (10:15)
[2020-03-22] MEDS ORDERED: ACETAMINOPHEN 650 MG/20 ML UDC- SA PATIENTS-FEVER ONLY PEG PRN (10:15)
[2020-03-22] MEDS ORDERED: IPRATROPIUM BROMIDE 0.5 MG/2.5 ML NEBU NEB PRN (10:15)
[2020-03-22] MEDS ORDERED: TRIAMCINOLONE ACET 0.1% OINT 15 GM TUBE TP PRN (10:15)
[2020-03-22] MEDS ORDERED: POLYVINYL ALCOHOL OPHT DROPS 15 ML BOTTLE EACHEYE PRN (10:15)
[2020-03-22] MEDS: HYDROGEN PEROXIDE 3% 118 ML BOTTLE TP SCH (11:36)
[2020-03-22] MEDS: MIDODRINE 10 MG PEG SCH ×2 (14:00→21:22)
[2020-03-22] MEDS: ACETAMINOPHEN 650 MG/20 ML UDC- SA PATIENTS-PAIN ONLY PEG SCH (17:47)
[2020-03-22] MEDS: TIZANIDINE HCL 4 MG TABLET PEG SCH (17:47)
[2020-03-22] MEDS: TWOCAL HN 1,000 ML LIQUID PEG PRN (17:49)
[2020-03-22 20:23] VITALS: BP 91/56
[2020-03-22] MEDS: NUTRISOURCE FIBER 4 GM PACKET PEG SCH (21:21)
[2020-03-22] MEDS: FERROUS SULFATE 330 MG/7.5 ML UDC- FOR SA ONLY GT SCH (21:21)
[2020-03-22] MEDS: PROTEIN SUPPLEMENT (PROSTAT) 30 ML LIQUID PEG SCH (21:21)
[2020-03-22] MEDS: Z GUARD REMEDY PASTE 57 GM TUBE TOP SCH (21:22)
[2020-03-23] MEDS: OMEPRAZOLE 20 MG CAPSULE.DR GT SCH (05:43)
[2020-03-23] MEDS: MIDODRINE 10 MG PEG SCH ×3 (05:43→22:17)
[2020-03-23 07:02] VITALS: BP 107/61
[2020-03-23 07:42] VITALS: BP 102/59
[2020-03-23] MEDS: DOCUSATE SODIUM 100 MG/10 ML LIQUID UDC GT SCH (08:24)
[2020-03-23] MEDS: PROTEIN SUPPLEMENT (PROSTAT) 30 ML LIQUID PEG SCH ×2 (08:24→21:00)
[2020-03-23] MEDS: FERROUS SULFATE 330 MG/7.5 ML UDC- FOR SA ONLY GT SCH ×2 (08:24→21:00)
[2020-03-23] MEDS: TIZANIDINE HCL 4 MG TABLET PEG SCH ×2 (08:24→16:14)
[2020-03-23] MEDS: NUTRISOURCE FIBER 4 GM PACKET PEG SCH ×2 (08:24→21:00)
[2020-03-23] MEDS: Z GUARD REMEDY PASTE 57 GM TUBE TOP SCH ×2 (08:24→21:00)
[2020-03-23] MEDS: HYDROGEN PEROXIDE 3% 118 ML BOTTLE TP SCH ×2 (09:39→21:42)
[2020-03-23 14:55] VITALS: BP 104/57
[2020-03-23] MEDS: ACETAMINOPHEN 650 MG/20 ML UDC- SA PATIENTS-PAIN ONLY PEG SCH (16:14)
--- NOTE | 2020-03-23 16:51 | NUR ---
SW mailed patient's annual admission paperwork for review and signatures to patient's mother Morena The paperwork includes: Conditions of Admission, Patient Rights Acknowledgement, An Important Message from Medicare about your Rights, Documentation of Preferred Intensity of Care, Voluntary Prior Express Consent Form, Race and Ethnicity Patient Self-Identification, and the [facility] Agreement. SW included instructions to return completed and signed forms to this SW. Paperwork mailed to: [id number] [place], [place] [address]
[2020-03-23 20:34] VITALS: BP 84/52
[2020-03-24] MEDS: OMEPRAZOLE 20 MG CAPSULE.DR GT SCH (05:38)
[2020-03-24] MEDS: MULTIVIT, IRON, MIN NO. 8, FA TABLET GT SCH (05:38)
[2020-03-24] MEDS: MIDODRINE 10 MG PEG SCH ×3 (05:38→21:11)
[2020-03-24 07:42] VITALS: BP 104/65
[2020-03-24] MEDS: DOCUSATE SODIUM 100 MG/10 ML LIQUID UDC GT SCH (08:10)
[2020-03-24] MEDS: TIZANIDINE HCL 4 MG TABLET PEG SCH ×2 (08:11→17:32)
[2020-03-24] MEDS: PROTEIN SUPPLEMENT (PROSTAT) 30 ML LIQUID PEG SCH ×2 (08:11→21:10)
[2020-03-24] MEDS: FERROUS SULFATE 330 MG/7.5 ML UDC- FOR SA ONLY GT SCH ×2 (08:11→21:10)
[2020-03-24] MEDS: NUTRISOURCE FIBER 4 GM PACKET PEG SCH ×2 (08:11→21:10)
[2020-03-24] MEDS: Z GUARD REMEDY PASTE 57 GM TUBE TOP SCH ×2 (08:11→21:11)
[2020-03-24] MEDS: HYDROGEN PEROXIDE 3% 118 ML BOTTLE TP SCH ×2 (09:00→21:41)
[2020-03-24] MEDS: TWOCAL HN 1,000 ML LIQUID PEG PRN (14:57)
--- NOTE | 2020-03-24 16:00 | NUR ---
Video chat done with pt's mother.
[2020-03-24] MEDS: ACETAMINOPHEN 650 MG/20 ML UDC- SA PATIENTS-PAIN ONLY PEG SCH (17:32)
[2020-03-24 20:04] VITALS: BP 83/46
[2020-03-25] MEDS: OMEPRAZOLE 20 MG CAPSULE.DR GT SCH (06:05)
[2020-03-25] MEDS: MIDODRINE 10 MG PEG SCH ×3 (06:05→22:01)
[2020-03-25 07:44] VITALS: BP 95/56
[2020-03-25] MEDS: HYDROGEN PEROXIDE 3% 118 ML BOTTLE TP SCH ×2 (09:00→21:39)
[2020-03-25] MEDS: DOCUSATE SODIUM 100 MG/10 ML LIQUID UDC GT SCH (09:24)
[2020-03-25] MEDS: FERROUS SULFATE 330 MG/7.5 ML UDC- FOR SA ONLY GT SCH ×2 (09:24→21:00)
[2020-03-25] MEDS: PROTEIN SUPPLEMENT (PROSTAT) 30 ML LIQUID PEG SCH ×2 (09:25→21:00)
[2020-03-25] MEDS: TIZANIDINE HCL 4 MG TABLET PEG SCH ×2 (09:25→16:57)
[2020-03-25] MEDS: Z GUARD REMEDY PASTE 57 GM TUBE TOP SCH ×2 (09:25→21:00)
[2020-03-25] MEDS: NUTRISOURCE FIBER 4 GM PACKET PEG SCH ×2 (09:25→21:00)
--- NOTE | 2020-03-25 16:20 | NUR ---
zoom provided for patient with mother.
[2020-03-25] MEDS: ACETAMINOPHEN 650 MG/20 ML UDC- SA PATIENTS-PAIN ONLY PEG SCH (16:57)
[2020-03-25 19:18] VITALS: BP 101/56
[2020-03-26] MEDS: OMEPRAZOLE 20 MG CAPSULE.DR GT SCH (05:36)
[2020-03-26 05:37] VITALS: BP 98/59
[2020-03-26] MEDS: MIDODRINE 10 MG PEG SCH ×3 (05:37→21:22)
[2020-03-26] MEDS: MULTIVIT, IRON, MIN NO. 8, FA TABLET GT SCH (05:37)
[2020-03-26 07:33] VITALS: BP 106/62
[2020-03-26] MEDS: NUTRISOURCE FIBER 4 GM PACKET PEG SCH ×2 (08:30→20:12)
[2020-03-26] MEDS: DOCUSATE SODIUM 100 MG/10 ML LIQUID UDC GT SCH (08:30)
[2020-03-26] MEDS: FERROUS SULFATE 330 MG/7.5 ML UDC- FOR SA ONLY GT SCH ×2 (08:30→20:12)
[2020-03-26] MEDS: PROTEIN SUPPLEMENT (PROSTAT) 30 ML LIQUID PEG SCH ×2 (08:31→20:12)
[2020-03-26] MEDS: TIZANIDINE HCL 4 MG TABLET PEG SCH ×2 (08:31→17:06)
[2020-03-26] MEDS: Z GUARD REMEDY PASTE 57 GM TUBE TOP SCH ×2 (08:31→20:12)
[2020-03-26] MEDS: HYDROGEN PEROXIDE 3% 118 ML BOTTLE TP SCH ×2 (09:29→21:51)
[2020-03-26] MEDS: TWOCAL HN 1,000 ML LIQUID PEG PRN (11:18)
[2020-03-26] MEDS: ACETAMINOPHEN 650 MG/20 ML UDC- SA PATIENTS-PAIN ONLY PEG SCH (17:06)
[2020-03-26 19:51] VITALS: BP 109/54
--- NOTE | 2020-03-26 23:13 | NUR ---
Herberth from Lab called re: Patient Covid-19 result was negative.
[2020-03-27] MEDS: MIDODRINE 10 MG PEG SCH ×3 (05:15→21:28)
[2020-03-27] MEDS: OMEPRAZOLE 20 MG CAPSULE.DR GT SCH (05:15)
[2020-03-27 07:56] VITALS: BP 109/65
[2020-03-27] MEDS: DOCUSATE SODIUM 100 MG/10 ML LIQUID UDC GT SCH (08:03)
[2020-03-27] MEDS: NUTRISOURCE FIBER 4 GM PACKET PEG SCH ×2 (08:03→20:15)
[2020-03-27] MEDS: FERROUS SULFATE 330 MG/7.5 ML UDC- FOR SA ONLY GT SCH ×2 (08:03→20:15)
[2020-03-27] MEDS: TIZANIDINE HCL 4 MG TABLET PEG SCH ×2 (08:03→17:20)
[2020-03-27] MEDS: Z GUARD REMEDY PASTE 57 GM TUBE TOP SCH ×2 (08:03→20:15)
[2020-03-27] MEDS: PROTEIN SUPPLEMENT (PROSTAT) 30 ML LIQUID PEG SCH ×2 (08:03→20:15)
--- NOTE | 2020-03-27 08:57 | NUR ---
PT'S MOTHER WAS NOTIFIED RE: RESULT OF NEGATIVE COVID 19 TEST DONE ON 03/24/20.
[2020-03-27] MEDS: HYDROGEN PEROXIDE 3% 118 ML BOTTLE TP SCH ×2 (09:19→21:40)
[2020-03-27] MEDS: ACETAMINOPHEN 650 MG/20 ML UDC- SA PATIENTS-PAIN ONLY PEG SCH (17:20)
[2020-03-27 19:40] VITALS: BP 103/56
[2020-03-28] MEDS: TWOCAL HN 1,000 ML LIQUID PEG PRN (02:22)
[2020-03-28] MEDS: MULTIVIT, IRON, MIN NO. 8, FA TABLET GT SCH (05:45)
[2020-03-28] MEDS: MIDODRINE 10 MG PEG SCH ×3 (05:45→21:30)
[2020-03-28] MEDS: OMEPRAZOLE 20 MG CAPSULE.DR GT SCH (05:45)
[2020-03-28 07:40] VITALS: BP 115/63
[2020-03-28] MEDS: TIZANIDINE HCL 4 MG TABLET PEG SCH ×2 (09:09→17:46)
[2020-03-28] MEDS: Z GUARD REMEDY PASTE 57 GM TUBE TOP SCH ×2 (09:09→20:10)
[2020-03-28] MEDS: FERROUS SULFATE 330 MG/7.5 ML UDC- FOR SA ONLY GT SCH ×2 (09:09→20:10)
[2020-03-28] MEDS: NUTRISOURCE FIBER 4 GM PACKET PEG SCH ×2 (09:09→20:10)
[2020-03-28] MEDS: HYDROGEN PEROXIDE 3% 118 ML BOTTLE TP SCH ×2 (09:09→21:55)
[2020-03-28] MEDS: PROTEIN SUPPLEMENT (PROSTAT) 30 ML LIQUID PEG SCH ×2 (09:09→20:10)
[2020-03-28] MEDS: DOCUSATE SODIUM 100 MG/10 ML LIQUID UDC GT SCH (09:09)
--- NOTE | 2020-03-28 11:00 | NUR ---
SEEN BY DR. LYNNE AND WITH NNO.
[2020-03-28] MEDS: ACETAMINOPHEN 650 MG/20 ML UDC- SA PATIENTS-PAIN ONLY PEG SCH (17:46)
[2020-03-28 19:54] VITALS: BP 78/46
[2020-03-29] MEDS: OMEPRAZOLE 20 MG CAPSULE.DR GT SCH (05:25)
[2020-03-29] MEDS: MIDODRINE 10 MG PEG SCH ×3 (05:25→22:14)
[2020-03-29 07:37] VITALS: BP 109/59
[2020-03-29] MEDS: TIZANIDINE HCL 4 MG TABLET PEG SCH ×2 (09:23→17:11)
[2020-03-29] MEDS: PROTEIN SUPPLEMENT (PROSTAT) 30 ML LIQUID PEG SCH ×2 (09:23→21:00)
[2020-03-29] MEDS: DOCUSATE SODIUM 100 MG/10 ML LIQUID UDC GT SCH (09:23)
[2020-03-29] MEDS: FERROUS SULFATE 330 MG/7.5 ML UDC- FOR SA ONLY GT SCH ×2 (09:23→21:00)
[2020-03-29] MEDS: NUTRISOURCE FIBER 4 GM PACKET PEG SCH ×2 (09:23→21:00)
[2020-03-29] MEDS: Z GUARD REMEDY PASTE 57 GM TUBE TOP SCH ×2 (09:24→21:00)
[2020-03-29] MEDS: HYDROGEN PEROXIDE 3% 118 ML BOTTLE TP SCH ×2 (09:24→10:00)
[2020-03-29] MEDS: ACETAMINOPHEN 650 MG/20 ML UDC- SA PATIENTS-PAIN ONLY PEG SCH (17:11)
[2020-03-29 20:37] VITALS: BP 94/52
[2020-03-29 22:14] VITALS: BP 90/52
[2020-03-30] MEDS: TWOCAL HN 1,000 ML LIQUID PEG PRN (02:15)
[2020-03-30] MEDS: OMEPRAZOLE 20 MG CAPSULE.DR GT SCH (05:21)
[2020-03-30] MEDS: MULTIVIT, IRON, MIN NO. 8, FA TABLET GT SCH (05:21)
[2020-03-30] MEDS: MIDODRINE 10 MG PEG SCH ×3 (05:21→22:02)
[2020-03-30 05:22] VITALS: BP 90/66
[2020-03-30 07:30] VITALS: BP 104/61
[2020-03-30] MEDS: HYDROGEN PEROXIDE 3% 118 ML BOTTLE TP SCH ×2 (09:00→21:00)
[2020-03-30] MEDS: DOCUSATE SODIUM 100 MG/10 ML LIQUID UDC GT SCH (09:05)
[2020-03-30] MEDS: FERROUS SULFATE 330 MG/7.5 ML UDC- FOR SA ONLY GT SCH ×2 (09:06→21:00)
[2020-03-30] MEDS: TIZANIDINE HCL 4 MG TABLET PEG SCH ×2 (09:07→17:02)
[2020-03-30] MEDS: Z GUARD REMEDY PASTE 57 GM TUBE TOP SCH ×2 (09:07→21:00)
[2020-03-30] MEDS: NUTRISOURCE FIBER 4 GM PACKET PEG SCH ×2 (09:07→21:00)
[2020-03-30] MEDS: PROTEIN SUPPLEMENT (PROSTAT) 30 ML LIQUID PEG SCH ×2 (09:07→21:00)
[2020-03-30 13:06] VITALS: BP 90/62
--- NOTE | 2020-03-30 15:30 | NUR ---
video chat done with pt's mother.
[2020-03-30] MEDS: ACETAMINOPHEN 650 MG/20 ML UDC- SA PATIENTS-PAIN ONLY PEG SCH (17:02)
[2020-03-30 20:15] VITALS: BP 85/42
[2020-03-31 05:06] VITALS: BP 90/56
[2020-03-31] MEDS: OMEPRAZOLE 20 MG CAPSULE.DR GT SCH (05:43)
[2020-03-31] MEDS: MIDODRINE 10 MG PEG SCH ×3 (05:43→21:38)
[2020-03-31 07:36] VITALS: BP 91/55
[2020-03-31] MEDS: FERROUS SULFATE 330 MG/7.5 ML UDC- FOR SA ONLY GT SCH ×2 (08:30→21:38)
[2020-03-31] MEDS: DOCUSATE SODIUM 100 MG/10 ML LIQUID UDC GT SCH (08:30)
[2020-03-31] MEDS: PROTEIN SUPPLEMENT (PROSTAT) 30 ML LIQUID PEG SCH ×2 (08:30→21:38)
[2020-03-31] MEDS: NUTRISOURCE FIBER 4 GM PACKET PEG SCH ×2 (08:30→21:38)
[2020-03-31] MEDS: TIZANIDINE HCL 4 MG TABLET PEG SCH ×2 (08:30→17:01)
[2020-03-31] MEDS: Z GUARD REMEDY PASTE 57 GM TUBE TOP SCH ×2 (08:30→21:38)
[2020-03-31] MEDS: HYDROGEN PEROXIDE 3% 118 ML BOTTLE TP SCH ×2 (09:05→21:48)
[2020-03-31 13:01] VITALS: BP 101/60
--- NOTE | 2020-03-31 15:30 | NUR ---
video chat done with pt's mother.
[2020-03-31] MEDS: ACETAMINOPHEN 650 MG/20 ML UDC- SA PATIENTS-PAIN ONLY PEG SCH (17:01)
[2020-03-31] MEDS: TWOCAL HN 1,000 ML LIQUID PEG PRN (17:55)
--- NOTE | 2020-03-31 19:00 | NUR ---
Covid test done today,Left mesage to Morena olvera's mother.
[2020-03-31 20:20] VITALS: BP 83/49
[2020-04-01] MEDS: OMEPRAZOLE 20 MG CAPSULE.DR GT SCH (05:32)
[2020-04-01] MEDS: MIDODRINE 10 MG PEG SCH ×3 (05:32→22:06)
[2020-04-01] MEDS: MULTIVIT, IRON, MIN NO. 8, FA TABLET GT SCH (05:33)
[2020-04-01 05:36] VITALS: BP 101/58
[2020-04-01 07:31] VITALS: BP 117/61
[2020-04-01] MEDS: Z GUARD REMEDY PASTE 57 GM TUBE TOP SCH ×2 (09:00→21:00)
[2020-04-01] MEDS: PROTEIN SUPPLEMENT (PROSTAT) 30 ML LIQUID PEG SCH ×2 (09:00→21:00)
[2020-04-01] MEDS: NUTRISOURCE FIBER 4 GM PACKET PEG SCH ×2 (09:00→21:00)
[2020-04-01] MEDS: HYDROGEN PEROXIDE 3% 118 ML BOTTLE TP SCH ×2 (09:00→21:43)
[2020-04-01] MEDS: TIZANIDINE HCL 4 MG TABLET PEG SCH ×2 (09:00→17:56)
[2020-04-01] MEDS: FERROUS SULFATE 330 MG/7.5 ML UDC- FOR SA ONLY GT SCH ×2 (09:00→21:00)
[2020-04-01] MEDS: DOCUSATE SODIUM 100 MG/10 ML LIQUID UDC GT SCH (09:00)
[2020-04-01 13:11] VITALS: BP 115/63
[2020-04-01] MEDS: ACETAMINOPHEN 650 MG/20 ML UDC- SA PATIENTS-PAIN ONLY PEG SCH (17:56)
[2020-04-01 20:00] VITALS: BP 90/55
[2020-04-02 05:22] VITALS: BP 105/53
[2020-04-02] MEDS: OMEPRAZOLE 20 MG CAPSULE.DR GT SCH (05:22)
[2020-04-02] MEDS: MIDODRINE 10 MG PEG SCH ×3 (05:22→21:01)
[2020-04-02 07:33] VITALS: BP 105/66
[2020-04-02] MEDS: HYDROGEN PEROXIDE 3% 118 ML BOTTLE TP SCH ×2 (09:02→21:00)
[2020-04-02] MEDS: Z GUARD REMEDY PASTE 57 GM TUBE TOP SCH ×2 (09:12→21:01)
[2020-04-02] MEDS: FERROUS SULFATE 330 MG/7.5 ML UDC- FOR SA ONLY GT SCH ×2 (09:12→21:01)
[2020-04-02] MEDS: TIZANIDINE HCL 4 MG TABLET PEG SCH ×2 (09:12→17:44)
[2020-04-02] MEDS: DOCUSATE SODIUM 100 MG/10 ML LIQUID UDC GT SCH (09:12)
[2020-04-02] MEDS: NUTRISOURCE FIBER 4 GM PACKET PEG SCH ×2 (09:12→21:01)
[2020-04-02] MEDS: PROTEIN SUPPLEMENT (PROSTAT) 30 ML LIQUID PEG SCH ×2 (09:12→21:01)
[2020-04-02 14:00] VITALS: BP 114/61
--- NOTE | 2020-04-02 16:55 | NUR ---
SW received the annual paperwork back from patient's mother Morena. The paperwork was completed and signed by Morena. The paperwork includes: Conditions of Admission, Patient Rights Acknowledgement, An Important Message from Medicare about your Rights, Documentation of Preferred Intensity of Care, Voluntary Prior Express Consent Form, Race and Ethnicity Patient Self-Identification, and the [facility] Agreement. For previous assessment/quarterly information, see patient's previous chart #[id number].
[2020-04-02] MEDS: ACETAMINOPHEN 650 MG/20 ML UDC- SA PATIENTS-PAIN ONLY PEG SCH ×2 (17:44→18:44)
[2020-04-02 20:00] VITALS: BP 108/64
[2020-04-03] MEDS: OMEPRAZOLE 20 MG CAPSULE.DR GT SCH (05:27)
[2020-04-03] MEDS: MIDODRINE 10 MG PEG SCH ×3 (05:27→22:14)
[2020-04-03] MEDS: MULTIVIT, IRON, MIN NO. 8, FA TABLET GT SCH (05:31)
[2020-04-03 06:10] VITALS: BP 95/60
[2020-04-03 07:44] VITALS: BP 102/60
[2020-04-03] MEDS: HYDROGEN PEROXIDE 3% 118 ML BOTTLE TP SCH ×2 (09:00→21:00)
[2020-04-03] MEDS: TIZANIDINE HCL 4 MG TABLET PEG SCH ×2 (09:05→17:23)
[2020-04-03] MEDS: NUTRISOURCE FIBER 4 GM PACKET PEG SCH ×2 (09:05→20:31)
[2020-04-03] MEDS: DOCUSATE SODIUM 100 MG/10 ML LIQUID UDC GT SCH (09:05)
[2020-04-03] MEDS: FERROUS SULFATE 330 MG/7.5 ML UDC- FOR SA ONLY GT SCH ×2 (09:05→20:31)
[2020-04-03] MEDS: PROTEIN SUPPLEMENT (PROSTAT) 30 ML LIQUID PEG SCH ×2 (09:05→20:31)
[2020-04-03] MEDS: Z GUARD REMEDY PASTE 57 GM TUBE TOP SCH ×2 (09:06→20:31)
[2020-04-03] MEDS: ACETAMINOPHEN 650 MG/20 ML UDC- SA PATIENTS-PAIN ONLY PEG SCH (17:23)
--- NOTE | 2020-04-03 17:54 | NUR ---
Pt's mother Morena notified regarding ,Covid 19 test result negative,and pt has a superficial scratch on the L F/A,no tx needed.
[2020-04-03 22:07] VITALS: BP 95/53
[2020-04-04] MEDS: TWOCAL HN 1,000 ML LIQUID PEG PRN (02:16)
[2020-04-04 05:37] VITALS: BP 102/58
[2020-04-04] MEDS: MIDODRINE 10 MG PEG SCH ×3 (05:38→21:24)
[2020-04-04] MEDS: OMEPRAZOLE 20 MG CAPSULE.DR GT SCH (05:38)
[2020-04-04 07:47] VITALS: BP 105/62
[2020-04-04] MEDS: HYDROGEN PEROXIDE 3% 118 ML BOTTLE TP SCH ×2 (08:49→21:40)
[2020-04-04] MEDS ORDERED: NEOMY/BACITRAC/POLYMI OINT 28.35 GM TUBE TP SCH (09:00)
[2020-04-04] MEDS: FERROUS SULFATE 330 MG/7.5 ML UDC- FOR SA ONLY GT SCH ×2 (09:07→21:24)
[2020-04-04] MEDS: NUTRISOURCE FIBER 4 GM PACKET PEG SCH ×2 (09:07→21:24)
[2020-04-04] MEDS: DOCUSATE SODIUM 100 MG/10 ML LIQUID UDC GT SCH (09:07)
[2020-04-04] MEDS: TIZANIDINE HCL 4 MG TABLET PEG SCH ×2 (09:07→16:42)
[2020-04-04] MEDS: PROTEIN SUPPLEMENT (PROSTAT) 30 ML LIQUID PEG SCH ×2 (09:07→21:24)
[2020-04-04] MEDS: Z GUARD REMEDY PASTE 57 GM TUBE TOP SCH ×2 (09:08→21:24)
--- NOTE | 2020-04-04 16:21 | NUR ---
zoom provided to mother.
[2020-04-04] MEDS: ACETAMINOPHEN 650 MG/20 ML UDC- SA PATIENTS-PAIN ONLY PEG SCH (16:42)
[2020-04-04 22:19] VITALS: BP 98/60
[2020-04-05] MEDS: OMEPRAZOLE 20 MG CAPSULE.DR GT SCH (05:46)
[2020-04-05] MEDS: MULTIVIT, IRON, MIN NO. 8, FA TABLET GT SCH (05:46)
[2020-04-05] MEDS: MIDODRINE 10 MG PEG SCH ×3 (05:46→21:00)
[2020-04-05] MEDS: PROTEIN SUPPLEMENT (PROSTAT) 30 ML LIQUID PEG SCH ×2 (09:05→20:58)
[2020-04-05] MEDS: NUTRISOURCE FIBER 4 GM PACKET PEG SCH ×2 (09:05→20:58)
[2020-04-05] MEDS: TIZANIDINE HCL 4 MG TABLET PEG SCH ×2 (09:05→17:20)
[2020-04-05] MEDS: FERROUS SULFATE 330 MG/7.5 ML UDC- FOR SA ONLY GT SCH ×2 (09:05→20:58)
[2020-04-05] MEDS: DOCUSATE SODIUM 100 MG/10 ML LIQUID UDC GT SCH (09:05)
[2020-04-05] MEDS: Z GUARD REMEDY PASTE 57 GM TUBE TOP SCH ×2 (09:06→20:58)
[2020-04-05] MEDS: HYDROGEN PEROXIDE 3% 118 ML BOTTLE TP SCH ×2 (09:07→21:00)
[2020-04-05] MEDS: ACETAMINOPHEN 650 MG/20 ML UDC- SA PATIENTS-PAIN ONLY PEG SCH (17:19)
[2020-04-05 20:01] VITALS: BP 92/52
[2020-04-06] MEDS: TWOCAL HN 1,000 ML LIQUID PEG PRN (02:59)
[2020-04-06] MEDS: OMEPRAZOLE 20 MG CAPSULE.DR GT SCH (05:27)
[2020-04-06] MEDS: MIDODRINE 10 MG PEG SCH ×3 (05:27→21:40)
[2020-04-06 07:15] VITALS: BP 105/60
[2020-04-06] MEDS: HYDROGEN PEROXIDE 3% 118 ML BOTTLE TP SCH ×2 (09:03→21:40)
[2020-04-06] MEDS: TIZANIDINE HCL 4 MG TABLET PEG SCH ×2 (09:11→17:19)
[2020-04-06] MEDS: DOCUSATE SODIUM 100 MG/10 ML LIQUID UDC GT SCH (09:11)
[2020-04-06] MEDS: FERROUS SULFATE 330 MG/7.5 ML UDC- FOR SA ONLY GT SCH ×2 (09:11→21:40)
[2020-04-06] MEDS: PROTEIN SUPPLEMENT (PROSTAT) 30 ML LIQUID PEG SCH ×2 (09:11→21:40)
[2020-04-06] MEDS: Z GUARD REMEDY PASTE 57 GM TUBE TOP SCH ×2 (09:11→21:40)
[2020-04-06] MEDS: NUTRISOURCE FIBER 4 GM PACKET PEG SCH ×2 (09:11→21:40)
--- NOTE | 2020-04-06 13:58 | NUR ---
JEY informed patient's mother Morena, via email, that the next IDT meeting for the patient is scheduled for 04/13/2020 at 11am. JEY asked Morena to let this SW know if Mornea would like to participate in the meeting by speaker phone.
--- NOTE | 2020-04-06 15:30 | NUR ---
Provided video chat to pt. and her mother with no problem noted. Pt remains comfortable, all needs attended and anticipated.
--- NOTE | 2020-04-06 16:07 | NUR ---
JEY received an email response back from patient's mother Morena, stating that she will try to be available on 04/13 in order to participate in the IDT meeting. JEY asked Morena to be available between 11am-12pm to receive the team's call.
[2020-04-06] MEDS: ACETAMINOPHEN 650 MG/20 ML UDC- SA PATIENTS-PAIN ONLY PEG SCH (17:19)
[2020-04-06 19:58] VITALS: BP 91/53
[2020-04-07] MEDS: OMEPRAZOLE 20 MG CAPSULE.DR GT SCH (06:03)
[2020-04-07] MEDS: MULTIVIT, IRON, MIN NO. 8, FA TABLET GT SCH (06:03)
[2020-04-07] MEDS: MIDODRINE 10 MG PEG SCH ×3 (06:03→21:31)
[2020-04-07 07:17] VITALS: BP 121/61
[2020-04-07] MEDS: NUTRISOURCE FIBER 4 GM PACKET PEG SCH ×2 (08:51→21:30)
[2020-04-07] MEDS: FERROUS SULFATE 330 MG/7.5 ML UDC- FOR SA ONLY GT SCH ×2 (08:51→21:30)
[2020-04-07] MEDS: DOCUSATE SODIUM 100 MG/10 ML LIQUID UDC GT SCH (08:51)
[2020-04-07] MEDS: Z GUARD REMEDY PASTE 57 GM TUBE TOP SCH ×2 (08:51→21:30)
[2020-04-07] MEDS: PROTEIN SUPPLEMENT (PROSTAT) 30 ML LIQUID PEG SCH ×2 (08:51→21:30)
[2020-04-07] MEDS: TIZANIDINE HCL 4 MG TABLET PEG SCH ×2 (08:51→16:54)
[2020-04-07] MEDS: HYDROGEN PEROXIDE 3% 118 ML BOTTLE TP SCH ×2 (11:00→21:00)
--- NOTE | 2020-04-07 16:45 | NUR ---
Provided video chat to pt. and her mother with no problem noted, pt. remains comfortable, all needs attended and anticipated.
[2020-04-07] MEDS: ACETAMINOPHEN 650 MG/20 ML UDC- SA PATIENTS-PAIN ONLY PEG SCH (16:54)
--- NOTE | 2020-04-07 19:43 | NUR ---
Covid 19 test done today.Pt's mother Morena notified.
[2020-04-07 19:48] VITALS: BP 100/58
[2020-04-08] MEDS: MIDODRINE 10 MG PEG SCH ×3 (06:34→22:00)
[2020-04-08] MEDS: OMEPRAZOLE 20 MG CAPSULE.DR GT SCH (06:34)
[2020-04-08 07:50] VITALS: BP 100/69
[2020-04-08] MEDS: HYDROGEN PEROXIDE 3% 118 ML BOTTLE TP SCH ×2 (09:00→21:00)
[2020-04-08] MEDS: DOCUSATE SODIUM 100 MG/10 ML LIQUID UDC GT SCH (09:46)
[2020-04-08] MEDS: FERROUS SULFATE 330 MG/7.5 ML UDC- FOR SA ONLY GT SCH ×2 (09:46→21:00)
[2020-04-08] MEDS: Z GUARD REMEDY PASTE 57 GM TUBE TOP SCH ×2 (09:46→21:00)
[2020-04-08] MEDS: NUTRISOURCE FIBER 4 GM PACKET PEG SCH ×2 (09:46→21:00)
[2020-04-08] MEDS: TIZANIDINE HCL 4 MG TABLET PEG SCH ×2 (09:46→17:16)
[2020-04-08] MEDS: PROTEIN SUPPLEMENT (PROSTAT) 30 ML LIQUID PEG SCH ×2 (09:46→21:00)
--- NOTE | 2020-04-08 14:00 | NUR ---
Provide video chat to pt. and her mother with no problem noted, pt. remains comfortable, all needs attended and anticipated.
[2020-04-08] MEDS: ACETAMINOPHEN 650 MG/20 ML UDC- SA PATIENTS-PAIN ONLY PEG SCH (17:16)
[2020-04-08 19:53] VITALS: BP 114/73
[2020-04-09 05:40] VITALS: BP 110/70
[2020-04-09] MEDS: MIDODRINE 10 MG PEG SCH ×3 (05:40→21:50)
[2020-04-09] MEDS: MULTIVIT, IRON, MIN NO. 8, FA TABLET GT SCH (05:40)
[2020-04-09] MEDS: OMEPRAZOLE 20 MG CAPSULE.DR GT SCH (05:40)
[2020-04-09 07:40] VITALS: BP 103/63
[2020-04-09] MEDS: DOCUSATE SODIUM 100 MG/10 ML LIQUID UDC GT SCH (08:26)
[2020-04-09] MEDS: NUTRISOURCE FIBER 4 GM PACKET PEG SCH ×2 (08:27→21:50)
[2020-04-09] MEDS: TIZANIDINE HCL 4 MG TABLET PEG SCH ×2 (08:27→17:41)
[2020-04-09] MEDS: PROTEIN SUPPLEMENT (PROSTAT) 30 ML LIQUID PEG SCH ×2 (08:27→21:50)
[2020-04-09] MEDS: FERROUS SULFATE 330 MG/7.5 ML UDC- FOR SA ONLY GT SCH ×2 (08:27→21:50)
[2020-04-09] MEDS: Z GUARD REMEDY PASTE 57 GM TUBE TOP SCH ×2 (08:28→21:50)
[2020-04-09] MEDS: HYDROGEN PEROXIDE 3% 118 ML BOTTLE TP SCH ×2 (09:19→21:50)
[2020-04-09 14:10] VITALS: BP 98/62
[2020-04-09] MEDS: ACETAMINOPHEN 650 MG/20 ML UDC- SA PATIENTS-PAIN ONLY PEG SCH (17:41)
[2020-04-09 19:40] VITALS: BP 103/69
[2020-04-10] MEDS: TWOCAL HN 1,000 ML LIQUID PEG PRN (03:20)
[2020-04-10] MEDS: OMEPRAZOLE 20 MG CAPSULE.DR GT SCH (05:57)
[2020-04-10] MEDS: MIDODRINE 10 MG PEG SCH ×3 (05:57→21:48)
[2020-04-10 05:58] VITALS: BP 108/64
[2020-04-10 07:43] VITALS: BP 103/60
[2020-04-10] MEDS: FERROUS SULFATE 330 MG/7.5 ML UDC- FOR SA ONLY GT SCH ×2 (09:14→21:47)
[2020-04-10] MEDS: DOCUSATE SODIUM 100 MG/10 ML LIQUID UDC GT SCH (09:14)
[2020-04-10] MEDS: Z GUARD REMEDY PASTE 57 GM TUBE TOP SCH ×2 (09:15→21:48)
[2020-04-10] MEDS: PROTEIN SUPPLEMENT (PROSTAT) 30 ML LIQUID PEG SCH ×2 (09:15→21:48)
[2020-04-10] MEDS: TIZANIDINE HCL 4 MG TABLET PEG SCH ×2 (09:15→16:51)
[2020-04-10] MEDS: NUTRISOURCE FIBER 4 GM PACKET PEG SCH ×2 (09:15→21:47)
[2020-04-10 14:12] VITALS: BP 104/65
[2020-04-10] MEDS: ACETAMINOPHEN 650 MG/20 ML UDC- SA PATIENTS-PAIN ONLY PEG SCH (16:51)
[2020-04-10 19:53] VITALS: BP 126/73
[2020-04-10] MEDS: HYDROGEN PEROXIDE 3% 118 ML BOTTLE TP SCH (21:47)
[2020-04-11 05:33] VITALS: BP 108/64
[2020-04-11] MEDS: OMEPRAZOLE 20 MG CAPSULE.DR GT SCH (05:33)
[2020-04-11] MEDS: MULTIVIT, IRON, MIN NO. 8, FA TABLET GT SCH (05:33)
[2020-04-11] MEDS: MIDODRINE 10 MG PEG SCH ×3 (05:33→21:16)
[2020-04-11 07:39] VITALS: BP 109/64
[2020-04-11] MEDS: NUTRISOURCE FIBER 4 GM PACKET PEG SCH ×2 (08:57→21:16)
[2020-04-11] MEDS: FERROUS SULFATE 330 MG/7.5 ML UDC- FOR SA ONLY GT SCH ×2 (08:57→21:16)
[2020-04-11] MEDS: DOCUSATE SODIUM 100 MG/10 ML LIQUID UDC GT SCH (08:57)
[2020-04-11] MEDS: PROTEIN SUPPLEMENT (PROSTAT) 30 ML LIQUID PEG SCH ×2 (09:26→21:16)
[2020-04-11] MEDS: HYDROGEN PEROXIDE 3% 118 ML BOTTLE TP SCH ×2 (09:26→21:00)
[2020-04-11] MEDS: Z GUARD REMEDY PASTE 57 GM TUBE TOP SCH ×2 (09:26→21:16)
[2020-04-11] MEDS: TIZANIDINE HCL 4 MG TABLET PEG SCH ×2 (09:26→17:00)
[2020-04-11] MEDS: ACETAMINOPHEN 650 MG/20 ML UDC- SA PATIENTS-PAIN ONLY PEG SCH (17:00)
--- NOTE | 2020-04-11 18:34 | NUR ---
Video call provided with pt. and family(mother). No complaint at this time. Will continue to monitor pt.
[2020-04-11 20:09] VITALS: BP 99/61
[2020-04-12] MEDS: MIDODRINE 10 MG PEG SCH ×3 (05:00→22:00)
[2020-04-12] MEDS: OMEPRAZOLE 20 MG CAPSULE.DR GT SCH (05:00)
[2020-04-12] MEDS: TWOCAL HN 1,000 ML LIQUID PEG PRN (05:39)
[2020-04-12 07:25] VITALS: BP 109/73
[2020-04-12] MEDS: TIZANIDINE HCL 4 MG TABLET PEG SCH ×2 (09:00→16:04)
[2020-04-12] MEDS: NUTRISOURCE FIBER 4 GM PACKET PEG SCH ×2 (09:00→20:56)
[2020-04-12] MEDS: FERROUS SULFATE 330 MG/7.5 ML UDC- FOR SA ONLY GT SCH ×2 (09:00→20:56)
[2020-04-12] MEDS: DOCUSATE SODIUM 100 MG/10 ML LIQUID UDC GT SCH (09:00)
[2020-04-12] MEDS: PROTEIN SUPPLEMENT (PROSTAT) 30 ML LIQUID PEG SCH ×2 (09:00→20:56)
[2020-04-12] MEDS: Z GUARD REMEDY PASTE 57 GM TUBE TOP SCH ×2 (09:00→20:56)
[2020-04-12] MEDS: HYDROGEN PEROXIDE 3% 118 ML BOTTLE TP SCH ×2 (09:18→20:56)
[2020-04-12] MEDS: ACETAMINOPHEN 650 MG/20 ML UDC- SA PATIENTS-PAIN ONLY PEG SCH (16:04)
[2020-04-12 20:06] VITALS: BP 118/69
[2020-04-13] MEDS: OMEPRAZOLE 20 MG CAPSULE.DR GT SCH (05:23)
[2020-04-13] MEDS: MIDODRINE 10 MG PEG SCH ×3 (05:23→21:51)
[2020-04-13] MEDS: MULTIVIT, IRON, MIN NO. 8, FA TABLET GT SCH (05:24)
[2020-04-13 06:38] VITALS: BP 108/60
[2020-04-13 07:21] VITALS: BP 106/60
[2020-04-13] MEDS: TIZANIDINE HCL 4 MG TABLET PEG SCH ×2 (09:00→17:40)
[2020-04-13] MEDS: DOCUSATE SODIUM 100 MG/10 ML LIQUID UDC GT SCH (09:00)
[2020-04-13] MEDS: NUTRISOURCE FIBER 4 GM PACKET PEG SCH ×2 (09:00→21:51)
[2020-04-13] MEDS: FERROUS SULFATE 330 MG/7.5 ML UDC- FOR SA ONLY GT SCH ×2 (09:00→21:51)
[2020-04-13] MEDS: PROTEIN SUPPLEMENT (PROSTAT) 30 ML LIQUID PEG SCH ×2 (09:00→21:51)
[2020-04-13] MEDS: Z GUARD REMEDY PASTE 57 GM TUBE TOP SCH ×2 (09:00→21:51)
[2020-04-13] MEDS: HYDROGEN PEROXIDE 3% 118 ML BOTTLE TP SCH ×2 (09:43→21:00)
--- NOTE | 2020-04-13 13:58 | NUR ---
INTERDISCIPLINARY PLAN OF CARE CONFERENCE was held today. Patient's mother Morena was contacted by telephone during the meeting, but Morena was not available during the meeting today. Dr. Caraballo and the Interdisciplinary Team reviewed the current plan of care in detail. RN reported on patient's medical condition. See RN IDT conference notes. No major changes in medical condition were reported by nursing or by the other disciplines. See all other disciplines IDT notes and physician's progress notes for additional details.
--- NOTE | 2020-04-13 14:00 | NUR ---
Seen by Dr Wu ,no new orders noted.
[2020-04-13] MEDS: ACETAMINOPHEN 650 MG/20 ML UDC- SA PATIENTS-PAIN ONLY PEG SCH (17:40)
[2020-04-13 19:54] VITALS: BP 88/46
--- NOTE | 2020-04-14 03:00 | NUR ---
For Covid -19 test today per [facility] requirement.
[2020-04-14] MEDS: TWOCAL HN 1,000 ML LIQUID PEG PRN (03:08)
[2020-04-14] MEDS: OMEPRAZOLE 20 MG CAPSULE.DR GT SCH (05:35)
[2020-04-14] MEDS: MIDODRINE 10 MG PEG SCH ×3 (05:35→22:00)
[2020-04-14 05:36] VITALS: BP 95/63
[2020-04-14 07:41] VITALS: BP 94/36
[2020-04-14] MEDS: DOCUSATE SODIUM 100 MG/10 ML LIQUID UDC GT SCH (08:50)
[2020-04-14] MEDS: TIZANIDINE HCL 4 MG TABLET PEG SCH ×2 (08:50→17:34)
[2020-04-14] MEDS: PROTEIN SUPPLEMENT (PROSTAT) 30 ML LIQUID PEG SCH ×2 (08:50→20:06)
[2020-04-14] MEDS: FERROUS SULFATE 330 MG/7.5 ML UDC- FOR SA ONLY GT SCH ×2 (08:50→20:06)
[2020-04-14] MEDS: NUTRISOURCE FIBER 4 GM PACKET PEG SCH ×2 (08:50→20:06)
[2020-04-14] MEDS: Z GUARD REMEDY PASTE 57 GM TUBE TOP SCH ×2 (08:57→20:07)
[2020-04-14] MEDS: HYDROGEN PEROXIDE 3% 118 ML BOTTLE TP SCH ×2 (09:00→20:07)
[2020-04-14] MEDS ORDERED: COVID-19 VACC,MRNA(MODERNA)/PF 100 MCG/0.5 ML VIAL IM ONE (10:00)
--- NOTE | 2020-04-14 15:30 | NUR ---
2ND DOSE OF COVID VACCINE WAS ADMINISTERED TODAY AND COVID TEST WAS ALSO DONE TODAY, NO ADVERSE REACTION NOTED AT THIS TIME, PATIENT'S MOTHER DEMETRICE RESPONSIBLE DEMOCRAT AWARE. ZOOM TIME PROVIDED TO FAMILY
[2020-04-14] MEDS: ACETAMINOPHEN 650 MG/20 ML UDC- SA PATIENTS-PAIN ONLY PEG SCH (17:34)
[2020-04-14 19:53] VITALS: BP 103/63
--- NOTE | 2020-04-14 23:25 | NUR ---
Patient is afebrile, no adverse reactions from COVID-19 vaccine ( MODERNA), no signs of any distress noted, kept clean and comfortable, will continue monitor.
[2020-04-15] MEDS: MIDODRINE 10 MG PEG SCH ×3 (05:18→22:02)
[2020-04-15] MEDS: OMEPRAZOLE 20 MG CAPSULE.DR GT SCH (05:18)
[2020-04-15] MEDS: MULTIVIT, IRON, MIN NO. 8, FA TABLET GT SCH (06:02)
[2020-04-15 07:33] VITALS: BP 102/48
[2020-04-15] MEDS: Z GUARD REMEDY PASTE 57 GM TUBE TOP SCH ×2 (09:00→21:00)
[2020-04-15] MEDS: TIZANIDINE HCL 4 MG TABLET PEG SCH ×2 (09:00→17:42)
[2020-04-15] MEDS: NUTRISOURCE FIBER 4 GM PACKET PEG SCH ×2 (09:00→21:00)
[2020-04-15] MEDS: DOCUSATE SODIUM 100 MG/10 ML LIQUID UDC GT SCH (09:00)
[2020-04-15] MEDS: PROTEIN SUPPLEMENT (PROSTAT) 30 ML LIQUID PEG SCH ×2 (09:00→21:00)
[2020-04-15] MEDS: FERROUS SULFATE 330 MG/7.5 ML UDC- FOR SA ONLY GT SCH ×2 (09:00→21:00)
[2020-04-15] MEDS: HYDROGEN PEROXIDE 3% 118 ML BOTTLE TP SCH ×2 (09:21→21:38)
[2020-04-15] MEDS: ACETAMINOPHEN 650 MG/20 ML UDC- SA PATIENTS-PAIN ONLY PEG SCH (17:42)
[2020-04-15 19:50] VITALS: BP 95/52
--- NOTE | 2020-04-15 20:52 | NUR ---
S/P SECOND DOSE OF COVID-19 VACCINATION. NO ADVERSE REACTION NOTED WILL CONTINUE TO MONITOR.
[2020-04-16] MEDS: ACETAMINOPHEN 650 MG/20 ML UDC- SA PATIENTS-PAIN ONLY PEG PRN (01:00)
[2020-04-16] MEDS: MIDODRINE 10 MG PEG SCH ×3 (05:30→22:43)
[2020-04-16] MEDS: OMEPRAZOLE 20 MG CAPSULE.DR GT SCH (05:30)
--- NOTE | 2020-04-16 06:30 | NUR ---
Patient is afebrile, no adverse reactions from COVID-19 vaccine ( MODERNA), no signs of any distress noted, kept clean and comfortable.
[2020-04-16] MEDS: HYDROGEN PEROXIDE 3% 118 ML BOTTLE TP SCH ×2 (07:30→21:00)
[2020-04-16 07:42] VITALS: BP 111/56
[2020-04-16] MEDS: FERROUS SULFATE 330 MG/7.5 ML UDC- FOR SA ONLY GT SCH ×2 (09:06→21:00)
[2020-04-16] MEDS: NUTRISOURCE FIBER 4 GM PACKET PEG SCH ×2 (09:06→21:00)
[2020-04-16] MEDS: DOCUSATE SODIUM 100 MG/10 ML LIQUID UDC GT SCH (09:06)
[2020-04-16] MEDS: PROTEIN SUPPLEMENT (PROSTAT) 30 ML LIQUID PEG SCH ×2 (09:06→21:00)
[2020-04-16] MEDS: Z GUARD REMEDY PASTE 57 GM TUBE TOP SCH ×2 (09:08→21:00)
[2020-04-16] MEDS: TIZANIDINE HCL 4 MG TABLET PEG SCH ×2 (09:08→17:34)
[2020-04-16] MEDS: ACETAMINOPHEN 650 MG/20 ML UDC- SA PATIENTS-PAIN ONLY PEG SCH (17:35)
[2020-04-16 19:56] VITALS: BP 111/58
--- NOTE | 2020-04-17 04:40 | NUR ---
2nd Dose of COVID Vaccine ( MODERNA) given on 04/14/20, 98.6, no redness or swelling on the injection site, no signs of any distress, will continue monitor.
[2020-04-17] MEDS: MIDODRINE 10 MG PEG SCH ×3 (06:00→21:27)
[2020-04-17] MEDS: OMEPRAZOLE 20 MG CAPSULE.DR GT SCH (06:21)
[2020-04-17] MEDS: MULTIVIT, IRON, MIN NO. 8, FA TABLET GT SCH (06:22)
[2020-04-17 07:38] VITALS: BP 114/65
[2020-04-17] MEDS: TIZANIDINE HCL 4 MG TABLET PEG SCH ×2 (09:23→17:38)
[2020-04-17] MEDS: FERROUS SULFATE 330 MG/7.5 ML UDC- FOR SA ONLY GT SCH ×2 (09:23→21:26)
[2020-04-17] MEDS: NUTRISOURCE FIBER 4 GM PACKET PEG SCH ×2 (09:23→21:26)
[2020-04-17] MEDS: DOCUSATE SODIUM 100 MG/10 ML LIQUID UDC GT SCH (09:23)
[2020-04-17] MEDS: Z GUARD REMEDY PASTE 57 GM TUBE TOP SCH ×2 (09:23→21:27)
[2020-04-17] MEDS: PROTEIN SUPPLEMENT (PROSTAT) 30 ML LIQUID PEG SCH ×2 (09:23→21:26)
[2020-04-17] MEDS: ACETAMINOPHEN 650 MG/20 ML UDC- SA PATIENTS-PAIN ONLY PEG SCH (17:38)
[2020-04-17 20:00] VITALS: BP 108/66
[2020-04-17] MEDS: HYDROGEN PEROXIDE 3% 118 ML BOTTLE TP SCH (21:00)
[2020-04-18] MEDS: MIDODRINE 10 MG PEG SCH ×3 (05:47→21:15)
[2020-04-18] MEDS: OMEPRAZOLE 20 MG CAPSULE.DR GT SCH (05:47)
[2020-04-18 07:34] VITALS: BP 121/63
[2020-04-18] MEDS: DOCUSATE SODIUM 100 MG/10 ML LIQUID UDC GT SCH (09:22)
[2020-04-18] MEDS: Z GUARD REMEDY PASTE 57 GM TUBE TOP SCH ×2 (09:22→21:15)
[2020-04-18] MEDS: HYDROGEN PEROXIDE 3% 118 ML BOTTLE TP SCH ×2 (09:22→21:00)
[2020-04-18] MEDS: PROTEIN SUPPLEMENT (PROSTAT) 30 ML LIQUID PEG SCH ×2 (09:22→21:15)
[2020-04-18] MEDS: TIZANIDINE HCL 4 MG TABLET PEG SCH ×2 (09:22→17:12)
[2020-04-18] MEDS: FERROUS SULFATE 330 MG/7.5 ML UDC- FOR SA ONLY GT SCH ×2 (09:22→21:15)
[2020-04-18] MEDS: NUTRISOURCE FIBER 4 GM PACKET PEG SCH ×2 (09:22→21:15)
[2020-04-18 13:01] VITALS: BP 132/78
[2020-04-18] MEDS: TWOCAL HN 1,000 ML LIQUID PEG PRN (15:37)
[2020-04-18] MEDS: ACETAMINOPHEN 650 MG/20 ML UDC- SA PATIENTS-PAIN ONLY PEG SCH (17:12)
[2020-04-18 20:22] VITALS: BP 130/77
[2020-04-19] MEDS: OMEPRAZOLE 20 MG CAPSULE.DR GT SCH (05:37)
[2020-04-19] MEDS: MULTIVIT, IRON, MIN NO. 8, FA TABLET GT SCH (05:38)
[2020-04-19] MEDS: MIDODRINE 10 MG PEG SCH ×3 (05:38→21:55)
[2020-04-19 07:33] VITALS: BP 124/72
[2020-04-19] MEDS: FERROUS SULFATE 330 MG/7.5 ML UDC- FOR SA ONLY GT SCH ×2 (09:12→21:54)
[2020-04-19] MEDS: TIZANIDINE HCL 4 MG TABLET PEG SCH ×2 (09:12→16:13)
[2020-04-19] MEDS: DOCUSATE SODIUM 100 MG/10 ML LIQUID UDC GT SCH (09:12)
[2020-04-19] MEDS: Z GUARD REMEDY PASTE 57 GM TUBE TOP SCH ×2 (09:12→21:54)
[2020-04-19] MEDS: PROTEIN SUPPLEMENT (PROSTAT) 30 ML LIQUID PEG SCH ×2 (09:12→21:54)
[2020-04-19] MEDS: NUTRISOURCE FIBER 4 GM PACKET PEG SCH ×2 (09:12→21:54)
[2020-04-19] MEDS: HYDROGEN PEROXIDE 3% 118 ML BOTTLE TP SCH ×2 (09:30→21:55)
--- NOTE | 2020-04-19 15:00 | NUR ---
Provided video chat to pt. and her mother with no problem noted, pt. remains comfortable, all needs attended and anticipated.
[2020-04-19] MEDS: ACETAMINOPHEN 650 MG/20 ML UDC- SA PATIENTS-PAIN ONLY PEG SCH (16:13)
[2020-04-19 20:06] VITALS: BP 110/69
[2020-04-20] MEDS: MIDODRINE 10 MG PEG SCH ×3 (06:00→22:28)
[2020-04-20] MEDS: OMEPRAZOLE 20 MG CAPSULE.DR GT SCH (06:48)
[2020-04-20 07:30] VITALS: BP 141/71
[2020-04-20] MEDS: DOCUSATE SODIUM 100 MG/10 ML LIQUID UDC GT SCH (08:35)
[2020-04-20] MEDS: PROTEIN SUPPLEMENT (PROSTAT) 30 ML LIQUID PEG SCH ×2 (08:36→20:27)
[2020-04-20] MEDS: Z GUARD REMEDY PASTE 57 GM TUBE TOP SCH ×2 (08:36→20:27)
[2020-04-20] MEDS: FERROUS SULFATE 330 MG/7.5 ML UDC- FOR SA ONLY GT SCH ×2 (08:36→20:26)
[2020-04-20] MEDS: NUTRISOURCE FIBER 4 GM PACKET PEG SCH ×2 (08:36→20:27)
[2020-04-20] MEDS: TIZANIDINE HCL 4 MG TABLET PEG SCH ×2 (08:36→16:39)
[2020-04-20] MEDS: HYDROGEN PEROXIDE 3% 118 ML BOTTLE TP SCH ×2 (09:00→20:27)
[2020-04-20] MEDS: ACETAMINOPHEN 650 MG/20 ML UDC- SA PATIENTS-PAIN ONLY PEG SCH (16:39)
[2020-04-20 19:54] VITALS: BP 101/60
[2020-04-21] MEDS: MULTIVIT, IRON, MIN NO. 8, FA TABLET GT SCH (05:49)
[2020-04-21] MEDS: OMEPRAZOLE 20 MG CAPSULE.DR GT SCH (05:49)
[2020-04-21] MEDS: MIDODRINE 10 MG PEG SCH ×3 (05:49→22:42)
[2020-04-21 05:50] VITALS: BP 103/65
[2020-04-21 07:35] VITALS: BP 108/59
[2020-04-21] MEDS: DOCUSATE SODIUM 100 MG/10 ML LIQUID UDC GT SCH (08:31)
[2020-04-21] MEDS: FERROUS SULFATE 330 MG/7.5 ML UDC- FOR SA ONLY GT SCH ×2 (08:31→20:18)
[2020-04-21] MEDS: NUTRISOURCE FIBER 4 GM PACKET PEG SCH ×2 (08:32→20:18)
[2020-04-21] MEDS: TIZANIDINE HCL 4 MG TABLET PEG SCH ×2 (08:33→17:31)
[2020-04-21] MEDS: HYDROGEN PEROXIDE 3% 118 ML BOTTLE TP SCH ×2 (08:33→21:27)
[2020-04-21] MEDS: Z GUARD REMEDY PASTE 57 GM TUBE TOP SCH ×2 (08:33→20:18)
[2020-04-21] MEDS: PROTEIN SUPPLEMENT (PROSTAT) 30 ML LIQUID PEG SCH ×2 (08:34→20:18)
[2020-04-21] MEDS: ACETAMINOPHEN 650 MG/20 ML UDC- SA PATIENTS-PAIN ONLY PEG PRN (10:35)
[2020-04-21 14:37] VITALS: BP 106/65
--- NOTE | 2020-04-21 16:00 | NUR ---
Covid test today,Morena pt's mother notified,and she was awre pt has her period,with some abdominal cramps.
[2020-04-21] MEDS: ACETAMINOPHEN 650 MG/20 ML UDC- SA PATIENTS-PAIN ONLY PEG SCH (17:31)
[2020-04-21 19:57] VITALS: BP 105/50
[2020-04-22 05:00] VITALS: BP 105/60
[2020-04-22] MEDS: MIDODRINE 10 MG PEG SCH ×3 (05:59→22:52)
[2020-04-22] MEDS: OMEPRAZOLE 20 MG CAPSULE.DR GT SCH (05:59)
[2020-04-22 07:53] VITALS: BP 109/59
[2020-04-22] MEDS: TIZANIDINE HCL 4 MG TABLET PEG SCH ×2 (09:17→17:25)
[2020-04-22] MEDS: FERROUS SULFATE 330 MG/7.5 ML UDC- FOR SA ONLY GT SCH ×2 (09:17→20:23)
[2020-04-22] MEDS: PROTEIN SUPPLEMENT (PROSTAT) 30 ML LIQUID PEG SCH ×2 (09:17→20:23)
[2020-04-22] MEDS: NUTRISOURCE FIBER 4 GM PACKET PEG SCH ×2 (09:17→20:23)
[2020-04-22] MEDS: DOCUSATE SODIUM 100 MG/10 ML LIQUID UDC GT SCH (09:17)
[2020-04-22] MEDS: Z GUARD REMEDY PASTE 57 GM TUBE TOP SCH ×2 (09:17→20:23)
[2020-04-22] MEDS: HYDROGEN PEROXIDE 3% 118 ML BOTTLE TP SCH ×2 (09:44→21:06)
[2020-04-22] MEDS: ACETAMINOPHEN 650 MG/20 ML UDC- SA PATIENTS-PAIN ONLY PEG SCH (17:25)
[2020-04-22] MEDS: TWOCAL HN 1,000 ML LIQUID PEG PRN (17:30)
[2020-04-22 19:08] VITALS: BP 96/59
[2020-04-23] MEDS: MIDODRINE 10 MG PEG SCH ×3 (06:15→21:47)
[2020-04-23] MEDS: OMEPRAZOLE 20 MG CAPSULE.DR GT SCH (06:15)
[2020-04-23] MEDS: MULTIVIT, IRON, MIN NO. 8, FA TABLET GT SCH (06:38)
[2020-04-23 07:52] VITALS: BP 124/67
[2020-04-23] MEDS: FERROUS SULFATE 330 MG/7.5 ML UDC- FOR SA ONLY GT SCH ×2 (08:32→21:46)
[2020-04-23] MEDS: DOCUSATE SODIUM 100 MG/10 ML LIQUID UDC GT SCH (08:32)
[2020-04-23] MEDS: NUTRISOURCE FIBER 4 GM PACKET PEG SCH ×2 (08:32→21:46)
[2020-04-23] MEDS: PROTEIN SUPPLEMENT (PROSTAT) 30 ML LIQUID PEG SCH ×2 (08:32→21:46)
[2020-04-23] MEDS: TIZANIDINE HCL 4 MG TABLET PEG SCH ×2 (08:32→17:51)
[2020-04-23] MEDS: Z GUARD REMEDY PASTE 57 GM TUBE TOP SCH ×2 (08:33→21:47)
[2020-04-23] MEDS: HYDROGEN PEROXIDE 3% 118 ML BOTTLE TP SCH ×2 (09:00→21:30)
--- NOTE | 2020-04-23 16:09 | NUR ---
PT'S MOTHER WAS AWARE OF COVID 19 TEST FROM 04/21/20 AND VIDEO CHAT DONE VIA ZOOM AT THIS TIME.
[2020-04-23] MEDS: ACETAMINOPHEN 650 MG/20 ML UDC- SA PATIENTS-PAIN ONLY PEG SCH (17:51)
[2020-04-23 19:08] VITALS: BP 112/64
[2020-04-24] MEDS: OMEPRAZOLE 20 MG CAPSULE.DR GT SCH (05:14)
[2020-04-24] MEDS: MIDODRINE 10 MG PEG SCH ×3 (05:14→22:07)
[2020-04-24 07:18] VITALS: BP 123/68
[2020-04-24 07:46] VITALS: BP 105/55
[2020-04-24] MEDS: HYDROGEN PEROXIDE 3% 118 ML BOTTLE TP SCH ×2 (07:54→21:15)
[2020-04-24] MEDS: DOCUSATE SODIUM 100 MG/10 ML LIQUID UDC GT SCH (09:05)
[2020-04-24] MEDS: NUTRISOURCE FIBER 4 GM PACKET PEG SCH ×2 (09:05→20:12)
[2020-04-24] MEDS: FERROUS SULFATE 330 MG/7.5 ML UDC- FOR SA ONLY GT SCH ×2 (09:05→20:12)
[2020-04-24] MEDS: PROTEIN SUPPLEMENT (PROSTAT) 30 ML LIQUID PEG SCH ×2 (09:05→20:12)
[2020-04-24] MEDS: TIZANIDINE HCL 4 MG TABLET PEG SCH ×2 (09:05→17:10)
[2020-04-24] MEDS: Z GUARD REMEDY PASTE 57 GM TUBE TOP SCH ×2 (09:06→20:12)
[2020-04-24 14:42] VITALS: BP 103/64
[2020-04-24] MEDS: ACETAMINOPHEN 650 MG/20 ML UDC- SA PATIENTS-PAIN ONLY PEG SCH (17:10)
[2020-04-24] MEDS: TWOCAL HN 1,000 ML LIQUID PEG PRN (17:32)
[2020-04-24 20:02] VITALS: BP 99/53
[2020-04-25] MEDS: OMEPRAZOLE 20 MG CAPSULE.DR GT SCH (05:57)
[2020-04-25] MEDS: MIDODRINE 10 MG PEG SCH ×3 (05:57→22:04)
[2020-04-25] MEDS: MULTIVIT, IRON, MIN NO. 8, FA TABLET GT SCH (05:57)
[2020-04-25 07:26] VITALS: BP 107/68
[2020-04-25] MEDS: PROTEIN SUPPLEMENT (PROSTAT) 30 ML LIQUID PEG SCH ×2 (08:53→21:00)
[2020-04-25] MEDS: TIZANIDINE HCL 4 MG TABLET PEG SCH ×2 (08:53→17:20)
[2020-04-25] MEDS: Z GUARD REMEDY PASTE 57 GM TUBE TOP SCH ×2 (08:53→21:00)
[2020-04-25] MEDS: DOCUSATE SODIUM 100 MG/10 ML LIQUID UDC GT SCH (08:53)
[2020-04-25] MEDS: NUTRISOURCE FIBER 4 GM PACKET PEG SCH ×2 (08:53→21:00)
[2020-04-25] MEDS: FERROUS SULFATE 330 MG/7.5 ML UDC- FOR SA ONLY GT SCH ×2 (08:53→21:00)
[2020-04-25] MEDS: HYDROGEN PEROXIDE 3% 118 ML BOTTLE TP SCH ×2 (09:00→21:54)
--- NOTE | 2020-04-25 16:30 | NUR ---
zoom provided to mother.
[2020-04-25] MEDS: ACETAMINOPHEN 650 MG/20 ML UDC- SA PATIENTS-PAIN ONLY PEG SCH (17:20)
[2020-04-25 19:55] VITALS: BP 100/54
[2020-04-26] MEDS: MIDODRINE 10 MG PEG SCH ×3 (05:50→22:22)
[2020-04-26] MEDS: OMEPRAZOLE 20 MG CAPSULE.DR GT SCH (05:50)
[2020-04-26 07:29] VITALS: BP 103/74
[2020-04-26] MEDS: DOCUSATE SODIUM 100 MG/10 ML LIQUID UDC GT SCH (08:37)
[2020-04-26] MEDS: Z GUARD REMEDY PASTE 57 GM TUBE TOP SCH ×2 (08:38→20:48)
[2020-04-26] MEDS: FERROUS SULFATE 330 MG/7.5 ML UDC- FOR SA ONLY GT SCH ×2 (08:38→20:48)
[2020-04-26] MEDS: PROTEIN SUPPLEMENT (PROSTAT) 30 ML LIQUID PEG SCH ×2 (08:38→20:48)
[2020-04-26] MEDS: TIZANIDINE HCL 4 MG TABLET PEG SCH ×2 (08:38→16:56)
[2020-04-26] MEDS: NUTRISOURCE FIBER 4 GM PACKET PEG SCH ×2 (08:38→20:48)
[2020-04-26] MEDS: HYDROGEN PEROXIDE 3% 118 ML BOTTLE TP SCH ×3 (09:00→21:24)
[2020-04-26] MEDS: TWOCAL HN 1,000 ML LIQUID PEG PRN (12:21)
--- NOTE | 2020-04-26 16:00 | NUR ---
zoom provided to mother.
[2020-04-26] MEDS: ACETAMINOPHEN 650 MG/20 ML UDC- SA PATIENTS-PAIN ONLY PEG SCH (16:56)
[2020-04-26 19:43] VITALS: BP 102/62
--- NOTE | 2020-04-26 20:20 | NUR ---
PT'S MOTHER AWARE OF COVID 19 TEST TODAY AND IN AGREEMENT AND ORDER CARRIED OUT.
[2020-04-27] MEDS: OMEPRAZOLE 20 MG CAPSULE.DR GT SCH (05:49)
[2020-04-27] MEDS: MULTIVIT, IRON, MIN NO. 8, FA TABLET GT SCH (05:49)
[2020-04-27] MEDS: MIDODRINE 10 MG PEG SCH ×3 (05:49→22:00)
[2020-04-27 07:15] VITALS: BP 131/61
[2020-04-27] MEDS: DOCUSATE SODIUM 100 MG/10 ML LIQUID UDC GT SCH (08:58)
[2020-04-27] MEDS: FERROUS SULFATE 330 MG/7.5 ML UDC- FOR SA ONLY GT SCH ×2 (09:00→20:30)
[2020-04-27] MEDS: NUTRISOURCE FIBER 4 GM PACKET PEG SCH ×2 (09:00→20:30)
[2020-04-27] MEDS: Z GUARD REMEDY PASTE 57 GM TUBE TOP SCH ×2 (09:00→20:30)
[2020-04-27] MEDS: PROTEIN SUPPLEMENT (PROSTAT) 30 ML LIQUID PEG SCH ×2 (09:00→20:30)
[2020-04-27] MEDS: TIZANIDINE HCL 4 MG TABLET PEG SCH ×2 (09:00→16:00)
[2020-04-27] MEDS: HYDROGEN PEROXIDE 3% 118 ML BOTTLE TP SCH ×2 (09:53→20:17)
[2020-04-27 14:31] VITALS: BP 97/62
--- NOTE | 2020-04-27 15:36 | NUR ---
video chat done with pt's mother.
[2020-04-27] MEDS: ACETAMINOPHEN 650 MG/20 ML UDC- SA PATIENTS-PAIN ONLY PEG SCH (16:00)
[2020-04-27 20:43] VITALS: BP 97/56
[2020-04-27 21:07] VITALS: BP 129/64
[2020-04-28] MEDS: MIDODRINE 10 MG PEG SCH ×3 (06:02→22:31)
[2020-04-28] MEDS: OMEPRAZOLE 20 MG CAPSULE.DR GT SCH (06:02)
[2020-04-28 07:25] VITALS: BP 103/64
[2020-04-28] MEDS: NUTRISOURCE FIBER 4 GM PACKET PEG SCH ×2 (08:13→21:00)
[2020-04-28] MEDS: FERROUS SULFATE 330 MG/7.5 ML UDC- FOR SA ONLY GT SCH ×2 (08:13→21:00)
[2020-04-28] MEDS: DOCUSATE SODIUM 100 MG/10 ML LIQUID UDC GT SCH (08:13)
[2020-04-28] MEDS: PROTEIN SUPPLEMENT (PROSTAT) 30 ML LIQUID PEG SCH ×2 (08:14→21:00)
[2020-04-28] MEDS: TIZANIDINE HCL 4 MG TABLET PEG SCH ×2 (08:14→16:21)
[2020-04-28] MEDS: Z GUARD REMEDY PASTE 57 GM TUBE TOP SCH ×2 (08:14→21:00)
[2020-04-28] MEDS: HYDROGEN PEROXIDE 3% 118 ML BOTTLE TP SCH ×2 (09:00→21:00)
[2020-04-28] MEDS: ACETAMINOPHEN 650 MG/20 ML UDC- SA PATIENTS-PAIN ONLY PEG PRN (12:00)
[2020-04-28 13:14] VITALS: BP 95/68
[2020-04-28] MEDS: TWOCAL HN 1,000 ML LIQUID PEG PRN (16:21)
[2020-04-28] MEDS: ACETAMINOPHEN 650 MG/20 ML UDC- SA PATIENTS-PAIN ONLY PEG SCH (16:21)
[2020-04-28 20:09] VITALS: BP 103/60
[2020-04-29] MEDS: MIDODRINE 10 MG PEG SCH ×3 (06:00→22:00)
[2020-04-29] MEDS: MULTIVIT, IRON, MIN NO. 8, FA TABLET GT SCH (06:54)
[2020-04-29] MEDS: OMEPRAZOLE 20 MG CAPSULE.DR GT SCH (06:54)
[2020-04-29] MEDS: HYDROGEN PEROXIDE 3% 118 ML BOTTLE TP SCH ×2 (07:21→20:46)
[2020-04-29 07:33] VITALS: BP 105/66
[2020-04-29] MEDS: FERROUS SULFATE 330 MG/7.5 ML UDC- FOR SA ONLY GT SCH ×2 (08:48→20:54)
[2020-04-29] MEDS: DOCUSATE SODIUM 100 MG/10 ML LIQUID UDC GT SCH (08:48)
[2020-04-29] MEDS: TIZANIDINE HCL 4 MG TABLET PEG SCH ×2 (08:49→17:07)
[2020-04-29] MEDS: PROTEIN SUPPLEMENT (PROSTAT) 30 ML LIQUID PEG SCH ×2 (08:49→20:54)
[2020-04-29] MEDS: NUTRISOURCE FIBER 4 GM PACKET PEG SCH ×2 (08:49→20:54)
[2020-04-29] MEDS: Z GUARD REMEDY PASTE 57 GM TUBE TOP SCH ×2 (08:49→20:54)
--- NOTE | 2020-04-29 15:30 | NUR ---
zoom provided to mother.
[2020-04-29] MEDS: ACETAMINOPHEN 650 MG/20 ML UDC- SA PATIENTS-PAIN ONLY PEG SCH (17:07)
[2020-04-29 20:22] VITALS: BP 117/71
[2020-04-30 05:30] VITALS: BP 111/68
[2020-04-30] MEDS: MIDODRINE 10 MG PEG SCH ×3 (06:00→21:19)
[2020-04-30] MEDS: OMEPRAZOLE 20 MG CAPSULE.DR GT SCH (06:51)
[2020-04-30] MEDS: HYDROGEN PEROXIDE 3% 118 ML BOTTLE TP SCH ×2 (07:30→21:19)
[2020-04-30 07:32] VITALS: BP 106/61
[2020-04-30] MEDS: FERROUS SULFATE 330 MG/7.5 ML UDC- FOR SA ONLY GT SCH ×2 (08:57→21:19)
[2020-04-30] MEDS: NUTRISOURCE FIBER 4 GM PACKET PEG SCH ×2 (08:57→21:19)
[2020-04-30] MEDS: DOCUSATE SODIUM 100 MG/10 ML LIQUID UDC GT SCH (08:57)
[2020-04-30] MEDS: PROTEIN SUPPLEMENT (PROSTAT) 30 ML LIQUID PEG SCH ×2 (08:58→21:19)
[2020-04-30] MEDS: Z GUARD REMEDY PASTE 57 GM TUBE TOP SCH ×2 (08:59→21:19)
[2020-04-30] MEDS: TIZANIDINE HCL 4 MG TABLET PEG SCH ×2 (08:59→17:43)
[2020-04-30] MEDS: ACETAMINOPHEN 650 MG/20 ML UDC- SA PATIENTS-PAIN ONLY PEG SCH (17:43)
[2020-04-30 20:24] VITALS: BP 102/54
[2020-05-01] MEDS: MIDODRINE 10 MG PEG SCH ×3 (05:58→21:10)
[2020-05-01] MEDS: MULTIVIT, IRON, MIN NO. 8, FA TABLET GT SCH (05:58)
[2020-05-01] MEDS: OMEPRAZOLE 20 MG CAPSULE.DR GT SCH (05:58)
[2020-05-01 08:09] VITALS: BP 100/46
[2020-05-01] MEDS: TIZANIDINE HCL 4 MG TABLET PEG SCH ×2 (08:41→17:53)
[2020-05-01] MEDS: PROTEIN SUPPLEMENT (PROSTAT) 30 ML LIQUID PEG SCH ×2 (08:41→20:52)
[2020-05-01] MEDS: NUTRISOURCE FIBER 4 GM PACKET PEG SCH ×2 (08:41→20:52)
[2020-05-01] MEDS: FERROUS SULFATE 330 MG/7.5 ML UDC- FOR SA ONLY GT SCH ×2 (08:41→20:52)
[2020-05-01] MEDS: DOCUSATE SODIUM 100 MG/10 ML LIQUID UDC GT SCH (08:41)
[2020-05-01] MEDS: Z GUARD REMEDY PASTE 57 GM TUBE TOP SCH ×2 (08:42→20:52)
[2020-05-01] MEDS: HYDROGEN PEROXIDE 3% 118 ML BOTTLE TP SCH ×2 (09:00→21:18)
[2020-05-01] MEDS: ACETAMINOPHEN 650 MG/20 ML UDC- SA PATIENTS-PAIN ONLY PEG SCH (17:53)
[2020-05-01 20:32] VITALS: BP 96/65
[2020-05-02] MEDS: MIDODRINE 10 MG PEG SCH ×3 (05:31→21:15)
[2020-05-02] MEDS: OMEPRAZOLE 20 MG CAPSULE.DR GT SCH (05:31)
[2020-05-02 07:44] VITALS: BP 121/59
[2020-05-02] MEDS: HYDROGEN PEROXIDE 3% 118 ML BOTTLE TP SCH ×2 (07:54→20:57)
[2020-05-02] MEDS: FERROUS SULFATE 330 MG/7.5 ML UDC- FOR SA ONLY GT SCH ×2 (08:29→20:35)
[2020-05-02] MEDS: NUTRISOURCE FIBER 4 GM PACKET PEG SCH ×2 (08:29→20:35)
[2020-05-02] MEDS: PROTEIN SUPPLEMENT (PROSTAT) 30 ML LIQUID PEG SCH ×2 (08:29→20:35)
[2020-05-02] MEDS: DOCUSATE SODIUM 100 MG/10 ML LIQUID UDC GT SCH (08:29)
[2020-05-02] MEDS: TIZANIDINE HCL 4 MG TABLET PEG SCH ×2 (08:30→17:02)
[2020-05-02] MEDS: Z GUARD REMEDY PASTE 57 GM TUBE TOP SCH ×2 (08:30→20:35)
--- NOTE | 2020-05-02 15:31 | NUR ---
zoom provided to mother.
[2020-05-02] MEDS: ACETAMINOPHEN 650 MG/20 ML UDC- SA PATIENTS-PAIN ONLY PEG SCH (17:02)
[2020-05-02] MEDS: TWOCAL HN 1,000 ML LIQUID PEG PRN ×2 (17:03→23:08)
[2020-05-02 20:41] VITALS: BP 115/62
[2020-05-03] MEDS: MIDODRINE 10 MG PEG SCH ×3 (06:09→22:13)
[2020-05-03] MEDS: OMEPRAZOLE 20 MG CAPSULE.DR GT SCH (06:09)
[2020-05-03] MEDS: MULTIVIT, IRON, MIN NO. 8, FA TABLET GT SCH (06:09)
[2020-05-03 07:18] VITALS: BP 114/67
[2020-05-03] MEDS: FERROUS SULFATE 330 MG/7.5 ML UDC- FOR SA ONLY GT SCH ×2 (08:14→20:39)
[2020-05-03] MEDS: DOCUSATE SODIUM 100 MG/10 ML LIQUID UDC GT SCH (08:14)
[2020-05-03] MEDS: PROTEIN SUPPLEMENT (PROSTAT) 30 ML LIQUID PEG SCH ×2 (08:17→20:39)
[2020-05-03] MEDS: TIZANIDINE HCL 4 MG TABLET PEG SCH ×2 (08:17→16:59)
[2020-05-03] MEDS: NUTRISOURCE FIBER 4 GM PACKET PEG SCH ×2 (08:17→20:39)
[2020-05-03] MEDS: Z GUARD REMEDY PASTE 57 GM TUBE TOP SCH ×2 (08:17→20:40)
[2020-05-03] MEDS: HYDROGEN PEROXIDE 3% 118 ML BOTTLE TP SCH ×2 (09:20→21:08)
--- NOTE | 2020-05-03 10:46 | NUR ---
Left side of chest and abdomen scratch noted, tx done as ordered by doctor. Patient's mother aware of it.
[2020-05-03] MEDS: NEOMY/BACITRA/POLYMYXIN B OINT UD PACKET TP SCH ×2 (10:51→20:40)
[2020-05-03 14:36] VITALS: BP 101/62
[2020-05-03] MEDS: ACETAMINOPHEN 650 MG/20 ML UDC- SA PATIENTS-PAIN ONLY PEG SCH (17:00)
[2020-05-03 20:13] VITALS: BP 95/52
[2020-05-04] MEDS: OMEPRAZOLE 20 MG CAPSULE.DR GT SCH (06:04)
[2020-05-04] MEDS: MIDODRINE 10 MG PEG SCH ×3 (06:04→22:17)
[2020-05-04 07:27] VITALS: BP 125/63
[2020-05-04] MEDS: HYDROGEN PEROXIDE 3% 118 ML BOTTLE TP SCH ×2 (09:13→21:02)
[2020-05-04] MEDS: PROTEIN SUPPLEMENT (PROSTAT) 30 ML LIQUID PEG SCH ×2 (09:54→20:19)
[2020-05-04] MEDS: TIZANIDINE HCL 4 MG TABLET PEG SCH ×2 (09:54→17:03)
[2020-05-04] MEDS: DOCUSATE SODIUM 100 MG/10 ML LIQUID UDC GT SCH (09:54)
[2020-05-04] MEDS: NUTRISOURCE FIBER 4 GM PACKET PEG SCH ×2 (09:54→20:19)
[2020-05-04] MEDS: FERROUS SULFATE 330 MG/7.5 ML UDC- FOR SA ONLY GT SCH ×2 (09:54→20:19)
[2020-05-04] MEDS: Z GUARD REMEDY PASTE 57 GM TUBE TOP SCH ×2 (09:54→20:19)
[2020-05-04] MEDS: NEOMY/BACITRA/POLYMYXIN B OINT UD PACKET TP SCH ×2 (09:56→20:20)
[2020-05-04 13:03] VITALS: BP 128/65
[2020-05-04] MEDS: ACETAMINOPHEN 650 MG/20 ML UDC- SA PATIENTS-PAIN ONLY PEG SCH (17:03)
[2020-05-04 20:14] VITALS: BP 99/57
[2020-05-05] MEDS: TWOCAL HN 1,000 ML LIQUID PEG PRN (02:50)
[2020-05-05] MEDS: MIDODRINE 10 MG PEG SCH ×3 (06:12→22:26)
[2020-05-05] MEDS: OMEPRAZOLE 20 MG CAPSULE.DR GT SCH (06:12)
[2020-05-05] MEDS: MULTIVIT, IRON, MIN NO. 8, FA TABLET GT SCH (06:12)
[2020-05-05 07:23] VITALS: BP 116/62
[2020-05-05] MEDS: DOCUSATE SODIUM 100 MG/10 ML LIQUID UDC GT SCH (08:33)
[2020-05-05] MEDS: PROTEIN SUPPLEMENT (PROSTAT) 30 ML LIQUID PEG SCH ×2 (08:34→20:15)
[2020-05-05] MEDS: TIZANIDINE HCL 4 MG TABLET PEG SCH ×2 (08:34→17:25)
[2020-05-05] MEDS: FERROUS SULFATE 330 MG/7.5 ML UDC- FOR SA ONLY GT SCH ×2 (08:34→20:15)
[2020-05-05] MEDS: NUTRISOURCE FIBER 4 GM PACKET PEG SCH ×2 (08:34→20:15)
[2020-05-05] MEDS: Z GUARD REMEDY PASTE 57 GM TUBE TOP SCH ×2 (08:35→20:15)
[2020-05-05] MEDS: NEOMY/BACITRA/POLYMYXIN B OINT UD PACKET TP SCH ×2 (09:00→20:16)
[2020-05-05] MEDS: HYDROGEN PEROXIDE 3% 118 ML BOTTLE TP SCH ×2 (09:00→21:04)
--- NOTE | 2020-05-05 14:00 | NUR ---
For Covid-19 test today per [facility] requirement,Pt's mother notified.
[2020-05-05] MEDS: ACETAMINOPHEN 650 MG/20 ML UDC- SA PATIENTS-PAIN ONLY PEG SCH (17:25)
[2020-05-05 20:14] VITALS: BP 86/48
[2020-05-06] MEDS: MIDODRINE 10 MG PEG SCH ×3 (06:02→22:45)
[2020-05-06] MEDS: OMEPRAZOLE 20 MG CAPSULE.DR GT SCH (06:02)
[2020-05-06 07:54] VITALS: BP 110/62
[2020-05-06] MEDS: NUTRISOURCE FIBER 4 GM PACKET PEG SCH ×2 (08:20→20:18)
[2020-05-06] MEDS: PROTEIN SUPPLEMENT (PROSTAT) 30 ML LIQUID PEG SCH ×2 (08:20→20:18)
[2020-05-06] MEDS: DOCUSATE SODIUM 100 MG/10 ML LIQUID UDC GT SCH (08:21)
[2020-05-06] MEDS: TIZANIDINE HCL 4 MG TABLET PEG SCH ×2 (08:21→17:11)
[2020-05-06] MEDS: Z GUARD REMEDY PASTE 57 GM TUBE TOP SCH ×2 (08:21→20:18)
[2020-05-06] MEDS: NEOMY/BACITRA/POLYMYXIN B OINT UD PACKET TP SCH ×2 (08:21→20:18)
[2020-05-06] MEDS: FERROUS SULFATE 330 MG/7.5 ML UDC- FOR SA ONLY GT SCH ×2 (08:21→20:18)
[2020-05-06] MEDS: HYDROGEN PEROXIDE 3% 118 ML BOTTLE TP SCH ×2 (09:21→20:24)
[2020-05-06] MEDS: ACETAMINOPHEN 650 MG/20 ML UDC- SA PATIENTS-PAIN ONLY PEG SCH (17:11)
[2020-05-06 20:13] VITALS: BP 99/60
[2020-05-07] MEDS: TWOCAL HN 1,000 ML LIQUID PEG PRN (02:17)
--- NOTE | 2020-05-07 04:00 | NUR ---
Jose from Lab called RE: Patient's Covid-19 test that resulted negative.
[2020-05-07] MEDS: OMEPRAZOLE 20 MG CAPSULE.DR GT SCH (05:40)
[2020-05-07] MEDS: MIDODRINE 10 MG PEG SCH ×3 (05:45→22:00)
[2020-05-07] MEDS: MULTIVIT, IRON, MIN NO. 8, FA TABLET GT SCH (05:45)
[2020-05-07 07:40] VITALS: BP 114/67
[2020-05-07] MEDS: FERROUS SULFATE 330 MG/7.5 ML UDC- FOR SA ONLY GT SCH ×2 (08:58→21:00)
[2020-05-07] MEDS: DOCUSATE SODIUM 100 MG/10 ML LIQUID UDC GT SCH (08:58)
[2020-05-07] MEDS: NUTRISOURCE FIBER 4 GM PACKET PEG SCH ×2 (08:59→21:00)
[2020-05-07] MEDS: TIZANIDINE HCL 4 MG TABLET PEG SCH ×2 (08:59→17:41)
[2020-05-07] MEDS: NEOMY/BACITRA/POLYMYXIN B OINT UD PACKET TP SCH ×2 (08:59→21:00)
[2020-05-07] MEDS: PROTEIN SUPPLEMENT (PROSTAT) 30 ML LIQUID PEG SCH ×2 (08:59→21:00)
[2020-05-07] MEDS: Z GUARD REMEDY PASTE 57 GM TUBE TOP SCH ×2 (08:59→21:00)
[2020-05-07] MEDS: HYDROGEN PEROXIDE 3% 118 ML BOTTLE TP SCH ×2 (09:02→21:02)
--- NOTE | 2020-05-07 10:05 | NUR ---
PT'S MOTHER WAS NOTIFIED RE: NEGATIVE COVID 19 TEST RESULT.
[2020-05-07] MEDS: BISACODYL 10 MG SUPP.RECT RC PRN (14:03)
[2020-05-07] MEDS: ACETAMINOPHEN 650 MG/20 ML UDC- SA PATIENTS-PAIN ONLY PEG SCH (17:41)
[2020-05-07 20:16] VITALS: BP 120/64
[2020-05-08] MEDS: OMEPRAZOLE 20 MG CAPSULE.DR GT SCH (05:55)
[2020-05-08] MEDS: MIDODRINE 10 MG PEG SCH ×3 (05:55→21:55)
[2020-05-08 07:58] VITALS: BP 111/63
[2020-05-08] MEDS: HYDROGEN PEROXIDE 3% 118 ML BOTTLE TP SCH ×2 (08:40→21:49)
[2020-05-08] MEDS: DOCUSATE SODIUM 100 MG/10 ML LIQUID UDC GT SCH (08:51)
[2020-05-08] MEDS: FERROUS SULFATE 330 MG/7.5 ML UDC- FOR SA ONLY GT SCH ×2 (08:51→20:02)
[2020-05-08] MEDS: NUTRISOURCE FIBER 4 GM PACKET PEG SCH ×2 (08:52→20:02)
[2020-05-08] MEDS: TIZANIDINE HCL 4 MG TABLET PEG SCH ×2 (08:54→17:47)
[2020-05-08] MEDS: PROTEIN SUPPLEMENT (PROSTAT) 30 ML LIQUID PEG SCH ×2 (08:54→20:02)
[2020-05-08] MEDS: Z GUARD REMEDY PASTE 57 GM TUBE TOP SCH ×2 (08:55→20:15)
[2020-05-08] MEDS: NEOMY/BACITRA/POLYMYXIN B OINT UD PACKET TP SCH ×2 (08:55→20:15)
[2020-05-08] MEDS: ACETAMINOPHEN 650 MG/20 ML UDC- SA PATIENTS-PAIN ONLY PEG SCH (17:46)
[2020-05-08 20:22] VITALS: BP 107/58
[2020-05-09] MEDS: TWOCAL HN 1,000 ML LIQUID PEG PRN (05:32)
[2020-05-09] MEDS: MULTIVIT, IRON, MIN NO. 8, FA TABLET GT SCH (05:32)
[2020-05-09] MEDS: OMEPRAZOLE 20 MG CAPSULE.DR GT SCH (05:32)
[2020-05-09] MEDS: MIDODRINE 10 MG PEG SCH ×3 (05:32→21:05)
[2020-05-09 07:48] VITALS: BP 121/63
[2020-05-09] MEDS: DOCUSATE SODIUM 100 MG/10 ML LIQUID UDC GT SCH (08:20)
[2020-05-09] MEDS: NUTRISOURCE FIBER 4 GM PACKET PEG SCH ×2 (08:20→21:04)
[2020-05-09] MEDS: FERROUS SULFATE 330 MG/7.5 ML UDC- FOR SA ONLY GT SCH ×2 (08:20→21:04)
[2020-05-09] MEDS: NEOMY/BACITRA/POLYMYXIN B OINT UD PACKET TP SCH ×2 (08:21→21:05)
[2020-05-09] MEDS: Z GUARD REMEDY PASTE 57 GM TUBE TOP SCH ×2 (08:21→21:04)
[2020-05-09] MEDS: PROTEIN SUPPLEMENT (PROSTAT) 30 ML LIQUID PEG SCH ×2 (08:21→21:04)
[2020-05-09] MEDS: TIZANIDINE HCL 4 MG TABLET PEG SCH ×2 (08:21→16:39)
[2020-05-09] MEDS: HYDROGEN PEROXIDE 3% 118 ML BOTTLE TP SCH ×2 (09:00→21:47)
[2020-05-09] MEDS: ACETAMINOPHEN 650 MG/20 ML UDC- SA PATIENTS-PAIN ONLY PEG SCH (16:38)
[2020-05-09 20:54] VITALS: BP 118/66
[2020-05-10] MEDS: MIDODRINE 10 MG PEG SCH ×3 (06:00→22:12)
[2020-05-10] MEDS: OMEPRAZOLE 20 MG CAPSULE.DR GT SCH (06:15)
[2020-05-10 07:43] VITALS: BP 124/71
[2020-05-10] MEDS: FERROUS SULFATE 330 MG/7.5 ML UDC- FOR SA ONLY GT SCH ×2 (08:24→20:51)
[2020-05-10] MEDS: NEOMY/BACITRA/POLYMYXIN B OINT UD PACKET TP SCH ×2 (08:24→20:51)
[2020-05-10] MEDS: TIZANIDINE HCL 4 MG TABLET PEG SCH ×2 (08:24→16:42)
[2020-05-10] MEDS: DOCUSATE SODIUM 100 MG/10 ML LIQUID UDC GT SCH (08:24)
[2020-05-10] MEDS: PROTEIN SUPPLEMENT (PROSTAT) 30 ML LIQUID PEG SCH ×2 (08:24→20:51)
[2020-05-10] MEDS: NUTRISOURCE FIBER 4 GM PACKET PEG SCH ×2 (08:24→20:51)
[2020-05-10] MEDS: Z GUARD REMEDY PASTE 57 GM TUBE TOP SCH ×2 (08:30→20:51)
[2020-05-10] MEDS: HYDROGEN PEROXIDE 3% 118 ML BOTTLE TP SCH ×2 (09:11→21:40)
--- NOTE | 2020-05-10 10:51 | NUR ---
PT'S MOTHER WAS NOTIFIED RE:COVID19 TEST WITH MESSAGE AND ORDER CARRIED OUT FROM DR. FRANK.
[2020-05-10 12:45] VITALS: BP 108/65
[2020-05-10] MEDS: ACETAMINOPHEN 650 MG/20 ML UDC- SA PATIENTS-PAIN ONLY PEG SCH (16:42)
[2020-05-10 20:12] VITALS: BP 113/51
[2020-05-11] MEDS: MULTIVIT, IRON, MIN NO. 8, FA TABLET GT SCH (05:46)
[2020-05-11] MEDS: OMEPRAZOLE 20 MG CAPSULE.DR GT SCH (05:46)
[2020-05-11] MEDS: MIDODRINE 10 MG PEG SCH ×3 (05:46→21:24)
[2020-05-11 07:44] VITALS: BP 105/66
[2020-05-11] MEDS: HYDROGEN PEROXIDE 3% 118 ML BOTTLE TP SCH ×2 (07:46→20:05)
[2020-05-11] MEDS: NUTRISOURCE FIBER 4 GM PACKET PEG SCH ×2 (08:57→21:22)
[2020-05-11] MEDS: Z GUARD REMEDY PASTE 57 GM TUBE TOP SCH ×2 (08:57→21:23)
[2020-05-11] MEDS: NEOMY/BACITRA/POLYMYXIN B OINT UD PACKET TP SCH ×2 (08:57→21:23)
[2020-05-11] MEDS: DOCUSATE SODIUM 100 MG/10 ML LIQUID UDC GT SCH (08:57)
[2020-05-11] MEDS: FERROUS SULFATE 330 MG/7.5 ML UDC- FOR SA ONLY GT SCH ×2 (08:57→21:22)
[2020-05-11] MEDS: TIZANIDINE HCL 4 MG TABLET PEG SCH ×2 (08:57→17:36)
[2020-05-11] MEDS: PROTEIN SUPPLEMENT (PROSTAT) 30 ML LIQUID PEG SCH ×2 (08:57→21:23)
--- NOTE | 2020-05-11 15:03 | NUR ---
INTERDISCIPLINARY PLAN OF CARE CONFERENCE was held today. Patient's mother was not available to participate in the meeting today. Dr. Caraballo and the Interdisciplinary Team reviewed the current plan of care in detail. RN reported on patient's medical condition. See RN IDT conference notes. No major changes in medical condition were reported by nursing or by any of the other disciplines. See all other disciplines IDT notes and physician's progress notes for additional details.
--- NOTE | 2020-05-11 15:24 | NUR ---
SW received patient's annual [employer] Redetermination Form. SW emailed patient's mother Morena, letting her know that this SW has received the form, and to schedule a time to meet with Morena to complete the form and obtain Morena's signature on the form. SW will wait to hear back from Morena, and will follow-up as needed.
[2020-05-11] MEDS: ACETAMINOPHEN 650 MG/20 ML UDC- SA PATIENTS-PAIN ONLY PEG SCH (17:36)
[2020-05-11 20:07] VITALS: BP 111/64
--- NOTE | 2020-05-11 21:24 | NUR ---
Held midodrine 10mg b/p 111/64
[2020-05-12] MEDS: OMEPRAZOLE 20 MG CAPSULE.DR GT SCH (05:37)
[2020-05-12] MEDS: MIDODRINE 10 MG PEG SCH ×3 (05:37→21:07)
[2020-05-12 07:47] VITALS: BP 97/63
[2020-05-12] MEDS: HYDROGEN PEROXIDE 3% 118 ML BOTTLE TP SCH ×2 (08:25→20:04)
[2020-05-12] MEDS: FERROUS SULFATE 330 MG/7.5 ML UDC- FOR SA ONLY GT SCH ×2 (08:56→20:58)
[2020-05-12] MEDS: DOCUSATE SODIUM 100 MG/10 ML LIQUID UDC GT SCH (08:56)
[2020-05-12] MEDS: PROTEIN SUPPLEMENT (PROSTAT) 30 ML LIQUID PEG SCH ×2 (08:56→20:58)
[2020-05-12] MEDS: NUTRISOURCE FIBER 4 GM PACKET PEG SCH ×2 (08:56→20:58)
[2020-05-12] MEDS: NEOMY/BACITRA/POLYMYXIN B OINT UD PACKET TP SCH ×2 (08:56→20:58)
[2020-05-12] MEDS: TIZANIDINE HCL 4 MG TABLET PEG SCH ×2 (08:56→17:31)
[2020-05-12] MEDS: Z GUARD REMEDY PASTE 57 GM TUBE TOP SCH ×2 (08:56→20:58)
--- NOTE | 2020-05-12 15:05 | NUR ---
zoom provided to mother.
[2020-05-12] MEDS: ACETAMINOPHEN 650 MG/20 ML UDC- SA PATIENTS-PAIN ONLY PEG SCH (17:31)
[2020-05-12 20:00] VITALS: BP 97/63
[2020-05-13] MEDS: MIDODRINE 10 MG PEG SCH ×3 (06:00→22:00)
[2020-05-13] MEDS: OMEPRAZOLE 20 MG CAPSULE.DR GT SCH (06:41)
[2020-05-13] MEDS: TWOCAL HN 1,000 ML LIQUID PEG PRN (06:41)
[2020-05-13] MEDS: MULTIVIT, IRON, MIN NO. 8, FA TABLET GT SCH (06:41)
[2020-05-13 07:51] VITALS: BP 109/60
[2020-05-13] MEDS: FERROUS SULFATE 330 MG/7.5 ML UDC- FOR SA ONLY GT SCH ×2 (08:52→20:13)
[2020-05-13] MEDS: DOCUSATE SODIUM 100 MG/10 ML LIQUID UDC GT SCH (08:52)
[2020-05-13] MEDS: PROTEIN SUPPLEMENT (PROSTAT) 30 ML LIQUID PEG SCH ×2 (08:53→20:13)
[2020-05-13] MEDS: TIZANIDINE HCL 4 MG TABLET PEG SCH ×2 (08:53→17:26)
[2020-05-13] MEDS: NUTRISOURCE FIBER 4 GM PACKET PEG SCH ×2 (08:53→20:13)
[2020-05-13] MEDS: Z GUARD REMEDY PASTE 57 GM TUBE TOP SCH ×2 (08:53→20:13)
[2020-05-13] MEDS: HYDROGEN PEROXIDE 3% 118 ML BOTTLE TP SCH ×2 (09:56→20:58)
[2020-05-13] MEDS: ACETAMINOPHEN 650 MG/20 ML UDC- SA PATIENTS-PAIN ONLY PEG SCH (17:26)
[2020-05-13 20:00] VITALS: BP 111/81
[2020-05-14] MEDS: OMEPRAZOLE 20 MG CAPSULE.DR GT SCH (05:06)
[2020-05-14 05:07] VITALS: BP 111/67
[2020-05-14] MEDS: MIDODRINE 10 MG PEG SCH ×3 (05:07→22:00)
[2020-05-14 07:45] VITALS: BP 100/58
[2020-05-14] MEDS: DOCUSATE SODIUM 100 MG/10 ML LIQUID UDC GT SCH (09:03)
[2020-05-14] MEDS: NUTRISOURCE FIBER 4 GM PACKET PEG SCH ×2 (09:03→20:46)
[2020-05-14] MEDS: FERROUS SULFATE 330 MG/7.5 ML UDC- FOR SA ONLY GT SCH ×2 (09:03→20:45)
[2020-05-14] MEDS: PROTEIN SUPPLEMENT (PROSTAT) 30 ML LIQUID PEG SCH ×2 (09:03→20:46)
[2020-05-14] MEDS: TIZANIDINE HCL 4 MG TABLET PEG SCH ×2 (09:05→16:25)
[2020-05-14] MEDS: Z GUARD REMEDY PASTE 57 GM TUBE TOP SCH ×2 (09:05→20:46)
[2020-05-14] MEDS: HYDROGEN PEROXIDE 3% 118 ML BOTTLE TP SCH ×2 (09:50→19:41)
--- NOTE | 2020-05-14 14:15 | NUR ---
2:00pm: This SW met with patient's mother Morena, and completed patient's annual [employer] Redetermination Form. Morena signed the form. SW provided Morena with a copy of the form. SW will mail the annual [employer] Redetermination Form.
--- NOTE | 2020-05-14 16:00 | NUR ---
Video chat done with pt's mother.
[2020-05-14] MEDS: ACETAMINOPHEN 650 MG/20 ML UDC- SA PATIENTS-PAIN ONLY PEG SCH (16:25)
[2020-05-14 20:50] VITALS: BP 124/75
[2020-05-15] MEDS: TWOCAL HN 1,000 ML LIQUID PEG PRN (01:24)
[2020-05-15 05:50] VITALS: BP 109/67
[2020-05-15] MEDS: OMEPRAZOLE 20 MG CAPSULE.DR GT SCH (05:50)
[2020-05-15] MEDS: MIDODRINE 10 MG PEG SCH ×3 (05:50→21:10)
[2020-05-15] MEDS: MULTIVIT, IRON, MIN NO. 8, FA TABLET GT SCH (05:50)
[2020-05-15] MEDS: TIZANIDINE HCL 4 MG TABLET PEG SCH ×2 (08:27→16:46)
[2020-05-15] MEDS: Z GUARD REMEDY PASTE 57 GM TUBE TOP SCH ×2 (08:27→21:10)
[2020-05-15] MEDS: DOCUSATE SODIUM 100 MG/10 ML LIQUID UDC GT SCH (08:27)
[2020-05-15] MEDS: NUTRISOURCE FIBER 4 GM PACKET PEG SCH ×2 (08:27→21:10)
[2020-05-15] MEDS: PROTEIN SUPPLEMENT (PROSTAT) 30 ML LIQUID PEG SCH ×2 (08:27→21:10)
[2020-05-15] MEDS: FERROUS SULFATE 330 MG/7.5 ML UDC- FOR SA ONLY GT SCH ×2 (08:27→21:10)
[2020-05-15] MEDS: HYDROGEN PEROXIDE 3% 118 ML BOTTLE TP SCH ×2 (09:00→20:14)
[2020-05-15 11:03] VITALS: BP 120/60
--- NOTE | 2020-05-15 12:16 | NUR ---
New orders noted and carried out.
--- NOTE | 2020-05-15 15:30 | NUR ---
VIDEO CHAT PROVIDED TO PT'S MOTHER.
[2020-05-15] MEDS: ACETAMINOPHEN 650 MG/20 ML UDC- SA PATIENTS-PAIN ONLY PEG SCH (16:45)
[2020-05-15 20:00] VITALS: BP 105/58
[2020-05-16] MEDS: MIDODRINE 10 MG PEG SCH ×3 (05:36→22:00)
[2020-05-16] MEDS: OMEPRAZOLE 20 MG CAPSULE.DR GT SCH (05:36)
[2020-05-16 07:50] VITALS: BP 118/70
[2020-05-16] MEDS: TIZANIDINE HCL 4 MG TABLET PEG SCH ×2 (08:33→16:45)
[2020-05-16] MEDS: Z GUARD REMEDY PASTE 57 GM TUBE TOP SCH ×2 (08:33→21:59)
[2020-05-16] MEDS: DOCUSATE SODIUM 100 MG/10 ML LIQUID UDC GT SCH (08:33)
[2020-05-16] MEDS: PROTEIN SUPPLEMENT (PROSTAT) 30 ML LIQUID PEG SCH ×2 (08:33→21:59)
[2020-05-16] MEDS: FERROUS SULFATE 330 MG/7.5 ML UDC- FOR SA ONLY GT SCH ×2 (08:33→21:59)
[2020-05-16] MEDS: NUTRISOURCE FIBER 4 GM PACKET PEG SCH ×2 (08:33→21:59)
[2020-05-16] MEDS: HYDROGEN PEROXIDE 3% 118 ML BOTTLE TP SCH ×2 (09:01→21:06)
[2020-05-16] MEDS: ACETAMINOPHEN 650 MG/20 ML UDC- SA PATIENTS-PAIN ONLY PEG SCH (16:45)
[2020-05-16 20:00] VITALS: BP 112/63
[2020-05-17] MEDS: TWOCAL HN 1,000 ML LIQUID PEG PRN (00:17)
[2020-05-17 06:00] VITALS: BP 105/56
[2020-05-17] MEDS: MIDODRINE 10 MG PEG SCH ×3 (06:16→21:52)
[2020-05-17] MEDS: OMEPRAZOLE 20 MG CAPSULE.DR GT SCH (06:16)
[2020-05-17] MEDS: MULTIVIT, IRON, MIN NO. 8, FA TABLET GT SCH (06:16)
[2020-05-17 06:42] LABS: BASOPHILS % (AUTO) 0.3 % (0.0-2.0); EOSINOPHILS # (AUTO) 0.1 K/uL (0.0-0.7); EOSINOPHILS % (AUTO) 0.9 % (0.0-7.0); HEMATOCRIT 37.5 % (31.2-41.9); HEMOGLOBIN 12.7 g/dL (10.9-14.3); LYMPHOCYTES # (AUTO) 1.3 K/uL (20.0-40.0); LYMPHOCYTES % (AUTO) 19.7 % (20.5-51.5); MEAN CORPUSCULAR HEMOGLOBIN 32.1 uug (24.7-32.8); MEAN CORPUSCULAR HGB CONC 34 g/dL (32.3-35.6); MEAN CORPUSCULAR VOLUME 94.8 fL (75.5-95.3); MONOCYTES # (AUTO) 0.6 K/uL (2.0-10.0); MONOCYTES % (AUTO) 8.9 % (0.0-11.0); NEUTROPHILS # (AUTO) 4.6 K/uL (1.8-8.9); NEUTROPHILS % (AUTO) 70.2 % (38.5-71.5); PLATELET COUNT (AUTO) 195 K/uL (179-408); RED BLOOD CELL COUNT(AUTO) 3.95 MIL/uL (3.63-4.92); WHITE BLOOD COUNT (AUTO) 6.6 K/uL (3.8-11.8)
[2020-05-17 06:59] LABS: BILIRUBIN,TOTAL 0.3 mg/dL (0.2-1.0); CREATININE 0.6 mg/dL (0.6-1.3); MAGNESIUM 2.1 mg/dL (1.8-2.4); PHOSPHOROUS 3.5 mg/dL (2.5-4.9); POTASSIUM 3.8 mmol/L (3.5-5.1); TOTAL PROTEIN, SERUM 7.4 g/dL (6.4-8.2)
[2020-05-17 07:29] VITALS: BP 118/65
[2020-05-17] MEDS: PROTEIN SUPPLEMENT (PROSTAT) 30 ML LIQUID PEG SCH ×2 (08:27→21:52)
[2020-05-17] MEDS: NUTRISOURCE FIBER 4 GM PACKET PEG SCH ×2 (08:27→21:52)
[2020-05-17] MEDS: DOCUSATE SODIUM 100 MG/10 ML LIQUID UDC GT SCH (08:27)
[2020-05-17] MEDS: FERROUS SULFATE 330 MG/7.5 ML UDC- FOR SA ONLY GT SCH ×2 (08:27→21:52)
[2020-05-17] MEDS: TIZANIDINE HCL 4 MG TABLET PEG SCH ×2 (08:27→17:05)
[2020-05-17] MEDS: Z GUARD REMEDY PASTE 57 GM TUBE TOP SCH ×2 (08:28→21:52)
[2020-05-17] MEDS: HYDROGEN PEROXIDE 3% 118 ML BOTTLE TP SCH ×2 (08:44→21:41)
--- NOTE | 2020-05-17 11:29 | NUR ---
NEW ORDER CARRIED OUT FROM DR. FRANK FOR COVID 19 TEST ([facility] REQUIREMENT) AND PT'S MOTHER IN AGREEMENT.
--- NOTE | 2020-05-17 16:19 | NUR ---
Video call provided with pt. and family (mother). No complaint at this time. Will continue to monitor.
[2020-05-17] MEDS: ACETAMINOPHEN 650 MG/20 ML UDC- SA PATIENTS-PAIN ONLY PEG SCH (17:05)
--- NOTE | 2020-05-17 17:12 | NUR ---
SEEN BY CHI Jones AND DR. LYNNE AND WITH NNO.
[2020-05-17 20:14] VITALS: BP 95/54
[2020-05-18 05:00] VITALS: BP 103/63
[2020-05-18] MEDS: OMEPRAZOLE 20 MG CAPSULE.DR GT SCH (05:55)
[2020-05-18] MEDS: MIDODRINE 10 MG PEG SCH ×3 (05:55→22:18)
[2020-05-18 07:25] VITALS: BP 130/61
[2020-05-18] MEDS: NUTRISOURCE FIBER 4 GM PACKET PEG SCH ×2 (08:58→20:06)
[2020-05-18] MEDS: DOCUSATE SODIUM 100 MG/10 ML LIQUID UDC GT SCH (08:58)
[2020-05-18] MEDS: Z GUARD REMEDY PASTE 57 GM TUBE TOP SCH ×2 (08:58→20:07)
[2020-05-18] MEDS: FERROUS SULFATE 330 MG/7.5 ML UDC- FOR SA ONLY GT SCH ×2 (08:58→20:06)
[2020-05-18] MEDS: PROTEIN SUPPLEMENT (PROSTAT) 30 ML LIQUID PEG SCH ×2 (08:58→20:06)
[2020-05-18] MEDS: TIZANIDINE HCL 4 MG TABLET PEG SCH ×2 (08:58→17:00)
--- NOTE | 2020-05-18 12:21 | NUR ---
JEY mailed patient's annual [facility] Redetermination form to: [facility] - [place] [address], [address] [place] [address]
[2020-05-18] MEDS: ACETAMINOPHEN 650 MG/20 ML UDC- SA PATIENTS-PAIN ONLY PEG SCH (17:00)
--- NOTE | 2020-05-18 19:14 | NUR ---
Pt's mother Morena,notified Covid 19 results was negative.
[2020-05-18 20:14] VITALS: BP 96/52
[2020-05-18] MEDS: HYDROGEN PEROXIDE 3% 118 ML BOTTLE TP SCH (21:18)
[2020-05-19] MEDS: TWOCAL HN 1,000 ML LIQUID PEG PRN (01:00)
[2020-05-19] MEDS: MIDODRINE 10 MG PEG SCH ×3 (06:11→22:15)
[2020-05-19] MEDS: OMEPRAZOLE 20 MG CAPSULE.DR GT SCH (06:11)
[2020-05-19] MEDS: MULTIVIT, IRON, MIN NO. 8, FA TABLET GT SCH (06:12)
[2020-05-19 07:23] VITALS: BP 111/58
[2020-05-19] MEDS: TIZANIDINE HCL 4 MG TABLET PEG SCH ×2 (08:56→17:30)
[2020-05-19] MEDS: DOCUSATE SODIUM 100 MG/10 ML LIQUID UDC GT SCH (08:56)
[2020-05-19] MEDS: FERROUS SULFATE 330 MG/7.5 ML UDC- FOR SA ONLY GT SCH ×2 (08:56→21:00)
[2020-05-19] MEDS: NUTRISOURCE FIBER 4 GM PACKET PEG SCH ×2 (08:56→21:00)
[2020-05-19] MEDS: PROTEIN SUPPLEMENT (PROSTAT) 30 ML LIQUID PEG SCH ×2 (08:56→21:00)
[2020-05-19] MEDS: Z GUARD REMEDY PASTE 57 GM TUBE TOP SCH ×2 (08:56→21:00)
[2020-05-19] MEDS: HYDROGEN PEROXIDE 3% 118 ML BOTTLE TP SCH ×2 (09:30→20:57)
--- NOTE | 2020-05-19 15:30 | NUR ---
Provided video chat to pt. and her mother with no problem noted, pt. remains comfortable all needs attended and anticipated.
[2020-05-19] MEDS: ACETAMINOPHEN 650 MG/20 ML UDC- SA PATIENTS-PAIN ONLY PEG SCH (17:30)
[2020-05-19 20:03] VITALS: BP 93/54
[2020-05-20] MEDS: OMEPRAZOLE 20 MG CAPSULE.DR GT SCH (06:02)
[2020-05-20] MEDS: MIDODRINE 10 MG PEG SCH ×3 (06:02→21:57)
[2020-05-20 07:49] VITALS: BP_SYST 106; BP_SYST 140; BP_DIAS 45; BP_DIAS 80
[2020-05-20] MEDS: PROTEIN SUPPLEMENT (PROSTAT) 30 ML LIQUID PEG SCH ×2 (08:57→20:06)
[2020-05-20] MEDS: FERROUS SULFATE 330 MG/7.5 ML UDC- FOR SA ONLY GT SCH ×2 (08:57→20:06)
[2020-05-20] MEDS: Z GUARD REMEDY PASTE 57 GM TUBE TOP SCH ×2 (08:57→20:06)
[2020-05-20] MEDS: DOCUSATE SODIUM 100 MG/10 ML LIQUID UDC GT SCH (08:57)
[2020-05-20] MEDS: NUTRISOURCE FIBER 4 GM PACKET PEG SCH ×2 (08:57→20:06)
[2020-05-20] MEDS: TIZANIDINE HCL 4 MG TABLET PEG SCH ×2 (08:57→17:00)
[2020-05-20] MEDS: HYDROGEN PEROXIDE 3% 118 ML BOTTLE TP SCH ×2 (11:50→20:56)
[2020-05-20] MEDS: ACETAMINOPHEN 650 MG/20 ML UDC- SA PATIENTS-PAIN ONLY PEG SCH (17:00)
--- NOTE | 2020-05-20 17:30 | NUR ---
PT. WAS SEEN BY DR. FRANK AND WITH NNO.
[2020-05-20 20:35] VITALS: BP 94/59
[2020-05-21] MEDS: TWOCAL HN 1,000 ML LIQUID PEG PRN (00:30)
[2020-05-21] MEDS: OMEPRAZOLE 20 MG CAPSULE.DR GT SCH (05:28)
[2020-05-21] MEDS: MIDODRINE 10 MG PEG SCH ×3 (05:28→21:19)
[2020-05-21] MEDS: MULTIVIT, IRON, MIN NO. 8, FA TABLET GT SCH (05:39)
[2020-05-21 08:07] VITALS: BP 112/65
[2020-05-21] MEDS: DOCUSATE SODIUM 100 MG/10 ML LIQUID UDC GT SCH (08:56)
[2020-05-21] MEDS: PROTEIN SUPPLEMENT (PROSTAT) 30 ML LIQUID PEG SCH ×2 (08:57→21:19)
[2020-05-21] MEDS: FERROUS SULFATE 330 MG/7.5 ML UDC- FOR SA ONLY GT SCH ×2 (08:57→21:18)
[2020-05-21] MEDS: NUTRISOURCE FIBER 4 GM PACKET PEG SCH ×2 (08:57→21:18)
[2020-05-21] MEDS: Z GUARD REMEDY PASTE 57 GM TUBE TOP SCH ×2 (08:58→21:19)
[2020-05-21] MEDS: TIZANIDINE HCL 4 MG TABLET PEG SCH ×2 (08:58→16:32)
[2020-05-21] MEDS: HYDROGEN PEROXIDE 3% 118 ML BOTTLE TP SCH ×2 (09:24→21:21)
--- NOTE | 2020-05-21 16:00 | NUR ---
Zoom meeting provided for patient and momnabil.
[2020-05-21] MEDS: ACETAMINOPHEN 650 MG/20 ML UDC- SA PATIENTS-PAIN ONLY PEG SCH (16:32)
--- NOTE | 2020-05-21 17:04 | NUR ---
SEEN BY DR. LYNNE AND WITH NNO.
[2020-05-21 22:18] VITALS: BP 102/52
[2020-05-22] MEDS: MIDODRINE 10 MG PEG SCH ×3 (05:50→21:37)
[2020-05-22] MEDS: OMEPRAZOLE 20 MG CAPSULE.DR GT SCH (05:50)
[2020-05-22 06:38] VITALS: BP 105/63
[2020-05-22 07:56] VITALS: BP 109/61
[2020-05-22] MEDS: NUTRISOURCE FIBER 4 GM PACKET PEG SCH ×2 (08:26→20:18)
[2020-05-22] MEDS: FERROUS SULFATE 330 MG/7.5 ML UDC- FOR SA ONLY GT SCH ×2 (08:26→20:18)
[2020-05-22] MEDS: DOCUSATE SODIUM 100 MG/10 ML LIQUID UDC GT SCH (08:26)
[2020-05-22] MEDS: TIZANIDINE HCL 4 MG TABLET PEG SCH ×2 (08:27→17:44)
[2020-05-22] MEDS: PROTEIN SUPPLEMENT (PROSTAT) 30 ML LIQUID PEG SCH ×2 (08:27→20:18)
[2020-05-22] MEDS: Z GUARD REMEDY PASTE 57 GM TUBE TOP SCH ×2 (08:33→20:18)
[2020-05-22] MEDS: HYDROGEN PEROXIDE 3% 118 ML BOTTLE TP SCH ×2 (08:46→21:13)
--- NOTE | 2020-05-22 15:30 | NUR ---
Video zoom provided for patient, mother and brother.
[2020-05-22] MEDS: ACETAMINOPHEN 650 MG/20 ML UDC- SA PATIENTS-PAIN ONLY PEG SCH (17:44)
[2020-05-22] MEDS: TWOCAL HN 1,000 ML LIQUID PEG PRN (17:44)
[2020-05-23] MEDS: MIDODRINE 10 MG PEG SCH ×3 (05:21→21:33)
[2020-05-23] MEDS: OMEPRAZOLE 20 MG CAPSULE.DR GT SCH (05:21)
[2020-05-23] MEDS: MULTIVIT, IRON, MIN NO. 8, FA TABLET GT SCH (05:31)
[2020-05-23 07:22] VITALS: BP 109/60
[2020-05-23] MEDS: TIZANIDINE HCL 4 MG TABLET PEG SCH ×2 (09:00→16:28)
[2020-05-23] MEDS: FERROUS SULFATE 330 MG/7.5 ML UDC- FOR SA ONLY GT SCH ×2 (09:00→21:33)
[2020-05-23] MEDS: Z GUARD REMEDY PASTE 57 GM TUBE TOP SCH ×2 (09:00→21:33)
[2020-05-23] MEDS: DOCUSATE SODIUM 100 MG/10 ML LIQUID UDC GT SCH (09:00)
[2020-05-23] MEDS: PROTEIN SUPPLEMENT (PROSTAT) 30 ML LIQUID PEG SCH ×2 (09:00→21:33)
[2020-05-23] MEDS: NUTRISOURCE FIBER 4 GM PACKET PEG SCH ×2 (09:00→21:33)
[2020-05-23] MEDS: HYDROGEN PEROXIDE 3% 118 ML BOTTLE TP SCH ×2 (09:16→21:04)
[2020-05-23] MEDS: ACETAMINOPHEN 650 MG/20 ML UDC- SA PATIENTS-PAIN ONLY PEG SCH (16:27)
--- NOTE | 2020-05-23 17:51 | NUR ---
Video call provided with pt. and family members (mother and brother). No complaints at this time. Will continue to monitor.
[2020-05-23 22:48] VITALS: BP 91/48
[2020-05-24] MEDS: MIDODRINE 10 MG PEG SCH ×3 (05:53→21:09)
[2020-05-24] MEDS: OMEPRAZOLE 20 MG CAPSULE.DR GT SCH (05:53)
[2020-05-24 07:16] VITALS: BP 102/58
[2020-05-24] MEDS: HYDROGEN PEROXIDE 3% 118 ML BOTTLE TP SCH ×2 (08:39→21:12)
[2020-05-24] MEDS: DOCUSATE SODIUM 100 MG/10 ML LIQUID UDC GT SCH (09:10)
[2020-05-24] MEDS: PROTEIN SUPPLEMENT (PROSTAT) 30 ML LIQUID PEG SCH ×2 (09:10→21:09)
[2020-05-24] MEDS: FERROUS SULFATE 330 MG/7.5 ML UDC- FOR SA ONLY GT SCH ×2 (09:10→21:09)
[2020-05-24] MEDS: TIZANIDINE HCL 4 MG TABLET PEG SCH ×2 (09:10→17:00)
[2020-05-24] MEDS: NUTRISOURCE FIBER 4 GM PACKET PEG SCH ×2 (09:10→21:09)
[2020-05-24] MEDS: Z GUARD REMEDY PASTE 57 GM TUBE TOP SCH ×2 (09:10→21:09)
[2020-05-24] MEDS: ACETAMINOPHEN 650 MG/20 ML UDC- SA PATIENTS-PAIN ONLY PEG SCH (17:00)
--- NOTE | 2020-05-24 18:42 | NUR ---
Video call provided with the pt. and family (mother & brother). No complaint at this time. Will continue to monitor.
[2020-05-24 20:39] VITALS: BP 106/61
[2020-05-25] MEDS: MIDODRINE 10 MG PEG SCH ×3 (05:33→22:00)
[2020-05-25] MEDS: MULTIVIT, IRON, MIN NO. 8, FA TABLET GT SCH (05:33)
[2020-05-25] MEDS: OMEPRAZOLE 20 MG CAPSULE.DR GT SCH (05:33)
[2020-05-25 07:22] VITALS: BP 109/62
[2020-05-25] MEDS: NUTRISOURCE FIBER 4 GM PACKET PEG SCH ×2 (08:52→20:06)
[2020-05-25] MEDS: FERROUS SULFATE 330 MG/7.5 ML UDC- FOR SA ONLY GT SCH ×2 (08:52→20:06)
[2020-05-25] MEDS: PROTEIN SUPPLEMENT (PROSTAT) 30 ML LIQUID PEG SCH ×2 (08:52→20:06)
[2020-05-25] MEDS: DOCUSATE SODIUM 100 MG/10 ML LIQUID UDC GT SCH (08:52)
[2020-05-25] MEDS: TIZANIDINE HCL 4 MG TABLET PEG SCH ×2 (08:53→17:00)
[2020-05-25] MEDS: Z GUARD REMEDY PASTE 57 GM TUBE TOP SCH ×2 (08:53→20:06)
[2020-05-25] MEDS: HYDROGEN PEROXIDE 3% 118 ML BOTTLE TP SCH ×2 (09:50→20:14)
--- NOTE | 2020-05-25 10:25 | NUR ---
NEW ORDER CARRIED OUT FROM DR FRANK RECOMMENDED BY PT. NEFF. FOR LEFT FOOT EVAL POSITIONING.
[2020-05-25] MEDS: ACETAMINOPHEN 650 MG/20 ML UDC- SA PATIENTS-PAIN ONLY PEG SCH (17:00)
--- NOTE | 2020-05-25 18:59 | NUR ---
Video call provided with pt. and family (mother& brother). No complaints at this time. Will continue to monitor.
[2020-05-25 20:09] VITALS: BP 107/63
--- NOTE | 2020-05-26 04:16 | NUR ---
Jose from the Lab called RE: patient's covid 19 test resulted and was negative.
[2020-05-26] MEDS: MIDODRINE 10 MG PEG SCH ×3 (06:05→21:52)
[2020-05-26] MEDS: OMEPRAZOLE 20 MG CAPSULE.DR GT SCH (06:05)
[2020-05-26 08:01] VITALS: BP 97/51
[2020-05-26] MEDS: NUTRISOURCE FIBER 4 GM PACKET PEG SCH ×2 (09:00→21:52)
[2020-05-26] MEDS: HYDROGEN PEROXIDE 3% 118 ML BOTTLE TP SCH ×2 (09:15→20:50)
[2020-05-26] MEDS: FERROUS SULFATE 330 MG/7.5 ML UDC- FOR SA ONLY GT SCH ×2 (09:38→21:52)
[2020-05-26] MEDS: DOCUSATE SODIUM 100 MG/10 ML LIQUID UDC GT SCH (09:38)
[2020-05-26] MEDS: TIZANIDINE HCL 4 MG TABLET PEG SCH ×2 (09:39→17:00)
[2020-05-26] MEDS: PROTEIN SUPPLEMENT (PROSTAT) 30 ML LIQUID PEG SCH ×2 (09:39→21:52)
[2020-05-26] MEDS: Z GUARD REMEDY PASTE 57 GM TUBE TOP SCH ×2 (09:39→21:52)
[2020-05-26] MEDS: ACETAMINOPHEN 650 MG/20 ML UDC- SA PATIENTS-PAIN ONLY PEG SCH (17:00)
--- NOTE | 2020-05-26 19:07 | NUR ---
patient's Mother Morena,notified Covid 19 result negative.
[2020-05-26 20:00] VITALS: BP 95/55
[2020-05-27] MEDS: OMEPRAZOLE 20 MG CAPSULE.DR GT SCH (05:45)
[2020-05-27] MEDS: MULTIVIT, IRON, MIN NO. 8, FA TABLET GT SCH (05:45)
[2020-05-27] MEDS: MIDODRINE 10 MG PEG SCH ×3 (05:45→22:31)
[2020-05-27 07:45] VITALS: BP 109/63
[2020-05-27] MEDS: DOCUSATE SODIUM 100 MG/10 ML LIQUID UDC GT SCH (08:59)
[2020-05-27] MEDS: FERROUS SULFATE 330 MG/7.5 ML UDC- FOR SA ONLY GT SCH ×2 (08:59→20:21)
[2020-05-27] MEDS: HYDROGEN PEROXIDE 3% 118 ML BOTTLE TP SCH ×2 (09:00→21:12)
[2020-05-27] MEDS: PROTEIN SUPPLEMENT (PROSTAT) 30 ML LIQUID PEG SCH ×2 (09:00→20:21)
[2020-05-27] MEDS: NUTRISOURCE FIBER 4 GM PACKET PEG SCH ×2 (09:00→20:21)
[2020-05-27] MEDS: Z GUARD REMEDY PASTE 57 GM TUBE TOP SCH ×2 (09:01→20:21)
[2020-05-27] MEDS: TIZANIDINE HCL 4 MG TABLET PEG SCH ×2 (09:01→17:19)
[2020-05-27] MEDS: ACETAMINOPHEN 650 MG/20 ML UDC- SA PATIENTS-PAIN ONLY PEG SCH (17:19)
[2020-05-27 20:00] VITALS: BP 98/59
[2020-05-28] MEDS: TWOCAL HN 1,000 ML LIQUID PEG PRN (02:20)
[2020-05-28] MEDS: MIDODRINE 10 MG PEG SCH ×3 (06:06→21:52)
[2020-05-28] MEDS: OMEPRAZOLE 20 MG CAPSULE.DR GT SCH (06:06)
[2020-05-28 06:07] VITALS: BP 114/67
[2020-05-28 08:02] VITALS: BP 102/63
[2020-05-28] MEDS: NUTRISOURCE FIBER 4 GM PACKET PEG SCH ×2 (08:37→21:52)
[2020-05-28] MEDS: FERROUS SULFATE 330 MG/7.5 ML UDC- FOR SA ONLY GT SCH ×2 (08:37→21:52)
[2020-05-28] MEDS: PROTEIN SUPPLEMENT (PROSTAT) 30 ML LIQUID PEG SCH ×2 (08:37→21:52)
[2020-05-28] MEDS: DOCUSATE SODIUM 100 MG/10 ML LIQUID UDC GT SCH (08:37)
[2020-05-28] MEDS: TIZANIDINE HCL 4 MG TABLET PEG SCH ×2 (08:38→17:27)
[2020-05-28] MEDS: Z GUARD REMEDY PASTE 57 GM TUBE TOP SCH ×2 (08:38→21:52)
[2020-05-28] MEDS: HYDROGEN PEROXIDE 3% 118 ML BOTTLE TP SCH ×2 (09:21→21:02)
[2020-05-28] MEDS: ACETAMINOPHEN 650 MG/20 ML UDC- SA PATIENTS-PAIN ONLY PEG SCH (17:27)
[2020-05-28 20:50] VITALS: BP 103/52
[2020-05-29] MEDS: MULTIVIT, IRON, MIN NO. 8, FA TABLET GT SCH (06:01)
[2020-05-29] MEDS: OMEPRAZOLE 20 MG CAPSULE.DR GT SCH (06:01)
[2020-05-29] MEDS: MIDODRINE 10 MG PEG SCH ×3 (06:01→22:29)
[2020-05-29 06:58] VITALS: BP 98/50
[2020-05-29 07:38] VITALS: BP 104/52
[2020-05-29] MEDS: HYDROGEN PEROXIDE 3% 118 ML BOTTLE TP SCH ×2 (08:35→20:08)
[2020-05-29] MEDS: FERROUS SULFATE 330 MG/7.5 ML UDC- FOR SA ONLY GT SCH ×2 (08:55→20:13)
[2020-05-29] MEDS: PROTEIN SUPPLEMENT (PROSTAT) 30 ML LIQUID PEG SCH ×2 (08:55→20:13)
[2020-05-29] MEDS: TIZANIDINE HCL 4 MG TABLET PEG SCH ×2 (08:55→16:24)
[2020-05-29] MEDS: DOCUSATE SODIUM 100 MG/10 ML LIQUID UDC GT SCH (08:55)
[2020-05-29] MEDS: Z GUARD REMEDY PASTE 57 GM TUBE TOP SCH ×2 (08:55→20:14)
[2020-05-29] MEDS: NUTRISOURCE FIBER 4 GM PACKET PEG SCH ×2 (09:00→20:13)
--- NOTE | 2020-05-29 09:00 | NUR ---
Nutrisource fiber not available per dietary.
[2020-05-29 14:30] VITALS: BP 96/56
--- NOTE | 2020-05-29 15:30 | NUR ---
video chat provided to patient with mother.
[2020-05-29] MEDS: ACETAMINOPHEN 650 MG/20 ML UDC- SA PATIENTS-PAIN ONLY PEG SCH (16:25)
[2020-05-29 20:22] VITALS: BP 105/59
[2020-05-30] MEDS: MIDODRINE 10 MG PEG SCH ×3 (05:28→21:52)
[2020-05-30] MEDS: TWOCAL HN 1,000 ML LIQUID PEG PRN (05:28)
[2020-05-30] MEDS: OMEPRAZOLE 20 MG CAPSULE.DR GT SCH (05:28)
[2020-05-30 07:41] VITALS: BP 96/57
[2020-05-30] MEDS: HYDROGEN PEROXIDE 3% 118 ML BOTTLE TP SCH ×2 (08:05→20:37)
[2020-05-30] MEDS: DOCUSATE SODIUM 100 MG/10 ML LIQUID UDC GT SCH (09:00)
[2020-05-30] MEDS: FERROUS SULFATE 330 MG/7.5 ML UDC- FOR SA ONLY GT SCH ×2 (09:01→21:52)
[2020-05-30] MEDS: Z GUARD REMEDY PASTE 57 GM TUBE TOP SCH ×2 (09:01→21:52)
[2020-05-30] MEDS: NUTRISOURCE FIBER 4 GM PACKET PEG SCH ×2 (09:01→21:52)
[2020-05-30] MEDS: PROTEIN SUPPLEMENT (PROSTAT) 30 ML LIQUID PEG SCH ×2 (09:01→21:52)
[2020-05-30] MEDS: TIZANIDINE HCL 4 MG TABLET PEG SCH ×2 (09:01→17:10)
[2020-05-30] MEDS: ACETAMINOPHEN 650 MG/20 ML UDC- SA PATIENTS-PAIN ONLY PEG SCH (17:10)
--- NOTE | 2020-05-30 17:10 | NUR ---
ZOOM PROVIDED TO MOTHER.
[2020-05-30 20:16] VITALS: BP 108/60
[2020-05-31] MEDS: MULTIVIT, IRON, MIN NO. 8, FA TABLET GT SCH (05:36)
[2020-05-31] MEDS: MIDODRINE 10 MG PEG SCH ×3 (05:36→21:15)
[2020-05-31] MEDS: OMEPRAZOLE 20 MG CAPSULE.DR GT SCH (05:36)
[2020-05-31 07:35] VITALS: BP 105/60
[2020-05-31] MEDS: DOCUSATE SODIUM 100 MG/10 ML LIQUID UDC GT SCH (08:32)
[2020-05-31] MEDS: PROTEIN SUPPLEMENT (PROSTAT) 30 ML LIQUID PEG SCH ×2 (08:33→21:15)
[2020-05-31] MEDS: FERROUS SULFATE 330 MG/7.5 ML UDC- FOR SA ONLY GT SCH ×2 (08:33→21:15)
[2020-05-31] MEDS: TIZANIDINE HCL 4 MG TABLET PEG SCH ×2 (08:33→16:07)
[2020-05-31] MEDS: NUTRISOURCE FIBER 4 GM PACKET PEG SCH ×2 (08:33→21:15)
[2020-05-31] MEDS: Z GUARD REMEDY PASTE 57 GM TUBE TOP SCH ×2 (08:34→21:15)
[2020-05-31] MEDS: HYDROGEN PEROXIDE 3% 118 ML BOTTLE TP SCH ×2 (09:02→21:26)
[2020-05-31] MEDS: ACETAMINOPHEN 650 MG/20 ML UDC- SA PATIENTS-PAIN ONLY PEG SCH (16:07)
--- NOTE | 2020-05-31 16:25 | NUR ---
ZOOM PROVIDED TO MOTHER.
[2020-05-31 19:57] VITALS: BP 96/56
[2020-06-01] MEDS: MIDODRINE 10 MG PEG SCH ×3 (05:32→22:04)
[2020-06-01] MEDS: OMEPRAZOLE 20 MG CAPSULE.DR GT SCH (05:32)
[2020-06-01 07:27] VITALS: BP 101/71
[2020-06-01] MEDS: HYDROGEN PEROXIDE 3% 118 ML BOTTLE TP SCH ×2 (09:00→20:51)
[2020-06-01] MEDS: NUTRISOURCE FIBER 4 GM PACKET PEG SCH ×2 (09:40→20:44)
[2020-06-01] MEDS: PROTEIN SUPPLEMENT (PROSTAT) 30 ML LIQUID PEG SCH ×2 (09:40→20:44)
[2020-06-01] MEDS: DOCUSATE SODIUM 100 MG/10 ML LIQUID UDC GT SCH (09:40)
[2020-06-01] MEDS: FERROUS SULFATE 330 MG/7.5 ML UDC- FOR SA ONLY GT SCH ×2 (09:40→20:44)
[2020-06-01] MEDS: Z GUARD REMEDY PASTE 57 GM TUBE TOP SCH ×2 (09:41→20:45)
[2020-06-01] MEDS: TIZANIDINE HCL 4 MG TABLET PEG SCH ×2 (09:41→17:06)
[2020-06-01 12:59] VITALS: BP 94/50
--- NOTE | 2020-06-01 15:22 | NUR ---
JEY received patient's Medical Clerical Assistant Payee Report form from [employer]. JEY forwarded this form to Logan Gonsales in accounting, and informed him via email that the form was being sent to him via interoffice mail, for completion.
--- NOTE | 2020-06-01 15:30 | NUR ---
VIDEO CHAT DONE WITH PT'S MOTHER.
--- NOTE | 2020-06-01 15:30 | NUR ---
video chat provided to patient's mother.
--- NOTE | 2020-06-01 17:00 | NUR ---
Email sent to the responsible libertarian regarding Covid 19 texting done today
[2020-06-01] MEDS: ACETAMINOPHEN 650 MG/20 ML UDC- SA PATIENTS-PAIN ONLY PEG SCH (17:07)
--- NOTE | 2020-06-01 18:10 | NUR ---
video chat provided to patient's daughter.
[2020-06-01 19:56] VITALS: BP 90/54
--- NOTE | 2020-06-01 21:00 | NUR ---
left middle toe reddish discoloration noted, not swollen or warm to touch, will monitor.
[2020-06-02] MEDS: MULTIVIT, IRON, MIN NO. 8, FA TABLET GT SCH (05:44)
[2020-06-02] MEDS: MIDODRINE 10 MG PEG SCH ×3 (05:44→21:05)
[2020-06-02] MEDS: OMEPRAZOLE 20 MG CAPSULE.DR GT SCH (05:44)
[2020-06-02 07:28] VITALS: BP 126/72
[2020-06-02] MEDS: TIZANIDINE HCL 4 MG TABLET PEG SCH ×2 (08:26→16:36)
[2020-06-02] MEDS: NUTRISOURCE FIBER 4 GM PACKET PEG SCH ×2 (08:26→21:04)
[2020-06-02] MEDS: DOCUSATE SODIUM 100 MG/10 ML LIQUID UDC GT SCH (08:26)
[2020-06-02] MEDS: FERROUS SULFATE 330 MG/7.5 ML UDC- FOR SA ONLY GT SCH ×2 (08:26→21:04)
[2020-06-02] MEDS: PROTEIN SUPPLEMENT (PROSTAT) 30 ML LIQUID PEG SCH ×2 (08:26→21:04)
[2020-06-02] MEDS: Z GUARD REMEDY PASTE 57 GM TUBE TOP SCH ×2 (08:27→21:04)
[2020-06-02] MEDS: HYDROGEN PEROXIDE 3% 118 ML BOTTLE TP SCH ×2 (09:23→21:07)
[2020-06-02 14:15] VITALS: BP 97/61
[2020-06-02] MEDS: ACETAMINOPHEN 650 MG/20 ML UDC- SA PATIENTS-PAIN ONLY PEG SCH (16:36)
[2020-06-02 21:02] VITALS: BP 114/75
[2020-06-03 05:00] VITALS: BP 121/68
[2020-06-03] MEDS: MIDODRINE 10 MG PEG SCH ×3 (06:00→22:26)
[2020-06-03] MEDS: OMEPRAZOLE 20 MG CAPSULE.DR GT SCH (06:16)
[2020-06-03] MEDS: TWOCAL HN 1,000 ML LIQUID PEG PRN (06:16)
[2020-06-03] MEDS: HYDROGEN PEROXIDE 3% 118 ML BOTTLE TP SCH ×2 (08:05→21:20)
[2020-06-03] MEDS: Z GUARD REMEDY PASTE 57 GM TUBE TOP SCH ×2 (09:00→20:22)
[2020-06-03] MEDS: PROTEIN SUPPLEMENT (PROSTAT) 30 ML LIQUID PEG SCH ×2 (09:00→20:22)
[2020-06-03] MEDS: TIZANIDINE HCL 4 MG TABLET PEG SCH ×2 (09:00→17:05)
[2020-06-03] MEDS: FERROUS SULFATE 330 MG/7.5 ML UDC- FOR SA ONLY GT SCH ×2 (09:00→20:22)
[2020-06-03] MEDS: DOCUSATE SODIUM 100 MG/10 ML LIQUID UDC GT SCH (09:00)
[2020-06-03] MEDS: NUTRISOURCE FIBER 4 GM PACKET PEG SCH ×2 (09:00→20:22)
[2020-06-03] MEDS: ACETAMINOPHEN 650 MG/20 ML UDC- SA PATIENTS-PAIN ONLY PEG SCH (17:05)
[2020-06-03 20:55] VITALS: BP 96/58
[2020-06-04] MEDS: MIDODRINE 10 MG PEG SCH ×3 (05:45→21:36)
[2020-06-04] MEDS: OMEPRAZOLE 20 MG CAPSULE.DR GT SCH (05:45)
[2020-06-04] MEDS: MULTIVIT, IRON, MIN NO. 8, FA TABLET GT SCH (05:46)
[2020-06-04 07:51] VITALS: BP 120/64
--- NOTE | 2020-06-04 08:00 | NUR ---
SEEN BYALICIA COTTO N.P. AND WITH DIONISIOO.
[2020-06-04] MEDS: NUTRISOURCE FIBER 4 GM PACKET PEG SCH ×2 (08:50→21:36)
[2020-06-04] MEDS: DOCUSATE SODIUM 100 MG/10 ML LIQUID UDC GT SCH (08:50)
[2020-06-04] MEDS: FERROUS SULFATE 330 MG/7.5 ML UDC- FOR SA ONLY GT SCH ×2 (08:50→21:36)
[2020-06-04] MEDS: Z GUARD REMEDY PASTE 57 GM TUBE TOP SCH ×2 (08:51→21:36)
[2020-06-04] MEDS: PROTEIN SUPPLEMENT (PROSTAT) 30 ML LIQUID PEG SCH ×2 (08:51→21:36)
[2020-06-04] MEDS: TIZANIDINE HCL 4 MG TABLET PEG SCH ×2 (08:51→16:42)
[2020-06-04] MEDS: HYDROGEN PEROXIDE 3% 118 ML BOTTLE TP SCH ×2 (09:00→21:21)
--- NOTE | 2020-06-04 12:04 | NUR ---
SW called patient's mother Morena, , and informed her of the updated visitation guidelines for the subacute unit, based on [facility] and [facility] directives. JEY emailed patient's mother Morena the guidelines and criteria for visitations.
[2020-06-04] MEDS: ACETAMINOPHEN 650 MG/20 ML UDC- SA PATIENTS-PAIN ONLY PEG SCH (16:42)
[2020-06-04] MEDS: TWOCAL HN 1,000 ML LIQUID PEG PRN (16:43)
--- NOTE | 2020-06-04 18:39 | NUR ---
COVID19 TEST FROM 06/01 20 WAS NEGATIVE AND PT'S MOTHER DEMETRICE WAS NOTIFIED.
[2020-06-04 20:37] VITALS: BP 97/61
[2020-06-05] MEDS: MIDODRINE 10 MG PEG SCH ×3 (06:14→21:46)
[2020-06-05] MEDS: OMEPRAZOLE 20 MG CAPSULE.DR GT SCH (06:14)
[2020-06-05 07:55] VITALS: BP 119/60
[2020-06-05] MEDS: HYDROGEN PEROXIDE 3% 118 ML BOTTLE TP SCH ×2 (08:15→21:52)
[2020-06-05] MEDS: NUTRISOURCE FIBER 4 GM PACKET PEG SCH ×2 (08:59→21:46)
[2020-06-05] MEDS: FERROUS SULFATE 330 MG/7.5 ML UDC- FOR SA ONLY GT SCH ×2 (08:59→21:45)
[2020-06-05] MEDS: PROTEIN SUPPLEMENT (PROSTAT) 30 ML LIQUID PEG SCH ×2 (08:59→21:46)
[2020-06-05] MEDS: TIZANIDINE HCL 4 MG TABLET PEG SCH ×2 (08:59→17:21)
[2020-06-05] MEDS: DOCUSATE SODIUM 100 MG/10 ML LIQUID UDC GT SCH (08:59)
[2020-06-05] MEDS: Z GUARD REMEDY PASTE 57 GM TUBE TOP SCH ×2 (09:00→21:46)
[2020-06-05] MEDS: ACETAMINOPHEN 650 MG/20 ML UDC- SA PATIENTS-PAIN ONLY PEG SCH (17:21)
[2020-06-05 20:22] VITALS: BP 105/55
[2020-06-06] MEDS: OMEPRAZOLE 20 MG CAPSULE.DR GT SCH (05:10)
[2020-06-06] MEDS: MIDODRINE 10 MG PEG SCH ×3 (05:10→21:50)
[2020-06-06] MEDS: TWOCAL HN 1,000 ML LIQUID PEG PRN (05:11)
[2020-06-06] MEDS: MULTIVIT, IRON, MIN NO. 8, FA TABLET GT SCH (06:14)
[2020-06-06 07:34] VITALS: BP 101/51
[2020-06-06] MEDS: HYDROGEN PEROXIDE 3% 118 ML BOTTLE TP SCH ×2 (08:24→21:42)
[2020-06-06] MEDS: DOCUSATE SODIUM 100 MG/10 ML LIQUID UDC GT SCH (08:24)
[2020-06-06] MEDS: PROTEIN SUPPLEMENT (PROSTAT) 30 ML LIQUID PEG SCH ×2 (08:24→21:50)
[2020-06-06] MEDS: FERROUS SULFATE 330 MG/7.5 ML UDC- FOR SA ONLY GT SCH ×2 (08:24→21:50)
[2020-06-06] MEDS: NUTRISOURCE FIBER 4 GM PACKET PEG SCH ×2 (08:24→21:50)
[2020-06-06] MEDS: TIZANIDINE HCL 4 MG TABLET PEG SCH ×2 (08:25→17:17)
[2020-06-06] MEDS: Z GUARD REMEDY PASTE 57 GM TUBE TOP SCH ×2 (08:26→21:50)
--- NOTE | 2020-06-06 11:33 | NUR ---
SEEN BY ALICIA COTTO N.P. AND WITH NNO.
[2020-06-06] MEDS: ACETAMINOPHEN 650 MG/20 ML UDC- SA PATIENTS-PAIN ONLY PEG SCH (17:17)
[2020-06-06 20:00] VITALS: BP 99/54
[2020-06-07] MEDS: MIDODRINE 10 MG PEG SCH ×3 (05:53→22:00)
[2020-06-07] MEDS: OMEPRAZOLE 20 MG CAPSULE.DR GT SCH (05:53)
[2020-06-07 07:21] VITALS: BP 112/63
[2020-06-07] MEDS: TIZANIDINE HCL 4 MG TABLET PEG SCH ×2 (08:08→17:33)
[2020-06-07] MEDS: PROTEIN SUPPLEMENT (PROSTAT) 30 ML LIQUID PEG SCH ×2 (08:08→20:49)
[2020-06-07] MEDS: DOCUSATE SODIUM 100 MG/10 ML LIQUID UDC GT SCH (08:08)
[2020-06-07] MEDS: Z GUARD REMEDY PASTE 57 GM TUBE TOP SCH ×2 (08:08→20:49)
[2020-06-07] MEDS: FERROUS SULFATE 330 MG/7.5 ML UDC- FOR SA ONLY GT SCH ×2 (08:08→20:48)
[2020-06-07] MEDS: NUTRISOURCE FIBER 4 GM PACKET PEG SCH ×2 (08:08→20:49)
[2020-06-07] MEDS: HYDROGEN PEROXIDE 3% 118 ML BOTTLE TP SCH ×2 (09:15→21:00)
--- NOTE | 2020-06-07 11:16 | NUR ---
NEW ORDER WAS CARRIED OUT FROM DR. LYNNE FOR COVID 19 TEST AND PT'S MOTHER WAS NOTIFIED WITH A CALL AND AN E MAIL AND IN AGREEMENT.
[2020-06-07] MEDS: ACETAMINOPHEN 650 MG/20 ML UDC- SA PATIENTS-PAIN ONLY PEG SCH (17:33)
[2020-06-07 20:30] VITALS: BP 116/66
[2020-06-07] MEDS: TWOCAL HN 1,000 ML LIQUID PEG PRN (20:55)
[2020-06-08 05:00] VITALS: BP 112/51
[2020-06-08] MEDS: MIDODRINE 10 MG PEG SCH ×3 (06:00→22:03)
[2020-06-08] MEDS: OMEPRAZOLE 20 MG CAPSULE.DR GT SCH (06:24)
[2020-06-08] MEDS: MULTIVIT, IRON, MIN NO. 8, FA TABLET GT SCH (06:25)
[2020-06-08 07:24] VITALS: BP 135/65
[2020-06-08] MEDS: NUTRISOURCE FIBER 4 GM PACKET PEG SCH ×2 (08:30→20:06)
[2020-06-08] MEDS: DOCUSATE SODIUM 100 MG/10 ML LIQUID UDC GT SCH (08:30)
[2020-06-08] MEDS: FERROUS SULFATE 330 MG/7.5 ML UDC- FOR SA ONLY GT SCH ×2 (08:30→20:04)
[2020-06-08] MEDS: TIZANIDINE HCL 4 MG TABLET PEG SCH ×2 (08:31→17:32)
[2020-06-08] MEDS: PROTEIN SUPPLEMENT (PROSTAT) 30 ML LIQUID PEG SCH ×2 (08:31→20:06)
[2020-06-08] MEDS: Z GUARD REMEDY PASTE 57 GM TUBE TOP SCH ×2 (09:00→20:07)
[2020-06-08] MEDS: HYDROGEN PEROXIDE 3% 118 ML BOTTLE TP SCH ×2 (09:13→20:20)
[2020-06-08] MEDS: ACETAMINOPHEN 650 MG/20 ML UDC- SA PATIENTS-PAIN ONLY PEG SCH (17:32)
[2020-06-08 20:39] VITALS: BP 97/61
--- NOTE | 2020-06-08 22:22 | NUR ---
Herberth from Lab called and relayed that COVID-19 test that was done yesterday on this patient was negative.
[2020-06-09] MEDS: MIDODRINE 10 MG PEG SCH ×3 (06:19→22:24)
[2020-06-09] MEDS: OMEPRAZOLE 20 MG CAPSULE.DR GT SCH (06:19)
[2020-06-09 07:44] VITALS: BP 100/55
[2020-06-09] MEDS: HYDROGEN PEROXIDE 3% 118 ML BOTTLE TP SCH ×2 (08:07→21:12)
[2020-06-09] MEDS: DOCUSATE SODIUM 100 MG/10 ML LIQUID UDC GT SCH (09:39)
[2020-06-09] MEDS: NUTRISOURCE FIBER 4 GM PACKET PEG SCH ×2 (09:40→20:17)
[2020-06-09] MEDS: FERROUS SULFATE 330 MG/7.5 ML UDC- FOR SA ONLY GT SCH ×2 (09:40→20:17)
[2020-06-09] MEDS: Z GUARD REMEDY PASTE 57 GM TUBE TOP SCH ×2 (09:40→20:17)
[2020-06-09] MEDS: PROTEIN SUPPLEMENT (PROSTAT) 30 ML LIQUID PEG SCH ×2 (09:40→20:17)
[2020-06-09] MEDS: TIZANIDINE HCL 4 MG TABLET PEG SCH ×2 (09:40→17:17)
[2020-06-09 14:09] VITALS: BP 101/50
--- NOTE | 2020-06-09 15:23 | NUR ---
COVID-19 TEST FROM 06/07/2020 RESULTED NEGATIVE. RESPONSIBLE CONSTITUTION PARTY, DEMETRICE NOTIFIED.
[2020-06-09] MEDS: ACETAMINOPHEN 650 MG/20 ML UDC- SA PATIENTS-PAIN ONLY PEG SCH (17:17)
[2020-06-09 20:12] VITALS: BP 101/66
[2020-06-10] MEDS: MULTIVIT, IRON, MIN NO. 8, FA TABLET GT SCH (06:13)
[2020-06-10] MEDS: OMEPRAZOLE 20 MG CAPSULE.DR GT SCH (06:13)
[2020-06-10] MEDS: MIDODRINE 10 MG PEG SCH ×3 (06:13→22:00)
[2020-06-10 07:50] VITALS: BP 99/55
[2020-06-10] MEDS: NUTRISOURCE FIBER 4 GM PACKET PEG SCH ×2 (08:55→20:10)
[2020-06-10] MEDS: FERROUS SULFATE 330 MG/7.5 ML UDC- FOR SA ONLY GT SCH ×2 (08:55→20:10)
[2020-06-10] MEDS: Z GUARD REMEDY PASTE 57 GM TUBE TOP SCH ×2 (08:55→20:10)
[2020-06-10] MEDS: DOCUSATE SODIUM 100 MG/10 ML LIQUID UDC GT SCH (08:55)
[2020-06-10] MEDS: PROTEIN SUPPLEMENT (PROSTAT) 30 ML LIQUID PEG SCH ×2 (08:55→20:10)
[2020-06-10] MEDS: TIZANIDINE HCL 4 MG TABLET PEG SCH ×2 (08:55→16:08)
[2020-06-10] MEDS: HYDROGEN PEROXIDE 3% 118 ML BOTTLE TP SCH ×2 (09:51→21:15)
[2020-06-10] MEDS: ACETAMINOPHEN 650 MG/20 ML UDC- SA PATIENTS-PAIN ONLY PEG SCH (16:08)
--- NOTE | 2020-06-10 17:00 | NUR ---
Provided video chat to pt. and her mother with no problem noted, pt. remains comfortable, all needs attended and anticipated.
[2020-06-10 20:22] VITALS: BP 130/69
[2020-06-11] MEDS: OMEPRAZOLE 20 MG CAPSULE.DR GT SCH (05:31)
[2020-06-11] MEDS: MIDODRINE 10 MG PEG SCH ×3 (05:31→21:29)
[2020-06-11 05:32] VITALS: BP 123/69
[2020-06-11 07:46] VITALS: BP 123/66
[2020-06-11] MEDS: DOCUSATE SODIUM 100 MG/10 ML LIQUID UDC GT SCH (08:56)
[2020-06-11] MEDS: Z GUARD REMEDY PASTE 57 GM TUBE TOP SCH ×2 (08:56→20:50)
[2020-06-11] MEDS: TIZANIDINE HCL 4 MG TABLET PEG SCH ×2 (08:56→16:34)
[2020-06-11] MEDS: FERROUS SULFATE 330 MG/7.5 ML UDC- FOR SA ONLY GT SCH ×2 (08:56→20:50)
[2020-06-11] MEDS: PROTEIN SUPPLEMENT (PROSTAT) 30 ML LIQUID PEG SCH ×2 (08:56→20:50)
[2020-06-11] MEDS: NUTRISOURCE FIBER 4 GM PACKET PEG SCH ×2 (08:56→20:50)
[2020-06-11 09:02] VITALS: BP 122/63
[2020-06-11] MEDS: HYDROGEN PEROXIDE 3% 118 ML BOTTLE TP SCH ×2 (09:38→21:31)
--- NOTE | 2020-06-11 15:30 | NUR ---
Assisted with video chat with pt's, mother.
[2020-06-11] MEDS: ACETAMINOPHEN 650 MG/20 ML UDC- SA PATIENTS-PAIN ONLY PEG SCH (16:34)
[2020-06-11] MEDS: TWOCAL HN 1,000 ML LIQUID PEG PRN (18:37)
[2020-06-11 20:27] VITALS: BP 119/75
[2020-06-12] MEDS: MIDODRINE 10 MG PEG SCH ×3 (06:00→21:38)
[2020-06-12 06:37] VITALS: BP 111/70
[2020-06-12] MEDS: MULTIVIT, IRON, MIN NO. 8, FA TABLET GT SCH (06:38)
[2020-06-12] MEDS: OMEPRAZOLE 20 MG CAPSULE.DR GT SCH (06:38)
[2020-06-12] MEDS: HYDROGEN PEROXIDE 3% 118 ML BOTTLE TP SCH ×2 (07:50→21:02)
[2020-06-12 08:02] VITALS: BP 115/70
[2020-06-12] MEDS: PROTEIN SUPPLEMENT (PROSTAT) 30 ML LIQUID PEG SCH ×2 (09:23→20:54)
[2020-06-12] MEDS: TIZANIDINE HCL 4 MG TABLET PEG SCH ×2 (09:23→17:00)
[2020-06-12] MEDS: NUTRISOURCE FIBER 4 GM PACKET PEG SCH ×2 (09:23→20:53)
[2020-06-12] MEDS: Z GUARD REMEDY PASTE 57 GM TUBE TOP SCH ×2 (09:23→20:54)
[2020-06-12] MEDS: DOCUSATE SODIUM 100 MG/10 ML LIQUID UDC GT SCH (09:23)
[2020-06-12] MEDS: FERROUS SULFATE 330 MG/7.5 ML UDC- FOR SA ONLY GT SCH ×2 (09:23→20:53)
[2020-06-12] MEDS: ACETAMINOPHEN 650 MG/20 ML UDC- SA PATIENTS-PAIN ONLY PEG SCH (17:00)
[2020-06-12 20:22] VITALS: BP 108/68
[2020-06-13] MEDS: MIDODRINE 10 MG PEG SCH ×3 (05:58→21:01)
[2020-06-13] MEDS: OMEPRAZOLE 20 MG CAPSULE.DR GT SCH (05:58)
[2020-06-13 07:49] VITALS: BP 114/65
[2020-06-13] MEDS: TIZANIDINE HCL 4 MG TABLET PEG SCH ×2 (08:57→17:33)
[2020-06-13] MEDS: FERROUS SULFATE 330 MG/7.5 ML UDC- FOR SA ONLY GT SCH ×2 (08:57→21:01)
[2020-06-13] MEDS: DOCUSATE SODIUM 100 MG/10 ML LIQUID UDC GT SCH (08:57)
[2020-06-13] MEDS: PROTEIN SUPPLEMENT (PROSTAT) 30 ML LIQUID PEG SCH ×2 (08:57→21:01)
[2020-06-13] MEDS: NUTRISOURCE FIBER 4 GM PACKET PEG SCH ×2 (08:57→21:01)
[2020-06-13] MEDS: Z GUARD REMEDY PASTE 57 GM TUBE TOP SCH ×2 (08:58→21:01)
[2020-06-13] MEDS: HYDROGEN PEROXIDE 3% 118 ML BOTTLE TP SCH ×2 (09:00→20:57)
[2020-06-13] MEDS: ACETAMINOPHEN 650 MG/20 ML UDC- SA PATIENTS-PAIN ONLY PEG SCH (17:34)
--- NOTE | 2020-06-13 18:40 | NUR ---
video call provided with pt. and family (mother). No complaint at this time.
[2020-06-13 20:24] VITALS: BP 115/64
[2020-06-14] MEDS: TWOCAL HN 1,000 ML LIQUID PEG PRN (01:22)
[2020-06-14] MEDS: OMEPRAZOLE 20 MG CAPSULE.DR GT SCH (06:01)
[2020-06-14] MEDS: MULTIVIT, IRON, MIN NO. 8, FA TABLET GT SCH (06:01)
[2020-06-14] MEDS: MIDODRINE 10 MG PEG SCH ×3 (06:01→21:54)
[2020-06-14] MEDS: TIZANIDINE HCL 4 MG TABLET PEG SCH ×2 (08:06→17:32)
[2020-06-14] MEDS: NUTRISOURCE FIBER 4 GM PACKET PEG SCH ×2 (08:06→21:53)
[2020-06-14] MEDS: Z GUARD REMEDY PASTE 57 GM TUBE TOP SCH ×2 (08:06→21:54)
[2020-06-14] MEDS: DOCUSATE SODIUM 100 MG/10 ML LIQUID UDC GT SCH (08:06)
[2020-06-14] MEDS: FERROUS SULFATE 330 MG/7.5 ML UDC- FOR SA ONLY GT SCH ×2 (08:06→21:50)
[2020-06-14] MEDS: PROTEIN SUPPLEMENT (PROSTAT) 30 ML LIQUID PEG SCH ×2 (08:06→21:53)
[2020-06-14] MEDS: HYDROGEN PEROXIDE 3% 118 ML BOTTLE TP SCH ×2 (08:10→19:52)
[2020-06-14 08:22] VITALS: BP 114/68
[2020-06-14 14:09] VITALS: BP 111/62
[2020-06-14] MEDS: ACETAMINOPHEN 650 MG/20 ML UDC- SA PATIENTS-PAIN ONLY PEG SCH (17:32)
--- NOTE | 2020-06-14 18:38 | NUR ---
Video call provided with pt. and family (mother). No complaint at this time.
[2020-06-14 20:03] VITALS: BP 100/58
[2020-06-15 06:00] VITALS: BP 106/67
[2020-06-15] MEDS: OMEPRAZOLE 20 MG CAPSULE.DR GT SCH (06:19)
[2020-06-15] MEDS: MIDODRINE 10 MG PEG SCH ×3 (06:19→22:26)
[2020-06-15 07:23] VITALS: BP 100/54
[2020-06-15] MEDS: HYDROGEN PEROXIDE 3% 118 ML BOTTLE TP SCH ×2 (07:56→21:10)
[2020-06-15] MEDS: Z GUARD REMEDY PASTE 57 GM TUBE TOP SCH ×2 (07:57→20:13)
[2020-06-15] MEDS: NUTRISOURCE FIBER 4 GM PACKET PEG SCH ×2 (07:58→20:13)
[2020-06-15] MEDS: FERROUS SULFATE 330 MG/7.5 ML UDC- FOR SA ONLY GT SCH ×2 (07:58→20:13)
[2020-06-15] MEDS: PROTEIN SUPPLEMENT (PROSTAT) 30 ML LIQUID PEG SCH ×2 (07:58→20:13)
[2020-06-15] MEDS: DOCUSATE SODIUM 100 MG/10 ML LIQUID UDC GT SCH (08:00)
[2020-06-15] MEDS: TIZANIDINE HCL 4 MG TABLET PEG SCH ×2 (08:01→16:19)
[2020-06-15] MEDS: ACETAMINOPHEN 650 MG/20 ML UDC- SA PATIENTS-PAIN ONLY PEG SCH (16:19)
[2020-06-15 19:58] VITALS: BP 102/66
[2020-06-16] MEDS: TWOCAL HN 1,000 ML LIQUID PEG PRN (03:08)
[2020-06-16] MEDS: OMEPRAZOLE 20 MG CAPSULE.DR GT SCH (06:06)
[2020-06-16] MEDS: MULTIVIT, IRON, MIN NO. 8, FA TABLET GT SCH (06:06)
[2020-06-16] MEDS: MIDODRINE 10 MG PEG SCH ×3 (06:06→22:36)
[2020-06-16 06:07] VITALS: BP 98/68
[2020-06-16 07:29] VITALS: BP 114/58
[2020-06-16] MEDS: NUTRISOURCE FIBER 4 GM PACKET PEG SCH ×2 (08:03→20:20)
[2020-06-16] MEDS: PROTEIN SUPPLEMENT (PROSTAT) 30 ML LIQUID PEG SCH ×2 (08:03→20:20)
[2020-06-16] MEDS: DOCUSATE SODIUM 100 MG/10 ML LIQUID UDC GT SCH (08:03)
[2020-06-16] MEDS: FERROUS SULFATE 330 MG/7.5 ML UDC- FOR SA ONLY GT SCH ×2 (08:03→20:20)
[2020-06-16] MEDS: Z GUARD REMEDY PASTE 57 GM TUBE TOP SCH ×2 (08:04→20:20)
[2020-06-16] MEDS: TIZANIDINE HCL 4 MG TABLET PEG SCH ×2 (08:05→16:39)
[2020-06-16] MEDS: HYDROGEN PEROXIDE 3% 118 ML BOTTLE TP SCH ×2 (09:38→21:54)
[2020-06-16 13:12] VITALS: BP 113/75
[2020-06-16] MEDS: ACETAMINOPHEN 650 MG/20 ML UDC- SA PATIENTS-PAIN ONLY PEG SCH (16:40)
[2020-06-16 19:57] VITALS: BP 91/63
[2020-06-16 22:37] VITALS: BP 93/65
[2020-06-17] MEDS: OMEPRAZOLE 20 MG CAPSULE.DR GT SCH (05:51)
[2020-06-17] MEDS: MIDODRINE 10 MG PEG SCH ×3 (05:51→22:00)
[2020-06-17 05:52] VITALS: BP 96/59
[2020-06-17 07:56] VITALS: BP 110/65
[2020-06-17] MEDS: TIZANIDINE HCL 4 MG TABLET PEG SCH ×2 (08:09→17:28)
[2020-06-17] MEDS: Z GUARD REMEDY PASTE 57 GM TUBE TOP SCH ×2 (08:09→20:12)
[2020-06-17] MEDS: DOCUSATE SODIUM 100 MG/10 ML LIQUID UDC GT SCH (08:09)
[2020-06-17] MEDS: NUTRISOURCE FIBER 4 GM PACKET PEG SCH ×2 (08:09→20:12)
[2020-06-17] MEDS: FERROUS SULFATE 330 MG/7.5 ML UDC- FOR SA ONLY GT SCH ×2 (08:09→20:12)
[2020-06-17] MEDS: PROTEIN SUPPLEMENT (PROSTAT) 30 ML LIQUID PEG SCH ×2 (08:09→20:12)
[2020-06-17] MEDS: HYDROGEN PEROXIDE 3% 118 ML BOTTLE TP SCH ×2 (09:00→21:48)
--- NOTE | 2020-06-17 17:10 | NUR ---
COVID-19 TEST FROM 06/14/2020 RESULTED NEGATIVE. RESPONSIBLE LIBERTARIAN, DEMETRICE NOTIFIED.
[2020-06-17] MEDS: ACETAMINOPHEN 650 MG/20 ML UDC- SA PATIENTS-PAIN ONLY PEG SCH (17:28)
[2020-06-17 20:00] VITALS: BP 111/71
[2020-06-18] MEDS: OMEPRAZOLE 20 MG CAPSULE.DR GT SCH (06:00)
[2020-06-18] MEDS: MIDODRINE 10 MG PEG SCH ×3 (06:00→21:57)
[2020-06-18] MEDS: MULTIVIT, IRON, MIN NO. 8, FA TABLET GT SCH (06:00)
[2020-06-18 06:05] VITALS: BP 115/57
[2020-06-18 08:03] VITALS: BP 121/74
[2020-06-18] MEDS: DOCUSATE SODIUM 100 MG/10 ML LIQUID UDC GT SCH (09:08)
[2020-06-18] MEDS: NUTRISOURCE FIBER 4 GM PACKET PEG SCH ×2 (09:09→21:56)
[2020-06-18] MEDS: Z GUARD REMEDY PASTE 57 GM TUBE TOP SCH ×2 (09:09→21:57)
[2020-06-18] MEDS: TIZANIDINE HCL 4 MG TABLET PEG SCH ×2 (09:09→17:10)
[2020-06-18] MEDS: PROTEIN SUPPLEMENT (PROSTAT) 30 ML LIQUID PEG SCH ×2 (09:09→21:57)
[2020-06-18] MEDS: FERROUS SULFATE 330 MG/7.5 ML UDC- FOR SA ONLY GT SCH ×2 (09:09→21:56)
[2020-06-18] MEDS: HYDROGEN PEROXIDE 3% 118 ML BOTTLE TP SCH ×2 (09:16→21:19)
--- NOTE | 2020-06-18 11:00 | NUR ---
PT. WAS SEEN AND EXAMINED BY ALICIA COTTO N.P. AND WITH NNO.
[2020-06-18 13:41] VITALS: BP 100/56
--- NOTE | 2020-06-18 16:00 | NUR ---
Video chat done with pt's,mother.
[2020-06-18] MEDS: ACETAMINOPHEN 650 MG/20 ML UDC- SA PATIENTS-PAIN ONLY PEG SCH (17:10)
[2020-06-18 20:00] VITALS: BP 104/53
[2020-06-18] MEDS: NEOMY/BACITRA/POLYMYXIN B OINT UD PACKET TP SCH (21:57)
[2020-06-19 05:00] VITALS: BP 102/52
[2020-06-19] MEDS: OMEPRAZOLE 20 MG CAPSULE.DR GT SCH (06:12)
[2020-06-19] MEDS: MIDODRINE 10 MG PEG SCH ×3 (06:12→22:03)
[2020-06-19 07:44] VITALS: BP 106/69
[2020-06-19] MEDS: HYDROGEN PEROXIDE 3% 118 ML BOTTLE TP SCH ×2 (09:57→21:57)
[2020-06-19] MEDS: NEOMY/BACITRA/POLYMYXIN B OINT UD PACKET TP SCH ×2 (10:00→20:28)
[2020-06-19] MEDS: TIZANIDINE HCL 4 MG TABLET PEG SCH ×2 (10:00→17:10)
[2020-06-19] MEDS: FERROUS SULFATE 330 MG/7.5 ML UDC- FOR SA ONLY GT SCH ×2 (10:00→20:27)
[2020-06-19] MEDS: NUTRISOURCE FIBER 4 GM PACKET PEG SCH ×2 (10:00→20:28)
[2020-06-19] MEDS: Z GUARD REMEDY PASTE 57 GM TUBE TOP SCH ×2 (10:00→20:28)
[2020-06-19] MEDS: DOCUSATE SODIUM 100 MG/10 ML LIQUID UDC GT SCH (10:00)
[2020-06-19] MEDS: PROTEIN SUPPLEMENT (PROSTAT) 30 ML LIQUID PEG SCH ×2 (10:00→20:28)
[2020-06-19] MEDS: ACETAMINOPHEN 650 MG/20 ML UDC- SA PATIENTS-PAIN ONLY PEG SCH (17:10)
[2020-06-19 20:00] VITALS: BP 108/56
[2020-06-20] MEDS: OMEPRAZOLE 20 MG CAPSULE.DR GT SCH (05:50)
[2020-06-20] MEDS: MIDODRINE 10 MG PEG SCH ×3 (05:50→22:39)
[2020-06-20] MEDS: MULTIVIT, IRON, MIN NO. 8, FA TABLET GT SCH (05:50)
[2020-06-20] MEDS: TWOCAL HN 1,000 ML LIQUID PEG PRN (05:50)
[2020-06-20 07:54] VITALS: BP 105/60
[2020-06-20] MEDS: HYDROGEN PEROXIDE 3% 118 ML BOTTLE TP SCH ×2 (09:00→21:00)
[2020-06-20] MEDS: DOCUSATE SODIUM 100 MG/10 ML LIQUID UDC GT SCH (09:05)
[2020-06-20] MEDS: NUTRISOURCE FIBER 4 GM PACKET PEG SCH ×2 (09:07→20:28)
[2020-06-20] MEDS: FERROUS SULFATE 330 MG/7.5 ML UDC- FOR SA ONLY GT SCH ×2 (09:07→20:28)
[2020-06-20] MEDS: PROTEIN SUPPLEMENT (PROSTAT) 30 ML LIQUID PEG SCH ×2 (09:07→20:28)
[2020-06-20] MEDS: TIZANIDINE HCL 4 MG TABLET PEG SCH ×2 (09:08→16:16)
[2020-06-20] MEDS: Z GUARD REMEDY PASTE 57 GM TUBE TOP SCH ×2 (09:08→20:28)
[2020-06-20] MEDS: NEOMY/BACITRA/POLYMYXIN B OINT UD PACKET TP SCH ×2 (09:08→20:28)
[2020-06-20 14:00] VITALS: BP 104/61
--- NOTE | 2020-06-20 16:05 | NUR ---
PT'S MOTHER WAS NOTIFIED RE:COVID 19 TEST TOMORROW PER [facility] REQUIREMENT AND IN AGREEMENT.
[2020-06-20] MEDS: ACETAMINOPHEN 650 MG/20 ML UDC- SA PATIENTS-PAIN ONLY PEG SCH (16:16)
[2020-06-20 20:16] VITALS: BP 102/61
[2020-06-21] MEDS: MIDODRINE 10 MG PEG SCH ×3 (05:39→22:00)
[2020-06-21] MEDS: OMEPRAZOLE 20 MG CAPSULE.DR GT SCH (05:39)
[2020-06-21 07:17] VITALS: BP 105/64
[2020-06-21] MEDS: DOCUSATE SODIUM 100 MG/10 ML LIQUID UDC GT SCH (08:25)
[2020-06-21] MEDS: PROTEIN SUPPLEMENT (PROSTAT) 30 ML LIQUID PEG SCH ×2 (08:26→20:18)
[2020-06-21] MEDS: FERROUS SULFATE 330 MG/7.5 ML UDC- FOR SA ONLY GT SCH ×2 (08:26→20:17)
[2020-06-21] MEDS: NUTRISOURCE FIBER 4 GM PACKET PEG SCH ×2 (08:26→20:17)
[2020-06-21] MEDS: Z GUARD REMEDY PASTE 57 GM TUBE TOP SCH ×2 (08:27→20:18)
[2020-06-21] MEDS: TIZANIDINE HCL 4 MG TABLET PEG SCH ×2 (08:27→17:21)
[2020-06-21] MEDS: NEOMY/BACITRA/POLYMYXIN B OINT UD PACKET TP SCH ×2 (08:28→20:18)
[2020-06-21] MEDS: HYDROGEN PEROXIDE 3% 118 ML BOTTLE TP SCH ×2 (09:49→21:00)
[2020-06-21 13:36] VITALS: BP 100/59
--- NOTE | 2020-06-21 14:26 | NUR ---
COVID 19 TEST DONE .
[2020-06-21] MEDS: ACETAMINOPHEN 650 MG/20 ML UDC- SA PATIENTS-PAIN ONLY PEG SCH (17:20)
--- NOTE | 2020-06-21 17:38 | NUR ---
SEEN BY ALICIA COTTO N.P. AND DIONISIOO.
[2020-06-21 20:14] VITALS: BP 117/70
[2020-06-22] MEDS: MIDODRINE 10 MG PEG SCH ×3 (05:22→22:00)
[2020-06-22] MEDS: OMEPRAZOLE 20 MG CAPSULE.DR GT SCH (05:22)
[2020-06-22] MEDS: MULTIVIT, IRON, MIN NO. 8, FA TABLET GT SCH (05:32)
[2020-06-22 07:16] VITALS: BP 113/67
[2020-06-22] MEDS: DOCUSATE SODIUM 100 MG/10 ML LIQUID UDC GT SCH (08:30)
[2020-06-22] MEDS: FERROUS SULFATE 330 MG/7.5 ML UDC- FOR SA ONLY GT SCH ×2 (08:30→21:00)
[2020-06-22] MEDS: NUTRISOURCE FIBER 4 GM PACKET PEG SCH ×2 (08:31→21:00)
[2020-06-22] MEDS: PROTEIN SUPPLEMENT (PROSTAT) 30 ML LIQUID PEG SCH ×2 (08:33→21:00)
[2020-06-22] MEDS: TIZANIDINE HCL 4 MG TABLET PEG SCH ×2 (08:34→17:38)
[2020-06-22] MEDS: Z GUARD REMEDY PASTE 57 GM TUBE TOP SCH ×2 (08:34→21:00)
[2020-06-22] MEDS: NEOMY/BACITRA/POLYMYXIN B OINT UD PACKET TP SCH ×2 (08:34→21:00)
[2020-06-22] MEDS: HYDROGEN PEROXIDE 3% 118 ML BOTTLE TP SCH ×2 (09:40→20:13)
[2020-06-22] MEDS: ACETAMINOPHEN 650 MG/20 ML UDC- SA PATIENTS-PAIN ONLY PEG SCH (17:38)
[2020-06-22 20:00] VITALS: BP_SYST 111; BP_SYST 113; BP_DIAS 68; BP_DIAS 71
--- NOTE | 2020-06-22 22:14 | NUR ---
Midodrine 10 mg gt held bp111/71
[2020-06-23] MEDS: MIDODRINE 10 MG PEG SCH ×3 (06:00→21:31)
[2020-06-23] MEDS: OMEPRAZOLE 20 MG CAPSULE.DR GT SCH (06:00)
[2020-06-23 07:46] VITALS: BP 107/69
[2020-06-23] MEDS: DOCUSATE SODIUM 100 MG/10 ML LIQUID UDC GT SCH (08:44)
[2020-06-23] MEDS: FERROUS SULFATE 330 MG/7.5 ML UDC- FOR SA ONLY GT SCH ×2 (08:45→21:30)
[2020-06-23] MEDS: PROTEIN SUPPLEMENT (PROSTAT) 30 ML LIQUID PEG SCH ×2 (08:46→21:30)
[2020-06-23] MEDS: Z GUARD REMEDY PASTE 57 GM TUBE TOP SCH ×2 (08:46→21:30)
[2020-06-23] MEDS: TIZANIDINE HCL 4 MG TABLET PEG SCH ×2 (08:46→16:45)
[2020-06-23] MEDS: NUTRISOURCE FIBER 4 GM PACKET PEG SCH ×2 (08:46→21:30)
[2020-06-23] MEDS: NEOMY/BACITRA/POLYMYXIN B OINT UD PACKET TP SCH ×2 (09:00→21:30)
[2020-06-23] MEDS: HYDROGEN PEROXIDE 3% 118 ML BOTTLE TP SCH ×2 (09:39→21:22)
[2020-06-23] MEDS: ACETAMINOPHEN 650 MG/20 ML UDC- SA PATIENTS-PAIN ONLY PEG SCH (16:45)
[2020-06-23 20:00] VITALS: BP 102/65
[2020-06-24] MEDS: TWOCAL HN 1,000 ML LIQUID PEG PRN (05:02)
[2020-06-24] MEDS: OMEPRAZOLE 20 MG CAPSULE.DR GT SCH (05:06)
[2020-06-24] MEDS: MIDODRINE 10 MG PEG SCH ×3 (05:06→21:33)
[2020-06-24] MEDS: MULTIVIT, IRON, MIN NO. 8, FA TABLET GT SCH (05:52)
[2020-06-24 07:35] VITALS: BP 94/62
[2020-06-24] MEDS: DOCUSATE SODIUM 100 MG/10 ML LIQUID UDC GT SCH (08:00)
[2020-06-24] MEDS: FERROUS SULFATE 330 MG/7.5 ML UDC- FOR SA ONLY GT SCH ×2 (08:01→21:31)
[2020-06-24] MEDS: TIZANIDINE HCL 4 MG TABLET PEG SCH ×2 (08:01→17:25)
[2020-06-24] MEDS: NUTRISOURCE FIBER 4 GM PACKET PEG SCH ×2 (08:01→21:32)
[2020-06-24] MEDS: PROTEIN SUPPLEMENT (PROSTAT) 30 ML LIQUID PEG SCH ×2 (08:01→21:32)
[2020-06-24] MEDS: Z GUARD REMEDY PASTE 57 GM TUBE TOP SCH ×2 (08:02→21:33)
[2020-06-24] MEDS: HYDROGEN PEROXIDE 3% 118 ML BOTTLE TP SCH ×2 (09:00→21:20)
[2020-06-24] MEDS: NEOMY/BACITRA/POLYMYXIN B OINT UD PACKET TP SCH ×2 (09:00→21:33)
[2020-06-24] MEDS: ACETAMINOPHEN 650 MG/20 ML UDC- SA PATIENTS-PAIN ONLY PEG SCH (17:25)
[2020-06-24 20:00] VITALS: BP 105/63
--- NOTE | 2020-06-24 20:16 | NUR ---
COVID-19 TEST FROM 06/21/2020 RESULTED NEGATIVE. RESPONSIBLE CONSTITUTION PARTY, DEMETRICE NOTIFIED.
[2020-06-25] MEDS: OMEPRAZOLE 20 MG CAPSULE.DR GT SCH (05:24)
[2020-06-25] MEDS: MIDODRINE 10 MG PEG SCH ×3 (05:25→21:22)
[2020-06-25 07:43] VITALS: BP 98/60
[2020-06-25] MEDS: DOCUSATE SODIUM 100 MG/10 ML LIQUID UDC GT SCH (08:26)
[2020-06-25] MEDS: NUTRISOURCE FIBER 4 GM PACKET PEG SCH ×2 (08:26→20:08)
[2020-06-25] MEDS: PROTEIN SUPPLEMENT (PROSTAT) 30 ML LIQUID PEG SCH ×2 (08:26→20:08)
[2020-06-25] MEDS: FERROUS SULFATE 330 MG/7.5 ML UDC- FOR SA ONLY GT SCH ×2 (08:26→20:08)
[2020-06-25] MEDS: NEOMY/BACITRA/POLYMYXIN B OINT UD PACKET TP SCH ×2 (08:27→20:08)
[2020-06-25] MEDS: TIZANIDINE HCL 4 MG TABLET PEG SCH ×2 (08:27→17:16)
[2020-06-25] MEDS: Z GUARD REMEDY PASTE 57 GM TUBE TOP SCH ×2 (08:27→20:08)
[2020-06-25] MEDS: HYDROGEN PEROXIDE 3% 118 ML BOTTLE TP SCH ×2 (09:00→21:45)
[2020-06-25] MEDS: ACETAMINOPHEN 650 MG/20 ML UDC- SA PATIENTS-PAIN ONLY PEG SCH (17:16)
[2020-06-25 20:37] VITALS: BP 107/65
[2020-06-26] MEDS: TWOCAL HN 1,000 ML LIQUID PEG PRN (04:15)
[2020-06-26] MEDS: OMEPRAZOLE 20 MG CAPSULE.DR GT SCH (05:44)
[2020-06-26] MEDS: MULTIVIT, IRON, MIN NO. 8, FA TABLET GT SCH (05:44)
[2020-06-26] MEDS: MIDODRINE 10 MG PEG SCH ×3 (05:45→21:34)
[2020-06-26] MEDS: HYDROGEN PEROXIDE 3% 118 ML BOTTLE TP SCH ×2 (07:44→21:31)
[2020-06-26 08:03] VITALS: BP 101/58
[2020-06-26] MEDS: PROTEIN SUPPLEMENT (PROSTAT) 30 ML LIQUID PEG SCH ×2 (08:17→20:12)
[2020-06-26] MEDS: Z GUARD REMEDY PASTE 57 GM TUBE TOP SCH ×2 (08:17→20:12)
[2020-06-26] MEDS: FERROUS SULFATE 330 MG/7.5 ML UDC- FOR SA ONLY GT SCH ×2 (08:17→20:12)
[2020-06-26] MEDS: NUTRISOURCE FIBER 4 GM PACKET PEG SCH ×2 (08:17→20:12)
[2020-06-26] MEDS: DOCUSATE SODIUM 100 MG/10 ML LIQUID UDC GT SCH (08:17)
[2020-06-26] MEDS: TIZANIDINE HCL 4 MG TABLET PEG SCH ×2 (08:17→16:37)
[2020-06-26] MEDS: NEOMY/BACITRA/POLYMYXIN B OINT UD PACKET TP SCH ×2 (08:18→20:12)
[2020-06-26 13:14] VITALS: BP 103/62
[2020-06-26] MEDS: ACETAMINOPHEN 650 MG/20 ML UDC- SA PATIENTS-PAIN ONLY PEG SCH (16:38)
[2020-06-26 20:00] VITALS: BP 109/64
[2020-06-27] MEDS: MIDODRINE 10 MG PEG SCH ×3 (05:52→21:35)
[2020-06-27] MEDS: OMEPRAZOLE 20 MG CAPSULE.DR GT SCH (05:52)
[2020-06-27 07:52] VITALS: BP 98/68
[2020-06-27] MEDS: NUTRISOURCE FIBER 4 GM PACKET PEG SCH ×2 (08:17→20:06)
[2020-06-27] MEDS: FERROUS SULFATE 330 MG/7.5 ML UDC- FOR SA ONLY GT SCH ×2 (08:17→20:06)
[2020-06-27] MEDS: DOCUSATE SODIUM 100 MG/10 ML LIQUID UDC GT SCH (08:17)
[2020-06-27] MEDS: PROTEIN SUPPLEMENT (PROSTAT) 30 ML LIQUID PEG SCH ×2 (08:18→20:06)
[2020-06-27] MEDS: TIZANIDINE HCL 4 MG TABLET PEG SCH ×2 (08:18→17:26)
[2020-06-27] MEDS: Z GUARD REMEDY PASTE 57 GM TUBE TOP SCH ×2 (08:19→20:06)
[2020-06-27] MEDS: NEOMY/BACITRA/POLYMYXIN B OINT UD PACKET TP SCH ×2 (08:47→20:06)
[2020-06-27] MEDS: HYDROGEN PEROXIDE 3% 118 ML BOTTLE TP SCH ×2 (09:00→20:48)
[2020-06-27 14:00] VITALS: BP 105/63
[2020-06-27] MEDS: ACETAMINOPHEN 650 MG/20 ML UDC- SA PATIENTS-PAIN ONLY PEG SCH (17:26)
[2020-06-27 20:00] VITALS: BP 94/59
[2020-06-28] MEDS: TWOCAL HN 1,000 ML LIQUID PEG PRN (05:16)
[2020-06-28] MEDS: OMEPRAZOLE 20 MG CAPSULE.DR GT SCH (05:16)
[2020-06-28] MEDS: MIDODRINE 10 MG PEG SCH ×3 (05:16→21:52)
[2020-06-28] MEDS: MULTIVIT, IRON, MIN NO. 8, FA TABLET GT SCH (05:42)
[2020-06-28 07:16] VITALS: BP 107/56
[2020-06-28] MEDS: DOCUSATE SODIUM 100 MG/10 ML LIQUID UDC GT SCH (08:40)
[2020-06-28] MEDS: PROTEIN SUPPLEMENT (PROSTAT) 30 ML LIQUID PEG SCH ×2 (08:41→21:52)
[2020-06-28] MEDS: FERROUS SULFATE 330 MG/7.5 ML UDC- FOR SA ONLY GT SCH ×2 (08:41→21:50)
[2020-06-28] MEDS: NUTRISOURCE FIBER 4 GM PACKET PEG SCH ×2 (08:41→21:50)
[2020-06-28] MEDS: Z GUARD REMEDY PASTE 57 GM TUBE TOP SCH ×2 (08:42→21:52)
[2020-06-28] MEDS: TIZANIDINE HCL 4 MG TABLET PEG SCH ×2 (08:42→17:05)
[2020-06-28] MEDS: NEOMY/BACITRA/POLYMYXIN B OINT UD PACKET TP SCH ×2 (08:43→21:52)
[2020-06-28] MEDS: HYDROGEN PEROXIDE 3% 118 ML BOTTLE TP SCH ×2 (08:56→21:35)
[2020-06-28] MEDS: ACETAMINOPHEN 650 MG/20 ML UDC- SA PATIENTS-PAIN ONLY PEG SCH (17:05)
[2020-06-28 20:12] VITALS: BP 107/61
[2020-06-29] MEDS: MIDODRINE 10 MG PEG SCH ×3 (06:00→21:40)
[2020-06-29] MEDS: OMEPRAZOLE 20 MG CAPSULE.DR GT SCH (06:09)
[2020-06-29 07:15] VITALS: BP 118/71
[2020-06-29] MEDS: DOCUSATE SODIUM 100 MG/10 ML LIQUID UDC GT SCH (08:23)
[2020-06-29] MEDS: FERROUS SULFATE 330 MG/7.5 ML UDC- FOR SA ONLY GT SCH ×2 (08:23→21:40)
[2020-06-29] MEDS: NUTRISOURCE FIBER 4 GM PACKET PEG SCH ×2 (08:23→21:40)
[2020-06-29] MEDS: PROTEIN SUPPLEMENT (PROSTAT) 30 ML LIQUID PEG SCH ×2 (08:24→21:40)
[2020-06-29] MEDS: TIZANIDINE HCL 4 MG TABLET PEG SCH ×2 (08:25→16:08)
[2020-06-29] MEDS: NEOMY/BACITRA/POLYMYXIN B OINT UD PACKET TP SCH ×2 (08:25→21:40)
[2020-06-29] MEDS: Z GUARD REMEDY PASTE 57 GM TUBE TOP SCH ×2 (08:25→21:40)
[2020-06-29] MEDS: HYDROGEN PEROXIDE 3% 118 ML BOTTLE TP SCH ×2 (09:37→21:19)
[2020-06-29] MEDS: ACETAMINOPHEN 650 MG/20 ML UDC- SA PATIENTS-PAIN ONLY PEG SCH (16:08)
[2020-06-29] MEDS: BISACODYL 10 MG SUPP.RECT RC PRN (16:09)
--- NOTE | 2020-06-29 17:16 | NUR ---
Seen and examined by Dr Wu,aware pt has abdominal distention and spike temp to 100.8 ,with new orders noted and carried out.
--- NOTE | 2020-06-29 17:30 | NUR ---
Pt's mother Morena notified regarding the new orders and pt change of condition.
[2020-06-29 17:43] LABS: BASOPHILS % (AUTO) 0.1 % (0.0-2.0); HEMATOCRIT 40.1 % (31.2-41.9); HEMOGLOBIN 13.5 g/dL (10.9-14.3); LYMPHOCYTES # (AUTO) 0.6 K/uL (20.0-40.0); LYMPHOCYTES % (AUTO) 3.5 % (20.5-51.5); MEAN CORPUSCULAR HEMOGLOBIN 31.7 uug (24.7-32.8); MEAN CORPUSCULAR HGB CONC 34 g/dL (32.3-35.6); MEAN CORPUSCULAR VOLUME 94.3 fL (75.5-95.3); MONOCYTES # (AUTO) 0.6 K/uL (2.0-10.0); MONOCYTES % (AUTO) 3.5 % (0.0-11.0); NEUTROPHILS # (AUTO) 16.7 K/uL (1.8-8.9); NEUTROPHILS % (AUTO) 92.9 % (38.5-71.5); PLATELET COUNT (AUTO) 209 K/uL (179-408); RED BLOOD CELL COUNT(AUTO) 4.25 MIL/uL (3.63-4.92)
[2020-06-29 17:46] LABS: CREATININE 0.8 mg/dL (0.6-1.3); POTASSIUM 3.9 mmol/L (3.5-5.1)
[2020-06-29 17:52] LABS: BILIRUBIN,TOTAL 1.5 mg/dL (0.2-1.0); TOTAL PROTEIN, SERUM 7.8 g/dL (6.4-8.2)
[2020-06-29 18:06] LABS: *BILIRUBIN,URIN NEGATIVE (NEGATIVE); *BLOOD, URINE 2+ (NEGATIVE); *COLOR,URINE YELLOW (YELLOW); *KETONES,URINE NEGATIVE (NEGATIVE); LEUKOCYTE ESTERASE ,URINE 3+ (NEGATIVE); NITRITE, URINE NEGATIVE (NEGATIVE); UGLUCOSE NEGATIVE (NEGATIVE)
[2020-06-29 18:20] LABS: *CLARITY,URINE CLOUDY (CLEAR)
[2020-06-29 18:21] LABS: BACTERIA,URINE MANY /HPF (NONE SEEN); SQUAMOUS EPITHELIAL CELL,UR MODERATE /HPF (NONE SEEN); WBC,URINE 50-80 /HPF (0-3)
--- NOTE | 2020-06-29 18:47 | NUR ---
Left message to Dr Wu regarding the Stat labs results.
--- NOTE | 2020-06-29 18:57 | NUR ---
Dr Wu call back with new orders noted and carried out,Pt's mother Morena ,notified regarding the new orders,and agreed with the plan of care.
[2020-06-29 20:12] VITALS: BP 86/49
--- NOTE | 2020-06-29 21:20 | NUR ---
hai rios pharmacist stated pt can not have merrem due to allergic to penicillin and call dr sierra and change to levaquin, dr sierra called, ordered d/c merrem, start on levaquin 500mg iv daily x 5days uti. started on iv n.s. @ 100ml/hr.
[2020-06-29] MEDS ORDERED: IV NS 1000 ML 1,000 ML IV SCH (21:45)
[2020-06-29] MEDS: IV NS 1000 ML 1,000 ML IV PRN (21:48)
[2020-06-29] MEDS ORDERED: MEROPENEM 1 G in IV NORMAL SALINE 100 ML IV SCH (22:00)
[2020-06-30] VITALS: BP 112/61
[2020-06-30] MEDS: levoFLOXacin 500 MG/D5W 500 MG in PREMIXED 1 EACH IV SCH (01:53)
[2020-06-30 02:11] VITALS: BP 118/71
--- NOTE | 2020-06-30 03:12 | NUR ---
started on levaquin 500mg iv, no adverse reaction noted, had large bm, pt more awake, no respiratory distress noted.
[2020-06-30] MEDS: MIDODRINE 10 MG PEG SCH ×3 (06:00→22:31)
[2020-06-30] MEDS: OMEPRAZOLE 20 MG CAPSULE.DR GT SCH (06:04)
[2020-06-30] MEDS: MULTIVIT, IRON, MIN NO. 8, FA TABLET GT SCH (06:04)
[2020-06-30 07:09] LABS: BASOPHILS % (AUTO) 0.1 % (0.0-2.0); LYMPHOCYTES # (AUTO) 0.6 K/uL (20.0-40.0); LYMPHOCYTES % (AUTO) 2.9 % (20.5-51.5); MEAN CORPUSCULAR HEMOGLOBIN 31.6 uug (24.7-32.8); MEAN CORPUSCULAR HGB CONC 33 g/dL (32.3-35.6); MEAN CORPUSCULAR VOLUME 94.8 fL (75.5-95.3); PLATELET COUNT (AUTO) 176 K/uL (179-408); WHITE BLOOD COUNT (AUTO) 20.7 K/uL (3.8-11.8)
[2020-06-30 07:32] LABS: BILIRUBIN,TOTAL 1.8 mg/dL (0.2-1.0); CREATININE 0.8 mg/dL (0.6-1.3); POTASSIUM 3.9 mmol/L (3.5-5.1)
[2020-06-30 07:57] VITALS: BP 109/64
[2020-06-30] MEDS: FERROUS SULFATE 330 MG/7.5 ML UDC- FOR SA ONLY GT SCH ×2 (08:59→20:12)
[2020-06-30] MEDS: DOCUSATE SODIUM 100 MG/10 ML LIQUID UDC GT SCH (08:59)
[2020-06-30] MEDS: HYDROGEN PEROXIDE 3% 118 ML BOTTLE TP SCH ×2 (09:00→20:05)
[2020-06-30] MEDS: PROTEIN SUPPLEMENT (PROSTAT) 30 ML LIQUID PEG SCH ×2 (09:01→20:12)
[2020-06-30] MEDS: NUTRISOURCE FIBER 4 GM PACKET PEG SCH ×2 (09:01→20:12)
[2020-06-30] MEDS: Z GUARD REMEDY PASTE 57 GM TUBE TOP SCH ×2 (09:01→20:12)
[2020-06-30] MEDS: TIZANIDINE HCL 4 MG TABLET PEG SCH ×2 (09:01→17:38)
[2020-06-30] MEDS: ACETAMINOPHEN 650 MG/20 ML UDC- SA PATIENTS-PAIN ONLY PEG PRN ×2 (09:15)
[2020-06-30] MEDS: NEOMY/BACITRA/POLYMYXIN B OINT UD PACKET TP SCH ×2 (09:50→20:13)
--- NOTE | 2020-06-30 15:00 | NUR ---
Assisted video chat with pt's mother.
--- NOTE | 2020-06-30 15:00 | NUR ---
PAGED DR LYNNE REGARDING ULTRASOUND RESULT INDICATING CHOLELITHIASIS WITH HYDRONEPHROSIS AND MILDLY ENLARGED LIVER AND URINE CULTURE PRELIMINARY RESULT THAT SHOW GRAM NEGATIVE RODS. WITH NEW ORDERS. NOT AND CARRIED OUT.
--- NOTE | 2020-06-30 16:44 | NUR ---
An email was send to primary family contact due to for potential exposure covid-19 and retesting for covid-19 exam.
[2020-06-30] MEDS: ACETAMINOPHEN 650 MG/20 ML UDC- SA PATIENTS-PAIN ONLY PEG SCH (17:38)
[2020-06-30] MEDS: IV NS 1000 ML 1,000 ML IV PRN (19:50)
[2020-06-30 20:00] VITALS: BP 80/46
[2020-07-01] MEDS: levoFLOXacin 500 MG/D5W 500 MG in PREMIXED 1 EACH IV SCH (01:25)
[2020-07-01 02:00] VITALS: BP 85/51
[2020-07-01] MEDS: MIDODRINE 10 MG PEG SCH (05:40)
[2020-07-01] MEDS: OMEPRAZOLE 20 MG CAPSULE.DR GT SCH (05:40)
[2020-07-01 05:45] VITALS: BP 89/48
[2020-07-01 05:59] VITALS: BP 90/57
--- NOTE | 2020-07-01 06:56 | NUR ---
Patient was sent for CT abdomen/pelvis with contrast, resulted with mod Right hydroureter nephrosis with 11mm obstructiong stone distal ureter. Multiple non obstructing Right renal calculi. Preliminary result for urine culture with more than 100,000 gram negative rods. With infusing NS at 100ml/hr continously and levaquin 500mg IVPB Q24 hours x 5 days. Administered Levaquin today day 2 of 5 on Left wrist g 22, site patent without infiltration/infection. Patient spike a temp of 102.9, acetaminophen administered and cooling measures in place. Patient voiding(diapered change) minimal urine. Bladder scanned and resulted with greatest volume of 95ml. Fever resolved with measures. Monitored vitals. MD notified Dr. Batsheva Wu ordered to transfer to ER. Orders noted and carried out. Bedside report to ER nurse.
[2020-07-01] MEDS ORDERED: GUAR1PAC4 GT (07:01)
[2020-07-01] MEDS ORDERED: levofloxacin IV (07:01)
[2020-07-01] MEDS ORDERED: OMEP20CA15 GT (07:01)
[2020-07-01] MEDS ORDERED: DOCU100C36 GT (07:01)
[2020-07-01] MEDS ORDERED: MIDO10TA GT (07:01)
[2020-07-01] MEDS ORDERED: GLYC30DR4 OP (07:01)
--- NOTE | 2020-07-01 09:48 | NUR ---
PT'S MOTHER WAS NOTIFIED ABOUT TRANSFER AND ACCORDING TO FOREIGN EXCHANGE POSITION CLERK ADMITTED TO THE ACUTE UNIT,PT'S MOTHER IN AGREEMENT AND SHE ONLY REQUESTED TO . N NURSE TO HAVE DR. LYNNE TO CALL HER IN HIS TIME TO TALK ABOUT PT.'S CONDITION AND SHE STATED THAT SHE TRUST DR. LYNNE .
--- NOTE | 2020-07-01 09:55 | NUR ---
DR. GUERA JEROME WAS NOTIFIED THAT THE PT'S MOTHER DEMETRICE WANTED TO TALK TO HIM RE: TRANSFER OF PT. AND ADMISSION TO ACUTE SETTING ACCORDING TO WELL LOGGER BESS AND HE STATED THAT HE WILL DO IT.
--- NOTE | 2020-07-02 16:27 | NUR ---
This [facility] received a [facility] Request for Information form for the patient. [facility] is requesting a copy of patient's most recent bank statement. [facility] obtained the requested item from accounting (May 2020 bank statement) and mailed it to [facility] at the following address: [facility] [address], [address] [place] [address]
== END 2020-07-01 06:56 | disposition short-term general hospital (02) | DRG 189 ==
LOC: SA
PROVIDERS: ADMIT Specialist; ATTEND Specialist
DX: J96.10 Chronic respiratory failure, unspecified whether with hypoxia or hypercapnia (principal); A41.9 Sepsis, unspecified organism; R53.2 Functional quadriplegia; G93.1 Anoxic brain damage, not elsewhere classified; G93.40 Encephalopathy, unspecified; D64.9 Anemia, unspecified; K21.9 Gastro-esophageal reflux disease without esophagitis; K59.00 Constipation, unspecified; R13.10 Dysphagia, unspecified; Z93.1 Gastrostomy status; V89.2XXD Person injured in unspecified motor-vehicle accident, traffic, subsequent encounter; S12.000D Unspecified displaced fracture of first cervical vertebra, subsequent encounter for fracture with routine healing; S14.101D Unspecified injury at C1 level of cervical spinal cord, subsequent encounter; Z88.0 Allergy status to penicillin; Z88.5 Allergy status to narcotic agent; R25.2 Cramp and spasm; Z93.0 Tracheostomy status; Z66 Do not resuscitate; I95.9 Hypotension, unspecified
CPT/HCPCS: 36415; 71045; 74018; 76705; 83605; 83690; 83735; 84100; 85025; 87040; 87077; 87086; 94640; A4663; C1758; J1956; J7030; U0003

== ENCOUNTER 2020-06-30 19:07 | Outpatient (CLI) | payer OTHER ==
[2020-06-30] MEDS ORDERED: IV NORMAL SALINE 250 ML IV ONE (20:48)
[2020-06-30] MEDS ORDERED: IOHEXOL 300MG/ML 100 ML INFUS..BTL ONE (20:48)
[2020-06-30] MEDS ORDERED: SWABABLE VALVE TRANSFER SET EA MC ONE (20:48)
[2020-07-01] MEDS ORDERED: OMEP20CA15 GT (07:01)
[2020-07-01] MEDS ORDERED: GLYC30DR4 OP (07:01)
[2020-07-01] MEDS ORDERED: levofloxacin IV (07:01)
[2020-07-01] MEDS ORDERED: MIDO10TA GT (07:01)
[2020-07-01] MEDS ORDERED: DOCU100C36 GT (07:01)
[2020-07-01] MEDS ORDERED: GUAR1PAC4 GT (07:01)
== END 2020-06-30 23:59 | disposition still patient (30) ==
LOC: RAD 19:07
PROVIDERS: ATTEND Specialist
DX: K80.20 Calculus of gallbladder without cholecystitis without obstruction (principal); N13.2 Hydronephrosis with renal and ureteral calculous obstruction; J90 Pleural effusion, not elsewhere classified; J98.11 Atelectasis
CPT/HCPCS: 74177; Q9967; J7050

== ENCOUNTER 2020-07-01 06:33 | Inpatient (IN) | payer OTHER ==
[2020-07-01] VITALS (17 sets, daily range): BP systolic 79–102; BP diastolic 44–64
[~2020-07-01] VITALS: Ht 165.1 cm; Wt 74.4 kg
[2020-07-01] MEDS ORDERED: TAMSULOSIN HCL 0.4 MG CAP.SR.24H PO ONE (07:00)
[2020-07-01] MEDS ORDERED: PIPERACILLIN SODIUM/TAZOBACTAM 3.375 G in IV DEXTROSE 5% 50 ML IV ONE (07:00)
[2020-07-01] MEDS ORDERED: VANCOMYCIN IV 1,000 MG in IV DEXTROSE 5% 250 ML IV ONE (07:00)
[2020-07-01] MEDS ORDERED: GUAR1PAC4 GT (07:01)
[2020-07-01] MEDS ORDERED: OMEP20CA15 GT (07:01)
[2020-07-01] MEDS ORDERED: MIDO10TA GT (07:01)
[2020-07-01] MEDS ORDERED: DOCU100C36 GT (07:01)
[2020-07-01] MEDS ORDERED: levofloxacin IV (07:01)
[2020-07-01] MEDS ORDERED: GLYC30DR4 OP (07:01)
--- NOTE | 2020-07-01 07:05 | NUR ---
Handoff to Mitali, [place]
[2020-07-01] MEDS ORDERED: PIPERACILLIN/TAZOBACTAM/D5W 50 ML IV ONE (07:11)
[2020-07-01] MEDS ORDERED: TAMSULOSIN HCL 0.4 MG CAP.SR.24H ONE (07:11)
[2020-07-01] MEDS ORDERED: VANCOMYCIN IV 200 ML ONE (07:12)
[2020-07-01] MEDS ORDERED: IV NORMAL SALINE 1000 ML BAG IV ONE (07:30)
[2020-07-01 07:33] LABS: BASOPHILS % (AUTO) 0.1 % (0.0-2.0); HEMATOCRIT 34.4 % (31.2-41.9); HEMOGLOBIN 11.3 g/dL (10.9-14.3); LYMPHOCYTES # (AUTO) 0.3 K/uL (20.0-40.0); LYMPHOCYTES % (AUTO) 1.4 % (20.5-51.5); MEAN CORPUSCULAR HEMOGLOBIN 31.5 uug (24.7-32.8); MEAN CORPUSCULAR HGB CONC 33 g/dL (32.3-35.6); MEAN CORPUSCULAR VOLUME 95.6 fL (75.5-95.3); MONOCYTES # (AUTO) 1.2 K/uL (2.0-10.0); MONOCYTES % (AUTO) 4.8 % (0.0-11.0); NEUTROPHILS # (AUTO) 22.7 K/uL (1.8-8.9); NEUTROPHILS % (AUTO) 93.7 % (38.5-71.5); PLATELET COUNT (AUTO) 148 K/uL (179-408); RED BLOOD CELL COUNT(AUTO) 3.59 MIL/uL (3.63-4.92); WHITE BLOOD COUNT (AUTO) 24.3 K/uL (3.8-11.8)
[2020-07-01 07:39] LABS: *BILIRUBIN,URIN NEGATIVE (NEGATIVE); *BLOOD, URINE 2+ (NEGATIVE); *CLARITY,URINE SLIGHTLY CLOUDY (CLEAR); *COLOR,URINE YELLOW (YELLOW); *KETONES,URINE NEGATIVE (NEGATIVE); *UROBILINOGEN,URINE 0.2 E.U./dl (NORMAL); LEUKOCYTE ESTERASE ,URINE 1+ (NEGATIVE); NITRITE, URINE NEGATIVE (NEGATIVE); PH,URINE 5.5 (5.0-8.0); UGLUCOSE NEGATIVE (NEGATIVE)
[2020-07-01 07:42] LABS: BILIRUBIN,DIRECT 0.6 mg/dL (0.0-0.2); BILIRUBIN,TOTAL 1.6 mg/dL (0.2-1.0); CREATININE 1.2 mg/dL (0.6-1.3); POTASSIUM 3.9 mmol/L (3.5-5.1); TOTAL PROTEIN, SERUM 6.5 g/dL (6.4-8.2)
[2020-07-01 07:51] LABS: MUCUS,URINE FEW /LPF (0-FEW)
[2020-07-01 07:52] LABS: SQUAMOUS EPITHELIAL CELL,UR FEW /HPF (NONE SEEN)
[2020-07-01 07:53] LABS: BACTERIA,URINE MODERATE /HPF (NONE SEEN)
--- NOTE | 2020-07-01 07:55 | NUR ---
Received patient in shift report urine collected via straight cath
--- NOTE | 2020-07-01 08:23 | NUR ---
Interventional radiology noted speaking with MD Forman at this time [facility] [phone] #[id number]
--- NOTE | 2020-07-01 08:30 | NUR ---
Per interventional radiologist MD Mclean, patient is to remain NPO and no blood thinners are to be given
[2020-07-01] MEDS ORDERED: LIDOCAINE HCL 1% 20 ML VIAL ONE (09:37)
--- NOTE | 2020-07-01 10:11 | NUR ---
report given to [facility], room 2
--- NOTE | 2020-07-01 10:30 | NUR ---
Pt. admitted to CCU bed 2 , under care of Dr. Lisa PONCE, patient transferred by twoCCU nurses and 2 respiratory therapist, cardiac exercise specialist used for transport
--- NOTE | 2020-07-01 10:42 | NUR ---
1500 ml of normal saline infused in Er prior to patient transfer
--- NOTE | 2020-07-01 10:42 | NUR ---
Normal saline continued on CCU
--- NOTE | 2020-07-01 10:45 | NUR ---
Admit pt.to CCU #2.call for adm.orders to .
[2020-07-01] MEDS ORDERED: ONDANSETRON 4 MG/2 ML VIAL IV PRN (11:15)
[2020-07-01] MEDS ORDERED: ALBUTEROL SULFATE 2.5 MG/3 ML NEBU NEB PRN (11:15)
[2020-07-01] MEDS: IV NS 1000 ML 1,000 ML IV PRN ×2 (11:50→20:02)
[2020-07-01] MEDS: ACETAMINOPHEN 325 MG TABLET GT PRN (12:03)
[2020-07-01] MEDS ORDERED: NALOXONE 2 MG/2 ML SYRINGE IV PRN (12:45)
[2020-07-01] MEDS ORDERED: MIDAZOLAM HCL 10 MG/2 ML VIAL IV PRN (12:45)
[2020-07-01] MEDS ORDERED: FENTANYL CITRATE 250 MCG/5 ML AMPUL IV PRN (12:45)
--- NOTE | 2020-07-01 12:45 | NUR ---
Pt.mom on the phone,updated with pt.condition and plan of care.
[2020-07-01] MEDS: MIDODRINE HCL 5 MG TABLET GT SCH ×2 (13:07→21:28)
--- NOTE | 2020-07-01 13:10 | NUR ---
Pt.was seen by .
[2020-07-01] MEDS ORDERED: MORPHINE SULFATE 2 MG/1 ML DISP.SYRIN IM PRN (13:45)
--- NOTE | 2020-07-01 13:45 | NUR ---
on the phone,was updated with pt.condition.insertion of nephrostomy on hold due pt. HR high and bp on low side. was notified. will be on case.
[2020-07-01] MEDS ORDERED: MEROPENEM 1 G in IV NORMAL SALINE 100 ML IV ONE (14:00)
[2020-07-01] MEDS ORDERED: PHENYLEPHRINE IV 50 MG in IV NORMAL SALINE 245 ML IV PRN (15:15)
--- NOTE | 2020-07-01 16:45 | NUR ---
Pt.mom at bedside updated with pt. condition.
--- NOTE | 2020-07-01 16:57 | NUR ---
[facility] air mattress Reservation #[phone]
[2020-07-01] MEDS: TIZANIDINE HCL 4 MG TABLET GT SCH (17:24)
[2020-07-01] MEDS: VANCOMYCIN IV 750 MG in IV DEXTROSE 5% 250 ML IV SCH (17:25)
--- NOTE | 2020-07-01 19:30 | NUR ---
Report received. Patient admitted today from subacute DX: sepsis, UTI. Eyes open, ? track, contracted. monitor car operator: ST rate 120's, SBP in the 80's, MAPs above 60. Assessment completed. Patient turned and repositioned. Payan catheter in place; with cloudy urine. Another IV started to LFA with #20 angio by Mateo HAGAN. NS infused. Addendum: 07/01/20 at 2058 by LARISSA HOLMAN RN Amended: Links added. Addendum: 07/01/20 at 2114 by LARISSA HOLMAN RN Amended: Links added. Addendum: 07/01/20 at 2121 by LARISSA HOLMAN RN Amended: Links added.
[2020-07-01] MEDS: FERROUS SULFATE 300 MG/5 ML LIQUID UDC GT SCH (20:15)
[2020-07-01] MEDS: NUTRISOURCE FIBER 4 GM PACKET GT SCH (20:19)
--- NOTE | 2020-07-01 20:30 | NUR ---
Seen by Jayson; informed of patient's condition. Addendum: 07/01/20 at 2115 by LARISSA HOLMAN RN Amended: Links added. Addendum: 07/01/20 at 2121 by LARISSA HOLMAN RN Amended: Links added.
[2020-07-01] MEDS: LEVALBUTEROL HCL NEB 0.63 MG/3 ML NEBU NEB SCH (20:48)
--- NOTE | 2020-07-01 21:00 | NUR ---
Midline gauge 18 inserted by [facility] marco antonio FISH Main IV NS attached to newly inserted midline. Addendum: 07/01/20 at 2121 by LARISSA HOLMAN RN Amended: Links added.
[2020-07-01] MEDS: MEROPENEM 1 G in IV NORMAL SALINE 100 ML IV SCH (21:28)
[2020-07-01] MEDS: HYDROCODONE/APAP 5-325MG TABLET PO PRN (21:33)
--- NOTE | 2020-07-01 21:33 | NUR ---
Remains tachycardic; SBPs above 90. [place] given via patent GT. Addendum: 07/02/20 at 0228 by LARISSA HOLMAN RN Amended: Links added.
--- NOTE | 2020-07-01 22:30 | NUR ---
[place] effective.
[2020-07-02] VITALS (42 sets, daily range): BP systolic 91–137; BP diastolic 51–82
[2020-07-02] MEDS: LEVALBUTEROL HCL NEB 0.63 MG/3 ML NEBU NEB SCH ×4 (01:48→19:16)
[2020-07-02 05:00] LABS: BASOPHILS % (AUTO) 0.1 % (0.0-2.0); EOSINOPHILS # (AUTO) 3.6 K/uL (0.0-0.7); EOSINOPHILS % (AUTO) 13.4 % (0.0-7.0); HEMATOCRIT 28.9 % (31.2-41.9); HEMOGLOBIN 9.4 g/dL (10.9-14.3); LYMPHOCYTES # (AUTO) 0.6 K/uL (20.0-40.0); LYMPHOCYTES % (AUTO) 2.3 % (20.5-51.5); MEAN CORPUSCULAR HGB CONC 33 g/dL (32.3-35.6); MONOCYTES # (AUTO) 1.1 K/uL (2.0-10.0); MONOCYTES % (AUTO) 4.1 % (0.0-11.0); NEUTROPHILS # (AUTO) 21.6 K/uL (1.8-8.9); NEUTROPHILS % (AUTO) 80.1 % (38.5-71.5); PLATELET COUNT (AUTO) 100 K/uL (179-408); RED BLOOD CELL COUNT(AUTO) 3.04 MIL/uL (3.63-4.92)
[2020-07-02 05:01] LABS: MAGNESIUM 1.8 mg/dL (1.8-2.4); PHOSPHOROUS 2.2 mg/dL (2.5-4.9); POTASSIUM 3.4 mmol/L (3.5-5.1)
[2020-07-02] MEDS: MIDODRINE HCL 5 MG TABLET GT SCH ×3 (05:17→21:17)
[2020-07-02] MEDS: VANCOMYCIN IV 750 MG in IV DEXTROSE 5% 250 ML IV SCH ×2 (05:19→18:15)
[2020-07-02 05:33] LABS: THYROID STIMULATING HORMONE 1.725 mIU/mL (0.358-3.740)
[2020-07-02] MEDS: MEROPENEM 1 G in IV NORMAL SALINE 100 ML IV SCH ×3 (05:46→21:18)
--- NOTE | 2020-07-02 06:39 | NUR ---
HR now in the 90's, SR. BPs above 90 systole and O2 saturations remain good on 6L trache aerosol mask. Urine output improved =375 ml x 12 hours. Main IVF infusing at 75 ml/H via PATRICE midline. Addendum: 07/02/20 at 0640 by LARISSA HOLMAN RN Amended: Links added.
[2020-07-02] MEDS ORDERED: FENTANYL CITRATE 250 MCG/5 ML AMPUL IV PRN (07:00)
[2020-07-02] MEDS ORDERED: NALOXONE 2 MG/2 ML SYRINGE IV PRN (07:00)
[2020-07-02] MEDS ORDERED: MIDAZOLAM HCL 10 MG/2 ML VIAL IV PRN (07:00)
[2020-07-02] MEDS: DOCUSATE SODIUM 100 MG/10 ML LIQUID UDC GT SCH (07:32)
[2020-07-02] MEDS: FERROUS SULFATE 300 MG/5 ML LIQUID UDC GT SCH ×2 (07:32→20:21)
[2020-07-02] MEDS: NUTRISOURCE FIBER 4 GM PACKET GT SCH ×2 (07:32→20:26)
[2020-07-02] MEDS: TIZANIDINE HCL 4 MG TABLET GT SCH ×2 (07:33→16:32)
[2020-07-02] MEDS: MULTIVITAMINS,THERAPEUTIC TABLET GT SCH (07:33)
--- NOTE | 2020-07-02 07:35 | NUR ---
Pt.noted to start Desat down to 90%, was suction, with small amount white secretion. RT was paged for HHNtx given.
[2020-07-02] MEDS ORDERED: POTASSIUM CHLORIDE 20 MEQ POWDER PACKET GT ONE (08:00)
--- NOTE | 2020-07-02 08:15 | NUR ---
Pt.was seen by SARAH GRAY MD
[2020-07-02] MEDS: IV NS 1000 ML 1,000 ML IV PRN ×2 (09:52→18:18)
--- NOTE | 2020-07-02 10:45 | NUR ---
Pt.was taken to CT for Nephrostomy placement.tolerated well.
--- NOTE | 2020-07-02 12:00 | NUR ---
Pt.back to room post right nephrostomy placement.
--- NOTE | 2020-07-02 13:15 | NUR ---
Pt. was seen by , was notified about resp.status changes,pt.req.higher FiO2,and CXR resolt.
[2020-07-02] MEDS: Z GUARD REMEDY PASTE 57 GM TUBE TOP PRN ×2 (14:53→21:24)
[2020-07-02] MEDS: TWOCAL HN 1,000 ML LIQUID GT PRN (15:07)
[2020-07-02] MEDS ORDERED: NEUTRA PHOS PACKET GT ONE (15:15)
--- NOTE | 2020-07-02 15:49 | NUR ---
Pt.mom on the phone,updated with pt.condition and plan of care.
[2020-07-02] MEDS: HYDROCODONE/APAP 5-325MG TABLET PO PRN ×2 (16:32→21:26)
--- NOTE | 2020-07-02 19:30 | NUR ---
Received patient with eyes open, appears to track and responds to name. All extremities contracted and rigid. Monitor: ST rate 110's, SBPs in the 90's. O2 12 L trache mask; saturations above 94%. RT at bedside. Treatment and oral care given by RT. Patient grimaces and clenches teeth during oral care. Turned and repositioned; skin care provided. GT feedings at 25 ml/H; tolerated well. HOB above 30 degrees at all times. Assessment completed. Addendum: 07/02/20 at 2151 by LARISSA HOLMAN RN Amended: Links added. Addendum: 07/02/20 at 2152 by LARISSA HOLMAN RN Amended: Links added.
--- NOTE | 2020-07-02 20:00 | NUR ---
Patient's mother Morena mao; updated of condition. Addendum: 07/02/20 at 2153 by LARISSA HOLMAN RN Amended: Links added.
[2020-07-03] VITALS (32 sets, daily range): BP systolic 105–137; BP diastolic 60–75
[2020-07-03] MEDS: LEVALBUTEROL HCL NEB 0.63 MG/3 ML NEBU NEB SCH ×4 (01:13→19:29)
--- NOTE | 2020-07-03 02:00 | NUR ---
O2 sat 89-91%. Remains tachycardic, afebrile. Suctioned via trache for scant amounts of white secretions. RT called. Placed on 100% aerosol trache mask by RT. Repositioned. O2 saturations improved to 94-95%. Will monitor. Addendum: 07/03/20 at 0220 by LARISSA HOLMAN RN Amended: Links added.
--- NOTE | 2020-07-03 02:15 | NUR ---
increased cool aeroslol to 100% pt 02 sat dropped to 89% only. RN (Liz) aware.
[2020-07-03] MEDS: ACETAMINOPHEN 325 MG TABLET GT PRN (02:35)
--- NOTE | 2020-07-03 02:35 | NUR ---
Awake, RR=27-30, O2 sat 95%. Medicated with Tylenol via GT for mild generalized discomfort.
--- NOTE | 2020-07-03 04:00 | NUR ---
Temp=98.2, face flushed. Temp checked rectally=98.7. Still in ST, HR 110's-120's. Am bath given. With episodes of tachypnea during care and stimulation. BPs stable. Skin care provided. R nephrostomy dressing dry and intact. With small amounts of serosanguineous drainage.
[2020-07-03 04:54] LABS: BASOPHILS % (AUTO) 0.2 % (0.0-2.0); EOSINOPHILS # (AUTO) 0.3 K/uL (0.0-0.7); EOSINOPHILS % (AUTO) 1.8 % (0.0-7.0); HEMATOCRIT 30.8 % (31.2-41.9); HEMOGLOBIN 10.1 g/dL (10.9-14.3); LYMPHOCYTES # (AUTO) 0.6 K/uL (20.0-40.0); LYMPHOCYTES % (AUTO) 3.2 % (20.5-51.5); MEAN CORPUSCULAR HEMOGLOBIN 31.4 uug (24.7-32.8); MEAN CORPUSCULAR HGB CONC 33 g/dL (32.3-35.6); MEAN CORPUSCULAR VOLUME 95.5 fL (75.5-95.3); MONOCYTES # (AUTO) 0.7 K/uL (2.0-10.0); MONOCYTES % (AUTO) 3.7 % (0.0-11.0); NEUTROPHILS % (AUTO) 91.1 % (38.5-71.5); PLATELET COUNT (AUTO) 94 K/uL (179-408); RED BLOOD CELL COUNT(AUTO) 3.22 MIL/uL (3.63-4.92); WHITE BLOOD COUNT (AUTO) 18.7 K/uL (3.8-11.8)
[2020-07-03 05:04] LABS: CREATININE 0.8 mg/dL (0.6-1.3); MAGNESIUM 1.9 mg/dL (1.8-2.4); POTASSIUM 3.5 mmol/L (3.5-5.1)
[2020-07-03] MEDS: VANCOMYCIN IV 750 MG in IV DEXTROSE 5% 250 ML IV SCH ×2 (05:16→17:13)
[2020-07-03] MEDS: MIDODRINE HCL 5 MG TABLET GT SCH ×3 (06:00→21:28)
[2020-07-03] MEDS: MEROPENEM 1 G in IV NORMAL SALINE 100 ML IV SCH ×3 (06:03→21:29)
--- NOTE | 2020-07-03 06:15 | NUR ---
Midodrine held; BPs above 120. Remains in ST. O2 saturations 92% on 100% trache mask. Call placed to [facility] re: respiratory status. Joshua LANE field identification specialist; awaiting call back. Addendum: 07/03/20 at 0618 by LARISSA HOLMAN RN Amended: Links added.
--- NOTE | 2020-07-03 06:28 | NUR ---
Joshua PRESSURIZATION MECHANIC called back; informed of patient's condition. Orders received.
--- NOTE | 2020-07-03 06:55 | NUR ---
End of shift notes: Remains tachycardic, rate 117-128, BPs stable. More obtunded. Doesn't open eyes to name or pain. O2 saturations 91-93% on FIO2 100%. Chest sounds with crackles. Main IVF at TKO for now while IVPB infusing. Intake and Output the past 3 days + about 4L. Will endorse to am shift. Tolerating GT feedings at 25ml/H; off 3034-7850. PCXR done.
[2020-07-03 07:38] LABS: ABG BASE EXCESS -5.2 mmol/L; ABG HCO3 22.6 mmol/L; ABG PCO2 54.8 mmHg (35.0-45.0); ABG PH 7.233 (7.350-7.450); ABG PO2 49.5 mmHg (75.0-100.0); ABG SITE RIGHT RADIAL; ABG TOTAL HEMOGLOBIN 11.5 G/dL (12.0-16.0); COHb 0.2 % (0.5-1.5); MetHb 0.5 % (0.0-1.5); O2Hb 81.9 % (94.0-97.0)
--- NOTE | 2020-07-03 07:45 | NUR ---
Contacted Dr. Benitez to notify him of ABG results for patient. Left message, will await return call.
--- NOTE | 2020-07-03 07:50 | NUR ---
Contacted Dr. Camejo to notify him of patients ABG results. received orders to place patient on vent with settings of ac 20, TV 450, PEEP 5 100% fio2.
--- NOTE | 2020-07-03 07:59 | NUR ---
Contacted patients mother and notified her that it is recommended by the dental associate to put her on a ventilator due to poor ABG results. Mother gave her consent to place patient on ventilator at this time.
--- NOTE | 2020-07-03 08:23 | NUR ---
Mother called back to notify this development writer that she does not want to place patient on the ventilator and decided to rescind her rescind her prior consent.
--- NOTE | 2020-07-03 08:26 | NUR ---
Contacted Dr. Camejo to notify him of mothers wishes to not place patient on the ventilator. Awaiting call back.
--- NOTE | 2020-07-03 08:30 | NUR ---
Notified CARDIOVASCULAR PHYSICIAN ASSISTANT Gonzalez about patients condition, Pulmonology orders and mothers wishes to not have patient put on Ventilator.
--- NOTE | 2020-07-03 08:35 | NUR ---
Received call back from Dr. Camejo. Notified him that the mother is refusing ventilator support at this time.
[2020-07-03] MEDS: HYDROCODONE/APAP 5-325MG TABLET PO PRN ×4 (08:37→21:03)
[2020-07-03] MEDS: MULTIVITAMINS,THERAPEUTIC TABLET GT SCH (08:37)
[2020-07-03] MEDS: TIZANIDINE HCL 4 MG TABLET GT SCH ×2 (08:37→17:13)
[2020-07-03] MEDS: FERROUS SULFATE 300 MG/5 ML LIQUID UDC GT SCH ×2 (08:37→20:27)
[2020-07-03] MEDS: DOCUSATE SODIUM 100 MG/10 ML LIQUID UDC GT SCH (08:37)
[2020-07-03] MEDS: TWOCAL HN 1,000 ML LIQUID GT PRN (08:38)
[2020-07-03] MEDS: NUTRISOURCE FIBER 4 GM PACKET GT SCH ×2 (08:39→21:03)
--- NOTE | 2020-07-03 08:58 | NUR ---
Attempted to contact Dr. Benitez again to notify him of patient condition. Awaiting return call.
--- NOTE | 2020-07-03 09:54 | NUR ---
Received return call from Dr. Benitez, notified him of patient condition and lab results. No new orders at this time.
--- NOTE | 2020-07-03 13:08 | NUR ---
Dr. Martin Cormier in the unit to see and assess pt. MD aware that pt's mom refused ventilator earlier. MD asked to talk to pt's mother to discuss comfort care. Called Morena, pt's mother at [phone] Martin Cormier spoke to her on the telephone. Per MD, Morena said to continue with current care, no CPR and no ventilator.
[2020-07-03] MEDS ORDERED: NEUTRA PHOS PACKET GT ONE (15:45)
--- NOTE | 2020-07-03 19:03 | NUR ---
Patient continues to be sinus tachycardia on the monitor. Hemodynamically stable. Patient is on 15L, 100% fio2 with a trach collar with saturation at 81%. Patient is tachypneic. GTube in place with tube feeding running at 25cc/hr. Payan catheter in place and draining well. Good output from nephrostomy tube. Air mattress inflated, bed in low position, side rails up x2.
--- NOTE | 2020-07-03 19:30 | NUR ---
Received patient tachypneic, tachycardic, very obtunded, doesn't open eyes to name or pain. O2 saturations 80% on FIO2 100% via trache mask. As per report patient's mother refused vent support. Patient is DNR. Turned and repositioned. Skin care provided. Saturation decreased to 70's during care and repositioning. HOB elevated above 30 degrees. GT feedings at 25 ml/H resumed after turning and repositioning. Assessment completed; refer to ICU flow sheet for details. Addendum: 07/03/20 at 2020 by LARISSA HOLMAN RN Amended: Links added.
--- NOTE | 2020-07-03 19:45 | NUR ---
Gave pt routine breathing tx per MD orders. Pt SP02 remains at 87% on 100% Fi02. Pt code status remains DNR. Family requested to not put pt on vent per BENTLEY Gomez. BENTLEY Gomez made aware of pt status. Will continue to monitor.
--- NOTE | 2020-07-03 21:00 | NUR ---
Patient's mother Morena called; updated of patient's condition. Discussed with her the code status and she stated that her daughter is a full DNR, doesn't want anymore medications other the current meds. Okayed RN to given her [place].
--- NOTE | 2020-07-03 21:10 | NUR ---
Patient's daughter Brian called. Stated she and patient's want to come and see the patient clifford. Discussed with Staff [employer] Officer Azucena. Okayed for both to visit. Morena patient's mother also informed of their intended visit.
--- NOTE | 2020-07-03 22:10 | NUR ---
Patient's family at bedside. Addendum: 07/03/20 at 2213 by LARISSA HOLMAN RN Amended: Links added. Addendum: 07/03/20 at 2212 by LARISSA HOLMAN RN Amended: Links added. Addendum: 07/03/20 at 2214 by LARISSA HOLMAN RN Amended: Links added. Addendum: 07/03/20 at 2214 by LARISSA HOLMAN RN Amended: Links added. Addendum: 07/03/20 at 2214 by LARISSA HOLMAN RN Amended: Links added. Addendum: 07/03/20 at 2216 by LARISSA HOLMAN RN Amended: Links added. Addendum: 07/03/20 at 2216 by LARISSA HOLMAN RN Amended: Links added. Addendum: 07/03/20 at 2217 by LARISSA HOLMAN RN Amended: Links added. Addendum: 07/03/20 at 2217 by LARISSA HOLMAN RN Amended: Links added. Addendum: 07/03/20 at 2217 by LARISSA HOLMAN RN Amended: Links added.
--- NOTE | 2020-07-03 23:00 | NUR ---
Patient's family including daughter Brian visited for about an hour. Aware of patient's VS.
[2020-07-04] VITALS (25 sets, daily range): BP systolic 0–128; BP diastolic 0–70
[2020-07-04] MEDS: ACETAMINOPHEN 325 MG TABLET GT PRN (00:08)
[2020-07-04] MEDS: LEVALBUTEROL HCL NEB 0.63 MG/3 ML NEBU NEB SCH ×3 (01:15→12:14)
--- NOTE | 2020-07-04 01:30 | NUR ---
RT Aden at bedside. Treatments and routine trache care done by him.
[2020-07-04] MEDS: VANCOMYCIN IV 750 MG in IV DEXTROSE 5% 250 ML IV SCH (05:09)
[2020-07-04 05:16] LABS: BASOPHILS % (AUTO) 0.1 % (0.0-2.0); EOSINOPHILS # (AUTO) 0.3 K/uL (0.0-0.7); HEMATOCRIT 36.4 % (31.2-41.9); HEMOGLOBIN 11.6 g/dL (10.9-14.3); MEAN CORPUSCULAR HEMOGLOBIN 30.6 uug (24.7-32.8); PLATELET COUNT (AUTO) 108 K/uL (179-408)
[2020-07-04 05:18] LABS: LYMPHOCYTES # (AUTO) 0.7 K/uL (20.0-40.0); MEAN CORPUSCULAR HGB CONC 32 g/dL (32.3-35.6); MEAN CORPUSCULAR VOLUME 96.2 fL (75.5-95.3); MONOCYTES # (AUTO) 1.3 K/uL (2.0-10.0); MONOCYTES % (AUTO) 3.7 % (0.0-11.0); NEUTROPHILS % (AUTO) 93.2 % (38.5-71.5); RED BLOOD CELL COUNT(AUTO) 3.78 MIL/uL (3.63-4.92)
[2020-07-04 05:37] LABS: WHITE BLOOD COUNT (AUTO) 34.3 K/uL (3.8-11.8)
[2020-07-04 05:44] LABS: CREATININE 0.9 mg/dL (0.6-1.3); MAGNESIUM 2.3 mg/dL (1.8-2.4); PHOSPHOROUS 3.8 mg/dL (2.5-4.9); POTASSIUM 3.5 mmol/L (3.5-5.1)
[2020-07-04] MEDS: MIDODRINE HCL 5 MG TABLET GT SCH ×2 (06:00→12:55)
[2020-07-04] MEDS: MEROPENEM 1 G in IV NORMAL SALINE 100 ML IV SCH (06:11)
--- NOTE | 2020-07-04 06:26 | NUR ---
Remains tachycardic, tachypneic with agonal breathing and O2 saturations in the 60's on 100% FIO2 via trache mask. Lips dusky. BPs have been stable. Midodrine due at 0600 not given SBP above 120. Urine output =325ml for the shift and R nephrostomy [id number]. Nephrostomy site dressing dry and intact. Condition grim. Addendum: 07/04/20 at 0631 by LARISSA HOLMAN RN Amended: Links added.
[2020-07-04 06:42] LABS: BAND % (MANUAL) 14 % (0-10); LYMPHOCYTES % (MANUAL) 3 % (20-40); METAMYELOCYTES % 2 % (0-1); MONOCYTES % (MANUAL) 2 % (2-10); NEUTROPHILS % (MANUAL) 79 % (42-75)
--- NOTE | 2020-07-04 07:16 | NUR ---
Morena, patients mother called in to check on status. Report given as to the patients status at this time. Also, notified that patient may want organ donation. Notified mother that we will have [employer] contact her to discuss.
--- NOTE | 2020-07-04 07:56 | NUR ---
Notified Kvng From ID that the patients white count was elevated today and there she has white discharge from vaginal area. Chest xray significantly worse. Sputum culture was sent. Awaiting response.
[2020-07-04] MEDS ORDERED: PROTEIN SUPPLEMENT (PROSTAT) 30 ML LIQUID GT SCH (08:00)
--- NOTE | 2020-07-04 08:00 | NUR ---
Notified Dr. Benitez of patients WBC level and CXR results. Awaiting response.
[2020-07-04] MEDS: TWOCAL HN 1,000 ML LIQUID GT PRN (08:04)
[2020-07-04] MEDS: MULTIVITAMINS,THERAPEUTIC TABLET GT SCH (08:04)
[2020-07-04] MEDS: NUTRISOURCE FIBER 4 GM PACKET GT SCH (08:04)
[2020-07-04] MEDS: DOCUSATE SODIUM 100 MG/10 ML LIQUID UDC GT SCH (08:04)
[2020-07-04] MEDS: HYDROCODONE/APAP 5-325MG TABLET PO PRN (08:04)
[2020-07-04] MEDS: FERROUS SULFATE 300 MG/5 ML LIQUID UDC GT SCH (08:04)
[2020-07-04] MEDS: TIZANIDINE HCL 4 MG TABLET GT SCH (08:05)
[2020-07-04] MEDS ORDERED: FLUCONAZOLE 200 MG/NS 100ML IV 200 MG in PREMIXED 1 EACH IV SCH (08:30)
--- NOTE | 2020-07-04 08:33 | NUR ---
Contacted [facility] to notify them that patients family wishes for her to be an organ donor. [facility] commercial sales representative notified this science writer that organ donation can only be considered for ventilated patients. Upon cardiac patient will be considered for tissue donation and [facility] should be called for organ donation at that time.
--- NOTE | 2020-07-04 09:00 | NUR ---
Dr. Tyler at bedside to evaluate patient. No new orders at this time.
[2020-07-04] MEDS ORDERED: MORPHINE SULFATE 2 MG/1 ML DISP.SYRIN IV PRN (12:00)
[2020-07-04] MEDS ORDERED: TWOCAL HN 1,000 ML LIQUID GT PRN (12:15)
--- NOTE | 2020-07-04 12:15 | NUR ---
Patients daughter and mother were called to inquire if they wanted to come in as patient appears to be declining swiftly, patients HR slowing down, Breaths became more labored, and Blood pressure dropped to 73/41. Asked mother Morena if she would like us to continue with Blood pressure support medication and she stated that she does not.
--- NOTE | 2020-07-04 12:24 | NUR ---
Patient bradycardic and declining to the 40's and agonal breathing.
--- NOTE | 2020-07-04 13:30 | NUR ---
pt 1330. pt has been asystolic for one minute on the monitor, no palpable pulses, no audible heart tones. respirations are absent for 5 minutes, no breath sounds auscaltated, no pupillary response. pupils fixed and dilated, nonresponsive.
--- NOTE | 2020-07-04 13:35 | NUR ---
Contacted patients daughter and mother to notify them of time of . Neither want to see the patient. Patient will be prepared and taken to the morgue.
--- NOTE | 2020-07-04 14:40 | NUR ---
Patients body prepared by removing lines, drains and dressings. Patient transferred to [facility] at this time.
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
--- NOTE | 2020-07-07 15:15 | NUR ---
JEY was informed by nursing teacher Pio Boone that he attempted to contact the process plant operator's office twice on 07/06, but was unsuccessful on both occasions. Will continue to follow-up.
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
== END 2020-07-04 13:30 | DRG 871 ==
LOC: ER 06:40 → CCU 10:19
PROC: 05H533Z Insertion of Infusion Device into Right Subclavian Vein, Percutaneous Approach (ICD-10-PCS; principal; 2020-07-01)
PROC: B546ZZA Ultrasonography of Right Subclavian Vein, Guidance (ICD-10-PCS; 2020-07-01)
DX: A41.9 Sepsis, unspecified organism (principal); R65.21 Severe sepsis with septic shock; R53.2 Functional quadriplegia; N17.0 Acute kidney failure with tubular necrosis; N13.6 Pyonephrosis; G93.1 Anoxic brain damage, not elsewhere classified; J96.10 Chronic respiratory failure, unspecified whether with hypoxia or hypercapnia; Z99.11 Dependence on respirator [ventilator] status; K59.00 Constipation, unspecified; Z87.442 Personal history of urinary calculi; Z93.0 Tracheostomy status; Z66 Do not resuscitate; K80.20 Calculus of gallbladder without cholecystitis without obstruction; Z20.822 Contact with and (suspected) exposure to COVID-19; R13.10 Dysphagia, unspecified; Z93.1 Gastrostomy status; V89.2XXS Person injured in unspecified motor-vehicle accident, traffic, sequela; S14.109S Unspecified injury at unspecified level of cervical spinal cord, sequela; Z93.6 Other artificial openings of urinary tract status; Z95.828 Presence of other vascular implants and grafts; N13.9 Obstructive and reflux uropathy, unspecified; Z88.0 Allergy status to penicillin; M24.59 Contracture, other specified joint; K21.9 Gastro-esophageal reflux disease without esophagitis; D64.9 Anemia, unspecified; S12.000S Unspecified displaced fracture of first cervical vertebra, sequela; B96.1 Klebsiella pneumoniae [K. pneumoniae] as the cause of diseases classified elsewhere
CPT/HCPCS: 36415; 36600; 70030-TC; 71045; 74150; 75989; 83605; 83735; 84100; 84443; 85025; 85730; 87040; 87070; 87077; 87086; 93005; 94640; 94664; A4217; C1758; G0378; J1450; J2185; J2270; J2370; J2543; J3370; J3490; J7030; J7050; J7060; J7614